=== PATIENT | male | born 1950 | race Caucasian/White ===

== ENCOUNTER 2020-10-01 11:00 | Emergency (ER) | payer MEDICARE, SELFPAY ==
[2020-10-01] VITALS (25 sets, daily range): BP systolic 123–159; BP diastolic 64–113; PULSE 44–64; RESP 12–24; TEMP 36.8; O2SAT 97–100
--- NOTE | 2020-10-01 11:08 | DI.RAD.S_ITS ---
PROCEDURE: XR CHEST 1V INDICATIONS: chest pain TECHNIQUE: One view of the chest was acquired. COMPARISON: None. FINDINGS: Surgical changes and devices: None. Lungs and pleura: Lungs are clear. No pleural effusions or pneumothorax. Mediastinum: Mediastinal contours appear normal. Heart size is normal. Bones and chest wall: No suspicious bony lesions. Overlying soft tissues appear unremarkable. IMPRESSION: No acute cardiopulmonary pathology. Dictated by: Jose Roberto Lerner M.D. on 10/01/2020 at 11:25 Approved by: Jose Roberto Lerner M.D. on 10/01/2020 at 11:28
[2020-10-01] MEDS: ASPIRIN 81 MG CHEW TAB 324 MG PO (11:18)
[2020-10-01] MEDS: NITROGLYCERIN 0.4 MG SL TAB SL ×2 (11:25→11:26)
--- NOTE | 2020-10-01 11:31 | PC.NURSE ---
Pt refusing 2nd dose of NTG SL despite RN's urging him to do so.
[2020-10-01 11:42] LABS: Add Manual Diff / Slide Review NO; Basophils Absolute Auto 100 /uL (0-100); Basophils Percent Auto 1.6 % (0-2); Eosinophils Absolute Auto 400 /uL (0-450); Eosinophils Percent Auto 7.7 % (2-4); Hematocrit 34.5 % (41-53); Hemoglobin 11.9 g/dL (13.5-17.5); Lymphocytes Absolute Auto 1500 /uL (1100-4500); Mean Corpuscular HGB Conc 34.4 % (30-36); Mean Corpuscular Hemoglobin 33.1 PG (26-34); Mean Corpuscular Volume 96.3 fL (80-100); Monocytes Absolute Auto 600 /uL (0-900); Monocytes Percent Auto 10.5 % (3-14); Neutrophils Absolute Auto 2700 /uL (1500-7000); Neutrophils Percent Auto 52.2 % (50-75); Platelet Count 278 X10^3/uL (150-400); Red Blood Cell Count 3.59 X10^6/uL (4.5-5.9); Red Cell Distribution Width 16.8 % (11.6-14.8); White Blood Cell Count 5.2 X10^3/uL (4.5-11.0)
--- NOTE | 2020-10-01 11:42 | ED_ITS ---
HPI - Chest Pain General Chief Complaint: Chest Pain Stated Complaint: chest pain Time Seen by Provider: 10/01/20 11:13 Source: patient and family Mode of arrival: Ambulatory Limitations: no limitations History of Present Illness HPI narrative: Patient is a 70-year-old male with history of coronary artery disease and 3 stents presenting with chest pain ongoing for the last 3 days. He says this in the center of his chest non radiating but he does notice some left arm numbness and tingling. Pain in his chest is not reproducible with left arm movement. He does nothing makes it better or worse. It does not appear that he is taking aspirin or Plavix. He denies any shortness of breath but does occasionally have a cough. He moved appear 2 months ago to be with his son. He denies any headache. He denies any exertional shortness of breath or orthopnea. He has no peripheral leg swelling. They did drive appear 2 months ago. He has not established care with a PCP. He admits to smoking a pack of cigarettes daily MD complaint: chest pain Onset (ago): day(s) (3) Duration: constant Onset: during rest Pain location: substernal Severity: moderate Severity scale (1-10): 4 Quality: aching Relieving factors: nothing Exacerbating factors: nothing Related Data Allergies Allergy/AdvReac Type Severity Reaction Status Date / Time amitriptyline [From Elavil] Allergy Unknown Verified 10/01/20 11:13 Review of Systems Review of Systems ROS Unobtainable: All systems reviewed & are unremarkable except as noted in HPI and below Constitutional Constitutional: Denies chills, Denies fever(s), Denies lethargy and Denies weakness Eyes Eyes: Denies change in vision, Denies eye discharge, Denies irritation and Denies loss of vision Cardiovascular Cardiovascular: Reports as per HPI, Denies dyspnea and Denies dyspnea on exertion Respiratory Respiratory: Denies cough, Denies dyspnea, Denies dyspnea on exertion and Denies wheezing Gastrointestinal Gastrointestinal: Denies abdominal pain, Denies change in bowel habits, Denies diarrhea, Denies nausea and Denies vomiting Musculoskeletal Musculoskeletal: Reports numbness and Reports tingling Comments: Chronic ongoing back pain not any worse Integumentary/Breasts Skin/Breast: Denies pruritus, Denies erythema, Denies rash and Denies wounds Neurologic Neurologic: Denies loss of vision, Reports numbness, Reports tingling and Denies weakness Allergic/Immunologic Allergic/Immunologic: Denies wheezing Patient History Social History Smoking Status: Current every day smoker Smoking Status: Current every day smoker tobacco type: cigarettes Substance Use Type: does not use Exam Initial Vital Signs Initial Vital Signs: Vital Signs Temperature 98.2 F 10/01/20 11:00 Pulse Rate 59 L 10/01/20 11:00 Respiratory Rate 24 10/01/20 11:00 Blood Pressure 159/113 H 10/01/20 11:00 Pulse Oximetry 100 10/01/20 11:00 GENERAL: Well-appearing, well-nourished and in no acute distress. HEENT: Head atraumatic,EOMI, pupils reactive, face symmetric, moist mucous membranes CARDIOVASCULAR: Regular rate and rhythm without murmurs, rubs or gallops. RESPIRATORY: Breath sounds equal bilaterally, no wheezes rales or rhonchi. ABDOMEN: Soft, nontender. Normoactive bowel sounds all 4 quadrants. No guard ing or rebound. EXTREMITIES: Normal range of motion, no clubbing or edema. Neurovascularly intact NEUROLOGICAL: Alert and oriented x4.Normal gait and speech. Cranial nerves II through XII grossly intact. SKIN: Warm, dry, no laceration, no petechiae, no rashes or lesions. Course Orders Ordered: ED Orders 10/01/20 11:08 XR chest 1V Stat EKG-12 Lead Stat 10/01/20 11:11 BNP [NT-proBNP (BNP-Adult 18+)] Stat Complete Blood Count AUTO DIFF Stat Comprehensive Metabolic Panel Stat D Dimer Stat Lipase Stat Magnesium Stat Partial Thromboplastin Time Stat Prothrombin Time INR Stat Troponin & CK Cardiac Panel Stat 10/01/20 11:25 COVID19 -Nasal swab/Pre-Proc Stat 10/01/20 12:19 EKG-12 Lead Stat Discontinued Medications Aspirin (Aspirin 81 Mg Chew Tab) 324 mg PO NOW ONE Stop: 10/01/20 11:09 Last Admin: 10/01/20 11:18 Dose: 324 mg Documented by: HARMONY Nitroglycerin (Nitroglycerin 0.4 Mg Sl Tab) 0.4 mg SL [id number] PRN PRN Reason: Chest Pain Last Admin: 10/01/20 11:26 Dose: 0.4 mg Documented by: Admin: 10/01/20 11:25 Dose: 0.4 mg Documented by: HARMONY Vital Signs Vital signs: Vital Signs - 8 hr 10/01/20 11:00 10/01/20 11:19 10/01/20 11:25 Temperature 98.2 F Pulse Rate 59 L 64 55 L Respiratory Rate 24 18 16 Blood Pressure 159/113 H 141/82 H Pulse Oximetry 100 100 100 10/01/20 11:26 10/01/20 11:30 10/01/20 11:35 Temperature Pulse Rate 56 L 57 L 57 L Respiratory Rate 13 13 Blood Pressure 141/82 H 137/74 138/80 Pulse Oximetry 99 99 10/01/20 11:45 10/01/20 11:50 10/01/20 11:55 Temperature Pulse Rate 52 L 50 L 50 L Respiratory Rate 14 16 16 Blood Pressure 155/75 H 132/70 131/70 Pulse Oximetry 98 99 98 10/01/20 12:00 10/01/20 12:05 10/01/20 12:10 Temperature Pulse Rate 49 L 50 L 52 L Respiratory Rate 16 14 19 Blood Pressure 129/71 132/74 127/64 Pulse Oximetry 97 98 97 10/01/20 12:15 10/01/20 12:20 10/01/20 12:25 Temperature Pulse Rate 51 L 51 L 49 L Respiratory Rate 17 15 16 Blood Pressure 133/68 135/71 134/72 Pulse Oximetry 98 99 98 10/01/20 12:30 10/01/20 12:40 10/01/20 12:45 Temperature Pulse Rate 48 L 49 L 48 L Respiratory Rate 14 14 14 Blood Pressure 132/64 123/67 Pulse Oximetry 98 98 97 10/01/20 12:50 10/01/20 12:55 10/01/20 13:00 Temperature Pulse Rate 50 L 47 L 50 L Respiratory Rate 15 12 21 Blood Pressure 129/70 135/69 Pulse Oximetry 98 98 97 10/01/20 13:01 10/01/20 13:05 10/01/20 13:10 Temperature Pulse Rate 48 L 46 L 44 L Respiratory Rate 19 15 15 Blood Pressure 155/78 H 133/64 132/70 Pulse Oximetry 97 97 100 10/01/20 13:15 Temperature Pulse Rate 44 L Respiratory Rate 13 Blood Pressure 138/75 Pulse Oximetry 99 MDM - Chest Pain Lab Data Attestation: I reviewed the patient's lab results. Result diagrams: 10/01/20 11:11 10/01/20 11:11 Labs: Lab Results 10/01/20 10/01/20 10/01/20 Range/Units 11:11 11:11 11:11 WBC 5.2 (4.5-11.0) X10^3/uL RBC 3.59 L (4.5-5.9) X10^6/uL Hgb 11.9 L (13.5-17.5) g/dL Hct 34.5 L (41-53) % MCV 96.3 (80-100) fL MCH 33.1 (26-34) PG MCHC 34.4 (30-36) % RDW 16.8 H (11.6-14.8) % Plt Count 278 (150-400) X10^3/uL Neut % (Auto) 52.2 (50-75) % Lymph % (Auto) 28.0 (25-40) % [place] % (Auto) 10.5 (3-14) % Eos % (Auto) 7.7 H (2-4) % Baso % (Auto) 1.6 (0-2) % Neut # (Auto) 2700 (3331-6174) /uL Lymph # (Auto) 1500 (6887-0574) /uL [place] # (Auto) 600 (0-900) /uL Eos # (Auto) 400 (0-450) /uL Baso # (Auto) 100 (0-100) /uL PT 11.4 (10.1-12.7) SECONDS INR 1.0 (0.9-1.3) APTT 35 (26.4-36.2) SECONDS D-Dimer 368 H (<230) ng/mL Sodium 143 (137-145) mmol/L Potassium 4.4 (3.4-5.1) mmol/L Chloride 107 (98-107) mmol/L Carbon Dioxide 27 (22-32) mmol/L BUN 22 H (9-20) mg/dL Creatinine 1.57 H (0.66-1.25) mg/dL Estimated GFR 44.2 L (>60) mL/min BUN/Creatinine Ratio 14.0 (6-22) Glucose 105 (80-110) mg/dL Calcium 10.4 H (8.4-10.2) mg/dL Magnesium (1.6-2.3) mg/dL Total Bilirubin 0.5 (0.2-1.3) mg/dL AST 46 (17-59) IU/L ALT 33 (<50) IU/L Alkaline Phosphatase 513 H (38-126) U/L Total Creatine Kinase 93 (55-170) U/L CK-MB (CK-2) TNP CK-MB (CK-2) Rel Index TNP Troponin I < 0.012 (0.01-0.034) ng/mL NT-Pro-B Natriuret Pep (<125) pg/mL Total Protein 8.7 H (6.3-8.2) g/dL Albumin 4.7 (3.5-5.0) g/dL Globulin 4.0 (1.7-4.1) g/dL Albumin/Globulin Ratio 1.2 (1.0-2.8) Lipase 72 (23-300) U/L SARS-CoV-2 (PCR) (Negative) 10/01/20 10/01/20 Range/Units 11:11 11:25 WBC (4.5-11.0) X10^3/uL RBC (4.5-5.9) X10^6/uL Hgb (13.5-17.5) g/dL Hct (41-53) % MCV (80-100) fL MCH (26-34) PG MCHC (30-36) % RDW (11.6-14.8) % Plt Count (150-400) X10^3/uL Neut % (Auto) (50-75) % Lymph % (Auto) (25-40) % [place] % (Auto) (3-14) % Eos % (Auto) (2-4) % Baso % (Auto) (0-2) % Neut # (Auto) (1709-5498) /uL Lymph # (Auto) (0398-5165) /uL [place] # (Auto) (0-900) /uL Eos # (Auto) (0-450) /uL Baso # (Auto) (0-100) /uL PT (10.1-12.7) SECONDS INR (0.9-1.3) APTT (26.4-36.2) SECONDS D-Dimer (<230) ng/mL Sodium (137-145) mmol/L Potassium (3.4-5.1) mmol/L Chloride (98-107) mmol/L Carbon Dioxide (22-32) mmol/L BUN (9-20) mg/dL Creatinine (0.66-1.25) mg/dL Estimated GFR (>60) mL/min BUN/Creatinine Ratio (6-22) Glucose (80-110) mg/dL Calcium (8.4-10.2) mg/dL Magnesium 2.3 (1.6-2.3) mg/dL Total Bilirubin (0.2-1.3) mg/dL AST (17-59) IU/L ALT (<50) IU/L Alkaline Phosphatase (38-126) U/L Total Creatine Kinase (55-170) U/L CK-MB (CK-2) CK-MB (CK-2) Rel Index Troponin I (0.01-0.034) ng/mL NT-Pro-B Natriuret Pep 187 H (<125) pg/mL Total Protein (6.3-8.2) g/dL Albumin (3.5-5.0) g/dL Globulin (1.7-4.1) g/dL Albumin/Globulin Ratio (1.0-2.8) Lipase (23-300) U/L SARS-CoV-2 (PCR) Negative (Negative) Imaging Data Chest x-ray: Radiologist's Impression: PROCEDURE: XR CHEST 1V INDICATIONS: chest pain TECHNIQUE: One view of the chest was acquired. COMPARISON: None. FINDINGS: Surgical changes and devices: None. Lungs and pleura: Lungs are clear. No pleural effusions or pneumothorax. Mediastinum: Mediastinal contours appear normal. Heart size is normal. Bones and chest wall: No suspicious bony lesions. Overlying soft tissues dustin ear unremarkable. IMPRESSION: No acute cardiopulmonary pathology. Dictated by: Jose Roberto Lerner M.D. on 10/01/2020 at 11:25 ECG Data Attestation: I personally reviewed and interpreted this ECG as follows: Prior ECG tracings: not available for review Interpretation: EKG 1. Sinus rhythm rate 56 WV interval 150 QRS [address] changes some artifact noted EKG 2. Sinus rhythm rate [address] changes similar to prior MDM Narrative Medical decision making narrative: 3277, at this time I recommended patient be transferred to [facility] for Cardiology can see and evaluate him. Symptoms are certainly concerning although blood work and EKGs are reassuring. Patient does not want to be admitted to hospital he does not want to be transferred. He is fully aware that cardiac etiology has not been completely ruled out and that he needs stress test approximately heart catheterization. He understands consequence of if no further evaluation. Son is in the room for this conversation. At this time patient would like to leave and go home nitroglycerin has taken away his pain. I have encouraged him to get a primary care provider and follow-up with cardiology as soon as possible he is also on her discharge return to the emergency department if his symptoms should worsen. Patient will be leaving against medical advice The patient is clinically sober, free from distracting injury, appears to have intact insight, judgment and reason. Does not meet criteria for involuntary hos pitalization. Patient has the capacity to make decisions. Discharge Plan Departure Patient Disposition: Left Against Medical Advice Clinical Impression: Chest pain Instructions: DI for Chest Pain Activity Restrictions/Additional Instructions: *You have been diagnosed with chest pain *What to do: Is strongly recommended that he stay in the hospital to have further heart testing. You need an echocardiogram and a stress test. Is recommended that you be transferred to [facility] she could be evaluated by a carton packaging machine operator and have is more testing done. You are welcome to return to any emergency department any time if her chest pain should return or worsen. It is also recommended that he call 911 if you should have worsening chest pain *Continue to take medications as directed Aspirin 81 mg *Follow up with your primary care provider in 2-3 days *Return to ER if you should have increasing chest pain, shortness of breath, weakness numbness or tingling or any new, worsening or concerning symptoms Referrals: Juan Manuel Duarte MD [Non-Staff] - Pedro Akers MD [Physician] - Stand Alone Forms: Against Medical Advice
[2020-10-01 11:48] LABS: Prothrombin Time 11.4 SECONDS (10.1-12.7)
[2020-10-01 11:50] LABS: COVID19 -Nasal RAPID Negative (Negative)
[2020-10-01 11:51] LABS: D Dimer 368 ng/mL (<230); PTT Partial Thromboplastin Tim 35 SECONDS (26.4-36.2)
[2020-10-01 11:54] LABS: Alanine Aminotransferase 33 IU/L (<50); Albumin 4.7 g/dL (3.5-5.0); Albumin Globulin Ratio 1.2 (1.0-2.8); Alkaline Phosphatase 513 U/L (38-126); Aspartate Aminotransferase 46 IU/L (17-59); Bilirubin Total 0.5 mg/dL (0.2-1.3); Blood Urea Nitrogen 22 mg/dL (9-20); Calcium 10.4 mg/dL (8.4-10.2); Carbon Dioxide 27 mmol/L (22-32); Chloride 107 mmol/L (98-107); Creatine Kinase 93 U/L (55-170); Estimated Glomerular Filt Rate 44.2 mL/min (>60); Glucose 105 mg/dL (80-110); HEMOLYSIS < 15 (0-50); Lipase 72 U/L (23-300); Potassium 4.4 mmol/L (3.4-5.1); Sodium 143 mmol/L (137-145); Total Protein 8.7 g/dL (6.3-8.2)
[2020-10-01 11:55] LABS: Magnesium 2.3 mg/dL (1.6-2.3)
[2020-10-01 12:07] LABS: NT-proBNP (BNP-Adult 18+) 187 pg/mL (<125)
[2020-10-01 12:11] LABS: Troponin I < 0.012 ng/mL (0.01-0.034)
== END 2020-10-01 13:29 | disposition left against medical advice (07) ==
PROVIDERS: Emergency Provider Emergency Medicine
DX: R07.9 Chest pain, unspecified (principal); R20.0 Anesthesia of skin; Z20.822 Contact with and (suspected) exposure to COVID-19
CPT/HCPCS: 36415; 71045; 80053; 82550; 83690; 83735; 83880; 84484; 85025; 85379; 85610; 85730; 87635; 93005; 93010; 99284; C9803

== ENCOUNTER → 2021-01-21 11:11 | Outpatient (CLI) | payer OTHER, SELFPAY ==
--- NOTE | 2021-01-21 | DI.RAD.S_ITS ---
PROCEDURE: XR KNEE RT 3V INDICATIONS: Pain in right knee TECHNIQUE: 3 views of the knee were acquired. COMPARISON: None. FINDINGS: Bones: No fractures or dislocations. No suspicious bony lesions. Chondrocalcinosis. Mild degenerative change. Soft tissues: No joint effusion. No suspicious soft tissue calcifications. IMPRESSION: Chondrocalcinosis. Mild degenerative change. No evidence acute bony abnormality of the right knee. If clinical suspicion and/or symptoms persist, further assessment with repeat plain films, or advanced imaging (e.g., CT, MRI, or bone scan) may be helpful for further assessment. Dictated by: Master Carrillo M.D. on 01/21/2021 at 15:12 Approved by: Master Carrillo M.D. on 01/21/2021 at 15:13
== END ==
PROVIDERS: PCP Internal Medicine; Referring Provider Internal Medicine; Visit Provider Internal Medicine
DX: M25.561 Pain in right knee (principal); M11.261 Other chondrocalcinosis, right knee; G89.29 Other chronic pain
CPT/HCPCS: 73562

== ENCOUNTER 2021-09-02 15:33 | Inpatient (IN) | payer OTHER, SELFPAY ==
[2021-09-02] VITALS (18 sets, daily range): BP systolic 149–219; BP diastolic 73–102; PULSE 50–64; RESP 14–29; TEMP 36.5–37; O2SAT 95–100; BMI 18.4
--- NOTE | 2021-09-02 15:47 | DI.CT.S_ITS ---
PROCEDURE: CT STROKE INDICATIONS: code stroke TECHNIQUE: Noncontrast 4.5 mm thick angled axial sections acquired from the foramen magnum to the vertex, with coronal reformats. For radiation dose reduction, the following was used: automated exposure control, adjustment of mA and/or kV according to patient size. COMPARISON: None. FINDINGS: Image quality: Excellent. CSF spaces: Basal cisterns are patent. No extra-axial fluid collections. The ventricles are symmetric in size and shape. Brain: No intracranial bleeds or masses. There is moderate cerebral volume loss for age, with resultant ventricular and sulcal prominence. There are severe periventricular and deep white matter chronic small vessel ischemic changes. There is intracranial internal carotid artery atherosclerosis. Skull and face: Calvarium and visualized facial bones appear intact, without suspicious lesions. Sinuses: Mucosal thickening noted in the sphenoid sinuses bilaterally, the of the left maxillary sinus, the left ethmoid air cells in the left frontal sinus. The mastoids are clear. IMPRESSION: 1. No acute intracranial disease process. 2. No intracranial hemorrhage. 3. Findings telephoned to Dr. Conroy on September 02, 2021 at 4:01 p.m. This study fulfills neurological imaging criteria for inclusion or exclusion of acute stroke therapies based on available published neurological guidelines. Dictated by: Naida Quick MD, PhD on 09/02/2021 at 16:02 Approved by: Naida Quick MD, PhD on 09/02/2021 at 16:06
--- NOTE | 2021-09-02 15:49 | DI.CT.S_ITS ---
PROCEDURE: CT ANGIO HEAD AND NECK INDICATIONS: code stroke TECHNIQUE: After the administration of intravenous contrast, 1 mm thick sections acquired from the aortic arch through the [employer] [place]. Post-contrast 4.5 mm thick sections then re-acquired from the foramen magnum to the vertex. 3-dimensional [id number] (MIP) and/or volume rendering reformats were acquired of the central intracranial vasculature and neck separately. COMPARISON: [facility], CT, CT STROKE, 09/02/2021, 15:50. FINDINGS: Image quality: Excellent. BRAIN: CSF spaces: Ventricles are normal in size and shape. Basal cisterns are patent. No extra-axial fluid collections. Brain: No midline shift. No intracranial bleeds or masses. No area of hypodensity in a large vascular distribution to suggest acute infarction. Periventricular hypodensity consistent with chronic microvascular ischemic change. Skull and face: Calvarium and facial bones appear intact, without suspicious lesions. Orbits appear normal. Sinuses: Left frontal sinus, paranasal sinus, and and maxillary sinus opacification. Mucosal thickening in the sphenoid sinuses. Right maxillary sinus is clear. Mastoids are clear. HEAD CT ANGIOGRAPHY: Anterior circulation: Intracranial internal carotid arteries are normal in size and flow. The flow within the paired anterior cerebral arteries is normal and symmetric. The flow within the middle cerebral arteries is normal and symmetric. The anterior communicating artery is seen. No aneurysms are seen. Posterior communicating arteries are hypoplastic or absent. Posterior circulation: Visualized portions of the vertebral arteries demonstrate normal caliber, and join to form a normal appearing basilar artery. Flow within the posterior cerebral arteries is normal and symmetric. No aneurysms are seen. NECK CT ANGIOGRAPHY: Carotid system: The great vessels demonstrate a conventional anatomy as they arise from the aortic arch. The origins of the common carotid arteries appear patent. The common carotid arteries demonstrate normal caliber and courses. The bifurcation regions are both patent. There is moderate calcified plaque at the right carotid bulb. No significant calcified plaque at the left carotid bulb. The internal carotid arteries demonstrate normal calibers and courses. Posterior circulation: The origins of the vertebral arteries both appear widely patent. The more superior extracranial portions of both vertebral arteries also demonstrate normal courses and calibers. They join to form a normal appearing basilar artery. Soft tissues: Visualized neck soft tissues demonstrate no suspicious abnormalities. Emphysematous change. Bones: No suspicious bony lesions. [id number] degenerative change in the cervical spine most pronounced at C5-C6. Visualized cervical spine appears normally aligned. IMPRESSION: 1. Chronic microvascular ischemic disease. 2. No large vessel occlusion. 3. No critical stenosis. Less than 50% stenosis in the ICAs. Moderate plaque at the right carotid bulb. 4. Left sinus opacification. 5. Emphysematous change at the lung apices. Comment: Findings were discussed with Abdon Conroy at the time of dictation. Any quantitative measurements of stenosis were performed using NASCET criteria. Dictated by: Fox Mazariegos M.D. on 09/02/2021 at 16:21 Approved by: Fox Mazariegos M.D. on 09/02/2021 at 16:34
[2021-09-02 16:04] LABS: Add Manual Diff / Slide Review NO; Basophils Absolute Auto 200 /uL (0-100); Basophils Percent Auto 2.7 % (0-2); Eosinophils Absolute Auto 1000 /uL (0-450); Eosinophils Percent Auto 16.1 % (2-4); Hematocrit 37.9 % (41-53); Hemoglobin 12.7 g/dL (13.5-17.5); Lymphocytes Absolute Auto 2100 /uL (1100-4500); Lymphocytes Percent Auto 33.9 % (25-40); Mean Corpuscular HGB Conc 33.4 % (30-36); Mean Corpuscular Hemoglobin 31.2 PG (26-34); Mean Corpuscular Volume 93.3 fL (80-100); Monocytes Absolute Auto 600 /uL (0-900); Monocytes Percent Auto 9.3 % (3-14); Neutrophils Absolute Auto 2400 /uL (1500-7000); Platelet Count 302 X10^3/uL (150-400); Red Blood Cell Count 4.06 X10^6/uL (4.5-5.9); White Blood Cell Count 6.3 X10^3/uL (4.5-11.0)
--- NOTE | 2021-09-02 16:14 | ED_ITS ---
HPI - Neuro Symptoms/Deficit General Chief Complaint: Neuro Symptoms/Deficit Stated Complaint: thinks he had a stroke today and 5 days ago Time Seen by Provider: 09/02/21 15:47 Source: patient Mode of arrival: Wheelchair History of Present Illness HPI Narrative: Patient is a 71-year-old male. States that he should be on medications but does not take any medications. Is diagnosed with high blood pressure. Nose that he has had a heart attack in the past that has many years ago. Thinks that several years ago he also had a stroke but this was never a specific diagnosis. He has had some left-sided weakness since that time. He has recently moved to the local area with his son. Approximately 5 days ago the patient's son started no ticing that he seemed to be having more problems with his left side. Dragging his left leg more than what he normally does. The patient also fell yesterday hitting his left side because of this. Did not seek treatment. Today at approximately 1000 hours patient was complaining of numbness on the left side of his face and also tingling and numbness of his right hand. Because of this patient was brought to the emergency department for evaluation. On Anticoagulants: No Related Data Allergies Allergy/AdvReac Type Severity Reaction Status Date / Time amitriptyline [From Elavil] Allergy Unknown Verified 10/01/20 11:13 Review of Systems Review of Systems ROS Unobtainable: All systems reviewed & are unremarkable except as noted in HPI and below Constitutional Constitutional: Denies fatigue, Denies fever(s) and Denies headache(s) Eyes Eyes: Denies change in vision ENT Ears, Nose, Mouth, and Throat: Denies headache(s) Cardiovascular Cardiovascular: Denies chest pain and Denies dyspnea Respiratory Respiratory: Denies cough and Denies dyspnea Gastrointestinal Gastrointestinal: Denies abdominal pain, Denies change in bowel habits, Denies nausea and Denies vomiting Musculoskeletal Musculoskeletal: Reports system reviewed and no additional complaints, except as documented and Reports as per HPI Integumentary/Breasts Skin/Breast: Reports system reviewed and no additional complaints, except as documented Neurologic Neurologic: Reports as per HPI, Denies confusion and Denies headache(s) Psychiatric Psychiatric: Denies confusion and Denies depression Endocrine Endocrine: Denies fatigue Hematologic/Lymphatic On Anticoagulants: No Allergic/Immunologic Allergic/Immunologic: Reports system reviewed and no additional complaints, except as documented Patient History Medical History Hypertension Social History household members: children Smoking Status: Current every day smoker alcohol intake: never Smoking Status: Current every day smoker tobacco type: cigarettes Substance Use Type: does not use Exam Initial Vital Signs Initial Vital Signs: Vital Signs Temperature 98.6 F 09/02/21 15:43 Pulse Rate 64 09/02/21 15:43 Respiratory Rate 20 09/02/21 15:43 Blood Pressure 208/102 H 09/02/21 15:43 Pulse Oximetry 100 09/02/21 15:43 Const General: cooperative and comfortable HENMT Head: normal to inspection and normocephalic Eyes General: appearance normal, both eyes and all related structures Pupils: PERRL EOM: EOM intact bilaterally Neck Neck: normal visual inspection Chest Chest: normal inspection of the chest Resp Effort & Inspection: normal respiratory effort Auscultation: clear to auscultation bilaterally Cardio Rate: regular rate Rhythm: regular rhythm GI Inspection: normal to inspection Skin General: no rashes or lesions noted Neuro General: patient alert, patient awake, patient oriented x3 and moves all extremities Speech: speech normal Extrem General: normal to inspection, capillary refill normal and No edema Psych Appearance: grossly normal and well kempt Scores GCS Inocencio coma scale eye opening: Spontaneous Eden coma scale verbal response: Orientated Eden coma scale motor response: Obey commands Eden coma scale total score: 15 NIH Stroke Scale Level of Conciousness: Alert, keenly responsive Ask month/age: Answers both questions correctly. Open/close eyes, close hand: Performs both tasks correctly Best gaze horizontal: Normal Visual burroughs: No visual loss Facial palsy: Normal symetrical movement Left arm drift: No drift for full 10 sec Right arm drift: No drift for full 10 sec Left leg drift: Drifts down, not to bed Right leg drift: No drift for full 5 sec Limb ataxia: Present in one limb Sensory on face/arms/legs: Mild to moderate sensory loss, can tell touch Best language: No aphasia, normal Dysarthria: Normal Extinction or inattention: No abnormality Total NIH Stroke scale score: 3 Course Orders Ordered: ED Orders 09/02/21 15:47 CT Stroke Stat 02/21/22 15:49 CT angio head and neck Stat 09/02/21 15:57 Complete Blood Count AUTO DIFF Stat Comprehensive Metabolic Panel Stat Lipase Stat Magnesium Stat Partial Thromboplastin Time Stat Prothrombin Time INR Stat Troponin & CK Cardiac Panel Stat 09/02/21 16:04 EKG-12 Lead Stat 09/02/21 16:24 COVID19 -Nasal swab/Pre-Proc Stat Acetaminophen (Acetaminophen 325 Mg Tablet) 650 mg PO Q6HR PRN PRN Reason: Fever/Mild Pain (1-3) Aspirin (Aspirin Ec 81 Mg Tablet) 81 mg PO DAILY [facility] Atorvastatin Calcium (Atorvastatin 20 Mg Tablet) 80 mg PO BEDTIME [facility] Clopidogrel Bisulfate (Clopidogrel 75 Mg Tablet) 75 mg PO DAILY [facility] Enoxaparin Sodium (Enoxaparin 40 Mg/0.4 Ml Syringe) 40 mg SUBCUT DAILY [facility] Labetalol HCl (Labetalol 20 Mg/4 Ml Syringe) 10 mg IV Q4HR PRN PRN Reason: Hypertension > 220 systolic Sodium Chloride (Sodium Chloride 0.9% Flush) 10 ml IV PRN PRN PRN Reason: Flush Sodium Chloride (Sodium Chloride 0.9% Flush) 10 ml IV BID NAYELY Discontinued Medications Labetalol HCl (Labetalol 20 Mg/4 Ml Syringe) 10 mg IV NOW ONE Stop: 09/02/21 16:16 Last Admin: 09/02/21 16:51 Dose: Not Given Documented by: BERNADETTE Labetalol HCl (Labetalol 20 Mg/4 Ml Syringe) 10 mg IV NOW ONE Stop: 09/02/21 17:14 Last Admin: 09/02/21 17:18 Dose: 10 mg Documented by: BERNADETTE Vital Signs Vital signs: Vital Signs - 8 hr 09/02/21 15:43 09/02/21 16:04 09/02/21 16:06 Temperature 98.6 F Pulse Rate 64 61 63 Respiratory Rate 20 23 Blood Pressure 208/102 H 211/97 H Pulse Oximetry 100 100 99 09/02/21 16:18 09/02/21 16:30 09/02/21 17:00 Temperature Pulse Rate 56 L 51 L 52 L Respiratory Rate 23 25 H 29 H Blood Pressure 165/98 H 186/86 H Pulse Oximetry 100 100 98 09/02/21 17:02 09/02/21 17:03 09/02/21 17:16 Temperature Pulse Rate 50 L 52 L 53 L Respiratory Rate 21 25 H 14 Blood Pressure 219/93 H 217/102 H 204/85 H Pulse Oximetry 98 99 98 09/02/21 17:18 Temperature Pulse Rate 50 L Respiratory Rate Blood Pressure 204/88 H Pulse Oximetry MDM - Neuro Symptoms/Deficit Lab Data Attestation: I reviewed the patient's lab results. Result diagrams: 09/02/21 15:57 09/02/21 15:57 Labs: Lab Results 09/02/21 09/02/21 09/02/21 Range/Units 15:57 15:57 15:57 WBC 6.3 (4.5-11.0) X10^3/uL RBC 4.06 L (4.5-5.9) X10^6/uL Hgb 12.7 L (13.5-17.5) g/dL Hct 37.9 L (41-53) % MCV 93.3 (80-100) fL MCH 31.2 (26-34) PG MCHC 33.4 (30-36) % RDW 16.0 H (11.6-14.8) % Plt Count 302 (150-400) X10^3/uL Neut % (Auto) 38.0 L (50-75) % Lymph % (Auto) 33.9 (25-40) % Dodge % (Auto) 9.3 (3-14) % Eos % (Auto) 16.1 H (2-4) % Baso % (Auto) 2.7 H (0-2) % Neut # (Auto) 2400 (0604-9599) /uL Lymph # (Auto) 2100 (5566-4957) /uL Dodge # (Auto) 600 (0-900) /uL Eos # (Auto) 1000 H (0-450) /uL Baso # (Auto) 200 H (0-100) /uL PT 11.0 (10.1-12.7) SECONDS INR 1.0 (0.9-1.3) APTT 34 (26.4-36.2) SECONDS Sodium 136 L (137-145) mmol/L Potassium 4.2 (3.4-5.1) mmol/L Chloride 102 (98-107) mmol/L Carbon Dioxide 29 (22-32) mmol/L BUN 31 H (9-20) mg/dL Creatinine 1.27 H (0.66-1.25) mg/dL Estimated GFR 56.2 L (>60) mL/min BUN/Creatinine Ratio 24.4 H (6-22) Glucose 103 (80-110) mg/dL Calcium 10.1 (8.4-10.2) mg/dL Magnesium 2.3 (1.6-2.3) mg/dL Total Bilirubin 0.7 (0.2-1.3) mg/dL AST 61 H (17-59) IU/L ALT 41 (<50) IU/L Alkaline Phosphatase 440 H (38-126) U/L Total Creatine Kinase 128 (55-170) U/L CK-MB (CK-2) 2.28 (<2.37) ng/mL CK-MB (CK-2) Rel Index 1.8 (1.5-5.0) % Troponin I < 0.012 (0.01-0.034) ng/mL Total Protein 8.6 H (6.3-8.2) g/dL Albumin 4.4 (3.5-5.0) g/dL Globulin 4.2 H (1.7-4.1) g/dL Albumin/Globulin Ratio 1.0 (1.0-2.8) Lipase 104 (23-300) U/L SARS-CoV-2 (PCR) (Negative) 09/02/21 Range/Units 16:24 WBC (4.5-11.0) X10^3/uL RBC (4.5-5.9) X10^6/uL Hgb (13.5-17.5) g/dL Hct (41-53) % MCV (80-100) fL MCH (26-34) PG MCHC (30-36) % RDW (11.6-14.8) % Plt Count (150-400) X10^3/uL Neut % (Auto) (50-75) % Lymph % (Auto) (25-40) % Dodge % (Auto) (3-14) % Eos % (Auto) (2-4) % Baso % (Auto) (0-2) % Neut # (Auto) (7687-2033) /uL Lymph # (Auto) (6509-9607) /uL Dodge # (Auto) (0-900) /uL Eos # (Auto) (0-450) /uL Baso # (Auto) (0-100) /uL PT (10.1-12.7) SECONDS INR (0.9-1.3) APTT (26.4-36.2) SECONDS Sodium (137-145) mmol/L Potassium (3.4-5.1) mmol/L Chloride (98-107) mmol/L Carbon Dioxide (22-32) mmol/L BUN (9-20) mg/dL Creatinine (0.66-1.25) mg/dL Estimated GFR (>60) mL/min BUN/Creatinine Ratio (6-22) Glucose (80-110) mg/dL Calcium (8.4-10.2) mg/dL Magnesium (1.6-2.3) mg/dL Total Bilirubin (0.2-1.3) mg/dL AST (17-59) IU/L ALT (<50) IU/L Alkaline Phosphatase (38-126) U/L Total Creatine Kinase (55-170) U/L CK-MB (CK-2) (<2.37) ng/mL CK-MB (CK-2) Rel Index (1.5-5.0) % Troponin I (0.01-0.034) ng/mL Total Protein (6.3-8.2) g/dL Albumin (3.5-5.0) g/dL Globulin (1.7-4.1) g/dL Albumin/Globulin Ratio (1.0-2.8) Lipase (23-300) U/L SARS-CoV-2 (PCR) Negative (Negative) Point of Care Testing Glucose POC [address] scan - head: Radiologist's Impression: [place] [address] CT Scan Report Signed Patient: Gareth Cotter MR#: [id number] : 1950 Acct:[id number] Age/Sex: 71 / M Date of Service: 09/02/21 Loc: ED Accession Number: [id number] ?? Procedure: CT Stroke Ordering Provider: Abdon Conroy D.O. PROCEDURE:? CT STROKE ? INDICATIONS:? code stroke ? TECHNIQUE:? Noncontrast 4.5 mm thick angled axial sections acquired from the foramen magnum to the vertex, with coronal reformats.? For radiation dose reduction, the following was used:? automated exposure control, adjustment of mA and/or kV according to patient size.? ? COMPARISON:? None. ? FINDINGS:? Image quality:? Excellent.? ? CSF spaces:? Basal cisterns are patent.? No extra-axial fluid collections.? The ventricles are symmetric in size and shape.? ? Brain:? No intracranial bleeds or masses.? There is moderate cerebral volume loss for age, with resultant ventricular and sulcal prominence.? There are severe periventricular and deep white matter chronic small vessel ischemic changes.? There is intracranial internal carotid artery atherosclerosis.? ? Skull and face:? Calvarium and visualized facial bones appear intact, without suspicious lesions.? ? Sinuses:? Mucosal thickening noted in the sphenoid sinuses bilaterally, the of the left maxillary sinus, the left ethmoid air cells in the left frontal sinus.? The mastoids are clear. ? IMPRESSION:? ? 1. No acute intracranial disease process.? ? 2. No intracranial hemorrhage. ? 3.? Findings telephoned to Dr. Conroy on September 02, 2021 at 4:01 p.m.? ? This study fulfills neurological imaging criteria for inclusion or exclusion of acute stroke therapies based on available published neurological guidelines.? ? ? Dictated by: Naida Quick MD, PhD on 09/02/2021 at 16:02 ? ? Approved by: Naida Quick MD, PhD on 09/02/2021 at 16:06? CTA - brain/neck: Radiologist's Impression: [place] [address] CT Scan Report Signed Patient: Gareth Cotter MR#: [id number] : 1950 Acct:[id number] Age/Sex: 71 / M Date of Service: 09/02/21 Loc: ED Accession Number: [id number] ?? Procedure: CT angio head and neck Ordering Provider: Abdon Conroy D.O. PROCEDURE:? CT ANGIO HEAD AND NECK ? INDICATIONS:? code stroke ? TECHNIQUE:? After the administration of intravenous contrast, 1 mm thick sections acquired from the aortic arch through the [place] of [place].? Post-contrast 4.5 mm thick sections then re-acquired from the foramen magnum to the vertex.? 3-dimensional lbvgsyk-ofcvfeagq-ghxuyqpsme (MIP) and/or volume rendering reformats were acquir ed of the central intracranial vasculature and neck separately. ? COMPARISON:? [facility], CT, CT STROKE, 09/02/2021, 15:50. ? FINDINGS:? Image quality:? Excellent.? ? BRAIN:? CSF spaces:? Ventricles are normal in size and shape.? Basal cisterns are patent.? No extra-axial fluid collections.? ? Brain:? No midline shift.? No intracranial bleeds or masses.? No area of hypodensity in a large vascular distribution to suggest acute infarction. Periventricular hypodensity consistent with chronic microvascular ischemic change. ? Skull and face:? Calvarium and facial bones appear intact, without suspicious lesions.? Orbits appear normal.? ? Sinuses:? Left frontal sinus, paranasal sinus, and and maxillary sinus opacification.? Mucosal thickening in the sphenoid sinuses.? Right maxillary sinus is clear.? Mastoids are clear. ? HEAD CT ANGIOGRAPHY:? Anterior circulation:? Intracranial internal carotid arteries are normal in size and flow.? The flow within the paired anterior cerebral arteries is normal and symmetric.? The flow within the middle cerebral arteries is normal and symmetric.? The anterior communicating artery is seen.? No aneurysms are seen.? Posterior communicating arteries are hypoplastic or absent. ? Posterior circulation:? Visualized portions of the vertebral arteries dem onstrate normal caliber, and join to form a normal appearing basilar artery.? Flow within the posterior cerebral arteries is normal and symmetric.? No aneurysms are seen.? ? NECK CT ANGIOGRAPHY:? Carotid system:? The great vessels demonstrate a conventional anatomy as they arise from the aortic arch.? The origins of the common carotid arteries appear patent.? The common carotid arteries demonstrate normal caliber and courses.? The bifurcation regions are both patent.? There is moderate calcified plaque at the right carotid bulb.? No significant calcified plaque at the left carotid bulb. The internal carotid arteries demonstrate normal calibers and courses.? ? Posterior circulation:? The origins of the vertebral arteries both appear widely patent.? The more superior extracranial portions of both vertebral arteries also demonstrate normal courses and calibers.? They join to form a normal appearing basilar artery.? ? Soft tissues:? Visualized neck soft tissues demonstrate no suspicious ab normalities.? Emphysematous change.? ? Bones:? No suspicious bony lesions.? Swlf-ou-zlyfgqga degenerative change in the cervical spine most pronounced at C5-C6.? Visualized cervical spine appears normally aligned.? ? ? IMPRESSION:? 1. Chronic microvascular ischemic disease. ? 2. No large vessel occlusion.? ? 3. No critical stenosis.? Less than 50% stenosis in the ICAs.? Moderate plaque at the right carotid bulb. ? 4. Left sinus opacification. ? 5. Emphysematous change at the lung apices.? ? Comment: Findings were discussed with Abdon Conroy at the time of dictation. ? Any quantitative measurements of stenosis were performed using NASCET criteria.? ? ? Dictated by: Fox Mazariegos M.D. on 09/02/2021 at 16:21 ? ? Approved by: Fox Mazariegos M.D. on 09/02/2021 at 16:34? ECG Data Attestation: I personally reviewed and interpreted this ECG as follows: Interpretation: Sinus rhythm Ventricular rate is 60 Normal axis Normal QRS Normal QTC Nonspecific ST T wave changes MDM Narrative Medical decision making narrative: Patient outside the window for tPA. Apparently his symptoms started worsening 5 days ago and he is greater than 4-1/2 hours after the onset of his symptoms today. Has an NIH score of 3. His head CT and CTA are unremarkable. Labs unremarkable. Patient is hypertensive. He knows he has a history of coronary artery disease and high blood pressure but does not take any medication. Given his presentation today do have concern about acute neurologic changes so will admit the patient for further evaluation and treatment. Discussed the case with Dr. Burch who will admit for further evaluation and treatment. Critical Care Time Critical Care Time Critical Care Time: Yes Total Critical Care Time: 35 Attestation: The high probability of a clinically significant, sudden or life threatening deterioration of the neurologic system(s) required my full and direct attention, intervention and personal management. The aggregate critical care time was [35] minutes. This time is in addition to time spent performing reported procedures but includes the following: [x] Data Review and interpretation [x] Patient assessment and monitoring of vital signs [x] Documentation [x] Medication orders and management Discharge Plan Departure Patient Disposition: Admitted As Inpatient Clinical Impression: Cerebrovascular accident, Hypertension Admit Date/Time: 09/02/21 17:20 Admit Provider: Noah Burch
[2021-09-02 16:18] LABS: PTT Partial Thromboplastin Tim 34 SECONDS (26.4-36.2)
[2021-09-02 16:22] LABS: Alanine Aminotransferase 41 IU/L (<50); Albumin 4.4 g/dL (3.5-5.0); Alkaline Phosphatase 440 U/L (38-126); Aspartate Aminotransferase 61 IU/L (17-59); BUN Creatinine Ratio 24.4 (6-22); Bilirubin Total 0.7 mg/dL (0.2-1.3); Blood Urea Nitrogen 31 mg/dL (9-20); Calcium 10.1 mg/dL (8.4-10.2); Carbon Dioxide 29 mmol/L (22-32); Chloride 102 mmol/L (98-107); Creatine Kinase 128 U/L (55-170); Estimated Glomerular Filt Rate 56.2 mL/min (>60); Globulin 4.2 g/dL (1.7-4.1); Glucose 103 mg/dL (80-110); HEMOLYSIS < 15 (0-50); Lipase 104 U/L (23-300); Magnesium 2.3 mg/dL (1.6-2.3); Potassium 4.2 mmol/L (3.4-5.1); Sodium 136 mmol/L (137-145); Total Protein 8.6 g/dL (6.3-8.2)
[2021-09-02 16:33] LABS: Troponin I < 0.012 ng/mL (0.01-0.034)
[2021-09-02 16:37] LABS: CKMB % Relative Index 1.8 % (1.5-5.0); Creatine Kinase MB 2.28 ng/mL (<2.37)
[2021-09-02 16:57] LABS: COVID19 -Nasal RAPID Negative (Negative)
[2021-09-02] MEDS: LABETALOL 20 MG/4 ML SYRINGE 10 MG IV (17:18)
--- NOTE | 2021-09-02 18:02 | DI.ECHO.S_ITS ---
[facility] +---------+ : : [address] : : : : [id number] : : : : Phone: [phone] Echocardiogram Report + + :Name: LINDA ROBERTSON Study Date: 09/03/2021 Height: 68 in : [facility] ReadingLocation: Weight: 140 lb : : Gender: Male BSA: 1.8 m2 : :: 1950 Age: 71 yrs BP: 149/85 mmHg: :Reason For Study: CVA : :Ordering Physician: TANVI, : :ZIA Performed By: Ute Ramirez : :Referring: ZIA TINAJERO : + + Interpretation Summary The left ventricle is normal in size and wall thickness. The ejection fraction is estimated to be 55-60%. The right ventricle is normal in size and function. The aortic valvue is likely bicuspid, uncertain due to suboptimal image quality. No significant valvular disease. Injection of contrast documented no interatrial shunt. No prior studies available for comparison. Procedure: A two-dimensional transthoracic echocardiogram with color flow and Doppler was performed. The study quality was technically adequate. There is no prior echocardiogram noted for this patient. A saline contrast injection was performed to assess for cardiac shunting. The injection was performed through an intravenous line in the right arm. The patient was in sinus bradycardia with heart rates between 46-54 bpm during the exam. Left Ventricle: The left ventricle is normal in size and wall thickness. RWT 0.38. The ejection fraction is estimated to be 55-60%. There are no focal wall motion abnormalities. Right Ventricle: The right ventricle is normal in size and function. Atria: The left atrial size is normal. Right atrial size is normal. There is no Doppler evidence for an interatrial shunt. Injection of contrast documented no interatrial shunt. Mitral Valve: The mitral valve is normal in structure and function. There is trace mitral regurgitation. Aortic Valve: The aortic valve is mildly calcified. The aortic valvue appears bicuspid. suboptial crossectional image aquality. There is no aortic valve stenosis. No aortic regurgitation is present. Tricuspid Valve: The tricuspid valve is normal in structure and function. There is mild tricuspid regurgitation. Pulmonic Valve: The pulmonic valve leaflets are thin and pliable; valve motion is normal. There is no pulmonic valvular regurgitation. Great Vessels: The aortic root is normal size. The ascending aorta could not be visualized. The IVC is of normal diameter and collapses greater than 50% with a sniff. This suggests a low right atrial pressure of 3 mm Hg. Pericardium/ Pleura There is no pericardial effusion. There is no pleural effusion. MMode/2D Measurements & Calculations LVIDd: 3.8 cm LVOT diam: 2.2 cm LVIDs: 2.6 cm Ao root diam: 3.7 cm FS: 31.8 % IVSd: 1.1 cm LVPWd: 0.73 cm LV longoria. diameter/BSA (cm/m^2): 2.2 LV sys. diameter/BSA (cm/m^2): 1.5 LA A2 area: 11.9 cm2 RA long axis: 4.1 cm LA A4 area: 13.4 cm2 RA area: 15.3 cm2 LA length (vol): 4.2 cm RA vol: 48.9 ml LA vol: 31.8 ml RA : 27.9 ml/m2 LA vol index: 18.1 ml/m2 IVC diam: 0.69 cm RVD1 (basal): 3.4 cm TAPSE: 1.7 cm Doppler Measurements & Calculations Ao V2 max: 87.6 cm/sec LVOT Max Vin: 77.0 cm/sec Ao V2 mean: 60.2 cm/sec LV V1 max P.4 mmHg Ao max P.1 mmHg LV V1 VTI: 17.9 cm Ao mean P.7 mmHg CHRISTINE(I,D): 3.6 cm2 Ao V2 VTI: 18.8 cm CHRISTINE(V,D): 3.3 cm2 sev ratio: 0.95 CHRISTINE indexed to BSA (cm^2/m^2): 2.0 MV E max vin: 48.1 cm/sec PA V2 max: 78.5 cm/sec MV A max vin: 37.1 cm/sec PA V2 mean: 55.0 cm/sec MV E/A: 1.3 PA mean P.4 mmHg Med Peak E' Vin: 5.9 cm/sec PA pr(Accel): 25.9 mmHg E/E' med: 8.2 Lat Peak E' Vin: 6.3 cm/sec E/E' lat: 7.6 E/e' average: 7.9 MV dec time: 0.21 sec SV(LVOT): 66.7 ml Reading Physician:DIANA
--- NOTE | 2021-09-02 18:06 | PM.HP.1 ---
History of Present Illness History of Present Illness Chief complaint: thinks he had a stroke today and 5 days ago Narrative: Mr. Cotter is a 71M with PMH CAD s/p stents, CVA, HTN, HL, GERD, depression who presents with left sided numbness and weakness. Patient states he has had a stroke in the past, it occurred while asleep over a year ago, at the time he was living in a different state. He has had residual left sided weakness since then. He also has CAD s/p stents. He is intermittently compliant with all his medications. He notes that he started having left sided numbness and weakness that started perhaps five days ago. He notes that it began worsening especially in the last two days. He was unsteady and fell yesterday and bruised his torso. Today he noted worsening numbness in his left hand that then included numbness in his leg and slight numbness in his right hand. He felt his left leg and hand were weaker than his baseline. His son notes some chronic decline and that he has had incontinent episodes overnight. He denies any saddle anesthesia. In the ED workup was done, vitals notable for blood pressure 208/102. Labs notable for WBC 6.3, hgb 12.7, plts 302. Na 136, BUN 31, creatinine 1.27. CT head and CT head/neck showed no acute process. He was admitted for further treatment. PMH: CAD s/p stents, CVA, HTN, HL, GERD, Depression Social history: smokes cigarettes occasionally, marijuana smoker, rare alcohol use Family history: denies stroke or CVA in parents Patient History Family & Social History Tobacco & Substance use: Smoking Status Current every day smoker Substance Use Type does not use Meds Home Medications and Allergies Allergies Allergy/AdvReac Type Severity Reaction Status Date / Time amitriptyline [From Elavil] Allergy Unknown Verified 10/01/20 11:13 Review of Systems Review of Systems Narrative: 14 systems reviewed and negative aside from what is noted in HPI Exam Vital Signs (past 8 hours): - 09/02/21 15:43 09/02/21 16:04 09/02/21 16:06 Temperature 98.6 F Pulse Rate 64 61 63 Respiratory Rate 20 23 Blood Pressure 208/102 H 211/97 H Pulse Oximetry 100 100 99 09/02/21 16:18 09/02/21 16:30 09/02/21 17:00 Temperature Pulse Rate 56 L 51 L 52 L Respiratory Rate 23 25 H 29 H Blood Pressure 165/98 H 186/86 H Pulse Oximetry 100 100 98 09/02/21 17:02 09/02/21 17:03 09/02/21 17:16 Temperature Pulse Rate 50 L 52 L 53 L Respiratory Rate 21 25 H 14 Blood Pressure 219/93 H 217/102 H 204/85 H Pulse Oximetry 98 99 98 09/02/21 17:18 09/02/21 17:30 09/02/21 17:31 Temperature Pulse Rate 50 L 52 L 51 L Respiratory Rate 18 19 Blood Pressure 204/88 H 180/81 H Pulse Oximetry 99 99 Oxygen Delivery Method Room Air Narrative Exam Narrative: GEN: no acute distress HEENT: moist mucous membranes NECK: trachea midline, no JVD PULM: clear bilaterally, no wheezes, rhonchi, rales ABD: soft, nontender, nondistended, no organomeagly, normal bowel sounds EXT: warm and well perfused with no edema SKIN: bruises on trunk NEURO: awake alert, speech clear, no facial droop, ataxic with heel to diaz and finger to nose, subjective numbness in left palm, 4/5 strength hand drip and left ankle, right side with normal strength PSYCH: pleasant, appropriate affect Objective Labs Result Diagrams: 09/02/21 15:57 09/02/21 15:57 Labs: Laboratory Results - last 24 hr 09/02/21 09/02/21 09/02/21 15:57 15:57 15:57 WBC 6.3 RBC 4.06 L Hgb 12.7 L Hct 37.9 L MCV 93.3 MCH 31.2 MCHC 33.4 RDW 16.0 H Plt Count 302 Neut % (Auto) 38.0 L Lymph % (Auto) 33.9 [place] % (Auto) 9.3 Eos % (Auto) 16.1 H Baso % (Auto) 2.7 H Neut # (Auto) 2400 Lymph # (Auto) 2100 [place] # (Auto) 600 Eos # (Auto) 1000 H Baso # (Auto) 200 H PT 11.0 INR 1.0 APTT 34 Sodium 136 L Potassium 4.2 Chloride 102 Carbon Dioxide 29 BUN 31 H Creatinine 1.27 H Estimated GFR 56.2 L BUN/Creatinine Ratio 24.4 H Glucose 103 Calcium 10.1 Magnesium 2.3 Total Bilirubin 0.7 AST 61 H ALT 41 Alkaline Phosphatase 440 H Total Creatine Kinase 128 CK-MB (CK-2) 2.28 CK-MB (CK-2) Rel Index 1.8 Troponin I < 0.012 Total Protein 8.6 H Albumin 4.4 Globulin 4.2 H Albumin/Globulin Ratio 1.0 Lipase 104 SARS-CoV-2 (PCR) 09/02/21 16:24 WBC RBC Hgb Hct MCV MCH MCHC RDW Plt Count Neut % (Auto) Lymph % (Auto) [place] % (Auto) Eos % (Auto) Baso % (Auto) Neut # (Auto) Lymph # (Auto) [place] # (Auto) Eos # (Auto) Baso # (Auto) PT INR APTT Sodium Potassium Chloride Carbon Dioxide BUN Creatinine Estimated GFR BUN/Creatinine Ratio Glucose Calcium Magnesium Total Bilirubin AST ALT Alkaline Phosphatase Total Creatine Kinase CK-MB (CK-2) CK-MB (CK-2) Rel Index Troponin I Total Protein Albumin Globulin Albumin/Globulin Ratio Lipase SARS-CoV-2 (PCR) Negative Assessment & Plan Assessment & Plan narrative: Mr. Cotter is a 71M with PMH CVA, CAD s/p stents, HTN, HL who presents with worsening left sided weakness and numbness concering for possible CVA 1. Subacute left sided numbness/weakness -concern for possible etiology of cva -CT head and CT angio head/neck show no acute process -symptoms have been occurring for days, patient is well outside window for TPA -patient takes aspirin at home, will continue -add plavix and high dose statin -[facility] q4 -check lipids and a1c -ordered PT/OT and speech therapy -swallow screen ordered -he does note bilateral symptoms, though left > right, also some possible incontinence, no neck pain, but will rule out cervical disease with c-spine CT 2. History of CVA -continue aspirin, statin 3. History of CAD s/p stents -continue aspirin, statin 4. Hypertensive urgency -for now as patient has likely had acute cva allow for permissive hypertension -goal is for sbp <220, bring down BP slowly -ordered for PRN labetalol 5. Elevated creatinine -on admit creatinine of 1.27 -last checked in September 2020 was 1.57 -probable CKD stage 2 -monitor creatinine closely 5. Hyperlipidemia -continue statin 6. GERD -continue ppi 7. Depression -continue sertraline CODE: DNR Proxy: Wander Cotter, son I have utilized all available resources to reconcile patient's home medications Time Spent With Patient Critical Care time: I spent a total of [] minutes of critical care time on this patient's care today; this time is exclusive of procedural time. Quality MIPS - Admit I confirm the patient?s Advance Care Plan is present, Code status is documented, Surrogate decision maker is in patient?s record [If Yes, STOP here]: Yes
[2021-09-02] MEDS: ATORVASTATIN 20 MG TABLET 80 MG PO (20:28)
[2021-09-02] MEDS: SODIUM CHLORIDE 0.9% FLUSH 10 ML IV (20:29)
[2021-09-02] MEDS: ZOLPIDEM 5 MG TABLET PO (20:54)
[2021-09-03] VITALS (13 sets, daily range): BP systolic 140–171; BP diastolic 78–86; PULSE 49–55; RESP 16–18; TEMP 36.4–37.2; O2SAT 95–100
[2021-09-03 05:56] LABS: Add Manual Diff / Slide Review NO; Basophils Absolute Auto 100 /uL (0-100); Basophils Percent Auto 2.1 % (0-2); Eosinophils Absolute Auto 1100 /uL (0-450); Eosinophils Percent Auto 16.6 % (2-4); Hematocrit 35.8 % (41-53); Hemoglobin 11.8 g/dL (13.5-17.5); Lymphocytes Absolute Auto 1700 /uL (1100-4500); Lymphocytes Percent Auto 26.6 % (25-40); Mean Corpuscular Hemoglobin 30.9 PG (26-34); Mean Corpuscular Volume 93.6 fL (80-100); Monocytes Absolute Auto 600 /uL (0-900); Monocytes Percent Auto 8.9 % (3-14); Neutrophils Absolute Auto 3000 /uL (1500-7000); Neutrophils Percent Auto 45.8 % (50-75); Platelet Count 257 X10^3/uL (150-400); Red Blood Cell Count 3.83 X10^6/uL (4.5-5.9); Red Cell Distribution Width 16.5 % (11.6-14.8); White Blood Cell Count 6.5 X10^3/uL (4.5-11.0)
[2021-09-03 06:02] LABS: BUN Creatinine Ratio 25.4 (6-22); Blood Urea Nitrogen 30 mg/dL (9-20); Calcium 9.6 mg/dL (8.4-10.2); Carbon Dioxide 25 mmol/L (22-32); Chloride 105 mmol/L (98-107); Cholesterol 224 mg/dL (140-199); Estimated Glomerular Filt Rate > 60.0 mL/min (>60); Glucose 87 mg/dL (80-110); HDL Cholesterol 55 mg/dL (40-60); HEMOLYSIS < 15 (0-50); LDL Cholesterol Calculated 142 mg/dL (<100); Sodium 135 mmol/L (137-145); Triglycerides 134 mg/dL (35-150)
[2021-09-03 06:12] LABS: Hemoglobin A1C% w Est Avg Glu 5.4 % (4.0-6.0)
[2021-09-03] MEDS: ENOXAPARIN 40 MG/0.4 ML SYRINGE SUBCUT (10:11)
[2021-09-03] MEDS: CLOPIDOGREL 75 MG TABLET PO (10:11)
[2021-09-03] MEDS: ASPIRIN EC 81 MG TABLET PO (10:11)
[2021-09-03] MEDS: SODIUM CHLORIDE 0.9% FLUSH 10 ML IV ×2 (10:11→20:48)
--- NOTE | 2021-09-03 11:03 | OT.IP.EVAL ---
Past Medical History (Last Reviewed 09/02/21 @ 18:49 by Abdon Conroy DO) Hypertension Occupational Therapy Inpatient Evaluation/Re-Eval M1 PT/OT-IP Prior Functional Status Start: 09/03/21 09:37 Freq: NEEDED Status: Active Protocol: Document 09/03/21 10:35 [facility] (Rec: 09/03/21 11:47 [facility] [id number]) Medical Review Prior Functional Status Medical History Reviewed Yes Mobility and Gait Gareth was living in his son's basement. He reports he was mostly just lying in bed. He does have a 4WW. He reports he needed the assistance of his son for all ADLs. No stairs to enter. His son does work, but pt reports DIL would be available If I yelled Activities of Daily Living and IADL's Pt states prior to two weeks ago able to do all his ADL need and able to walk with his 4ww on his own. Social History Household Members children Living Arrangements House Number of Floors (Floors) Two Floors Number of Stairs To Enter/Railing? 0 Home Environment Standard Height Toilet,Tub/ Shower Home Equipment Four Wheel Walker,Shower Seat with Backrest,Hand Held Shower Employment Status Retired M2 OT-IP Current Condition Start: 09/03/21 11:31 Freq: Status: Active Protocol: Document 09/03/21 10:35 [facility] (Rec: 09/03/21 11:47 [facility] [id number]) Occupational Therapy Current Condition Current Condition Evaluation Date 09/03/21 Treatment Diagnosis CVA, decreased mobility Diagnosis Onset Date 09/02/21 M3 OT- IP Subjective and Pain Start: 09/03/21 11:31 Freq: Status: Active Protocol: Document 09/03/21 10:35 [facility] (Rec: 09/03/21 11:47 [facility] [id number]) OT- Subjective Occupational Therapy Visit Type Type Initial Evaluation Visit Start Time 10:35 Visit Stop Time 11:03 Total Visit Minutes 28 Occupational Therapy Visit Comments Patient Comments Pt agreed to get up for OT eval. Patient/Caregiver Goals TO get better. OT Pain Assessment Pain When Pain Assessed At Rest Pain Present Pain Present Denied Pain M4 OT- IP ADL's Start: 09/03/21 11:31 Freq: Status: Active Protocol: Document 09/03/21 10:35 [facility] (Rec: 09/03/21 11:47 [facility] [id number]) OT LCL-Jvlj-Ysuaved Comments OT Self-Feeding Comments NOt at meal time. OT ADL-Grooming Comments OT Grooming Comments Not performed. OT ADL-Dressing General Eval Lower Body Dressing Ability Maximum Assistance Comments OT Dressing Comments Pt needing MAX A for LB dressing due to decreased sitting balance. OT ADL-Toileting Comments OT Toileting Comments Pt not having to go. OT ADL-Bathing Comments OT Bathing Comments NOt performed. M5 OT- IP IADL's Start: 09/03/21 11:31 Freq: Status: Active Protocol: Document 09/03/21 10:35 [facility] (Rec: 09/03/21 11:47 [facility] [id number]) OT-Instrumental Activities of Daily Living Medication Management Medication Management Caregiver Administers Money Management Money Management Caregiver Provides Assistance Meal Preparation Meal Preparation Caregiver Provides Assist Poly Area Supervisor Poly Area Supervisor Caregiver Provides Assist M6 OT- IP Functional Cognition Start: 09/03/21 11:31 Freq: Status: Active Protocol: Document 09/03/21 10:35 [facility] (Rec: 09/03/21 11:47 [facility] [id number]) Cognitive Factors Limiting Selfcare Function Cognitive Ability Level of Alertness Alert Patient Orientation Name,Place Attention Span Ability Capable of Focused Attention, Capable of Sustained Attention Ability to Follow Commands Able to Follow One Step Commands Cognitive Comments Cognitive Assessment Comments Pt able to follow commands for bed mobility and needing assistance for for reassurance and safety. Pt is very fearful of falling. OT- Vision and Hearing OT- Vision Assessment Visual Acuity Glasses For Reading Vision Assessment Comments Pt having trouble to read the clock accurately. M7 OT- IP Mobility and Balance Start: 09/03/21 11:31 Freq: Status: Active Protocol: Document 09/03/21 10:35 [facility] (Rec: 09/03/21 11:47 [facility] [id number]) OT- Bed Mobility Assessment Rolling Type of Rolling Roll to Right Level of Assistance Minimal Assistance Supine to Sit Supine to Sit Assist Moderate Assistance,1 Person Assistance Scooting Scooting to Edge of Bed Contact Guard Assistance OT-Transfer Assessment Sit to and From Stand Sit to and from Stand Minimal Assistance,Moderate Assistance Technique Transfer Destination Bed Transfer Technique Stand Step Pivot Devices Transfer Assistive Devices Gait Belt,Front Wheeled Walker Comments Mobility Comments Pt needing MODA from sidelying to sitting at the edge of the bed. MIN/MODA to stand to FWW . OT- Balance Assessment Sitting Balance and Reactions Static Sitting Balance Ability Poor Dynamic Sitting Balance Ability Poor Standing Balance and Reactions Static Standing Balance Ability Poor Comments Other Balance Tests/Deviations/Treatment Pt tends to lean backwards : while sitting upright. M8 OT- IP Objective Assessments Start: 09/03/21 11:31 Freq: Status: Active Protocol: Document 09/03/21 10:35 [facility] (Rec: 09/03/21 11:47 [facility] [id number]) OT Gross Range of Motion Upper Extremity Range of Motion Assessment Within Functional Limits OT Strength Comments Strength Comments RUE 5/5, LUE 4-/5 to 4/5 OT- Coordination Assessment Upper Extremity Finger to Nose Test Left UE Impaired OT Sensation Assessment Comments Summary Comments Numbness of rright hand and throughout left arm M9 OT- IP Assessment and Plan Start: 09/03/21 11:31 Freq: Status: Active Protocol: Document 09/03/21 10:35 [facility] (Rec: 09/03/21 11:47 [facility] [id number]) OT Summary Assessment and Plan Potential Rehabilitation Potential Good Analytic Complexity at Evaluation Moderate Summary OT Impairments Strength,Balance,Coordination, Sensation,Functional Cognition ,Functional Mobility,Self- Feeding,Grooming,Dressing, Toileting,Bathing,Toilet Transfers,Shower Transfers, Activity Tolerance Progress Towards Goals Slow Progress due to Medical Issues,Slow Progress due to Activity Tolerance Assessment Summary Pt MOD complexity and main barriers are decreased dynamic sitting balance, unsteady on his feet, decreased activity tolerance, and now needing assist for all Adl and mobility needs and far for his baseline of 2 weeks ago of [place] with all needs except for SBA to get into and out of the shower. Pt would benefit from skilled rehab at this time. Goals Self-Feeding Goal Independent Grooming Goal Independent Dressing Goal Independent Toileting Goal Independent Bathing Goal Standby Assistance Toilet Transfer Goal Independent Shower Transfer Goal Independent Patient/Caregiver Education Goal Caregiver Independent Assisting Patient Days to Meet Goals 15 Frequency of Treatment Frequency Of Treatment Once a Day Treatment Plan OT Treatment Plan ADL Training,Functional Cognition Training,Functional Mobility,Patient/Family Education,Discharge Planning Discharge Recommendations OT Discharge Recommendations SNF Rehab Transportation Needs at Discharge Wheelchair/Cabulance
--- NOTE | 2021-09-03 11:12 | P.PN_ITS ---
Subjective Subjective Date Patient Seen: 09/03/21 Time Patient Seen: 11:12 Interval history: 71 year old male admitted with probable stroke. MRI confirmed today. Complains of left sided weakness and numbness, does not feel like he is steady on his feet. Complains that his left side constantly is feeling liike it's going to sleep. Exam Vital Signs (past 8 hours): - 09/03/21 04:00 09/03/21 06:00 09/03/21 08:00 Temperature 98.4 F 99 F Pulse Rate 52 L 51 L Respiratory Rate 16 16 Blood Pressure 140/78 158/80 H Pulse Oximetry 97 96 100 09/03/21 10:00 Temperature Pulse Rate Respiratory Rate Blood Pressure Pulse Oximetry 96 Oxygen Delivery Method Room Air Oxygen Flow Rate 0 Narrative Exam Narrative: GEN: no acute distress, thin and chronically ill appearing. HEENT: moist mucous membranes, PERRL. NECK: trachea midline, no JVD PULM: clear bilaterally, no wheezes, rhonchi, rales ABD: soft, nontender, nondistended, no organomeagly, normal bowel sounds EXT: warm and well perfused with no edema SKIN: bruises on trunk NEURO: awake alert, speech clear, no facial droop, ataxic with heel to diaz and finger to nose, subjective numbness in left palm, 4/5 strength hand manager digital ad operations and left ankle, right side with normal strength. Reports subjective numbness on left upper and lower extremities. PSYCH: pleasant, appropriate affect Objective Labs Result Diagrams: 09/03/21 05:30 09/03/21 05:30 Labs: Laboratory Results - last 24 hr 09/02/21 09/02/21 09/02/21 15:57 15:57 15:57 WBC 6.3 RBC 4.06 L Hgb 12.7 L Hct 37.9 L MCV 93.3 MCH 31.2 MCHC 33.4 RDW 16.0 H Plt Count 302 Neut % (Auto) 38.0 L Lymph % (Auto) 33.9 [place] % (Auto) 9.3 Eos % (Auto) 16.1 H Baso % (Auto) 2.7 H Neut # (Auto) 2400 Lymph # (Auto) 2100 [place] # (Auto) 600 Eos # (Auto) 1000 H Baso # (Auto) 200 H PT 11.0 INR 1.0 APTT 34 Sodium 136 L Potassium 4.2 Chloride 102 Carbon Dioxide 29 BUN 31 H Creatinine 1.27 H Estimated GFR 56.2 L BUN/Creatinine Ratio 24.4 H Glucose 103 Hemoglobin A1c Calcium 10.1 Magnesium 2.3 Total Bilirubin 0.7 AST 61 H ALT 41 Alkaline Phosphatase 440 H Total Creatine Kinase 128 CK-MB (CK-2) 2.28 CK-MB (CK-2) Rel Index 1.8 Troponin I < 0.012 Total Protein 8.6 H Albumin 4.4 Globulin 4.2 H Albumin/Globulin Ratio 1.0 Triglycerides Cholesterol LDL Cholesterol, Calc HDL Cholesterol Lipase 104 SARS-CoV-2 (PCR) 09/02/21 09/03/21 09/03/21 16:24 05:30 05:30 WBC 6.5 RBC 3.83 L Hgb 11.8 L Hct 35.8 L MCV 93.6 MCH 30.9 MCHC 33.0 RDW 16.5 H Plt Count 257 Neut % (Auto) 45.8 L Lymph % (Auto) 26.6 [place] % (Auto) 8.9 Eos % (Auto) 16.6 H Baso % (Auto) 2.1 H Neut # (Auto) 3000 Lymph # (Auto) 1700 [place] # (Auto) 600 Eos # (Auto) 1100 H Baso # (Auto) 100 PT INR APTT Sodium 135 L Potassium 4.0 Chloride 105 Carbon Dioxide 25 BUN 30 H Creatinine 1.18 Estimated GFR > 60.0 BUN/Creatinine Ratio 25.4 H Glucose 87 Hemoglobin A1c Calcium 9.6 Magnesium Total Bilirubin AST ALT Alkaline Phosphatase Total Creatine Kinase CK-MB (CK-2) CK-MB (CK-2) Rel Index Troponin I Total Protein Albumin Globulin Albumin/Globulin Ratio Triglycerides 134 Cholesterol 224 H LDL Cholesterol, Calc 142 H HDL Cholesterol 55 Lipase SARS-CoV-2 (PCR) Negative 09/03/21 05:30 WBC RBC Hgb Hct MCV MCH MCHC RDW Plt Count Neut % (Auto) Lymph % (Auto) [place] % (Auto) Eos % (Auto) Baso % (Auto) Neut # (Auto) Lymph # (Auto) [place] # (Auto) Eos # (Auto) Baso # (Auto) PT INR APTT Sodium Potassium Chloride Carbon Dioxide BUN Creatinine Estimated GFR BUN/Creatinine Ratio Glucose Hemoglobin A1c 5.4 Calcium Magnesium Total Bilirubin AST ALT Alkaline Phosphatase Total Creatine Kinase CK-MB (CK-2) CK-MB (CK-2) Rel Index Troponin I Total Protein Albumin Globulin Albumin/Globulin Ratio Triglycerides Cholesterol LDL Cholesterol, Calc HDL Cholesterol Lipase SARS-CoV-2 (PCR) PFSH Medical History Hypertension Social History household members: children Smoking Status: Current every day smoker alcohol intake: never Assessment & Plan Assessment & Plan narrative: Mr. Cotter is a 71M with PMH CVA, CAD s/p stents, HTN, HL admitted with CVA. 1. CVA, present on admission -CT head and CT angio head/neck show no acute process, MRI showed subacute infarct on the R corresponding with his L sided symptoms. -symptoms had been occurring for days, patient is well outside window for TPA -patient takes aspirin at home, will continue -add plavix and high dose statin -NIH qshift. -lipid control suboptimal with LDL 142, A1c unremarkable. -ordered PT/OT and speech therapy -TTE unremarkable, no shunting. Continue telemetery for possibility of afib. Can likely discontinue telemetery tomorrow. 2. History of CVA -continue aspirin, statin 3. History of CAD s/p stents -continue aspirin, statin 4. Hypertensive urgency -resume home antihypertensives today. 5. Elevated creatinine -on admit creatinine of 1.27 -last checked in September 2020 was 1.57 -probable CKD stage 2 -monitor creatinine closely 5. Hyperlipidemia -continue statin 6. GERD -continue ppi 7. Depression -continue sertraline CODE: DNR Proxy: Wander Cotter mike Dispo: pending PT/OT evaluations, possible acute rehab, SNF, or home with home health. Time Spent With Patient Critical Care time: I spent a total of [] minutes of critical care time on this patient's care today; this time is exclusive of procedural time.
--- NOTE | 2021-09-03 11:13 | ST.IPIE ---
Visit Care Team Role Provider Type Charity Georges MD Primary Care Provider Physician Specialty: Internal Medicine Address: [address] [place] [address], [address] Email: [email or web address] Abdon Conroy DO Emergency Provider Physician Referring Provider Specialty: Emergency Medicine Address: [address] [place] [address], [address] Email: [email or web address] Noah Burch MD Admit Provider Physician Attending Provider Specialty: Hospitalist Address: [address] [place] [address], [id number] Fax: Email: [email or web address] Past Medical History (Last Reviewed 09/02/21 @ 18:49 by Abdon Conroy DO) Hypertension (Medical) ST IP Initial Evaluation Report [employer] Clinical Swallow Evaluation Start: 09/03/21 10:37 Freq: Status: Active Protocol: Document 09/03/21 10:37 [facility] (Rec: 09/03/21 11:13 [id number]) Clinical Swallow Evaluation Session Time Visit Start Time 09:10 Visit Stop Time 09:35 Total Visit Minutes 25 Setting Assessment Location Acute Care Visit Type Note Type Initial evaluation Patient Information Identification Type Name,Wristband History Mr. Cotter is a 71 year old male with PMH CVA, CAD s/p stents, HTN, HL who presents with worsening left sided weakness and numbness concering for possible CVA. CT results noted no acute intracranial disease process. MRI indicated a subacute infarction seen involving the deep white matter of the right frontal lobe. Subjective Observations Pt was in bed with PT. Pt appeared to be emotionally labile. Reported by Patient Current Diet Regular,Thin liquids Objective Assessment Mental Status Responsive,Cooperative Oral Integrity WFL Lip Function Within normal limits Pucker Within normal limits Lip Retraction Within normal limits Tongue Function Within normal limits Observations of Tongue at Rest Within normal limits Tongue Protrusion Within normal limits Tongue Retraction Within normal limits Tongue Lateralization Within normal limits Jaw Function Within normal limits Observations of Hard/Soft Palate Within normal limits Comment Pt is edentulous. he said his dentures were at home; however he usually doesn't wear the. He stated that he squishes foods against the roof of his mouth or gums the food until he can swallow it. Food and Liquid Trials Position During Assessment Slightly reclined Liquids Trialed Thin Solids Trialed Puree,Dysphagia Mechanical, Mechanical Soft Administration Type Cup single sip,Cup consecutive sips,Self-feeding Oral Phase Comments The primary area concern for the oral phase was mastication without teeth. Pt states he can eat just fine without his teeth. All structures and function were WFL for strength and ROM Pharyngeal Impairment Within functional limits Pharyngeal Phase Comments Good hyolaryngeal elevation with prompt swallow. Pt did not demonstrate wet voicing or cough/choke when eating drinking during assessment. Regular texture foods were not trialed secondary to lack of teeth/dentures. A soft diet is recommended as safest texture . Fatigue/Endurance Mild fatigue [place] Swallow Protocol No Results Pt presented with swallowing WFL. Pt is edentulous and a soft diet is recommended for ease of chewing. If pt's dentures are brought in by family, reassessment of mastication and swallowing is recommended. Thin liquids and diced pears were tolerated without s/sx aspiration. Silent aspiration cannot be ruled out. Instrumental assessment would be necessary to observe pharyngeal swallow. Clinical assessment does not indicate a need for further evaluation at this time. Screening observation of language and speech indicated no overt s/sx of dysarthria or aphasia, Cognition appears to be intact per conversation with the pt, observation of pt with PT activity and nursing report. Findings Swallowing Function Within functional limits Swallowing Function Comments Recommend soft diet for ease of mastication without teeth or dentures. Severity of Swallow Impairment Within functional limits Contributing Factors to Swallow Mastication inefficiency Impairment Comment Nursing reported that pt is eating small amounts of food during meals. Impact on Safety and Functioning Risk for aspiration Recommendations Instrumental Assessment No Swallowing Treatment Yes Frequency F/U x1-2 for monitoring safety with current diet. Recommended Solids Dysphagia Mechanical Recommended Liquids Thin Other Recommendations Meds as tolerated Safety Precautions/Swallowing 1 to 1 distant supervision, Recommendations Upright position at least 30 minutes after meals,Set-up assistance,Family assistance/ supervision,Check for pocketing Medication Recommendations As Tolerated Discharge Recommendations senior care facility,Home with Home Health Education Patient/Caregiver Education Described results of evaluation,Patient expressed understanding of evaluation, Patient expressed agreement with goals & treatment plans Goals Short-term Goals Pt will safely tolerate the least restrictive diet to meet hydration and nutritional needs without s/sx aspiration.
[2021-09-03] MEDS: SERTRALINE 50 MG TABLET PO (12:14)
[2021-09-03] MEDS: METOPROLOL ER 50 MG TABLET PO (12:14)
--- NOTE | 2021-09-03 12:42 | PT.IIE ---
Medical History (Last Reviewed 09/02/21 @ 18:49 by Abdon Conroy DO) Hypertension Physical Therapy Inpatient Evaluation/Re-Eval M1 PT/OT-IP Prior Functional Status Start: 09/03/21 09:37 Freq: NEEDED Status: Active Protocol: Document 09/03/21 10:35 [facility] (Rec: 09/03/21 11:47 [facility] [id number]) Medical Review Prior Functional Status Medical History Reviewed Yes Mobility and Gait Gareth was living in his son's basement. He reports he was mostly just lying in bed. He does have a 4WW. He reports he needed the assistance of his son for all ADLs. No stairs to enter. His son does work, but pt reports DIL would be available If I yelled Activities of Daily Living and IADL's Pt states prior to two weeks ago able to do all his ADL need and able to walk with his 4ww on his own. Social History Household Members children Living Arrangements House Number of Floors (Floors) Two Floors Number of Stairs To Enter/Railing? 0 Home Environment Standard Height Toilet,Tub/ Shower Home Equipment Four Wheel Walker,Shower Seat with Backrest,Hand Held Shower Employment Status Retired M2 PT-IP Current Condition Start: 09/03/21 09:37 Freq: NEEDED Status: Active Protocol: Document 09/03/21 09:38 AMB (Rec: 09/03/21 09:45 AMB [id number]) Physical Therapy Current Condition Current Condition Evaluation Date 09/03/21 Treatment Diagnosis CVA Onset Date 09/02/21 M3 PT-IP Subjective Start: 09/03/21 09:37 Freq: NEEDED Status: Active Protocol: Document 09/03/21 09:38 AMB (Rec: 09/03/21 09:45 AMB [id number]) Subjective Physical Therapy Visit Type Type Initial Evaluation Visit Start Time 09:00 Visit Stop Time 09:35 Total Visit Minutes 35 Physical Therapy Visit Comments Patient Comments Pt states he is cold. He is willing to try to get up. Don't let me fall Therapy Pain Assessment Pain When Pain Assessed During Mobility Pain Present Pain Present Denied Pain M4 PT-IP Mobility and Gait Start: 09/03/21 09:37 Freq: NEEDED Status: Active Protocol: Document 09/03/21 09:38 AMB (Rec: 09/03/21 09:45 AMB [id number]) PT-Bed Mobility Assessment Rolling Type of Rolling Roll to Left Level of Assist Minimal Assistance Supine to Sit Supine to Sit Minimal Assistance Scooting Scooting to Edge of Bed Standby Assistance PT-Transfer Assessment Sit to and From Stand Sit to and from Stand Minimal Assistance,1 Person Assistance Equipment Transfer Assistive Device Front Wheeled Walker Transfers Transfer Destination Chair Transfer Technique Stand Step Pivot Transfer Ability Level of Assist Minimal Assistance Comments Mobility Comments Gareth became tearful stating that the leg doesn't move but was able to move LLE with heavy cues. Needed Carlin for mobility as above, did require R UE against bed for seated balance. Pt quite nervous with moving from sit to stand, felt dizzy upon standing. Blood pressure was high throughout treatment: 175/77 in supine before movement, 172 /100 upon standing, 181/60 when seated in chair after gait. Gait Assessment Gait Gait Assistance Required: Moderate Assistance,1 Person Assist Distance (Feet) 5 Assistive Devices Assistive Device Front Wheeled Walker Gait Deviations General Gait Pattern Decreased Stride Length,Step- to Gait Factors Limiting Gait Function Factors Limiting Gait Function Decreased Activity Tolerance, Decreased Sensation,Decreased Strength,Poor Balance,Poor Safety Awareness Comments Gait Comments Pt with difficulty weightbearing through the L LE , but was able to weightbear through the R LE on the FWW. Needed assist with walker to turn and to walk backwards, was able to walk forward and move the walker with more Carlin , turning walking backwards ModA. Pt left in recliner with Speech therapist, discussed BP and pt case with RN and DYE HOUSE HELPER. PT-Balance Assessment Sitting Balance and Reactions Static Sitting Balance Ability Fair Dynamic Sitting Balance Ability Poor Standing Balance and Reactions Static Standing Balance Ability Poor Dynamic Standing Balance Ability Poor Device Used FWW M5 PT-IP Objective Assessments Start: 09/03/21 09:37 Freq: NEEDED Status: Active Protocol: Document 09/03/21 09:38 AMB (Rec: 09/03/21 12:42 AMB [id number]) Gross Range of Motion Upper Extremity ROM Assessment Within Functional Limits Lower Extremity ROM Assessment Within Functional Limits Strength Upper Extremity Strength Assessment Within Functional Limits Lower Extremity Strength Assessment Left Impaired Hip 3- Knee 3- Ankle 2 Coordination Assessment Gross Coordination Gross Coordination Impaired Assessment Heel on Lovett Test Moderate Impairment Sensation Assessment Sensation Gross Sensation Left LE Impaired Light Touch Impaired Sensation Description Numbness M6 PT-IP Treatment Start: 09/03/21 09:37 Freq: NEEDED Status: Active Protocol: Document 09/03/21 09:38 AMB (Rec: 09/03/21 12:42 AMB [id number]) Physical Therapy Treatment Education Education Provided Safety M7 PT-IP Assessment and Plan Start: 09/03/21 09:37 Freq: NEEDED Status: Active Protocol: Document 09/03/21 09:38 AMB (Rec: 09/03/21 12:42 AMB [id number]) PT Summary Assessment and Plan Potential Rehabilitation Potential Fair Status of Condition at Evaluation Evolving Summary Impairments Strength,Balance,Coordination, Sensation,Bed Mobility, Transfers,Gait,Activity Tolerance Assessment Summary Gareth was brought to the ER by his son for L sided weakness. Per admitting nurse, Gareth had stopped taking his medication about a month ago and had an appointment with hospice that was scheduled for today. He was quite emotionally labile during PT. He has had one recent fall at home due to the left sided weakness, although it does not sound like he was getting up much at his baseline. He required Min/ModA for all mobility gait/ only tolerating ambulating 5 feet at eval. He is fearful of falling due to his left leg weakness. Given his weakness and gait impairments, normally SNF placement would be recommended . However if pt was planning to go to hospice, could consider speaking with family and deciding if home with family and hospice could meet his needs. He would need [address] Goals Bed Mobility Goal Standby Assistance Transfer Goal Contact Guard Assistance Gait Goal Minimal Assistance,Front Wheel Walker Gait Distance 40' Days to Meet Goals 5 Frequency of Treatment Frequency Of Treatment Once a Day Treatment Plan Physical Therapy Treatment Plan Bed Mobility Training,Transfer Training,Gait Training, Therapeutic Exercise,Balance Retraining,Discharge Planning, Neuromuscular Re-ed Recommendations To Nursing Amount of Assist Needed 2 Person Assist Discharge Recommendations PT Discharge Recommendations Home vs SNF Other Discharge Recommendations Home with hospice care? vs SNF rehab Equipment Needed for Home Before FWW (pt has 4WW) Discharge Transportation Needs at Discharge Wheelchair/Cabulance
--- NOTE | 2021-09-03 14:25 | CM.DANOTE ---
Discharge Assessment Note: Patient is 71yo Male admitted for CVA, left sided weakness with elevated creatinine, hyperlipidemia. History of CVA, CAD, Hypertensive urgency, GERD, and depression. Patient assigned to hospitalist team. PT/OT/ST evaluations completed recommending SNF 02/02 caregiver available. Patient had a hospice intake appointment set for 09/03 that did not occur due to admission; patient and patient's son opting for patient to have rehab in order to regain mobility and independence with ADLs that patient reports he had only two weeks prior to admission. Patient resides with son and [id number] in the basement of son's home; he recently moved in. Patient has 4WW available for personal use as needed. Patient is currently total assist for ADLs. INS: [employer] PCP:Charity Georges Plan: Patient prefers discharge to SNF for rehab and cancel hospice plans. Care management will continue to follow throughout clinical course of admission for discharge planning needs. [facility]. Vaccine record needed. Dez COOPER Discharge Planning/Care Management CM Discharge Assessment Start: 09/03/21 14:00 Freq: Status: Active Protocol: Document 09/03/21 14:00 AIDE (Rec: 09/03/21 14:12 AIDE [id number]) Discharge Planning Assessment Assigned Bicycle Rental Clerk Dez COOPER DPOA/Assigned Designee Name Ryne Viramontes Contact Information [phone] Advance Directives? Yes: DNR History Provided By Patient,Family Member,Medical Record Has Patient been admitted in last 30 No days? Prior Living Arrangements House Comment in son's basement Household Members children Comment son and DIL Type of transporation used prior to Relies on Others admit Independent with ADL's No Is patient alert and oriented? Yes Needs Assistance With Bathing,Grooming,Meal Prep, Toileting,Managing Medications ,Home Chores / Shopping Caregiver for Another No DME Already Rented / Owned FWW / Walker Patient/Family Preference Halfway Facility Barriers to Discharge No Discharge Plan Halfway Facility Transportation Arrangement TBD Referrals Initiated Halfway If patient plan is home with home health No : Has signed face to face form been completed? If patient plan is SNF: Has PASSR been No completed? Medicare Choice List Provided Yes SNF/HH Preference TBD Has Agency SNF been contacted Yes Whiteboard Updated in Patient Room with Yes name and ext. # of Bicycle Rental Clerk Review Status In Process Next Review Type Continued Stay Review
--- NOTE | 2021-09-03 14:39 | CM.DPNOTE ---
Addendum entered by Gabriela Lee 09/03/21 15:09: Also emailed [facility] at [place] to Lucía (per [place]). Received confirm. Gabriela Lee CM Assist. Original Note: Emailed snf referral packet (per [place]) to [facility] and received confirm. Gabriela Lee CM Assist.
--- NOTE | 2021-09-03 18:02 | DI.MRI.S_ITS ---
PROCEDURE: MR HEAD/BRAIN WO CON INDICATIONS: cva? TECHNIQUE: Non-contrast axial T1 spin echo, axial T2 fast spin echo, sagittal and axial FLAIR, coronal T2 fast spin echo, axial gradient echo, axial diffusion and ADC through the brain. COMPARISON: [facility], CT, CT ANGIO HEAD AND NECK, 09/02/2021, 15:50. [facility], CT, CT STROKE, 09/02/2021, 15:50. FINDINGS: Image quality: Excellent. CSF spaces: Ventricles appear symmetric in size and shape. Basal cisterns are patent. No extra-axial fluid collections. Brain: Within the deep white matter of the right frontal lobe, there are areas of abnormal diffusion-weighted signal, with associated dark signal on the ADC map. Developing T2 weighted signal can be seen at these sites. No findings of hemorrhage can be seen at this site. No intracranial bleeds or mass effects. There is cerebral volume loss for age. There are periventricular and deep white matter chronic small vessel ischemic changes. Brainstem appears normal. No chronic ischemic insults. Normal intravascular flow voids are present. Skull and face: Calvarial bone marrow is normal in signal. Orbits are normal. Sinuses: The left maxillary sinus is completely opacified as well as the left frontal sinus. There is opacification seen of the anterior left ethmoid air cells. Moderate mucosal thickening is seen within the sphenoid sinuses. Mild mucosal thickening is seen elsewhere. There is a mild amount of fluid is seen within the mastoid air cells. IMPRESSION: Foci of subacute infarction seen involving the deep white matter of the right frontal lobe. Paranasal sinus disease, worse on the left. Note is made of age-appropriate brain parenchymal volume loss and chronic small vessel ischemic changes. Dictated by: Josemanuel Savage M.D. on 09/03/2021 at 7:50 Approved by: Josemanuel Savage M.D. on 09/03/2021 at 7:55
[2021-09-03] MEDS: PANTOPRAZOLE DR 40 MG TABLET PO (18:17)
[2021-09-03] MEDS: CALCIUM CARBONATE 500 MG TAB 1000 MG PO (18:17)
[2021-09-03] MEDS: ATORVASTATIN 20 MG TABLET 80 MG PO (20:39)
[2021-09-03] MEDS: ZOLPIDEM 5 MG TABLET PO (20:39)
[2021-09-03] MEDS: MAG HYDROX/ALUMINUM/SIMETH SUS 20 ML, LIDOCAINE VISCOUS 2% 15 ML PO (20:39)
[2021-09-04] VITALS (16 sets, daily range): BP systolic 138–177; BP diastolic 78–89; PULSE 54–59; RESP 16–18; TEMP 36.1–37.2; O2SAT 94–99
[2021-09-04] MEDS: KETOROLAC 10 MG TABLET PO (00:42)
[2021-09-04] MEDS: BISACODYL 10 MG SUPP PR (02:26)
[2021-09-04] MEDS: LEVOTHYROXINE 125 MCG TABLET PO (06:42)
[2021-09-04] MEDS: CLOPIDOGREL 75 MG TABLET PO (09:31)
[2021-09-04] MEDS: SENNOSIDES 8.6 MG TABLET 17.2 MG PO ×2 (09:32→20:14)
[2021-09-04] MEDS: ASPIRIN EC 81 MG TABLET PO (09:32)
[2021-09-04] MEDS: SERTRALINE 50 MG TABLET PO (09:32)
[2021-09-04] MEDS: METOPROLOL ER 50 MG TABLET PO (09:32)
[2021-09-04] MEDS: PANTOPRAZOLE DR 40 MG TABLET PO (09:33)
[2021-09-04] MEDS: ENOXAPARIN 40 MG/0.4 ML SYRINGE SUBCUT (09:33)
[2021-09-04] MEDS: SODIUM CHLORIDE 0.9% FLUSH 10 ML IV ×2 (09:33→20:15)
--- NOTE | 2021-09-04 09:35 | DIET.CONS ---
Dietary Consultation Note Admission Date: 09/02/2021 17:20 Assessment: 71y M admitted for subacute infarct referred to nutrition for malnutrition screening and reported severe weight loss. Pt MNA 5 indicating malnutrition with 16% weight loss in 2mo (severe), BMI 18.4 (severe for age). Pts average body weight 150#. Pt moved in with sons (back and forth between homes) 1.5y ago. Most recently pt living in trailer smoking 2ppd cigarettes. Rd spoke with pts son who reports pt moved in with him 2w ago but was mostly refusing to eat (failure to thrive). Pt receives three healthy meals per day from son B: eggs, toast, banana L: sandwich, yogurt, juice D: family pasta meal. Per pts son, pt eats a bite or two and stops, reduced desire to eat. During this hospitalization pt eating well, 50-100%. Ht: 172.72 cm Wt: 55 kg BMI: 18.4 (severe for age) UBW: 68kg (-16% in 2mo, severe) Last BM: 09/04/21 (09/04/21 02:46) MNA: 5 Mariano Score: 18 Diet: 09/03/21 Breakfast Heart Healthy Diet Diet Modifications: 09/03/21 Lunch Easy to Chew/IDDSI7 Diet Diet Modifications: Nutrition Percent Meal Consumed 85 09/04/21 09:33 Percent Meal Consumed 100% 09/03/21 17:43 Percent Meal Consumed 50% 09/03/21 13:00 Percent Meal Consumed 90 09/03/21 09:00 Labs: RBC 3.83 X10^6/uL (4.5-5.9) L 09/03/21 05:30 Hgb 11.8 g/dL (13.5-17.5) L 09/03/21 05:30 Hct 35.8 % (41-53) L 09/03/21 05:30 Creatinine 1.18 mg/dL (0.66-1.25) 09/03/21 05:30 Hemoglobin A1c 5.4 % (4.0-6.0) 09/03/21 05:30 Nutrition Diagnosis: Severe Acute PCM related to adult failure to thrive, low desire to eat aeb 16% weight loss in 2mo (severe), BMI 18.4 (severe for age), pt taking one or two bites of meals despite healthy options. Interventions: 1. Recc increasing family social eating to spur appetite. 2. Recc ONS Ensure for any meal where POs <50% EER: 1900kcals (35kcal/kg), 75g PRO (1.3g/kg) Monitoring/Evaluations: POs Electronically Signed by: Judy Mukherjee 09/04/21 09:35 Clinical Dietitian [address] [address]
--- NOTE | 2021-09-04 10:17 | OT.IP.TRT ---
Current Diagnoses Cerebral infarction, unspecified (09/02/21) Occupational Therapy Treatment Note M2 OT-IP Current Condition Start: 09/03/21 11:31 Freq: Status: Active Protocol: Document 09/03/21 10:35 [facility] (Rec: 09/03/21 11:47 [facility] [id number]) Occupational Therapy Current Condition Current Condition Evaluation Date 09/03/21 Treatment Diagnosis CVA, decreased mobility Diagnosis Onset Date 09/02/21 M3 OT- IP Subjective and Pain Start: 09/03/21 11:31 Freq: Status: Active Protocol: Document 09/04/21 09:44 [facility] (Rec: 09/04/21 11:55 [facility] [id number]) OT- Subjective Occupational Therapy Visit Type Type Treatment Note Visit Start Time 09:44 Visit Stop Time 10:17 Total Visit Minutes 33 Occupational Therapy Visit Comments Patient Comments Pt agreed to get up for OT and do grooming at the sink. Patient/Caregiver Goals Pt open and motivated to go to acute rehab. OT Pain Assessment Pain When Pain Assessed At Rest Pain Present Pain Present Denied Pain M4 OT- IP ADL's Start: 09/03/21 11:31 Freq: Status: Active Protocol: Document 09/04/21 09:44 [facility] (Rec: 09/04/21 11:55 [facility] [id number]) OT [id number] Comments OT Self-Feeding Comments Not at meal time. OT ADL-Grooming Comments OT Grooming Comments Pt able to use left UE better today to assist with set-up for grooming needs today while seated in the recliner in front of the sink. OT ADL-Oral Care General Eval Oral Care Ability Independent OT ADL-Dressing General Eval Lower Body Dressing Ability Maximum Assistance Comments OT Dressing Comments Due to poor sitting balance unable to do LB dressing needs and max for socks and brief management needs. OT ADL-Toileting General Evaluation Toileting Ability Maximum Assistance Areas Needing Assistance Manage Clothing Comments OT Toileting Comments OT having to assist pt with brief change . OT ADL-Bathing Comments OT Bathing Comments Sponge bath more appropriate due to decreased dynamic siting balance needs. M5 OT- IP IADL's Start: 09/03/21 11:31 Freq: Status: Active Protocol: Document 09/03/21 10:35 [facility] (Rec: 09/03/21 11:47 [facility] [id number]) OT-Instrumental Activities of Daily Living Medication Management Medication Management Caregiver Administers Money Management Money Management Caregiver Provides Assistance Meal Preparation Meal Preparation Caregiver Provides Assist Group Sales Representative Group Sales Representative Caregiver Provides Assist M6 OT- IP Functional Cognition Start: 09/03/21 11:31 Freq: Status: Active Protocol: Document 09/04/21 09:44 [facility] (Rec: 09/04/21 11:55 [facility] [id number]) Cognitive Factors Limiting Selfcare Function Cognitive Comments Cognitive Assessment Comments Pt is cooperative, motivated ,able to follow commands for ADl and mobility needs today. OT- Vision and Hearing OT- Vision Assessment Vision Assessment Comments Pt able to read the clock accurately today. M7 OT- IP Mobility and Balance Start: 09/03/21 11:31 Freq: Status: Active Protocol: Document 09/04/21 09:44 [facility] (Rec: 09/04/21 11:55 [facility] [id number]) OT- Bed Mobility Assessment Rolling Type of Rolling Roll to Right Level of Assistance Minimal Assistance Supine to Sit Supine to Sit Assist Moderate Assistance,1 Person Assistance Scooting Scooting to Edge of Bed Contact Guard Assistance OT-Transfer Assessment Sit to and From Stand Sit to and from Stand Moderate Assistance,Maximum Assistance Transfers Transfer Ability Maximum Assistance Technique Transfer Destination Bed,Chair Transfer Technique Stand Step Pivot Devices Transfer Assistive Devices Gait Belt,Front Wheeled Walker Comments Mobility Comments Pt still needing MODA to assist to get his trunk upright from sidelying. MODA/MAX A to stand to FWW and MAX A with FWW to transfer to the recliner. Pt's LLE tends to buckle and needing to be blocked, in addition assist to guide the FWW and for his balance. OT- Gait Assessment Comments Gait Ability Comments Transfer only at this time. OT- Balance Assessment Sitting Balance and Reactions Static Sitting Balance Ability Poor Dynamic Sitting Balance Ability Poor Standing Balance and Reactions Static Standing Balance Ability Poor Dynamic Standing Balance Ability Poor Comments Other Balance Tests/Deviations/Treatment Pt needing from CGA to MODA x1 : for sitting balance at the edge of the bed. Pt has decreased trunk control at this time. M8 OT- IP Objective Assessments Start: 09/03/21 11:31 Freq: Status: Active Protocol: Document 09/03/21 10:35 [facility] (Rec: 09/03/21 11:47 [facility] [id number]) OT Gross Range of Motion Upper Extremity Range of Motion Assessment Within Functional Limits OT Strength Comments Strength Comments RUE 5/5, LUE 4-/5 to 45 OT- Coordination Assessment Upper Extremity Finger to Nose Test Left UE Impaired OT Sensation Assessment Comments Summary Comments Pt states on 09/04 that numbness in left hand has improved M9 OT- IP Assessment and Plan Start: 09/03/21 11:31 Freq: Status: Active Protocol: Document 09/04/21 09:44 [facility] (Rec: 09/04/21 11:55 [facility] [id number]) OT Summary Assessment and Plan Potential Rehabilitation Potential Good Analytic Complexity at Evaluation Moderate Summary OT Impairments Strength,Balance,Coordination, Sensation,Functional Cognition ,Functional Mobility,Self- Feeding,Grooming,Dressing, Toileting,Bathing,Toilet Transfers,Shower Transfers, Activity Tolerance Progress Towards Goals Progressing Toward Goals Assessment Summary Pt is very motivated to get better and willing to do acute rehab. Noted better control of his LUE today to be able to assist with grooming needs. Pt main barriers is decreased trunk control and balance and therefore needing extensive assist for all ADl and mobility needs at this time. Pending continued progress and activity tolerance, pt would be a good candidate for acute rehab. Goals Self-Feeding Goal Independent Grooming Goal Independent Dressing Goal Independent Toileting Goal Independent Bathing Goal Standby Assistance Toilet Transfer Goal Independent Shower Transfer Goal Independent Patient/Caregiver Education Goal Caregiver Independent Assisting Patient Days to Meet Goals 25 Frequency of Treatment Frequency Of Treatment Once a Day Treatment Plan OT Treatment Plan ADL Training,Functional Cognition Training,Functional Mobility,Patient/Family Education,Discharge Planning Other Treatment Recommendations and Next Sit at edge of the bed with Treatment Focus SBA for grooming and oral care needs to help improve trunk control Discharge Recommendations OT Discharge Recommendations SNF Rehab,Acute Rehab,SNF vs Acute Rehab Transportation Needs at Discharge Wheelchair/Cabulance
--- NOTE | 2021-09-04 10:18 | SLP.IPNOTE ---
Attempted to see pt at 9:45 to follow up with new diet order. Pt was with OT. Per NSG, pt has dentures but no denture paste. She reported he ate a good amount of breakfast with no difficulty despite having no dentures in.
--- NOTE | 2021-09-04 11:11 | CM.DPC ---
Addendum entered by CHARITY Bradshaw 09/04/21 16:12: ADD: Sil called at 1600 and initiated [employer] auth just now and will meet bedside with pt in the AM to make final confirmation that pt on board with d/c plan. BF Addendum entered by CHARITY Bradshaw 09/04/21 14:31: ADD: Per Sil at [facility], pt has been reviewed by the whole team except their Physician who is aware that reviewing is a priority but so far they feel pt is a good candidate and Sil already working on [employer] auth request to submit as soon as Physician reviews. Sil also called pt's son and confirmed good d/c plan and that son is agreeable and Sil plans to meet bedside with pt either this afternoon or tomorrow morning but they are moving forward with the plan of accepting pt once they get insurance auth. SW also received call back from Lucía at [facility] stating they could accept pt as well and would be happy to start auth but SW updated her that pt may be accepted at Acute Rehab and to hold off on submitting auth but to keep referral in case Acute Rehab falls through. SW also left msg for [facility] stating possible plan of Acute Rehab rather than SNF and requested they keep referral for now. Plan: SW to follow closely this afternoon for confirmation from [facility] Re[facility] that they can accept and have started auth. If Acute Rehab, need to coordinate transport with son's schedule. CHARITY Bradshaw Original Note: DCP SNF vs Acute Rehab planning Per MD, pt seems improved today but likely has vascular dementia with some mild cognitive impairment and reason for family looking into Hospice Info Visit is mostly pt's failure to thrive the last couple months with significant weight loss and remaining in bed mostly and could be contributed to beginning stages of dementia vs depression or both but no other significant medical dx for Hospice criteria at this time. SW called [facility] to inquire about their review and they could likely accept if pt is agreeable with not smoking and having nicotine patch and if pt and family understand that there could be a daily copay of around $180 starting on day 21 of SNF rehab and that they understand that if pt is not fully back to independent baseline by day 20 or when [employer] stops paying for SNF then family would have to pay for SNF or take pt home. SW also left ms for [facility] admissions inquiring about their review. JEOVANY spoke to pt bedside regarding above and pt still in agreement and wants rehab to strengthen before home and in agreement to not smoking. Pt agreeable with SW calling son Wander as well and SW called and updated him on above and he confirms that he is aware pt's cognition will likely continue to decline and he is aware and willing to hire in-home caregivers when needed and if needed would pay the SNF copay if pt not yet safe to d/c home. Son would like to proceed with rehab. Due to pt's subacute CVA dx for this admission, OT worked with pt again this morning and he improved in his ability to participate and feels pt could benefit from Acute Inpt Rehab and PT will also work with pt today with this understanding. JEOVANY called [facility] admissions Sil and confirmed they have openings and contracted with [employer] and willing to review and aware if they feel they could accept pt to start on auth right away otherwise SNF would need to start auth process today. RAMIN Ochoa kindly faxed new referral to [facility] to review. Plan: JEOVANY awaiting to hear back from [facility] to determine if pt meets criteria before calling [facility] to discuss if they should start [employer] auth process. Holley Roberts MSW
--- NOTE | 2021-09-04 11:13 | P.PN_ITS ---
Subjective Subjective Date Patient Seen: 09/04/21 Time Patient Seen: 11:14 Interval history: 71 year old male admitted with a stroke. MRI confirmed yesterday. Left sided weakness is improved today, overnight had some confusion and delirium, much improved today. Son states has had some progressive memory issues. Reports improved numbness today as well. Exam Vital Signs (past 8 hours): - 09/04/21 06:00 09/04/21 07:21 09/04/21 07:25 Temperature 98.8 F Pulse Rate 59 L Respiratory Rate 16 Blood Pressure 166/84 H Pulse Oximetry 95 97 97 09/04/21 09:32 09/04/21 10:00 Temperature Pulse Rate Respiratory Rate Blood Pressure 166/84 H Pulse Oximetry 97 Oxygen Delivery Method Room Air Oxygen Flow Rate 0 Narrative Exam Narrative: Exam Narrative: GEN: no acute distress, thin and chronically ill appearing. HEENT: moist mucous membranes, PERRL. NECK: trachea midline, no JVD PULM: clear bilaterally, no wheezes, rhonchi, rales ABD: soft, nontender, nondistended, no organomeagly, normal bowel sounds EXT: warm and well perfused with no edema SKIN: bruises on trunk, no rashes. NEURO: awake alert, speech clear, no facial droop, 5/5 strength hand skills trainer and left ankle today much improved, right side with normal strength. Reports subjective numbness on left upper and lower extremities. PSYCH: pleasant, appropriate affect Objective Labs Result Diagrams: 09/03/21 05:30 09/03/21 05:30 [facility] Medical History Hypertension Social History household members: children Smoking Status: Current every day smoker alcohol intake: never Assessment & Plan Assessment & Plan narrative: Mr. Cotter is a 71M with PMH CVA, CAD s/p stents, HTN, HL admitted with CVA. 1. CVA, present on admission -CT head and CT angio head/neck show no acute process, MRI showed subacute infarct on the R corresponding with his L sided symptoms. -symptoms had been occurring for days, patient is well outside window for TPA -patient takes aspirin at home, will continue -add plavix and high dose statin -NIH qshift. -lipid control suboptimal with LDL 142, A1c unremarkable. -ordered PT/OT and speech therapy -TTE unremarkable, no shunting. Can discontinue telemetry to reduce wires and hopefully improve hospital delirium, no events noted. 2. History of CVA -continue aspirin, statin 3. History of CAD s/p stents -continue aspirin, statin 4. Hypertensive urgency -resumed home antihypertensives today, probably will need to increase. 5. Elevated creatinine -on admit creatinine of 1.27 -last checked in September 2020 was 1.57 -probable CKD stage 2 -monitor creatinine closely 5. Hyperlipidemia -continue statin 6. GERD -continue ppi 7. Depression -continue sertraline 8. Severe acute protein calorie malnutrition - appreciate dietary recommendations and evaluation - continue supplements. - he appears more motivated here to eat than at home. - likely related to probable cognitive impairment and exacerbated by CVA 9. Likely cognitive impairment - continue OT - recommend neurology as an outpatient though likely vascular in nature given multiple CVAs. 10. Acute encephalopathy resolved - likely hosptial delirium, pulled at lines and wires overnight. - keep awake during the day, encourage sleep at night. Limit night interruptions. - no need for medications at this time but will continue to monitor CODE: DNR Proxy: mike Stuart Dispo: probable SNF. Time Spent With Patient Critical Care time: I spent a total of [] minutes of critical care time on this patient's care today; this time is exclusive of procedural time.
--- NOTE | 2021-09-04 11:33 | CM.DPNOTE ---
Faxed clinicals per Holley to [facility], and received fax conf. Gabriela Lee CM Assist.
--- NOTE | 2021-09-04 11:57 | PT-IP ANOTE ---
Pt eating breakfast initially when arrived 900am, COSTUME DIRECTOR discussed will come back late am, pt agreeable. Pt declined working with COSTUME DIRECTOR late am when arrived, stated just got back in bed and wanting a rest. Agreeable to return in early afternoon for PT tx. COSTUME DIRECTOR will continue to assess progress.
--- NOTE | 2021-09-04 13:56 | SLP.IPNOTE ---
Attempted to see pt at 13:40 for follow-up with new diet order. Pt was asleep and NSG reported he wanted to be left alone to sleep. NSG added pt was up all night last night and confusion this morning is likely due to fatigue. Per NSG, pt has dentures, though appears to be inconsistent about using them.
--- NOTE | 2021-09-04 15:30 | PT.IPTN ---
Current Diagnoses Cerebral infarction, unspecified (09/02/21) Physical Therapy Treatment Note M2 PT-IP Current Condition Start: 09/03/21 09:37 Freq: NEEDED Status: Active Protocol: Document 09/04/21 15:07 SP (Rec: 09/04/21 16:57 SP [id number]) Physical Therapy Current Condition Current Condition Evaluation Date 09/03/21 Treatment Diagnosis CVA Onset Date 09/02/21 M3 PT-IP Subjective Start: 09/03/21 09:37 Freq: NEEDED Status: Active Protocol: Document 09/04/21 15:07 SP (Rec: 09/04/21 16:57 SP [id number]) Subjective Physical Therapy Visit Type Type Treatment Note Visit Start Time 15:07 Visit Stop Time 15:30 Total Visit Minutes 23 Number of TRASH TRUCK DRIVER Visits 1 Physical Therapy Visit Comments Patient Comments Pt agreeable to working with therapy with encouragement. Therapy Pain Assessment Pain When Pain Assessed During Mobility Pain Present Pain Present Denied Pain M4 PT-IP Mobility and Gait Start: 09/03/21 09:37 Freq: NEEDED Status: Active Protocol: Document 09/04/21 15:07 SP (Rec: 09/04/21 16:57 SP [id number]) PT-Bed Mobility Assessment Supine to Sit Supine to Sit Contact Guard Assistance, Minimal Assistance,1 Person Assistance,Head of Bed Elevated,Bedrails Scooting Scooting to Edge of Bed Contact Guard Assistance PT-Transfer Assessment Sit to and From Stand Sit to and from Stand Moderate Assistance,1 Person Assistance,Use of Upper Extremities Equipment Transfer Assistive Device Gait Belt,Front Wheeled Walker Transfers Transfer Destination Chair,Bedside Commode Transfer Technique Stand Step Pivot Transfer Ability Level of Assist Moderate Assistance,Maximum Assistance,1 Person Assistance ,Use of Upper Extremities Comments Mobility Comments Pt inclined in bed when arrived, eating lunch. Pt able to perform LE exercises with cuing but initially stated unable to use LLE, pt perseverating on TV remote on/ off vs volume. Completed elevated supine>sit with cues for use of L bed rail and LE repositioning to EOB, CGA due to decreased trunk control side and retro LOB with BUE support recover. Pt is impulsive during Sit>stand and SPT using FWW Mod- Max A x1 support at trunk due to decrease LLE WB stability, required cued for quad facilitation and wt shift assist over R stance LE to allow LLE side and retro stepping bed>chair, Min cues for sequencing body & FWW repositioning and safety hand placement throughout tx. Mod- Max A for slow descent sit in chair, not consistant reaching back. Pt attempt to scoot back in chair using RLE and RUE but tends to push back throwing self back into chair. TRASH TRUCK DRIVER discussed noticed odor of BM and suggested use of BSC, pt agreeable to SPT chair> BSC Mod-Max A x1 w/ FWW improved slower pace stepping continued trunk wt shift to R for LLE foot clearance. TRASH TRUCK DRIVER able assist stationary stance via gait belt and assist brief mgt then Mod A slow descent BSC. Pt impulsive sitting on BSC confused stated trying to stand up from BSC but demonstrates difficulty scoot back on BSC making sure positioned over hole completely, TRASH TRUCK DRIVER reassured in positioned well. Sit> stand Mod A x1 w/ FWW support, TRASH TRUCK DRIVER assisted brief mgt on L while pt completed R with LUE on FWW . SPT R back to chair Mod-Max A x1. Pt reclined in chair with chair alarm donned, call light and all needs in reach before left. Gait Assessment Gait Gait Assistance Required: Moderate Assistance,Maximum Assistance,1 Person Assist Distance (Feet) 5 Assistive Devices Assistive Device Gait Belt,Front Wheeled Walker Orthotic/Prosthetic Devices or Brace: No Gait Deviations General Gait Pattern Antalgic,Decreased Stride Length,Decreased Feet Clearance,Lateral Trunk Lean, Step-to Gait Factors Limiting Gait Function Factors Limiting Gait Function Decreased Activity Tolerance, Decreased Sensation,Decreased Strength,Difficulty Following Directions,Poor Balance,Poor Safety Awareness Comments Gait Comments See mobility comments. PT-Balance Assessment Sitting Balance and Reactions Static Sitting Balance Ability Fair Dynamic Sitting Balance Ability Poor Standing Balance and Reactions Static Standing Balance Ability Poor Dynamic Standing Balance Ability Poor Device Used FWW M5 PT-IP Objective Assessments Start: 09/03/21 09:37 Freq: NEEDED Status: Active Protocol: Document 09/03/21 09:38 AMB (Rec: 09/03/21 12:42 AMB [id number]) Gross Range of Motion Upper Extremity ROM Assessment Within Functional Limits Lower Extremity ROM Assessment Within Functional Limits Strength Upper Extremity Strength Assessment Within Functional Limits Lower Extremity Strength Assessment Left Impaired Hip 3- Knee 3- Ankle 2 Coordination Assessment Gross Coordination Gross Coordination Impaired Assessment Heel on Lovett Test Moderate Impairment Sensation Assessment Sensation Gross Sensation Left LE Impaired Light Touch Impaired Sensation Description Numbness M6 PT-IP Treatment Start: 09/03/21 09:37 Freq: NEEDED Status: Active Protocol: Document 09/04/21 15:07 SP (Rec: 09/04/21 16:57 SP [id number]) Physical Therapy Treatment Exercises Exercises Heel Slides Education Education Provided Safety M7 PT-IP Assessment and Plan Start: 09/03/21 09:37 Freq: NEEDED Status: Active Protocol: Document 09/04/21 15:07 SP (Rec: 09/04/21 16:57 SP [id number]) PT Summary Assessment and Plan Potential Rehabilitation Potential Fair Status of Condition at Evaluation Evolving Summary Impairments Strength,Balance,Coordination, Sensation,Bed Mobility, Transfers,Gait,Activity Tolerance Progress Towards Goals Progressing Toward Goals,Slow Progress due to Activity Tolerance,Slow Progress - Other Assessment Summary Pt impulsive at times during standing and transfer mobility with FWW Max A x1 with support for wt shifting to R allow LLE foot clearance, tends to throw self scooting back in chair/ BSC. CG- Min A for bed mob. TRASH TRUCK DRIVER recommending 2 person for transfers with nursing for safety. Pt will require skilled services to improve strength and functional progress in mobility. Goals Bed Mobility Goal Standby Assistance Transfer Goal Contact Guard Assistance Gait Goal Minimal Assistance,Front Wheel Walker Gait Distance 40' Days to Meet Goals 5 Treatment Plan Physical Therapy Treatment Plan Bed Mobility Training,Transfer Training,Gait Training, Therapeutic Exercise,Balance Retraining,Discharge Planning, Neuromuscular Re-ed Other Recommendations and Next Treatment bed mob, transfers, gait if Focus able tolerate using FWW, Continue safety education. Recommendations To Nursing Amount of Assist Needed 2 Person Assist Discharge Recommendations PT Discharge Recommendations SNF Rehab,Acute Rehab,SNF vs Acute Rehab Equipment Needed for Home Before FWW due to pt unsafe to use Discharge 4WW. Transportation Needs at Discharge Wheelchair/Cabulance
--- NOTE | 2021-09-04 16:09 | ST.IPDYTX ---
Visit Care Team Role Provider Type Charity Georges MD Primary Care Provider Physician Specialty: Internal Medicine Address: [address] [place] [address], [id number] Email: [email or web address] Abdon Conroy DO Emergency Provider Physician Referring Provider Specialty: Emergency Medicine Address: [address] [place] [address], [address] Email: [email or web address] Admit Provider Physician Attending Provider Specialty: Hospitalist Address: [address] [place] [address], [phone] Fax: Email: [email or web address] LOOM STARTER Dysphagia Treatment LOOM STARTER Dysphagia Treatment Start: 09/03/21 10:37 Freq: Status: Active Protocol: Document 09/04/21 16:02 GREGORY (Rec: 09/04/21 16:09 ZS [id number]) Dysphagia Treatment Session Time Visit Start Time 15:45 Visit Stop Time 16:00 Total Visit Minutes 15 Setting Assessment Location Acute Care Visit Type Note Type Treatment Note Patient Information Identification Type Name,ID Wristband Subjective Observations Pt was seated upright in chair with dentures in and empty cup of pudding in front of him watching TV when LOOM STARTER arrived. He agreed to participate in PO trials to evaluate swallow with his dentures in. Treatment Solids Trialed Dysphagia Mechanical,Regular Administration Type Tea Spoon,Self-Feeding Oral Strategies Upright at 90 degrees, Controlled Bite/Sip Size Pharyngeal Strategies Sitting Upright (90 deg),Small Bites and Sips Treatment Activities PO trials of pudding with inessa crackers x1 and inessa cracker x1 with dentures in. Provided education regarding role of LOOM STARTER and evaluation process. Assessment Patient Response to Treatment Excellent Rehab Potential Excellent Assessment of Improvement Gareth chewed and swallowed both PO trials with no reported difficulty and no observed difficulty. Rotary chew WNL and no oral residue following PO trials. No overt signs or symptoms of aspiration observed. Discharging from speech therapy as Gareth is tolerating a regular diet and thin liquids with no overt signs or symptoms of aspiration. Diet Recommendations Recommendations Upgrade Diet Order Liquids Order Thin Diet Order Regular Medication Recommendations As Tolerated Aspiration Precautions Recommended Precautions Upright at 90 Degrees,Small Bites/Sips Treatment Plan Appropriate for Continued Therapy No Therapy Recommendations Discharging from speech therapy as Gareth is tolerating a regular diet and thin liquids with no overt signs or symptoms of aspiration. Dysphagia Goals 1. pt will safely tolerate least restrictive diet to meet nutrition and hydration needs .
[2021-09-04] MEDS: ATORVASTATIN 20 MG TABLET 80 MG PO (20:15)
[2021-09-04] MEDS: MELATONIN 3 MG TABLET 6 MG PO (20:15)
[2021-09-05] MEDS: LEVOTHYROXINE 125 MCG TABLET PO (05:50)
[2021-09-05 07:00] VITALS: BP 147/74; PULSE 49; RESP 16; TEMP 36.4; O2SAT 97
[2021-09-05 07:45] VITALS: O2SAT 97
[2021-09-05 09:05] VITALS: O2SAT 98
--- NOTE | 2021-09-05 09:34 | CM.DPC ---
Addendum entered by Emily Whitten R.N. 09/05/21 11:09: Mireya from [facility] called back and stated, she did get the [employer] authorization. She can accept patient today. Updated hospitalist, Dr. Fox, he will complete orders, and patient will get updated COVID test. Was able to get in contact with patient's son, Wander, who confirmed that he can poultry picker patient, but not until 1700. Confirmed with Mireya that she can accept patient later, but hopefully he can be there by 5:30. Updated son, he will try to get off work a little earlier. Updated nurse, Jaja, about poultry picker and COVID test. Mireya at [facility] indicated, she has already reviewed medication, and communicated with their pharmacy. Will still fax over medications to them as well. PASSR not needed. Original Note: DCP Cont: Mireya from [facility] came by the hospital and did bed assessment on patient. She indicated, she should be able to accept patient, just need to get [employer] auth. She indicated that she could possibly get today, but will update this business planner if she does, and can accept today. Confirmed, family now can transport there, the issue had been patient's not going there directly, going home first, and being around more people, which was a concern due to the COVID situation. P: DCP to continue to follow. Plan is for patient to go to [facility], as soon as [employer] auth is completed. Emily Whitten RN/Superintendent [employer]
[2021-09-05 09:56] VITALS: BP 147/74
[2021-09-05] MEDS: METOPROLOL ER 50 MG TABLET PO (09:56)
[2021-09-05] MEDS: SERTRALINE 50 MG TABLET PO (09:56)
[2021-09-05] MEDS: PANTOPRAZOLE DR 40 MG TABLET PO (09:56)
[2021-09-05] MEDS: ASPIRIN EC 81 MG TABLET PO (09:56)
[2021-09-05] MEDS: ENOXAPARIN 40 MG/0.4 ML SYRINGE SUBCUT (09:56)
[2021-09-05] MEDS: SENNOSIDES 8.6 MG TABLET 17.2 MG PO (09:56)
[2021-09-05] MEDS: SODIUM CHLORIDE 0.9% FLUSH 10 ML IV (09:57)
[2021-09-05] MEDS: CLOPIDOGREL 75 MG TABLET PO (09:57)
--- NOTE | 2021-09-05 10:01 | PT.IPTN ---
Current Diagnoses Cerebral infarction, unspecified (09/02/21) Physical Therapy Treatment Note M2 PT-IP Current Condition Start: 09/03/21 09:37 Freq: NEEDED Status: Active Protocol: Document 09/05/21 09:43 SP (Rec: 09/05/21 10:45 SP [id number]) Physical Therapy Current Condition Current Condition Evaluation Date 09/03/21 Treatment Diagnosis CVA Onset Date 09/02/21 M3 PT-IP Subjective Start: 09/03/21 09:37 Freq: NEEDED Status: Active Protocol: Document 09/05/21 09:43 SP (Rec: 09/05/21 10:45 SP [id number]) Subjective Physical Therapy Visit Type Type Treatment Note Visit Start Time 09:43 Visit Stop Time 10:01 Total Visit Minutes 18 Number of RADIATION THERAPY TECHNICIAN Visits 2 Physical Therapy Visit Comments Patient Comments Pt agreeable to working with therapy with less encouragement required. Therapy Pain Assessment Pain Present Pain Present Denied Pain M4 PT-IP Mobility and Gait Start: 09/03/21 09:37 Freq: NEEDED Status: Active Protocol: Document 09/05/21 09:43 SP (Rec: 09/05/21 10:45 SP [id number]) PT-Bed Mobility Assessment Supine to Sit Supine to Sit Moderate Assistance,1 Person Assistance,Head of Bed Elevated,Bedrails Sit to Supine Sit to Supine Minimal Assistance,1 Person Assistance,Bedrails Scooting Scooting to Edge of Bed Minimal Assistance PT-Transfer Assessment Sit to and From Stand Sit to and from Stand Moderate Assistance,1 Person Assistance,Use of Upper Extremities Equipment Transfer Assistive Device Gait Belt,Front Wheeled Walker Transfers Transfer Destination Chair Transfer Technique stand step pivot w/ FWW Transfer Ability Level of Assist Moderate Assistance,Maximum Assistance,1 Person Assistance ,Use of Upper Extremities Comments Mobility Comments Supine>sit from elevated bed 25 deg, contact cues for use of bed rail Mod A for trunk righting, min A for trunk support while scooting EOB. SIt>stand Mod A trunk stability, cued proper hand placement through out tx. SPT, wt shift support over RLE and cues LLE abd transfer to chair on L, mod A for FWW repositioning with therapist thighs, cued step back completely and reach back, Max A for descent to chair, pt forgets to use BUEs and flops into chair. Brief rest then requested to return to bed. STS, SPT bed Mod A throughout w/ FWW, stand> sit Mod A with reaching back w/ cues. Sit> supine with cues for use bed rail and body positioning Min A for LLE support into bed. Self centering with cues and bed rail assist. PRovided pt warm blanket, elevated HOB. Pt had call light and all needs in reach, bed alarmed. Nurse in room providing meds when left. Gait Assessment Gait Gait Assistance Required: Moderate Assistance,Maximum Assistance,1 Person Assist Distance (Feet) 5 Assistive Devices Assistive Device Gait Belt,Front Wheeled Walker Orthotic/Prosthetic Devices or Brace: No Gait Deviations General Gait Pattern Antalgic,Decreased Stride Length,Decreased Feet Clearance,Lateral Trunk Lean, Step-to Gait Factors Limiting Gait Function Factors Limiting Gait Function Decreased Activity Tolerance, Decreased Sensation,Decreased Strength,Difficulty Following Directions,Poor Balance,Poor Safety Awareness Comments Gait Comments See mobility comments. PT-Balance Assessment Sitting Balance and Reactions Static Sitting Balance Ability Fair Dynamic Sitting Balance Ability Poor Standing Balance and Reactions Static Standing Balance Ability Poor Dynamic Standing Balance Ability Poor Device Used FWW M5 PT-IP Objective Assessments Start: 09/03/21 09:37 Freq: NEEDED Status: Active Protocol: Document 09/03/21 09:38 AMB (Rec: 09/03/21 12:42 AMB [id number]) Gross Range of Motion Upper Extremity ROM Assessment Within Functional Limits Lower Extremity ROM Assessment Within Functional Limits Strength Upper Extremity Strength Assessment Within Functional Limits Lower Extremity Strength Assessment Left Impaired Hip 3- Knee 3- Ankle 2 Coordination Assessment Gross Coordination Gross Coordination Impaired Assessment Heel on Lovett Test Moderate Impairment Sensation Assessment Sensation Gross Sensation Left LE Impaired Light Touch Impaired Sensation Description Numbness M6 PT-IP Treatment Start: 09/03/21 09:37 Freq: NEEDED Status: Active Protocol: Document 09/05/21 09:43 SP (Rec: 09/05/21 10:45 SP [id number]) Physical Therapy Treatment Education Education Provided Safety M7 PT-IP Assessment and Plan Start: 09/03/21 09:37 Freq: NEEDED Status: Active Protocol: Document 09/05/21 09:43 SP (Rec: 09/05/21 10:45 SP [id number]) PT Summary Assessment and Plan Potential Rehabilitation Potential Fair Status of Condition at Evaluation Evolving Summary Impairments Strength,Balance,Coordination, Sensation,Bed Mobility, Transfers,Gait,Activity Tolerance Progress Towards Goals Progressing Toward Goals,Slow Progress due to Activity Tolerance,Slow Progress - Other Assessment Summary Pt improved slower pacing mobility, mostly carryover with cues for body positioning . Continues decreased safety with proper hand placement when sitting. Mod- Max A throughout all activity w/FWW, requries trunk wt shift to RLE to allow LLE repositioning . Pt would benefit from skilled services to progress strength, activity tolerance for functional independence in mobility. Goals Bed Mobility Goal Standby Assistance Transfer Goal Contact Guard Assistance Gait Goal Minimal Assistance,Front Wheel Walker Gait Distance 40' Days to Meet Goals 5 Frequency of Treatment Frequency Of Treatment Once a Day Treatment Plan Physical Therapy Treatment Plan Bed Mobility Training,Transfer Training,Gait Training, Therapeutic Exercise,Balance Retraining,Discharge Planning, Neuromuscular Re-ed Other Recommendations and Next Treatment bed mob, transfers, gait if Focus able tolerate using FWW, Continue safety education. Recommendations To Nursing Amount of Assist Needed 2 Person Assist Discharge Recommendations PT Discharge Recommendations SNF Rehab,Acute Rehab,SNF vs Acute Rehab Equipment Needed for Home Before FWW due to pt unsafe to use Discharge 4WW.
--- NOTE | 2021-09-05 11:19 | OT.IP.TRT ---
Current Diagnoses Cerebral infarction, unspecified (09/02/21) Occupational Therapy Treatment Note M2 OT-IP Current Condition Start: 09/03/21 11:31 Freq: Status: Active Protocol: Document 09/03/21 10:35 [facility] (Rec: 09/03/21 11:47 [facility] [id number]) Occupational Therapy Current Condition Current Condition Evaluation Date 09/03/21 Treatment Diagnosis CVA, decreased mobility Diagnosis Onset Date 09/02/21 M3 OT- IP Subjective and Pain Start: 09/03/21 11:31 Freq: Status: Active Protocol: Document 09/05/21 11:04 [facility] (Rec: 09/05/21 11:43 [facility] [id number]) OT- Subjective Occupational Therapy Visit Type Type Treatment Note Visit Start Time 11:04 Visit Stop Time 11:19 Total Visit Minutes 15 Occupational Therapy Visit Comments Patient Comments Went to see pt for OT and pt in the shower with nursing aid assisting. Patient/Caregiver Goals To get better. OT Pain Assessment Pain When Pain Assessed At Rest Pain Present Pain Present Denied Pain M4 OT- IP ADL's Start: 09/03/21 11:31 Freq: Status: Active Protocol: Document 09/05/21 11:04 [facility] (Rec: 09/05/21 11:43 [facility] [id number]) OT [id number] Comments OT Self-Feeding Comments Not at meal time. OT ADL-Grooming Comments OT Grooming Comments Not performed. OT ADL-Dressing General Eval Lower Body Dressing Ability Maximum Assistance Comments OT Dressing Comments Assist for socks and after threading brief over his feet able to bridge while in bed and pull up his brief over his hips. Pt needing cues to use his left hand as pt tends to neglect use of left hand at times and has decreased control of LUE as well. OT ADL-Bathing Bathing Type Bathing Type Shower General Evaluation Bathing Ability Moderate Assistance,Maximal Assistance Areas Needing Assistance Wash/Dry Back,Wash/Dry Perineal Area,Wash/Dry Lower Extremities Comments OT Bathing Comments Due to decreased sitting balance, pt heavily relying on grab bar for his balance. Pt needing extensive assist for showering needs. M5 OT- IP IADL's Start: 09/03/21 11:31 Freq: Status: Active Protocol: Document 09/03/21 10:35 [facility] (Rec: 09/03/21 11:47 [facility] [id number]) OT-Instrumental Activities of Daily Living Medication Management Medication Management Caregiver Administers Money Management Money Management Caregiver Provides Assistance Meal Preparation Meal Preparation Caregiver Provides Assist Sales Account Associate Sales Account Associate Caregiver Provides Assist M6 OT- IP Functional Cognition Start: 09/03/21 11:31 Freq: Status: Active Protocol: Document 09/05/21 11:04 [facility] (Rec: 09/05/21 11:43 [facility] [id number]) Cognitive Factors Limiting Selfcare Function Cognitive Comments Cognitive Assessment Comments Pt is cooperative, motivated and able to follow commands for ADl and mobility needs today. Pt needing encouragement at time and reminders to use his LUE. M7 OT- IP Mobility and Balance Start: 09/03/21 11:31 Freq: Status: Active Protocol: Document 09/05/21 11:04 [facility] (Rec: 09/05/21 11:43 [facility] [id number]) OT- Bed Mobility Assessment Supine to Sit Supine to Sit Assist Maximum Assistance,1 Person Assistance OT-Transfer Assessment Sit to and From Stand Sit to and from Stand Moderate Assistance,Maximum Assistance,1 Person Assistance Transfers Transfer Ability Moderate Assistance,2 Person Assistance Technique Transfer Destination Bed,Chair Transfer Technique Stand Step Pivot Devices Transfer Assistive Devices Gait Belt,Front Wheeled Walker Comments Mobility Comments MODA X 2 with fww , assist for balance, vc for weight shifting and to keep his LLE tightened when standing on it. Pt also needing assist to guide the FWW. OT- Balance Assessment Sitting Balance and Reactions Static Sitting Balance Ability Poor Dynamic Sitting Balance Ability Poor Standing Balance and Reactions Static Standing Balance Ability Poor Dynamic Standing Balance Ability Poor Comments Other Balance Tests/Deviations/Treatment Pt still having poor trunk : control and needing cues to use his trunk to sit upright. Pt tends to sit into posterior tilt. M9 OT- IP Assessment and Plan Start: 09/03/21 11:31 Freq: Status: Active Protocol: Document 09/05/21 11:04 [facility] (Rec: 09/05/21 11:43 [facility] [id number]) OT Summary Assessment and Plan Potential Rehabilitation Potential Good Analytic Complexity at Evaluation Moderate Summary OT Impairments Strength,Balance,Coordination, Sensation,Functional Cognition ,Functional Mobility,Self- Feeding,Grooming,Dressing, Toileting,Bathing,Toilet Transfers,Shower Transfers, Activity Tolerance Progress Towards Goals Progressing Toward Goals Assessment Summary Pt looking to go to acute rehab today. Goals Self-Feeding Goal Independent Grooming Goal Independent Dressing Goal Independent Toileting Goal Independent Bathing Goal Standby Assistance Toilet Transfer Goal Independent Shower Transfer Goal Independent Patient/Caregiver Education Goal Caregiver Independent Assisting Patient Days to Meet Goals 24 Frequency of Treatment Frequency Of Treatment Once a Day Treatment Plan OT Treatment Plan ADL Training,Functional Cognition Training,Functional Mobility,Patient/Family Education,Discharge Planning Discharge Recommendations OT Discharge Recommendations Acute Rehab Transportation Needs at Discharge Private Vehicle,Wheelchair/ Cabulance
--- NOTE | 2021-09-05 11:44 | PM.DS.1 ---
History of Present Illness History of Present Illness Date Patient Seen: 09/05/21 Time Patient Seen: 08:45 Chief complaint: thinks he had a stroke today and 5 days ago Narrative: Per Dr. Burch, Mr. Cotter is a 71M with PMH CAD s/p stents, CVA, HTN, HL, GERD, depression who presents with left sided numbness and weakness. Patient states he has had a stroke in the past, it occurred while asleep over a year ago, at the time he was living in a different state. He has had residual left sided weakness since then. He also has CAD s/p stents. He is intermittently compliant with all his medications. He notes that he started having left sided numbness and weakness that started perhaps five days ago. He notes that it began worsening especially in the last two days. He was unsteady and fell yesterday and bruised his torso. Today he noted worsening numbness in his left hand that then included numbness in his leg and slight numbness in his right hand. He felt his left leg and hand were weaker than his baseline. His son notes some chronic decline and that he has had incontinent episodes overnight. He denies any saddle anesthesia. In the ED workup was done, vitals notable for blood pressure 208/102.? Labs notable for WBC 6.3, hgb 12.7, plts 302. Na 136, BUN 31, creatinine 1.27. CT head and CT head/neck showed no acute process. He was admitted for further treatment. PMH: CAD s/p stents, CVA, HTN, HL, GERD, Depression Social history: smokes cigarettes occasionally, marijuana smoker, rare alcohol use Family history: denies stroke or CVA in parents Discharge Providers Provider Date of admission: 09/02/21 17:20 Discharge Date: 09/05/21 Primary care physician: Charity Georges MD Consults: 09/02/21 18:01 Consult to Discharge Planning Routine Comment: Consult to Occupational Therapy Evaluate & Treat Comment: Physician Instructions: Evaluate and treat Consult to Physical Therapy Evaluate & Treat Comment: Physician Instructions: Evaluate and Treat Consult to Speech Therapy Evaluate & Treat Comment: Physician Instructions: Evaluate and treat 09/02/21 18:28 Consult to Dietitian, Adult Routine Comment: Reason For Exam: loss of 25 lbs in last 3 months Discharge provider: Mark Fox DO Summary Hospital Course Discharge Diagnosis: 1. CVA, present on admission 2. History of CVA 3. History of CAD s/p stents 4. Hypertensive urgency, improved 5. Elevated creatinine 5. Hyperlipidemia 6. GERD 7. Depression 8. Severe acute protein calorie malnutrition 9. Likely cognitive impairment 10. Acute encephalopathy resolved Hospital Course: Mr. Cotter is a 71M with PMH CVA, CAD s/p stents, HTN, HL who presented with left-sided numbness and weakness which slowly improved over the course of his stay. MRI confirmed that he had a subacute infarct on the right correlating with his symptoms. Patient was continued on his home aspirin and Plavix and high-dose statin were added. He resumed his home blood pressure medications with improvement in his hypertension at the time of discharge. Home lovastatin was changed to high-dose atorvastatin at the time of discharge. Echocardiogram was performed which showed no significant abnormalities. He Was seen by Physical and Occupational therapy who recommended acute rehab to which he was transferred at the time of discharge. He had also been having some recent weight loss and was seen by the pageant director who provided additional recommendations for his severe acute protein calorie mild nutrition which may help him recover from his acute CVA more quickly. Overnight on hospital day 1, the patient began pulling at wires and became very confused. This is likely due to a dose of Ambien that he received the night before for insomnia, possibly in combination with a hospital delirium. He had no further issues the following night however I do recommend cognitive evaluation as an outpatient for probable cognitive impairment. I would also recommend that he not continue Ambien. Time Spent with Patient Time spent: Greater than 30 minutes Exam Vital Signs (past 8 hours): - 09/05/21 07:00 09/05/21 07:45 09/05/21 09:05 Temperature 97.6 F Pulse Rate 49 L Respiratory Rate 16 Blood Pressure 147/74 H Pulse Oximetry 97 97 98 09/05/21 09:56 Temperature Pulse Rate Respiratory Rate Blood Pressure 147/74 H Pulse Oximetry Oxygen Delivery Method Room Air Oxygen Flow Rate 0 Narrative Exam Narrative: GEN: no acute distress, thin and chronically ill appearing. HEENT: moist mucous membranes, PERRL. NECK: trachea midline, no JVD PULM: clear bilaterally, no wheezes, rhonchi, rales ABD: soft, nontender, nondistended, no organomeagly, normal bowel sounds EXT: warm and well perfused with no edema SKIN: bruises on trunk, no rashes. 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 Reports subjective numbness on left upper and lower extremities. PSYCH: pleasant, appropriate affect Objective Labs Result Diagrams: 09/03/21 05:30 09/03/21 05:30 [facility] Medical History Hypertension Social History household members: children Smoking Status: Current every day smoker alcohol intake: never Discharge Plan Discharge Plan Patient Disposition: er Inpatient Rehab Other facility: [facility] Acute Rehab Provider Discharge Comment: Patient was admitted following a new stroke. Started on appropriate medical therapy. Developed confusion after ambien given for sleep, would avoid in the future if possible. Transfer to acute rehab. Discharge orders & Medications Discharge Orders: Discharge (Order); Ordered 09/05/21 Ordered By: Mark Fox Prescriptions: New atorvastatin [Lipitor] 20 mg Tablet 80 mg PO BEDTIME 30 Days Qty: 30 0RF acetaminophen 325 mg Tablet 650 mg PO Q6HR PRN (Reason: Fever/Mild Pain (1-3)) 30 Days Qty: 30 0RF aspirin 81 mg Tablet,Delayed Release (Dr/Ec) 81 mg PO DAILY 30 Days Qty: 30 0RF clopidogrel 75 mg Tablet 75 mg PO DAILY 19 Days Qty: 19 0RF Continued sertraline 50 mg tablet 50 mg PO DAILY 0RF levothyroxine 125 mcg tablet 125 mcg PO DAILY 0RF metoprolol succinate 50 mg tablet extended release 24 hr 50 mg PO DAILY 0RF pantoprazole 40 mg tablet,delayed release (DR/EC) 40 mg PO DAILY 0RF Discontinued lovastatin 40 mg tablet 40 mg PO QPM 0RF Follow up/Referrals: Charity Georges MD [Primary Care Provider] - Diet/Activity/Treatments Diet: Diet as Tolerated and Low-sodium Liquid consistency: Normal/Thin Food texture: Regular Activity: As tolerated Special Rehabilitation Services Reason for rehabilitation: Therapy following stroke Rehab type: Physical therapy and Occupational therapy Discharge Data Primary Care Provider: Charity Georges Quality Stroke Contraindication Not Initiating IV-Tpa: Not indicated Rehab Services Assessed: Stroke rehabilitation
[2021-09-05 12:52] LABS: COVID19 -Nasal RAPID Negative (Negative)
--- NOTE | 2021-09-05 16:32 | PC.NURSE ---
Pt is ready for discharge with Son [facility]ak[facility]. Spoke to Receiving RN and gave full report. No further questions. Packet given to Pt's son and Pt out via w/c to POV with Son and all belongings.
== END 2021-09-05 16:47 | DRG 64 ==
LOC: ED 16:48 → AC 17:22
PROVIDERS: Internal Medicine; Admitting Provider Internal Medicine; Emergency Provider Emergency Medicine; PCP Internal Medicine; Referring Provider Emergency Medicine; Visit Provider Internal Medicine
DX: I63.9 Cerebral infarction, unspecified (principal); E43 Unspecified severe protein-calorie malnutrition; Z68.1 Body mass index [BMI] 19.9 or less, adult; G93.49 Other encephalopathy; G81.94 Hemiplegia, unspecified affecting left nondominant side; I16.0 Hypertensive urgency; R20.0 Anesthesia of skin; I25.10 Atherosclerotic heart disease of native coronary artery without angina pectoris; E78.5 Hyperlipidemia, unspecified; K21.9 Gastro-esophageal reflux disease without esophagitis; F32.A Depression, unspecified; I10 Essential (primary) hypertension; F17.200 Nicotine dependence, unspecified, uncomplicated; R29.703 NIHSS score 3; R29.704 NIHSS score 4; Z20.822 Contact with and (suspected) exposure to COVID-19; Z66 Do not resuscitate; Z95.5 Presence of coronary angioplasty implant and graft
CPT/HCPCS: 36415; 70450; 70496; 70498; 70551; 80048; 80053; 80061; 82550; 82553; 82962; 83036; 83690; 83735; 84484; 85025; 85610; 85730; 87635; 92526; 92610; 93005; 93306; 94760; 96374; 97162; 97166; 97530; 97535; 99285; 99291; C9803; J1650

== ENCOUNTER 2021-09-19 22:18 | Observation (INO) | payer OTHER, SELFPAY ==
[2021-09-02 18:14] VITALS: BMI 18.4
[2021-09-19] VITALS (9 sets, daily range): BP systolic 161–179; BP diastolic 75–89; PULSE 48–71; RESP 16–20; TEMP 36.6; O2SAT 97–98; BMI 22.8
--- NOTE | 2021-09-19 22:22 | DI.CT.S_ITS ---
PROCEDURE: CT STROKE INDICATIONS: new stroke symptoms, facial weakness and speech trouble TECHNIQUE: Noncontrast 4.5 mm thick angled axial sections acquired from the foramen magnum to the vertex, with coronal reformats. For radiation dose reduction, the following was used: automated exposure control, adjustment of mA and/or kV according to patient size. COMPARISON: [facility], MR, MR HEAD/BRAIN WO CON, 09/03/2021, 8:24. [facility], CT, CT STROKE, 09/02/2021, 15:50. FINDINGS: Image quality: Excellent. CSF spaces: Basal cisterns are patent. No extra-axial fluid collections. The ventricles are symmetric in size and shape. Brain: No acute intracranial hemorrhage or mass effect. There are moderate to severe periventricular and deep white matter chronic small vessel ischemic changes. Previously seen small areas of subacute infarct are confluent with areas of chronic white matter disease. No new loss of page-white matter differentiation is seen. There is cerebral volume loss for age, with resultant ventricular and sulcal prominence. There is intracranial internal carotid artery atherosclerosis. Skull and face: Calvarium and visualized facial bones appear intact, without suspicious lesions. Sinuses: There is opacification of the left maxillary sinus, left frontal sinus, and left anterior ethmoid air cells. Near complete opacification of the left sphenoid sinus is also seen. IMPRESSION: 1. No acute intracranial abnormality. 2. Moderate to severe chronic microvascular ischemic changes, which obscure the previously seen small right-sided infarcts on the MRI from 09/03/2021. 3. Paranasal sinus disease. Findings were discussed with the referring physician, Dr. Whyte, by telephone on 09/19/2021 at 10:58 PM. This study fulfills neurological imaging criteria for inclusion or exclusion of acute stroke therapies based on available published neurological guidelines. Dictated by: Pedro Tong M.D. on 09/19/2021 at 22:56 Approved by: Pedro Tong M.D. on 09/19/2021 at 23:02
--- NOTE | 2021-09-19 22:23 | DI.CT.S_ITS ---
PROCEDURE: CT ANGIO HEAD AND NECK INDICATIONS: new stroke symptoms, facial weakness and speech trouble TECHNIQUE: After the administration of intravenous contrast, 1 mm thick sections acquired from the aortic arch through the [place] of [place]. Post-contrast 4.5 mm thick sections then re-acquired from the foramen magnum to the vertex. 3-dimensional pebzwig-bdmaaenek-ihwijldcun (MIP) and/or volume rendering reformats were acquired of the central intracranial vasculature and neck separately. COMPARISON: Located Within [facility], CT, CT ANGIO HEAD AND NECK, 09/02/2021, 15:50. FINDINGS: Image quality: Excellent. BRAIN: CSF spaces: Ventricles are symmetric in size and shape. Basal cisterns are patent. No extra-axial fluid collections. Brain: No midline shift. No acute intracranial hemorrhage or mass effect. Moderate to severe chronic microvascular ischemic changes. Skull and face: Calvarium and facial bones appear intact, without suspicious lesions. Orbits appear normal. Sinuses: Left-sided paranasal sinus disease is noted. HEAD CT ANGIOGRAPHY: Anterior circulation: Intracranial internal carotid arteries demonstrate atherosclerotic calcifications without hemodynamically significant stenosis. The flow within the paired anterior cerebral arteries is normal and symmetric. The flow within the middle cerebral arteries is normal and symmetric. The anterior communicating artery is seen. No aneurysms are seen. Posterior circulation: Visualized portions of the vertebral arteries demonstrate normal caliber, and join to form a normal appearing basilar artery. Flow within the posterior cerebral arteries is normal and symmetric. No aneurysms are seen. NECK CT ANGIOGRAPHY: Carotid system: The great vessels demonstrate a conventional anatomy as they arise from the aortic arch. The origins of the common carotid arteries appear patent. The common carotid arteries demonstrate normal caliber and courses. Calcified atherosclerotic plaque is seen at the right carotid bifurcation without significant stenosis of the right proximal internal carotid artery. No significant calcified plaque at the left carotid bifurcation. The internal carotid arteries demonstrate normal calibers and courses. Posterior circulation: Mild calcified atherosclerotic disease at the origin of the right vertebral artery without significant stenosis. The left vertebral artery origin is patent. The more superior extracranial portions of both vertebral arteries also demonstrate normal courses and calibers. They join to form a normal appearing basilar artery. Soft tissues: Visualized neck soft tissues demonstrate no suspicious abnormalities. Mild centrilobular emphysema. Bones: No suspicious bony lesions. Degenerative changes are seen in the included spine. IMPRESSION: 1. No acute large vessel occlusion or high-grade stenosis. No significant change when compared to the CTA from 09/02/2021. 2. Moderate to severe chronic microvascular ischemic changes. Any quantitative measurements of stenosis were performed using NASCET criteria. Dictated by: Pedro Tong M.D. on 09/19/2021 at 23:02 Approved by: Pedro Tong M.D. on 09/19/2021 at 23:12
[2021-09-19 22:46] LABS: Add Manual Diff / Slide Review NO; Basophils Absolute Auto 300 /uL (0-100); Basophils Percent Auto 3.8 % (0-2); Eosinophils Absolute Auto 1200 /uL (0-450); Eosinophils Percent Auto 17.7 % (2-4); Hematocrit 32.5 % (41-53); Hemoglobin 10.9 g/dL (13.5-17.5); Lymphocytes Absolute Auto 1500 /uL (1100-4500); Lymphocytes Percent Auto 22.8 % (25-40); Mean Corpuscular HGB Conc 33.7 % (30-36); Mean Corpuscular Hemoglobin 31.6 PG (26-34); Mean Corpuscular Volume 93.9 fL (80-100); Monocytes Absolute Auto 500 /uL (0-900); Monocytes Percent Auto 7.6 % (3-14); Neutrophils Absolute Auto 3200 /uL (1500-7000); Neutrophils Percent Auto 48.1 % (50-75); Platelet Count 304 X10^3/uL (150-400); Prothrombin Time 11.3 SECONDS (10.1-12.7); Red Blood Cell Count 3.46 X10^6/uL (4.5-5.9); Red Cell Distribution Width 16.6 % (11.6-14.8); White Blood Cell Count 6.6 X10^3/uL (4.5-11.0)
[2021-09-19 22:50] LABS: Alanine Aminotransferase 136 IU/L (<50); Albumin 3.8 g/dL (3.5-5.0); Albumin Globulin Ratio 0.9 (1.0-2.8); Alkaline Phosphatase 1169 U/L (38-126); Aspartate Aminotransferase 147 IU/L (17-59); BUN Creatinine Ratio 22.9 (6-22); Bilirubin Total 0.5 mg/dL (0.2-1.3); Blood Urea Nitrogen 22 mg/dL (9-20); Calcium 9.5 mg/dL (8.4-10.2); Carbon Dioxide 32 mmol/L (22-32); Chloride 105 mmol/L (98-107); Creatine Kinase 38 U/L (55-170); Estimated Glomerular Filt Rate > 60.0 mL/min (>60); Globulin 4.1 g/dL (1.7-4.1); Glucose 93 mg/dL (80-110); HEMOLYSIS < 15 (0-50); Potassium 4.2 mmol/L (3.4-5.1); Sodium 139 mmol/L (137-145); Total Protein 7.9 g/dL (6.3-8.2)
[2021-09-19] MEDS: SODIUM CHLORIDE 0.9% 1,000 ML 150 ML IV (22:52)
--- NOTE | 2021-09-19 22:55 | ED.NEUROSD ---
HPI - Neuro Symptoms/Deficit General Chief Complaint: Neuro Symptoms/Deficit Stated Complaint: possible tia Time Seen by Provider: 09/19/21 22:21 History of Present Illness HPI Narrative: 71-year-old male smoker with history of hypertension, hyperlipidemia stroke with left-sided deficits presents by EMS as a code stroke. He had been in his normal state of health when his son noticed significant right-sided facial weakness, slurring of speech and confusion that lasted about 20 minutes before activating EMS. By the time he arrived here his facial symptoms had improved but he was still slightly confused. He has persistent left upper and lower extremity weakness and is unable to ambulate at baseline. Directed and denies any changes in his medications. He has had no recent falls or trauma denies any fever or chills. He was admitted in August for stroke and hypertension and was discharged to [facility] rehab. Patient is taken directly to CT but not activated as a code stroke as he is not currently having symptoms On Anticoagulants: Yes Related Data Home Medications Medication Instructions Recorded Confirmed levothyroxine 125 mcg tablet 125 mcg PO DAILY 09/03/21 09/03/21 lovastatin 40 mg tablet 40 mg PO QPM 09/03/21 09/03/21 metoprolol succinate 50 mg 50 mg PO DAILY 09/03/21 09/03/21 tablet,extended release 24 hr pantoprazole 40 mg tablet,delayed 40 mg PO DAILY 09/03/21 09/03/21 release sertraline 50 mg tablet 50 mg PO DAILY 09/03/21 09/03/21 Allergies Allergy/AdvReac Type Severity Reaction Status Date / Time amitriptyline [From Elavil] Allergy Unknown Verified 10/01/20 11:13 Review of Systems Review of Systems Narrative: GENERAL: Denies chills, fatigue, malaise, fever, sweats. HEENT: Denies sinus pain, ear pain, sore throat, difficulty swallowing, dizziness. RESPIRATORY: Denies dyspnea, cough, wheezing, hemoptysis, sputum. CARDIOVASCULAR: Denies chest pain, palpitations, orthopnea, edema, GASTROINTESTINAL: Denies nausea, vomiting, abdominal pain, diarrhea, constipation, melena. : Denies dysuria, frequency, incontinence, hematuria, urinary retention. MUSCULOSKELETAL: denies weakness, joint pain, or bony pain SKIN: Denies rash, skin lesions, or other NEUROLOGIC: See HPI PSYCHIATRIC: No concerning psychosocial issues. 12 point review of systems is negative except for those stated above Hematologic/Lymphatic On Anticoagulants: Yes Patient History Medical History Hypertension Social History household members: children Smoking Status: Current every day smoker alcohol intake: never Smoking Status: Current every day smoker tobacco type: cigarettes Substance Use Type: marijuana Exam Narrative Exam Narrative: GENERAL: [71 year old patient appears stated age. Well-developed patient, in mild distress. HEAD: Atraumatic. Normocephalic. EYES: Pupils equal round and reactive. Extraocular motions intact. No scleral icterus. No injection or drainage. ENT: Nose without bleeding, purulent drainage. Throat without erythema, tonsillar hypertrophy or exudate. Airway patent. NECK: Trachea midline. Non tender CARDIOVASCULAR: Regular rate and rhythm without murmurs, gallops, or rubs. RESPIRATORY: Clear to auscultation. Breath sounds equal bilaterally. No wheezes, rales, or rhonchi. GASTROINTESTINAL: Abdomen soft, non-tender, nondistended. EXTREMITIES: No edema or joint tenderness. BACK: Nontender without deformity or crepitance. No flank tenderness. NEURO: AOx3. Cranial nerves 2-12 grossly intact, left side upper lower extremity weakness is chronic per patient and son SKIN: No rash or erythema of visible areas Initial Vital Signs Initial Vital Signs: Vital Signs Temperature 97.9 F 09/19/21 22:24 Pulse Rate 71 09/19/21 22:24 Respiratory Rate 16 09/19/21 22:24 Blood Pressure 164/81 H 09/19/21 22:24 Pulse Oximetry 97 09/19/21 22:24 Scores NIH Stroke Scale Level of Conciousness: Alert, keenly responsive Ask month/age: Answers both questions correctly. Open/close eyes, close hand: Performs both tasks correctly Best gaze horizontal: Normal Visual burroughs: No visual loss Facial palsy: Normal symetrical movement Left arm drift: Drifts down, not to bed Right arm drift: No drift for full 10 sec Left leg drift: Drifts down, not to bed Right leg drift: No drift for full 5 sec Limb ataxia: Absent Sensory on face/arms/legs: Normal, no sensory loss Best language: No aphasia, normal Dysarthria: Normal Extinction or inattention: No abnormality Total NIH Stroke scale score: 2 Course Orders Ordered: ED Orders 09/19/21 22:20 Complete Blood Count AUTO DIFF Stat Comprehensive Metabolic Panel Stat Prothrombin Time INR Stat Troponin & CK Cardiac Panel Stat 09/19/21 22:22 CT Stroke Stat Urine Drug Screen, Rapid Stat EKG-12 Lead Stat 09/19/21 22:23 CT angio head and neck Stat 09/19/21 22:57 COVID19 -Nasal swab/Pre-Proc Stat Sodium Chloride (Normal Saline 0.9%) 1,000 mls @ 150 mls/hr IV CONT NAYELY Last Admin: 09/19/21 22:52 Dose: 150 mls/hr Documented by: ATAYLOR Vital Signs Vital signs: Vital Signs - 8 hr 09/19/21 22:24 09/19/21 22:26 09/19/21 22:40 Temperature 97.9 F Pulse Rate 71 53 L 61 Respiratory Rate 16 17 18 Blood Pressure 164/81 H Pulse Oximetry 97 98 09/19/21 22:41 09/19/21 22:45 09/19/21 23:00 Temperature Pulse Rate 59 L 55 L 56 L Respiratory Rate 18 19 17 Blood Pressure 179/89 H 167/82 H 173/87 H Pulse Oximetry 97 97 97 09/19/21 23:15 09/19/21 23:30 09/19/21 23:45 Temperature Pulse Rate 49 L 50 L 48 L Respiratory Rate 17 20 18 Blood Pressure 177/82 H 169/82 H 161/75 H Pulse Oximetry 97 97 97 09/20/21 00:00 09/20/21 00:15 09/20/21 00:30 Temperature Pulse Rate 47 L 49 L 50 L Respiratory Rate 16 17 17 Blood Pressure 157/77 H 151/72 H 149/77 H Pulse Oximetry 97 97 96 09/20/21 00:45 09/20/21 01:00 09/20/21 01:15 Temperature Pulse Rate 49 L 47 L 50 L Respiratory Rate 17 16 16 Blood Pressure 149/76 H 140/68 133/64 Pulse Oximetry 97 97 97 09/20/21 01:30 Temperature Pulse Rate 48 L Respiratory Rate 17 Blood Pressure 147/73 H Pulse Oximetry 97 MDM - Neuro Symptoms/Deficit Lab Data Result diagrams: 09/19/21 22:20 09/19/21 22:20 Labs: Lab Results 09/19/21 09/19/21 09/19/21 Range/Units 22:20 22:20 22:20 WBC 6.6 (4.5-11.0) X10^3/uL RBC 3.46 L (4.5-5.9) X10^6/uL Hgb 10.9 L (13.5-17.5) g/dL Hct 32.5 L (41-53) % MCV 93.9 (80-100) fL MCH 31.6 (26-34) PG MCHC 33.7 (30-36) % RDW 16.6 H (11.6-14.8) % Plt Count 304 (150-400) X10^3/uL Neut % (Auto) 48.1 L (50-75) % Lymph % (Auto) 22.8 L (25-40) % [place] % (Auto) 7.6 (3-14) % Eos % (Auto) 17.7 H (2-4) % Baso % (Auto) 3.8 H (0-2) % Neut # (Auto) 3200 (2549-9394) /uL Lymph # (Auto) 1500 (3254-4525) /uL [place] # (Auto) 500 (0-900) /uL Eos # (Auto) 1200 H (0-450) /uL Baso # (Auto) 300 H (0-100) /uL PT 11.3 (10.1-12.7) SECONDS INR 1.0 (0.9-1.3) Sodium 139 (137-145) mmol/L Potassium 4.2 (3.4-5.1) mmol/L Chloride 105 (98-107) mmol/L Carbon Dioxide 32 (22-32) mmol/L BUN 22 H (9-20) mg/dL Creatinine 0.96 (0.66-1.25) mg/dL Estimated GFR > 60.0 (>60) mL/min BUN/Creatinine Ratio 22.9 H (6-22) Glucose 93 (80-110) mg/dL Calcium 9.5 (8.4-10.2) mg/dL Total Bilirubin 0.5 (0.2-1.3) mg/dL AST 147 H (17-59) IU/L ALT 136 H (<50) IU/L Alkaline Phosphatase 1169 H (38-126) U/L Total Creatine Kinase 38 L (55-170) U/L CK-MB (CK-2) TNP CK-MB (CK-2) Rel Index TNP Troponin I < 0.012 (0.01-0.034) ng/mL Total Protein 7.9 (6.3-8.2) g/dL Albumin 3.8 (3.5-5.0) g/dL Globulin 4.1 (1.7-4.1) g/dL Albumin/Globulin Ratio 0.9 L (1.0-2.8) SARS-CoV-2 (PCR) (Negative) 09/19/21 Range/Units 22:57 WBC (4.5-11.0) X10^3/uL RBC (4.5-5.9) X10^6/uL Hgb (13.5-17.5) g/dL Hct (41-53) % MCV (80-100) fL MCH (26-34) PG MCHC (30-36) % RDW (11.6-14.8) % Plt Count (150-400) X10^3/uL Neut % (Auto) (50-75) % Lymph % (Auto) (25-40) % [place] % (Auto) (3-14) % Eos % (Auto) (2-4) % Baso % (Auto) (0-2) % Neut # (Auto) (5445-8729) /uL Lymph # (Auto) (3040-8558) /uL [place] # (Auto) (0-900) /uL Eos # (Auto) (0-450) /uL Baso # (Auto) (0-100) /uL PT (10.1-12.7) SECONDS INR (0.9-1.3) Sodium (137-145) mmol/L Potassium (3.4-5.1) mmol/L Chloride (98-107) mmol/L Carbon Dioxide (22-32) mmol/L BUN (9-20) mg/dL Creatinine (0.66-1.25) mg/dL Estimated GFR (>60) mL/min BUN/Creatinine Ratio (6-22) Glucose (80-110) mg/dL Calcium (8.4-10.2) mg/dL Total Bilirubin (0.2-1.3) mg/dL AST (17-59) IU/L ALT (<50) IU/L Alkaline Phosphatase (38-126) U/L Total Creatine Kinase (55-170) U/L CK-MB (CK-2) CK-MB (CK-2) Rel Index Troponin I (0.01-0.034) ng/mL Total Protein (6.3-8.2) g/dL Albumin (3.5-5.0) g/dL Globulin (1.7-4.1) g/dL Albumin/Globulin Ratio (1.0-2.8) SARS-CoV-2 (PCR) Negative (Negative) Point of Care Testing Glucose POC [address] scan - head: Radiologist's Impression: [address] [address] [address] Scan Report Signed Patient: Abe Coronado MR#: [id number] : 06/30/1933 Acct:[id number] Age/Sex: 88 / M Date of Service: 09/20/21 Loc: ED Accession Number: [id number] ?? Procedure: CT angio chest PE protocol Ordering Provider: Lanre Whyte D.O. PROCEDURE:? CT ANGIO CHEST PE PROTOCOL ? INDICATIONS:? Shortness of breath, hypoxemia, critical Dimer ? TECHNIQUE:? After the administration of intravenous contrast, 2 mm thick sections acquired from the pulmonary apices to the posterior costophrenic angles.? 3-dimensional maximum intensity projection (MIP) coronal and sagittal reformats were then acquired through the thorax.? For radiation dose reduction, the following was used:? automated exposure control, adjustment of mA and/or kV according to patient size.? ? COMPARISON:? [facility], CT, CT ANGIO CHEST PE PROTOCOL, 12/15/2020, 15:25. ? FINDINGS:? Image quality:? Excellent.? ? Pulmonary arteries:? Pulmonary arteries are normal in size, and demonstrate no intraluminal filling defects to suggest central pulmonary embolism.? ? Lungs and pleura:? There is atelectasis in the lung bases bilaterally.? No acute consolidation is seen.? No pleural effusions or pneumothorax.? Central and peripheral airways are patent.? ? Mediastinum:? Heart size is borderline, without pericardial effusion.? No mediastinal or hilar adenopathy.? Thoracic aorta is normal in caliber and enhancement.? Moderate aortic atherosclerotic calcifications.? Esophagus is normal in caliber, without hiatal hernia.? ? Bones and chest wall:? No suspicious bony lesions.? Degenerative changes are seen in the spine.? Thyroid is unremarkable.? No axillary or supraclavicular adenopathy.? ? Abdomen:? Visualized upper abdominal solid organs appear normal in the early arterial phase of enhancement.? ? IMPRESSION:? No acute pulmonary embolism.? No acute abnormality is seen in the chest. ? ? Dictated by: Pedro Tnog M.D. on 09/20/2021 at 0:41 ? ? Approved by: Pedro Tong M.D. on 09/20/2021 at 0:47 ? CTA Head/Neck: Radiologist's Impression: Gareth Cotter??71??M??1950 ? Allergy/Adv: amitriptyline Close Head/Neck CTA (Signed) Pedro Tong - 09/19/[address] (Signed) Pedro Tong - 09/19/21 Brain MRI (Signed) Josemanuel Savage - 09/03/21 Echocardiogram Ultrasound (Signed) Abdon Truong - 09/02/21 Telemetry Strips 09/02/21 Head/Neck CTA (Signed) Fox Mazariegos - 09/02/[address] (Signed) Naida Quick - 09/02/21 Knee X-Ray (Signed) Master Carrillo - 01/21/21 Chest X-Ray (Signed) Jose Roberto Lerner - 10/01/20 [place] [address] CT Scan Report Signed Patient: Gareth Cotter MR#: [id number] : 1950 Acct:[id number] Age/Sex: 71 / M Date of Service: 09/19/21 Loc: ED Accession Number: [id number] ?? Procedure: CT angio head and neck Ordering Provider: Lanre Whyte D.O. PROCEDURE:? CT ANGIO HEAD AND NECK ? INDICATIONS:? new stroke symptoms, facial weakness and speech trouble ? TECHNIQUE:? After the administration of intravenous contrast, 1 mm thick sections acquired from the aortic arch through the [place] of [place].? Post-contrast 4.5 mm thick sections then re-acquired from the foramen magnum to the vertex.? 3-dimensional ahrdxjw-pxqnqzthv-odonezwetr (MIP) and/or volume rendering reformats were acquired of the central intracranial vasculature and neck separately. ? COMPARISON:? [facility], CT, CT ANGIO HEAD AND NECK, 09/02/2021, 15:50. ? FINDINGS:? Image quality:? Excellent.? ? BRAIN:? CSF spaces:? Ventricles are symmetric in size and shape.? Basal cisterns are patent.? No extra-axial fluid collections.? ? Brain:? No midline shift.? No acute intracranial hemorrhage or mass effect.? Moderate to severe chronic microvascular ischemic changes. ? Skull and face:? Calvarium and facial bones appear intact, without suspicious lesions.? Orbits appear normal.? ? Sinuses:? Left-sided paranasal sinus disease is noted. ? HEAD CT ANGIOGRAPHY:? Anterior circulation:? Intracranial internal carotid arteries demonstrate atherosclerotic calcifications without hemodynamically significant stenosis.? The flow within the paired anterior cerebral arteries is normal and symmetric.? The flow within the middle cerebral arteries is normal and symmetric.? The anterior communicating artery is seen.? No aneurysms are seen.? ? Posterior circulation:? Visualized portions of the vertebral arteries demonstrate normal caliber, and join to form a normal appearing basilar artery.? Flow within the posterior cerebral arteries is normal and symmetric.? No aneurysms are seen.? ? NECK CT ANGIOGRAPHY:? Carotid system:? The great vessels demonstrate a conventional anatomy as they arise from the aortic arch.? The origins of the common carotid arteries appear patent.? The common carotid arteries demonstrate normal caliber and courses.? Calcified atherosclerotic plaque is seen at the right carotid bifurcation without significant stenosis of the right proximal internal carotid artery.? No significant calcified plaque at the left carotid bifurcation.? The internal carotid arteries demonstrate normal calibers and courses.? ? Posterior circulation:? Mild calcified atherosclerotic disease at the origin of the right vertebral artery without significant stenosis.? The left vertebral artery origin is patent.? The more superior extracranial portions of both vertebral arteries also demonstrate normal courses and calibers.? They join to form a normal appearing basilar artery.? ? Soft tissues:? Visualized neck soft tissues demonstrate no suspicious abnormalities.? Mild centrilobular emphysema. ? Bones:? No suspicious bony lesions.? Degenerative changes are seen in the included spine. ? ? IMPRESSION:? 1. No acute large vessel occlusion or high-grade stenosis.? No significant change when compared to the CTA from 09/02/2021. 2. Moderate to severe chronic microvascular ischemic changes. ? Any quantitative measurements of stenosis were performed using NASCET criteria.? ? ? Dictated by: Pedro Tong M.D. on 09/19/2021 at 23:02 ? ? Approved by: Pedro Tong M.D. on 09/19/2021 at 23:12 ? ECG Data Interpretation: EKG nose sinus rhythm with bradycardia. Rate 47. P are 154. QRS 86. QTC 434. No signs of ischemia or ectopy MDM Narrative Medical decision making narrative: Patient with right-sided facial weakness, speech difficulties and confusion lasting approximately 1 hour with complete resolution soon after arrival. Patient does have persisting left upper and lower extremity weakness that is consistent with his baseline and prior stroke. CT and CTA of the head neck are unremarkable. Patient requires hospitalization for further evaluation stabilization of his condition Discharge Plan Departure Patient Disposition: Admitted as Observation Clinical Impression: Transient cerebral ischemia Admit Date/Time: 09/20/21 01:46
[2021-09-19 23:02] LABS: Troponin I < 0.012 ng/mL (0.01-0.034)
[2021-09-19 23:22] LABS: COVID19 -Nasal RAPID Negative (Negative)
[2021-09-20] VITALS (40 sets, daily range): BP systolic 126–203; BP diastolic 64–95; PULSE 45–55; RESP 12–24; TEMP 36.5–37.3; O2SAT 96–98; BMI 19.8
--- NOTE | 2021-09-20 02:09 | DI.CT.S_ITS ---
PROCEDURE: CT ABDOMEN PELVIS W CON INDICATIONS: elevated LFTs TECHNIQUE: After the administration of oral and IV contrast, axial sections were acquired from the lung bases to the pubic symphysis. Coronal and sagittal reformats were performed. For radiation dose reduction, the following was used: automated exposure control, adjustment of mA and/or kV according to patient size. COMPARISON: None. FINDINGS: Image quality: Excellent. Lung bases: There is mild dependent atelectasis. Heart: Heart is normal in size. ABDOMEN: Liver: The liver demonstrates heterogeneous enhancement without a discrete mass identified. Gallbladder: Within normal limits without calcified gallstones. Biliary ducts: No biliary ductal dilatation. Pancreas: Unremarkable. Spleen: Normal in size. Adrenal Glands: No adrenal nodules. Kidneys and Ureters: No hydronephrosis. There is nonspecific perinephric stranding bilaterally. Bilateral nonobstructing renal stones are demonstrated, with evaluation limited by the presence of contrast in the renal collecting systems. There are a few small cysts bilaterally. Stomach and Bowel: Stomach, small bowel loops, and colon are normal in caliber and wall thickness. There is colonic diverticulosis without acute diverticulitis. A moderate amount of stool is present within the colon distally suggestive of constipation. Peritoneum: No abnormal intraperitoneal fluid. No free air. Ventral Wall: No hernia. Abdominal Nodes: No retroperitoneal or mesenteric adenopathy by size criteria. Vessels: Aorta and inferior vena cava are normal in size. PELVIS: Pelvic Organs: There is mild enlargement of the prostate. Bladder: Unremarkable. Pelvic Nodes: No enlarged lymph nodes. Miscellaneous: No inguinal hernias are seen. Bones: Visualized osseous structures demonstrate no suspicious focal lesions. IMPRESSION: 1. No biliary ductal dilatation. 2. Heterogeneous enhancement the liver without a discrete mass identified. The findings are nonspecific and may reflect a possible hepatitis. Correlation is recommended clinically. 3. Bilateral nephrolithiasis without hydronephrosis. 4. Colonic diverticulosis without acute diverticulitis. 5. Moderate amount of colonic stool suggestive of constipation. Dictated by: Nathaniel Barney M.D. on 09/20/2021 at 7:49 Approved by: Nathaniel Barney M.D. on 09/20/2021 at 7:54
--- NOTE | 2021-09-20 02:11 | DI.MRI.S_ITS ---
PROCEDURE: MR HEAD/BRAIN WO CON INDICATIONS: cva TECHNIQUE: Noncontrast axial T1 spin echo, axial T2 fast spin echo, sagittal and axial FLAIR, coronal T2 fast spin echo, axial gradient echo, axial diffusion and ADC through the brain. COMPARISON: [facility], , MR HEAD/BRAIN WO CON, 09/03/2021, 8:24. FINDINGS: Areas of restricted diffusion in the right frontal lobar deep white matter are redemonstrated, with less pronounced signal increase on diffusion-weighted image and signal decrease on the ADC map when compared with the prior study, reflecting the subacute nature of these infarcts. There is associated increased FLAIR signal abnormality. Severe chronic microvascular ischemic changes and mild global cerebral volume loss redemonstrated. No findings of mass effect or midline shift. The major intracranial vascular flow-related signal voids are maintained. IMPRESSION: Expected evolution of small infarcts in the right frontal lobe deep white matter. Dictated by: Terrence Lay M.D. on 09/20/2021 at 11:02 Approved by: Terrence Lay M.D. on 09/20/2021 at 11:05
--- NOTE | 2021-09-20 05:22 | PC.NURSE ---
Pt with previous stroke with residual left sided weakness.
--- NOTE | 2021-09-20 07:29 | PM.HP.1 ---
History of Present Illness History of Present Illness Chief complaint: possible tia Narrative: 71m with PMH smoker, HTN, HL, and recent CVA with left sided weakness who noted he was having facial numbness, and possible right facial weakness, slurred speech, confusion that occurred prior to coming in to the [facility]. He is not particularly detailed about his symptoms, he mostly notes himself that he felt his face was numb and weak. He was improving by the time he arrived to the ED. He has persistent left sided weakness and can not ambulate at baseline. He has not missed any medications. Because he was markedly improving he was not activated for a code stroke. In the ED workup was done, he was noted to be hypertensive. Labs notable for Hgb 10.9, wbc 6.6, creatinine 0.96. INR 1.0. LFTs abnormal with AST 147, ALT 136, alk hpos 1169. trop negative. COVID negative. Of note he did have an eosinophilia of 1200. CT head showed no acute process. CT angio head/neck showed no acute process. He was ordered for aspirin and admitted for further treatment. PMH: CAD s/p stents, CVA, HTN, HL, GERD, Depression Social history: smokes cigarettes occasionally, marijuana smoker, rare alcohol use Family history: denies stroke or CVA in parents, does not recall any other medical conditions in family Patient History Medical History Hypertension Family & Social History Social History: household members children Safety & Behavioral: Feels Safe in Current Yes Environment Been Physically Hurt or No Threatened By a Person Tobacco & Substance use: Tobacco type cigarettes,cannabis/marijuana Smoking Status Current every day smoker alcohol intake never Substance Use Type marijuana Meds Home Medications and Allergies Home Medications Medication Instructions Recorded Confirmed Type levothyroxine 125 mcg tablet 125 mcg PO DAILY 09/03/21 09/03/21 History lovastatin 40 mg tablet 40 mg PO QPM 09/03/21 09/03/21 History metoprolol succinate 50 mg 50 mg PO DAILY 09/03/21 09/03/21 History tablet,extended release 24 hr pantoprazole 40 mg tablet,delayed 40 mg PO DAILY 09/03/21 09/03/21 History release sertraline 50 mg tablet 50 mg PO DAILY 09/03/21 09/03/21 History Allergies Allergy/AdvReac Type Severity Reaction Status Date / Time amitriptyline [From Elavil] Allergy Unknown Verified 10/01/20 11:13 Review of Systems Review of Systems Narrative: 14 systems reviewed and negative aside from what is noted in HPI Exam Vital Signs (past 8 hours): - 09/19/21 23:30 09/19/21 23:45 09/20/21 00:00 Pulse Rate 50 L 48 L 47 L Respiratory Rate 20 18 16 Blood Pressure 169/82 H 161/75 H 157/77 H Pulse Oximetry 97 97 97 09/20/21 00:15 09/20/21 00:30 09/20/21 00:45 Pulse Rate 49 L 50 L 49 L Respiratory Rate 17 17 17 Blood Pressure 151/72 H 149/77 H 149/76 H Pulse Oximetry 97 96 97 09/20/21 01:00 09/20/21 01:15 09/20/21 01:30 Pulse Rate 47 L 50 L 48 L Respiratory Rate 16 16 17 Blood Pressure 140/68 133/64 147/73 H Pulse Oximetry 97 97 97 09/20/21 01:45 09/20/21 02:00 09/20/21 02:15 Pulse Rate 49 L 49 L 51 L Respiratory Rate 17 17 15 Blood Pressure 142/71 H 141/71 H 146/72 H Pulse Oximetry 97 09/20/21 02:30 09/20/21 02:45 09/20/21 03:02 Pulse Rate 47 L 47 L 48 L Respiratory Rate 18 17 18 Blood Pressure 132/66 150/75 H Pulse Oximetry 98 09/20/21 03:03 09/20/21 03:15 09/20/21 03:30 Pulse Rate 48 L 49 L 50 L Respiratory Rate 16 18 13 Blood Pressure 152/72 H 143/65 H 126/65 Pulse Oximetry 96 98 98 09/20/21 03:45 09/20/21 04:00 09/20/21 04:30 Pulse Rate 48 L 54 L 47 L Respiratory Rate 17 18 17 Blood Pressure 142/67 H Pulse Oximetry 96 97 09/20/21 05:00 09/20/21 05:30 09/20/21 06:00 Pulse Rate 47 L 49 L 49 L Respiratory Rate 17 16 13 Blood Pressure Pulse Oximetry 09/20/21 06:30 09/20/21 07:00 Pulse Rate 50 L 47 L Respiratory Rate 19 17 Blood Pressure 139/71 Pulse Oximetry Oxygen Delivery Method Room Air Objective Labs Result Diagrams: 09/19/21 22:20 09/19/21 22:20 Labs: Laboratory Results - last 24 hr 09/19/21 09/19/21 09/19/21 22:20 22:20 22:20 WBC 6.6 RBC 3.46 L Hgb 10.9 L Hct 32.5 L MCV 93.9 MCH 31.6 MCHC 33.7 RDW 16.6 H Plt Count 304 Neut % (Auto) 48.1 L Lymph % (Auto) 22.8 L [place] % (Auto) 7.6 Eos % (Auto) 17.7 H Baso % (Auto) 3.8 H Neut # (Auto) 3200 Lymph # (Auto) 1500 [place] # (Auto) 500 Eos # (Auto) 1200 H Baso # (Auto) 300 H PT 11.3 INR 1.0 Sodium 139 Potassium 4.2 Chloride 105 Carbon Dioxide 32 BUN 22 H Creatinine 0.96 Estimated GFR > 60.0 BUN/Creatinine Ratio 22.9 H Glucose 93 Calcium 9.5 Total Bilirubin 0.5 AST 147 H ALT 136 H Alkaline Phosphatase 1169 H Total Creatine Kinase 38 L CK-MB (CK-2) TNP CK-MB (CK-2) Rel Index TNP Troponin I < 0.012 Total Protein 7.9 Albumin 3.8 Globulin 4.1 Albumin/Globulin Ratio 0.9 L SARS-CoV-2 (PCR) 09/19/21 22:57 WBC RBC Hgb Hct MCV MCH MCHC RDW Plt Count Neut % (Auto) Lymph % (Auto) [place] % (Auto) Eos % (Auto) Baso % (Auto) Neut # (Auto) Lymph # (Auto) [place] # (Auto) Eos # (Auto) Baso # (Auto) PT INR Sodium Potassium Chloride Carbon Dioxide BUN Creatinine Estimated GFR BUN/Creatinine Ratio Glucose Calcium Total Bilirubin AST ALT Alkaline Phosphatase Total Creatine Kinase CK-MB (CK-2) CK-MB (CK-2) Rel Index Troponin I Total Protein Albumin Globulin Albumin/Globulin Ratio SARS-CoV-2 (PCR) Negative Assessment & Plan Assessment & Plan narrative: Mr. Cotter is a 71M with PMH CVA, CAD s/p stents, HTN, HL who presents with resolving facial numbness and confusion. 1. Possible TIA vs CVA -concern for possible TIA vs CVA -CT head and CT angio head/neck show no acute process -symptoms have improved significantly and is not indicated for TPA -patient takes aspirin/plavix and will continue both, along with continue statin -NIH q4 -ordered PT/OT and speech therapy -swallow screen ordered 2. 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 Transaminitis, acute -patient denies abdominal symptoms -ordered for hepatitis serologies -ordered CT abdomen/pelvis 3. History of CAD s/p stents -continue aspirin, statin 4. Hypertension -for now as patient has likely had acute cva allow for permissive hypertension 5. Hyperlipidemia -continue statin 6.. Depression -continue sertraline CODE: DNR Proxy: Wander Cotter, son I have utilized all available resources to reconcile patient's home medications Time Spent With Patient Critical Care time: I spent a total of [] minutes of critical care time on this patient's care today; this time is exclusive of procedural time.
[2021-09-20 07:38] LABS: C-Reactive Protein Quant 3.2 mg/dL (<1.0)
[2021-09-20 07:39] LABS: Erythrocyte Sedimentation Rate 68 MM/HR (0-15)
[2021-09-20 08:24] LABS: Vitamin B12 535 pg/mL (239-931)
[2021-09-20 08:28] LABS: Hepatitis B Surface Antigen NEGATIVE s/c (NEGATIVE)
[2021-09-20 08:31] LABS: Add Manual Diff / Slide Review NO; Basophils Absolute Auto 300 /uL (0-100); Basophils Percent Auto 4.1 % (0-2); Eosinophils Absolute Auto 1200 /uL (0-450); Eosinophils Percent Auto 18.8 % (2-4); Hematocrit 30.6 % (41-53); Lymphocytes Absolute Auto 1100 /uL (1100-4500); Lymphocytes Percent Auto 18.2 % (25-40); Mean Corpuscular HGB Conc 32.9 % (30-36); Mean Corpuscular Hemoglobin 30.8 PG (26-34); Mean Corpuscular Volume 93.8 fL (80-100); Monocytes Absolute Auto 300 /uL (0-900); Monocytes Percent Auto 5.1 % (3-14); Neutrophils Absolute Auto 3400 /uL (1500-7000); Neutrophils Percent Auto 53.8 % (50-75); Platelet Count 266 X10^3/uL (150-400); Red Blood Cell Count 3.26 X10^6/uL (4.5-5.9); White Blood Cell Count 6.3 X10^3/uL (4.5-11.0)
[2021-09-20 09:03] LABS: HIV 1 & 2 Ab/Ag 4th Gen Combo NEGATIVE (NEGATIVE)
[2021-09-20] MEDS: ASPIRIN EC 81 MG TABLET PO (09:08)
[2021-09-20] MEDS: ENOXAPARIN 40 MG/0.4 ML SYRINGE SUBCUT (09:09)
[2021-09-20] MEDS: CLOPIDOGREL 75 MG TABLET PO (09:09)
--- NOTE | 2021-09-20 09:14 | ST.IPSCREEN ---
Pt seen for sp/swallow screen. Nursing reports pt is back to baseline. Pt's son confirmed that pt is at baseline and back to himself. No ST indicated at this time.
--- NOTE | 2021-09-20 10:26 | DI.RAD.S_ITS ---
PROCEDURE: XR CHEST 1V INDICATIONS: +eosinophilia, evidence to suggest churg dorita? TECHNIQUE: One view of the chest was acquired. COMPARISON: , CR, XR CHEST 1V, 10/01/2020, 11:16. FINDINGS: Surgical changes and devices: None. Lungs and pleura: Lungs are clear. No pleural effusions or pneumothorax. Mediastinum: Mediastinal contours appear normal. Heart size is normal. Bones and chest wall: Chronic left 9th rib fracture. No suspicious bony lesions. Overlying soft tissues appear unremarkable. IMPRESSION: No acute cardiopulmonary disease process. Dictated by: Naida Quick MD, PhD on 09/20/2021 at 11:06 Approved by: Naida Quick MD, PhD on 09/20/2021 at 11:07
[2021-09-20] MEDS: LEVOTHYROXINE 125 MCG TABLET PO (10:35)
[2021-09-20] MEDS: SERTRALINE 50 MG TABLET PO (10:35)
[2021-09-20] MEDS: METOPROLOL ER 50 MG TABLET PO (10:35)
--- NOTE | 2021-09-20 10:58 | PC.NURSE ---
Pt to MRI at 1040. Pt is A&Ox4 and continues to be absent of a facial droop.
[2021-09-20 11:01] LABS: UR Morphine/Opiate cutoff 300 Negative (Negative); Ur Creatinine Normal (Normal); Ur Specific Gravity Normal (Normal); Urine Amphetamines Negative (Negative); Urine Barbiturates Negative (Negative); Urine Benzodiazepines Negative (Negative); Urine Cocaine Negative (Negative); Urine MDMA Negative (Negative); Urine Methadone Negative (Negative); Urine Methamphetamines Negative (Negative); Urine Oxycodone Negative (Negative); Urine Phencyclidine Negative (Negative); Urine Tetrahydrocannabinol Positive (Negative); Urine Tricyclic Antidepressant Negative (Negative); Urine pH Normal (Normal)
[2021-09-20 12:56] LABS: BUN Creatinine Ratio 21.7 (6-22); Blood Urea Nitrogen 20 mg/dL (9-20); Calcium 9.1 mg/dL (8.4-10.2); Carbon Dioxide 25 mmol/L (22-32); Chloride 108 mmol/L (98-107); Estimated Glomerular Filt Rate > 60.0 mL/min (>60); Glucose 78 mg/dL (80-110); HEMOLYSIS < 15 (0-50); Magnesium 2.3 mg/dL (1.6-2.3); Sodium 137 mmol/L (137-145)
--- NOTE | 2021-09-20 13:00 | PT-IP ANOTE ---
checked in the ER and pt still in the ER and in the midst of transferring the acute floor. nurse informed informed PT. will check on pt in the pm once pt is up on the acute floor.
[2021-09-20 13:17] LABS: Hematocrit 32.5 % (41-53); Hemoglobin 10.8 g/dL (13.5-17.5); Mean Corpuscular HGB Conc 33.4 % (30-36); Mean Corpuscular Hemoglobin 31.3 PG (26-34); Mean Corpuscular Volume 93.7 fL (80-100); Platelet Count 259 X10^3/uL (150-400); Red Blood Cell Count 3.47 X10^6/uL (4.5-5.9); Red Cell Distribution Width 17.3 % (11.6-14.8)
[2021-09-20 14:53] LABS: COVID19 -Nasal RAPID Negative (Negative)
--- NOTE | 2021-09-20 15:25 | OT.IP.EVAL ---
Past Medical History (Last Reviewed 09/20/21 @ 07:44 by Noah Burch MD) Hypertension Occupational Therapy Inpatient Evaluation/Re-Eval M1 PT/OT-IP Prior Functional Status Start: 09/20/21 18:12 Freq: NEEDED Status: Active Protocol: Document 09/20/21 14:57 [facility] (Rec: 09/20/21 18:30 [facility] [id number]) Medical Review Prior Functional Status Medical History Reviewed Yes Communication able to make needs known Mobility and Gait pt admitted for CVA last Aug 2021 and pt stated that he went to acute rehab and went home afterwards. stated that he has just been home for ~ 1- 2 weeks. Pt states at rehab was able to walk 100ft with someone assisting to gold onto the gait belt . But as he got home was not moving as much and now his sons just mainly transfer him to the 4ww roll to the toilet and transfer there and back to the hospital Activities of Daily Living and IADL's Pt states mainly just able to eat and do grooming needs after set-up. Pt states needs assist for all dressing, toileting, and bathing needs. Prior Functional Level (Other details) Pt states that he is mainly just in the hospital bed at home and that his sons alternate to help transfer him and change him if he is soiled while in bed. Social History Household Members children Number of Floors (Floors) Two Floors Number of Stairs To Enter/Railing? pt stays on first level of the house and no steps to enter Home Environment Standard Height Toilet,Tub/ Shower Home Equipment Front Wheel Walker,Bedside Commode,Shower Seat with Backrest,Hand Held Shower Additional Social History Comment pt stated that he has an adjustable bed M2 OT-IP Current Condition Start: 09/20/21 18:12 Freq: Status: Active Protocol: Document 09/20/21 14:57 [facility] (Rec: 09/20/21 18:30 [facility] [id number]) Occupational Therapy Current Condition Current Condition Evaluation Date 09/20/21 Treatment Diagnosis TIA, late effect CVA, decreased mobility Diagnosis Onset Date 09/20/21 M3 OT- IP Subjective and Pain Start: 09/20/21 18:12 Freq: Status: Active Protocol: Document 09/20/21 14:57 [facility] (Rec: 09/20/21 18:30 [facility] [id number]) OT- Subjective Occupational Therapy Visit Type Type Initial Evaluation Visit Start Time 14:57 Visit Stop Time 15:25 Total Visit Minutes 28 Occupational Therapy Visit Comments Patient Comments Pt agreed to work with OT and very tearful. Patient/Caregiver Goals TO get better. OT Pain Assessment Pain When Pain Assessed At Rest Pain Present Pain Present Denied Pain M4 OT- IP ADL's Start: 09/20/21 18:12 Freq: Status: Active Protocol: Document 09/20/21 14:57 [facility] (Rec: 09/20/21 18:30 [facility] [id number]) OT [id number] Comments OT Self-Feeding Comments NOt at meal time. OT ADL-Grooming Comments OT Grooming Comments Pt able to wash his face after set-up. OT ADL-Oral Care Comments Oral Care Comments Pt not wanting to perform at this time. OT ADL-Dressing General Eval Lower Body Dressing Ability Maximum Assistance OT ADL-Toileting Comments OT Toileting Comments Pt not having to go. OT ADL-Bathing Comments OT Bathing Comments NOt performed. M5 OT- IP IADL's Start: 09/20/21 18:12 Freq: Status: Active Protocol: Document 09/20/21 14:57 [facility] (Rec: 09/20/21 18:30 [facility] [id number]) OT-Instrumental Activities of Daily Living Home Safety Awareness Awareness of Need for Assistance at Home Good Awareness Medication Management Medication Management Caregiver Administers Meal Preparation Meal Preparation Caregiver Provides Assist Obstetrics Gyn Obstetrics Gyn Caregiver Provides Assist M6 OT- IP Functional Cognition Start: 09/20/21 18:12 Freq: Status: Active Protocol: Document 09/20/21 14:57 [facility] (Rec: 09/20/21 18:30 [facility] [id number]) Cognitive Factors Limiting Selfcare Function Cognitive Ability Level of Alertness Alert,Confusional State Patient Orientation Name,Situation Attention Span Ability Capable of Focused Attention, Capable of Sustained Attention Ability to Follow Commands Able to Follow One Step Commands with Increased Time, Able to Follow One Step Commands with Repetition Cognitive Comments Cognitive Assessment Comments Pt thinking he was in the hospital at [place]. Pt very tearful at this time as upset on how is doing. OT- Vision and Hearing OT- Hearing Assessment OT- Hearing Assessment WFL OT- Vision Assessment Visual Acuity Glasses For Reading M7 OT- IP Mobility and Balance Start: 09/20/21 18:12 Freq: Status: Active Protocol: Document 09/20/21 14:57 [facility] (Rec: 09/20/21 18:30 [facility] [id number]) OT- Bed Mobility Assessment Rolling Type of Rolling Roll to Right Level of Assistance Maximum Assistance,Head of Bed Elevated Supine to Sit Supine to Sit Assist Maximum Assistance,1 Person Assistance Sit to Supine Sit to Supine Assist Maximum Assistance Scooting Scooting to Edge of Bed Moderate Assistance OT-Transfer Assessment Sit to and From Stand Sit to and from Stand Maximum Assistance Comments Mobility Comments Pt MAXA to help get upright to edge of the bed with HOB up. Pt needing MAX AX 1 to stand and able to take a few side steps to the head of the bed and assist back to supine. OT- Balance Assessment Sitting Balance and Reactions Static Sitting Balance Ability Poor Dynamic Sitting Balance Ability Poor Standing Balance and Reactions Static Standing Balance Ability Poor Dynamic Standing Balance Ability Poor Comments Other Balance Tests/Deviations/Treatment Pt needing MODA to sit upright : as he tends to lean posteriorly. M8 OT- IP Objective Assessments Start: 09/20/21 18:12 Freq: Status: Active Protocol: Document 09/20/21 14:57 [facility] (Rec: 09/20/21 18:30 [facility] [id number]) OT Gross Range of Motion Upper Extremity Range of Motion Assessment Within Functional Limits OT Strength Comments Strength Comments BUE RUE 5/5, LUE 4-/5 to 4/5 from proximal to distal. OT- Coordination Assessment Upper Extremity Finger to Nose Test Left UE Impaired OT Sensation Assessment Comments Summary Comments To further assess sensation needs tomorrow. Pt has decreased awarness of LUE for position in space. M9 OT- IP Assessment and Plan Start: 09/20/21 18:12 Freq: Status: Active Protocol: Document 09/20/21 14:57 [facility] (Rec: 09/20/21 18:30 [facility] [id number]) OT Summary Assessment and Plan Potential Rehabilitation Potential Fair/good Analytic Complexity at Evaluation Moderate Summary OT Impairments Strength,Balance,Coordination, Functional Cognition, Functional Mobility,Self- Feeding,Grooming,Dressing, Toileting,Bathing,Toilet Transfers,Shower Transfers, Activity Tolerance Progress Towards Goals Slow Progress due to Medical Issues,Slow Progress due to Activity Tolerance,Slow Progress due to Cognition Assessment Summary Pt MOD complexity and here due to TIA and latent effect of recent CVA. Pt main barriers are decreased balance, position in space, and now needing extensive assist for all needs. Pt is motivated to get better and would benefit from skilled rehab. Goals Self-Feeding Goal Independent Grooming Goal Independent Dressing Goal Minimal Assistance Toileting Goal Minimal Assistance Bathing Goal Moderate Assistance Toilet Transfer Goal Contact Guard Assistance Shower Transfer Goal Contact Guard Assistance Days to Meet Goals 30 Frequency of Treatment Frequency Of Treatment Once a Day Treatment Plan OT Treatment Plan ADL Training,Functional Cognition Training,Functional Mobility,Patient/Family Education,Discharge Planning Other Treatment Recommendations and Next Transfer to [facility] [place] with MODA X 2 Treatment Focus Discharge Recommendations OT Discharge Recommendations SNF Rehab
--- NOTE | 2021-09-20 15:41 | PT.IIE ---
Medical History (Last Reviewed 09/20/21 @ 07:44 by Noah Burch MD) Hypertension Physical Therapy Inpatient Evaluation/Re-Eval M1 PT/OT-IP Prior Functional Status Start: 09/20/21 17:34 Freq: NEEDED Status: Active Protocol: Document 09/20/21 15:41 [facility] (Rec: 09/20/21 17:46 [facility] [id number]) Medical Review Prior Functional Status Medical History Reviewed Yes Communication able to make needs known Mobility and Gait pt admitted for CVA last Aug 2021 and pt stated that he went to SNF and went home afterwards. stated that he has just been home for ~ 1-2 weeks. pt stated that his son assists him with transfers using a FWW and able to ambulate to the toilet with son assisting but stated that he shuffles. stated that he mostly use the urinal. Social History Household Members children Number of Floors (Floors) Two Floors Number of Stairs To Enter/Railing? pt stays on first level of the house and no steps to enter Home Environment Standard Height Toilet,Tub/ Shower Home Equipment Front Wheel Walker,Bedside Commode,Shower Seat with Backrest,Hand Held Shower Additional Social History Comment pt stated that he has an adjustable bed M2 PT-IP Current Condition Start: 09/20/21 17:34 Freq: NEEDED Status: Active Protocol: Document 09/20/21 15:41 [facility] (Rec: 09/20/21 17:46 [facility] [id number]) Physical Therapy Current Condition Current Condition Evaluation Date 09/20/21 Treatment Diagnosis TIA; late effects of CVA; difficulty in walking Onset Date 09/20/21 M3 PT-IP Subjective Start: 09/20/21 17:34 Freq: NEEDED Status: Active Protocol: Document 09/20/21 15:41 [facility] (Rec: 09/20/21 17:46 AB [email or web address]) Subjective Physical Therapy Visit Type Type Initial Evaluation Visit Start Time 15:41 Visit Stop Time 16:15 Total Visit Minutes 34 Number of [employer] Visits 0 Physical Therapy Visit Comments Patient Comments agreeable to do PT M4 PT-IP Mobility and Gait Start: 09/20/21 17:34 Freq: NEEDED Status: Active Protocol: Document 09/20/21 15:41 [facility] (Rec: 09/20/21 17:46 AB [id number]) PT-Bed Mobility Assessment Supine to Sit Supine to Sit Maximum Assistance,1 Person Assistance Sit to Supine Sit to Supine Maximum Assistance,1 Person Assistance PT-Transfer Assessment Sit to and From Stand Sit to and from Stand Maximum Assistance,1 Person Assistance,2 Person Assistance ,Use of Upper Extremities Equipment Transfer Assistive Device Gait Belt,Front Wheeled Walker Orthotic/Prosthetic Devices or Brace: No Comments Mobility Comments BP: 177/86. pt completed supine to sit max A and cues using bed rail and HOB elevated. pt sat on EOB min A. c/o dizziness. BP: 166/77. completed sit to stand max A x 1-2 and max cues and pt was able to take steps sideways towards HOB max A x 1-2. attempted to ambulate more and pt took 1 step forward using FWW max A x 1-2 but pt requested to go back to bed. completed sit to supine max A and max cues. positioned pt in bed. call light and table placed within reach. Gait Assessment Gait Gait Assistance Required: Maximum Assistance,1 Person Assist,2 Person Assist Distance (Feet) 3 Comments Gait Comments side stepping towards HOB PT-Balance Assessment Sitting Balance and Reactions Static Sitting Balance Ability Fair Dynamic Sitting Balance Ability Fair Standing Balance and Reactions Static Standing Balance Ability Poor Dynamic Standing Balance Ability Poor Device Used FWW M5 PT-IP Objective Assessments Start: 09/20/21 17:34 Freq: NEEDED Status: Active Protocol: Document 09/20/21 15:41 [facility] (Rec: 09/20/21 17:46 AB [id number]) Orientation Orientation/Cognition Level of Alertness Confusional State Orientation Name Language Function Ability No Deficits Noted Safety Awareness Decreased Safety Awareness Memory Description Short Term Impaired Gross Range of Motion Lower Extremity ROM Assessment Within Functional Limits Strength Lower Extremity Strength Assessment Left Impaired Hip 3/5 Knee 3+/5 Sensation Assessment Sensation Gross Sensation Left LE Impaired Sensation Description Numbness Comments Sensation Comments c/o L LE numbness Muscle Tone Muscle Tone WNL Yes M6 PT-IP Treatment Start: 09/20/21 17:34 Freq: NEEDED Status: Active Protocol: Document 09/20/21 15:41 [facility] (Rec: 09/20/21 17:46 [facility] [id number]) Physical Therapy Treatment Education Education Provided Safety M7 PT-IP Assessment and Plan Start: 09/20/21 17:34 Freq: NEEDED Status: Active Protocol: Document 03/11/22 15:41 [facility] (Rec: 09/20/21 17:46 [facility] [id number]) PT Summary Assessment and Plan Potential Rehabilitation Potential Fair Status of Condition at Evaluation Evolving Summary Impairments Pain,ROM,Strength,Balance, Coordination,Sensation,Tone, Cognition,Bed Mobility, Transfers,Gait,Activity Tolerance Assessment Summary pt requiring max A x 1-2 with mobility using FWW. pt will require SNF rehab to improve strength and mobility. will continue to assess progress. Goals Bed Mobility Goal Standby Assistance Transfer Goal Standby Assistance,Front Wheeled Walker Gait Goal Standby Assistance,Front Wheel Walker Gait Distance 100 Days to Meet Goals 10 Frequency of Treatment Frequency Of Treatment Once a Day Treatment Plan Physical Therapy Treatment Plan Bed Mobility Training,Transfer Training,Gait Training, Therapeutic Exercise,Balance Retraining,Discharge Planning, Hot or Cold Pack,Neuromuscular Re-ed,Coordination Retraining ,Manual Therapy Precautions Other Precautions falls Recommendations To Nursing Amount of Assist Needed 2 Person Assist Discharge Recommendations PT Discharge Recommendations SNF Rehab Transportation Needs at Discharge Wheelchair/Cabulance
--- NOTE | 2021-09-20 16:41 | PC.NURSE ---
Pt arrived from ED to Room 220 this afternoon. He is A&Ox3, and agreeable to completing Admission assessment, however becomes agitated with lab arriving to draw his blood during his meal. He is convinced to allow them to draw his blood, but when his PIV site is found to be compromised. He has a very slight L sided facial droop, speach is clear, and tongue is mid line. He does state that he has baseline weakness in his L arm as well as numbness and numbness and weakness to Left lower leg. He refuses RN to replace his PIV. He remains NSB on telemetry and slightly hypertensive with SBP in 150's. He is angry with staff and asks Is this a training facility? I'm so sick of this place. Later he becomes tearful and states I'm useless. He is assisted to clean incontinent urine. PT at bedside this afternoon and patient is agreeable to participate. Call light within reach, bed alarm in place. Continuous monitoring. notified of his refusal to allow for IV placement.
[2021-09-20] MEDS: ATORVASTATIN 20 MG TABLET 80 MG PO (21:21)
[2021-09-20] MEDS: HYDROCODONE/ACET 10/325 TABLET 1 TAB PO (21:21)
[2021-09-20] MEDS: ZOLPIDEM 5 MG TABLET PO (22:01)
[2021-09-21] VITALS (8 sets, daily range): BP systolic 113–146; BP diastolic 64–70; PULSE 41–51; RESP 17–20; TEMP 36.6–37; O2SAT 95–100
[2021-09-21 02:22] LABS: Hepatitis B Core Antibody Negative (Negative)
[2021-09-21] MEDS: HYDROCODONE/ACET 10/325 TABLET 1 TAB PO ×4 (06:17→19:02)
[2021-09-21] MEDS: LEVOTHYROXINE 125 MCG TABLET PO (06:17)
[2021-09-21 07:12] LABS: Alanine Aminotransferase 110 IU/L (<50); Albumin 3.3 g/dL (3.5-5.0); Albumin Globulin Ratio 0.9 (1.0-2.8); Alkaline Phosphatase 925 U/L (38-126); Aspartate Aminotransferase 119 IU/L (17-59); BUN Creatinine Ratio 27.1 (6-22); Bilirubin Total 0.4 mg/dL (0.2-1.3); Bilirubin Unconjugated 0.2 mg/dL (0.0-1.1); Blood Urea Nitrogen 23 mg/dL (9-20); Calcium 9.1 mg/dL (8.4-10.2); Carbon Dioxide 27 mmol/L (22-32); Chloride 109 mmol/L (98-107); Estimated Glomerular Filt Rate > 60.0 mL/min (>60); Globulin 3.6 g/dL (1.7-4.1); Glucose 90 mg/dL (80-110); HEMOLYSIS < 15 (0-50); Potassium 3.9 mmol/L (3.4-5.1); Sodium 137 mmol/L (137-145); Total Protein 6.9 g/dL (6.3-8.2)
--- NOTE | 2021-09-21 08:15 | P.PN_ITS ---
Subjective Subjective Date Patient Seen: 09/21/21 Interval history: He is seen in his room today to follow-up his elevated liver enzymes and varying neurological symptoms. The hepatitis C test is pending. The hepatitis-B testing is negative. His heart rate is 69. His vitals are otherwise stable. The AST has dropped from 147 down to 119. The ALT has dropped from 08/11 6 down to 110. Alkaline phosphatase has dropped from 1160 down to 925. His liver CT is largely negative but is suggestive of possible hepatitis changes. He is quite disgruntled with his hospital stay so far and has many somewhat vague complaints. Initially he tells me that he feels ?1010.? His affect is quite flat and he is sure that he is getting ?bad service. ? Exam Vital Signs (past 8 hours): - 09/21/21 06:29 Temperature 97.8 F Pulse Rate 49 L Respiratory Rate 17 Blood Pressure 120/65 Pulse Oximetry 98 Oxygen Delivery Method Room Air Oxygen Flow Rate 0 Narrative Exam Narrative: He is alert and oriented x3. He is quite disgruntled with his hospital stay so far and has many somewhat vague complaints. Initially tells me that he feels ?1010.? His affect is quite flat and he is sure that he is getting ?bad service. ? Heart is bradycardic with regular rhythm and no murmur Lungs are clear to auscultation bilaterally Abdomen is soft, bowel sounds positive, nontender, no organomegaly Extremities have no ankle edema Neurologic exam: Right foot strength is 1/5. Right hand strength is 4/5. Objective Labs Result Diagrams: 09/20/21 13:00 09/21/21 05:28 Labs: Laboratory Results - last 24 hr 09/20/21 09/20/21 09/20/21 06:44 06:44 06:44 WBC RBC Hgb Hct MCV MCH MCHC RDW Plt Count Neut % (Auto) Lymph % (Auto) Lipscomb % (Auto) Eos % (Auto) Baso % (Auto) Neut # (Auto) Lymph # (Auto) Lipscomb # (Auto) Eos # (Auto) Baso # (Auto) Sodium Potassium Chloride Carbon Dioxide BUN Creatinine Estimated GFR BUN/Creatinine Ratio Glucose Calcium Magnesium Total Bilirubin Conjugated Bilirubin Unconjugated Bilirubin AST ALT Alkaline Phosphatase Total Protein Albumin Globulin Albumin/Globulin Ratio Vitamin B12 535 U Opiates 300ng/mL cut Ur Oxycodone Screen Urine Methadone Screen Ur Barbiturates Screen U Tricyclic Antidepress Ur Phencyclidine Scrn Ur Amphetamines Screen U Methamphetamines Scrn Ur MDMA Scrn (Ecstasy) U Benzodiazepines Scrn Urine Cocaine Screen U Marijuana (THC) Screen SARS-CoV-2 (PCR) Hep Bs Antigen Negative Hep B Core Total Ab Negative HIV 1&2 Ab/P24 Ag 4thGn 09/20/21 09/20/21 09/20/21 06:44 06:44 06:44 WBC 6.3 RBC 3.26 L Hgb 10.0 L Hct 30.6 L MCV 93.8 MCH 30.8 MCHC 32.9 RDW 17.0 H Plt Count 266 Neut % (Auto) 53.8 Lymph % (Auto) 18.2 L Lipscomb % (Auto) 5.1 Eos % (Auto) 18.8 H Baso % (Auto) 4.1 H Neut # (Auto) 3400 Lymph # (Auto) 1100 Lipscomb # (Auto) 300 Eos # (Auto) 1200 H Baso # (Auto) 300 H Sodium 137 Potassium 4.0 Chloride 108 H Carbon Dioxide 25 BUN 20 Creatinine 0.92 Estimated GFR > 60.0 BUN/Creatinine Ratio 21.7 Glucose 78 L Calcium 9.1 Magnesium 2.3 Total Bilirubin Conjugated Bilirubin Unconjugated Bilirubin AST ALT Alkaline Phosphatase Total Protein Albumin Globulin Albumin/Globulin Ratio Vitamin B12 U Opiates 300ng/mL cut Ur Oxycodone Screen Urine Methadone Screen Ur Barbiturates Screen U Tricyclic Antidepress Ur Phencyclidine Scrn Ur Amphetamines Screen U Methamphetamines Scrn Ur MDMA Scrn (Ecstasy) U Benzodiazepines Scrn Urine Cocaine Screen U Marijuana (THC) Screen SARS-CoV-2 (PCR) Hep Bs Antigen Hep B Core Total Ab HIV 1&2 Ab/P24 Ag 4thGn Negative 09/20/21 09/20/21 09/20/21 10:30 13:00 14:20 WBC 6.0 RBC 3.47 L Hgb 10.8 L Hct 32.5 L MCV 93.7 MCH 31.3 MCHC 33.4 RDW 17.3 H Plt Count 259 Neut % (Auto) Lymph % (Auto) Lipscomb % (Auto) Eos % (Auto) Baso % (Auto) Neut # (Auto) Lymph # (Auto) Lipscomb # (Auto) Eos # (Auto) Baso # (Auto) Sodium Potassium Chloride Carbon Dioxide BUN Creatinine Estimated GFR BUN/Creatinine Ratio Glucose Calcium Magnesium Total Bilirubin Conjugated Bilirubin Unconjugated Bilirubin AST ALT Alkaline Phosphatase Total Protein Albumin Globulin Albumin/Globulin Ratio Vitamin B12 U Opiates 300ng/mL cut Negative Ur Oxycodone Screen Negative Urine Methadone Screen Negative Ur Barbiturates Screen Negative U Tricyclic Antidepress Negative Ur Phencyclidine Scrn Negative Ur Amphetamines Screen Negative U Methamphetamines Scrn Negative Ur MDMA Scrn (Ecstasy) Negative U Benzodiazepines Scrn Negative Urine Cocaine Screen Negative U Marijuana (THC) Screen Positive H SARS-CoV-2 (PCR) Negative Hep Bs Antigen Hep B Core Total Ab HIV 1&2 Ab/P24 Ag 4thGn 09/21/21 05:28 WBC RBC Hgb Hct MCV MCH MCHC RDW Plt Count Neut % (Auto) Lymph % (Auto) Lipscomb % (Auto) Eos % (Auto) Baso % (Auto) Neut # (Auto) Lymph # (Auto) Lipscomb # (Auto) Eos # (Auto) Baso # (Auto) Sodium 137 Potassium 3.9 Chloride 109 H Carbon Dioxide 27 BUN 23 H Creatinine 0.85 Estimated GFR > 60.0 BUN/Creatinine Ratio 27.1 H Glucose 90 Calcium 9.1 Magnesium Total Bilirubin 0.4 Conjugated Bilirubin 0.0 Unconjugated Bilirubin 0.2 AST 119 H ALT 110 H Alkaline Phosphatase 925 H Total Protein 6.9 Albumin 3.3 L Globulin 3.6 Albumin/Globulin Ratio 0.9 L Vitamin B12 U Opiates 300ng/mL cut Ur Oxycodone Screen Urine Methadone Screen Ur Barbiturates Screen U Tricyclic Antidepress Ur Phencyclidine Scrn Ur Amphetamines Screen U Methamphetamines Scrn Ur MDMA Scrn (Ecstasy) U Benzodiazepines Scrn Urine Cocaine Screen U Marijuana (THC) Screen SARS-CoV-2 (PCR) Hep Bs Antigen Hep B Core Total Ab HIV 1&2 Ab/P24 Ag 4thGn [facility] Medical History Hypertension Social History household members: children Smoking Status: Current every day smoker alcohol intake: current Assessment & Plan Assessment & Plan narrative: Mr. Cotter is a 71M with PMH CVA, CAD s/p stents, HTN, HL who presents with resolving facial numbness and confusion. 1. Possible TIA vs CVA -concern for possible TIA vs CVA -CT head and CT angio head/neck show no acute process -symptoms have improved significantly and is not indicated for TPA -patient takes aspirin/plavix and will continue both -Stopped Atorvastatin due to elevated LFT -NIH q4 -ordered PT/OT and speech therapy -swallow screen ordered 2. 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 Transaminitis, acute -patient denies abdominal symptoms -Hepatitis A antibody positive. Unclear if Immunization related, prior infection, current infection? -Hep B ab and surface Antigen negative. Hepatitis C studies pending -CT abdomen/pelvis suggests hepatitis 3. History of CAD s/p stents -continue aspirin, stopped Atorvastatin due to elevated LFT 4. Hypertension -for now as patient has likely had acute cva allow for permissive hypertension 5. Hyperlipidemia -Holding statin 6.. Depression -continue sertraline CODE: DNR Proxy: Wander Cotter, son Time Spent With Patient Critical Care time: I spent a total of [] minutes of critical care time on this patient's care today; this time is exclusive of procedural time. Quality VTE Deep Vein Thrombosis/Pulmonary Embolism Present on Admission: No
[2021-09-21 08:59] LABS: Hepatitis A Ab IgM Negative (Negative); Hepatitis A Ab Total Positive (Negative); Hepatitis B Surf Ab Qualitativ Non Reactive (.)
--- NOTE | 2021-09-21 09:45 | PT.IPTN ---
Physical Therapy Treatment Note M2 PT-IP Current Condition Start: 09/20/21 17:34 Freq: NEEDED Status: Active Protocol: Document 09/20/21 15:41 AB (Rec: 09/20/21 17:46 AB [email or web address]) Physical Therapy Current Condition Current Condition Evaluation Date 09/20/21 Treatment Diagnosis TIA; late effects of CVA; difficulty in walking Onset Date 09/20/21 M3 PT-IP Subjective Start: 09/20/21 17:34 Freq: NEEDED Status: Active Protocol: Document 09/21/21 09:45 AB (Rec: 09/21/21 12:36 AB [email or web address]) Subjective Physical Therapy Visit Type Type Treatment Note Visit Start Time 09:45 Visit Stop Time 10:17 Total Visit Minutes 32 Number of COMMUNITY ORGANIZATION AIDE Visits 0 Physical Therapy Visit Comments Patient Comments agreed to do PT M4 PT-IP Mobility and Gait Start: 09/20/21 17:34 Freq: NEEDED Status: Active Protocol: Document 09/21/21 09:45 AB (Rec: 09/21/21 12:36 AB [email or web address]) PT-Bed Mobility Assessment Supine to Sit Supine to Sit Minimal Assistance Sit to Supine Sit to Supine Standby Assistance PT-Transfer Assessment Sit to and From Stand Sit to and from Stand Moderate Assistance,Maximum Assistance,Use of Upper Extremities Equipment Transfer Assistive Device Gait Belt,Front Wheeled Walker Orthotic/Prosthetic Devices or Brace: No Transfers Transfer Destination Bedside Commode Transfer Technique Stand Step Pivot Transfer Ability Level of Assist Moderate Assistance,Maximum Assistance,1 Person Assistance ,Use of Upper Extremities Comments Mobility Comments pt agreed to do PT and stated that he needs to use the bed dunaway. encouarged pt to use the toilet or at least the bedside commode. pt initially refused and wants the bed dunaway but eventually agreed to use the bedside commode. completed supine to sit min A and cues. completed sit to stand mod to max A and cues. able to take steps ~ 2 ft to transfer to bedside commode using FWW mod to max A and max cues. completed sit to stand from bedside commode mod to max A and cues and ambulated towards HOB ~ 3 ft mod to max A and max cues. pt refused further ambulation. completed sit to supine min A and cues. positioned in bed. pt refused to sit on the chair and stated that the chair is not comfortable. pt agreed to do LE exercises in bed. completed heels slides with manual resistance, SLR with 5 sec hold, ankle PF/DF ( LLE PROM/AAROM), abduction/ addution isometrics with manual resistance 5-10 sec hold. positioned pt in bed. call light and table placed within reach. Gait Assessment Gait Gait Assistance Required: Moderate Assistance,Maximum Assistance Distance (Feet) 3 Able to Maintain Weight Bearing Status No During Gait Assistive Devices Assistive Device Gait Belt,Front Wheeled Walker Orthotic/Prosthetic Devices or Brace: No Gait Deviations General Gait Pattern Decreased Stride Length, Decreased Feet Clearance,Step- to Gait Factors Limiting Gait Function Factors Limiting Gait Function Decreased Activity Tolerance, Decreased Strength,Difficulty Following Directions,Poor Balance,Poor Safety Awareness Comments Gait Comments steps during transfers using FWW M5 PT-IP Objective Assessments Start: 09/20/21 17:34 Freq: NEEDED Status: Active Protocol: Document 09/20/21 15:41 AB (Rec: 09/20/21 17:46 AB [email or web address]) Orientation Orientation/Cognition Level of Alertness Confusional State Orientation Name Language Function Ability No Deficits Noted Safety Awareness Decreased Safety Awareness Memory Description Short Term Impaired Gross Range of Motion Lower Extremity ROM Assessment Within Functional Limits Strength Lower Extremity Strength Assessment Left Impaired Hip 3/5 Knee 3+/5 Sensation Assessment Sensation Gross Sensation Left LE Impaired Sensation Description Numbness Comments Sensation Comments c/o L LE numbness Muscle Tone Muscle Tone WNL Yes M6 PT-IP Treatment Start: 09/20/21 17:34 Freq: NEEDED Status: Active Protocol: Document 09/21/21 09:45 AB (Rec: 09/21/21 12:36 AB [email or web address]) Physical Therapy Treatment Exercises Exercises Heel Slides Education Education Provided Safety Other Treatments Other Treatment Performed pls refer to mobiltiy section for exercise details M7 PT-IP Assessment and Plan Start: 09/20/21 17:34 Freq: NEEDED Status: Active Protocol: Document 09/21/21 09:45 AB (Rec: 09/21/21 12:36 AB [email or web address]) PT Summary Assessment and Plan Potential Rehabilitation Potential Fair Summary Impairments Pain,ROM,Strength,Balance, Coordination,Sensation,Tone, Cognition,Bed Mobility, Transfers,Gait,Activity Tolerance Progress Towards Goals Slow Progress due to Activity Tolerance Assessment Summary pt requiring mod to max A with mobility using FWW and unable to tolerate much activity. pt will require SNF rehab to improve strength and mobiltiy independence. Goals Bed Mobility Goal Standby Assistance Transfer Goal Standby Assistance,Front Wheeled Walker Gait Goal Standby Assistance,Front Wheel Walker Gait Distance 100 Days to Meet Goals 10 Frequency of Treatment Frequency Of Treatment Once a Day Treatment Plan Physical Therapy Treatment Plan Bed Mobility Training,Transfer Training,Gait Training, Therapeutic Exercise,Balance Retraining,Discharge Planning, Hot or Cold Pack,Neuromuscular Re-ed,Coordination Retraining ,Manual Therapy Precautions Other Precautions falls Recommendations To Nursing Amount of Assist Needed 2 Person Assist Discharge Recommendations PT Discharge Recommendations SNF Rehab Transportation Needs at Discharge Wheelchair/Cabulance
[2021-09-21] MEDS: ENOXAPARIN 40 MG/0.4 ML SYRINGE SUBCUT (10:24)
[2021-09-21] MEDS: METOPROLOL ER 50 MG TABLET PO (10:24)
[2021-09-21] MEDS: CLOPIDOGREL 75 MG TABLET PO (10:26)
[2021-09-21] MEDS: SERTRALINE 50 MG TABLET PO (10:26)
[2021-09-21] MEDS: ASPIRIN EC 81 MG TABLET PO (10:26)
--- NOTE | 2021-09-21 13:43 | OT.IPNOTE ---
Pt states did not sleep well and just wanting to use the urinal in bed. Pt states has 8/10 back pain and requesting pain medications, nursing notified.
--- NOTE | 2021-09-21 16:53 | CM.DANOTE ---
Addendum entered by Jalyn Keen 09/21/21 17:05: PT/OT evaluations currently pending. Original Note: DCP/Assessment: Reviewed chart. Patient is a 71yr old male admitted to [facility] with TIA like symptoms. PCP is Dr. Georges. Primary payor is 1)[employer] ADV. Met with patient explained role. Patient sleepy at time of visit. Patient reports that he resides with his son in [place]. Patient drives at baseline. Patient unclear at this time if he will have needs. Patient most likely would benefit from PT evaluation. CM team follow closely. [facility] Discharge Planning/Care Management CM Discharge Assessment Start: 09/21/21 16:50 Freq: Status: Active Protocol: Document 09/21/21 16:51 LORETO (Rec: 09/21/21 16:53 LORETO [email or web address]) Discharge Planning Assessment Assigned Armature Balancer CHARITY Duque Contact Information Wander Cotter (son) # [phone] Advance Directives? Yes: DNR Advance Directives on File No History Provided By Patient,Family Member,Medical Record Prior Living Arrangements House Household Members children Type of transporation used prior to Drives own vehicle admit Independent with ADL's Yes: Uses walker at baseline Is patient alert and oriented? Yes Caregiver for Another No DME Already Rented / Owned FWW / Walker Comment Pending If patient plan is home with home health No : Has signed face to face form been completed? If patient plan is SNF: Has PASSR been No completed? Review Status In Process Next Review Type Continued Stay Review
--- NOTE | 2021-09-21 18:13 | DI.CT.S_ITS ---
PROCEDURE: CT HEAD/BRAIN WO CON INDICATIONS: Hemorrhagic infarct TECHNIQUE: Noncontrast 4.5 mm thick angled axial sections acquired from the foramen magnum to the vertex, with coronal and sagittal reformats. For radiation dose reduction, the following was used: automated exposure control, adjustment of mA and/or kV according to patient size. COMPARISON: [facility], MR, MR HEAD/BRAIN WO CON, 09/20/2021, 10:40. [facility], CT, CT STROKE, 09/19/2021, 22:27. FINDINGS: Image quality: Excellent. CSF spaces: Basal cisterns are patent. No extra-axial fluid collections. The ventricles are symmetric in size and shape. Brain: No intracranial bleeds or masses. Subtle hypodensities in right frontal lobe deep white matter are seen likely represent patient's known small acute infarcts in these areas. There is cerebral volume loss for age, with resultant ventricular and sulcal prominence. There are extensive periventricular and deep white matter chronic small vessel ischemic changes. There is intracranial internal carotid artery atherosclerosis. Skull and face: Calvarium and visualized facial bones appear intact, without suspicious lesions. Sinuses: Extensive opacification of left paranasal sinuses is again seen and unchanged. IMPRESSION: 1. Involving small infarcts in right frontal lobe. No evidence of intracranial bleed, midline shift or significant mass effect. 2. Diffuse atrophy and moderate to severe chronic small vessel ischemic changes. 3. Chronic appearing paranasal sinusitis. Dictated by: Jose Roberto Lerner M.D. on 09/21/2021 at 19:10 Approved by: Jose Roberto Lerner M.D. on 09/21/2021 at 19:14
[2021-09-21] MEDS: ZOLPIDEM 5 MG TABLET PO (20:36)
[2021-09-22] MEDS: LEVOTHYROXINE 125 MCG TABLET PO (05:37)
[2021-09-22] MEDS: HYDROCODONE/ACET 10/325 TABLET 1 TAB PO ×5 (05:37→21:30)
[2021-09-22 05:40] VITALS: BP 139/57; PULSE 49; RESP 17; TEMP 36.3; O2SAT 98
[2021-09-22 07:30] VITALS: BP 119/65; PULSE 47; RESP 17; TEMP 36.3; O2SAT 99
[2021-09-22] MEDS: ENOXAPARIN 40 MG/0.4 ML SYRINGE SUBCUT (09:02)
[2021-09-22] MEDS: SERTRALINE 50 MG TABLET PO (09:02)
[2021-09-22] MEDS: ASPIRIN EC 81 MG TABLET PO (09:02)
[2021-09-22 09:04] VITALS: BP 119/65; PULSE 48
[2021-09-22] MEDS: CLOPIDOGREL 75 MG TABLET PO (09:04)
[2021-09-22] MEDS: polyethylene glycoL 3350 17 GM POWD.PACK PO (10:50)
[2021-09-22 11:00] VITALS: BP 145/68; PULSE 46; RESP 17; TEMP 36.4; O2SAT 99
--- NOTE | 2021-09-22 14:46 | PM.PN.1 ---
Subjective Subjective Date Patient Seen: 09/22/21 Time Patient Seen: 08:00 Interval history: Today he has no new complaints. The numbness in his hand is stable and at baseline. Exam Vital Signs (past 8 hours): - 09/22/21 07:30 09/22/21 09:04 09/22/21 11:00 Temperature 97.4 F L 97.6 F Pulse Rate 47 L 48 L 46 L Respiratory Rate 17 17 Blood Pressure 119/65 119/65 145/68 H Pulse Oximetry 99 99 Fraction of Inspired Oxygen 0 Oxygen Delivery Method Room Air Oxygen Flow Rate 0 Narrative Exam Narrative: GEN: He is alert and oriented x3.? CV: bradycardic with regular rhythm and no murmur PULM: clear to auscultation bilaterally ABD: soft, bowel sounds positive, nontender, no organomegaly EXT: have no ankle edema Neurologic exam:? Left foot strength is 2/5.?Left hand strength is 4/5. Objective Labs Result Diagrams: 09/20/21 13:00 09/21/21 05:28 Labs: Laboratory Results - last 24 hr 09/20/21 06:44 HCV Quantitation Hcv not detected HCV RNA (PCR) IU log10 TNP Hepatitis C Genotype TNP Ref Test Comments Comment PFSH Medical History Hypertension Social History household members: children Smoking Status: Current every day smoker alcohol intake: current Assessment & Plan Assessment & Plan narrative: Mr. Cotter is a 71M with PMH CVA, CAD s/p stents, HTN, HL who presents with resolving facial numbness and confusion. 1. Possible TIA vs CVA -concern for possible TIA vs CVA -CT head and CT angio head/neck show no acute process -symptoms have improved significantly and is not indicated for TPA -patient takes aspirin/plavix and will continue both -Stopped Atorvastatin due to elevated LFT -NIH q4 -ordered PT/OT and speech therapy -swallow screen ordered 2. 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 Transaminitis, acute, improving -patient denies abdominal symptoms -Hepatitis A antibody positive.? Unclear if Immunization related, prior infection, current infection? -Hep B ab and surface Antigen negative.? Hepatitis C studies pending -CT abdomen/pelvis suggests hepatitis 3. History of CAD s/p stents -continue aspirin, stopped Atorvastatin due to elevated LFT 4. Hypertension -for now as patient has likely had acute cva allow for permissive hypertension 5. Hyperlipidemia -Holding statin 6.. Depression -continue sertraline CODE: DNR Proxy: Wander Cotter, son Time Spent With Patient Critical Care time: I spent a total of [] minutes of critical care time on this patient's care today; this time is exclusive of procedural time. Quality VTE Deep Vein Thrombosis/Pulmonary Embolism Present on Admission: No
--- NOTE | 2021-09-22 15:12 | CM.DPC ---
DCP/continued: Reviewed chart. Patient seen by therapy and SNF currently recommended. Met with patient this AM to discuss plan. Initially, patient thought he would be able to return home with his son. However, patient feels like he is to weak to d/c home. Patient agreeable to short SNF stay if insurance will cover it. Patient has no preference in SNF facilities. Patient also reports that he is not COVID vaccinated. Patient made aware that facility choices limited due to insurance and vaccine status. Placed call to Neema at [facility]. She reports that they might be able to accept tomorrow 09-23-21. Neema requesting clinic be faxed for review. Faxed all requested clinical. PASRR completed. P: CHARITY hopeful that patient will be accepted at [facility] tomorrow if accepted and authorization received. LORETO
--- NOTE | 2021-09-22 15:30 | PT.IPTN ---
Physical Therapy Treatment Note M2 PT-IP Current Condition Start: 09/20/21 17:34 Freq: NEEDED Status: Active Protocol: Document 09/20/21 15:41 AB (Rec: 09/20/21 17:46 AB [id number]) Physical Therapy Current Condition Current Condition Evaluation Date 09/20/21 Treatment Diagnosis TIA; late effects of CVA; difficulty in walking Onset Date 09/20/21 M3 PT-IP Subjective Start: 09/20/21 17:34 Freq: NEEDED Status: Active Protocol: Document 09/22/21 15:30 AW (Rec: 09/22/21 15:45 AW [id number]) Subjective Physical Therapy Visit Type Type Treatment Note Visit Start Time 15:15 Visit Stop Time 15:30 Total Visit Minutes 15 Number of ARCHITECTURE CONSULTANT Visits 0 Physical Therapy Visit Comments Patient Comments I don't want to get up today. M4 PT-IP Mobility and Gait Start: 09/20/21 17:34 Freq: NEEDED Status: Active Protocol: Document 09/22/21 15:30 AW (Rec: 09/22/21 15:45 AW [id number]) PT-Transfer Assessment Comments Mobility Comments Encouraged pt to mobilize but he refused. Agreeable to supine exercise only. See tx comments below. M5 PT-IP Objective Assessments Start: 09/20/21 17:34 Freq: NEEDED Status: Active Protocol: Document 09/20/21 15:41 AB (Rec: 09/20/21 17:46 AB [id number]) Orientation Orientation/Cognition Level of Alertness Confusional State Orientation Name Language Function Ability No Deficits Noted Safety Awareness Decreased Safety Awareness Memory Description Short Term Impaired Gross Range of Motion Lower Extremity ROM Assessment Within Functional Limits Strength Lower Extremity Strength Assessment Left Impaired Hip 3/5 Knee 3+/5 Sensation Assessment Sensation Gross Sensation Left LE Impaired Sensation Description Numbness Comments Sensation Comments c/o L LE numbness Muscle Tone Muscle Tone WNL Yes M6 PT-IP Treatment Start: 09/20/21 17:34 Freq: NEEDED Status: Active Protocol: Document 09/22/21 15:30 AW (Rec: 09/22/21 15:45 AW [id number]) Physical Therapy Treatment Education Education Provided Safety Other Treatments Other Treatment Performed - Heel slides vs manual resistance - SLR with 5 sec hold - ankle PF/DF and PNF D2 (LLE PROM/AAROM) - hip abduction/ adduction isometrics vs manual resistance 5-10 sec hold. M7 PT-IP Assessment and Plan Start: 09/20/21 17:34 Freq: NEEDED Status: Active Protocol: Document 09/22/21 15:30 AW (Rec: 09/22/21 15:45 AW [id number]) PT Summary Assessment and Plan Potential Rehabilitation Potential Fair Summary Impairments Pain,ROM,Strength,Balance, Coordination,Sensation,Tone, Cognition,Bed Mobility, Transfers,Gait,Activity Tolerance Progress Towards Goals Slow Progress due to Activity Tolerance Assessment Summary Pt has depressed affect today and requires encouragement to participate with PT. He refused out of bed activity. Extensor tone LLE somewhat improved after patterning exercises for left ankle/foot. Pt will require SNF rehab to improve strength and mobility independence. Goals Bed Mobility Goal Standby Assistance Transfer Goal Standby Assistance,Front Wheeled Walker Gait Goal Standby Assistance,Front Wheel Walker Gait Distance 100 Days to Meet Goals 10 Frequency of Treatment Frequency Of Treatment Once a Day Treatment Plan Physical Therapy Treatment Plan Bed Mobility Training,Transfer Training,Gait Training, Therapeutic Exercise,Balance Retraining,Discharge Planning, Hot or Cold Pack,Neuromuscular Re-ed,Coordination Retraining ,Manual Therapy Precautions Other Precautions falls Recommendations To Nursing Amount of Assist Needed 2 Person Assist Discharge Recommendations PT Discharge Recommendations SNF Rehab Transportation Needs at Discharge Wheelchair/Cabulance
[2021-09-22 16:48] LABS: Alanine Aminotransferase 107 IU/L (<50); Albumin 3.8 g/dL (3.5-5.0); Albumin Globulin Ratio 0.9 (1.0-2.8); Alkaline Phosphatase 1063 U/L (38-126); Aspartate Aminotransferase 105 IU/L (17-59); BUN Creatinine Ratio 19.6 (6-22); Bilirubin Total 0.4 mg/dL (0.2-1.3); Blood Urea Nitrogen 18 mg/dL (9-20); Calcium 9.3 mg/dL (8.4-10.2); Carbon Dioxide 28 mmol/L (22-32); Chloride 106 mmol/L (98-107); Estimated Glomerular Filt Rate > 60.0 mL/min (>60); Globulin 4.2 g/dL (1.7-4.1); Glucose 94 mg/dL (80-110); HEMOLYSIS < 15 (0-50); Potassium 4.7 mmol/L (3.4-5.1); Sodium 141 mmol/L (137-145)
[2021-09-22 18:19] LABS: COVID19 -Nasal RAPID Negative (Negative)
[2021-09-22] MEDS: ZOLPIDEM 5 MG TABLET PO (19:49)
[2021-09-22 21:27] VITALS: BP 154/71; PULSE 50; RESP 18; TEMP 35.9; O2SAT 98
--- NOTE | 2021-09-22 21:43 | PC.NURSE ---
Patient oriented to self, birthdate, month, place and situation but off on age by 10 years. NIH was 4 due to weakness/loss of sensation in left extremities. Breath sounds CTA with RA sat of 98%. HRR but bradycardic at 50 bpm and BP elevated at 154/71. Denied nausea. BT present and is passing flatus. Voiding per urinal; denies dysuria, frequency or urgency. Is able to move self in bed. Gait not assessed at this time. Refuses SCD's so reminded to ankle wave. Fall risk score is high and bed alarm is activated. At shift change denied pain but recently was complaining of 6/10 back pain so medicated with Vicodin.
[2021-09-23] MEDS: LEVOTHYROXINE 125 MCG TABLET PO (05:52)
[2021-09-23 07:00] VITALS: BP 153/63; PULSE 52; RESP 20; TEMP 37; O2SAT 100
[2021-09-23 08:30] VITALS: O2SAT 98
[2021-09-23] MEDS: ENOXAPARIN 40 MG/0.4 ML SYRINGE SUBCUT (08:56)
[2021-09-23] MEDS: METOPROLOL ER 50 MG TABLET PO (08:56)
[2021-09-23] MEDS: polyethylene glycoL 3350 17 GM POWD.PACK PO (08:56)
[2021-09-23] MEDS: SERTRALINE 50 MG TABLET PO (08:57)
[2021-09-23] MEDS: ASPIRIN EC 81 MG TABLET PO (08:57)
[2021-09-23] MEDS: CLOPIDOGREL 75 MG TABLET PO (08:57)
[2021-09-23] MEDS: HYDROCODONE/ACET 10/325 TABLET 1 TAB PO ×4 (09:17→21:02)
--- NOTE | 2021-09-23 09:58 | OT.IP.TRT ---
Occupational Therapy Treatment Note M2 OT-IP Current Condition Start: 09/20/21 18:12 Freq: Status: Active Protocol: Document 09/20/21 14:57 [facility] (Rec: 09/20/21 18:30 [facility] [id number]) Occupational Therapy Current Condition Current Condition Evaluation Date 09/20/21 Treatment Diagnosis TIA, late effect CVA, decreased mobilty Diagnosis Onset Date 09/20/21 M3 OT- IP Subjective and Pain Start: 09/20/21 18:12 Freq: Status: Active Protocol: Document 09/23/21 10:42 [facility] (Rec: 09/23/21 10:51 [facility] [id number]) OT- Subjective Occupational Therapy Visit Type Type Progress Note Visit Start Time 09:35 Visit Stop Time 09:58 Total Visit Minutes 23 Occupational Therapy Visit Comments Patient Comments I will get dizzy if I have to sit up OT Pain Assessment Pain When Pain Assessed At Rest Pain Present Pain Present Pain Reported Location back Scale Used did not rate Management Techniques Distraction,Modification of Treatment,Re-positioning, Timing of Activity with Medications M4 OT- IP ADL's Start: 09/20/21 18:12 Freq: Status: Active Protocol: Document 09/23/21 10:42 [facility] (Rec: 09/23/21 10:51 [facility] [id number]) OT [id number] General Evaluation Self-Feeding Ability Independent Areas Needing Assistance Drinking From Cup/Glass OT ADL-Grooming General Evaluation Grooming Ability Independent Areas Needing Assistance Retrieving/Set-up of Grooming Items,Face Washing Comments OT Grooming Comments Ind with set up seated EOB OT ADL-Oral Care General Eval Oral Care Ability Independent Comments Oral Care Comments Use of mouth wash supine in bed. OT ADL-Dressing General Eval Upper Body Dressing Ability Standby Assistance Comments OT Dressing Comments Pt donned hospital gown and doffed at end of session without assist. OT ADL-Toileting General Evaluation Toileting Ability Independent Devices Toileting Assistive Devices Urinal Comments OT Toileting Comments Pt urinated supine in bed using urinal OT ADL-Bathing Comments OT Bathing Comments Not performed M5 OT- IP IADL's Start: 09/20/21 18:12 Freq: Status: Active Protocol: Document 09/20/21 14:57 [facility] (Rec: 09/20/21 18:30 [facility] [id number]) OT-Instrumental Activities of Daily Living Home Safety Awareness Awareness of Need for Assistance at Home Good Awareness Medication Management Medication Management Caregiver Administers Meal Preparation Meal Preparation Caregiver Provides Assist Cinder Crane Operator Cinder Crane Operator Caregiver Provides Assist M6 OT- IP Functional Cognition Start: 09/20/21 18:12 Freq: Status: Active Protocol: Document 09/20/21 14:57 [facility] (Rec: 09/20/21 18:30 [facility] [id number]) Cognitive Factors Limiting Selfcare Function Cognitive Ability Level of Alertness Alert,Confusional State Patient Orientation Name,Situation Attention Span Ability Capable of Focused Attention, Capable of Sustained Attention Ability to Follow Commands Able to Follow One Step Commands with Increased Time, Able to Follow One Step Commands with Repetition Cognitive Comments Cognitive Assessment Comments Pt thinking he was in the hospital at [place]. Pt very tearful at this time as upset on how is is doing. OT- Vision and Hearing OT- Hearing Assessment OT- Hearing Assessment WFL OT- Vision Assessment Visual Acuity Glasses For Reading M7 OT- IP Mobility and Balance Start: 09/20/21 18:12 Freq: Status: Active Protocol: Document 09/23/21 10:42 [facility] (Rec: 09/23/21 10:51 [facility] [id number]) OT- Bed Mobility Assessment Rolling Type of Rolling Roll to Right Level of Assistance Minimal Assistance,Head of Bed Elevated,Bedrails Supine to Sit Supine to Sit Assist Minimal Assistance,Moderate Assistance,Head of Bed Elevated,Bedrails Sit to Supine Sit to Supine Assist Standby Assistance Scooting Scooting to Edge of Bed Minimal Assistance Scooting Up and Down in Bed Minimal Assistance OT-Transfer Assessment Comments Mobility Comments Pt states dizziness with all upright activity. Attempted sitting EOB with feet on floor to help with dizziness but pt is unable to consistently keep his feet planted. Pt states dizziness does not change once he is sitting upright. Pt needed CGA to mod a for sitting balance with the use of BUE for sitting balance. OT- Balance Assessment Sitting Balance and Reactions Static Sitting Balance Ability Poor Dynamic Sitting Balance Ability Poor M8 OT- IP Objective Assessments Start: 09/20/21 18:12 Freq: Status: Active Protocol: Document 09/20/21 14:57 [facility] (Rec: 09/20/21 18:30 [facility] [id number]) OT Gross Range of Motion Upper Extremity Range of Motion Assessment Within Functional Limits OT Strength Comments Strength Comments BUE RUE 5/5, LUE 4-/5 to 4/5 from proximal to distal. OT- Coordination Assessment Upper Extremity Finger to Nose Test Left UE Impaired OT Sensation Assessment Comments Summary Comments To further assess sensation needs tomorrow. Pt has decreased awareness of LUE for position in space. M9 OT- IP Assessment and Plan Start: 09/20/21 18:12 Freq: Status: Active Protocol: Document 09/23/21 10:42 [facility] (Rec: 09/23/21 10:51 [facility] [id number]) OT Summary Assessment and Plan Potential Rehabilitation Potential Good Analytic Complexity at Evaluation Moderate Summary OT Impairments Strength,Balance,Coordination, Functional Cognition, Functional Mobility,Self- Feeding,Grooming,Dressing, Toileting,Bathing,Toilet Transfers,Shower Transfers, Activity Tolerance Progress Towards Goals Slow Progress due to Medical Issues,Slow Progress due to Activity Tolerance,Slow Progress due to Cognition Assessment Summary Pt presents with dizziness on this date that appears to be impacting his ability to participate in upright activity. Recommend P.T. to assess for vertigo. Pt was able to perform limited activity seated EOB and will continue to benefit from therapy services. Recommend d/ c to SNF. Goals Self-Feeding Goal Independent Grooming Goal Independent Dressing Goal Minimal Assistance Toileting Goal Minimal Assistance Bathing Goal Moderate Assistance Toilet Transfer Goal Contact Guard Assistance Shower Transfer Goal Contact Guard Assistance Days to Meet Goals 30 Frequency of Treatment Frequency Of Treatment Once a Day Treatment Plan OT Treatment Plan ADL Training,Functional Cognition Training,Functional Mobility,Patient/Family Education,Discharge Planning Other Treatment Recommendations and Next Transfer to [facility] with MODA X 2 Treatment Focus Discharge Recommendations OT Discharge Recommendations SNF Rehab Transportation Needs at Discharge Private Vehicle,Wheelchair/ Cabulance
[2021-09-23 10:16] LABS: Hematocrit 33.8 % (41-53); Hemoglobin 11.4 g/dL (13.5-17.5); Mean Corpuscular HGB Conc 33.8 % (30-36); Mean Corpuscular Hemoglobin 31.6 PG (26-34); Mean Corpuscular Volume 93.6 fL (80-100); Platelet Count 294 X10^3/uL (150-400); Red Blood Cell Count 3.62 X10^6/uL (4.5-5.9); Red Cell Distribution Width 17.4 % (11.6-14.8); White Blood Cell Count 5.5 X10^3/uL (4.5-11.0)
[2021-09-23 10:28] LABS: Alanine Aminotransferase 118 IU/L (<50); Albumin 3.9 g/dL (3.5-5.0); Alkaline Phosphatase 1127 U/L (38-126); Aspartate Aminotransferase 107 IU/L (17-59); BUN Creatinine Ratio 17.6 (6-22); Bilirubin Total 0.4 mg/dL (0.2-1.3); Blood Urea Nitrogen 18 mg/dL (9-20); Calcium 9.8 mg/dL (8.4-10.2); Carbon Dioxide 29 mmol/L (22-32); Chloride 105 mmol/L (98-107); Estimated Glomerular Filt Rate > 60.0 mL/min (>60); Globulin 4.1 g/dL (1.7-4.1); Glucose 106 mg/dL (80-110); HEMOLYSIS < 15 (0-50); Sodium 138 mmol/L (137-145)
--- NOTE | 2021-09-23 10:52 | PT.IPTN ---
Physical Therapy Treatment Note M2 PT-IP Current Condition Start: 09/20/21 17:34 Freq: NEEDED Status: Active Protocol: Document 09/20/21 15:41 AB (Rec: 09/20/21 17:46 AB [id number]) Physical Therapy Current Condition Current Condition Evaluation Date 09/20/21 Treatment Diagnosis TIA; late effects of CVA; difficulty in walking Onset Date 09/20/21 M3 PT-IP Subjective Start: 09/20/21 17:34 Freq: NEEDED Status: Active Protocol: Document 09/23/21 10:26 [facility] (Rec: 09/23/21 11:05 [facility] [id number]) Subjective Physical Therapy Visit Type Type Treatment Note Visit Start Time 10:26 Visit Stop Time 10:52 Total Visit Minutes 26 Number of ENGINE ROOM HELPER Visits 1 Physical Therapy Visit Comments Patient Comments Pt agreebable to working w/ therapy. M4 PT-IP Mobility and Gait Start: 09/20/21 17:34 Freq: NEEDED Status: Active Protocol: Document 09/23/21 10:26 [facility] (Rec: 09/23/21 11:05 [facility] [id number]) PT-Bed Mobility Assessment Supine to Sit Supine to Sit Minimal Assistance,Moderate Assistance,1 Person Assistance ,Head of Bed Elevated,Bedrails Scooting Scooting to Edge of Bed Minimal Assistance PT-Transfer Assessment Sit to and From Stand Sit to and from Stand Minimal Assistance,Moderate Assistance,1 Person Assistance ,Use of Upper Extremities Equipment Transfer Assistive Device Gait Belt,Front Wheeled Walker Orthotic/Prosthetic Devices or Brace: No Transfers Transfer Destination Bed Transfer Technique Lateral steps Transfer Ability Level of Assist Minimal Assistance,Moderate Assistance,1 Person Assistance ,Use of Upper Extremities Comments Mobility Comments Pt in bed upon arrival and reporting dizziness w/ mobility, needing encouragement to participate. Pts BP supine: 177/72. Min/Mod A for sup<>sit and Min A w/ bed rails for scooting to EOB, BP: 183/71 sitting EOB. Min/ Mod A for sit<>stand w/ FWW and able to take 3 teps laterally towards HOB Min A w/ cues for FWW management. Pt reported increased dizziness and requested to go back to bed. Gait Assessment Gait Gait Assistance Required: Minimum Assistance,1 Person Assist Distance (Feet) 3 Assistive Devices Assistive Device Gait Belt,Front Wheeled Walker Orthotic/Prosthetic Devices or Brace: No Comments Gait Comments Lateral steps towards HOB only . PT-Balance Assessment Sitting Balance and Reactions Static Sitting Balance Ability Fair Dynamic Sitting Balance Ability Fair Standing Balance and Reactions Static Standing Balance Ability Fair Dynamic Standing Balance Ability Poor Device Used FWW M5 PT-IP Objective Assessments Start: 09/20/21 17:34 Freq: NEEDED Status: Active Protocol: Document 09/20/21 15:41 AB (Rec: 09/20/21 17:46 AB [id number]) Orientation Orientation/Cognition Level of Alertness Confusional State Orientation Name Language Function Ability No Deficits Noted Safety Awareness Decreased Safety Awareness Memory Description Short Term Impaired Gross Range of Motion Lower Extremity ROM Assessment Within Functional Limits Strength Lower Extremity Strength Assessment Left Impaired Hip 3/5 Knee 3+/5 Sensation Assessment Sensation Gross Sensation Left LE Impaired Sensation Description Numbness Comments Sensation Comments c/o L LE numbness Muscle Tone Muscle Tone WNL Yes M6 PT-IP Treatment Start: 09/20/21 17:34 Freq: NEEDED Status: Active Protocol: Document 09/23/21 10:26 [facility] (Rec: 09/23/21 11:05 [facility] [id number]) Physical Therapy Treatment Education Education Provided Safety M7 PT-IP Assessment and Plan Start: 09/20/21 17:34 Freq: NEEDED Status: Active Protocol: Document 09/23/21 10:26 [facility] (Rec: 09/23/21 11:05 KS [id number]) PT Summary Assessment and Plan Potential Rehabilitation Potential Fair Summary Impairments Pain,ROM,Strength,Balance, Coordination,Sensation,Tone, Cognition,Bed Mobility, Transfers,Gait,Activity Tolerance Progress Towards Goals Slow Progress due to Activity Tolerance Assessment Summary Pt continues to require encouragement to participate due to frustration of deficits from stroke, however only needing Min to Mod A for bed mobility and sit<>stand w/ FWW . Limited by increased dizziness with mobility and unwilling to ambulate due to dizziness, but did take lateral steps towards HOB w/ Min A. Pt will require SNF rehab to improve strength and mobility independence. Goals Bed Mobility Goal Standby Assistance Transfer Goal Standby Assistance,Front Wheeled Walker Gait Goal Standby Assistance,Front Wheel Walker Gait Distance 100 Days to Meet Goals 10 Frequency of Treatment Frequency Of Treatment Once a Day Treatment Plan Physical Therapy Treatment Plan Bed Mobility Training,Transfer Training,Gait Training, Therapeutic Exercise,Balance Retraining,Discharge Planning, Hot or Cold Pack,Neuromuscular Re-ed,Coordination Retraining ,Manual Therapy Precautions Other Precautions falls Recommendations To Nursing Amount of Assist Needed 2 Person Assist Discharge Recommendations PT Discharge Recommendations SNF Rehab Transportation Needs at Discharge Wheelchair/Cabulance
[2021-09-23 11:21] VITALS: BP 157/67; PULSE 47
--- NOTE | 2021-09-23 16:37 | P.PN_ITS ---
Subjective Subjective Date Patient Seen: 09/23/21 Time Patient Seen: 08:00 Interval history: Today he notes he has some spasticity in his left great toe. Per staff he noted dizziness with movement, which he never stated to me. He is very guarded in terms of his symptoms. Exam Vital Signs (past 8 hours): - 09/23/21 11:21 Pulse Rate 47 L Blood Pressure 157/67 H Fraction of Inspired Oxygen 0 Oxygen Delivery Method Room Air Oxygen Flow Rate 0 Narrative Exam Narrative: GEN: He is alert and oriented x3.? CV: bradycardic with regular rhythm and no murmur PULM: clear to auscultation bilaterally ABD: soft, bowel sounds positive, nontender, no organomegaly EXT: have no ankle edema Neurologic exam:? Left foot strength is 2/5.?Left hand strength is 4/5. Objective Labs Result Diagrams: 09/23/21 09:10 09/23/21 09:10 Labs: Laboratory Results - last 24 hr 09/22/21 09/22/21 09/23/21 16:30 16:44 09:10 WBC 5.5 RBC 3.62 L Hgb 11.4 L Hct 33.8 L MCV 93.6 MCH 31.6 MCHC 33.8 RDW 17.4 H Plt Count 294 Sodium 141 Potassium 4.7 Chloride 106 Carbon Dioxide 28 BUN 18 Creatinine 0.92 Estimated GFR > 60.0 BUN/Creatinine Ratio 19.6 Glucose 94 Calcium 9.3 Total Bilirubin 0.4 AST 105 H ALT 107 H Alkaline Phosphatase 1063 H Total Protein 8.0 Albumin 3.8 Globulin 4.2 H Albumin/Globulin Ratio 0.9 L SARS-CoV-2 (PCR) Negative 09/23/21 09:10 WBC RBC Hgb Hct MCV MCH MCHC RDW Plt Count Sodium 138 Potassium 4.0 Chloride 105 Carbon Dioxide 29 BUN 18 Creatinine 1.02 Estimated GFR > 60.0 BUN/Creatinine Ratio 17.6 Glucose 106 Calcium 9.8 Total Bilirubin 0.4 AST 107 H ALT 118 H Alkaline Phosphatase 1127 H Total Protein 8.0 Albumin 3.9 Globulin 4.1 Albumin/Globulin Ratio 1.0 SARS-CoV-2 (PCR) [facility] Medical History Hypertension Social History household members: children Smoking Status: Current every day smoker alcohol intake: current Assessment & Plan Assessment & Plan narrative: Mr. Cotter is a 71M with PMH CVA, CAD s/p stents, HTN, HL who presents with resolving facial numbness and confusion. 1. Possible TIA vs CVA -concern for possible TIA vs CVA -CT head and CT angio head/neck show no acute process -symptoms have improved significantly and is not indicated for TPA -patient takes aspirin/plavix and will continue both -Stopped Atorvastatin due to elevated LFT -NIH q4 -ordered PT/OT and speech therapy -swallow screen ordered 2. 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 Transaminitis, acute, improving -patient denies abdominal symptoms -Hepatitis A antibody positive.? Unclear if Immunization related, prior infection, current infection? -Hep B ab and surface Antigen negative.? Hepatitis C studies pending -CT abdomen/pelvis suggests hepatitis 3. History of CAD s/p stents -continue aspirin, stopped Atorvastatin due to elevated LFT 4. Hypertension -for now as patient has likely had acute cva allow for permissive hypertension 5. Hyperlipidemia -Holding statin 6.. Depression -continue sertraline CODE: DNR Proxy: Wander Cotter, son Dispo: patient is medically stable for discharge pending snf placement Time Spent With Patient Critical Care time: I spent a total of [] minutes of critical care time on this patient's care today; this time is exclusive of procedural time. Quality VTE Deep Vein Thrombosis/Pulmonary Embolism Present on Admission: No
--- NOTE | 2021-09-23 16:38 | CM.DPC ---
DCP/continued: Patient has been accepted at [facility]. Neema reports that authorization has been received. Neema would like to pick patient up in AM if possible. P: [facility] on 09-24-21. PASSR done. LORETO
[2021-09-23 19:10] VITALS: BP 168/83; PULSE 52; RESP 18; TEMP 37.1; O2SAT 98
[2021-09-23] MEDS: ZOLPIDEM 5 MG TABLET PO (21:02)
--- NOTE | 2021-09-23 21:28 | PC.NURSE ---
Patient is oriented to self, birthdate, month, place and situation. Incorrect on age by 1 year. NIH = 3 for continued weakness/decreased sensation in left UE and LE. Breath sounds CTA with RA sat of 98%. HRR but bradycardic with rate in upper 40's to low 50's. BP elevated at 168/83. Denies nausea. BT present and is passing flatus; last BM was 09/20 and Miralax was started earlier this morning. Voiding per urinal; denies dysuria. Is able to move himself in bed. Gait not assessed at this time. Refusing SCD's so reminded to ankle wave. Received Vicodin at 2102 for complaint of 6/10 low back pain. Fall risk score is high and bed alarm is activated.
[2021-09-24] MEDS: LEVOTHYROXINE 125 MCG TABLET PO (06:15)
[2021-09-24 08:03] VITALS: O2SAT 96
[2021-09-24] MEDS: HYDROCODONE/ACET 10/325 TABLET 1 TAB PO ×2 (08:08→12:30)
[2021-09-24] MEDS: ENOXAPARIN 40 MG/0.4 ML SYRINGE SUBCUT (08:08)
[2021-09-24 08:09] VITALS: BP 143/69; PULSE 49
[2021-09-24] MEDS: METOPROLOL ER 50 MG TABLET PO (08:09)
[2021-09-24] MEDS: CLOPIDOGREL 75 MG TABLET PO (08:09)
[2021-09-24] MEDS: ASPIRIN EC 81 MG TABLET PO (08:09)
[2021-09-24] MEDS: SERTRALINE 50 MG TABLET PO (08:09)
--- NOTE | 2021-09-24 08:39 | CM.DPC ---
DCP/continued: Patient accepted at [facility]. 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 COViD test pending. Dr. Wang aware that new orders will need to be obtained. RN and patient updated. PHILL/Gabriela reis for updated orders. P: [facility] today. LORETO
[2021-09-24 09:19] LABS: COVID19 -Nasal RAPID Negative (Negative)
--- NOTE | 2021-09-24 10:37 | P.DS_ITS ---
History of Present Illness History of Present Illness Date Patient Seen: 09/24/21 Time Patient Seen: 10:37 Chief complaint: possible tia Narrative: 71m with PMH smoker, HTN, HL, and recent CVA with left sided weakness who noted he was having facial numbness, and possible right facial weakness, slurred speech, confusion that occurred prior to [facility]. He is not particularly detailed about his symptoms, he mostly notes himself that he felt his face was numb and weak. He was improving by the time he arrived to the ED. He has persistent left sided weakness and can not ambulate at baseline. He has not missed any medications. Because he was markedly improving he was not activated for a code stroke. In the ED workup was done, he was noted to be hypertensive. Labs notable for Hgb 10.9, wbc 6.6, creatinine 0.96. INR 1.0. LFTs abnormal with AST 147, ALT 136, alk hpos 1169. trop negative. COVID negative. Of note he did have an eosinophilia of 1200. CT head showed no acute process. CT angio head/neck showed no acute process. He was ordered for aspirin and admitted for further treatment. PMH: CAD s/p stents, CVA, HTN, HL, GERD, Depression Social history: smokes cigarettes occasionally, marijuana smoker, rare alcohol use Family history: denies stroke or CVA in parents, does not recall any other medical conditions in family Discharge Providers Provider Date of admission: 09/20/21 01:46 Discharge Date: 09/24/21 Primary care physician: Charity Georges MD Consults: 09/20/21 02:11 Consult to Discharge Planning Routine Comment: Consult to Occupational Therapy Evaluate & Treat Comment: Physician Instructions: Evaluate and treat Consult to Physical Therapy Evaluate & Treat Comment: Physician Instructions: Evaluate and Treat Consult to Speech Therapy Evaluate & Treat Comment: Physician Instructions: Evaluate and treat Discharge provider: Alysha Wang MD Summary Hospital Course Discharge Diagnosis: 1. Acute Frontal Lobe Stroke 2. Hypertension 3. Vertigo 4. Hypothyroidism 5. Hyperlipidiemia 6. GERD 7. Depression 8. CAD s/p stents Hospital Course: Patient was admitted to the hospital for weakness, right facial numbness, slurred speech, and confusion. HEad CT /CT Angio unremarkable/ Patient underwent Brain MRI which confirmed the following: Areas of restricted diffusion in the right frontal lobar deep white matter are redemonstrated, with less pronounced signal increase on diffusion-weighted image and signal decrease on the ADC map when compared with the prior study, reflecting the subacute nature of these infarcts.? There is associated increased FLAIR signal abnormality.? Severe chronic microvascular ischemic changes and mild global cerebral volume loss redemonstrated.? No findings of mass effect or midline shift.? The major intracranial vascular flow-related signal voids are maintained. He underwent CT of the ABd/ Pelvis which revealed heterogenious enhancement of the liver without a discrete mass. ? possible hepatitis. Bilateral nephrolithiasis without hydronephrosis, colonic diverticulosis, moderater amount of stool noted.Patient had elevated liver function tests with eosinophila, His hepatitis B was negative . His LFT's improved. His hepatitis C antibody is negative. His Hepatitis A IGM was positive. His AST is 107, ALT 118, Alk Phos is 1127. Patient should be vaccinated against Hepatits B as an outpatient. He complains of dizziness, he was started on meclizine to help. He was seen by PT/OT who recommended SNF for ongoing rehabilitation. Patient was deemed appropriate for discharge to SNF today. Status at Discharge Cognitive/behavioral status at discharge: oriented Functional status at discharge: uses cane/walker Overall status at discharge: patient is progressing back to baseline Exam Vital Signs (past 8 hours): - 09/24/21 08:03 09/24/21 08:09 Pulse Rate 49 L Blood Pressure 143/69 H Pulse Oximetry 96 Fraction of Inspired Oxygen 0 Oxygen Delivery Method Room Air Oxygen Flow Rate 0 Narrative Exam Narrative: pleasant male lying in bed Resp Other: Lungs: Clear to auscultation Cardio Other: CV: RRR nl Sl S2 GI Other: Abd: soft/ non tender/ nondistended Extrem Other: No Edema Objective Labs Result Diagrams: 09/23/21 09:10 09/23/21 09:10 Labs: Laboratory Results - last 24 hr 09/24/21 07:45 SARS-CoV-2 (PCR) Negative [facility] Medical History Hypertension Social History household members: children Smoking Status: Current every day smoker alcohol intake: current Discharge Assessment & Plan Assessment and Plan Assessment: 1. Acute Frontal Lobe Stroke 2. Hypertension 3. Vertigo 4. Hypothyroidism 5. Hyperlipidiemia 6. GERD 7. Depression 8. CAD s/p stents Plan of Treatment: discharge to SNF Discharge Plan Discharge Plan Patient Disposition: SNF Transportation: Cabulance Consult as needed: Dental, Hearing, Mental health, Podiatry and Vision I certify the postop hospital prison care is medically necessary on a continuing basis for any conditions for which he/ she received care during this hospitalization.: Yes The receiving facility has agreed to accept transfer and provide medical treatment.: Yes Discharge orders & Medications Prescriptions: New meclizine 12.5 mg Tablet 25 mg PO Q6HR PRN (Reason: Vertigo) Qty: 15 0RF clopidogrel 75 mg Tablet 75 mg PO DAILY Qty: 30 0RF hydrocodone-acetaminophen 10-325 mg Tablet 1 tab PO Q4HR PRN (Reason: Pain, Moderate (4-6)) Qty: 20 0RF aspirin 81 mg Tablet,Delayed Release (Dr/Ec) 81 mg PO DAILY Qty: 30 0RF Continued sertraline 50 mg tablet 50 mg PO DAILY 0RF levothyroxine 125 mcg tablet 125 mcg PO DAILY 0RF lovastatin 40 mg tablet 40 mg PO QPM 0RF metoprolol succinate 50 mg tablet extended release 24 hr 50 mg PO DAILY 0RF pantoprazole 40 mg tablet,delayed release (DR/EC) 40 mg PO DAILY 0RF zolpidem 5 mg tablet 10 mg PO BEDTIME PRN (Reason: Insomnia) 0RF Follow up/Referrals: Charity Georges MD [Primary Care Provider] - Discharge Health Status Multidrug resistant organism: No MDRO Diet/Activity/Treatments Diet: Low-sodium and Low-cholesterol Liquid consistency: Normal/Thin Food texture: Regular Special Rehabilitation Services Reason for rehabilitation: Therapy following stroke Rehab type: Physical therapy, Occupational therapy and Speech therapy Discharge Data Primary Care Provider: Charity Georges Attending Provider: Noah Burch VTE Deep Vein Thrombosis/Pulmonary Embolism Present on Admission: No
--- NOTE | 2021-09-24 10:39 | OT.IP.TRT ---
Occupational Therapy Treatment Note M2 OT-IP Current Condition Start: 09/20/21 18:12 Freq: Status: Active Protocol: Document 09/20/21 14:57 [facility] (Rec: 09/20/21 18:30 [facility] [id number]) Occupational Therapy Current Condition Current Condition Evaluation Date 09/20/21 Treatment Diagnosis TIA, late effect CVA, decreased mobilty Diagnosis Onset Date 09/20/21 M3 OT- IP Subjective and Pain Start: 09/20/21 18:12 Freq: Status: Active Protocol: Document 09/24/21 10:36 [facility] (Rec: 09/24/21 10:43 [facility] [id number]) OT- Subjective Occupational Therapy Visit Type Type Treatment Note Visit Start Time 10:00 Visit Stop Time 10:39 Total Visit Minutes 39 Occupational Therapy Visit Comments Patient Comments Pt wanting to shower. Patient/Caregiver Goals TO get better. OT Pain Assessment Pain When Pain Assessed At Rest Pain Present Pain Present Pain Reported M4 OT- IP ADL's Start: 09/20/21 18:12 Freq: Status: Active Protocol: Document 09/24/21 10:36 [facility] (Rec: 09/24/21 10:43 [facility] [id number]) OT ADL-Dressing General Eval Lower Body Dressing Ability Maximum Assistance Comments OT Dressing Comments Assist for socks. OT ADL-Toileting General Evaluation Toileting Ability Independent Devices Toileting Assistive Devices Urinal Comments OT Toileting Comments Pt urinated supine in bed using urinal OT ADL-Bathing Bathing Type Bathing Type Sponge Bath General Evaluation Bathing Ability Moderate Assistance,Maximal Assistance Areas Needing Assistance Wash/Dry Back,Wash/Dry Perineal Area,Wash/Dry Lower Extremities Comments OT Bathing Comments Pt too unsteady while seated to shower and therefore decided on sponge bath. Pt able to assist for his chest,arms, face and top on his legs. Nursing aid also came to assist. M5 OT- IP IADL's Start: 09/20/21 18:12 Freq: Status: Active Protocol: Document 09/20/21 14:57 [facility] (Rec: 09/20/21 18:30 [facility] [id number]) OT-Instrumental Activities of Daily Living Home Safety Awareness Awareness of Need for Assistance at Home Good Awareness Medication Management Medication Management Caregiver Administers Meal Preparation Meal Preparation Caregiver Provides Assist Punch Press Feeder Punch Press Feeder Caregiver Provides Assist M6 OT- IP Functional Cognition Start: 09/20/21 18:12 Freq: Status: Active Protocol: Document 09/20/21 14:57 [facility] (Rec: 09/20/21 18:30 [facility] [id number]) Cognitive Factors Limiting Selfcare Function Cognitive Ability Level of Alertness Alert,Confusional State Patient Orientation Name,Situation Attention Span Ability Capable of Focused Attention, Capable of Sustained Attention Ability to Follow Commands Able to Follow One Step Commands with Increased Time, Able to Follow One Step Commands with Repetition Cognitive Comments Cognitive Assessment Comments Pt thinking he was in the hospital at [place]. Pt very tearful at this time as upset on how is is doing. OT- Vision and Hearing OT- Hearing Assessment OT- Hearing Assessment WFL OT- Vision Assessment Visual Acuity Glasses For Reading M7 OT- IP Mobility and Balance Start: 09/20/21 18:12 Freq: Status: Active Protocol: Document 09/24/21 10:36 [facility] (Rec: 09/24/21 10:43 [facility] [id number]) OT- Bed Mobility Assessment Supine to Sit Supine to Sit Assist Minimal Assistance,Moderate Assistance,Head of Bed Elevated,Bedrails Sit to Supine Sit to Supine Assist Moderate Assistance Scooting Scooting to Edge of Bed Minimal Assistance Scooting Up and Down in Bed Minimal Assistance OT-Transfer Assessment Sit to and From Stand Sit to and from Stand Moderate Assistance Comments Mobility Comments MODA to stand and MAXA to take a few side steps to the head of the bed. Pt RLE tends to buckle. OT- Balance Assessment Sitting Balance and Reactions Static Sitting Balance Ability Poor Dynamic Sitting Balance Ability Poor Comments Other Balance Tests/Deviations/Treatment BP supine 143/65, sitting 164/ : 86 M9 OT- IP Assessment and Plan Start: 09/20/21 18:12 Freq: Status: Active Protocol: Document 09/24/21 10:36 [facility] (Rec: 09/24/21 10:43 [facility] [id number]) OT Summary Assessment and Plan Potential Rehabilitation Potential Fair Analytic Complexity at Evaluation Moderate Summary OT Impairments Strength,Balance,Coordination, Functional Cognition, Functional Mobility,Self- Feeding,Grooming,Dressing, Toileting,Bathing,Toilet Transfers,Shower Transfers, Activity Tolerance Progress Towards Goals Slow Progress due to Medical Issues,Slow Progress due to Activity Tolerance Assessment Summary Pt able to tolerate sponge bath while seated and pt would benefit form vestibular assessment for his dizziness especially during transition and when looking up. Pt to go to skilled rehab when medically stable. Goals Self-Feeding Goal Independent Grooming Goal Independent Dressing Goal Minimal Assistance Toileting Goal Minimal Assistance Bathing Goal Moderate Assistance Toilet Transfer Goal Contact Guard Assistance Shower Transfer Goal Contact Guard Assistance Days to Meet Goals 30 Frequency of Treatment Frequency Of Treatment Once a Day Treatment Plan OT Treatment Plan ADL Training,Functional Cognition Training,Functional Mobility,Patient/Family Education,Discharge Planning Discharge Recommendations OT Discharge Recommendations SNF Rehab Transportation Needs at Discharge Wheelchair/Cabulance
[2021-09-24 10:50] VITALS: BP 162/76; PULSE 51; RESP 18; TEMP 37.2; O2SAT 99
[2021-09-24 10:51] VITALS: BP 162/76; PULSE 51
--- NOTE | 2021-09-24 12:12 | PC.NURSE ---
Addendum entered by Sobia Brock R.N. 09/24/21 14:09: Transport from [facility] took pt in wheel chair from room, pt dressed in his own clothes and has belongings. Addendum entered by Sobia Brock R.N. 09/24/21 12:26: RN called in report to Celi jiang RN at [facility] and was told they would be picking up the pt around 1300 today. Original Note: RN spoke with pt and son in room, discharge instructions given and both agreeable, son signed for pt. waiting for picker to go to [facility] facility today.
--- NOTE | 2021-09-24 14:03 | PT-IP ANOTE ---
Attempted to see pt at 14:03 but pt had already d/c to SNF.
== END 2021-09-24 13:40 ==
LOC: ED 09-20 01:45 → AC 09-20 02:08
PROVIDERS: Family Medicine; Admitting Provider Internal Medicine; Emergency Provider Emergency Medicine; PCP Internal Medicine; Referring Provider Emergency Medicine; Visit Provider Internal Medicine
DX: I63.9 Cerebral infarction, unspecified (principal); R41.0 Disorientation, unspecified; R29.810 Facial weakness; R29.702 NIHSS score 2; I69.354 Hemiplegia and hemiparesis following cerebral infarction affecting left non-dominant side; I10 Essential (primary) hypertension; R42 Dizziness and giddiness; E78.5 Hyperlipidemia, unspecified; D72.10 Eosinophilia, unspecified; R74.01 Elevation of levels of liver transaminase levels; I25.10 Atherosclerotic heart disease of native coronary artery without angina pectoris; E03.9 Hypothyroidism, unspecified; K21.9 Gastro-esophageal reflux disease without esophagitis; Z95.818 Presence of other cardiac implants and grafts; F32.9 Major depressive disorder, single episode, unspecified; F17.210 Nicotine dependence, cigarettes, uncomplicated; Z79.01 Long term (current) use of anticoagulants; Z20.822 Contact with and (suspected) exposure to COVID-19
CPT/HCPCS: 36415; 70450; 70496; 70498; 70551; 71045; 74177; 80048; 80053; 80076; 80305; 81003; 82550; 82607; 82962; 83735; 84484; 85025; 85027; 85610; 85651; 86140; 86704; 86706; 86708; 87340; 87389; 87522; 87635; 93005; 93010; 96372; 97110; 97162; 97166; 97530; 97535; 99285; C9803; G0378; J1650; Q9967

== ENCOUNTER 2022-02-25 14:21 | Emergency (ER) | payer OTHER, SELFPAY ==
[2021-09-20 11:21] VITALS: BMI 19.8
[2022-02-25] VITALS (13 sets, daily range): BP systolic 148–209; BP diastolic 65–95; PULSE 60–86; RESP 17–41; TEMP 36.6; O2SAT 99–100
--- NOTE | 2022-02-25 14:33 | DI.RAD.S_ITS ---
PROCEDURE: XR CHEST 1V INDICATIONS: altered mental status TECHNIQUE: One view of the chest was acquired. COMPARISON: [facility], CR, XR CHEST 1V, 09/20/2021, 10:29. FINDINGS: Surgical changes and devices: None. Lungs and pleura: Lungs are clear. No pleural effusions or pneumothorax. Mediastinum: Mediastinal contours appear normal. Heart size is normal. Bones and chest wall: No suspicious bony lesions. Overlying soft tissues appear unremarkable. IMPRESSION: No acute cardiopulmonary pathology. Dictated by: Jose Roberto Lerner M.D. on 02/25/2022 at 15:21 Approved by: Jose Roberto Lerner M.D. on 02/25/2022 at 15:21
--- NOTE | 2022-02-25 14:34 | DI.CT.S_ITS ---
PROCEDURE: CT HEAD/BRAIN WO CON INDICATIONS: altered TECHNIQUE: Noncontrast 4.5 mm thick angled axial sections acquired from the foramen magnum to the vertex, with coronal and sagittal reformats. For radiation dose reduction, the following was used: automated exposure control, adjustment of mA and/or kV according to patient size. COMPARISON: [facility], CT, CT HEAD/BRAIN WO CON, 09/21/2021, 18:43. FINDINGS: Image quality: Excellent. CSF spaces: Basal cisterns are patent. No extra-axial fluid collections. Ventricles are normal in size and shape. Brain: Global cerebral volume loss and advanced chronic microvascular ischemic changes similar to the previous exam. Remote lacunar left centrum semiovale and cerda radiata infarct changes. Skull and face: Calvarium and visualized facial bones are intact, without suspicious lesions. Sinuses: Similar chronic opacification of the left frontal sinus, left anterior ethmoid air cells, left maxillary sinus. IMPRESSION: No acute intracranial finding. Chronic findings similar to prior study. Dictated by: Terrence Lay M.D. on 02/25/2022 at 15:16 Approved by: Terrence Lay M.D. on 02/25/2022 at 15:18
[2022-02-25] MEDS: SODIUM CHLORIDE 0.9% 1,000 ML 1000 ML IV (14:58)
[2022-02-25 15:03] LABS: Add Manual Diff / Slide Review NO; Basophils Absolute Auto 100 /uL (0-100); Basophils Percent Auto 0.8 % (0-2); Eosinophils Absolute Auto 200 /uL (0-450); Eosinophils Percent Auto 2.7 % (2-4); Hematocrit 36.7 % (41-53); Hemoglobin 12.4 g/dL (13.5-17.5); Lymphocytes Absolute Auto 900 /uL (1100-4500); Lymphocytes Percent Auto 11.3 % (25-40); Mean Corpuscular HGB Conc 33.9 % (30-36); Mean Corpuscular Hemoglobin 30.9 PG (26-34); Mean Corpuscular Volume 91.2 fL (80-100); Monocytes Absolute Auto 700 /uL (0-900); Monocytes Percent Auto 8.6 % (3-14); Neutrophils Absolute Auto 6400 /uL (1500-7000); Neutrophils Percent Auto 76.6 % (50-75); Platelet Count 322 X10^3/uL (150-400); Red Blood Cell Count 4.03 X10^6/uL (4.5-5.9); Red Cell Distribution Width 13.7 % (11.6-14.8); White Blood Cell Count 8.3 X10^3/uL (4.5-11.0)
[2022-02-25 15:21] LABS: COVID19 -Nasal RAPID Negative (Negative)
--- NOTE | 2022-02-25 15:24 | PC.NURSE ---
pt reports today he had a heart attack . states that it is his grandson's 11th birthday today.
[2022-02-25 15:26] LABS: Creatine Kinase 38 U/L (55-170)
[2022-02-25 15:38] LABS: Troponin I < 0.012 ng/mL (0.01-0.034)
--- NOTE | 2022-02-25 16:17 | ED.GENADULT ---
HPI - General Adult General Chief complaint: Altered Mental Status Stated complaint: fEELS LIKE HE HAD A STROKE, CONFUSION Time Seen by Provider: 02/25/22 15:01 Source: family Mode of arrival: Wheelchair History of Present Illness HPI narrative: 71-year-old gentleman with dementia cared for by his son, history of hypothyroidism, hyperlipidemia, hypertension, reflux, prior TIA and CVA brought to the emergency room by his son with concerns that there is increased confusion and he is concerned that he has had another stroke. Patient has little to offer to overall history but states that he currently is feeling fine with the exception of chronic back pain. Related Data Home Medications Medication Instructions Recorded Confirmed levothyroxine 125 mcg tablet 125 mcg PO DAILY thyroid 09/03/21 09/20/21 lovastatin 40 mg tablet 40 mg PO QPM 09/03/21 09/20/21 metoprolol succinate 50 mg 50 mg PO DAILY hypertension 09/03/21 09/20/21 tablet,extended release 24 hr pantoprazole 40 mg tablet,delayed 40 mg PO DAILY 09/03/21 09/20/21 release sertraline 50 mg tablet 50 mg PO DAILY depression 09/03/21 09/20/21 zolpidem 5 mg tablet 10 mg PO BEDTIME PRN Insomnia 09/20/21 09/20/21 Previous Rx's Medication Instructions Recorded aspirin 81 mg tablet,delayed 81 mg PO DAILY #30 tabs 09/24/21 release clopidogrel 75 mg tablet 75 mg PO DAILY #30 tabs 09/24/21 hydrocodone 10 mg-acetaminophen 1 tab PO Q4HR PRN Pain, Moderate 09/24/21 325 mg tablet (4-6) #20 tabs meclizine 12.5 mg tablet 25 mg PO Q6HR PRN Vertigo #15 tabs 09/24/21 Allergies Allergy/AdvReac Type Severity Reaction Status Date / Time amitriptyline [From Elavil] Allergy Unknown Verified 02/25/22 14:38 Review of Systems Review of Systems ROS Unobtainable: Unobtainable due to mental condition Patient History Medical History Cerebrovascular accident Chronic GERD Dementia Hyperlipidemia Hypertension Social History household members: children Smoking Status: Current every day smoker alcohol intake: current Smoking Status: Current every day smoker tobacco type: cigarettes alcohol intake frequency: holidays/special occasions only Substance Use Type: marijuana Exam Initial Vital Signs Initial Vital Signs: Vital Signs Temperature 97.8 F 02/25/22 14:35 Pulse Rate 65 02/25/22 14:35 Respiratory Rate 18 02/25/22 14:35 Blood Pressure 209/95 H 02/25/22 14:35 Pulse Oximetry 100 02/25/22 14:35 Oxygen Delivery Method 02/25/22 14:35 General: Frail, chronically ill-appearing but no acute distress. HEENT: Moist mucous membranes, normal sclera with reactive pupils, Neck: No JVD, supple Respiratory: Lungs are clear to auscultation, no wheezing no rales no rhonchi. Full and symmetrical air movement Cardiac: Regular rate and rhythm no murmurs no bruits Abdomen: Soft, complains of tenderness with deep palpation without rebound or guarding,, good bowel tones, no flank pain Skin: Warm and dry, no rashes Neurologic: Globally weak but Grossly neurologically intact with no obvious asymmetries or abnormalities Extremities: No trauma, well perfused Psych: Cooperative, cognitive deficits appreciated Course Orders Ordered: ED Orders 02/25/22 14:30 COVID19 -Nasal RAPID/Pre-Proc Stat Complete Blood Count AUTO DIFF Stat Comprehensive Metabolic Panel Stat Troponin & CK Cardiac Panel Stat 02/25/22 14:33 XR chest 1V Stat Urine Drug Screen, Rapid Stat 02/25/22 14:34 CT head/brain wo con Stat 02/25/22 14:38 EKG-12 Lead Stat 02/25/22 16:30 Ictotest Urine Stat Urinalysis and Microscopic Stat Urine Culture Stat Discontinued Medications Sodium Chloride (Normal Saline 0.9%) 1,000 mls @ 1,000 mls/hr IV BOLUS ONE Stop: 02/25/22 15:33 Last Admin: 02/25/22 14:58 Dose: 1,000 mls/hr Documented By: NR Ceftriaxone Sodium 2,000 mg/ (Sodium Chloride) 100 mls @ 200 mls/hr IV NOW ONE Stop: 02/25/22 17:06 Last Titration: 02/25/22 18:09 Dose: Infused Vital Signs Vital signs: Vital Signs - 8 hr 02/25/22 14:35 02/25/22 14:54 02/25/22 15:00 Temperature 97.8 F Pulse Rate 65 62 60 Respiratory Rate 18 19 19 Blood Pressure 209/95 H Pulse Oximetry 100 99 99 Oxygen Delivery Method Room Air 02/25/22 15:17 02/25/22 15:17 02/25/22 15:30 Temperature Pulse Rate 62 Respiratory Rate 21 Blood Pressure 172/77 H 164/69 H Pulse Oximetry 100 Oxygen Delivery Method 02/25/22 15:30 02/25/22 16:00 02/25/22 16:00 Temperature Pulse Rate 60 63 Respiratory Rate 17 20 Blood Pressure 169/74 H Pulse Oximetry 100 100 Oxygen Delivery Method 02/25/22 16:30 Temperature Pulse Rate 84 Respiratory Rate 33 H Blood Pressure Pulse Oximetry 100 Oxygen Delivery Method Medical Decision Making Lab Data Result diagrams: 02/25/22 14:30 02/25/22 14:30 Labs: Lab Results 02/25/22 02/25/22 02/25/22 Range/Units 14:30 14:30 14:30 WBC 8.3 (4.5-11.0) X10^3/uL RBC 4.03 L (4.5-5.9) X10^6/uL Hgb 12.4 L (13.5-17.5) g/dL Hct 36.7 L (41-53) % MCV 91.2 (80-100) fL MCH 30.9 (26-34) PG MCHC 33.9 (30-36) % RDW 13.7 (11.6-14.8) % Plt Count 322 (150-400) X10^3/uL Neut % (Auto) 76.6 H (50-75) % Lymph % (Auto) 11.3 L (25-40) % [place] % (Auto) 8.6 (3-14) % Eos % (Auto) 2.7 (2-4) % Baso % (Auto) 0.8 (0-2) % Neut # (Auto) 6400 (2876-6015) /uL Lymph # (Auto) 900 L (9112-4333) /uL Webster # (Auto) 700 (0-900) /uL Eos # (Auto) 200 (0-450) /uL Baso # (Auto) 100 (0-100) /uL Sodium 143 (137-145) mmol/L Potassium 4.2 (3.4-5.1) mmol/L Chloride 108 H (98-107) mmol/L Carbon Dioxide 25 (22-32) mmol/L BUN 26 H (9-20) mg/dL Creatinine 0.94 (0.66-1.25) mg/dL Estimated GFR > 60 (>60) mL/min BUN/Creatinine Ratio 27.7 H (6-22) Glucose 142 H (80-110) mg/dL Calcium 10.7 H (8.4-10.2) mg/dL Total Bilirubin 0.7 (0.2-1.3) mg/dL AST 52 (17-59) IU/L ALT 38 (<50) IU/L Alkaline Phosphatase 318 H (38-126) U/L Total Creatine Kinase 38 L (55-170) U/L CK-MB (CK-2) TNP CK-MB (CK-2) Rel Index TNP Troponin I < 0.012 (0.01-0.034) ng/mL Total Protein 8.2 (6.3-8.2) g/dL Albumin 4.3 (3.5-5.0) g/dL Globulin 3.9 (1.7-4.1) g/dL Albumin/Globulin Ratio 1.1 (1.0-2.8) Urine Color Urine Appearance Urine pH (4.5-8.0) Ur Specific [place] (1.000-1.035) Urine Protein (Negative) Urine Glucose (UA) (Negative) g/dL Urine Ketones (NEGATIVE) Urine Occult Blood (Negative) Urine Nitrate (Negative) Urine Bilirubin (NEGATIVE) Ur Bilirubin Confirm (Negative) Urine Urobilinogen (0.2) E.U./dL Ur Leukocyte Esterase (NEGATIVE) Urine RBC (0-5/HPF) Urine WBC (0-5/HPF) Ur Squamous Epith Cells (0-5/HPF) Ur Transition Epith Cell (0-5/HPF) Ur Renal Epithelial Cell (0-1/HPF) Urine Bacteria (None) Ur Culture Indicated? U Opiates 300ng/mL cut (Negative) Ur Oxycodone Screen (Negative) Urine Methadone Screen (Negative) Ur Barbiturates Screen (Negative) U Tricyclic Antidepress (Negative) Ur Phencyclidine Scrn (Negative) Ur Amphetamines Screen (Negative) U Methamphetamines Scrn (Negative) Ur MDMA Scrn (Ecstasy) (Negative) U Benzodiazepines Scrn (Negative) Urine Cocaine Screen (Negative) U Marijuana (THC) Screen (Negative) SARS-CoV-2 (PCR) (Negative) 02/25/22 02/25/22 02/25/22 Range/Units 14:30 16:30 16:30 WBC (4.5-11.0) X10^3/uL RBC (4.5-5.9) X10^6/uL Hgb (13.5-17.5) g/dL Hct (41-53) % MCV (80-100) fL MCH (26-34) PG MCHC (30-36) % RDW (11.6-14.8) % Plt Count (150-400) X10^3/uL Neut % (Auto) (50-75) % Lymph % (Auto) (25-40) % [place] % (Auto) (3-14) % Eos % (Auto) (2-4) % Baso % (Auto) (0-2) % Neut # (Auto) (3154-8129) /uL Lymph # (Auto) (7673-7720) /uL [place] # (Auto) (0-900) /uL Eos # (Auto) (0-450) /uL Baso # (Auto) (0-100) /uL Sodium (137-145) mmol/L Potassium (3.4-5.1) mmol/L Chloride (98-107) mmol/L Carbon Dioxide (22-32) mmol/L BUN (9-20) mg/dL Creatinine (0.66-1.25) mg/dL Estimated GFR (>60) mL/min BUN/Creatinine Ratio (6-22) Glucose (80-110) mg/dL Calcium (8.4-10.2) mg/dL Total Bilirubin (0.2-1.3) mg/dL AST (17-59) IU/L ALT (<50) IU/L Alkaline Phosphatase (38-126) U/L Total Creatine Kinase (55-170) U/L CK-MB (CK-2) CK-MB (CK-2) Rel Index Troponin I (0.01-0.034) ng/mL Total Protein (6.3-8.2) g/dL Albumin (3.5-5.0) g/dL Globulin (1.7-4.1) g/dL Albumin/Globulin Ratio (1.0-2.8) Urine Color Brown Urine Appearance Cloudy Urine pH 7.0 (4.5-8.0) Ur Specific [place] 1.010 (1.000-1.035) Urine Protein 2+ H (Negative) Urine Glucose (UA) Trace H (Negative) g/dL Urine Ketones 1+ H (NEGATIVE) Urine Occult Blood 3+ H (Negative) Urine Nitrate Positive H (Negative) Urine Bilirubin Negative (NEGATIVE) Ur Bilirubin Confirm Negative (Negative) Urine Urobilinogen 0.2 (0.2) E.U./dL Ur Leukocyte Esterase 1+ H (NEGATIVE) Urine RBC >100/hpf H (0-5/HPF) Urine WBC 10-30/hpf H (0-5/HPF) Ur Squamous Epith Cells 0-1 /hpf (0-5/HPF) Ur Transition Epith Cell 0-1/hpf (0-5/HPF) Ur Renal Epithelial Cell 0-1/hpf (0-1/HPF) Urine Bacteria Many (>30) H (None) Ur Culture Indicated? Specimen cultured U Opiates 300ng/mL cut Positive H (Negative) Ur Oxycodone Screen Negative (Negative) Urine Methadone Screen Negative (Negative) Ur Barbiturates Screen Negative (Negative) U Tricyclic Antidepress Negative (Negative) Ur Phencyclidine Scrn Negative (Negative) Ur Amphetamines Screen Negative (Negative) U Methamphetamines Scrn Negative (Negative) Ur MDMA Scrn (Ecstasy) Negative (Negative) U Benzodiazepines Scrn Negative (Negative) Urine Cocaine Screen Negative (Negative) U Marijuana (THC) Screen Positive H (Negative) SARS-CoV-2 (PCR) Negative (Negative) Imaging Data CT scan - head: Radiologist's Impression: FINDINGS:? Image quality:? Excellent.? ? CSF spaces:? Basal cisterns are patent.? No extra-axial fluid collections.? Ventricles are normal in size and shape.? ? Brain:? Global cerebral volume loss and advanced chronic microvascular ischemic changes similar to the previous exam.? Remote lacunar left centrum semiovale and cerda radiata infarct changes. ? Skull and face:? Calvarium and visualized facial bones are intact, without suspicious lesions.? ? Sinuses:? Similar chronic opacification of the left frontal sinus, left anterior ethmoid air cells, left maxillary sinus. ? IMPRESSION:? No acute intracranial finding.? Chronic findings similar to prior study. ? ? Dictated by: Terrence Lay M.D. on 02/25/2022 at 15:16 ? ? Chest x-ray: Radiologist's Impression: FINDINGS:? ? Surgical changes and devices:? None.? ? Lungs and pleura:? Lungs are clear.? No pleural effusions or pneumothorax.? ? Mediastinum:? Mediastinal contours appear normal.? Heart size is normal.? ? Bones and chest wall:? No suspicious bony lesions.? Overlying soft tissues appear unremarkable.? ? IMPRESSION:? No acute cardiopulmonary pathology. ? ? Dictated by: Jose Roberto Lerner M.D. on 02/25/2022 at 15:21 ? ? ECG Data Interpretation: Sinus rhythm at a rate of 63 Normal intervals, normal axis No acute ischemic changes MDM Narrative Medical decision making narrative: 71-year-old gentleman who lives with his son who is his primary caregiver. Progressive cognitive deficits. His son is concerned about overall weakness of gradual decline concerned he may have had another stroke. On clinical exam he does not appear to have focal weakness. He is complaining of abdominal pain, back pain and his urine does look like it is infected. He is given 2 g of ceftriaxone IV in the emergency department as a single dose treatment for possible developing UTI. Labs are otherwise unremarkable with mildly elevated calcium and BUN levels likely will respond nicely to hydration. Urine does suggest urinary tract infection there is no evidence of sepsis and no significant evidence of systemic infection with a white count at 8.3 and no evidence of fever. Will review care with his son, at this point I am seeing no indication of stroke, acute coronary syndrome, sepsis or reason for additional workup for hospital admission. He has been treated for a possible developing UTI in urine has been cultured. He does not need additional antibiotics. He has been given a small bolus of fluid and at this point is safe to return to his home living situation. Discharge Plan Departure Patient Disposition: Home Clinical Impression: Dementia Urinary tract infection Qualifiers: Urinary tract infection type: acute cystitis Hematuria presence: without hematuria Qualified Code(s): N30.00 - Acute cystitis without hematuria Instructions: DI for Urinary Tract Infection (UTI) Activity Restrictions/Additional Instructions: Thank you for coming in today With your exam and evaluation I do not find any evidence for stroke, heart attack, sepsis, severe abdominal infection or need for additional imaging workup or hospitalization. It does look like you are developing a bladder infection and you have been given a large dose of IV antibiotics as a single dose treatment for that. That urine will be cultured and we will contact you if additional antibiotics are required. At this time, you do not need any oral antibiotics at home. If you find that you are getting worse or develop any new symptoms, please feel free to return to the emergency department for further evaluation. Prescriptions: No Action sertraline 50 mg tablet 50 mg PO DAILY levothyroxine 125 mcg tablet 125 mcg PO DAILY lovastatin 40 mg tablet 40 mg PO QPM metoprolol succinate 50 mg tablet extended release 24 hr 50 mg PO DAILY pantoprazole 40 mg tablet,delayed release (DR/EC) 40 mg PO DAILY zolpidem 5 mg tablet 10 mg PO BEDTIME PRN (Reason: Insomnia) meclizine 12.5 mg Tablet 25 mg PO Q6HR PRN (Reason: Vertigo) Qty: 15 0RF clopidogrel 75 mg Tablet 75 mg PO DAILY Qty: 30 0RF hydrocodone-acetaminophen 10-325 mg Tablet 1 tab PO Q4HR PRN (Reason: Pain, Moderate (4-6)) Qty: 20 0RF aspirin 81 mg Tablet,Delayed Release (Dr/Ec) 81 mg PO DAILY Qty: 30 0RF
[2022-02-25 16:20] LABS: Alanine Aminotransferase 38 IU/L (<50); Albumin 4.3 g/dL (3.5-5.0); Albumin Globulin Ratio 1.1 (1.0-2.8); Alkaline Phosphatase 318 U/L (38-126); Aspartate Aminotransferase 52 IU/L (17-59); BUN Creatinine Ratio 27.7 (6-22); Bilirubin Total 0.7 mg/dL (0.2-1.3); Blood Urea Nitrogen 26 mg/dL (9-20); Calcium 10.7 mg/dL (8.4-10.2); Carbon Dioxide 25 mmol/L (22-32); Chloride 108 mmol/L (98-107); Estimated Glomerular Filt Rate > 60 mL/min (>60); Globulin 3.9 g/dL (1.7-4.1); Glucose 142 mg/dL (80-110); HEMOLYSIS < 15 (0-50); Potassium 4.2 mmol/L (3.4-5.1); Sodium 143 mmol/L (137-145); Total Protein 8.2 g/dL (6.3-8.2)
[2022-02-25 16:53] LABS: Appearance Urine UA CLOUDY; Color Urine UA BROWN; Glucose Urine UA TRACE g/dL (Negative); Ketones Urine UA 1+ (NEGATIVE); Leukocyte Esterase Urine UA 1+ (NEGATIVE); Nitrite Urine UA POSITIVE (Negative); Occult Blood Urine UA 3+ (Negative); Protein Urine UA 2+ (Negative); Urobilinogen Urine UA 0.2 E.U./dL (0.2)
[2022-02-25 17:16] LABS: Bacteria Urine Many (>30); Culture Indicated Urine Specimen Cultured; RBC Urine >100/HPF (0-5/HPF); Renal Epithelial Cells Urine 0-1/HPF (0-1/HPF); Squamous Epithelial Cell Urine 0-1 /HPF (0-5/HPF); Transitional Epi Cells Urine 0-1/HPF (0-5/HPF); UR Morphine/Opiate cutoff 300 Positive (Negative); Ur Creatinine Normal (Normal); Ur Specific Gravity Normal (Normal); Urine Amphetamines Negative (Negative); Urine Barbiturates Negative (Negative); Urine Benzodiazepines Negative (Negative); Urine Cocaine Negative (Negative); Urine MDMA Negative (Negative); Urine Methadone Negative (Negative); Urine Methamphetamines Negative (Negative); Urine Oxycodone Negative (Negative); Urine Phencyclidine Negative (Negative); Urine Tetrahydrocannabinol Positive (Negative); Urine Tricyclic Antidepressant Negative (Negative); Urine pH Normal (Normal); WBC Urine 10-30/HPF (0-5/HPF)
[2022-02-25 17:18] LABS: Bilirubin Urine UA Negative (NEGATIVE); Ictotest Urine Negative (Negative)
[2022-02-25] MEDS: cefTRIAXone 2,000 MG in SODIUM CHLORIDE 0.9% 100 ML 200 MG IV (17:27)
--- NOTE | 2022-02-25 18:51 | CM.SWNOTE ---
DCP/TOBACCO PRIZER Note Patient is 71 y/o male who presents to ED with son due to increased confusion over the past few days. It was also reported that patient has been trying to get out of bed and has been usually bed bound. No PCP listed, per previous DCP note: patient's PCP is Dr. Georges. Payor: [employer] Medicare, and [facility] Medicare Advantage. Patient has hx of Dementia, Cerebrovascular accident, TIA and Hypertension. Patient has dx today of UTI. ED provider Dr. Whitney requests TOBACCO PRIZER consult upon patient's d/c to home when patient's son arrives to fern picker son. Patient resides with son and patient's son and daughter in law are primary caregivers. It is reported that son cares for all of patient's ADLs but recently patient has been getting up out of bed and trying to walk around and has been falling. Patient is provided antibiotics rx for new UTI dx as UTI contributes to patient's change in behavior. Son endorses that patient has hx of HH services and states he does not think that would be helpful at this time. TOBACCO PRIZER provides patient and son with Senior Resource guide and shows son information regarding SNFs for family to look into dementia unit facilities. Son denies any further patient needs at this time. Plan: patient to d/c to home with son, family to look into higher level of care for patient. ALLISON Bowles
== END 2022-02-25 18:52 | disposition home or self-care (01) ==
PROVIDERS: Emergency Provider Emergency Medicine
DX: F03.90 Unspecified dementia, unspecified severity, without behavioral disturbance, psychotic disturbance, mood disturbance, and anxiety (principal); N30.00 Acute cystitis without hematuria; Z20.822 Contact with and (suspected) exposure to COVID-19
CPT/HCPCS: 36415; 70450; 71045; 80053; 80305; 81001; 82550; 84484; 85025; 87086; 87635; 93005; 93010; 96361; 96365; 99284; C9803; J0696

== ENCOUNTER 2022-05-08 19:05 | Emergency (ER) | payer OTHER, SELFPAY ==
[2021-09-20 11:21] VITALS: BMI 19.8
[2022-05-08] VITALS (12 sets, daily range): BP systolic 130–172; BP diastolic 64–78; PULSE 49–60; RESP 16–20; TEMP 36.6; O2SAT 97–100; BMI 18.1
--- NOTE | 2022-05-08 19:29 | DI.RAD.S_ITS ---
PROCEDURE: XR CHEST 1V INDICATIONS: chest pain TECHNIQUE: One view of the chest was acquired. COMPARISON: [facility], CR, XR CHEST 1V, 02/25/2022, 14:46. FINDINGS: Surgical changes and devices: None. Lungs and pleura: Lungs are clear. No pleural effusions or pneumothorax. Mediastinum: Mediastinal contours appear normal. Heart size is normal. Bones and chest wall: No suspicious bony lesions. Overlying soft tissues appear unremarkable. IMPRESSION: 1. No acute cardiopulmonary disease. Dictated by: Nathaniel Barney M.D. on 05/08/2022 at 20:34 Approved by: Nathaniel Barney M.D. on 05/08/2022 at 20:34
[2022-05-08 19:44] LABS: Add Manual Diff / Slide Review NO; Basophils Absolute Auto 100 /uL (0-100); Basophils Percent Auto 1.1 % (0-2); Eosinophils Absolute Auto 400 /uL (0-450); Eosinophils Percent Auto 7.5 % (2-4); Hematocrit 32.1 % (41-53); Hemoglobin 10.8 g/dL (13.5-17.5); Lymphocytes Absolute Auto 1200 /uL (1100-4500); Lymphocytes Percent Auto 21.3 % (25-40); Mean Corpuscular HGB Conc 33.7 % (30-36); Mean Corpuscular Hemoglobin 30.8 PG (26-34); Mean Corpuscular Volume 91.6 fL (80-100); Monocytes Absolute Auto 600 /uL (0-900); Monocytes Percent Auto 9.8 % (3-14); Neutrophils Absolute Auto 3400 /uL (1500-7000); Neutrophils Percent Auto 60.3 % (50-75); Platelet Count 282 X10^3/uL (150-400); White Blood Cell Count 5.6 X10^3/uL (4.5-11.0)
[2022-05-08 19:48] LABS: Alanine Aminotransferase 60 IU/L (<50); Albumin Globulin Ratio 1.1 (1.0-2.8); Alkaline Phosphatase 360 U/L (38-126); Aspartate Aminotransferase 79 IU/L (17-59); BUN Creatinine Ratio 22.9 (6-22); Bilirubin Total 0.6 mg/dL (0.2-1.3); Blood Urea Nitrogen 24 mg/dL (9-20); Calcium 9.5 mg/dL (8.4-10.2); Carbon Dioxide 29 mmol/L (22-32); Chloride 103 mmol/L (98-107); Creatine Kinase 38 U/L (55-170); Estimated Glomerular Filt Rate > 60 mL/min (>60); Globulin 3.8 g/dL (1.7-4.1); Glucose 100 mg/dL (80-110); HEMOLYSIS < 15 (0-50); Lipase 66 U/L (23-300); Magnesium 2.2 mg/dL (1.6-2.3); Potassium 4.1 mmol/L (3.4-5.1); Sodium 140 mmol/L (137-145); Total Protein 7.8 g/dL (6.3-8.2)
[2022-05-08 20:00] LABS: Troponin I < 0.012 ng/mL (0.01-0.034)
[2022-05-08 20:07] LABS: COVID19 -Nasal RAPID Negative (Negative)
--- NOTE | 2022-05-08 20:20 | ED_ITS ---
HPI - Chest Pain <Mark Singleton MD - Last Filed: 05/22/22 18:09> General Chief Complaint: Chest Pain Stated Complaint: chest pain/back pain Time Seen by Provider: 05/08/22 19:34 Mode of arrival: Wheelchair History of Present Illness HPI narrative: Patient brought here by his son for complaints of substernal chest pain. Started today. Has improved now. Essentially resolved. With short of breath he states. Patient is awake alert to self and date of . Does have history of dementia. States he does have history of heart attack in the past. Has not been sick recently. No cough cold congestion fever chills. No fall or injury. In addition, son is at bedside and gives more detail. Patient has had cardiac stents in the past. Cardiology and primary care is [facility]. Son is a primary care provider for him at home however he lives with his and patient there. Unfortunately in the past couple of days his has a restraining order on the son and the son can not be at home to take care of patient. His is unable to care the patient as well. They have been reaching out to the state for help. However not able to get any help for prison placement. Patient does have [employer] insurance. Son is uncertain why they can not get help for prison. Son states he is power of real estate associate attorney. Patient is DNR with comfort measures only. They have signed forms in the past. Son states he and patient do not want stress test or echocardiogram or surgical intervention Related Data Home Medications Medication Instructions Recorded Confirmed levothyroxine 125 mcg tablet 150 mcg PO DAILY thyroid 09/03/21 05/18/22 sertraline 50 mg tablet 50 mg PO DAILY depression 09/03/21 05/18/22 hydroxyzine HCl 25 mg tablet 25 mg PO QID PRN Itching 05/10/22 05/18/22 lovastatin 40 mg tablet 40 mg PO QPM 05/18/22 05/18/22 Previous Rx's Medication Instructions Recorded clopidogrel 75 mg tablet 75 mg PO DAILY #30 tabs 09/24/21 hydrocodone 10 mg-acetaminophen 1 tab PO Q4HR PRN Pain, Moderate 09/24/21 325 mg tablet (4-6) #20 tabs meclizine 12.5 mg tablet 25 mg PO Q6HR PRN Vertigo #15 tabs 09/24/21 Allergies Allergy/AdvReac Type Severity Reaction Status Date / Time amitriptyline [From Elavil] Allergy Unknown Verified 05/19/22 11:34 Review of Systems <Mark Singleton MD - Last Filed: 05/22/22 18:09> Review of Systems Narrative: GENERAL: Denies chills, fatigue, malaise, fever, sweats. HEENT: Denies sinus pain, ear pain, sore throat RESPIRATORY: Denies dyspnea, cough CARDIOVASCULAR: Positive chest pain, negative palpitations GASTROINTESTINAL: Denies nausea, vomiting, abdominal pain : Denies dysuria, frequency, hematuria MUSCULOSKELETAL: denies muscle or bony pain SKIN: Denies rash, skin lesions NEUROLOGIC: Denies weakness, numbness ROS Unobtainable: All systems reviewed & are unremarkable except as noted in HPI and below Patient History <Mark Singleton MD - Last Filed: 05/22/22 18:09> Medical History Cerebrovascular accident Chronic GERD Dementia Hyperlipidemia Hypertension Social History household members: children Smoking Status: Former smoker alcohol intake: current Smoking Status: Former smoker tobacco type: cigarettes alcohol intake frequency: holidays/special occasions only Substance Use Type: marijuana Exam <Mark Singleton MD - Last Filed: 05/22/22 18:09> Narrative Exam Narrative: GENERAL: in no distress, not toxic not dyspneic HEAD: Normocephalic. EYES: Pupils equal round No scleral icterus. ENT: Mucous membranes moist. NECK: Trachea midline. CARDIOVASCULAR: Regular rate and rhythm without murmurs RESPIRATORY: Clear to auscultation. Breath sounds equal bilaterally. No wheezes, rales, or rhonchi. GASTROINTESTINAL: Abdomen soft, non-tender EXTREMITIES: No gross deformities. BACK: No flank tenderness. NEURO: AOx2. Clear speech no facial droop light touch intact to bilateral face and hands. 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 SKIN: Warm and dry PSYCH: Not anxious, is cooperative Initial Vital Signs Initial Vital Signs: Vital Signs Pulse Rate 57 L 05/08/22 19:10 Respiratory Rate 18 05/08/22 19:10 Blood Pressure 172/78 H 05/08/22 19:10 Pulse Oximetry 99 05/08/22 19:10 Oxygen Delivery Method 05/08/22 19:10 <Carmina Kulkarni, DO - Last Filed: 05/12/22 17:57> Initial Vital Signs Initial Vital Signs: Vital Signs Pulse Rate 57 L 05/08/22 19:10 Respiratory Rate 18 05/08/22 19:10 Blood Pressure 172/78 H 05/08/22 19:10 Pulse Oximetry 99 05/08/22 19:10 Oxygen Delivery Method 05/08/22 19:10 <Lanre Whyte, DO - Last Filed: 05/12/22 16:15> Initial Vital Signs Initial Vital Signs: Vital Signs Pulse Rate 57 L 05/08/22 19:10 Respiratory Rate 18 05/08/22 19:10 Blood Pressure 172/78 H 05/08/22 19:10 Pulse Oximetry 99 05/08/22 19:10 Oxygen Delivery Method 05/08/22 19:10 <Mayra Matta, DO - Last Filed: 05/14/22 10:01> Initial Vital Signs Initial Vital Signs: Vital Signs Pulse Rate 57 L 05/08/22 19:10 Respiratory Rate 18 05/08/22 19:10 Blood Pressure 172/78 H 05/08/22 19:10 Pulse Oximetry 99 05/08/22 19:10 Oxygen Delivery Method 05/08/22 19:10 Course <Mark Singleton MD - Last Filed: 05/22/22 18:09> Course Course Narrative: May 09, 2022 at 7:00 a.m.. Sign out to Dr Kulkarni, social work consult has been placed in. Will need help for prison placement. At this time patient is DNR DNI with comfort measures only. Patient and family do not want any cardiac workup. Reviewed with hospitalist, no indication for admission at this time. Will need social work evaluation from the emergency department May 09, 2022 at 6:00 p.m.. Sign out from Dr Kulkarni, patient has been evaluated by Physical therapy as well as social work. Patient does not qualify for sniff. Patient does not have Medicaid. Patient is not safe for discharge home. Son is working on trying to get home medications up-to-date. May 10, 2022 at 7:00 a.m. sign-out to Dr. Whyte, patient still waiting for placement. Does not qualify for sniff according to social work. He does not have Medicaid. At this time will need to try to admit to hospitalist patient is not safe and is not able to go home due to social obstacles. Decision to Admit Date: 05/08/22 Decision to Admit time: 20:26 Orders Ordered: Discontinued Medications Hydrocodone Bitart/Acetaminophen (Hydrocodone/Acet 5/325 Tablet) 1 tab PO NOW ONE Stop: 05/09/22 09:10 Last Admin: 05/09/22 09:48 Dose: 1 tab Documented By: MOISES Hydrocodone Bitart/Acetaminophen (Hydrocodone/Acet 10/325 Tablet) 1 tab PO Q8HR PRN PRN Reason: Pain, Moderate (4-6) Hydrocodone Bitart/Acetaminophen (Hydrocodone/Acet 5/325 Tablet) 2 tab PO Q8HR PRN PRN Reason: Pain, Moderate (4-6) Last Admin: 05/12/22 11:24 Dose: 2 tab Documented By: Admin: 05/11/22 09:25 Dose: 2 tab Documented By: JAD Alprazolam (Alprazolam 0.5 Mg Tablet) 0.5 mg PO NOW ONE Stop: 05/09/22 23:34 Last Admin: 05/09/22 23:35 Dose: 0.5 mg Documented By: MALCOM Alprazolam (Alprazolam 0.5 Mg Tablet) 0.5 mg PO NOW ONE Stop: 05/11/22 00:21 Last Admin: 05/11/22 00:30 Dose: 0.5 mg Documented By: GEOVANNY Alprazolam (Alprazolam 0.5 Mg Tablet) 0.5 mg PO NOW ONE Stop: 05/11/22 22:25 Last Admin: 05/11/22 22:28 Dose: 0.5 mg Documented By: GABRIELLA Alprazolam (Alprazolam 0.25 Mg Tablet) 0.25 mg PO NOW ONE Stop: 05/12/22 15:41 Last Admin: 05/12/22 15:45 Dose: 0.25 mg Documented By: GEOVANNY(2) Aspirin (Aspirin 81 Mg Chew Tab) 324 mg PO NOW ONE Stop: 05/08/22 20:20 Last Admin: 05/08/22 20:25 Dose: 324 mg Documented By: MARY Clopidogrel Bisulfate (Clopidogrel 75 Mg Tablet) 75 mg PO DAILY [facility] Last Admin: 05/12/22 08:54 Dose: 75 mg Documented By: JAD(2) Admin: 05/11/22 09:25 Dose: 75 mg Documented By: JAD Diphenhydramine HCl (Diphenhydramine 25 Mg Tablet) 25 mg PO NOW ONE Stop: 05/09/22 23:17 Last Admin: 05/09/22 23:20 Dose: 25 mg Documented By: MALCOM Enoxaparin Sodium (Enoxaparin 40 Mg/0.4 Ml Syringe) 40 mg SUBCUT DAILY [facility] Last Admin: 05/12/22 08:55 Dose: 40 mg Documented By: JAD(2) Admin: 05/11/22 09:25 Dose: 40 mg Documented By: JAD Levothyroxine Sodium (Levothyroxine 150 Mcg Tablet) 150 mcg PO DAILY@0600 [facility] Last Admin: 05/12/22 08:55 Dose: 150 mcg Documented By: JAD(2) Admin: 05/11/22 09:24 Dose: 150 mcg Documented By: JAD Melatonin (Melatonin 3 Mg Tablet) 3 mg PO BEDTIME [facility] Last Admin: 05/11/22 21:05 Dose: 3 mg Documented By: Admin: 05/10/22 20:59 Dose: 3 mg Documented By: GEOVANNY Sertraline HCl (Sertraline 50 Mg Tablet) 50 mg PO BEDTIME [facility] Last Admin: 05/11/22 21:05 Dose: 50 mg Documented By: Admin: 05/10/22 20:59 Dose: 50 mg Documented By: GEOVANNY Reevaluation(s) Reevaluation #1: Patient currently chest pain-free. Son at bedside. They do agree for admission and get social work to help for their social issues. Time: 20:53 Consultations Consultation #1: Spoke with Eun Cohen hospitalist, at this time with administrative instructions in the past if patient is just here for social or prison placement then no criteria for admission, as patient is DNR and comfort measures and do not want any stress test or workup. It would be best to keep patient in the ER and social work in the morning Time: 21:39 Vital Signs Vital signs: Vital Signs - 8 hr 05/12/22 10:19 05/12/22 10:20 05/12/22 10:20 Pulse Rate 79 80 Respiratory Rate Blood Pressure 137/77 Pulse Oximetry 95 99 05/12/22 10:30 05/12/22 11:20 05/12/22 11:41 Pulse Rate 78 78 Respiratory Rate 18 18 Blood Pressure 165/78 H Pulse Oximetry 98 98 05/12/22 11:00 05/12/22 11:30 05/12/22 11:41 Pulse Rate 79 76 Respiratory Rate Blood Pressure 165/78 H Pulse Oximetry 98 98 05/12/22 11:41 05/12/22 12:00 05/12/22 12:30 Pulse Rate 76 80 78 Respiratory Rate 18 Blood Pressure Pulse Oximetry 99 98 98 05/12/22 16:05 05/12/22 16:05 Pulse Rate 55 L Respiratory Rate Blood Pressure 150/79 H Pulse Oximetry 99 <Carmina Kulkarni, - Last Filed: 05/12/22 17:57> Orders Ordered: Discontinued Medications Hydrocodone Bitart/Acetaminophen (Hydrocodone/Acet 5/325 Tablet) 1 tab PO NOW ONE Stop: 05/09/22 09:10 Last Admin: 05/09/22 09:48 Dose: 1 tab Documented By: MOISES Hydrocodone Bitart/Acetaminophen (Hydrocodone/Acet 10/325 Tablet) 1 tab PO Q8HR PRN PRN Reason: Pain, Moderate (4-6) Hydrocodone Bitart/Acetaminophen (Hydrocodone/Acet 5/325 Tablet) 2 tab PO Q8HR PRN PRN Reason: Pain, Moderate (4-6) Last Admin: 05/12/22 11:24 Dose: 2 tab Documented By: Admin: 05/11/22 09:25 Dose: 2 tab Documented By: JAD Alprazolam (Alprazolam 0.5 Mg Tablet) 0.5 mg PO NOW ONE Stop: 05/09/22 23:34 Last Admin: 05/09/22 23:35 Dose: 0.5 mg Documented By: MALCOM Alprazolam (Alprazolam 0.5 Mg Tablet) 0.5 mg PO NOW ONE Stop: 05/11/22 00:21 Last Admin: 05/11/22 00:30 Dose: 0.5 mg Documented By: GEOVANNY Alprazolam (Alprazolam 0.5 Mg Tablet) 0.5 mg PO NOW ONE Stop: 05/11/22 22:25 Last Admin: 05/11/22 22:28 Dose: 0.5 mg Documented By: GABRIELLA Alprazolam (Alprazolam 0.25 Mg Tablet) 0.25 mg PO NOW ONE Stop: 05/12/22 15:41 Last Admin: 05/12/22 15:45 Dose: 0.25 mg Documented By: GEOVANNY(2) Aspirin (Aspirin 81 Mg Chew Tab) 324 mg PO NOW ONE Stop: 05/08/22 20:20 Last Admin: 05/08/22 20:25 Dose: 324 mg Documented By: MARY Clopidogrel Bisulfate (Clopidogrel 75 Mg Tablet) 75 mg PO DAILY [facility] Last Admin: 05/12/22 08:54 Dose: 75 mg Documented By: JAD(2) Admin: 05/11/22 09:25 Dose: 75 mg Documented By: JAD Diphenhydramine HCl (Diphenhydramine 25 Mg Tablet) 25 mg PO NOW ONE Stop: 05/09/22 23:17 Last Admin: 05/09/22 23:20 Dose: 25 mg Documented By: MALCOM Enoxaparin Sodium (Enoxaparin 40 Mg/0.4 Ml Syringe) 40 mg SUBCUT DAILY [facility] Last Admin: 05/12/22 08:55 Dose: 40 mg Documented By: JAD(2) Admin: 05/11/22 09:25 Dose: 40 mg Documented By: JAD Levothyroxine Sodium (Levothyroxine 150 Mcg Tablet) 150 mcg PO DAILY@0600 [facility] Last Admin: 05/12/22 08:55 Dose: 150 mcg Documented By: JAD(2) Admin: 05/11/22 09:24 Dose: 150 mcg Documented By: JAD Melatonin (Melatonin 3 Mg Tablet) 3 mg PO BEDTIME [facility] Last Admin: 05/11/22 21:05 Dose: 3 mg Documented By: Admin: 05/10/22 20:59 Dose: 3 mg Documented By: GEOVANNY Sertraline HCl (Sertraline 50 Mg Tablet) 50 mg PO BEDTIME [facility] Last Admin: 05/11/22 21:05 Dose: 50 mg Documented By: Admin: 05/10/22 20:59 Dose: 50 mg Documented By: GEOVANNY Vital Signs Vital signs: Vital Signs - 8 hr 05/12/22 10:19 05/12/22 10:20 05/12/22 10:20 Pulse Rate 79 80 Respiratory Rate Blood Pressure 137/77 Pulse Oximetry 95 99 05/12/22 10:30 05/12/22 11:20 05/12/22 11:41 Pulse Rate 78 78 Respiratory Rate 18 18 Blood Pressure 165/78 H Pulse Oximetry 98 98 05/12/22 11:00 05/12/22 11:30 05/12/22 11:41 Pulse Rate 79 76 Respiratory Rate Blood Pressure 165/78 H Pulse Oximetry 98 98 05/12/22 11:41 05/12/22 12:00 05/12/22 12:30 Pulse Rate 76 80 78 Respiratory Rate 18 Blood Pressure Pulse Oximetry 99 98 98 05/12/22 16:05 05/12/22 16:05 Pulse Rate 55 L Respiratory Rate Blood Pressure 150/79 H Pulse Oximetry 99 <Lanre Whyte, DO - Last Filed: 05/12/22 16:15> Orders Ordered: Discontinued Medications Hydrocodone Bitart/Acetaminophen (Hydrocodone/Acet 5/325 Tablet) 1 tab PO NOW ONE Stop: 05/09/22 09:10 Last Admin: 05/09/22 09:48 Dose: 1 tab Documented By: MOISES Hydrocodone Bitart/Acetaminophen (Hydrocodone/Acet 10/325 Tablet) 1 tab PO Q8HR PRN PRN Reason: Pain, Moderate (4-6) Hydrocodone Bitart/Acetaminophen (Hydrocodone/Acet 5/325 Tablet) 2 tab PO Q8HR PRN PRN Reason: Pain, Moderate (4-6) Last Admin: 05/12/22 11:24 Dose: 2 tab Documented By: Admin: 05/11/22 09:25 Dose: 2 tab Documented By: JAD Alprazolam (Alprazolam 0.5 Mg Tablet) 0.5 mg PO NOW ONE Stop: 05/09/22 23:34 Last Admin: 05/09/22 23:35 Dose: 0.5 mg Documented By: MALCOM Alprazolam (Alprazolam 0.5 Mg Tablet) 0.5 mg PO NOW ONE Stop: 05/11/22 00:21 Last Admin: 05/11/22 00:30 Dose: 0.5 mg Documented By: GEOVANNY Alprazolam (Alprazolam 0.5 Mg Tablet) 0.5 mg PO NOW ONE Stop: 05/11/22 22:25 Last Admin: 05/11/22 22:28 Dose: 0.5 mg Documented By: GABRIELLA Alprazolam (Alprazolam 0.25 Mg Tablet) 0.25 mg PO NOW ONE Stop: 05/12/22 15:41 Last Admin: 05/12/22 15:45 Dose: 0.25 mg Documented By: [email or web address]) Aspirin (Aspirin 81 Mg Chew Tab) 324 mg PO NOW ONE Stop: 05/08/22 20:20 Last Admin: 05/08/22 20:25 Dose: 324 mg Documented By: MARY Clopidogrel Bisulfate (Clopidogrel 75 Mg Tablet) 75 mg PO DAILY [facility] Last Admin: 05/12/22 08:54 Dose: 75 mg Documented By: JAD(2) Admin: 05/11/22 09:25 Dose: 75 mg Documented By: JAD Diphenhydramine HCl (Diphenhydramine 25 Mg Tablet) 25 mg PO NOW ONE Stop: 05/09/22 23:17 Last Admin: 05/09/22 23:20 Dose: 25 mg Documented By: MALCOM Enoxaparin Sodium (Enoxaparin 40 Mg/0.4 Ml Syringe) 40 mg SUBCUT DAILY [facility] Last Admin: 05/12/22 08:55 Dose: 40 mg Documented By: KAPIL2) Admin: 05/11/22 09:25 Dose: 40 mg Documented By: JAD Levothyroxine Sodium (Levothyroxine 150 Mcg Tablet) 150 mcg PO DAILY@0600 [facility] Last Admin: 05/12/22 08:55 Dose: 150 mcg Documented By: JAD(2) Admin: 05/11/22 09:24 Dose: 150 mcg Documented By: JAD Melatonin (Melatonin 3 Mg Tablet) 3 mg PO BEDTIME [facility] Last Admin: 05/11/22 21:05 Dose: 3 mg Documented By: Admin: 05/10/22 20:59 Dose: 3 mg Documented By: GEOVANNY Sertraline HCl (Sertraline 50 Mg Tablet) 50 mg PO BEDTIME [facility] Last Admin: 05/11/22 21:05 Dose: 50 mg Documented By: Admin: 05/10/22 20:59 Dose: 50 mg Documented By: GEOVANNY Vital Signs Vital signs: Vital Signs - 8 hr 05/12/22 10:19 05/12/22 10:20 05/12/22 10:20 Pulse Rate 79 80 Respiratory Rate Blood Pressure 137/77 Pulse Oximetry 95 99 05/12/22 10:30 05/12/22 11:20 05/12/22 11:41 Pulse Rate 78 78 Respiratory Rate 18 18 Blood Pressure 165/78 H Pulse Oximetry 98 98 05/12/22 11:00 05/12/22 11:30 05/12/22 11:41 Pulse Rate 79 76 Respiratory Rate Blood Pressure 165/78 H Pulse Oximetry 98 98 05/12/22 11:41 05/12/22 12:00 05/12/22 12:30 Pulse Rate 76 80 78 Respiratory Rate 18 Blood Pressure Pulse Oximetry 99 98 98 05/12/22 16:05 05/12/22 16:05 Pulse Rate 55 L Respiratory Rate Blood Pressure 150/79 H Pulse Oximetry 99 <Mayra Matta DO - Last Filed: 05/14/22 10:01> Orders Ordered: Discontinued Medications Hydrocodone Bitart/Acetaminophen (Hydrocodone/Acet 5/325 Tablet) 1 tab PO NOW ONE Stop: 05/09/22 09:10 Last Admin: 05/09/22 09:48 Dose: 1 tab Documented By: MOISES Hydrocodone Bitart/Acetaminophen (Hydrocodone/Acet 10/325 Tablet) 1 tab PO Q8HR PRN PRN Reason: Pain, Moderate (4-6) Hydrocodone Bitart/Acetaminophen (Hydrocodone/Acet 5/325 Tablet) 2 tab PO Q8HR PRN PRN Reason: Pain, Moderate (4-6) Last Admin: 05/12/22 11:24 Dose: 2 tab Documented By: Admin: 05/11/22 09:25 Dose: 2 tab Documented By: JAD Alprazolam (Alprazolam 0.5 Mg Tablet) 0.5 mg PO NOW ONE Stop: 05/09/22 23:34 Last Admin: 05/09/22 23:35 Dose: 0.5 mg Documented By: MALCOM Alprazolam (Alprazolam 0.5 Mg Tablet) 0.5 mg PO NOW ONE Stop: 05/11/22 00:21 Last Admin: 05/11/22 00:30 Dose: 0.5 mg Documented By: GEOVANNY Alprazolam (Alprazolam 0.5 Mg Tablet) 0.5 mg PO NOW ONE Stop: 05/11/22 22:25 Last Admin: 05/11/22 22:28 Dose: 0.5 mg Documented By: GABRIELLA Alprazolam (Alprazolam 0.25 Mg Tablet) 0.25 mg PO NOW ONE Stop: 05/12/22 15:41 Last Admin: 05/12/22 15:45 Dose: 0.25 mg Documented By: GEOVANNY(2) Aspirin (Aspirin 81 Mg Chew Tab) 324 mg PO NOW ONE Stop: 05/08/22 20:20 Last Admin: 05/08/22 20:25 Dose: 324 mg Documented By: MARY Clopidogrel Bisulfate (Clopidogrel 75 Mg Tablet) 75 mg PO DAILY [facility] Last Admin: 05/12/22 08:54 Dose: 75 mg Documented By: KAPIL2) Admin: 05/11/22 09:25 Dose: 75 mg Documented By: JAD Diphenhydramine HCl (Diphenhydramine 25 Mg Tablet) 25 mg PO NOW ONE Stop: 05/09/22 23:17 Last Admin: 05/09/22 23:20 Dose: 25 mg Documented By: MALCOM Enoxaparin Sodium (Enoxaparin 40 Mg/0.4 Ml Syringe) 40 mg SUBCUT DAILY [facility] Last Admin: 05/12/22 08:55 Dose: 40 mg Documented By: [email or web address]) Admin: 05/11/22 09:25 Dose: 40 mg Documented By: AJD Levothyroxine Sodium (Levothyroxine 150 Mcg Tablet) 150 mcg PO DAILY@0600 [facility] Last Admin: 05/12/22 08:55 Dose: 150 mcg Documented By: JAD(2) Admin: 05/11/22 09:24 Dose: 150 mcg Documented By: JAD Melatonin (Melatonin 3 Mg Tablet) 3 mg PO BEDTIME [facility] Last Admin: 05/11/22 21:05 Dose: 3 mg Documented By: Admin: 05/10/22 20:59 Dose: 3 mg Documented By: GEOVANNY Sertraline HCl (Sertraline 50 Mg Tablet) 50 mg PO BEDTIME [facility] Last Admin: 05/11/22 21:05 Dose: 50 mg Documented By: Admin: 05/10/22 20:59 Dose: 50 mg Documented By: GEOVANNY Vital Signs Vital signs: Vital Signs - 8 hr 05/12/22 10:19 05/12/22 10:20 05/12/22 10:20 Pulse Rate 79 80 Respiratory Rate Blood Pressure 137/77 Pulse Oximetry 95 99 05/12/22 10:30 05/12/22 11:20 05/12/22 11:41 Pulse Rate 78 78 Respiratory Rate 18 18 Blood Pressure 165/78 H Pulse Oximetry 98 98 05/12/22 11:00 05/12/22 11:30 05/12/22 11:41 Pulse Rate 79 76 Respiratory Rate Blood Pressure 165/78 H Pulse Oximetry 98 98 05/12/22 11:41 05/12/22 12:00 05/12/22 12:30 Pulse Rate 76 80 78 Respiratory Rate 18 Blood Pressure Pulse Oximetry 99 98 98 05/12/22 16:05 05/12/22 16:05 Pulse Rate 55 L Respiratory Rate Blood Pressure 150/79 H Pulse Oximetry 99 MDM - Chest Pain <Mark Singleton MD - Last Filed: 05/22/22 18:09> Differential Diagnosis Differential diagnosis: Likely stable angina, unstable angina pectoris, atypical chest pain and chest pain Lab Data Result diagrams: 05/11/22 06:00 05/11/22 06:00 Labs: Lab Results 05/08/22 05/08/22 05/08/22 Range/Units 19:22 19:22 19:24 WBC 5.6 (4.5-11.0) X10^3/uL RBC 3.50 L (4.5-5.9) X10^6/uL Hgb 10.8 L (13.5-17.5) g/dL Hct 32.1 L (41-53) % MCV 91.6 (80-100) fL MCH 30.8 (26-34) PG MCHC 33.7 (30-36) % RDW 15.0 H (11.6-14.8) % Plt Count 282 (150-400) X10^3/uL Neut % (Auto) 60.3 (50-75) % Lymph % (Auto) 21.3 L (25-40) % Love % (Auto) 9.8 (3-14) % Eos % (Auto) 7.5 H (2-4) % Baso % (Auto) 1.1 (0-2) % Neut # (Auto) 3400 (0140-8355) /uL Lymph # (Auto) 1200 (4604-1282) /uL Love # (Auto) 600 (0-900) /uL Eos # (Auto) 400 (0-450) /uL Baso # (Auto) 100 (0-100) /uL Sodium 140 (137-145) mmol/L Potassium 4.1 (3.4-5.1) mmol/L Chloride 103 (98-107) mmol/L Carbon Dioxide 29 (22-32) mmol/L BUN 24 H (9-20) mg/dL Creatinine 1.05 (0.66-1.25) mg/dL Estimated GFR > 60 (>60) mL/min BUN/Creatinine Ratio 22.9 H (6-22) Glucose 100 (80-110) mg/dL Calcium 9.5 (8.4-10.2) mg/dL Magnesium 2.2 (1.6-2.3) mg/dL Total Bilirubin 0.6 (0.2-1.3) mg/dL AST 79 H (17-59) IU/L ALT 60 H (<50) IU/L Alkaline Phosphatase 360 H (38-126) U/L Total Creatine Kinase 38 L (55-170) U/L CK-MB (CK-2) TNP CK-MB (CK-2) Rel Index TNP Troponin I < 0.012 (0.01-0.034) ng/mL Total Protein 7.8 (6.3-8.2) g/dL Albumin 4.0 (3.5-5.0) g/dL Globulin 3.8 (1.7-4.1) g/dL Albumin/Globulin Ratio 1.1 (1.0-2.8) Lipase 66 (23-300) U/L TSH (0.47-4.68) uIU/mL Free T4 (0.78-2.19) ng/dL Urine RBC (0-5/HPF) Urine WBC (0-5/HPF) Ur Squamous Epith Cells (0-5/HPF) Ur Transition Epith Cell (0-5/HPF) Urine Bacteria (None) Urine Mucus (Negative) SARS-CoV-2 (PCR) Negative (Negative) 05/08/22 05/11/22 05/11/22 Range/Units 22:13 06:00 06:00 WBC 5.2 (4.5-11.0) X10^3/uL RBC 3.73 L (4.5-5.9) X10^6/uL Hgb 11.4 L (13.5-17.5) g/dL Hct 33.9 L (41-53) % MCV 91.1 (80-100) fL MCH 30.6 (26-34) PG MCHC 33.6 (30-36) % RDW 14.7 (11.6-14.8) % Plt Count 294 (150-400) X10^3/uL Neut % (Auto) 49.5 L (50-75) % Lymph % (Auto) 29.7 (25-40) % Love % (Auto) 7.4 (3-14) % Eos % (Auto) 12.5 H (2-4) % Baso % (Auto) 0.9 (0-2) % Neut # (Auto) 2600 (9210-9334) /uL Lymph # (Auto) 1500 (5380-7496) /uL Love # (Auto) 400 (0-900) /uL Eos # (Auto) 700 H (0-450) /uL Baso # (Auto) 0 (0-100) /uL Sodium 139 (137-145) mmol/L Potassium 4.1 (3.4-5.1) mmol/L Chloride 106 (98-107) mmol/L Carbon Dioxide 25 (22-32) mmol/L BUN 28 H (9-20) mg/dL Creatinine 1.05 (0.66-1.25) mg/dL Estimated GFR > 60 (>60) mL/min BUN/Creatinine Ratio 26.7 H (6-22) Glucose 87 (80-110) mg/dL Calcium 9.5 (8.4-10.2) mg/dL Magnesium (1.6-2.3) mg/dL Total Bilirubin 0.3 (0.2-1.3) mg/dL AST 54 (17-59) IU/L ALT 45 (<50) IU/L Alkaline Phosphatase 392 H (38-126) U/L Total Creatine Kinase (55-170) U/L CK-MB (CK-2) CK-MB (CK-2) Rel Index Troponin I (0.01-0.034) ng/mL Total Protein 7.4 (6.3-8.2) g/dL Albumin 3.8 (3.5-5.0) g/dL Globulin 3.6 (1.7-4.1) g/dL Albumin/Globulin Ratio 1.1 (1.0-2.8) Lipase (23-300) U/L TSH (0.47-4.68) uIU/mL Free T4 (0.78-2.19) ng/dL Urine RBC 5-10/hpf H (0-5/HPF) Urine WBC 5-10/hpf H (0-5/HPF) Ur Squamous Epith Cells 1-5 /hpf (0-5/HPF) Ur Transition Epith Cell 0-1/hpf (0-5/HPF) Urine Bacteria Few (2-10) H (None) Urine Mucus 1+ H (Negative) SARS-CoV-2 (PCR) (Negative) 05/11/22 Range/Units 06:00 WBC (4.5-11.0) X10^3/uL RBC (4.5-5.9) X10^6/uL Hgb (13.5-17.5) g/dL Hct (41-53) % MCV (80-100) fL MCH (26-34) PG MCHC (30-36) % RDW (11.6-14.8) % Plt Count (150-400) X10^3/uL Neut % (Auto) (50-75) % Lymph % (Auto) (25-40) % Love % (Auto) (3-14) % Eos % (Auto) (2-4) % Baso % (Auto) (0-2) % Neut # (Auto) (7900-5233) /uL Lymph # (Auto) (6915-9403) /uL Love # (Auto) (0-900) /uL Eos # (Auto) (0-450) /uL Baso # (Auto) (0-100) /uL Sodium (137-145) mmol/L Potassium (3.4-5.1) mmol/L Chloride (98-107) mmol/L Carbon Dioxide (22-32) mmol/L BUN (9-20) mg/dL Creatinine (0.66-1.25) mg/dL Estimated GFR (>60) mL/min BUN/Creatinine Ratio (6-22) Glucose (80-110) mg/dL Calcium (8.4-10.2) mg/dL Magnesium (1.6-2.3) mg/dL Total Bilirubin (0.2-1.3) mg/dL AST (17-59) IU/L ALT (<50) IU/L Alkaline Phosphatase (38-126) U/L Total Creatine Kinase (55-170) U/L CK-MB (CK-2) CK-MB (CK-2) Rel Index Troponin I (0.01-0.034) ng/mL Total Protein (6.3-8.2) g/dL Albumin (3.5-5.0) g/dL Globulin (1.7-4.1) g/dL Albumin/Globulin Ratio (1.0-2.8) Lipase (23-300) U/L TSH 37.40 H (0.47-4.68) uIU/mL Free T4 0.34 L (0.78-2.19) ng/dL Urine RBC (0-5/HPF) Urine WBC (0-5/HPF) Ur Squamous Epith Cells (0-5/HPF) Ur Transition Epith Cell (0-5/HPF) Urine Bacteria (None) Urine Mucus (Negative) SARS-CoV-2 (PCR) (Negative) Urine Dip Bedside Urine Glucose Negative Bedside Urine Bilirubin - Negative Bedside Urine Ketone - Negative Urine Specific [place] 1.015 Bedside Urine Occult Blood +++ Bedside Urine pH 6.0 Bedside Urine Protein - Negative Bedside Urine Urobilinogen - Negative Bedside Urine Nitrite - Negative Bedside Urine Leukocytes + 70 Esterase Imaging Data Chest x-ray: Radiologist's Impression: [address] [address] XRay Report Signed Patient: Gareth Cotter MR#: [id number] : 1950 Acct:[id number] Age/Sex: 72 / M Date of Service: 05/08/22 Loc: ED Accession Number: [id number] ?? Procedure: XR chest 1V Ordering Provider: Mark Singleton MD PROCEDURE:? XR CHEST 1V ? INDICATIONS:? chest pain ? TECHNIQUE:? One view of the chest was acquired.? ? COMPARISON:? [facility], , XR CHEST 1V, 02/25/2022, 14:46. ? FINDINGS:? ? Surgical changes and devices:? None.? ? Lungs and pleura:? Lungs are clear.? No pleural effusions or pneumothorax.? ? Mediastinum:? Mediastinal contours appear normal.? Heart size is normal.? ? Bones and chest wall:? No suspicious bony lesions.? Overlying soft tissues appear unremarkable.? ? IMPRESSION:? ? 1.? No acute cardiopulmonary disease. ? ? ? Dictated by: Nathaniel Barney M.D. on 05/08/2022 at 20:34 ? ? Approved by: Nathaniel Barney M.D. on 05/08/2022 at 20:34 ? ECG Data Interpretation: Normal sinus rhythm rate [address] elevation or depression <Carmina Kulkarni, DO - Last Filed: 05/12/22 17:57> Lab Data Labs: Lab Results 05/08/22 05/08/22 05/08/22 Range/Units 19:22 19:22 19:24 WBC 5.6 (4.5-11.0) X10^3/uL RBC 3.50 L (4.5-5.9) X10^6/uL Hgb 10.8 L (13.5-17.5) g/dL Hct 32.1 L (41-53) % MCV 91.6 (80-100) fL MCH 30.8 (26-34) PG MCHC 33.7 (30-36) % RDW 15.0 H (11.6-14.8) % Plt Count 282 (150-400) X10^3/uL Neut % (Auto) 60.3 (50-75) % Lymph % (Auto) 21.3 L (25-40) % Love % (Auto) 9.8 (3-14) % Eos % (Auto) 7.5 H (2-4) % Baso % (Auto) 1.1 (0-2) % Neut # (Auto) 3400 (9556-6196) /uL Lymph # (Auto) 1200 (2653-7475) /uL Love # (Auto) 600 (0-900) /uL Eos # (Auto) 400 (0-450) /uL Baso # (Auto) 100 (0-100) /uL Sodium 140 (137-145) mmol/L Potassium 4.1 (3.4-5.1) mmol/L Chloride 103 (98-107) mmol/L Carbon Dioxide 29 (22-32) mmol/L BUN 24 H (9-20) mg/dL Creatinine 1.05 (0.66-1.25) mg/dL Estimated GFR > 60 (>60) mL/min BUN/Creatinine Ratio 22.9 H (6-22) Glucose 100 (80-110) mg/dL Calcium 9.5 (8.4-10.2) mg/dL Magnesium 2.2 (1.6-2.3) mg/dL Total Bilirubin 0.6 (0.2-1.3) mg/dL AST 79 H (17-59) IU/L ALT 60 H (<50) IU/L Alkaline Phosphatase 360 H (38-126) U/L Total Creatine Kinase 38 L (55-170) U/L CK-MB (CK-2) TNP CK-MB (CK-2) Rel Index TNP Troponin I < 0.012 (0.01-0.034) ng/mL Total Protein 7.8 (6.3-8.2) g/dL Albumin 4.0 (3.5-5.0) g/dL Globulin 3.8 (1.7-4.1) g/dL Albumin/Globulin Ratio 1.1 (1.0-2.8) Lipase 66 (23-300) U/L TSH (0.47-4.68) uIU/mL Free T4 (0.78-2.19) ng/dL Urine RBC (0-5/HPF) Urine WBC (0-5/HPF) Ur Squamous Epith Cells (0-5/HPF) Ur Transition Epith Cell (0-5/HPF) Urine Bacteria (None) Urine Mucus (Negative) SARS-CoV-2 (PCR) Negative (Negative) 05/08/22 05/11/22 05/11/22 Range/Units 22:13 06:00 06:00 WBC 5.2 (4.5-11.0) X10^3/uL RBC 3.73 L (4.5-5.9) X10^6/uL Hgb 11.4 L (13.5-17.5) g/dL Hct 33.9 L (41-53) % MCV 91.1 (80-100) fL MCH 30.6 (26-34) PG MCHC 33.6 (30-36) % RDW 14.7 (11.6-14.8) % Plt Count 294 (150-400) X10^3/uL Neut % (Auto) 49.5 L (50-75) % Lymph % (Auto) 29.7 (25-40) % Love % (Auto) 7.4 (3-14) % Eos % (Auto) 12.5 H (2-4) % Baso % (Auto) 0.9 (0-2) % Neut # (Auto) 2600 (8743-5137) /uL Lymph # (Auto) 1500 (4007-9678) /uL Love # (Auto) 400 (0-900) /uL Eos # (Auto) 700 H (0-450) /uL Baso # (Auto) 0 (0-100) /uL Sodium 139 (137-145) mmol/L Potassium 4.1 (3.4-5.1) mmol/L Chloride 106 (98-107) mmol/L Carbon Dioxide 25 (22-32) mmol/L BUN 28 H (9-20) mg/dL Creatinine 1.05 (0.66-1.25) mg/dL Estimated GFR > 60 (>60) mL/min BUN/Creatinine Ratio 26.7 H (6-22) Glucose 87 (80-110) mg/dL Calcium 9.5 (8.4-10.2) mg/dL Magnesium (1.6-2.3) mg/dL Total Bilirubin 0.3 (0.2-1.3) mg/dL AST 54 (17-59) IU/L ALT 45 (<50) IU/L Alkaline Phosphatase 392 H (38-126) U/L Total Creatine Kinase (55-170) U/L CK-MB (CK-2) CK-MB (CK-2) Rel Index Troponin I (0.01-0.034) ng/mL Total Protein 7.4 (6.3-8.2) g/dL Albumin 3.8 (3.5-5.0) g/dL Globulin 3.6 (1.7-4.1) g/dL Albumin/Globulin Ratio 1.1 (1.0-2.8) Lipase (23-300) U/L TSH (0.47-4.68) uIU/mL Free T4 (0.78-2.19) ng/dL Urine RBC 5-10/hpf H (0-5/HPF) Urine WBC 5-10/hpf H (0-5/HPF) Ur Squamous Epith Cells 1-5 /hpf (0-5/HPF) Ur Transition Epith Cell 0-1/hpf (0-5/HPF) Urine Bacteria Few (2-10) H (None) Urine Mucus 1+ H (Negative) SARS-CoV-2 (PCR) (Negative) 05/11/22 Range/Units 06:00 WBC (4.5-11.0) X10^3/uL RBC (4.5-5.9) X10^6/uL Hgb (13.5-17.5) g/dL Hct (41-53) % MCV (80-100) fL MCH (26-34) PG MCHC (30-36) % RDW (11.6-14.8) % Plt Count (150-400) X10^3/uL Neut % (Auto) (50-75) % Lymph % (Auto) (25-40) % Love % (Auto) (3-14) % Eos % (Auto) (2-4) % Baso % (Auto) (0-2) % Neut # (Auto) (2708-1713) /uL Lymph # (Auto) (7631-3623) /uL Love # (Auto) (0-900) /uL Eos # (Auto) (0-450) /uL Baso # (Auto) (0-100) /uL Sodium (137-145) mmol/L Potassium (3.4-5.1) mmol/L Chloride (98-107) mmol/L Carbon Dioxide (22-32) mmol/L BUN (9-20) mg/dL Creatinine (0.66-1.25) mg/dL Estimated GFR (>60) mL/min BUN/Creatinine Ratio (6-22) Glucose (80-110) mg/dL Calcium (8.4-10.2) mg/dL Magnesium (1.6-2.3) mg/dL Total Bilirubin (0.2-1.3) mg/dL AST (17-59) IU/L ALT (<50) IU/L Alkaline Phosphatase (38-126) U/L Total Creatine Kinase (55-170) U/L CK-MB (CK-2) CK-MB (CK-2) Rel Index Troponin I (0.01-0.034) ng/mL Total Protein (6.3-8.2) g/dL Albumin (3.5-5.0) g/dL Globulin (1.7-4.1) g/dL Albumin/Globulin Ratio (1.0-2.8) Lipase (23-300) U/L TSH 37.40 H (0.47-4.68) uIU/mL Free T4 0.34 L (0.78-2.19) ng/dL Urine RBC (0-5/HPF) Urine WBC (0-5/HPF) Ur Squamous Epith Cells (0-5/HPF) Ur Transition Epith Cell (0-5/HPF) Urine Bacteria (None) Urine Mucus (Negative) SARS-CoV-2 (PCR) (Negative) Urine Dip Bedside Urine Glucose Negative Bedside Urine Bilirubin - Negative Bedside Urine Ketone - Negative Urine Specific [place] 1.015 Bedside Urine Occult Blood +++ Bedside Urine pH 6.0 Bedside Urine Protein - Negative Bedside Urine Urobilinogen - Negative Bedside Urine Nitrite - Negative Bedside Urine Leukocytes + 70 Esterase MDM Narrative Medical decision making narrative: Patient signed out to me by Dr. Han seen and evaluated patient myself. Overall appears weak it is apparently wheelchair bound has chronic back pain. Sinus primary caregiver for patient however due to recent restraining order, he is unable to get into the house to care for his father. He has tried outpatient resources but is unable to navigate the system. His father needs care. Patient is hungry wanting Rice Krispies and asking for hydrocodone <Lanre Whyte, DO - Last Filed: 05/12/22 16:15> Lab Data Labs: Lab Results 05/08/22 05/08/22 05/08/22 Range/Units 19:22 19:22 19:24 WBC 5.6 (4.5-11.0) X10^3/uL RBC 3.50 L (4.5-5.9) X10^6/uL Hgb 10.8 L (13.5-17.5) g/dL Hct 32.1 L (41-53) % MCV 91.6 (80-100) fL MCH 30.8 (26-34) PG MCHC 33.7 (30-36) % RDW 15.0 H (11.6-14.8) % Plt Count 282 (150-400) X10^3/uL Neut % (Auto) 60.3 (50-75) % Lymph % (Auto) 21.3 L (25-40) % Love % (Auto) 9.8 (3-14) % Eos % (Auto) 7.5 H (2-4) % Baso % (Auto) 1.1 (0-2) % Neut # (Auto) 3400 (3437-5017) /uL Lymph # (Auto) 1200 (2928-1589) /uL Love # (Auto) 600 (0-900) /uL Eos # (Auto) 400 (0-450) /uL Baso # (Auto) 100 (0-100) /uL Sodium 140 (137-145) mmol/L Potassium 4.1 (3.4-5.1) mmol/L Chloride 103 (98-107) mmol/L Carbon Dioxide 29 (22-32) mmol/L BUN 24 H (9-20) mg/dL Creatinine 1.05 (0.66-1.25) mg/dL Estimated GFR > 60 (>60) mL/min BUN/Creatinine Ratio 22.9 H (6-22) Glucose 100 (80-110) mg/dL Calcium 9.5 (8.4-10.2) mg/dL Magnesium 2.2 (1.6-2.3) mg/dL Total Bilirubin 0.6 (0.2-1.3) mg/dL AST 79 H (17-59) IU/L ALT 60 H (<50) IU/L Alkaline Phosphatase 360 H (38-126) U/L Total Creatine Kinase 38 L (55-170) U/L CK-MB (CK-2) TNP CK-MB (CK-2) Rel Index TNP Troponin I < 0.012 (0.01-0.034) ng/mL Total Protein 7.8 (6.3-8.2) g/dL Albumin 4.0 (3.5-5.0) g/dL Globulin 3.8 (1.7-4.1) g/dL Albumin/Globulin Ratio 1.1 (1.0-2.8) Lipase 66 (23-300) U/L TSH (0.47-4.68) uIU/mL Free T4 (0.78-2.19) ng/dL Urine RBC (0-5/HPF) Urine WBC (0-5/HPF) Ur Squamous Epith Cells (0-5/HPF) Ur Transition Epith Cell (0-5/HPF) Urine Bacteria (None) Urine Mucus (Negative) SARS-CoV-2 (PCR) Negative (Negative) 10/27/22 10/30/22 10/30/22 Range/Units 22:13 06:00 06:00 WBC 5.2 (4.5-11.0) X10^3/uL RBC 3.73 L (4.5-5.9) X10^6/uL Hgb 11.4 L (13.5-17.5) g/dL Hct 33.9 L (41-53) % MCV 91.1 (80-100) fL MCH 30.6 (26-34) PG MCHC 33.6 (30-36) % RDW 14.7 (11.6-14.8) % Plt Count 294 (150-400) X10^3/uL Neut % (Auto) 49.5 L (50-75) % Lymph % (Auto) 29.7 (25-40) % Love % (Auto) 7.4 (3-14) % Eos % (Auto) 12.5 H (2-4) % Baso % (Auto) 0.9 (0-2) % Neut # (Auto) 2600 (0165-0150) /uL Lymph # (Auto) 1500 (4249-1855) /uL Love # (Auto) 400 (0-900) /uL Eos # (Auto) 700 H (0-450) /uL Baso # (Auto) 0 (0-100) /uL Sodium 139 (137-145) mmol/L Potassium 4.1 (3.4-5.1) mmol/L Chloride 106 (98-107) mmol/L Carbon Dioxide 25 (22-32) mmol/L BUN 28 H (9-20) mg/dL Creatinine 1.05 (0.66-1.25) mg/dL Estimated GFR > 60 (>60) mL/min BUN/Creatinine Ratio 26.7 H (6-22) Glucose 87 (80-110) mg/dL Calcium 9.5 (8.4-10.2) mg/dL Magnesium (1.6-2.3) mg/dL Total Bilirubin 0.3 (0.2-1.3) mg/dL AST 54 (17-59) IU/L ALT 45 (<50) IU/L Alkaline Phosphatase 392 H (38-126) U/L Total Creatine Kinase (55-170) U/L CK-MB (CK-2) CK-MB (CK-2) Rel Index Troponin I (0.01-0.034) ng/mL Total Protein 7.4 (6.3-8.2) g/dL Albumin 3.8 (3.5-5.0) g/dL Globulin 3.6 (1.7-4.1) g/dL Albumin/Globulin Ratio 1.1 (1.0-2.8) Lipase (23-300) U/L TSH (0.47-4.68) uIU/mL Free T4 (0.78-2.19) ng/dL Urine RBC 5-10/hpf H (0-5/HPF) Urine WBC 5-10/hpf H (0-5/HPF) Ur Squamous Epith Cells 1-5 /hpf (0-5/HPF) Ur Transition Epith Cell 0-1/hpf (0-5/HPF) Urine Bacteria Few (2-10) H (None) Urine Mucus 1+ H (Negative) SARS-CoV-2 (PCR) (Negative) 05/11/22 Range/Units 06:00 WBC (4.5-11.0) X10^3/uL RBC (4.5-5.9) X10^6/uL Hgb (13.5-17.5) g/dL Hct (41-53) % MCV (80-100) fL MCH (26-34) PG MCHC (30-36) % RDW (11.6-14.8) % Plt Count (150-400) X10^3/uL Neut % (Auto) (50-75) % Lymph % (Auto) (25-40) % Love % (Auto) (3-14) % Eos % (Auto) (2-4) % Baso % (Auto) (0-2) % Neut # (Auto) (8329-8593) /uL Lymph # (Auto) (1376-9310) /uL Love # (Auto) (0-900) /uL Eos # (Auto) (0-450) /uL Baso # (Auto) (0-100) /uL Sodium (137-145) mmol/L Potassium (3.4-5.1) mmol/L Chloride (98-107) mmol/L Carbon Dioxide (22-32) mmol/L BUN (9-20) mg/dL Creatinine (0.66-1.25) mg/dL Estimated GFR (>60) mL/min BUN/Creatinine Ratio (6-22) Glucose (80-110) mg/dL Calcium (8.4-10.2) mg/dL Magnesium (1.6-2.3) mg/dL Total Bilirubin (0.2-1.3) mg/dL AST (17-59) IU/L ALT (<50) IU/L Alkaline Phosphatase (38-126) U/L Total Creatine Kinase (55-170) U/L CK-MB (CK-2) CK-MB (CK-2) Rel Index Troponin I (0.01-0.034) ng/mL Total Protein (6.3-8.2) g/dL Albumin (3.5-5.0) g/dL Globulin (1.7-4.1) g/dL Albumin/Globulin Ratio (1.0-2.8) Lipase (23-300) U/L TSH 37.40 H (0.47-4.68) uIU/mL Free T4 0.34 L (0.78-2.19) ng/dL Urine RBC (0-5/HPF) Urine WBC (0-5/HPF) Ur Squamous Epith Cells (0-5/HPF) Ur Transition Epith Cell (0-5/HPF) Urine Bacteria (None) Urine Mucus (Negative) SARS-CoV-2 (PCR) (Negative) Urine Dip Bedside Urine Glucose Negative Bedside Urine Bilirubin - Negative Bedside Urine Ketone - Negative Urine Specific [place] 1.015 Bedside Urine Occult Blood +++ Bedside Urine pH 6.0 Bedside Urine Protein - Negative Bedside Urine Urobilinogen - Negative Bedside Urine Nitrite - Negative Bedside Urine Leukocytes + 70 Esterase MDM Narrative Medical decision making narrative: Patient signed out to me by Dr. Han seen and evaluated patient myself. Overall appears weak it is apparently wheelchair bound has chronic back pain. Sinus primary caregiver for patient however due to recent restraining order, he is unable to get into the house to care for his father. He has tried outpatient resources but is unable to navigate the system. His father needs care. Patient is hungry wanting Rice Krispies and asking for hydrocodone [0700] ([place]) Patient received in sign out from [Areli]. I have reviewed the clinical course and performed an independent history and physical exam. No significant additions at this time 1400 -able to obtain active medication list from primary care office, they have faxed it over. These medications have been ordered. Patient does have chronic back pain and is having some pain, his medications have been ordered. Labs ordered for the morning. Social work has been involved again and there is very little chance of any placement or movement on patient until offices are open on Thursday. 1900 -patient signed out to Dr. Matta for management this evening 05/10/22 [place]: Patient signed out to myself by Dr. Whyte. Patient seen independently evaluated by myself. Patient's home medications have been ordered. He is DNR/DNI social work is involved as there are significant social barriers to patient being discharged but at this time no clear medical cause for admission. 05/12/22 -patient continues to be at baseline. There has been extensive discussion between social work and family and there is a plan (please note MECHANIC CHIEF note) to transport patient home by EMS, home health has been established. Family has been involved with the plan and are in agreement <Mayra Matta, - Last Filed: 05/14/22 10:01> Lab Data Labs: Lab Results 05/08/22 05/08/22 05/08/22 Range/Units 19:22 19:22 19:24 WBC 5.6 (4.5-11.0) X10^3/uL RBC 3.50 L (4.5-5.9) X10^6/uL Hgb 10.8 L (13.5-17.5) g/dL Hct 32.1 L (41-53) % MCV 91.6 (80-100) fL MCH 30.8 (26-34) PG MCHC 33.7 (30-36) % RDW 15.0 H (11.6-14.8) % Plt Count 282 (150-400) X10^3/uL Neut % (Auto) 60.3 (50-75) % Lymph % (Auto) 21.3 L (25-40) % Love % (Auto) 9.8 (3-14) % Eos % (Auto) 7.5 H (2-4) % Baso % (Auto) 1.1 (0-2) % Neut # (Auto) 3400 (3592-1631) /uL Lymph # (Auto) 1200 (6566-9651) /uL Love # (Auto) 600 (0-900) /uL Eos # (Auto) 400 (0-450) /uL Baso # (Auto) 100 (0-100) /uL Sodium 140 (137-145) mmol/L Potassium 4.1 (3.4-5.1) mmol/L Chloride 103 (98-107) mmol/L Carbon Dioxide 29 (22-32) mmol/L BUN 24 H (9-20) mg/dL Creatinine 1.05 (0.66-1.25) mg/dL Estimated GFR > 60 (>60) mL/min BUN/Creatinine Ratio 22.9 H (6-22) Glucose 100 (80-110) mg/dL Calcium 9.5 (8.4-10.2) mg/dL Magnesium 2.2 (1.6-2.3) mg/dL Total Bilirubin 0.6 (0.2-1.3) mg/dL AST 79 H (17-59) IU/L ALT 60 H (<50) IU/L Alkaline Phosphatase 360 H (38-126) U/L Total Creatine Kinase 38 L (55-170) U/L CK-MB (CK-2) TNP CK-MB (CK-2) Rel Index TNP Troponin I < 0.012 (0.01-0.034) ng/mL Total Protein 7.8 (6.3-8.2) g/dL Albumin 4.0 (3.5-5.0) g/dL Globulin 3.8 (1.7-4.1) g/dL Albumin/Globulin Ratio 1.1 (1.0-2.8) Lipase 66 (23-300) U/L TSH (0.47-4.68) uIU/mL Free T4 (0.78-2.19) ng/dL Urine RBC (0-5/HPF) Urine WBC (0-5/HPF) Ur Squamous Epith Cells (0-5/HPF) Ur Transition Epith Cell (0-5/HPF) Urine Bacteria (None) Urine Mucus (Negative) SARS-CoV-2 (PCR) Negative (Negative) 05/08/22 05/11/22 05/11/22 Range/Units 22:13 06:00 06:00 WBC 5.2 (4.5-11.0) X10^3/uL RBC 3.73 L (4.5-5.9) X10^6/uL Hgb 11.4 L (13.5-17.5) g/dL Hct 33.9 L (41-53) % MCV 91.1 (80-100) fL MCH 30.6 (26-34) PG MCHC 33.6 (30-36) % RDW 14.7 (11.6-14.8) % Plt Count 294 (150-400) X10^3/uL Neut % (Auto) 49.5 L (50-75) % Lymph % (Auto) 29.7 (25-40) % Love % (Auto) 7.4 (3-14) % Eos % (Auto) 12.5 H (2-4) % Baso % (Auto) 0.9 (0-2) % Neut # (Auto) 2600 (3860-4693) /uL Lymph # (Auto) 1500 (0623-3134) /uL Love # (Auto) 400 (0-900) /uL Eos # (Auto) 700 H (0-450) /uL Baso # (Auto) 0 (0-100) /uL Sodium 139 (137-145) mmol/L Potassium 4.1 (3.4-5.1) mmol/L Chloride 106 (98-107) mmol/L Carbon Dioxide 25 (22-32) mmol/L BUN 28 H (9-20) mg/dL Creatinine 1.05 (0.66-1.25) mg/dL Estimated GFR > 60 (>60) mL/min BUN/Creatinine Ratio 26.7 H (6-22) Glucose 87 (80-110) mg/dL Calcium 9.5 (8.4-10.2) mg/dL Magnesium (1.6-2.3) mg/dL Total Bilirubin 0.3 (0.2-1.3) mg/dL AST 54 (17-59) IU/L ALT 45 (<50) IU/L Alkaline Phosphatase 392 H (38-126) U/L Total Creatine Kinase (55-170) U/L CK-MB (CK-2) CK-MB (CK-2) Rel Index Troponin I (0.01-0.034) ng/mL Total Protein 7.4 (6.3-8.2) g/dL Albumin 3.8 (3.5-5.0) g/dL Globulin 3.6 (1.7-4.1) g/dL Albumin/Globulin Ratio 1.1 (1.0-2.8) Lipase (23-300) U/L TSH (0.47-4.68) uIU/mL Free T4 (0.78-2.19) ng/dL Urine RBC 5-10/hpf H (0-5/HPF) Urine WBC 5-10/hpf H (0-5/HPF) Ur Squamous Epith Cells 1-5 /hpf (0-5/HPF) Ur Transition Epith Cell 0-1/hpf (0-5/HPF) Urine Bacteria Few (2-10) H (None) Urine Mucus 1+ H (Negative) SARS-CoV-2 (PCR) (Negative) 05/11/22 Range/Units 06:00 WBC (4.5-11.0) X10^3/uL RBC (4.5-5.9) X10^6/uL Hgb (13.5-17.5) g/dL Hct (41-53) % MCV (80-100) fL MCH (26-34) PG MCHC (30-36) % RDW (11.6-14.8) % Plt Count (150-400) X10^3/uL Neut % (Auto) (50-75) % Lymph % (Auto) (25-40) % Love % (Auto) (3-14) % Eos % (Auto) (2-4) % Baso % (Auto) (0-2) % Neut # (Auto) (4662-8366) /uL Lymph # (Auto) (9289-8500) /uL Love # (Auto) (0-900) /uL Eos # (Auto) (0-450) /uL Baso # (Auto) (0-100) /uL Sodium (137-145) mmol/L Potassium (3.4-5.1) mmol/L Chloride (98-107) mmol/L Carbon Dioxide (22-32) mmol/L BUN (9-20) mg/dL Creatinine (0.66-1.25) mg/dL Estimated GFR (>60) mL/min BUN/Creatinine Ratio (6-22) Glucose (80-110) mg/dL Calcium (8.4-10.2) mg/dL Magnesium (1.6-2.3) mg/dL Total Bilirubin (0.2-1.3) mg/dL AST (17-59) IU/L ALT (<50) IU/L Alkaline Phosphatase (38-126) U/L Total Creatine Kinase (55-170) U/L CK-MB (CK-2) CK-MB (CK-2) Rel Index Troponin I (0.01-0.034) ng/mL Total Protein (6.3-8.2) g/dL Albumin (3.5-5.0) g/dL Globulin (1.7-4.1) g/dL Albumin/Globulin Ratio (1.0-2.8) Lipase (23-300) U/L TSH 37.40 H (0.47-4.68) uIU/mL Free T4 0.34 L (0.78-2.19) ng/dL Urine RBC (0-5/HPF) Urine WBC (0-5/HPF) Ur Squamous Epith Cells (0-5/HPF) Ur Transition Epith Cell (0-5/HPF) Urine Bacteria (None) Urine Mucus (Negative) SARS-CoV-2 (PCR) (Negative) Urine Dip Bedside Urine Glucose Negative Bedside Urine Bilirubin - Negative Bedside Urine Ketone - Negative Urine Specific [place] 1.015 Bedside Urine Occult Blood +++ Bedside Urine pH 6.0 Bedside Urine Protein - Negative Bedside Urine Urobilinogen - Negative Bedside Urine Nitrite - Negative Bedside Urine Leukocytes + 70 Esterase MDM Narrative Medical decision making narrative: Patient signed out to me by Dr. Han seen and evaluated patient myself. Overall appears weak it is apparently wheelchair bound has chronic back pain. Sinus primary caregiver for patient however due to recent restraining order, he is unable to get into the house to care for his father. He has tried outpatient resources but is unable to navigate the system. His father needs care. Patient is hungry wanting Rice Krispies and asking for hydrocodone [0700] ([place]) Patient received in sign out from [Areli]. I have reviewed the clinical course and performed an independent history and physical exam. No significant additions at this time 1400 -able to obtain active medication list from primary care office, they have faxed it over. These medications have been ordered. Patient does have chronic back pain and is having some pain, his medications have been ordered. Labs ordered for the morning. Social work has been involved again and there is very little chance of any placement or movement on patient until offices are open on Thursday. 1900 -patient signed out to Dr. Matta for management this evening 05/10/22 [place]: Patient signed out to myself by Dr. Whyte. Patient seen independently evaluated by myself. Patient's home medications have been ordered. He is DNR/DNI social work is involved as there are significant social barriers to patient being discharged but at this time no clear medical cause for admission. 05/11/22 Mank: patient signed out to myself by Dr. Whyte from day shift. Patient requested medication for sleep. Had xanax that night before which was effective. No additional issues overnight. Patient signed back out to Dr. Whyte in am with plan for disposition today. 05/12/22 -patient continues to be at baseline. There has been extensive discussion between social work and family and there is a plan (please note MECHANIC CHIEF note) to transport patient home by EMS, home health has been established. Family has been involved with the plan and are in agreement <Lanre Whyte, DO - Last Filed: 05/12/22 16:15> Critical Care Time Total Critical Care Time: 100 Attestation: The high probability of a clinically significant, sudden or life threatening de terioration of the [CV/Neuro] system(s) required my full and direct attention, intervention and personal management. The aggregate critical care time was [100] minutes. This time is in addition to time spent performing reported procedures but includes the following: [x] Data Review and interpretation [x] Patient assessment and monitoring of vital signs [x] Documentation [x] Medication orders and management Discharge Plan Departure Patient Disposition: Home Clinical Impression: Atypical chest pain, Adult failure to thrive Activity Restrictions/Additional Instructions: *You have been diagnosed with [atypical chest pain, failure to thrive ] *What to do: *Please continue to take your regular medications as directed. *Please follow up with your primary care provider in 2-3 days, call for an appointment. Let them know you were seen in the Emergency Department and that we ask that you be seen in follow up. We will electronically transmit a record of today's note if your PCP is in our system *Return to Emergency Department if you should have any new, worsening or concerning symptoms Prescriptions: No Action sertraline 50 mg tablet 50 mg PO DAILY levothyroxine 125 mcg tablet 150 mcg PO DAILY meclizine 12.5 mg Tablet 25 mg PO Q6HR PRN (Reason: Vertigo) Qty: 15 0RF clopidogrel 75 mg Tablet 75 mg PO DAILY Qty: 30 0RF hydrocodone-acetaminophen 10-325 mg Tablet 1 tab PO Q4HR PRN (Reason: Pain, Moderate (4-6)) Qty: 20 0RF hydroxyzine HCl 25 mg Tablet 25 mg PO QID PRN (Reason: Itching) lovastatin 40 mg Tablet 40 mg PO QPM Referrals: Robles Mane MD [Primary Care Provider] - Visit Report Forms: Patient Portal/API
[2022-05-08] MEDS: ASPIRIN 81 MG CHEW TAB 324 MG PO (20:25)
--- NOTE | 2022-05-08 21:34 | PC.NURSE ---
TOPOGRAPHIC COMPUTATOR note: Son, Wander, left his phone number: [phone]. He left for the night. He says Dad has Alzheimers disease, and it's hard for him at night. Told him I would pass that on to everyone who cares for him.
[2022-05-08 22:29] LABS: RBC Urine 5-10/HPF (0-5/HPF); WBC Urine 5-10/HPF (0-5/HPF)
[2022-05-08 22:30] LABS: Bacteria Urine Few (2-10); Mucus Urine 1+ (Negative); Squamous Epithelial Cell Urine 1-5 /HPF (0-5/HPF); Transitional Epi Cells Urine 0-1/HPF (0-5/HPF)
[2022-05-09] VITALS (20 sets, daily range): BP systolic 105–150; BP diastolic 57–76; PULSE 43–63; RESP 13–27
--- NOTE | 2022-05-09 08:22 | PC.NURSE ---
responded to pt call [place], pt reports feeling wet. brief changed, urine only. pericare provided, new brief applied. multiple warm blankets provided. pt oriented to call light, denies additional needs.
--- NOTE | 2022-05-09 09:20 | PC.NURSE ---
Spoke with CHARITY Santana regarding patient.
[2022-05-09] MEDS: HYDROCODONE/ACET 5/325 TABLET 1 TAB PO (09:48)
--- NOTE | 2022-05-09 09:57 | PC.NURSE ---
Given cereal food tray upon request.
--- NOTE | 2022-05-09 12:07 | CM.DANOTE ---
Addendum entered by CAHRITY Yadav 05/09/22 12:35: ADD: Per son Shane- No disposable income available (from patient or family) to pay for in home vs facility care at this time JW Original Note: Initial DCP Assessment Note Pt is a 72 yo male, resident [facility], presents w/son for complaint of chest pain, PMH significant for Alz dementia, son/DPOA Shane states patient is DNR/comfort measures so no stress test or cardiac w/u This SORT WORKER requested for consult this morning to assess needs and assist in discharge planning for this patient, as son Shane requesting placement, tells ER staff he cannot take patient home because patient does not have a home to go to as son and his spouse are in the middle of a divorce and spouse cannot care for patient in her/their home PCP: Robles M[facility] Payer: Jian BROWN Reviewed chart, discussed w/ Dr Kulkarni and then placed call to son Shane, son tearful throughout. according to our conversation: Son and his spouse have been primary caregivers for patient, patient needs assist w/almost all ADLs according to son and has exhibited sun downing behavior. Patient ambulatory, does have bad days when patient mostly bed bound. Patient has hx w/HH, Hospice and SNF- prior stay at [facility]. Son further explains that he is in the middle of a divorce and is not currently allowed in his home, where patient, dtr in law, 8 and 14 yo grandchildren live. Son is concerned that his spouse cannot safely care for patient and neither can he, both work timekeeping supervisor, and patient's needs have recently increased. Son states he is DPOA, has access to patient's bank account, and hopeful patient can discharge to a care facility; SNF vs director long term care care Patient and family have applied for [facility]TAN/termite control technician care and son states this is pending because they have not been able to provide some of patient's asset verification Call to [facility]; patient's assigned social media strategist: Ginette Skinner P# P#[phone], she is back in the office ThursdayMay 12. Explained to son that patient has no medical reason for being in the ER or admitted to the acute care floor; dispo options will be reviewed w/son and effort will be taken to secure the safest dispo option available to patient; son may inevitably need to take patient home w/outpatient supports, son stated understanding. Son expresses concern that neither he or his can safely care for his dad at this time and hopeful facility care is an option CHARITY Mcgill Discharge Planning/Care Management CM Discharge Assessment Start: 05/09/22 11:21 Freq: Status: Active Protocol: Document 05/09/22 11:21 ERIC (Rec: 05/09/22 12:07 ERIC [id number]) Discharge Planning Assessment Assigned Lighter Captain CHARITY Ribeiro DPOA/Assigned Designee Name Wander Cotter, son/DPOA Contact Information [phone] Advance Directives? Yes: DNR Advance Directives on File No History Provided By Patient,Family Member,Medical Record Prior Living Arrangements House Household Members children Comment Had lived w/son, his and their two children 8 and 14yo Type of transporation used prior to Relies on Others admit Comment Did not go out much Independent with ADL's No Is patient alert and oriented? No Needs Assistance With Bathing,Grooming,Meal Prep, Toileting,Managing Medications ,Home Chores / Shopping Comment Son and (currently going through a divorce) have been patient's primary caregivers, both son and own/operate their own businesses Community Services used prior to Home Health Aid,Home Health admission: Nurse Comment [facility], SNF, attempt at in home care through [facility] which failed per son Comment Able to ambulate, however- poor activity tolerance Comment Here for placement, increased care required. No viable home option at this time. Needs have outweighed abilities of caregivers at home Comment Updated Dr Kulkarni Barriers to Discharge Yes Comment See narrative Discharge Plan [facility] Additional Comment See narrative If patient plan is home with home health No : Has signed face to face form been completed? If patient plan is SNF: Has PASSR been No completed?
--- NOTE | 2022-05-09 12:52 | CM.SWNOTE ---
Addendum entered by Jalyn Keen 05/11/22 14:17: ANIMAL SITTER note continued: Reviewed record with CHARITY/Monique re: planning. Placed call to patient's DIL/Michaela to get more information re: patient's inability to return home? Michaela reports that she is DIL and that patient's DPOA is son/Shane. Michaela reports that she is looking for paperwork to provide to [facility]. In the meantime, ANIMAL SITTER notified Michaela that patient is medically cleared to return home. Michaela reports that Shane is attempting long-term placement with the state. As of now no place has been found. Notified Michaela that it is in patient's best interest not to stay in [facility]'s ED. Encouraged Michaela to allow patient to return home with home health until long-term placement can be found by state. Michaela somewhat hesitant but understands patient does not meet any criteria to remain in ED or acute care. Michaela reports son Shane is currently not allowed in residence due to restraining order. Patient going to court on 05-19-22 per Michalea she is hopeful Shane will be able to return to residence. Initially, Michaela open to having patient return to residence however, after conversation Shane called ANIMAL SITTER and began getting very agitated with CM team for not placing patient in long-term placement. CM team clearly indicate to son that patient does not meet criteria to remain in ED or admitted to acute care. Son got verbally aggressive with ANIMAL SITTER and CM steam and gas turbine assembler Charity indicating that he will just come pick my dad up tomorrow. Son offered home health and declined. Son provided no clear explanation of d/c plan. However, he does indicate that this has been going on for 3 years? One minute son indicates that he does does not have access to financial statements of patient and next he reports he has all financial responsibility? Patient seen by therapy and home recommended. Patient currently at his baseline. Patient's behavior in the hospital has been appropriate. At this time patient medically cleared and going to discharge from ED with home health through [facility]. No documentation of inappropriate behavior noted. P: Home with son? with home health through [facility]. Son notified patient does not meet criteria to remain in ED and he continues to be at his baseline. A.P.S. to be notified by CM team for neglect, concern for financial exploitation and abandonment. CHARITY Duque Addendum entered by CHARITY Foster 05/09/22 18:29: JEOVANY called pt's son, Shane to provide update on PT evaluation and request DPOA documentation. SW left voicemail requesting a return call. CHARITY Foster Addendum entered by CHARITY Foster 05/09/22 16:02: Per earlier discussion, pt's son Shane reports that he is currently staying at his place of work on the couch and is not allowed back at the house. Pt's [id number] Michaela works maritime guard and cannot take care of patient at the home. Awaiting recs from PT. CHARITY Foster Original Note: ED ANIMAL SITTER note Pt is a 72 yo male, resident of [place], presents w/son for complaint of chest pain, PMH significant for Alz dementia, son/DPOA Shane states patient is DNR/comfort measures so no stress test or cardiac w/u. ANIMAL SITTER consulted to assist with placement, as pt's son is no longer able to take care of him at home. PCP: Robles M[facility]. Payer: [employer] Medicare. JEOVANY met with pt's son, Shane to discuss discharge options from the ED. Shane reports that he is DPOA but does not currently have access to paperwork, due to a restraining order between him and his estranged , Michaela. JEOVANY offered to call Michaela to request copy of paperwork and Shane was agreeable. JEOVANY called Michaela [phone] and she confirmed that she can email the documents over as soon as possible. Shane reports that he has been working with [facility] and [facility] to set pt up with senior care care. Shane reports that pt was assigned an AF daily rate of $119.17. Placement was put on hold because [facility] has been unable to verify pt's assets. Shane reports that he moved pt to [place] from [place] 3 years ago. Shane has been unable to locate bank accounts or summary of assets from pt's time in [place]. When pt moved to [place], Shane opened an account for him. Pt's [facility] worker, Ginette Skinner P#[phone] is out of the office until Saturday 05/12. JEOVANY provided psychoeducation for Shane regarding skilled vs long-term care. SW reports that we can have PT assess pt to see if he meets criteria for skilled placement. If he does meet criteria, we can attempt to place him in a SNF while Shane continues to work on getting access to pt's finances. SW consulted with ED provider, who is agreeable to plan. SW called PT, who will attempt to see pt this afternoon. Plan: Continue to follow pt in ED and make referrals based on recommendations from provider and PT. CHARITY Foster
--- NOTE | 2022-05-09 15:00 | PT.IIE ---
Medical History (Last Reviewed 05/08/22 @ 20:25 by Mark Singleton MD) Cerebrovascular accident Chronic GERD Dementia Hyperlipidemia Hypertension Physical Therapy Inpatient Evaluation/Re-Eval M1 PT/OT-IP Prior Functional Status Start: 05/09/22 16:02 Freq: Status: Active Protocol: Document 05/09/22 15:00 AB (Rec: 05/09/22 16:21 AB [id number]) Medical Review Prior Functional Status Medical History Reviewed Yes Communication able to make needs known Mobility and Gait pt stated that his son assists him with all mobility needs. stated that he usually just stays in bed, uses a urinal but ambulated to the toilet if needed using either a FWW/4WW with his son assisting. Pt stated that the most he can ambulate is 15 ft. pt stated that he uses a manual w/c for long distance mobility Social History Household Members children Living Arrangements House Number of Floors (Floors) One Floor Number of Stairs To Enter/Railing? pt has steps to etner the house but stated that his son lifts him up on his w/c to enter the house Home Environment Standard Height Toilet,Tub/ Shower Home Equipment Front Wheel Walker,Four Wheel Walker,Manual Wheelchair,Grab Bars Near Toilet,Grab Bars In Shower Additional Social History Comment pt has a hospital bed M2 PT-IP Current Condition Start: 05/09/22 16:02 Freq: Status: Active Protocol: Document 05/09/22 15:00 AB (Rec: 05/09/22 16:21 AB [id number]) Physical Therapy Current Condition Current Condition Evaluation Date 05/09/22 Treatment Diagnosis chest pain; difficulty in walking Onset Date 05/09/22 M3 PT-IP Subjective Start: 05/09/22 16:02 Freq: Status: Active Protocol: Document 05/09/22 15:00 AB (Rec: 05/09/22 16:21 AB [id number]) Subjective Physical Therapy Visit Type Type Initial Evaluation Visit Start Time 15:00 Visit Stop Time 15:37 Total Visit Minutes 37 Number of EMPLOYMENT ASSISTANT Visits 0 M4 PT-IP Mobility and Gait Start: 05/09/22 16:02 Freq: Status: Active Protocol: Document 05/09/22 15:00 AB (Rec: 05/09/22 16:21 AB [id number]) PT-Bed Mobility Assessment Supine to Sit Supine to Sit Maximum Assistance,Head of Bed Elevated Sit to Supine Sit to Supine Standby Assistance,Head of Bed Elevated PT-Transfer Assessment Sit to and From Stand Sit to and from Stand Minimal Assistance,1 Person Assistance,Use of Upper Extremities Equipment Transfer Assistive Device Front Wheeled Walker Orthotic/Prosthetic Devices or Brace: No Comments Mobility Comments pt completed supine to sit max A and cues. able to sit on EOB SBA. completed sit to stand min A and able to take steps min A using FWW ~ 5 ft. pt requested to go back to bed. completed sit to supine SBA. positioned pt in bed. call light and table placed within reach. pt can be impulsive and resistive to care but amenable after education provided. Talked with manager of case management regarding pt's mobility and informed that pt is at PLOF and no PT intervention indicated at this time. Gait Assessment Gait Gait Assistance Required: Minimum Assistance Distance (Feet) 5 Able to Maintain Weight Bearing Status Yes During Gait Assistive Devices Assistive Device Gait Belt,Front Wheeled Walker Gait Deviations General Gait Pattern Decreased Stride Length, Decreased Feet Clearance,Step- to Gait Factors Limiting Gait Function Factors Limiting Gait Function Decreased Activity Tolerance, Decreased Strength,Difficulty Following Directions,Limited Range of Motion,Poor Balance, Poor Safety Awareness PT-Balance Assessment Sitting Balance and Reactions Static Sitting Balance Ability Good Dynamic Sitting Balance Ability Good Standing Balance and Reactions Static Standing Balance Ability Fair Dynamic Standing Balance Ability Fair Device Used FWW M5 PT-IP Objective Assessments Start: 05/09/22 16:02 Freq: Status: Active Protocol: Document 05/09/22 15:00 AB (Rec: 05/09/22 16:21 AB [id number]) Orientation Orientation/Cognition Level of Alertness Alert Orientation Name Safety Awareness Decreased Safety Awareness Gross Range of Motion Lower Extremity ROM Assessment Within Functional Limits Strength Lower Extremity Strength Assessment Left Impaired Hip 3+/5 Knee 4-/5 Muscle Tone Muscle Tone WNL Yes M6 PT-IP Treatment Start: 05/09/22 16:02 Freq: Status: Active Protocol: Document 05/09/22 15:00 AB (Rec: 05/09/22 16:21 AB [id number]) Physical Therapy Treatment Education Education Provided Safety M7 PT-IP Assessment and Plan Start: 05/09/22 16:02 Freq: Status: Active Protocol: Document 05/09/22 15:00 AB (Rec: 05/09/22 16:21 AB [id number]) PT Summary Assessment and Plan Potential Rehabilitation Potential Fair Status of Condition at Evaluation Stable Summary Impairments Pain,ROM,Strength,Balance, Coordination,Sensation,Tone, Cognition,Bed Mobility, Transfers,Gait,Activity Tolerance Assessment Summary Pt admitted in the hospital last September 2021 for CVA and pt d/c to SNF. pt went home and per pt, son has been assisting pt at home. Pt has minimal activities at home and mostly stays in bed. pt stated that his son assists him with all tasks. PT eval completed and pt is at [facility] and need one person assist and no further PT interventions indicated at this time. informed manager of case management. Per EMR, pt's son will not be able to assist pt due to current situation where son will not be available at home to assist pt. pt will need 24/ assist and possibly LTC placement. Frequency of Treatment Frequency Of Treatment Discharge Recommendations To Nursing Amount of Assist Needed 1 Person Assist Discharge Recommendations Transportation Needs at Discharge Private Vehicle,Wheelchair/ Cabulance
[2022-05-09] MEDS: diphenhydrAMINE 25 MG TABLET PO (23:20)
[2022-05-09] MEDS: ALPRAZolam 0.5 MG TABLET PO (23:35)
[2022-05-10] VITALS (9 sets, daily range): BP systolic 107–181; BP diastolic 60–76; PULSE 46–62; RESP 16–18; TEMP 36.5–36.9; O2SAT 92–99
--- NOTE | 2022-05-10 00:58 | PC.NURSE ---
Patient denied chest pain. Cooperative with care.
--- NOTE | 2022-05-10 01:04 | PC.NURSE ---
Notified provider that I spoke to patient's son today about getting a medication list, son stated he would work on bringing one in tomorrow.
--- NOTE | 2022-05-10 07:35 | PC.NURSE ---
Pt resting with eyes closed, bilateral chest rise and fall, in no apparent distress.
--- NOTE | 2022-05-10 09:45 | PC.NURSE ---
Pt ate all of his breakfast, finished 8oz of water. Pt's brief and all of his bedding was changed out, given warm blankets.
--- NOTE | 2022-05-10 11:58 | PC.NURSE ---
Pt resting quietly, in no apparent distress, brief and blankets changed, barrier cream applied to sacral area.
--- NOTE | 2022-05-10 14:11 | CM.DPC ---
DCP Note Patient continues to board in ED. HOSE SPRAYER reviews EMR. HOSE SPRAYER calls PT, it is reported that patient has been evaluated and presents at baseline requiring 1 person max assist with recommendation for buttermaker helper care. It is reported that patient has been discontinued for PT services as patient presents at prior level of functioning. HOSE SPRAYER unable to seek out SNF rehab for patient due to this barrier. HOSE SPRAYER calls patient's son Shane (Ph. # [phone]). HOSE SPRAYER reviews results from PT evaluation and endorses that patient does not meet criteria for SNF rehab. Son reports that he is residing out of his car, and there is no where for patient to return to and there are no other family members that can assist in patient's care. Son reports he was caregiver for patient but due to being kicked out of home with current restraining order from home, there is no current place for patient to reside. HOSE SPRAYER asks about DPOA paperwork and identifying patient's assets to complete HCS application, patient endorses he does not have access to DPOA records at the home due to a restraining order and he has provided all information he has to the state about patient's assets. Son reports that patient spent his money on buying a trailer, car and gifted money as well. Son reports that he has no current resources to provide care for patient. HOSE SPRAYER requests son to return call if he identifies helpful information in determining POC for patient. Per EMR, clerical car checker have had similar conversations with son about accessing finances, DPOA records and continuing to seek snf care. HOSE SPRAYER calls patient's Daughter in Law Jennings (ph. # [phone]) and leaves regarding requesting DPOA documentation. HOSE SPRAYER reports to APS due to patient's need for care and no safe place to return to. APS Online Report Confirmation Number: [id number] HOSE SPRAYER calls [facility] JEOVANY Skinner (Ph. # [phone]) and leaves requesting return call for coordinating care when she returns to office on Thursday05/12/22. HOSE SPRAYER reviews this with ED provider. Plan: continue to coordinate with patient's son, [facility] worker, and f/u with APS investigation. Patient to continue to board in ED. ALLISON Bowles
--- NOTE | 2022-05-10 15:10 | PC.NURSE ---
Pt resting quietly, blankets changed and pillows added to assist with pressure areas, given 8oz of water and
--- NOTE | 2022-05-10 16:55 | PC.NURSE ---
Q-12 assessment: Pt has dementia at baseline; he is bed-bound, homeless, his caregiver (son) lives in a car, family unable/unwilling to care for patient. Pt requires assistance with activities of daily living. Pt incontinent.
--- NOTE | 2022-05-10 17:45 | PC.NURSE ---
Pt finished all of his dinner (chicken, mashed potatoes, broccoli, dessert), brief changed, new bedding and warm blankets.
--- NOTE | 2022-05-10 17:57 | PC.NURSE ---
Spoke with pt's son, Sudhakar [phone], at patient's request. Son states he is still at work but plans to come see patient later this evening. Pt advised.
--- NOTE | 2022-05-10 19:15 | PC.NURSE ---
Report received - assumed care of pt at this time - resting quietly in NAD - no needs voiced at this time - PWD with respirations equal and unlabored bilaterally
--- NOTE | 2022-05-10 19:45 | PC.NURSE ---
adult brief changed at this time - small area of sacral redness noted to the left side - pt relates that it is sore when touched - barrier cream applied to site - pt encouraged to change positions as able to relieve pressure to the site
--- NOTE | 2022-05-10 20:30 | PC.NURSE ---
ice water given at pt request
[2022-05-10] MEDS: MELATONIN 3 MG TABLET PO (20:59)
[2022-05-10] MEDS: SERTRALINE 50 MG TABLET PO (20:59)
--- NOTE | 2022-05-10 21:20 | PC.NURSE ---
Addendum entered by Rhonda Boland R.N. 05/11/22 04:36: given at 2058 Original Note: Medicated for the evening - assisted to readjust onto the right side for comfort - pillow placed under the left hip - warm blanket given for comfort - lights dimmed to allow the patient to sleep
--- NOTE | 2022-05-11 00:15 | PC.NURSE ---
RN to bedside - pt requesting medication for him to sleep - states that he wants melatonin - but reminded he was given that - states that was fucking hours ago - asked to please refrain from using profanity at the RN so he states excuse me, get me some pills - MD aware of pt's request
[2022-05-11] MEDS: ALPRAZolam 0.5 MG TABLET PO ×2 (00:30→22:28)
--- NOTE | 2022-05-11 00:30 | PC.NURSE ---
medicated with xanax at this time
--- NOTE | 2022-05-11 01:30 | PC.NURSE ---
Resting quietly in NAD - no needs voiced - PWD with respirations equal and unlabored bilaterally
--- NOTE | 2022-05-11 02:30 | PC.NURSE ---
No changes in pt status
--- NOTE | 2022-05-11 03:30 | PC.NURSE ---
No changes in pt status at this time
--- NOTE | 2022-05-11 04:30 | PC.NURSE ---
No changes in pt status
--- NOTE | 2022-05-11 05:50 | PC.NURSE ---
states that he is wet at this time - requesting brief change
--- NOTE | 2022-05-11 05:55 | PC.NURSE ---
lab at bedside for morning blood draw
--- NOTE | 2022-05-11 06:00 | PC.NURSE ---
adult brief changed at this time
[2022-05-11 06:12] LABS: Add Manual Diff / Slide Review NO; Basophils Absolute Auto 0 /uL (0-100); Basophils Percent Auto 0.9 % (0-2); Eosinophils Absolute Auto 700 /uL (0-450); Eosinophils Percent Auto 12.5 % (2-4); Hematocrit 33.9 % (41-53); Hemoglobin 11.4 g/dL (13.5-17.5); Lymphocytes Absolute Auto 1500 /uL (1100-4500); Lymphocytes Percent Auto 29.7 % (25-40); Mean Corpuscular HGB Conc 33.6 % (30-36); Mean Corpuscular Hemoglobin 30.6 PG (26-34); Mean Corpuscular Volume 91.1 fL (80-100); Monocytes Absolute Auto 400 /uL (0-900); Monocytes Percent Auto 7.4 % (3-14); Neutrophils Absolute Auto 2600 /uL (1500-7000); Neutrophils Percent Auto 49.5 % (50-75); Platelet Count 294 X10^3/uL (150-400); Red Blood Cell Count 3.73 X10^6/uL (4.5-5.9); Red Cell Distribution Width 14.7 % (11.6-14.8); White Blood Cell Count 5.2 X10^3/uL (4.5-11.0)
[2022-05-11 06:18] LABS: Alanine Aminotransferase 45 IU/L (<50); Albumin 3.8 g/dL (3.5-5.0); Albumin Globulin Ratio 1.1 (1.0-2.8); Alkaline Phosphatase 392 U/L (38-126); Aspartate Aminotransferase 54 IU/L (17-59); BUN Creatinine Ratio 26.7 (6-22); Bilirubin Total 0.3 mg/dL (0.2-1.3); Blood Urea Nitrogen 28 mg/dL (9-20); Calcium 9.5 mg/dL (8.4-10.2); Carbon Dioxide 25 mmol/L (22-32); Chloride 106 mmol/L (98-107); Estimated Glomerular Filt Rate > 60 mL/min (>60); Globulin 3.6 g/dL (1.7-4.1); Glucose 87 mg/dL (80-110); HEMOLYSIS < 15 (0-50); Potassium 4.1 mmol/L (3.4-5.1); Sodium 139 mmol/L (137-145); Total Protein 7.4 g/dL (6.3-8.2)
--- NOTE | 2022-05-11 07:16 | PC.NURSE ---
Report to dayshift RN team - care relinquished at this time
[2022-05-11 07:19] LABS: Free T4, Direct Thyroxine 0.34 ng/dL (0.78-2.19)
[2022-05-11] MEDS: LEVOTHYROXINE 150 MCG TABLET PO (09:24)
[2022-05-11] MEDS: HYDROCODONE/ACET 5/325 TABLET 2 TAB PO (09:25)
[2022-05-11] MEDS: CLOPIDOGREL 75 MG TABLET PO (09:25)
[2022-05-11] MEDS: ENOXAPARIN 40 MG/0.4 ML SYRINGE SUBCUT (09:25)
[2022-05-11 09:35] VITALS: PULSE 54; O2SAT 99
[2022-05-11 09:36] VITALS: BP 135/76; PULSE 53; O2SAT 98
--- NOTE | 2022-05-11 13:00 | PC.NURSE ---
Elsa care, new brief, bed bath, bedding changed and warm blankets applied at 1200. Pt is resting quietly with eyes closed, lights dimmed in the room. Skin p/w/d and in no apparent distress.
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
--- NOTE | 2022-05-11 15:55 | CM.SWNOTE ---
Addendum entered by Monique Jaffe 05/11/22 16:08: TRANSPORTATION ECONOMICS TEACHER submits APS referral regarding new concerns from conversations with patient son. See case note from Jalyn NASH and Charity RN. APS Online Report Confirmation Number: [id number] ALLISON Bowles Original Note: TRANSPORTATION ECONOMICS TEACHER Note TRANSPORTATION ECONOMICS TEACHER reviews patient with Jalyn NASH and Charity and commissions manager. TRANSPORTATION ECONOMICS TEACHER is present while Jalyn TRANSPORTATION ECONOMICS TEACHER calls patient's daughter in law Michaela(Ph. # [phone]) to coordinate d/c plan to home with HH. Michaela states that patient's son Frank and daughter in law Marisol (Ph. # [phone]) may be able to assist in care of patient or patient may be able to d/c to their home. It is reported to this TRANSPORTATION ECONOMICS TEACHER that patient's son Shane calls Jalyn NASH and presents with aggression (see note from Jalyn NASH and Chariyt RN). Shane eventually reports that he will milk pickup truck driver his father tomorrow, but cannot provide address that patient will be staying. This TRANSPORTATION ECONOMICS TEACHER calls Michaela and leaves requesting return call to set up location for HH. This TRANSPORTATION ECONOMICS TEACHER calls Marisol patient's other daughter in law to coordinate d/c plan, TRANSPORTATION ECONOMICS TEACHER leaves requesting return call. ED provider signs F2F for HH referral for patient. Family does not report preference for HH, TRANSPORTATION ECONOMICS TEACHER calls Jadiel at [facility] due to HH agency rotation. TRANSPORTATION ECONOMICS TEACHER leaves for Jadiel regarding patient referral. F2F is scanned into patient file as Jadiel has access to [facility]. HH referral submitted for svetlana, RN, OT, PT and TRANSPORTATION ECONOMICS TEACHER. TRANSPORTATION ECONOMICS TEACHER reviews this with ED team and reports concern for the potential aggressive behavior from patient's son upon d/c, ED team indicates understanding and agreement. TRANSPORTATION ECONOMICS TEACHER calls [facility] JEOVANY Summersn Brody (Ph. # [phone]) and leaves requesting return call once more to provide update and to provide contact information for TRANSPORTATION ECONOMICS TEACHER on shift tomorrow. TRANSPORTATION ECONOMICS TEACHER requests that [facility] coordinate with family for patient to access long-term care. Plan: Patient to d/c to home with son with referral for HH with [facility] Family to coordinate further with [facility] case finisher for tank terminal gauger care planning and APS to f/u with patient. ALLISON Bowles
--- NOTE | 2022-05-11 16:20 | PC.NURSE ---
Pt resting with eyes closed. Skin p/w/d. In no apparent distress.
--- NOTE | 2022-05-11 16:45 | PC.NURSE ---
Changed pt's brief, applied barrier cream and fresh warm blankets.
--- NOTE | 2022-05-11 17:06 | PC.NURSE ---
Dinner delivered at 1700, pt declined his dietary dinner meal and requested Rice Crispies w/ whole milk. Pt ate two boxes of Rice Crispies.
[2022-05-11 17:14] VITALS: PULSE 53; O2SAT 99
[2022-05-11 17:15] VITALS: BP 153/73; PULSE 48; O2SAT 99
[2022-05-11 17:23] VITALS: BP 153/78; PULSE 51; RESP 17; O2SAT 100
[2022-05-11] MEDS: MELATONIN 3 MG TABLET PO (21:05)
[2022-05-11] MEDS: SERTRALINE 50 MG TABLET PO (21:05)
[2022-05-12] VITALS (12 sets, daily range): BP systolic 137–165; BP diastolic 75–79; PULSE 55–80; RESP 14–18; O2SAT 95–99
--- NOTE | 2022-05-12 00:24 | PC.NURSE ---
Addendum entered by Sherri Lopez R.N. 05/12/22 01:12: meant to write don't look at me like your stupid Original Note: entered room to change pt, when placing diaper on pt stated he wanted the grease on, when asked what grease and he stated that fucking grease attempted to tell pt that he did not have to yell pt stated well don't look at me like I'm stupid she is trying to hand you the grease attempted to hand pt a washcloth and the grease so he could apply it to his groin area and pt stated you can keep the fucking grease I'll report you in the morning
--- NOTE | 2022-05-12 04:56 | PC.NURSE ---
pt awake wanting to get up and get dressed and have breakfast, reoriented pt that it 0400 and not time to get up
--- NOTE | 2022-05-12 05:00 | PC.NURSE ---
pt awake asking when he can get dressed and go home, explained to pt when his son got here, pt stated I think my parents are aleady her informed pt his son would be coming later today
--- NOTE | 2022-05-12 05:58 | PC.NURSE ---
entered room to take vs, pt stated so I'm just going to sit here until my parents come? explained to pt his son was coming pt stated whoever when are they coming informed pt it was not clear when his son would be coming but it would be later today
--- NOTE | 2022-05-12 06:21 | PC.NURSE ---
STOREPERSON note: Patient called. I went in and asked what I could do to help him. He needed a brief changed. He also had taken out his IV. I asked why he did that. Because you just put it on me. Cleaned up room. He asked when his parents were coming. I asked what year do you think it is? 2001. Told him it was 2021. Damn. When are my parents coming? Told him that his son was coming in the morning. I changed his brief and got him blankets. As I was putting them on he said you could put more than one on. I said I have a stack of four for you. Patient rolled his eyes. Made sure patient was safe, call light within reach, oriented to room.
[2022-05-12] MEDS: CLOPIDOGREL 75 MG TABLET PO (08:54)
[2022-05-12] MEDS: LEVOTHYROXINE 150 MCG TABLET PO (08:55)
[2022-05-12] MEDS: ENOXAPARIN 40 MG/0.4 ML SYRINGE SUBCUT (08:55)
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
--- NOTE | 2022-05-12 10:34 | PC.NURSE ---
pt requesting phone again. portable phone provided.
[2022-05-12] MEDS: HYDROCODONE/ACET 5/325 TABLET 2 TAB PO (11:24)
--- NOTE | 2022-05-12 11:57 | CM.DPC ---
DCP Continued: BRYSON was asked by CHARITY Babb to call patients daughter in law Marisol [phone] and daughter duyen Jennings [phone] to discuss discharge planning. Patients son is working with CHARITY Babb on safe DC plan to hotel or respite stay at an assisted living facility however need to speak with family to see if there is any help with financing a respite stay. CM called daughter-in laws and left them both a message asking them to call us back, explaining it was important. BRYSON will follow up with CHARITY Babb. CHARITY Babb is working with [facility] to see if we can obtain a hotel voucher for the patient for a few nights to help out with placement CHARITY will continue to work and follow up with this patient to secure a safe DC plan from the ED. Charity Keen technical customer support specialist
--- NOTE | 2022-05-12 13:01 | PC.NURSE ---
patient picking at skin on arms, bleeding. Cleaned area and placed bandaid on arm. Patient asking for his xanax I will be up all night Reoriented to time of day.
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
[2022-05-12] MEDS: ALPRAZolam 0.25 MG TABLET PO (15:45)
== END 2022-05-12 17:00 | disposition home or self-care (01) ==
PROVIDERS: Emergency Medicine; Emergency Provider Emergency Medicine; PCP Internal Medicine
DX: R07.89 Other chest pain (principal); R62.7 Adult failure to thrive; M54.9 Dorsalgia, unspecified; R06.02 Shortness of breath; I25.2 Old myocardial infarction; Z95.5 Presence of coronary angioplasty implant and graft; Z20.822 Contact with and (suspected) exposure to COVID-19; Z79.899 Other long term (current) drug therapy
CPT/HCPCS: 36415; 71045; 80053; 81003; 81015; 82550; 83690; 83735; 84439; 84443; 84484; 85025; 87086; 87635; 93005; 96372; 97161; 99284; 99285; C9803; J1650

== ENCOUNTER 2022-05-18 19:55 | Emergency (ER) | payer OTHER, SELFPAY ==
[2021-09-20 11:21] VITALS: BMI 19.8
--- NOTE | 2022-05-18 20:01 | ED.PSYCH ---
HPI - Psych <Lanre Whyte, DO - Last Filed: 05/28/22 07:35> General Chief Complaint: Psychiatric Symptoms Stated Complaint: SI Time Seen by Provider: 05/18/22 19:58 History of Present Illness HPI Narrative: 72-year-old male former smoker with history of dementia, failure to thrive, prior stroke,lives at home, essentially unable to ambulate and requires significant assistance presents with reported suicidal ideation and homicidal ideation. He had recently had a prolonged visit to our emergency department after extensive and complex social issues resulted in his being removed from home. Please see prior notes for extensive details, however in some the patient requires significant care at home and his power of track dresser is his son and reports a falling out with his which resulted in a restraining order which required both the power of track dresser and this patient to leave the home. Cdupr-oi-chtmupis (son) was unable to care for the patient and he ended up here in the emergency department for help with placement. There is extensive evaluation in the emergency department with significant work by social work but for various reasons there was an inability to place the patient and he was eventually discharged from the emergency department to the family home. Today he was brought by his [id number] Michaela who states to registration and nursing (see and there no) that she has been doing her best to care for the patient but she is unable, furthermore she feels unsafe having him at home and states ?he masturbates in front of her 14-year-old child and threatened to kill the child as well as himself). On arrival patient denies active suicidal or homicidal ideation but is tearful. He states that he is unable to walk and unable to care for himself and does not know what to do. He denies headache or blurred vision. He has no chest pain or shortness of breath. He denies nausea, vomiting or diarrhea. He thinks he has been taking his medications. Related Data Home Medications Medication Instructions Recorded Confirmed levothyroxine 125 mcg tablet 150 mcg PO DAILY thyroid 09/03/21 05/18/22 sertraline 50 mg tablet 50 mg PO DAILY depression 09/03/21 05/18/22 hydroxyzine HCl 25 mg tablet 25 mg PO QID PRN Itching 05/10/22 05/18/22 lovastatin 40 mg tablet 40 mg PO QPM 05/18/22 05/18/22 Previous Rx's Medication Instructions Recorded clopidogrel 75 mg tablet 75 mg PO DAILY #30 tabs 09/24/21 hydrocodone 10 mg-acetaminophen 1 tab PO Q4HR PRN Pain, Moderate 09/24/21 325 mg tablet (4-6) #20 tabs meclizine 12.5 mg tablet 25 mg PO Q6HR PRN Vertigo #15 tabs 09/24/21 Allergies Allergy/AdvReac Type Severity Reaction Status Date / Time amitriptyline [From Elavil] Allergy Unknown Verified 05/19/22 11:34 Review of Systems <Lanre Whyte DO - Last Filed: 05/28/22 07:35> Review of Systems Narrative: GENERAL: Denies chills, fatigue, malaise, fever, sweats. HEENT: Denies sinus pain, ear pain, sore throat, difficulty swallowing, dizziness. RESPIRATORY: Denies dyspnea, cough, wheezing, hemoptysis, sputum. CARDIOVASCULAR: Denies chest pain, palpitations, orthopnea, edema, GASTROINTESTINAL: Denies nausea, vomiting, abdominal pain, diarrhea, constipation, melena. : Denies dysuria, frequency, incontinence, hematuria, urinary retention. MUSCULOSKELETAL: denies weakness, joint pain, or bony pain SKIN: Denies rash, skin lesions, or other NEUROLOGIC: Denies weakness, headache, numbness, change in speech, confusion, seizures, incoordination. PSYCHIATRIC: See HPI 12 point review of systems is negative except for those stated above Patient History <DO Tejinder Thomas Last Filed: 05/28/22 07:35> Medical History Cerebrovascular accident Chronic GERD Dementia Hyperlipidemia Hypertension Social History household members: children Smoking Status: Former smoker alcohol intake: current Smoking Status: Former smoker tobacco type: cigarettes alcohol intake frequency: holidays/special occasions only Substance Use Type: marijuana Exam <Lanre Whyte DO - Last Filed: 05/28/22 07:35> Narrative Exam Narrative: GENERAL: [72] year old patient appears stated age. Frail and elderly. Thin. Tearful. GCS 15. HEAD: Atraumatic. Normocephalic. EYES: Pupils equal round and reactive. Extraocular motions intact. No scleral icterus. No injection or drainage. ENT: Nose without bleeding, purulent drainage. Throat without erythema, tonsillar hypertrophy or exudate. Airway patent. NECK: Trachea midline. Non tender CARDIOVASCULAR: Regular rate and rhythm without murmurs, gallops, or rubs. RESPIRATORY: Clear to auscultation. Breath sounds equal bilaterally. No wheezes, rales, or rhonchi. GASTROINTESTINAL: Abdomen soft, non-tender, nondistended. EXTREMITIES: No edema or joint tenderness. BACK: Nontender without deformity or crepitance. No flank tenderness. NEURO: CN II-XII grossly in tact SKIN: No rash or erythema of visible areas Initial Vital Signs Initial Vital Signs: Vital Signs Temperature 97.8 F 05/18/22 20:25 Pulse Rate 45 L 05/18/22 20:25 Respiratory Rate 12 05/18/22 20:25 Blood Pressure 206/95 H 05/18/22 20:25 Pulse Oximetry 99 05/18/22 20:25 <Abdon Conroy, DO - Last Filed: 05/21/22 19:17> Initial Vital Signs Initial Vital Signs: Vital Signs Temperature 97.8 F 05/18/22 20:25 Pulse Rate 45 L 05/18/22 20:25 Respiratory Rate 12 05/18/22 20:25 Blood Pressure 206/95 H 05/18/22 20:25 Pulse Oximetry 99 05/18/22 20:25 <Carmina Kulkarni, DO - Last Filed: 06/01/22 02:46> Initial Vital Signs Initial Vital Signs: Vital Signs Temperature 97.8 F 05/18/22 20:25 Pulse Rate 45 L 05/18/22 20:25 Respiratory Rate 12 05/18/22 20:25 Blood Pressure 206/95 H 05/18/22 20:25 Pulse Oximetry 99 05/18/22 20:25 <Mayra Sequeira, DO - Last Filed: 05/26/22 07:10> Initial Vital Signs Initial Vital Signs: Vital Signs Temperature 97.8 F 05/18/22 20:25 Pulse Rate 45 L 05/18/22 20:25 Respiratory Rate 12 05/18/22 20:25 Blood Pressure 206/95 H 05/18/22 20:25 Pulse Oximetry 99 05/18/22 20:25 <Mark Singleton MD - Last Filed: 05/23/22 22:47> Initial Vital Signs Initial Vital Signs: Vital Signs Temperature 97.8 F 05/18/22 20:25 Pulse Rate 45 L 05/18/22 20:25 Respiratory Rate 12 05/18/22 20:25 Blood Pressure 206/95 H 05/18/22 20:25 Pulse Oximetry 99 05/18/22 20:25 <Wendy Whitney MD - Last Filed: 05/23/22 13:02> Initial Vital Signs Initial Vital Signs: Vital Signs Temperature 97.8 F 05/18/22 20:25 Pulse Rate 45 L 05/18/22 20:25 Respiratory Rate 12 05/18/22 20:25 Blood Pressure 206/95 H 05/18/22 20:25 Pulse Oximetry 99 05/18/22 20:25 Course <Lanre Whyte DO - Last Filed: 05/28/22 07:35> Orders Ordered: Discontinued Medications Hydrocodone Bitart/Acetaminophen (Hydrocodone/Acet 10/325 Tablet) 1 tab PO Q4HR PRN PRN Reason: Pain, Moderate (4-6) Stop: 05/21/22 16:22 Last Admin: 05/22/22 11:56 Dose: 1 tab Documented By: Admin: 05/21/22 11:06 Dose: 1 tab Documented By: Admin: 05/20/22 18:18 Dose: 1 tab Documented By: Admin: 05/20/22 13:39 Dose: 1 tab Documented By: Admin: 05/19/22 18:39 Dose: 1 tab Documented By: AT Hydrocodone Bitart/Acetaminophen (Hydrocodone/Acet 10/325 Tablet) 1 tab PO Q4HR PRN PRN Reason: Pain, Moderate (4-6) Stop: 05/25/22 11:52 Alprazolam (Alprazolam 0.5 Mg Tablet) 0.5 mg PO NOW ONE Stop: 05/20/22 22:30 Last Admin: 05/20/22 23:02 Dose: 0.5 mg Documented By: GABRIELLA Alprazolam (Alprazolam 0.5 Mg Tablet) 0.5 mg PO NOW ONE Stop: 05/22/22 00:10 Last Admin: 05/22/22 00:16 Dose: 0.5 mg Documented By: ADK Atorvastatin Calcium (Atorvastatin 20 Mg Tablet) 10 mg PO BEDTIME [facility] Last Admin: 05/22/22 20:31 Dose: 10 mg Documented By: Admin: 05/22/22 11:57 Dose: Not Given Documented By: Admin: 05/20/22 21:44 Dose: 10 mg Documented By: Admin: 05/19/22 21:28 Dose: 10 mg Documented By: GEOVANNY Clopidogrel Bisulfate (Clopidogrel 75 Mg Tablet) 75 mg PO NOW ONE Stop: 05/19/22 08:28 Last Admin: 05/19/22 10:16 Dose: 75 mg Documented By: KALINA Clopidogrel Bisulfate (Clopidogrel 75 Mg Tablet) 75 mg PO DAILY [facility] Last Admin: 05/23/22 09:53 Dose: 75 mg Documented By: Admin: 05/22/22 11:51 Dose: 75 mg Documented By: Admin: 05/21/22 11:07 Dose: 75 mg Documented By: Admin: 05/20/22 09:03 Dose: 75 mg Documented By: TATYANA Hydroxyzine Pamoate (Hydroxyzine Pamoate 25 Mg Capsule) 25 mg PO QID PRN PRN Reason: Itching Last Admin: 05/22/22 11:57 Dose: 25 mg Documented By: Admin: 05/22/22 00:15 Dose: 25 mg Documented By: Admin: 05/21/22 11:07 Dose: 25 mg Documented By: Admin: 05/20/22 18:18 Dose: 25 mg Documented By: Admin: 05/19/22 18:39 Dose: 25 mg Documented By: SEGUNDO Levothyroxine Sodium (Levothyroxine 125 Mcg Tablet) 125 mcg PO DAILY@0600 [facility] Levothyroxine Sodium (Levothyroxine 150 Mcg Tablet) 150 mcg PO DAILY@0600 [facility] Last Admin: 05/23/22 08:18 Dose: 150 mcg Documented By: Admin: 05/22/22 11:51 Dose: 150 mcg Documented By: Admin: 05/21/22 11:07 Dose: 150 mcg Documented By: Admin: 05/20/22 09:03 Dose: 150 mcg Documented By: Admin: 05/19/22 09:42 Dose: 150 mcg Documented By: KALINA Non-Formulary Medication (Lovastatin) 40 mg PO [facility]INNER [facility] Home Medication (Storage) 0 each PO PRN PRN PRN Reason: HOME MEDICATION STORAGE Sertraline HCl (Sertraline 50 Mg Tablet) 50 mg PO BEDTIME [facility] Last Admin: 05/22/22 20:32 Dose: 50 mg Documented By: Admin: 05/22/22 00:15 Dose: 50 mg Documented By: Admin: 05/20/22 21:44 Dose: 50 mg Documented By: Admin: 05/19/22 21:27 Dose: 50 mg Documented By: GEOVANNY Vital Signs Vital signs: Vital Signs - 8 hr 05/23/22 09:27 Pulse Rate 61 Respiratory Rate 14 Blood Pressure 138/70 Pulse Oximetry 97 Oxygen Delivery Method Room Air <Abdon Conroy DO - Last Filed: 05/21/22 19:17> Orders Ordered: Discontinued Medications Hydrocodone Bitart/Acetaminophen (Hydrocodone/Acet 10/325 Tablet) 1 tab PO Q4HR PRN PRN Reason: Pain, Moderate (4-6) Stop: 05/21/22 16:22 Last Admin: 05/22/22 11:56 Dose: 1 tab Documented By: Admin: 05/21/22 11:06 Dose: 1 tab Documented By: Admin: 05/20/22 18:18 Dose: 1 tab Documented By: Admin: 05/20/22 13:39 Dose: 1 tab Documented By: Admin: 05/19/22 18:39 Dose: 1 tab Documented By: AT Hydrocodone Bitart/Acetaminophen (Hydrocodone/Acet 10/325 Tablet) 1 tab PO Q4HR PRN PRN Reason: Pain, Moderate (4-6) Stop: 05/25/22 11:52 Alprazolam (Alprazolam 0.5 Mg Tablet) 0.5 mg PO NOW ONE Stop: 05/20/22 22:30 Last Admin: 05/20/22 23:02 Dose: 0.5 mg Documented By: GABRIELLA Alprazolam (Alprazolam 0.5 Mg Tablet) 0.5 mg PO NOW ONE Stop: 05/22/22 00:10 Last Admin: 05/22/22 00:16 Dose: 0.5 mg Documented By: GABRIELLA Atorvastatin Calcium (Atorvastatin 20 Mg Tablet) 10 mg PO BEDTIME [facility] Last Admin: 05/22/22 20:31 Dose: 10 mg Documented By: Admin: 05/22/22 11:57 Dose: Not Given Documented By: Admin: 05/20/22 21:44 Dose: 10 mg Documented By: Admin: 05/19/22 21:28 Dose: 10 mg Documented By: GEOVANNY Clopidogrel Bisulfate (Clopidogrel 75 Mg Tablet) 75 mg PO NOW ONE Stop: 05/19/22 08:28 Last Admin: 05/19/22 10:16 Dose: 75 mg Documented By: KALINA Clopidogrel Bisulfate (Clopidogrel 75 Mg Tablet) 75 mg PO DAILY [facility] Last Admin: 05/23/22 09:53 Dose: 75 mg Documented By: Admin: 05/22/22 11:51 Dose: 75 mg Documented By: Admin: 05/21/22 11:07 Dose: 75 mg Documented By: Admin: 05/20/22 09:03 Dose: 75 mg Documented By: TATYANA Hydroxyzine Pamoate (Hydroxyzine Pamoate 25 Mg Capsule) 25 mg PO QID PRN PRN Reason: Itching Last Admin: 05/22/22 11:57 Dose: 25 mg Documented By: Admin: 05/22/22 00:15 Dose: 25 mg Documented By: Admin: 05/21/22 11:07 Dose: 25 mg Documented By: Admin: 05/20/22 18:18 Dose: 25 mg Documented By: Admin: 05/19/22 18:39 Dose: 25 mg Documented By: AT Levothyroxine Sodium (Levothyroxine 125 Mcg Tablet) 125 mcg PO DAILY@0600 [facility] Levothyroxine Sodium (Levothyroxine 150 Mcg Tablet) 150 mcg PO DAILY@0600 [facility] Last Admin: 05/23/22 08:18 Dose: 150 mcg Documented By: Admin: 05/22/22 11:51 Dose: 150 mcg Documented By: Admin: 05/21/22 11:07 Dose: 150 mcg Documented By: Admin: 05/20/22 09:03 Dose: 150 mcg Documented By: Admin: 05/19/22 09:42 Dose: 150 mcg Documented By: KALINA Non-Formulary Medication (Lovastatin) 40 mg PO [facility] Home Medication (Storage) 0 each PO PRN PRN PRN Reason: HOME MEDICATION STORAGE Sertraline HCl (Sertraline 50 Mg Tablet) 50 mg PO BEDTIME [facility] Last Admin: 05/22/22 20:32 Dose: 50 mg Documented By: Admin: 05/22/22 00:15 Dose: 50 mg Documented By: Admin: 05/20/22 21:44 Dose: 50 mg Documented By: Admin: 05/19/22 21:27 Dose: 50 mg Documented By: GEOVANNY Vital Signs Vital signs: Vital Signs - 8 hr 05/23/22 09:27 Pulse Rate 61 Respiratory Rate 14 Blood Pressure 138/70 Pulse Oximetry 97 Oxygen Delivery Method Room Air <Carmina Kulkarni DO - Last Filed: 06/01/22 02:46> Orders Ordered: Discontinued Medications Hydrocodone Bitart/Acetaminophen (Hydrocodone/Acet 10/325 Tablet) 1 tab PO Q4HR PRN PRN Reason: Pain, Moderate (4-6) Stop: 05/21/22 16:22 Last Admin: 05/22/22 11:56 Dose: 1 tab Documented By: Admin: 05/21/22 11:06 Dose: 1 tab Documented By: Admin: 05/20/22 18:18 Dose: 1 tab Documented By: Admin: 05/20/22 13:39 Dose: 1 tab Documented By: Admin: 05/19/22 18:39 Dose: 1 tab Documented By: AT Hydrocodone Bitart/Acetaminophen (Hydrocodone/Acet 10/325 Tablet) 1 tab PO Q4HR PRN PRN Reason: Pain, Moderate (4-6) Stop: 05/25/22 11:52 Alprazolam (Alprazolam 0.5 Mg Tablet) 0.5 mg PO NOW ONE Stop: 05/20/22 22:30 Last Admin: 05/20/22 23:02 Dose: 0.5 mg Documented By: GABRIELLA Alprazolam (Alprazolam 0.5 Mg Tablet) 0.5 mg PO NOW ONE Stop: 05/22/22 00:10 Last Admin: 05/22/22 00:16 Dose: 0.5 mg Documented By: GABRIELLA Atorvastatin Calcium (Atorvastatin 20 Mg Tablet) 10 mg PO BEDTIME [facility] Last Admin: 05/22/22 20:31 Dose: 10 mg Documented By: Admin: 05/22/22 11:57 Dose: Not Given Documented By: Admin: 05/20/22 21:44 Dose: 10 mg Documented By: Admin: 05/19/22 21:28 Dose: 10 mg Documented By: GEOVANNY Clopidogrel Bisulfate (Clopidogrel 75 Mg Tablet) 75 mg PO NOW ONE Stop: 05/19/22 08:28 Last Admin: 05/19/22 10:16 Dose: 75 mg Documented By: KALINA Clopidogrel Bisulfate (Clopidogrel 75 Mg Tablet) 75 mg PO DAILY [facility] Last Admin: 05/23/22 09:53 Dose: 75 mg Documented By: Admin: 05/22/22 11:51 Dose: 75 mg Documented By: Admin: 05/21/22 11:07 Dose: 75 mg Documented By: Admin: 05/20/22 09:03 Dose: 75 mg Documented By: TATYANA Hydroxyzine Pamoate (Hydroxyzine Pamoate 25 Mg Capsule) 25 mg PO QID PRN PRN Reason: Itching Last Admin: 05/22/22 11:57 Dose: 25 mg Documented By: Admin: 05/22/22 00:15 Dose: 25 mg Documented By: Admin: 05/21/22 11:07 Dose: 25 mg Documented By: Admin: 05/20/22 18:18 Dose: 25 mg Documented By: Admin: 05/19/22 18:39 Dose: 25 mg Documented By: SEGUNDO Levothyroxine Sodium (Levothyroxine 125 Mcg Tablet) 125 mcg PO DAILY@0600 [facility] Levothyroxine Sodium (Levothyroxine 150 Mcg Tablet) 150 mcg PO DAILY@0600 [facility] Last Admin: 05/23/22 08:18 Dose: 150 mcg Documented By: Admin: 05/22/22 11:51 Dose: 150 mcg Documented By: Admin: 05/21/22 11:07 Dose: 150 mcg Documented By: Admin: 05/20/22 09:03 Dose: 150 mcg Documented By: Admin: 05/19/22 09:42 Dose: 150 mcg Documented By: KALINA Non-Formulary Medication (Lovastatin) 40 mg [facility] Home Medication (Storage) 0 each PO PRN PRN PRN Reason: HOME MEDICATION STORAGE Sertraline HCl (Sertraline 50 Mg Tablet) 50 mg PO BEDTIME [facility] Last Admin: 05/22/22 20:32 Dose: 50 mg Documented By: Admin: 05/22/22 00:15 Dose: 50 mg Documented By: Admin: 05/20/22 21:44 Dose: 50 mg Documented By: Admin: 05/19/22 21:27 Dose: 50 mg Documented By: GEOVANNY Vital Signs Vital signs: Vital Signs - 8 hr 05/23/22 09:27 Pulse Rate 61 Respiratory Rate 14 Blood Pressure 138/70 Pulse Oximetry 97 Oxygen Delivery Method Room Air <Mayra Sequeira, - Last Filed: 05/26/22 07:10> Orders Ordered: Discontinued Medications Hydrocodone Bitart/Acetaminophen (Hydrocodone/Acet 10/325 Tablet) 1 tab PO Q4HR PRN PRN Reason: Pain, Moderate (4-6) Stop: 05/21/22 16:22 Last Admin: 05/22/22 11:56 Dose: 1 tab Documented By: Admin: 05/21/22 11:06 Dose: 1 tab Documented By: Admin: 05/20/22 18:18 Dose: 1 tab Documented By: Admin: 05/20/22 13:39 Dose: 1 tab Documented By: Admin: 05/19/22 18:39 Dose: 1 tab Documented By: AT Hydrocodone Bitart/Acetaminophen (Hydrocodone/Acet 10/325 Tablet) 1 tab PO Q4HR PRN PRN Reason: Pain, Moderate (4-6) Stop: 05/25/22 11:52 Alprazolam (Alprazolam 0.5 Mg Tablet) 0.5 mg PO NOW ONE Stop: 05/20/22 22:30 Last Admin: 05/20/22 23:02 Dose: 0.5 mg Documented By: GABRIELLA Alprazolam (Alprazolam 0.5 Mg Tablet) 0.5 mg PO NOW ONE Stop: 05/22/22 00:10 Last Admin: 05/22/22 00:16 Dose: 0.5 mg Documented By: GABRIELLA Atorvastatin Calcium (Atorvastatin 20 Mg Tablet) 10 mg PO BEDTIME [facility] Last Admin: 05/22/22 20:31 Dose: 10 mg Documented By: Admin: 05/22/22 11:57 Dose: Not Given Documented By: Admin: 05/20/22 21:44 Dose: 10 mg Documented By: Admin: 05/19/22 21:28 Dose: 10 mg Documented By: GEOVANNY Clopidogrel Bisulfate (Clopidogrel 75 Mg Tablet) 75 mg PO NOW ONE Stop: 05/19/22 08:28 Last Admin: 05/19/22 10:16 Dose: 75 mg Documented By: KALINA Clopidogrel Bisulfate (Clopidogrel 75 Mg Tablet) 75 mg PO DAILY [facility] Admin: 05/23/22 09:53 Dose: 75 mg Documented By: Admin: 05/22/22 11:51 Dose: 75 mg Documented By: Admin: 05/21/22 11:07 Dose: 75 mg Documented By: Admin: 05/20/22 09:03 Dose: 75 mg Documented By: TATYANA Hydroxyzine Pamoate (Hydroxyzine Pamoate 25 Mg Capsule) 25 mg PO QID PRN PRN Reason: Itching Last Admin: 05/22/22 11:57 Dose: 25 mg Documented By: Admin: 05/22/22 00:15 Dose: 25 mg Documented By: Admin: 05/21/22 11:07 Dose: 25 mg Documented By: Admin: 05/20/22 18:18 Dose: 25 mg Documented By: Admin: 05/19/22 18:39 Dose: 25 mg Documented By: SEGUNDO Levothyroxine Sodium (Levothyroxine 125 Mcg Tablet) 125 mcg PO DAILY@0600 [facility] Levothyroxine Sodium (Levothyroxine 150 Mcg Tablet) 150 mcg PO DAILY@0600 [facility] Last Admin: 05/23/22 08:18 Dose: 150 mcg Documented By: Admin: 05/22/22 11:51 Dose: 150 mcg Documented By: Admin: 05/21/22 11:07 Dose: 150 mcg Documented By: Admin: 05/20/22 09:03 Dose: 150 mcg Documented By: Admin: 05/19/22 09:42 Dose: 150 mcg Documented By: KALINA Non-Formulary Medication (Lovastatin) 40 mg [facility] Home Medication (Storage) 0 each PO PRN PRN PRN Reason: HOME MEDICATION STORAGE Sertraline HCl (Sertraline 50 Mg Tablet) 50 mg PO BEDTIME [facility] Last Admin: 05/22/22 20:32 Dose: 50 mg Documented By: Admin: 05/22/22 00:15 Dose: 50 mg Documented By: Admin: 05/20/22 21:44 Dose: 50 mg Documented By: Admin: 05/19/22 21:27 Dose: 50 mg Documented By: GEOVANNY Vital Signs Vital signs: Vital Signs - 8 hr 05/23/22 09:27 Pulse Rate 61 Respiratory Rate 14 Blood Pressure 138/70 Pulse Oximetry 97 Oxygen Delivery Method Room Air <Mark Singleton MD - Last Filed: 05/23/22 22:47> Course Course Narrative: May 22, 2022 at 7:00 p.m.. Sign out from dr sequeira, patient has been evaluated by social work. Plan is for patient to be discharged home with son. Either tonight or tomorrow morning. May 23, 2022 at 7:[address] Palencia, at this time patient has already been evaluated social work. Patient is to be taken home by family today. Otherwise medications and laboratories have been automated Orders Ordered: Discontinued Medications Hydrocodone Bitart/Acetaminophen (Hydrocodone/Acet 10/325 Tablet) 1 tab PO Q4HR PRN PRN Reason: Pain, Moderate (4-6) Stop: 05/21/22 16:22 Last Admin: 05/22/22 11:56 Dose: 1 tab Documented By: Admin: 05/21/22 11:06 Dose: 1 tab Documented By: Admin: 05/20/22 18:18 Dose: 1 tab Documented By: Admin: 05/20/22 13:39 Dose: 1 tab Documented By: Admin: 05/19/22 18:39 Dose: 1 tab Documented By: AT Hydrocodone Bitart/Acetaminophen (Hydrocodone/Acet 10/325 Tablet) 1 tab PO Q4HR PRN PRN Reason: Pain, Moderate (4-6) Stop: 05/25/22 11:52 Alprazolam (Alprazolam 0.5 Mg Tablet) 0.5 mg PO NOW ONE Stop: 05/20/22 22:30 Last Admin: 05/20/22 23:02 Dose: 0.5 mg Documented By: GABRIELLA Alprazolam (Alprazolam 0.5 Mg Tablet) 0.5 mg PO NOW ONE Stop: 05/22/22 00:10 Last Admin: 05/22/22 00:16 Dose: 0.5 mg Documented By: GABRIELLA Atorvastatin Calcium (Atorvastatin 20 Mg Tablet) 10 mg PO BEDTIME [facility] Last Admin: 05/22/22 20:31 Dose: 10 mg Documented By: Admin: 05/22/22 11:57 Dose: Not Given Documented By: Admin: 05/20/22 21:44 Dose: 10 mg Documented By: Admin: 05/19/22 21:28 Dose: 10 mg Documented By: GEOVANNY Clopidogrel Bisulfate (Clopidogrel 75 Mg Tablet) 75 mg PO NOW ONE Stop: 05/19/22 08:28 Last Admin: 05/19/22 10:16 Dose: 75 mg Documented By: KALINA Clopidogrel Bisulfate (Clopidogrel 75 Mg Tablet) 75 mg PO DAILY [facility] Last Admin: 05/23/22 09:53 Dose: 75 mg Documented By: Admin: 05/22/22 11:51 Dose: 75 mg Documented By: Admin: 05/21/22 11:07 Dose: 75 mg Documented By: Admin: 05/20/22 09:03 Dose: 75 mg Documented By: TATYANA Hydroxyzine Pamoate (Hydroxyzine Pamoate 25 Mg Capsule) 25 mg PO QID PRN PRN Reason: Itching Last Admin: 05/22/22 11:57 Dose: 25 mg Documented By: Admin: 05/22/22 00:15 Dose: 25 mg Documented By: Admin: 05/21/22 11:07 Dose: 25 mg Documented By: Admin: 05/20/22 18:18 Dose: 25 mg Documented By: Admin: 05/19/22 18:39 Dose: 25 mg Documented By: SEGUNDO Levothyroxine Sodium (Levothyroxine 125 Mcg Tablet) 125 mcg PO DAILY@0600 [facility] Levothyroxine Sodium (Levothyroxine 150 Mcg Tablet) 150 mcg PO DAILY@0600 [facility] Last Admin: 05/23/22 08:18 Dose: 150 mcg Documented By: Admin: 05/22/22 11:51 Dose: 150 mcg Documented By: Admin: 05/21/22 11:07 Dose: 150 mcg Documented By: Admin: 05/20/22 09:03 Dose: 150 mcg Documented By: Admin: 05/19/22 09:42 Dose: 150 mcg Documented By: KALINA Non-Formulary Medication (Lovastatin) 40 mg [facility] Home Medication (Storage) 0 each PO PRN PRN PRN Reason: HOME MEDICATION STORAGE Sertraline HCl (Sertraline 50 Mg Tablet) 50 mg PO BEDTIME [facility] Last Admin: 05/22/22 20:32 Dose: 50 mg Documented By: Admin: 05/22/22 00:15 Dose: 50 mg Documented By: Admin: 05/20/22 21:44 Dose: 50 mg Documented By: Admin: 05/19/22 21:27 Dose: 50 mg Documented By: GEOVANNY Vital Signs Vital signs: Vital Signs - 8 hr 05/23/22 09:27 Pulse Rate 61 Respiratory Rate 14 Blood Pressure 138/70 Pulse Oximetry 97 Oxygen Delivery Method Room Air <Wendy Whitney MD - Last Filed: 05/23/22 13:02> Orders Ordered: Discontinued Medications Hydrocodone Bitart/Acetaminophen (Hydrocodone/Acet 10/325 Tablet) 1 tab PO Q4HR PRN PRN Reason: Pain, Moderate (4-6) Stop: 05/21/22 16:22 Last Admin: 05/22/22 11:56 Dose: 1 tab Documented By: Admin: 05/21/22 11:06 Dose: 1 tab Documented By: Admin: 05/20/22 18:18 Dose: 1 tab Documented By: Admin: 05/20/22 13:39 Dose: 1 tab Documented By: Admin: 05/19/22 18:39 Dose: 1 tab Documented By: AT Hydrocodone Bitart/Acetaminophen (Hydrocodone/Acet 10/325 Tablet) 1 tab PO Q4HR PRN PRN Reason: Pain, Moderate (4-6) Stop: 05/25/22 11:52 Alprazolam (Alprazolam 0.5 Mg Tablet) 0.5 mg PO NOW ONE Stop: 05/20/22 22:30 Last Admin: 05/20/22 23:02 Dose: 0.5 mg Documented By: GABRIELLA Alprazolam (Alprazolam 0.5 Mg Tablet) 0.5 mg PO NOW ONE Stop: 05/22/22 00:10 Last Admin: 05/22/22 00:16 Dose: 0.5 mg Documented By: GABRIELLA Atorvastatin Calcium (Atorvastatin 20 Mg Tablet) 10 mg PO BEDTIME [facility] Last Admin: 05/22/22 20:31 Dose: 10 mg Documented By: Admin: 05/22/22 11:57 Dose: Not Given Documented By: Admin: 05/20/22 21:44 Dose: 10 mg Documented By: Admin: 05/19/22 21:28 Dose: 10 mg Documented By: GEOVANNY Clopidogrel Bisulfate (Clopidogrel 75 Mg Tablet) 75 mg PO NOW ONE Stop: 05/19/22 08:28 Last Admin: 05/19/22 10:16 Dose: 75 mg Documented By: KALINA Clopidogrel Bisulfate (Clopidogrel 75 Mg Tablet) 75 mg PO DAILY [facility] Last Admin: 05/23/22 09:53 Dose: 75 mg Documented By: Admin: 05/22/22 11:51 Dose: 75 mg Documented By: Admin: 05/21/22 11:07 Dose: 75 mg Documented By: Admin: 05/20/22 09:03 Dose: 75 mg Documented By: TATYANA Hydroxyzine Pamoate (Hydroxyzine Pamoate 25 Mg Capsule) 25 mg PO QID PRN PRN Reason: Itching Last Admin: 05/22/22 11:57 Dose: 25 mg Documented By: Admin: 05/22/22 00:15 Dose: 25 mg Documented By: Admin: 05/21/22 11:07 Dose: 25 mg Documented By: Admin: 05/20/22 18:18 Dose: 25 mg Documented By: Admin: 05/19/22 18:39 Dose: 25 mg Documented By: SEGUNDO Levothyroxine Sodium (Levothyroxine 125 Mcg Tablet) 125 mcg PO DAILY@[facility]00 [facility] Levothyroxine Sodium (Levothyroxine 150 Mcg Tablet) 150 mcg PO DAILY@06[facility] Last Admin: 05/23/22 08:18 Dose: 150 mcg Documented By: Admin: 05/22/22 11:51 Dose: 150 mcg Documented By: Admin: 05/21/22 11:07 Dose: 150 mcg Documented By: Admin: 05/20/22 09:03 Dose: 150 mcg Documented By: Admin: 05/19/22 09:42 Dose: 150 mcg Documented By: KALINA Non-Formulary Medication (Lovastatin) 40 mg [facility] Home Medication (Storage) 0 each PO PRN PRN PRN Reason: HOME MEDICATION STORAGE Sertraline HCl (Sertraline 50 Mg Tablet) 50 mg PO BEDTIME [facility] Last Admin: 05/22/22 20:32 Dose: 50 mg Documented By: Admin: 05/22/22 00:15 Dose: 50 mg Documented By: Admin: 05/20/22 21:44 Dose: 50 mg Documented By: Admin: 05/19/22 21:27 Dose: 50 mg Documented By: GEOVANNY Reevaluation(s) Reevaluation #1: 05/23/22 840am patient is excepted at change of shift 72-year-old gentlemant with significant psychosocial issues inability to care for self, progressive dementia, global weakness, social issues with son and daughter with whom he lives. Has been to the emergency department a couple of times and is not meeting acute criteria for inpatient. Unfortunately 1 not able to help with immediate transition to any type of dementia facility. Please see social Work notes. There have been reports to APS. According to social work notes as of yesterday evening, patient's son is supposed to come to the emergency room to chart picker his father. It is not clear that the protection order that the daughter has placed against the son patient has been rescinded for the son and the patient to safely return home. Patient is medically stable in the emergency department, routine orders are initiated routine meds are given. PE: 175/70 HR 58 99%RA Patient slept for the majority of the evening Currently still sleeping and looking comfortable Chest is clear Cardiac exam reveals regular rate and rhythm No new acute issues identified today Plan: Social work involvement, hopefully discharge home with the son sometime today. Will continue with e.d. boarding, medications etc.. Vital Signs Vital signs: Vital Signs - 8 hr 05/23/22 09:27 Pulse Rate 61 Respiratory Rate 14 Blood Pressure 138/70 Pulse Oximetry 97 Oxygen Delivery Method Room Air MDM - Psych <Lanre Whyte, - Last Filed: 05/28/22 07:35> Lab Data Result diagrams: 05/21/22 10:10 05/21/22 10:10 Labs: Lab Results 05/18/22 05/18/22 05/18/22 Range/Units 20:30 20:30 20:30 WBC 5.5 (4.5-11.0) X10^3/uL RBC 3.63 L (4.5-5.9) X10^6/uL Hgb 11.2 L (13.5-17.5) g/dL Hct 34.1 L (41-53) % MCV 93.7 (80-100) fL MCH 30.7 (26-34) PG MCHC 32.8 (30-36) % RDW 14.7 (11.6-14.8) % Plt Count 230 (150-400) X10^3/uL Neut % (Auto) 44.9 L (50-75) % Lymph % (Auto) 34.9 (25-40) % [place] % (Auto) 10.1 (3-14) % Eos % (Auto) 8.9 H (2-4) % Baso % (Auto) 1.2 (0-2) % Neut # (Auto) 2500 (4641-6876) /uL Lymph # (Auto) 1900 (1564-4003) /uL [place] # (Auto) 600 (0-900) /uL Eos # (Auto) 500 H (0-450) /uL Baso # (Auto) 100 (0-100) /uL Sodium 139 (137-145) mmol/L Potassium 4.3 (3.4-5.1) mmol/L Chloride 107 (98-107) mmol/L Carbon Dioxide 24 (22-32) mmol/L BUN 25 H (9-20) mg/dL Creatinine 1.11 (0.66-1.25) mg/dL Estimated GFR > 60 (>60) mL/min BUN/Creatinine Ratio 22.5 H (6-22) Glucose 79 L (80-110) mg/dL Calcium 9.5 (8.4-10.2) mg/dL Total Bilirubin 0.7 (0.2-1.3) mg/dL AST 45 (17-59) IU/L ALT 28 (<50) IU/L Alkaline Phosphatase 357 H (38-126) U/L Total Protein 7.8 (6.3-8.2) g/dL Albumin 3.8 (3.5-5.0) g/dL Globulin 4.0 (1.7-4.1) g/dL Albumin/Globulin Ratio 1.0 (1.0-2.8) TSH 4.78 H D (0.47-4.68) uIU/mL Free T4 0.78 (0.78-2.19) ng/dL Urine Color Urine Appearance Urine pH (4.5-8.0) Ur Specific [place] (1.000-1.035) Urine Protein (Negative) Urine Glucose (UA) (Negative) g/dL Urine Ketones (NEGATIVE) Urine Occult Blood (Negative) Urine Nitrate (Negative) Urine Bilirubin (NEGATIVE) Urine Urobilinogen (0.2) E.U./dL Ur Leukocyte Esterase (NEGATIVE) Urine RBC (0-5/HPF) Urine WBC (0-5/HPF) Ur Squamous Epith Cells (0-5/HPF) Urine Bacteria (None) Ur Culture Indicated? U Opiates 300ng/mL cut (Negative) Ur Oxycodone Screen (Negative) Urine Methadone Screen (Negative) Ur Barbiturates Screen (Negative) U Tricyclic Antidepress (Negative) Ur Phencyclidine Scrn (Negative) Ur Amphetamines Screen (Negative) U Methamphetamines Scrn (Negative) Ur MDMA Scrn (Ecstasy) (Negative) U Benzodiazepines Scrn (Negative) Urine Cocaine Screen (Negative) U Marijuana (THC) Screen (Negative) Ethyl Alcohol < 10 ( - 10) mg/dL SARS-CoV-2 (PCR) (Negative) 05/19/22 05/19/22 05/19/22 Range/Units 10:16 13:09 13:09 WBC (4.5-11.0) X10^3/uL RBC (4.5-5.9) X10^6/uL Hgb (13.5-17.5) g/dL Hct (41-53) % MCV (80-100) fL MCH (26-34) PG MCHC (30-36) % RDW (11.6-14.8) % Plt Count (150-400) X10^3/uL Neut % (Auto) (50-75) % Lymph % (Auto) (25-40) % [place] % (Auto) (3-14) % Eos % (Auto) (2-4) % Baso % (Auto) (0-2) % Neut # (Auto) (8582-8467) /uL Lymph # (Auto) (0508-5077) /uL [place] # (Auto) (0-900) /uL Eos # (Auto) (0-450) /uL Baso # (Auto) (0-100) /uL Sodium (137-145) mmol/L Potassium (3.4-5.1) mmol/L Chloride (98-107) mmol/L Carbon Dioxide (22-32) mmol/L BUN (9-20) mg/dL Creatinine (0.66-1.25) mg/dL Estimated GFR (>60) mL/min BUN/Creatinine Ratio (6-22) Glucose (80-110) mg/dL Calcium (8.4-10.2) mg/dL Total Bilirubin (0.2-1.3) mg/dL AST (17-59) IU/L ALT (<50) IU/L Alkaline Phosphatase (38-126) U/L Total Protein (6.3-8.2) g/dL Albumin (3.5-5.0) g/dL Globulin (1.7-4.1) g/dL Albumin/Globulin Ratio (1.0-2.8) TSH (0.47-4.68) uIU/mL Free T4 (0.78-2.19) ng/dL Urine Color Yellow Urine Appearance Clear Urine pH 5.0 (4.5-8.0) Ur Specific [place] 1.025 (1.000-1.035) Urine Protein Trace H (Negative) Urine Glucose (UA) Trace H (Negative) g/dL Urine Ketones Negative (NEGATIVE) Urine Occult Blood Trace-lysed (Negative) Urine Nitrate Negative (Negative) Urine Bilirubin Negative (NEGATIVE) Urine Urobilinogen 0.2 (0.2) E.U./dL Ur Leukocyte Esterase Trace H (NEGATIVE) Urine RBC 5-10/hpf H (0-5/HPF) Urine WBC 5-10/hpf H (0-5/HPF) Ur Squamous Epith Cells 1-5 /hpf (0-5/HPF) Urine Bacteria None seen (None) Ur Culture Indicated? Specimen cultured U Opiates 300ng/mL cut Positive H (Negative) Ur Oxycodone Screen Negative (Negative) Urine Methadone Screen Negative (Negative) Ur Barbiturates Screen Negative (Negative) U Tricyclic Antidepress Negative (Negative) Ur Phencyclidine Scrn Negative (Negative) Ur Amphetamines Screen Negative (Negative) U Methamphetamines Scrn Negative (Negative) Ur MDMA Scrn (Ecstasy) Negative (Negative) U Benzodiazepines Scrn Positive H (Negative) Urine Cocaine Screen Negative (Negative) U Marijuana (THC) Screen Positive H (Negative) Ethyl Alcohol ( - 10) mg/dL SARS-CoV-2 (PCR) Positive H (Negative) 05/21/22 05/21/22 05/21/22 Range/Units 09:45 10:10 10:10 WBC 4.4 L (4.5-11.0) X10^3/uL RBC 3.89 L (4.5-5.9) X10^6/uL Hgb 11.9 L (13.5-17.5) g/dL Hct 35.1 L (41-53) % MCV 90.3 D (80-100) fL MCH 30.7 (26-34) PG MCHC 34.0 (30-36) % RDW 14.4 (11.6-14.8) % Plt Count 288 (150-400) X10^3/uL Neut % (Auto) 51.6 (50-75) % Lymph % (Auto) 29.1 (25-40) % [place] % (Auto) 8.1 (3-14) % Eos % (Auto) 9.3 H (2-4) % Baso % (Auto) 1.9 (0-2) % Neut # (Auto) 2300 (9464-4062) /uL Lymph # (Auto) 1300 (3143-0219) /uL [place] # (Auto) 400 (0-900) /uL Eos # (Auto) 400 (0-450) /uL Baso # (Auto) 100 (0-100) /uL Sodium 140 (137-145) mmol/L Potassium 3.8 (3.4-5.1) mmol/L Chloride 103 (98-107) mmol/L Carbon Dioxide 29 (22-32) mmol/L BUN 18 (9-20) mg/dL Creatinine 1.00 (0.66-1.25) mg/dL Estimated GFR > 60 (>60) mL/min BUN/Creatinine Ratio 18.0 (6-22) Glucose 94 (80-110) mg/dL Calcium 9.6 (8.4-10.2) mg/dL Total Bilirubin (0.2-1.3) mg/dL AST (17-59) IU/L ALT (<50) IU/L Alkaline Phosphatase (38-126) U/L Total Protein (6.3-8.2) g/dL Albumin (3.5-5.0) g/dL Globulin (1.7-4.1) g/dL Albumin/Globulin Ratio (1.0-2.8) TSH (0.47-4.68) uIU/mL Free T4 (0.78-2.19) ng/dL Urine Color Urine Appearance Urine pH (4.5-8.0) Ur Specific [place] (1.000-1.035) Urine Protein (Negative) Urine Glucose (UA) (Negative) g/dL Urine Ketones (NEGATIVE) Urine Occult Blood (Negative) Urine Nitrate (Negative) Urine Bilirubin (NEGATIVE) Urine Urobilinogen (0.2) E.U./dL Ur Leukocyte Esterase (NEGATIVE) Urine RBC (0-5/HPF) Urine WBC (0-5/HPF) Ur Squamous Epith Cells (0-5/HPF) Urine Bacteria (None) Ur Culture Indicated? U Opiates 300ng/mL cut (Negative) Ur Oxycodone Screen (Negative) Urine Methadone Screen (Negative) Ur Barbiturates Screen (Negative) U Tricyclic Antidepress (Negative) Ur Phencyclidine Scrn (Negative) Ur Amphetamines Screen (Negative) U Methamphetamines Scrn (Negative) Ur MDMA Scrn (Ecstasy) (Negative) U Benzodiazepines Scrn (Negative) Urine Cocaine Screen (Negative) U Marijuana (THC) Screen (Negative) Ethyl Alcohol ( - 10) mg/dL SARS-CoV-2 (PCR) Positive H (Negative) <Abdon Conroy, DO - Last Filed: 05/21/22 19:17> Lab Data Labs: Lab Results 05/18/22 05/18/22 05/18/22 Range/Units 20:30 20:30 20:30 WBC 5.5 (4.5-11.0) X10^3/uL RBC 3.63 L (4.5-5.9) X10^6/uL Hgb 11.2 L (13.5-17.5) g/dL Hct 34.1 L (41-53) % MCV 93.7 (80-100) fL MCH 30.7 (26-34) PG MCHC 32.8 (30-36) % RDW 14.7 (11.6-14.8) % Plt Count 230 (150-400) X10^3/uL Neut % (Auto) 44.9 L (50-75) % Lymph % (Auto) 34.9 (25-40) % [place] % (Auto) 10.1 (3-14) % Eos % (Auto) 8.9 H (2-4) % Baso % (Auto) 1.2 (0-2) % Neut # (Auto) 2500 (9329-6544) /uL Lymph # (Auto) 1900 (6886-3592) /uL [place] # (Auto) 600 (0-900) /uL Eos # (Auto) 500 H (0-450) /uL Baso # (Auto) 100 (0-100) /uL Sodium 139 (137-145) mmol/L Potassium 4.3 (3.4-5.1) mmol/L Chloride 107 (98-107) mmol/L Carbon Dioxide 24 (22-32) mmol/L BUN 25 H (9-20) mg/dL Creatinine 1.11 (0.66-1.25) mg/dL Estimated GFR > 60 (>60) mL/min BUN/Creatinine Ratio 22.5 H (6-22) Glucose 79 L (80-110) mg/dL Calcium 9.5 (8.4-10.2) mg/dL Total Bilirubin 0.7 (0.2-1.3) mg/dL AST 45 (17-59) IU/L ALT 28 (<50) IU/L Alkaline Phosphatase 357 H (38-126) U/L Total Protein 7.8 (6.3-8.2) g/dL Albumin 3.8 (3.5-5.0) g/dL Globulin 4.0 (1.7-4.1) g/dL Albumin/Globulin Ratio 1.0 (1.0-2.8) TSH 4.78 H D (0.47-4.68) uIU/mL Free T4 0.78 (0.78-2.19) ng/dL Urine Color Urine Appearance Urine pH (4.5-8.0) Ur Specific [place] (1.000-1.035) Urine Protein (Negative) Urine Glucose (UA) (Negative) g/dL Urine Ketones (NEGATIVE) Urine Occult Blood (Negative) Urine Nitrate (Negative) Urine Bilirubin (NEGATIVE) Urine Urobilinogen (0.2) E.U./dL Ur Leukocyte Esterase (NEGATIVE) Urine RBC (0-5/HPF) Urine WBC (0-5/HPF) Ur Squamous Epith Cells (0-5/HPF) Urine Bacteria (None) Ur Culture Indicated? U Opiates 300ng/mL cut (Negative) Ur Oxycodone Screen (Negative) Urine Methadone Screen (Negative) Ur Barbiturates Screen (Negative) U Tricyclic Antidepress (Negative) Ur Phencyclidine Scrn (Negative) Ur Amphetamines Screen (Negative) U Methamphetamines Scrn (Negative) Ur MDMA Scrn (Ecstasy) (Negative) U Benzodiazepines Scrn (Negative) Urine Cocaine Screen (Negative) U Marijuana (THC) Screen (Negative) Ethyl Alcohol < 10 ( - 10) mg/dL SARS-CoV-2 (PCR) (Negative) 05/19/22 05/19/22 05/19/22 Range/Units 10:16 13:09 13:09 WBC (4.5-11.0) X10^3/uL RBC (4.5-5.9) X10^6/uL Hgb (13.5-17.5) g/dL Hct (41-53) % MCV (80-100) fL MCH (26-34) PG MCHC (30-36) % RDW (11.6-14.8) % Plt Count (150-400) X10^3/uL Neut % (Auto) (50-75) % Lymph % (Auto) (25-40) % [place] % (Auto) (3-14) % Eos % (Auto) (2-4) % Baso % (Auto) (0-2) % Neut # (Auto) (2355-3511) /uL Lymph # (Auto) (0830-1193) /uL [place] # (Auto) (0-900) /uL Eos # (Auto) (0-450) /uL Baso # (Auto) (0-100) /uL Sodium (137-145) mmol/L Potassium (3.4-5.1) mmol/L Chloride (98-107) mmol/L Carbon Dioxide (22-32) mmol/L BUN (9-20) mg/dL Creatinine (0.66-1.25) mg/dL Estimated GFR (>60) mL/min BUN/Creatinine Ratio (6-22) Glucose (80-110) mg/dL Calcium (8.4-10.2) mg/dL Total Bilirubin (0.2-1.3) mg/dL AST (17-59) IU/L ALT (<50) IU/L Alkaline Phosphatase (38-126) U/L Total Protein (6.3-8.2) g/dL Albumin (3.5-5.0) g/dL Globulin (1.7-4.1) g/dL Albumin/Globulin Ratio (1.0-2.8) TSH (0.47-4.68) uIU/mL Free T4 (0.78-2.19) ng/dL Urine Color Yellow Urine Appearance Clear Urine pH 5.0 (4.5-8.0) Ur Specific [place] 1.025 (1.000-1.035) Urine Protein Trace H (Negative) Urine Glucose (UA) Trace H (Negative) g/dL Urine Ketones Negative (NEGATIVE) Urine Occult Blood Trace-lysed (Negative) Urine Nitrate Negative (Negative) Urine Bilirubin Negative (NEGATIVE) Urine Urobilinogen 0.2 (0.2) E.U./dL Ur Leukocyte Esterase Trace H (NEGATIVE) Urine RBC 5-10/hpf H (0-5/HPF) Urine WBC 5-10/hpf H (0-5/HPF) Ur Squamous Epith Cells 1-5 /hpf (0-5/HPF) Urine Bacteria None seen (None) Ur Culture Indicated? Specimen cultured U Opiates 300ng/mL cut Positive H (Negative) Ur Oxycodone Screen Negative (Negative) Urine Methadone Screen Negative (Negative) Ur Barbiturates Screen Negative (Negative) U Tricyclic Antidepress Negative (Negative) Ur Phencyclidine Scrn Negative (Negative) Ur Amphetamines Screen Negative (Negative) U Methamphetamines Scrn Negative (Negative) Ur MDMA Scrn (Ecstasy) Negative (Negative) U Benzodiazepines Scrn Positive H (Negative) Urine Cocaine Screen Negative (Negative) U Marijuana (THC) Screen Positive H (Negative) Ethyl Alcohol ( - 10) mg/dL SARS-CoV-2 (PCR) Positive H (Negative) 05/21/22 05/21/22 05/21/22 Range/Units 09:45 10:10 10:10 WBC 4.4 L (4.5-11.0) X10^3/uL RBC 3.89 L (4.5-5.9) X10^6/uL Hgb 11.9 L (13.5-17.5) g/dL Hct 35.1 L (41-53) % MCV 90.3 D (80-100) fL MCH 30.7 (26-34) PG MCHC 34.0 (30-36) % RDW 14.4 (11.6-14.8) % Plt Count 288 (150-400) X10^3/uL Neut % (Auto) 51.6 (50-75) % Lymph % (Auto) 29.1 (25-40) % [place] % (Auto) 8.1 (3-14) % Eos % (Auto) 9.3 H (2-4) % Baso % (Auto) 1.9 (0-2) % Neut # (Auto) 2300 (4035-6608) /uL Lymph # (Auto) 1300 (5395-4551) /uL [place] # (Auto) 400 (0-900) /uL Eos # (Auto) 400 (0-450) /uL Baso # (Auto) 100 (0-100) /uL Sodium 140 (137-145) mmol/L Potassium 3.8 (3.4-5.1) mmol/L Chloride 103 (98-107) mmol/L Carbon Dioxide 29 (22-32) mmol/L BUN 18 (9-20) mg/dL Creatinine 1.00 (0.66-1.25) mg/dL Estimated GFR > 60 (>60) mL/min BUN/Creatinine Ratio 18.0 (6-22) Glucose 94 (80-110) mg/dL Calcium 9.6 (8.4-10.2) mg/dL Total Bilirubin (0.2-1.3) mg/dL AST (17-59) IU/L ALT (<50) IU/L Alkaline Phosphatase (38-126) U/L Total Protein (6.3-8.2) g/dL Albumin (3.5-5.0) g/dL Globulin (1.7-4.1) g/dL Albumin/Globulin Ratio (1.0-2.8) TSH (0.47-4.68) uIU/mL Free T4 (0.78-2.19) ng/dL Urine Color Urine Appearance Urine pH (4.5-8.0) Ur Specific [place] (1.000-1.035) Urine Protein (Negative) Urine Glucose (UA) (Negative) g/dL Urine Ketones (NEGATIVE) Urine Occult Blood (Negative) Urine Nitrate (Negative) Urine Bilirubin (NEGATIVE) Urine Urobilinogen (0.2) E.U./dL Ur Leukocyte Esterase (NEGATIVE) Urine RBC (0-5/HPF) Urine WBC (0-5/HPF) Ur Squamous Epith Cells (0-5/HPF) Urine Bacteria (None) Ur Culture Indicated? U Opiates 300ng/mL cut (Negative) Ur Oxycodone Screen (Negative) Urine Methadone Screen (Negative) Ur Barbiturates Screen (Negative) U Tricyclic Antidepress (Negative) Ur Phencyclidine Scrn (Negative) Ur Amphetamines Screen (Negative) U Methamphetamines Scrn (Negative) Ur MDMA Scrn (Ecstasy) (Negative) U Benzodiazepines Scrn (Negative) Urine Cocaine Screen (Negative) U Marijuana (THC) Screen (Negative) Ethyl Alcohol ( - 10) mg/dL SARS-CoV-2 (PCR) Positive H (Negative) MDM Narrative Medical decision making narrative: Dr conroy 05/19/22: Received turned over. Patient is medically cleared. I did talk with the patient and tell him that we are waiting for social work to evaluate him. Patient has been evaluated by social work. Home medications ordered. SCDs ordered. Diet ordered. Care turned over to Dr. Kulkarni to continue to follow until disposition. Cayla 05/19/22-patient signed out to me by Dr. Conroy. No issue with patient overnight awaiting placement. Social work involved. May be a difficult placement consider his admission. Dr conroy: 05/20/22 1536: Re assumed care this morning of patient. He is at baseline with my evaluation yesterday. He has been receiving his home medications. Has been tolerating oral intake. Patient again has been seen by social work. It is my opinion that the patient is unsafe to be discharged home unless his family is willing to take care of him. He can get out of bed and use a walker however he does need assistance. I feel that he does need 24/7 assistance with his activities of daily living. I think that this can be provided by his family if they are willing to do so otherwise patient is unsafe to be discharged home. Care turned over to Dr. Kulkarni to continue to observe until disposition. Dr Conroy: 05/21/22 resume care of the patient this morning. Continues to be stable. Repeat labs ordered this morning and are unremarkable. Patient is tolerating oral intake. Care turned over to Dr. Kulkarni to continue to observe until disposition. <Carmina Kulkarni, - Last Filed: 06/01/22 02:46> Lab Data Labs: Lab Results 05/18/22 05/18/22 05/18/22 Range/Units 20:30 20:30 20:30 WBC 5.5 (4.5-11.0) X10^3/uL RBC 3.63 L (4.5-5.9) X10^6/uL Hgb 11.2 L (13.5-17.5) g/dL Hct 34.1 L (41-53) % MCV 93.7 (80-100) fL MCH 30.7 (26-34) PG MCHC 32.8 (30-36) % RDW 14.7 (11.6-14.8) % Plt Count 230 (150-400) X10^3/uL Neut % (Auto) 44.9 L (50-75) % Lymph % (Auto) 34.9 (25-40) % [place] % (Auto) 10.1 (3-14) % Eos % (Auto) 8.9 H (2-4) % Baso % (Auto) 1.2 (0-2) % Neut # (Auto) 2500 (3368-0168) /uL Lymph # (Auto) 1900 (3140-4275) /uL [place] # (Auto) 600 (0-900) /uL Eos # (Auto) 500 H (0-450) /uL Baso # (Auto) 100 (0-100) /uL Sodium 139 (137-145) mmol/L Potassium 4.3 (3.4-5.1) mmol/L Chloride 107 (98-107) mmol/L Carbon Dioxide 24 (22-32) mmol/L BUN 25 H (9-20) mg/dL Creatinine 1.11 (0.66-1.25) mg/dL Estimated GFR > 60 (>60) mL/min BUN/Creatinine Ratio 22.5 H (6-22) Glucose 79 L (80-110) mg/dL Calcium 9.5 (8.4-10.2) mg/dL Total Bilirubin 0.7 (0.2-1.3) mg/dL AST 45 (17-59) IU/L ALT 28 (<50) IU/L Alkaline Phosphatase 357 H (38-126) U/L Total Protein 7.8 (6.3-8.2) g/dL Albumin 3.8 (3.5-5.0) g/dL Globulin 4.0 (1.7-4.1) g/dL Albumin/Globulin Ratio 1.0 (1.0-2.8) TSH 4.78 H D (0.47-4.68) uIU/mL Free T4 0.78 (0.78-2.19) ng/dL Urine Color Urine Appearance Urine pH (4.5-8.0) Ur Specific [place] (1.000-1.035) Urine Protein (Negative) Urine Glucose (UA) (Negative) g/dL Urine Ketones (NEGATIVE) Urine Occult Blood (Negative) Urine Nitrate (Negative) Urine Bilirubin (NEGATIVE) Urine Urobilinogen (0.2) E.U./dL Ur Leukocyte Esterase (NEGATIVE) Urine RBC (0-5/HPF) Urine WBC (0-5/HPF) Ur Squamous Epith Cells (0-5/HPF) Urine Bacteria (None) Ur Culture Indicated? U Opiates 300ng/mL cut (Negative) Ur Oxycodone Screen (Negative) Urine Methadone Screen (Negative) Ur Barbiturates Screen (Negative) U Tricyclic Antidepress (Negative) Ur Phencyclidine Scrn (Negative) Ur Amphetamines Screen (Negative) U Methamphetamines Scrn (Negative) Ur MDMA Scrn (Ecstasy) (Negative) U Benzodiazepines Scrn (Negative) Urine Cocaine Screen (Negative) U Marijuana (THC) Screen (Negative) Ethyl Alcohol < 10 ( - 10) mg/dL SARS-CoV-2 (PCR) (Negative) 05/19/22 05/19/22 05/19/22 Range/Units 10:16 13:09 13:09 WBC (4.5-11.0) X10^3/uL RBC (4.5-5.9) X10^6/uL Hgb (13.5-17.5) g/dL Hct (41-53) % MCV (80-100) fL MCH (26-34) PG MCHC (30-36) % RDW (11.6-14.8) % Plt Count (150-400) X10^3/uL Neut % (Auto) (50-75) % Lymph % (Auto) (25-40) % [place] % (Auto) (3-14) % Eos % (Auto) (2-4) % Baso % (Auto) (0-2) % Neut # (Auto) (5503-9899) /uL Lymph # (Auto) (2734-0007) /uL [place] # (Auto) (0-900) /uL Eos # (Auto) (0-450) /uL Baso # (Auto) (0-100) /uL Sodium (137-145) mmol/L Potassium (3.4-5.1) mmol/L Chloride (98-107) mmol/L Carbon Dioxide (22-32) mmol/L BUN (9-20) mg/dL Creatinine (0.66-1.25) mg/dL Estimated GFR (>60) mL/min BUN/Creatinine Ratio (6-22) Glucose (80-110) mg/dL Calcium (8.4-10.2) mg/dL Total Bilirubin (0.2-1.3) mg/dL AST (17-59) IU/L ALT (<50) IU/L Alkaline Phosphatase (38-126) U/L Total Protein (6.3-8.2) g/dL Albumin (3.5-5.0) g/dL Globulin (1.7-4.1) g/dL Albumin/Globulin Ratio (1.0-2.8) TSH (0.47-4.68) uIU/mL Free T4 (0.78-2.19) ng/dL Urine Color Yellow Urine Appearance Clear Urine pH 5.0 (4.5-8.0) Ur Specific [place] 1.025 (1.000-1.035) Urine Protein Trace H (Negative) Urine Glucose (UA) Trace H (Negative) g/dL Urine Ketones Negative (NEGATIVE) Urine Occult Blood Trace-lysed (Negative) Urine Nitrate Negative (Negative) Urine Bilirubin Negative (NEGATIVE) Urine Urobilinogen 0.2 (0.2) E.U./dL Ur Leukocyte Esterase Trace H (NEGATIVE) Urine RBC 5-10/hpf H (0-5/HPF) Urine WBC 5-10/hpf H (0-5/HPF) Ur Squamous Epith Cells 1-5 /hpf (0-5/HPF) Urine Bacteria None seen (None) Ur Culture Indicated? Specimen cultured U Opiates 300ng/mL cut Positive H (Negative) Ur Oxycodone Screen Negative (Negative) Urine Methadone Screen Negative (Negative) Ur Barbiturates Screen Negative (Negative) U Tricyclic Antidepress Negative (Negative) Ur Phencyclidine Scrn Negative (Negative) Ur Amphetamines Screen Negative (Negative) U Methamphetamines Scrn Negative (Negative) Ur MDMA Scrn (Ecstasy) Negative (Negative) U Benzodiazepines Scrn Positive H (Negative) Urine Cocaine Screen Negative (Negative) U Marijuana (THC) Screen Positive H (Negative) Ethyl Alcohol ( - 10) mg/dL SARS-CoV-2 (PCR) Positive H (Negative) 05/21/22 05/21/22 05/21/22 Range/Units 09:45 10:10 10:10 WBC 4.4 L (4.5-11.0) X10^3/uL RBC 3.89 L (4.5-5.9) X10^6/uL Hgb 11.9 L (13.5-17.5) g/dL Hct 35.1 L (41-53) % MCV 90.3 D (80-100) fL MCH 30.7 (26-34) PG MCHC 34.0 (30-36) % RDW 14.4 (11.6-14.8) % Plt Count 288 (150-400) X10^3/uL Neut % (Auto) 51.6 (50-75) % Lymph % (Auto) 29.1 (25-40) % [place] % (Auto) 8.1 (3-14) % Eos % (Auto) 9.3 H (2-4) % Baso % (Auto) 1.9 (0-2) % Neut # (Auto) 2300 (2316-2618) /uL Lymph # (Auto) 1300 (8808-3796) /uL [place] # (Auto) 400 (0-900) /uL Eos # (Auto) 400 (0-450) /uL Baso # (Auto) 100 (0-100) /uL Sodium 140 (137-145) mmol/L Potassium 3.8 (3.4-5.1) mmol/L Chloride 103 (98-107) mmol/L Carbon Dioxide 29 (22-32) mmol/L BUN 18 (9-20) mg/dL Creatinine 1.00 (0.66-1.25) mg/dL Estimated GFR > 60 (>60) mL/min BUN/Creatinine Ratio 18.0 (6-22) Glucose 94 (80-110) mg/dL Calcium 9.6 (8.4-10.2) mg/dL Total Bilirubin (0.2-1.3) mg/dL AST (17-59) IU/L ALT (<50) IU/L Alkaline Phosphatase (38-126) U/L Total Protein (6.3-8.2) g/dL Albumin (3.5-5.0) g/dL Globulin (1.7-4.1) g/dL Albumin/Globulin Ratio (1.0-2.8) TSH (0.47-4.68) uIU/mL Free T4 (0.78-2.19) ng/dL Urine Color Urine Appearance Urine pH (4.5-8.0) Ur Specific [place] (1.000-1.035) Urine Protein (Negative) Urine Glucose (UA) (Negative) g/dL Urine Ketones (NEGATIVE) Urine Occult Blood (Negative) Urine Nitrate (Negative) Urine Bilirubin (NEGATIVE) Urine Urobilinogen (0.2) E.U./dL Ur Leukocyte Esterase (NEGATIVE) Urine RBC (0-5/HPF) Urine WBC (0-5/HPF) Ur Squamous Epith Cells (0-5/HPF) Urine Bacteria (None) Ur Culture Indicated? U Opiates 300ng/mL cut (Negative) Ur Oxycodone Screen (Negative) Urine Methadone Screen (Negative) Ur Barbiturates Screen (Negative) U Tricyclic Antidepress (Negative) Ur Phencyclidine Scrn (Negative) Ur Amphetamines Screen (Negative) U Methamphetamines Scrn (Negative) Ur MDMA Scrn (Ecstasy) (Negative) U Benzodiazepines Scrn (Negative) Urine Cocaine Screen (Negative) U Marijuana (THC) Screen (Negative) Ethyl Alcohol ( - 10) mg/dL SARS-CoV-2 (PCR) Positive H (Negative) MDM Narrative Medical decision making narrative: Dr conroy 05/19/22: Received turned over. Patient is medically cleared. I did talk with the patient and tell him that we are waiting for social work to evaluate him. Patient has been evaluated by social work. Home medications ordered. SCDs ordered. Diet ordered. Care turned over to Dr. Kulkarni to continue to follow until disposition. Cayla 05/19/22-patient signed out to me by Dr. Conroy. No issue with patient overnight awaiting placement. Social work involved. May be a difficult placement consider his admission. <Mayra Sequeira, DO - Last Filed: 05/26/22 07:10> Lab Data Labs: Lab Results 05/18/22 05/18/22 05/18/22 Range/Units 20:30 20:30 20:30 WBC 5.5 (4.5-11.0) X10^3/uL RBC 3.63 L (4.5-5.9) X10^6/uL Hgb 11.2 L (13.5-17.5) g/dL Hct 34.1 L (41-53) % MCV 93.7 (80-100) fL MCH 30.7 (26-34) PG MCHC 32.8 (30-36) % RDW 14.7 (11.6-14.8) % Plt Count 230 (150-400) X10^3/uL Neut % (Auto) 44.9 L (50-75) % Lymph % (Auto) 34.9 (25-40) % [place] % (Auto) 10.1 (3-14) % Eos % (Auto) 8.9 H (2-4) % Baso % (Auto) 1.2 (0-2) % Neut # (Auto) 2500 (5646-5896) /uL Lymph # (Auto) 1900 (9631-4725) /uL [place] # (Auto) 600 (0-900) /uL Eos # (Auto) 500 H (0-450) /uL Baso # (Auto) 100 (0-100) /uL Sodium 139 (137-145) mmol/L Potassium 4.3 (3.4-5.1) mmol/L Chloride 107 (98-107) mmol/L Carbon Dioxide 24 (22-32) mmol/L BUN 25 H (9-20) mg/dL Creatinine 1.11 (0.66-1.25) mg/dL Estimated GFR > 60 (>60) mL/min BUN/Creatinine Ratio 22.5 H (6-22) Glucose 79 L (80-110) mg/dL Calcium 9.5 (8.4-10.2) mg/dL Total Bilirubin 0.7 (0.2-1.3) mg/dL AST 45 (17-59) IU/L ALT 28 (<50) IU/L Alkaline Phosphatase 357 H (38-126) U/L Total Protein 7.8 (6.3-8.2) g/dL Albumin 3.8 (3.5-5.0) g/dL Globulin 4.0 (1.7-4.1) g/dL Albumin/Globulin Ratio 1.0 (1.0-2.8) TSH 4.78 H D (0.47-4.68) uIU/mL Free T4 0.78 (0.78-2.19) ng/dL Urine Color Urine Appearance Urine pH (4.5-8.0) Ur Specific [place] (1.000-1.035) Urine Protein (Negative) Urine Glucose (UA) (Negative) g/dL Urine Ketones (NEGATIVE) Urine Occult Blood (Negative) Urine Nitrate (Negative) Urine Bilirubin (NEGATIVE) Urine Urobilinogen (0.2) E.U./dL Ur Leukocyte Esterase (NEGATIVE) Urine RBC (0-5/HPF) Urine WBC (0-5/HPF) Ur Squamous Epith Cells (0-5/HPF) Urine Bacteria (None) Ur Culture Indicated? U Opiates 300ng/mL cut (Negative) Ur Oxycodone Screen (Negative) Urine Methadone Screen (Negative) Ur Barbiturates Screen (Negative) U Tricyclic Antidepress (Negative) Ur Phencyclidine Scrn (Negative) Ur Amphetamines Screen (Negative) U Methamphetamines Scrn (Negative) Ur MDMA Scrn (Ecstasy) (Negative) U Benzodiazepines Scrn (Negative) Urine Cocaine Screen (Negative) U Marijuana (THC) Screen (Negative) Ethyl Alcohol < 10 ( - 10) mg/dL SARS-CoV-2 (PCR) (Negative) 05/19/22 05/19/22 05/19/22 Range/Units 10:16 13:09 13:09 WBC (4.5-11.0) X10^3/uL RBC (4.5-5.9) X10^6/uL Hgb (13.5-17.5) g/dL Hct (41-53) % MCV (80-100) fL MCH (26-34) PG MCHC (30-36) % RDW (11.6-14.8) % Plt Count (150-400) X10^3/uL Neut % (Auto) (50-75) % Lymph % (Auto) (25-40) % [place] % (Auto) (3-14) % Eos % (Auto) (2-4) % Baso % (Auto) (0-2) % Neut # (Auto) (6080-9938) /uL Lymph # (Auto) (5100-4896) /uL [place] # (Auto) (0-900) /uL Eos # (Auto) (0-450) /uL Baso # (Auto) (0-100) /uL Sodium (137-145) mmol/L Potassium (3.4-5.1) mmol/L Chloride (98-107) mmol/L Carbon Dioxide (22-32) mmol/L BUN (9-20) mg/dL Creatinine (0.66-1.25) mg/dL Estimated GFR (>60) mL/min BUN/Creatinine Ratio (6-22) Glucose (80-110) mg/dL Calcium (8.4-10.2) mg/dL Total Bilirubin (0.2-1.3) mg/dL AST (17-59) IU/L ALT (<50) IU/L Alkaline Phosphatase (38-126) U/L Total Protein (6.3-8.2) g/dL Albumin (3.5-5.0) g/dL Globulin (1.7-4.1) g/dL Albumin/Globulin Ratio (1.0-2.8) TSH (0.47-4.68) uIU/mL Free T4 (0.78-2.19) ng/dL Urine Color Yellow Urine Appearance Clear Urine pH 5.0 (4.5-8.0) Ur Specific [place] 1.025 (1.000-1.035) Urine Protein Trace H (Negative) Urine Glucose (UA) Trace H (Negative) g/dL Urine Ketones Negative (NEGATIVE) Urine Occult Blood Trace-lysed (Negative) Urine Nitrate Negative (Negative) Urine Bilirubin Negative (NEGATIVE) Urine Urobilinogen 0.2 (0.2) E.U./dL Ur Leukocyte Esterase Trace H (NEGATIVE) Urine RBC 5-10/hpf H (0-5/HPF) Urine WBC 5-10/hpf H (0-5/HPF) Ur Squamous Epith Cells 1-5 /hpf (0-5/HPF) Urine Bacteria None seen (None) Ur Culture Indicated? Specimen cultured U Opiates 300ng/mL cut Positive H (Negative) Ur Oxycodone Screen Negative (Negative) Urine Methadone Screen Negative (Negative) Ur Barbiturates Screen Negative (Negative) U Tricyclic Antidepress Negative (Negative) Ur Phencyclidine Scrn Negative (Negative) Ur Amphetamines Screen Negative (Negative) U Methamphetamines Scrn Negative (Negative) Ur MDMA Scrn (Ecstasy) Negative (Negative) U Benzodiazepines Scrn Positive H (Negative) Urine Cocaine Screen Negative (Negative) U Marijuana (THC) Screen Positive H (Negative) Ethyl Alcohol ( - 10) mg/dL SARS-CoV-2 (PCR) Positive H (Negative) 05/21/22 05/21/22 05/21/22 Range/Units 09:45 10:10 10:10 WBC 4.4 L (4.5-11.0) X10^3/uL RBC 3.89 L (4.5-5.9) X10^6/uL Hgb 11.9 L (13.5-17.5) g/dL Hct 35.1 L (41-53) % MCV 90.3 D (80-100) fL MCH 30.7 (26-34) PG MCHC 34.0 (30-36) % RDW 14.4 (11.6-14.8) % Plt Count 288 (150-400) X10^3/uL Neut % (Auto) 51.6 (50-75) % Lymph % (Auto) 29.1 (25-40) % [place] % (Auto) 8.1 (3-14) % Eos % (Auto) 9.3 H (2-4) % Baso % (Auto) 1.9 (0-2) % Neut # (Auto) 2300 (4936-2833) /uL Lymph # (Auto) 1300 (8914-5185) /uL [place] # (Auto) 400 (0-900) /uL Eos # (Auto) 400 (0-450) /uL Baso # (Auto) 100 (0-100) /uL Sodium 140 (137-145) mmol/L Potassium 3.8 (3.4-5.1) mmol/L Chloride 103 (98-107) mmol/L Carbon Dioxide 29 (22-32) mmol/L BUN 18 (9-20) mg/dL Creatinine 1.00 (0.66-1.25) mg/dL Estimated GFR > 60 (>60) mL/min BUN/Creatinine Ratio 18.0 (6-22) Glucose 94 (80-110) mg/dL Calcium 9.6 (8.4-10.2) mg/dL Total Bilirubin (0.2-1.3) mg/dL AST (17-59) IU/L ALT (<50) IU/L Alkaline Phosphatase (38-126) U/L Total Protein (6.3-8.2) g/dL Albumin (3.5-5.0) g/dL Globulin (1.7-4.1) g/dL Albumin/Globulin Ratio (1.0-2.8) TSH (0.47-4.68) uIU/mL Free T4 (0.78-2.19) ng/dL Urine Color Urine Appearance Urine pH (4.5-8.0) Ur Specific [place] (1.000-1.035) Urine Protein (Negative) Urine Glucose (UA) (Negative) g/dL Urine Ketones (NEGATIVE) Urine Occult Blood (Negative) Urine Nitrate (Negative) Urine Bilirubin (NEGATIVE) Urine Urobilinogen (0.2) E.U./dL Ur Leukocyte Esterase (NEGATIVE) Urine RBC (0-5/HPF) Urine WBC (0-5/HPF) Ur Squamous Epith Cells (0-5/HPF) Urine Bacteria (None) Ur Culture Indicated? U Opiates 300ng/mL cut (Negative) Ur Oxycodone Screen (Negative) Urine Methadone Screen (Negative) Ur Barbiturates Screen (Negative) U Tricyclic Antidepress (Negative) Ur Phencyclidine Scrn (Negative) Ur Amphetamines Screen (Negative) U Methamphetamines Scrn (Negative) Ur MDMA Scrn (Ecstasy) (Negative) U Benzodiazepines Scrn (Negative) Urine Cocaine Screen (Negative) U Marijuana (THC) Screen (Negative) Ethyl Alcohol ( - 10) mg/dL SARS-CoV-2 (PCR) Positive H (Negative) MDM Narrative Medical decision making narrative: Dr conroy 05/19/22: Received turned over. Patient is medically cleared. I did talk with the patient and tell him that we are waiting for social work to evaluate him. Patient has been evaluated by social work. Home medications ordered. SCDs ordered. Diet ordered. Care turned over to Dr. Kulkarni to continue to follow until disposition. Cayla 05/19/22-patient signed out to me by Dr. Conroy. No issue with patient overnight awaiting placement. Social work involved. May be a difficult placement consider his admission. Dr conroy: 05/20/22 1536: Re assumed care this morning of patient. He is at baseline with my evaluation yesterday. He has been receiving his home medications. Has been tolerating oral intake. Patient again has been seen by social work. It is my opinion that the patient is unsafe to be discharged home unless his family is willing to take care of him. He can get out of bed and use a walker however he does need assistance. I feel that he does need 24/7 assistance with his activities of daily living. I think that this can be provided by his family if they are willing to do so otherwise patient is unsafe to be discharged home. Care turned over to Dr. Kulkarni to continue to observe until disposition. Dr Conroy: 05/21/22 resume care of the patient this morning. Continues to be stable. Repeat labs ordered this morning and are unremarkable. Patient is tolerating oral intake. Care turned over to Dr. Kulkarni to continue to observe until disposition. Dr. Sequeira 05/22/22. Patient signed out to myself by Dr. Kulkarni. Patient has been stable overnight am labs were ordered and reviewed from yesterday. Patient receiving home medications. Placement has been quite difficult for the patient. No additional issues during the day. [employer] has spoke with son he may be coming to chart picker patient today or early tomorrow am. She has not spoken with [id number] yet. Patient signed out to Dr. Singleton while awaiting possible disposition home with son. Patient may still be here in the am after his shift is over. <Mark Singleton MD - Last Filed: 05/23/22 22:47> Lab Data Labs: Lab Results 05/18/22 05/18/22 05/18/22 Range/Units 20:30 20:30 20:30 WBC 5.5 (4.5-11.0) X10^3/uL RBC 3.63 L (4.5-5.9) X10^6/uL Hgb 11.2 L (13.5-17.5) g/dL Hct 34.1 L (41-53) % MCV 93.7 (80-100) fL MCH 30.7 (26-34) PG MCHC 32.8 (30-36) % RDW 14.7 (11.6-14.8) % Plt Count 230 (150-400) X10^3/uL Neut % (Auto) 44.9 L (50-75) % Lymph % (Auto) 34.9 (25-40) % [place] % (Auto) 10.1 (3-14) % Eos % (Auto) 8.9 H (2-4) % Baso % (Auto) 1.2 (0-2) % Neut # (Auto) 2500 (3621-6429) /uL Lymph # (Auto) 1900 (4622-8008) /uL [place] # (Auto) 600 (0-900) /uL Eos # (Auto) 500 H (0-450) /uL Baso # (Auto) 100 (0-100) /uL Sodium 139 (137-145) mmol/L Potassium 4.3 (3.4-5.1) mmol/L Chloride 107 (98-107) mmol/L Carbon Dioxide 24 (22-32) mmol/L BUN 25 H (9-20) mg/dL Creatinine 1.11 (0.66-1.25) mg/dL Estimated GFR > 60 (>60) mL/min BUN/Creatinine Ratio 22.5 H (6-22) Glucose 79 L (80-110) mg/dL Calcium 9.5 (8.4-10.2) mg/dL Total Bilirubin 0.7 (0.2-1.3) mg/dL AST 45 (17-59) IU/L ALT 28 (<50) IU/L Alkaline Phosphatase 357 H (38-126) U/L Total Protein 7.8 (6.3-8.2) g/dL Albumin 3.8 (3.5-5.0) g/dL Globulin 4.0 (1.7-4.1) g/dL Albumin/Globulin Ratio 1.0 (1.0-2.8) TSH 4.78 H D (0.47-4.68) uIU/mL Free T4 0.78 (0.78-2.19) ng/dL Urine Color Urine Appearance Urine pH (4.5-8.0) Ur Specific [place] (1.000-1.035) Urine Protein (Negative) Urine Glucose (UA) (Negative) g/dL Urine Ketones (NEGATIVE) Urine Occult Blood (Negative) Urine Nitrate (Negative) Urine Bilirubin (NEGATIVE) Urine Urobilinogen (0.2) E.U./dL Ur Leukocyte Esterase (NEGATIVE) Urine RBC (0-5/HPF) Urine WBC (0-5/HPF) Ur Squamous Epith Cells (0-5/HPF) Urine Bacteria (None) Ur Culture Indicated? U Opiates 300ng/mL cut (Negative) Ur Oxycodone Screen (Negative) Urine Methadone Screen (Negative) Ur Barbiturates Screen (Negative) U Tricyclic Antidepress (Negative) Ur Phencyclidine Scrn (Negative) Ur Amphetamines Screen (Negative) U Methamphetamines Scrn (Negative) Ur MDMA Scrn (Ecstasy) (Negative) U Benzodiazepines Scrn (Negative) Urine Cocaine Screen (Negative) U Marijuana (THC) Screen (Negative) Ethyl Alcohol < 10 ( - 10) mg/dL SARS-CoV-2 (PCR) (Negative) 05/19/22 05/19/22 05/19/22 Range/Units 10:16 13:09 13:09 WBC (4.5-11.0) X10^3/uL RBC (4.5-5.9) X10^6/uL Hgb (13.5-17.5) g/dL Hct (41-53) % MCV (80-100) fL MCH (26-34) PG MCHC (30-36) % RDW (11.6-14.8) % Plt Count (150-400) X10^3/uL Neut % (Auto) (50-75) % Lymph % (Auto) (25-40) % [place] % (Auto) (3-14) % Eos % (Auto) (2-4) % Baso % (Auto) (0-2) % Neut # (Auto) (6944-0326) /uL Lymph # (Auto) (8296-7306) /uL [place] # (Auto) (0-900) /uL Eos # (Auto) (0-450) /uL Baso # (Auto) (0-100) /uL Sodium (137-145) mmol/L Potassium (3.4-5.1) mmol/L Chloride (98-107) mmol/L Carbon Dioxide (22-32) mmol/L BUN (9-20) mg/dL Creatinine (0.66-1.25) mg/dL Estimated GFR (>60) mL/min BUN/Creatinine Ratio (6-22) Glucose (80-110) mg/dL Calcium (8.4-10.2) mg/dL Total Bilirubin (0.2-1.3) mg/dL AST (17-59) IU/L ALT (<50) IU/L Alkaline Phosphatase (38-126) U/L Total Protein (6.3-8.2) g/dL Albumin (3.5-5.0) g/dL Globulin (1.7-4.1) g/dL Albumin/Globulin Ratio (1.0-2.8) TSH (0.47-4.68) uIU/mL Free T4 (0.78-2.19) ng/dL Urine Color Yellow Urine Appearance Clear Urine pH 5.0 (4.5-8.0) Ur Specific [place] 1.025 (1.000-1.035) Urine Protein Trace H (Negative) Urine Glucose (UA) Trace H (Negative) g/dL Urine Ketones Negative (NEGATIVE) Urine Occult Blood Trace-lysed (Negative) Urine Nitrate Negative (Negative) Urine Bilirubin Negative (NEGATIVE) Urine Urobilinogen 0.2 (0.2) E.U./dL Ur Leukocyte Esterase Trace H (NEGATIVE) Urine RBC 5-10/hpf H (0-5/HPF) Urine WBC 5-10/hpf H (0-5/HPF) Ur Squamous Epith Cells 1-5 /hpf (0-5/HPF) Urine Bacteria None seen (None) Ur Culture Indicated? Specimen cultured U Opiates 300ng/mL cut Positive H (Negative) Ur Oxycodone Screen Negative (Negative) Urine Methadone Screen Negative (Negative) Ur Barbiturates Screen Negative (Negative) U Tricyclic Antidepress Negative (Negative) Ur Phencyclidine Scrn Negative (Negative) Ur Amphetamines Screen Negative (Negative) U Methamphetamines Scrn Negative (Negative) Ur MDMA Scrn (Ecstasy) Negative (Negative) U Benzodiazepines Scrn Positive H (Negative) Urine Cocaine Screen Negative (Negative) U Marijuana (THC) Screen Positive H (Negative) Ethyl Alcohol ( - 10) mg/dL SARS-CoV-2 (PCR) Positive H (Negative) 05/21/22 05/21/22 05/21/22 Range/Units 09:45 10:10 10:10 WBC 4.4 L (4.5-11.0) X10^3/uL RBC 3.89 L (4.5-5.9) X10^6/uL Hgb 11.9 L (13.5-17.5) g/dL Hct 35.1 L (41-53) % MCV 90.3 D (80-100) fL MCH 30.7 (26-34) PG MCHC 34.0 (30-36) % RDW 14.4 (11.6-14.8) % Plt Count 288 (150-400) X10^3/uL Neut % (Auto) 51.6 (50-75) % Lymph % (Auto) 29.1 (25-40) % [place] % (Auto) 8.1 (3-14) % Eos % (Auto) 9.3 H (2-4) % Baso % (Auto) 1.9 (0-2) % Neut # (Auto) 2300 (9820-8820) /uL Lymph # (Auto) 1300 (8000-2955) /uL [place] # (Auto) 400 (0-900) /uL Eos # (Auto) 400 (0-450) /uL Baso # (Auto) 100 (0-100) /uL Sodium 140 (137-145) mmol/L Potassium 3.8 (3.4-5.1) mmol/L Chloride 103 (98-107) mmol/L Carbon Dioxide 29 (22-32) mmol/L BUN 18 (9-20) mg/dL Creatinine 1.00 (0.66-1.25) mg/dL Estimated GFR > 60 (>60) mL/min BUN/Creatinine Ratio 18.0 (6-22) Glucose 94 (80-110) mg/dL Calcium 9.6 (8.4-10.2) mg/dL Total Bilirubin (0.2-1.3) mg/dL AST (17-59) IU/L ALT (<50) IU/L Alkaline Phosphatase (38-126) U/L Total Protein (6.3-8.2) g/dL Albumin (3.5-5.0) g/dL Globulin (1.7-4.1) g/dL Albumin/Globulin Ratio (1.0-2.8) TSH (0.47-4.68) uIU/mL Free T4 (0.78-2.19) ng/dL Urine Color Urine Appearance Urine pH (4.5-8.0) Ur Specific [place] (1.000-1.035) Urine Protein (Negative) Urine Glucose (UA) (Negative) g/dL Urine Ketones (NEGATIVE) Urine Occult Blood (Negative) Urine Nitrate (Negative) Urine Bilirubin (NEGATIVE) Urine Urobilinogen (0.2) E.U./dL Ur Leukocyte Esterase (NEGATIVE) Urine RBC (0-5/HPF) Urine WBC (0-5/HPF) Ur Squamous Epith Cells (0-5/HPF) Urine Bacteria (None) Ur Culture Indicated? U Opiates 300ng/mL cut (Negative) Ur Oxycodone Screen (Negative) Urine Methadone Screen (Negative) Ur Barbiturates Screen (Negative) U Tricyclic Antidepress (Negative) Ur Phencyclidine Scrn (Negative) Ur Amphetamines Screen (Negative) U Methamphetamines Scrn (Negative) Ur MDMA Scrn (Ecstasy) (Negative) U Benzodiazepines Scrn (Negative) Urine Cocaine Screen (Negative) U Marijuana (THC) Screen (Negative) Ethyl Alcohol ( - 10) mg/dL SARS-CoV-2 (PCR) Positive H (Negative) <Wendy Whitney MD - Last Filed: 05/23/22 13:02> Lab Data Labs: Lab Results 05/18/22 05/18/22 05/18/22 Range/Units 20:30 20:30 20:30 WBC 5.5 (4.5-11.0) X10^3/uL RBC 3.63 L (4.5-5.9) X10^6/uL Hgb 11.2 L (13.5-17.5) g/dL Hct 34.1 L (41-53) % MCV 93.7 (80-100) fL MCH 30.7 (26-34) PG MCHC 32.8 (30-36) % RDW 14.7 (11.6-14.8) % Plt Count 230 (150-400) X10^3/uL Neut % (Auto) 44.9 L (50-75) % Lymph % (Auto) 34.9 (25-40) % [place] % (Auto) 10.1 (3-14) % Eos % (Auto) 8.9 H (2-4) % Baso % (Auto) 1.2 (0-2) % Neut # (Auto) 2500 (2249-4211) /uL Lymph # (Auto) 1900 (0086-6595) /uL [place] # (Auto) 600 (0-900) /uL Eos # (Auto) 500 H (0-450) /uL Baso # (Auto) 100 (0-100) /uL Sodium 139 (137-145) mmol/L Potassium 4.3 (3.4-5.1) mmol/L Chloride 107 (98-107) mmol/L Carbon Dioxide 24 (22-32) mmol/L BUN 25 H (9-20) mg/dL Creatinine 1.11 (0.66-1.25) mg/dL Estimated GFR > 60 (>60) mL/min BUN/Creatinine Ratio 22.5 H (6-22) Glucose 79 L (80-110) mg/dL Calcium 9.5 (8.4-10.2) mg/dL Total Bilirubin 0.7 (0.2-1.3) mg/dL AST 45 (17-59) IU/L ALT 28 (<50) IU/L Alkaline Phosphatase 357 H (38-126) U/L Total Protein 7.8 (6.3-8.2) g/dL Albumin 3.8 (3.5-5.0) g/dL Globulin 4.0 (1.7-4.1) g/dL Albumin/Globulin Ratio 1.0 (1.0-2.8) TSH 4.78 H D (0.47-4.68) uIU/mL Free T4 0.78 (0.78-2.19) ng/dL Urine Color Urine Appearance Urine pH (4.5-8.0) Ur Specific [place] (1.000-1.035) Urine Protein (Negative) Urine Glucose (UA) (Negative) g/dL Urine Ketones (NEGATIVE) Urine Occult Blood (Negative) Urine Nitrate (Negative) Urine Bilirubin (NEGATIVE) Urine Urobilinogen (0.2) E.U./dL Ur Leukocyte Esterase (NEGATIVE) Urine RBC (0-5/HPF) Urine WBC (0-5/HPF) Ur Squamous Epith Cells (0-5/HPF) Urine Bacteria (None) Ur Culture Indicated? U Opiates 300ng/mL cut (Negative) Ur Oxycodone Screen (Negative) Urine Methadone Screen (Negative) Ur Barbiturates Screen (Negative) U Tricyclic Antidepress (Negative) Ur Phencyclidine Scrn (Negative) Ur Amphetamines Screen (Negative) U Methamphetamines Scrn (Negative) Ur MDMA Scrn (Ecstasy) (Negative) U Benzodiazepines Scrn (Negative) Urine Cocaine Screen (Negative) U Marijuana (THC) Screen (Negative) Ethyl Alcohol < 10 ( - 10) mg/dL SARS-CoV-2 (PCR) (Negative) 05/19/22 05/19/22 05/19/22 Range/Units 10:16 13:09 13:09 WBC (4.5-11.0) X10^3/uL RBC (4.5-5.9) X10^6/uL Hgb (13.5-17.5) g/dL Hct (41-53) % MCV (80-100) fL MCH (26-34) PG MCHC (30-36) % RDW (11.6-14.8) % Plt Count (150-400) X10^3/uL Neut % (Auto) (50-75) % Lymph % (Auto) (25-40) % [place] % (Auto) (3-14) % Eos % (Auto) (2-4) % Baso % (Auto) (0-2) % Neut # (Auto) (1215-7282) /uL Lymph # (Auto) (7142-7864) /uL [place] # (Auto) (0-900) /uL Eos # (Auto) (0-450) /uL Baso # (Auto) (0-100) /uL Sodium (137-145) mmol/L Potassium (3.4-5.1) mmol/L Chloride (98-107) mmol/L Carbon Dioxide (22-32) mmol/L BUN (9-20) mg/dL Creatinine (0.66-1.25) mg/dL Estimated GFR (>60) mL/min BUN/Creatinine Ratio (6-22) Glucose (80-110) mg/dL Calcium (8.4-10.2) mg/dL Total Bilirubin (0.2-1.3) mg/dL AST (17-59) IU/L ALT (<50) IU/L Alkaline Phosphatase (38-126) U/L Total Protein (6.3-8.2) g/dL Albumin (3.5-5.0) g/dL Globulin (1.7-4.1) g/dL Albumin/Globulin Ratio (1.0-2.8) TSH (0.47-4.68) uIU/mL Free T4 (0.78-2.19) ng/dL Urine Color Yellow Urine Appearance Clear Urine pH 5.0 (4.5-8.0) Ur Specific [place] 1.025 (1.000-1.035) Urine Protein Trace H (Negative) Urine Glucose (UA) Trace H (Negative) g/dL Urine Ketones Negative (NEGATIVE) Urine Occult Blood Trace-lysed (Negative) Urine Nitrate Negative (Negative) Urine Bilirubin Negative (NEGATIVE) Urine Urobilinogen 0.2 (0.2) E.U./dL Ur Leukocyte Esterase Trace H (NEGATIVE) Urine RBC 5-10/hpf H (0-5/HPF) Urine WBC 5-10/hpf H (0-5/HPF) Ur Squamous Epith Cells 1-5 /hpf (0-5/HPF) Urine Bacteria None seen (None) Ur Culture Indicated? Specimen cultured U Opiates 300ng/mL cut Positive H (Negative) Ur Oxycodone Screen Negative (Negative) Urine Methadone Screen Negative (Negative) Ur Barbiturates Screen Negative (Negative) U Tricyclic Antidepress Negative (Negative) Ur Phencyclidine Scrn Negative (Negative) Ur Amphetamines Screen Negative (Negative) U Methamphetamines Scrn Negative (Negative) Ur MDMA Scrn (Ecstasy) Negative (Negative) U Benzodiazepines Scrn Positive H (Negative) Urine Cocaine Screen Negative (Negative) U Marijuana (THC) Screen Positive H (Negative) Ethyl Alcohol ( - 10) mg/dL SARS-CoV-2 (PCR) Positive H (Negative) 05/21/22 05/21/22 05/21/22 Range/Units 09:45 10:10 10:10 WBC 4.4 L (4.5-11.0) X10^3/uL RBC 3.89 L (4.5-5.9) X10^6/uL Hgb 11.9 L (13.5-17.5) g/dL Hct 35.1 L (41-53) % MCV 90.3 D (80-100) fL MCH 30.7 (26-34) PG MCHC 34.0 (30-36) % RDW 14.4 (11.6-14.8) % Plt Count 288 (150-400) X10^3/uL Neut % (Auto) 51.6 (50-75) % Lymph % (Auto) 29.1 (25-40) % [place] % (Auto) 8.1 (3-14) % Eos % (Auto) 9.3 H (2-4) % Baso % (Auto) 1.9 (0-2) % Neut # (Auto) 2300 (8028-8620) /uL Lymph # (Auto) 1300 (7972-9892) /uL [place] # (Auto) 400 (0-900) /uL Eos # (Auto) 400 (0-450) /uL Baso # (Auto) 100 (0-100) /uL Sodium 140 (137-145) mmol/L Potassium 3.8 (3.4-5.1) mmol/L Chloride 103 (98-107) mmol/L Carbon Dioxide 29 (22-32) mmol/L BUN 18 (9-20) mg/dL Creatinine 1.00 (0.66-1.25) mg/dL Estimated GFR > 60 (>60) mL/min BUN/Creatinine Ratio 18.0 (6-22) Glucose 94 (80-110) mg/dL Calcium 9.6 (8.4-10.2) mg/dL Total Bilirubin (0.2-1.3) mg/dL AST (17-59) IU/L ALT (<50) IU/L Alkaline Phosphatase (38-126) U/L Total Protein (6.3-8.2) g/dL Albumin (3.5-5.0) g/dL Globulin (1.7-4.1) g/dL Albumin/Globulin Ratio (1.0-2.8) TSH (0.47-4.68) uIU/mL Free T4 (0.78-2.19) ng/dL Urine Color Urine Appearance Urine pH (4.5-8.0) Ur Specific Linwood (1.000-1.035) Urine Protein (Negative) Urine Glucose (UA) (Negative) g/dL Urine Ketones (NEGATIVE) Urine Occult Blood (Negative) Urine Nitrate (Negative) Urine Bilirubin (NEGATIVE) Urine Urobilinogen (0.2) E.U./dL Ur Leukocyte Esterase (NEGATIVE) Urine RBC (0-5/HPF) Urine WBC (0-5/HPF) Ur Squamous Epith Cells (0-5/HPF) Urine Bacteria (None) Ur Culture Indicated? U Opiates 300ng/mL cut (Negative) Ur Oxycodone Screen (Negative) Urine Methadone Screen (Negative) Ur Barbiturates Screen (Negative) U Tricyclic Antidepress (Negative) Ur Phencyclidine Scrn (Negative) Ur Amphetamines Screen (Negative) U Methamphetamines Scrn (Negative) Ur MDMA Scrn (Ecstasy) (Negative) U Benzodiazepines Scrn (Negative) Urine Cocaine Screen (Negative) U Marijuana (THC) Screen (Negative) Ethyl Alcohol ( - 10) mg/dL SARS-CoV-2 (PCR) Positive H (Negative) MDM Narrative Medical decision making narrative: Dr conroy 05/19/22: Received turned over. Patient is medically cleared. I did talk with the patient and tell him that we are waiting for social work to evaluate him. Patient has been evaluated by social work. Home medications ordered. SCDs ordered. Diet ordered. Care turned over to Dr. Kulkarni to continue to follow until disposition. Cayla 05/19/22-patient signed out to me by Dr. Conroy. No issue with patient overnight awaiting placement. Social work involved. May be a difficult placement consider his admission. Dr conroy: 05/20/22 1536: Re assumed care this morning of patient. He is at baseline with my evaluation yesterday. He has been receiving his home medications. Has been tolerating oral intake. Patient again has been seen by social work. It is my opinion that the patient is unsafe to be discharged home unless his family is willing to take care of him. He can get out of bed and use a walker however he does need assistance. I feel that he does need 24/7 assistance with his activities of daily living. I think that this can be provided by his family if they are willing to do so otherwise patient is unsafe to be discharged home. Care turned over to Dr. Kulkarni to continue to observe until disposition. Dr Conroy: 05/21/22 resume care of the patient this morning. Continues to be stable. Repeat labs ordered this morning and are unremarkable. Patient is tolerating oral intake. Care turned over to Dr. Kulkarni to continue to observe until disposition. Dr. Sequeira 05/22/22. Patient signed out to myself by Dr. Kulkarni. Patient has been stable overnight am labs were ordered and reviewed from yesterday. Patient receiving home medications. Placement has been quite difficult for the patient. No additional issues during the day. [employer] has spoke with son he may be coming to chart picker patient today or early tomorrow am. She has not spoken with [id number] yet. Patient signed out to Dr. Singleton while awaiting possible disposition home with son. Patient may still be here in the am after his shift is over. 05/23/[address] Whitney. Son is availalbel to pick his father up Discharge Plan Departure Patient Disposition: Home Clinical Impression: Adult failure to thrive, Dementia, Weakness Activity Restrictions/Additional Instructions: Sorry that there have been so many difficulties with helping you find the best living situation and best care. Unfortunately, we are not able to do anything else in the hospital or the emergency department. Social workers have given you additional resources to look at dementia care facilities and additional living situation options. At this time, there is no acute medical need for hospitalization. Gareth would clearly benefit from more structured living situation Prescriptions: No Action sertraline 50 mg tablet 50 mg PO DAILY levothyroxine 125 mcg tablet 150 mcg PO DAILY meclizine 12.5 mg Tablet 25 mg PO Q6HR PRN (Reason: Vertigo) Qty: 15 0RF clopidogrel 75 mg Tablet 75 mg PO DAILY Qty: 30 0RF hydrocodone-acetaminophen 10-325 mg Tablet 1 tab PO Q4HR PRN (Reason: Pain, Moderate (4-6)) Qty: 20 0RF hydroxyzine HCl 25 mg Tablet 25 mg PO QID PRN (Reason: Itching) lovastatin 40 mg Tablet 40 mg PO QPM Referrals: Robles Mane MD [Primary Care Provider] - Visit Report Forms: Patient Portal/API
--- NOTE | 2022-05-18 20:08 | PC.NURSE ---
pt's [id number] presented to registration asking for help, Michaela ([id number]) stated the pt was brought to her home after dc from the hospital. She has been attempting to care for him but his has been masturbating in front of her 14 y/o child and threatening to kill the child and himself. Michaela is very tear ful stating she does not know what to do she states there is a restraining order against the pt's son (her ) she has offered to move out of the house to allow the son to move in and take care of his dad but the early intervention school psychologist will not allow it Michaela states they have another court date tomorrow and she is going to ask again if she can move out to allow this. Michaela states the pt has 4 sons that all live locally that could take care of the pt but none of them are willing to help. Michaela is very apologetic and tearful stating she doesn't know what else to do. She also states no one from [facility] has been out to assist with the care. explained to Michaela that the pt could not be dropped off with the plan to just leave him here but we would be happy to evaluate and treat the pt to address the SI/HI issues. Michaela said she can be reached @ [phone]. The son is Sudhakar's is [phone]
[2022-05-18 20:25] VITALS: BP 206/95; PULSE 45; RESP 12; TEMP 36.6; O2SAT 99
[2022-05-18 20:51] LABS: Add Manual Diff / Slide Review NO; Basophils Absolute Auto 100 /uL (0-100); Basophils Percent Auto 1.2 % (0-2); Eosinophils Absolute Auto 500 /uL (0-450); Eosinophils Percent Auto 8.9 % (2-4); Hematocrit 34.1 % (41-53); Hemoglobin 11.2 g/dL (13.5-17.5); Lymphocytes Absolute Auto 1900 /uL (1100-4500); Lymphocytes Percent Auto 34.9 % (25-40); Mean Corpuscular HGB Conc 32.8 % (30-36); Mean Corpuscular Hemoglobin 30.7 PG (26-34); Mean Corpuscular Volume 93.7 fL (80-100); Monocytes Absolute Auto 600 /uL (0-900); Monocytes Percent Auto 10.1 % (3-14); Neutrophils Absolute Auto 2500 /uL (1500-7000); Neutrophils Percent Auto 44.9 % (50-75); Platelet Count 230 X10^3/uL (150-400); Red Blood Cell Count 3.63 X10^6/uL (4.5-5.9); Red Cell Distribution Width 14.7 % (11.6-14.8); White Blood Cell Count 5.5 X10^3/uL (4.5-11.0)
[2022-05-18 21:11] LABS: Alanine Aminotransferase 28 IU/L (<50); Albumin 3.8 g/dL (3.5-5.0); Alkaline Phosphatase 357 U/L (38-126); Aspartate Aminotransferase 45 IU/L (17-59); BUN Creatinine Ratio 22.5 (6-22); Bilirubin Total 0.7 mg/dL (0.2-1.3); Blood Urea Nitrogen 25 mg/dL (9-20); Calcium 9.5 mg/dL (8.4-10.2); Carbon Dioxide 24 mmol/L (22-32); Chloride 107 mmol/L (98-107); Estimated Glomerular Filt Rate > 60 mL/min (>60); Ethanol (ETOH) < 10 mg/dL; Glucose 79 mg/dL (80-110); Potassium 4.3 mmol/L (3.4-5.1); Sodium 139 mmol/L (137-145); Total Protein 7.8 g/dL (6.3-8.2)
[2022-05-18 21:17] LABS: HEMOLYSIS 56 (0-50)
[2022-05-18 21:43] LABS: TSH w/ Reflex to FT4 4.78 uIU/mL (0.47-4.68)
--- NOTE | 2022-05-18 21:52 | PC.NURSE ---
Patient tried to urinate but couldn't
[2022-05-18 22:04] VITALS: BP 148/111; PULSE 41; RESP 12; O2SAT 98
[2022-05-18 22:10] LABS: Free T4, Direct Thyroxine 0.78 ng/dL (0.78-2.19)
[2022-05-19] VITALS (13 sets, daily range): BP systolic 160–177; BP diastolic 74–81; PULSE 40–68; RESP 12–18; O2SAT 94–100
--- NOTE | 2022-05-19 05:30 | PC.NURSE ---
Patient appears to be resting comfortably, has not requested to use bathroom or urinal but during assessment check patient does have a strong odor of urine. Pericare to be performed.
--- NOTE | 2022-05-19 07:02 | PC.NURSE ---
pt skin was in tact and showed no breakdown upon changing him and giving rosita care
--- NOTE | 2022-05-19 09:40 | PC.NURSE ---
Addendum entered by Steven Sanchez CNA 05/19/22 09:44: Patient eating 2x bowls of rice crispies with added sugar and milk. Sitting in chair, call light in reach. Pillow placed under patients bottom and another behind his back. Original Note: Patient was informed that he needed to get out of bed multiple times a day to help prevent bed sores and maintain the ability to move around independently. Patient used curse words and then stated I needed to get him out of bed. I told patient I would help him up to the chair, but he needs to help with his own efforts. Patient was able to stand with assistance, once standing with the walker he was able to rotate to sit in the chair with me standing by. He tolerated the repositioning well but takes lots of encouragement to get him to put effort into repositioning.
[2022-05-19] MEDS: LEVOTHYROXINE 150 MCG TABLET PO (09:42)
[2022-05-19] MEDS: CLOPIDOGREL 75 MG TABLET PO (10:16)
--- NOTE | 2022-05-19 10:36 | PC.NURSE ---
Patient wanted to go back to bed after sitting in chair for approximately 30 minutes. Patient got upset when i tried to recline the chair and raised his voice stating to put him in bed now. I assisted patient back into bed stand by with front wheeled walker. Put 2x pillows under his bottom and ankles. Patient then states he wants to talk to the doctor because he is not receiving the care he wants. States I am not providing him with the care he needs.
[2022-05-19 10:53] LABS: COVID19 -Nasal RAPID POSITIVE (Negative)
--- NOTE | 2022-05-19 11:30 | PT.IIE ---
Medical History (Last Reviewed 05/18/22 @ 22:34 by Lanre Whyte DO) Cerebrovascular accident Chronic GERD Dementia Hyperlipidemia Hypertension Physical Therapy Inpatient Evaluation/Re-Eval M1 PT/OT-IP Prior Functional Status Start: 05/19/22 09:36 Freq: Status: Active Protocol: Document 05/19/22 11:30 AW (Rec: 05/19/22 12:55 AW [id number]) Medical Review Prior Functional Status Medical History Reviewed Yes Communication Pt is able to make his needs known Mobility and Gait Pt reports limited mobility at baseline. He typically stays in the bed and needs assist to tansfer. He will often just use a urinal but can sometimes ambulate to the bathroom (~15 feet) using FWW with assist from his son. Needs a wheelchair for longer distances. 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 He has resultant left-sided weakness. PMH includes dementia and failure to thrive. Social History Household Members children Living Arrangements House Number of Floors (Floors) One Floor Number of Stairs To Enter/Railing? There are apparently steps to enter the home but pt states his son lifts him up the stairs in his wheelchair. Home Environment Standard Height Toilet,Tub/ Shower Home Equipment Front Wheel Walker,Four Wheel Walker,Manual Wheelchair, Hospital Bed,Grab Bars Near Toilet,Grab Bars In Shower Additional Social History Comment Pt lives in [place] with his son Wander and other family members. M2 PT-IP Current Condition Start: 05/19/22 09:36 Freq: Status: Active Protocol: Document 05/19/22 11:30 AW (Rec: 05/19/22 12:55 AW [id number]) Physical Therapy Current Condition Current Condition Evaluation Date 05/19/22 Treatment Diagnosis failure to thrive; impaired mobility and gait Onset Date ongoing M3 PT-IP Subjective Start: 05/19/22 09:36 Freq: Status: Active Protocol: Document 05/19/22 11:30 AW (Rec: 05/19/22 12:55 AW [id number]) Subjective Physical Therapy Visit Type Type Initial Evaluation Visit Start Time 11:05 Visit Stop Time 11:30 Total Visit Minutes 25 Notes Pt seen in ED. Physical Therapy Visit Comments Patient Comments Can you believe they put me in this room with no windows? Patient Goals Pt is unable to state any PT goals. Therapy Pain Assessment Pain When Pain Assessed During Mobility Pain Present Pain Present Denied Pain M4 PT-IP Mobility and Gait Start: 05/19/22 09:36 Freq: Status: Active Protocol: Document 05/19/22 11:30 AW (Rec: 05/19/22 12:55 AW [id number]) PT-Bed Mobility Assessment Supine to Sit Supine to Sit Moderate Assistance,1 Person Assistance,Head of Bed Elevated Sit to Supine Sit to Supine Moderate Assistance,1 Person Assistance PT-Transfer Assessment Sit to and From Stand Sit to and from Stand Minimal Assistance,Moderate Assistance,1 Person Assistance ,Use of Upper Extremities Equipment Transfer Assistive Device Gait Belt,Front Wheeled Walker Orthotic/Prosthetic Devices or Brace: No Transfers Transfer Destination Bed,Chair Transfer Technique Stand Pivot Transfer Ability Level of Assist Minimal Assistance,Moderate Assistance,1 Person Assistance ,Use of Upper Extremities Comments Mobility Comments Pt was lying in the bed as PT arrived. He completed supine to sit mod A and was able to sit upright with UE support on the mattress. He stood min A using FWW to transfer mod A to the chair set up 3 feet away. Pt requested return to bed but stated he was too weak to return the same distance. Chair was moved next to the bed and PT provide mod A for stand pivot transfer back to bed. Pt was left with call light in reach. Gait Assessment Gait Gait Assistance Required: Minimum Assistance,Moderate Assistance Distance (Feet) 3 Assistive Devices Assistive Device Gait Belt,Front Wheeled Walker Orthotic/Prosthetic Devices or Brace: No Gait Deviations General Gait Pattern Ataxic,Decreased Stride Length ,Decreased Feet Clearance,Step -to Gait Factors Limiting Gait Function Factors Limiting Gait Function Decreased Activity Tolerance, Decreased Strength,Difficulty Following Directions,Poor Balance,Poor Safety Awareness PT-Balance Assessment Sitting Balance and Reactions Static Sitting Balance Ability Good Dynamic Sitting Balance Ability Good Standing Balance and Reactions Static Standing Balance Ability Fair Dynamic Standing Balance Ability Poor Device Used FWW M5 PT-IP Objective Assessments Start: 05/19/22 09:36 Freq: Status: Active Protocol: Document 05/19/22 11:30 AW (Rec: 05/19/22 12:55 AW [id number]) Orientation Orientation/Cognition Level of Alertness Alert Orientation Name Safety Awareness Decreased Safety Awareness Memory Description Short Term Impaired Comments Pt asked repeatedly why he was in a room without windows. Frequent reorientation had no effect. Strength Lower Extremity Strength Assessment Left Impaired Hip 3+/5 Knee 4-/5 Ankle 4-/5 Muscle Tone Muscle Tone WNL Yes M6 PT-IP Treatment Start: 05/19/22 09:36 Freq: Status: Active Protocol: Document 05/19/22 11:30 AW (Rec: 05/19/22 12:55 AW [id number]) Physical Therapy Treatment Education Education Provided Safety M7 PT-IP Assessment and Plan Start: 05/19/22 09:36 Freq: Status: Active Protocol: Document 05/19/22 11:30 AW (Rec: 05/19/22 12:55 AW [id number]) PT Summary Assessment and Plan Potential Rehabilitation Potential Fair Status of Condition at Evaluation Stable Summary Impairments ROM,Strength,Balance, Coordination,Sensation,Tone, Cognition,Bed Mobility, Transfers,Gait,Activity Tolerance Assessment Summary Gareth is a 72 yo man who had a right frontal lobe CVA earlier this year. Per chart notes, he went to inpatient rehab and then had another SNF stay a month later. At baseline, he lives with his son who provide assist with all mobility and ADL's. Pt is fairly sedentary at home, stating he mostly stays in the bed but is able to stand and transfer using FWW/4WW with his son assisting. On assessment today, pt was able to get up from the bed, walk 3 feet with FWW, and transfer with min/mod assist. He appears to be at his functional baseline and no further PT intervention is indicated at htis time. Pt will need 24/7 assist and likely needs LTC placement as his needs may well exceed what his family is able to provide at home. Frequency of Treatment Frequency Of Treatment Discharge Recommendations To Nursing Amount of Assist Needed 1 Person Assist Discharge Recommendations Transportation Needs at Discharge Private Vehicle,Wheelchair/ Cabulance
--- NOTE | 2022-05-19 11:38 | PC.NURSE ---
Pt has urinal at bedside, assistance to urinate offered, pt declines and states he spit in the bottle. Pt requesting room with a window, educated pt that no rooms in the ER have window, updated on current plan of care.
--- NOTE | 2022-05-19 11:44 | DIET.CONS ---
Dietary Consultation Note Assessment: 72y M admitted for family reported SI referred to nutrition for malnutrition screening. RD met with pt at bedside, while pt not overly conversant, pt able to answer all RD questions appropriately with adequate detail. Pt reports his usual body weight is 150#, when asked if he thinks he is below that weight, pt reports F yeah and attributes it to level of care in home environment. Nutrition Focused Physical Exam exhibits moderate loss of both muscle and fat system wide with hollowing of orbitals and temples, scooping of clavicles, obvious indentations between ribs. Pt edentulous. Per PT notes, pt able to ambulate at most 15ft with 4WW and assistance but spends majority of his time in bed. For extended mobility pt uses electric WC. Pt states he needs foods cut up or a soft diet because he does not have teeth nor dentures. Pt states he enjoys ONS such as vanilla Ensure but is not currently drinking them at home. Per nursing pt orders same breakfast daily in hospital: 2 boxes rice crispies with milk and 3 packets sugar with plain black tea. Ht: 172.7cm Wt: 51.6kg (25% below UBW) BMI: 17.3 (severe for age) UBW: 68kg Diet: 05/19/22 Breakfast General (Regular) Diet Diet Modifications: Safety Tray needed?: No Labs: RBC 3.63 X10^6/uL (4.5-5.9) L 05/18/22 20:30 Hgb 11.2 g/dL (13.5-17.5) L 05/18/22 20:30 Hct 34.1 % (41-53) L 05/18/22 20:30 Creatinine 1.11 mg/dL (0.66-1.25) 05/18/22 20:30 Nutrition Diagnosis: Severe Chronic Malnutrition r/t difficulty managing self care and complicated social history aeb BMI 17.3 (severe for age), pt is 25% below his UBW, pt c hx dementia and failure to thrive, pt requiring 24/7 care complicated by suboptimal living situation and family restraining orders. Interventions: 1. To encourage better PO intake while hospitalized, giving pt Easy Chew diet because edentulous. 2. To support malnourished state, providing ONS Ensure Enlive tid per pt request while hospitalized. 3. To support malnourished state after d/c, recc Meals on Wheels, recc pt continue ONS bid indefinitely. PCP can write Rx for ONS so can be delivered monthly with MOW foods. 4. Recc long-term care placement for medication and meal reliability. EER: 1750kcals (35kcal/kg per PCM), 65-70g PRO (1.3-1.4g/kg per PCM elder) Monitoring/Evaluations: POs, ONS tolerance Electronically Signed by: Judy Mukherjee 05/19/22 11:44 Clinical Dietitian [address] [id number]
--- NOTE | 2022-05-19 11:58 | PC.NURSE ---
Pt requesting a room with a window, re-educated. Discussed sitting up in a recliner and pt states absolutely not, educated pt on wound prevention and mobility, pt verbalizes understanding, declines sitting up in recliner. Encouraged pt to drink water at bedside r/t hydration needs, pt assisted self to drink water. Updated on plan of care.
--- NOTE | 2022-05-19 12:45 | PC.NURSE ---
Pt provided meal tray, declines sitting up in recliner. Repositioned to right side with Steven PHOTOGRAPHIC SPOTTER, heels offloaded from bed, HOB elevated. Pt educated on Q2 hourly repositioning, verbalizes understanding.
--- NOTE | 2022-05-19 13:03 | CM.SWNOTE ---
Addendum entered by CHARITY Foster 05/19/22 18:30: SW UPDATE SW attempted to call pt's son and got voicemail. SW left voicemail requesting call back as soon as possible. SW called pt's GLORIA Jennings [phone] and she stated, I have good news but I am at [employer] getting my phone fixed. Can you call back in ten minutes. JEOVANY ended call and attempted to call Michaela back 3x with no answer. JEOVANY left voicemail requesting a call back as soon as possible. CHARITY Foster Original Note: ED SW Note Pt is a 72-year-old male former smoker with history of dementia, failure to thrive, prior stroke, lives at home, essentially unable to ambulate and requires significant assistance presents with reported suicidal ideation and homicidal ideation. Pt has [employer] Medicare Advantage. Pt's son Shane previously reported that he is the POA for patient but has not yet provided documentation. SW met with pt to provide mental health evaluation. Pt is oriented to person and place but not month or year. Pt denies SI, HI, auditory hallucinations, or visual hallucinations. When asked why pt presented to the ED he stated, Because I don't get no service where I'm at. When SW asked pt to elaborate he stated, No water or dinner. Pt reports that he has been staying with his DIL Michaela and that his son Shane cannot visit him there because the health care manager said he couldn't come. SW clarified that pt is referring to a reported restraining order that Michaela has against Shane. Pt's affect congruent with mood. Pt's memory is impaired. Pt cannot recall when he sold his home in [place], reports that it was a year ago where his son Shane has previously reported it was 3 years ago. Pt's speech is normal. Pt denies history of psychiatric hospitalizations or current treatment including psychiatric medications. Pt reports that he is a and served in the [place] war. Pt reports some past PTSD related to service but did not provide specific symptoms. SW asked patient where he would like to discharge to and he reports that he sold his house last year to come up here and he doesn't have any money to pay for a place to stay. SW inquired where the money from the sale of the house went and pt stated, I spent it. I had a good time with it. 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 Pt reports he gets around $900/month through SSI. Pt reports that he gets a check every month and that his son Shane has his debit card. Pt reports that he has three other living adult sons: Gareth Briceno, Juan Manuel, and Jadiel. Pt reports that Gareth Morin and Juan Manuel live in the [facility]. SW will attempt to get their contact information from Shane. SW called pt's son Shane [phone] and left a voicemail requesting a call back to discuss current situation. SW called pt's DIL Michaela [phone] who reported that she was on the way to court and that she would be available at 3pm. Michaela indicated that Shane was also due at this court hearing. SW called pt's HCS Worker, Ginette Skinner [phone] for update on pt's medicaid application. Ginette reported that pt's medicaid application was denied as the pt's family has failed to provide necessary financial documentation regarding the sale of pt's two homes in [place]. Acute care SW reports that pt's family can call the [place] pt's homes were sold and request records of sale. Ginette also reports that Shane indicated that the pt gave him money to start his business but has not provided documentation regarding gift. Ginette reports that pt may incur a penalty period if he gifted his family or friends with money in the last 5 years. JEOVANY called pt's [facility] Financial Worker Radha Schneider [phone] and left a voicemail requesting a call back to discuss pt's application and missing items. JEOVANY called [facility] and was informed that there is an loss prevention investigator assigned to pt: Jamaal Bruner . SW called Jamaal and left a voicemail requesting a call back to discuss case. Plan: SW will await a return call from pt's son, HCS Financial Worker, and APS worker. CHARITY Foster
[2022-05-19 13:21] LABS: Appearance Urine UA CLEAR; Bilirubin Urine UA NEGATIVE (NEGATIVE); Color Urine UA YELLOW; Glucose Urine UA TRACE g/dL (Negative); Ketones Urine UA NEGATIVE (NEGATIVE); Leukocyte Esterase Urine UA TRACE (NEGATIVE); Nitrite Urine UA NEGATIVE (Negative); Occult Blood Urine UA TRACE-LYSED (Negative); Protein Urine UA TRACE (Negative); Specific Gravity Urine UA 1.025 (1.000-1.035); Urobilinogen Urine UA 0.2 E.U./dL (0.2)
[2022-05-19 13:24] LABS: Bacteria Urine None Seen; Culture Indicated Urine Specimen Cultured; RBC Urine 5-10/HPF (0-5/HPF); Squamous Epithelial Cell Urine 1-5 /HPF (0-5/HPF); WBC Urine 5-10/HPF (0-5/HPF)
[2022-05-19 14:04] LABS: Ur Creatinine Normal (Normal); Ur Specific Gravity Normal (Normal); Urine pH Normal (Normal)
[2022-05-19 14:05] LABS: UR Morphine/Opiate cutoff 300 Positive (Negative); Urine Amphetamines Negative (Negative); Urine Barbiturates Negative (Negative); Urine Benzodiazepines Positive (Negative); Urine Cocaine Negative (Negative); Urine MDMA Negative (Negative); Urine Methadone Negative (Negative); Urine Methamphetamines Negative (Negative); Urine Oxycodone Negative (Negative); Urine Phencyclidine Negative (Negative); Urine Tetrahydrocannabinol Positive (Negative); Urine Tricyclic Antidepressant Negative (Negative)
--- NOTE | 2022-05-19 14:26 | PC.NURSE ---
Dr. Conroy was at bedside updating pt on plan of care. Pt tearful, states he wish he wasn't brought back here. Pt requesting to talk to son today, attempts to reach son Sudhakar unsuccessful, pt aware. Pt provided ice water upon request.
--- NOTE | 2022-05-19 14:56 | PC.NURSE ---
Pt alert and oriented. Speech is clear and coherent. Breathing even and unlabored. Moving all extremities freely without difficulty. This nurse did full skin check with Anjali RN present. Skin on upper and lower extremities is pink, warm, dry and blanching. No visible injuries. Redness and slow to judah noticed on pt's sacrum. Skin is warm and dry.Turning pt [id number]
[2022-05-19] MEDS: hydrOXYzine pamoate 25 MG CAPSULE PO (18:39)
[2022-05-19] MEDS: HYDROCODONE/ACET 10/325 TABLET 1 TAB PO (18:39)
[2022-05-19] MEDS: SERTRALINE 50 MG TABLET PO (21:27)
[2022-05-19] MEDS: ATORVASTATIN 20 MG TABLET 10 MG PO (21:28)
--- NOTE | 2022-05-20 01:02 | PC.NURSE ---
Pt declined SCDs. Education given about SCDs. Pt still declines.
--- NOTE | 2022-05-20 01:24 | PC.NURSE ---
Pt now requests for SCDs to be put on. Put on by this RN. While at bedside, this RN noticed floor was wet. Pt reports my jug fell over.
[2022-05-20 06:55] VITALS: O2SAT 98
[2022-05-20 06:56] VITALS: BP 155/73; PULSE 56; RESP 16; O2SAT 99
--- NOTE | 2022-05-20 07:51 | PC.NURSE ---
Pt resting in bed eyes closed. awakens when RN in room. breakfast tray given. pt states he isnt hungry. asking what time it is. states its early im going back to sleep. VS recently done. Will allow pt to sleep at this time.
[2022-05-20] MEDS: LEVOTHYROXINE 150 MCG TABLET PO (09:03)
[2022-05-20] MEDS: CLOPIDOGREL 75 MG TABLET PO (09:03)
[2022-05-20 10:16] VITALS: BP 184/87; PULSE 55; RESP 17; O2SAT 99
[2022-05-20 10:17] VITALS: BP 184/87; PULSE 55; RESP 18; O2SAT 97
[2022-05-20] MEDS: HYDROCODONE/ACET 10/325 TABLET 1 TAB PO ×2 (13:39→18:18)
--- NOTE | 2022-05-20 13:42 | PC.NURSE ---
Patient has used his call lights 3x in the past 15minutes. Patient asks when the social psychologist is going to come see him. I have informed him the social psychologist will be in as soon as she can, and patient sighs but states understanding. Patient just called again and asks Is that a police lieutenant precinct? pointing towards the door. I asked for him to clarify, patient continues to state he thinks he sees a police lieutenant precinct standing outside his door. I assured him there was not a police lieutenant precinct. Patient looked confused but rolled his eyes and said OK.
--- NOTE | 2022-05-20 13:49 | PC.NURSE ---
Pt readjusted in bed. Sitting up and eating cereal. awake alert and oriented x 3 and at time appears to have episodes of hallucinations. States Is that a bug on the chair or is that a police district switchboard operator in here when there was no one else in the room, otherwise mentating appropriately and able to answer simple questions. Pt tearful with this RN in the room--states thank you for being so nice to me and reached out to hold RN's hand.
--- NOTE | 2022-05-20 14:57 | PC.NURSE ---
Pt is alert, talkative to staff, able to verbalize needs. Pt taking po well with rice crispy cereal and milk. Pleasant. No inappropriate/sexual behavior.
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
--- NOTE | 2022-05-20 17:10 | PC.NURSE ---
We tried to have the patient sit up onto their bed for a meal but they refused when we asked three times. We offered them their meal tray for dinner, but they also refused three times. Then, we tried sitting him up for a nutrition shake, but he also refused three times. He insisted that he wasn't hungry and will eat when he has an appetite.
--- NOTE | 2022-05-20 18:03 | PC.NURSE ---
patient alisa even though call light is within reach. Patient wants to speak to son. We called son and put him on the phone with patient.
--- NOTE | 2022-05-20 18:08 | PC.NURSE ---
Noted increased confusion and agitation as evening progressed. Difficult to verbally reassure and reorient.
--- NOTE | 2022-05-20 18:12 | PC.NURSE ---
Patient yelling for help right after I left his room. I helped him call his son Wander on our hospital cell phone and they talked. Initially Patient stated that his son said he wanted nothing to do with him. I leave patient with his call light and within a minute he yells again for help. I return to see what he needs and he is yelling for the blonde haired girl that was just with you in the room. I tell patient I am not sure who he is referring to. Patient then states his son is on his way RIGHT NOW to visit him. I tried to confirm with the patient and he started to yell at me insisting that his son IS COMING now. call light within reach, patient continues to yell hello and help
[2022-05-20] MEDS: hydrOXYzine pamoate 25 MG CAPSULE PO (18:18)
--- NOTE | 2022-05-20 18:45 | PC.NURSE ---
Pt asking for his son Sudhakar. Sudhakar came to visit and allowed in with curtain open. I overheard son calling pt an asshole and raised his voice at him for causing all this trouble. Sudhakar's body language was leaning forward and pointing aggressively at his father. I opened the sliding door and further heard Sudhakar's loud and aggressive tone toward his father. I told Sudhakar to leave; that he could not be verbally aggressive / abusive with his father in this place. He looked at his father and yelled See??? See??? and left the department. CHARITY, Dr. Kulkarni and Primary RN made aware.
--- NOTE | 2022-05-20 19:10 | PC.NURSE ---
Pt is tearful. Pt states I want a home. Tissues provided. Verbal reassurance by this RN provided. Curtain is open. Frequent checks by this RN.
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
[2022-05-20] MEDS: SERTRALINE 50 MG TABLET PO (21:44)
[2022-05-20] MEDS: ATORVASTATIN 20 MG TABLET 10 MG PO (21:44)
[2022-05-20] MEDS: ALPRAZolam 0.5 MG TABLET PO (23:02)
[2022-05-21 00:17] VITALS: O2SAT 95
[2022-05-21 00:18] VITALS: BP 165/82; PULSE 51; O2SAT 98
[2022-05-21 00:19] VITALS: BP 165/82; PULSE 58; RESP 18; TEMP 36.7; O2SAT 98
--- NOTE | 2022-05-21 06:38 | PC.NURSE ---
Pt has slept most of the night, using call light and making needs known while awake. Pt using the urinal to void.
--- NOTE | 2022-05-21 08:14 | CM.SWNOTE ---
Addendum entered by CHARITY Yadav 05/21/22 09:00: ADD: Placed following calls based on the recommendation from Alice Givens, Quality and Risk: Placed call to mike Cotter P# [phone], this was an automated VM and there was no way to leave a message. Attempted call to Justino Lombardi P#[phone], this is a contact listed as residing at [address] [place] [address], [place]. This number has been disconnected. JW Addendum entered by CHARITY Yadav 05/21/22 08:24: ADD: TIANNA w/Jamaal, APS at 0815 (Ph. # [phone]) to discuss case and ask that he be in close contact w/ [facility] financial worker to determine next steps in process to secure CHETAN. JW Original Note: INSTRUCTIONAL TECHNOLOGY COORDINATOR Note-Placement Efforts Reviewed notes. Placed call to mike Duvall to inquire about getting all 4 sons on the phone/in person for a family conferences to discuss their father Jadiel very agitated, belligerent, cussing. Refuses to participate and states none of his brothers will either JW
--- NOTE | 2022-05-21 09:59 | PC.NURSE ---
shampoo to hair . comb. pt is sitting in chair.
--- NOTE | 2022-05-21 10:02 | PC.NURSE ---
pt used call light for change of brief. patient got up to chair, incontinent care provider and new brief placed on patient. bed bath provided, teeth brushed, hair washed and brushed. clean gown placed on patient. new linens placed on bed. patient educated on being up in chair for 1 hour then he may go back to bed. pt given breakfast and morning medications.
[2022-05-21 10:17] LABS: COVID19 -Nasal RAPID POSITIVE (Negative)
[2022-05-21 10:29] LABS: Add Manual Diff / Slide Review NO; Basophils Absolute Auto 100 /uL (0-100); Basophils Percent Auto 1.9 % (0-2); Eosinophils Absolute Auto 400 /uL (0-450); Eosinophils Percent Auto 9.3 % (2-4); Hematocrit 35.1 % (41-53); Hemoglobin 11.9 g/dL (13.5-17.5); Lymphocytes Absolute Auto 1300 /uL (1100-4500); Lymphocytes Percent Auto 29.1 % (25-40); Mean Corpuscular Hemoglobin 30.7 PG (26-34); Mean Corpuscular Volume 90.3 fL (80-100); Monocytes Absolute Auto 400 /uL (0-900); Monocytes Percent Auto 8.1 % (3-14); Neutrophils Absolute Auto 2300 /uL (1500-7000); Neutrophils Percent Auto 51.6 % (50-75); Platelet Count 288 X10^3/uL (150-400); Red Blood Cell Count 3.89 X10^6/uL (4.5-5.9); Red Cell Distribution Width 14.4 % (11.6-14.8); White Blood Cell Count 4.4 X10^3/uL (4.5-11.0)
[2022-05-21 10:44] LABS: Blood Urea Nitrogen 18 mg/dL (9-20); Calcium 9.6 mg/dL (8.4-10.2); Carbon Dioxide 29 mmol/L (22-32); Chloride 103 mmol/L (98-107); Estimated Glomerular Filt Rate > 60 mL/min (>60); Glucose 94 mg/dL (80-110); HEMOLYSIS < 15 (0-50); Potassium 3.8 mmol/L (3.4-5.1); Sodium 140 mmol/L (137-145)
--- NOTE | 2022-05-21 10:50 | DIET.CONS2 ---
Dietary Inpatient Consultation Note Admission Date: RD f/u for malnourished male boarding in ED. Per nursing, pt not eating meal trays, only consuming rice crispie cereal with milk and sugar. Kitchen sending ONS tid, if pt does not consume, will attempt protein milkshake as pt enjoys milk in cereal. Diet: 05/19/22 Breakfast General (Regular) Diet Diet Modifications: easy chew, van enlive tid, no fish or egg salad Safety Tray needed?: No Nutrition Percent Meal Consumed 1 box of rice crispies 05/20/22 15:23 Percent Meal Consumed 25% 05/19/22 13:06 Electronically Signed by: Judy Mukherjee 05/21/22 10:50 Clinical Diet[address] [address]
[2022-05-21] MEDS: HYDROCODONE/ACET 10/325 TABLET 1 TAB PO (11:06)
[2022-05-21] MEDS: CLOPIDOGREL 75 MG TABLET PO (11:07)
[2022-05-21] MEDS: hydrOXYzine pamoate 25 MG CAPSULE PO (11:07)
[2022-05-21] MEDS: LEVOTHYROXINE 150 MCG TABLET PO (11:07)
[2022-05-21 12:10] VITALS: BP 147/72; PULSE 54; O2SAT 99
[2022-05-21 12:11] VITALS: BP 147/72; PULSE 55; RESP 16; TEMP 36.9; O2SAT 100
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
--- NOTE | 2022-05-21 16:55 | PC.NURSE ---
late entry 1100 pt moved back into bed from chair after finishing breakfast. 1200, vs taken. pt states he does not need anything. 1400 pt is sleeping in bed.
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
--- NOTE | 2022-05-21 18:05 | PC.NURSE ---
pt used call light and asked for food. states he has not eaten all day. reminded pt that he did have breakfast while sitting up in the chair this morning. pt states he does not remember eating this morning. pt states he only eats rice krispies cereal with sugar. pt is visibly upset, crying states his son just told him they are investigating him for stealing money. 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 reassured that the investigation is just apart of his stay and we are working on finding him a home since he got kicked out of his son's place after from his . patient refused food tray and ate two bowls of rice krispies for dinner. pt asked about balanced diet and states he only wants rice krispies.
--- NOTE | 2022-05-21 19:16 | PC.NURSE ---
Report received - assumed care of pt at this time - resting quietly in NAD - no needs voiced - PWD - respirations equal and unlabored bilaterally
--- NOTE | 2022-05-21 20:15 | PC.NURSE ---
Resting quietly in darkened room with eyes closed - NAD - no needs voiced - PWD with respirations equal and unlabored bilaterally
--- NOTE | 2022-05-21 21:15 | PC.NURSE ---
No changes in pt status at this time
--- NOTE | 2022-05-21 22:15 | PC.NURSE ---
Continues to rest quietly in bed with eyes closed - no needs voiced
--- NOTE | 2022-05-21 23:15 | PC.NURSE ---
Urinal given at this time by EDUCATIONAL TECHNOLOGY COORDINATOR
--- NOTE | 2022-05-22 | PC.NURSE ---
on call pharmacy technician darion asking for medication for the evening - would like yenifer Marr MD notified
[2022-05-22] MEDS: hydrOXYzine pamoate 25 MG CAPSULE PO ×2 (00:15→11:57)
[2022-05-22] MEDS: SERTRALINE 50 MG TABLET PO ×2 (00:15→20:32)
--- NOTE | 2022-05-22 00:15 | PC.NURSE ---
medicated at this time by DONN Guthrie
[2022-05-22] MEDS: ALPRAZolam 0.5 MG TABLET PO (00:16)
--- NOTE | 2022-05-22 01:15 | PC.NURSE ---
Resting quietly in NAD - no needs voiced - PWD with respirations equal and unlabored bilaterally
--- NOTE | 2022-05-22 02:15 | PC.NURSE ---
No changes in pt status
--- NOTE | 2022-05-22 03:15 | PC.NURSE ---
No changes in pt status
--- NOTE | 2022-05-22 04:15 | PC.NURSE ---
No changes in pt status or assessment
--- NOTE | 2022-05-22 05:15 | PC.NURSE ---
No changes in pt status at this time
--- NOTE | 2022-05-22 06:15 | PC.NURSE ---
Continues to rest easily without concern - No needs voiced - PWD - respirations equal and unlabored bilaterally
--- NOTE | 2022-05-22 07:26 | PC.NURSE ---
Report to dayshift RN team - care relinquished at this time
[2022-05-22] MEDS: LEVOTHYROXINE 150 MCG TABLET PO (11:51)
[2022-05-22] MEDS: CLOPIDOGREL 75 MG TABLET PO (11:51)
[2022-05-22] MEDS: HYDROCODONE/ACET 10/325 TABLET 1 TAB PO (11:56)
[2022-05-22 12:02] VITALS: PULSE 52; O2SAT 99
[2022-05-22 12:06] VITALS: BP 159/75; PULSE 52; RESP 18; TEMP 37.2; O2SAT 99
--- NOTE | 2022-05-22 12:16 | PC.NURSE ---
Pt alert and oriented to self, place, and situation. Breathing even and unlabored. Skin pink, warm, and dry with no edema noted on extremeties. Bilateral radial pulses and dorsalis pedis pulses palpable and normal. Strength normal for patient, +5 ROM, equal bilaterally. Pt educated on plan of care including turning Q2 hours, pt states I'll turn after breakfast. Pt sitting up in bed eating cereal independently, provided water.
--- NOTE | 2022-05-22 13:12 | PC.NURSE ---
Pt provided 2 more boxes of rice krispies cereal upon request, declined prepared lunch meal, pt consumed both boxes. Finished tray removed from room.
--- NOTE | 2022-05-22 14:20 | CM.SWNOTE ---
Addendum entered by CHARITY Foster 05/22/22 18:59: JEOVANY called pt's son Sudhakar again and informed him that he can come to the ED to pick pt up any time this evening, as we are open 24 hours. JEOVANY again emphasized importance of patient's release from ED. CHARITY Foster Addendum entered by CHARITY Foster 05/22/22 18:47: SW also attempted to reach [facility] x3. JEOVANY left two voicemails requesting a call back to discuss current situation. CHARITY Foster Addendum entered by CHARITY Foster 05/22/22 18:45: JEOVANY talked to Sudhakar and he reports that he still hasn't been able to reach [facility]. Sudhakar reports that he needs to talk to [facility] before picking pt up because he needs to get permission to return home. JEOVANY explained that we can schedule an ambulance to pick pt up and bring him directly home. Sudhakar said that transportation was not the issue but that he needs to get back into the house and make sure it is suitable to pt to return. Sudhakar reports that he needs to make sure the house is not in disarray and that pt has clean bedding. JEOVANY emphasized that pt is ready for discharge and Sudhakar reports that he is still trying to get ahold of [facility]. Sudhakar reports that he will pick patient up by tomorrow morning at the latest. CHARITY Foster Original Note: ED SW Note Pt is a 72-year-old male former smoker with history of dementia, failure to thrive, prior stroke, lives at home, essentially unable to ambulate and requires significant assistance presents with reported suicidal ideation and homicidal ideation. Pt has [employer]vantage. Pt's son Sudhakar is the reported DPOA. JEOVANY received call from APS traffic sign erection supervisor, Blaine . Blaine is the traffic sign erection supervisor for pt's APS rent and housing investigator, Demond. Blaine reports that he believes that the protection order preventing pt's son Sudhakar from returning home is still in place. Blaine reports that Sudhakar is working on getting financial documentation to [facility] so that Demond can in turn send it to [facility] to expedite the process of pt being approved for [employer] Medicaid. JEOVANY called pt's son Sudhakar and received update that he plans to pick his father up this evening after work. Sudhakar reports that there was a resolution in court and he is discussing with Michaela if he can return home with the pt. Sudhakar reports that he will attempt to go to the bank before it closes to get copies of bank statements that are needed for the Medicaid application. JEOVANY informed Sudhakar that sw can fax documents directly to [facility] and [facility] if pt would like to drop them off at the hospital. Plan: Pt's son Sudhakar reports that he plans to pick his father up from the hospital today. JEOVANY will follow up with Sudhakar at 1700 if he has not already come to pickle maker patient. CHARITY Foster
--- NOTE | 2022-05-22 14:44 | PC.NURSE ---
This nurse and Anjali RN performed a full head to toe assessment. Skin is slow to judah on sacrum, skin is intact, [id number] Allevyn dressing applied as a preventative measure. No other skin issues noted anywhere else. Pt turned to the left side, pillows offloading heels and a pillow placed between the knees. Pt states he is comfortable, warm blankets applied per pt request.
[2022-05-22] MEDS: ATORVASTATIN 20 MG TABLET 10 MG PO (20:31)
--- NOTE | 2022-05-22 20:43 | PC.NURSE ---
Pt refused to turn to left side, pt repositioned to supine position. Heels offloaded with a pillow. Offered pt his dinner tray and pt declined stating I am on a hunger strike. Offered pt snacks, pt declined. Placed fresh water and meal tray on bedside table in patients reach.
--- NOTE | 2022-05-22 22:36 | PC.NURSE ---
This nurse entered pt's room and informed pt that I am there to reposition him. Pt refused and any repositioning. This nurse educated on the importance of repositioning to prevent skin breakdown, pt still refused.
[2022-05-23 01:51] VITALS: BP 175/70; PULSE 58; RESP 14; O2SAT 99
[2022-05-23] MEDS: LEVOTHYROXINE 150 MCG TABLET PO (08:18)
[2022-05-23 09:27] VITALS: BP 138/70; PULSE 61; RESP 14; O2SAT 97
[2022-05-23] MEDS: CLOPIDOGREL 75 MG TABLET PO (09:53)
--- NOTE | 2022-05-23 12:43 | PC.NURSE ---
Pt with eyes closed, breathing even and unlabored.
--- NOTE | 2022-05-23 13:27 | CM.SWNOTE ---
ED SW Note JEOVANY called pt's son Sudhakar, who reported that he was on his way to the hospital to pecan picker his father. When Sudhakar arrived, he provided this SW with financial statements that have been requested by 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 JEOVANY made a copy of those documents and gave Sudhakar the original. SW called pt's APS worker Demond, as well as his supervisor phosphorus processing Blaine and left voicemails providing an update on situation. JEOVANY called pt's [employer] financial worker Radha and left a voicemail informing her that sw has financial documents and can fax or scan them to her yosvany. Plan: Pt will discharge home with his father. SW will send financial documents to [facility] and APS when she receives contact information. CHARITY Foster
== END 2022-05-23 13:19 | disposition home or self-care (01) ==
PROVIDERS: Emergency Medicine; Emergency Provider Emergency Medicine; PCP Internal Medicine
DX: R62.7 Adult failure to thrive (principal); Z68.1 Body mass index [BMI] 19.9 or less, adult; F03.90 Unspecified dementia, unspecified severity, without behavioral disturbance, psychotic disturbance, mood disturbance, and anxiety; R53.1 Weakness; R45.851 Suicidal ideations; U07.1 COVID-19
CPT/HCPCS: 80048; 80053; 80305; 80320; 81001; 84439; 84443; 85025; 87086; 87635; 93005; 93010; 97162; 99284; C9803

== ENCOUNTER 2022-10-21 20:12 | Emergency (ER) | payer OTHER, SELFPAY ==
[2021-09-20 11:21] VITALS: BMI 19.8
[2022-10-21] VITALS (8 sets, daily range): BP systolic 159–194; BP diastolic 75–89; PULSE 53–72; RESP 14–25; TEMP 36.8; O2SAT 99–100; BMI 18.7
--- NOTE | 2022-10-21 20:39 | DI.RAD.S_ITS ---
PROCEDURE: XR CHEST 1V INDICATIONS: chest pain TECHNIQUE: One view of the chest was acquired. COMPARISON: [facility], CR, XR CHEST 1V, 05/08/2022, 19:44. [facility], CR, XR CHEST 1V, 02/25/2022, 14:46. FINDINGS: Surgical changes and devices: None. Lungs and pleura: Lungs are clear. No pleural effusions or pneumothorax. Mediastinum: Mediastinal contours appear unchanged. Heart size is within normal limits. Bones and chest wall: No suspicious bony lesions. Overlying soft tissues appear unremarkable. IMPRESSION: No acute cardiopulmonary abnormality. Dictated by: Fox Mazariegos M.D. on 10/21/2022 at 21:50 Approved by: Fox Mazariegos M.D. on 10/21/2022 at 21:51
--- NOTE | 2022-10-21 20:48 | DI.CT.S_ITS ---
PROCEDURE: CT HEAD/BRAIN WO CON INDICATIONS: fall with confusion TECHNIQUE: Noncontrast 4.5 mm thick angled axial sections acquired from the foramen magnum to the vertex, with coronal and sagittal reformats. For radiation dose reduction, the following was used: automated exposure control, adjustment of mA and/or kV according to patient size. COMPARISON: [facility], CT, CT HEAD/BRAIN WO CON, 09/21/2021, 18:43. [facility], CT, CT HEAD/BRAIN WO CON, 02/25/2022, 14:47. FINDINGS: Image quality: Excellent. CSF spaces: Basal cisterns are patent. No extra-axial fluid collections. Ventricles are normal in size and shape. Brain: No midline shift. No intracranial masses or hemorrhage. Hylton-white matter interface is normal. Skull and face: Calvarium and visualized facial bones are intact, without suspicious lesions. Sinuses: Opacification of the left maxillary sinus. Mucosal thickening in the sphenoid sinuses and left frontal sinus. Mastoids are clear. IMPRESSION: No acute intracranial abnormality. Chronic sinusitis. Dictated by: Fox Mazariegos M.D. on 10/21/2022 at 21:22 Approved by: Fox Mazariegos M.D. on 10/21/2022 at 21:25
--- NOTE | 2022-10-21 20:48 | DI.CT.S_ITS ---
PROCEDURE: CT CERVICAL SPINE WO CON INDICATIONS: fall with confusion TECHNIQUE: Noncontrast 3 mm thick sections acquired from the skull base to the T4 level. Sagittal and coronal reformats were then constructed. For radiation dose reduction, the following was used: automated exposure control, adjustment of mA and/or kV according to patient size. COMPARISON: None. FINDINGS: Image quality: Excellent. Bones: No fractures or dislocations. Moderate degenerative change in the cervical spine. Visualized superior ribs are intact. Soft tissues: Prevertebral soft tissues are normal in thickness. No paravertebral hematomas. No apical pneumothoraces. Mucosal thickening at the sphenoid sinus. IMPRESSION: No acute osseous abnormality. Dictated by: Fox Mazariegos M.D. on 10/21/2022 at 21:51 Approved by: Fox Mazariegos M.D. on 10/21/2022 at 21:56
[2022-10-21 21:09] LABS: Add Manual Diff / Slide Review NO; Basophils Absolute Auto 100 /uL (0-100); Basophils Percent Auto 1.4 % (0-2); Eosinophils Absolute Auto 800 /uL (0-450); Eosinophils Percent Auto 10.7 % (2-4); Hematocrit 32.4 % (41-53); Hemoglobin 10.8 g/dL (13.5-17.5); Lymphocytes Absolute Auto 1700 /uL (1100-4500); Lymphocytes Percent Auto 23.2 % (25-40); Mean Corpuscular HGB Conc 33.3 % (30-36); Mean Corpuscular Hemoglobin 29.7 PG (26-34); Monocytes Absolute Auto 800 /uL (0-900); Monocytes Percent Auto 11.3 % (3-14); Neutrophils Absolute Auto 3900 /uL (1500-7000); Neutrophils Percent Auto 53.4 % (50-75); Platelet Count 337 X10^3/uL (150-400); Red Blood Cell Count 3.64 X10^6/uL (4.5-5.9); Red Cell Distribution Width 15.1 % (11.6-14.8); White Blood Cell Count 7.2 X10^3/uL (4.5-11.0)
[2022-10-21 21:15] LABS: INR 0.9 (0.9-1.3); Prothrombin Time 10.7 SECONDS (10.1-12.7)
[2022-10-21 21:17] LABS: PTT Partial Thromboplastin Tim 30 SECONDS (26-36)
[2022-10-21 21:20] LABS: Ictotest Urine Negative (Negative)
[2022-10-21 21:31] LABS: Amorphous Sediment Urine 1+; Bacteria Urine Occasional (0-1); RBC Urine 10-30/HPF (0-5/HPF); Squamous Epithelial Cell Urine 0-1 /HPF (0-5/HPF); WBC Urine 1-5/HPF (0-5/HPF)
[2022-10-21 21:43] LABS: Albumin 3.9 g/dL (3.5-5.0); Albumin Globulin Ratio 1.1 (1.0-2.8); BUN Creatinine Ratio 26.4 (6-22); Blood Urea Nitrogen 24 mg/dL (9-20); Carbon Dioxide 31 mmol/L (22-32); Estimated Glomerular Filt Rate > 60 mL/min (>60); Globulin 3.7 g/dL (1.7-4.1); Total Protein 7.6 g/dL (6.3-8.2)
[2022-10-21 21:47] LABS: Alanine Aminotransferase 29 IU/L (<50); Alkaline Phosphatase 265 U/L (38-126); Aspartate Aminotransferase 38 IU/L (17-59); Bilirubin Total 0.4 mg/dL (0.2-1.3); Calcium 9.7 mg/dL (8.4-10.2); Chloride 105 mmol/L (98-107); Creatine Kinase 44 U/L (55-170); Glucose 129 mg/dL (80-110); HEMOLYSIS < 15 (0-50); Lipase 65 U/L (23-300); Magnesium 2.3 mg/dL (1.6-2.3); Potassium 3.9 mmol/L (3.4-5.1); Sodium 142 mmol/L (137-145)
[2022-10-21 21:59] LABS: Troponin I < 0.012 ng/mL (0.01-0.034)
[2022-10-21 22:04] LABS: COVID19 -Nasal RAPID Negative (Negative)
--- NOTE | 2022-10-21 22:06 | ED.FALL ---
HPI - Fall <Abdon Conroy DO - Last Filed: 10/24/22 07:19> General Chief Complaint: Fall Stated Complaint: disoriented, fall with injuries Time Seen by Provider: 10/21/22 20:17 Source: patient and family Mode of arrival: Wheelchair History of Present Illness HPI Narrative: Patient is a 72-year-old male. Reported history of dementia/Alzheimer's disease. Is also reported to be bed-bound most of the time. Has not on anticoagulation. Was brought in for evaluation of increased confusion and potential fall. Patient states when I evaluated him that he has no symptoms. There was no family at the bedside when I evaluated him. He was brought to the emergency department by family. He states that he does remember falling this morning. He denies any specific injury. He has no specific symptoms. There was some concern from the family about a urinary tract infection. Patient denies any urinary symptoms. Related Data Home Medications Medication Instructions Recorded Confirmed levothyroxine 125 mcg tablet 150 mcg PO DAILY thyroid 09/03/21 10/22/22 sertraline 50 mg tablet 50 mg PO DAILY depression 09/03/21 10/22/22 hydroxyzine HCl 25 mg tablet 25 mg PO QID PRN Itching 05/10/22 05/18/22 lovastatin 40 mg tablet 40 mg PO QPM 05/18/22 05/18/22 metoprolol succinate 25 mg 12.5 mg PO DAILY 10/22/22 10/22/22 tablet,extended release 24 hr Previous Rx's Medication Instructions Recorded clopidogrel 75 mg tablet 75 mg PO DAILY #30 tabs 09/24/21 hydrocodone 10 mg-acetaminophen 1 tab PO Q4HR PRN Pain, Moderate 09/24/21 325 mg tablet (4-6) #20 tabs meclizine 12.5 mg tablet 25 mg PO Q6HR PRN Vertigo #15 tabs 09/24/21 sulfamethoxazole 800 1 tab PO BID 7 days #14 tabs 10/23/22 mg-trimethoprim 160 mg tablet (Bactrim DS) Allergies Allergy/AdvReac Type Severity Reaction Status Date / Time amitriptyline [From Elavil] Allergy Unknown Verified 05/19/22 11:34 Review of Systems <DO Tejinder Hansen Last Filed: 10/24/22 07:19> Constitutional Comments: Denies headache Cardiovascular Comments: Patient denies chest pain Respiratory Comments: Denies shortness of breath Gastrointestinal Comments: Denies abdominal pain Musculoskeletal Comments: Denies any joint pain Hematologic/Lymphatic On Anticoagulants: No Patient History <Abdon Conroy DO - Last Filed: 10/24/22 07:19> Medical History Cerebrovascular accident Chronic GERD Dementia Hyperlipidemia Hypertension Social History household members: children Smoking Status: Former smoker alcohol intake: current Smoking Status: Former smoker tobacco type: cigarettes alcohol intake frequency: holidays/special occasions only Substance Use Type: marijuana Exam <DO Tejinder Hansen Last Filed: 10/24/22 07:19> Initial Vital Signs Initial Vital Signs: Vital Signs Temperature 98.3 F 10/21/22 20:26 Pulse Rate 60 10/21/22 20:26 Respiratory Rate 14 10/21/22 20:26 Blood Pressure 159/77 H 10/21/22 20:26 Pulse Oximetry 99 10/21/22 20:26 Oxygen Delivery Method Room Air 10/21/22 20:26 Const General: cooperative, comfortable and No ill appearing HENMT Head: normal to inspection and normocephalic Resp Effort & Inspection: normal respiratory effort Auscultation: clear to auscultation bilaterally Cardio Rate: regular rate Rhythm: regular rhythm GI Inspection: normal to inspection Neuro General: patient alert, patient awake and moves all extremities Other: Oriented to person and place and does seem to understand why he is here. He does not know what year it is. Extrem Other: No gross deformities. <Lanre Whyte, DO - Last Filed: 10/23/22 18:50> Initial Vital Signs Initial Vital Signs: Vital Signs Temperature 98.3 F 10/21/22 20:26 Pulse Rate 60 10/21/22 20:26 Respiratory Rate 14 10/21/22 20:26 Blood Pressure 159/77 H 10/21/22 20:26 Pulse Oximetry 99 10/21/22 20:26 Oxygen Delivery Method Room Air 10/21/22 20:26 <Mayra Matta, DO - Last Filed: 10/24/22 02:27> Initial Vital Signs Initial Vital Signs: Vital Signs Temperature 98.3 F 10/21/22 20:26 Pulse Rate 60 10/21/22 20:26 Respiratory Rate 14 10/21/22 20:26 Blood Pressure 159/77 H 10/21/22 20:26 Pulse Oximetry 99 10/21/22 20:26 Oxygen Delivery Method Room Air 10/21/22 20:26 Course <Abdon Conroy, DO - Last Filed: 10/24/22 07:19> Orders Ordered: Discontinued Medications Hydrocodone Bitart/Acetaminophen (Hydrocodone/Acet 5/325 Tablet) 2 tab PO NOW ONE Stop: 10/22/22 14:57 Last Admin: 10/22/22 15:02 Dose: 2 tab Documented By: PRINCESS Hydrocodone Bitart/Acetaminophen (Hydrocodone/Acet 5/325 Tablet) 2 tab PO NOW ONE Stop: 10/22/22 21:56 Last Admin: 10/23/22 07:30 Dose: Not Given Documented By: JAD Clopidogrel Bisulfate (Clopidogrel 75 Mg Tablet) 75 mg PO NOW ONE Stop: 10/22/22 07:20 Last Admin: 10/22/22 07:59 Dose: 75 mg Documented By: HERMES Diphenhydramine HCl (Diphenhydramine 25 Mg Tablet) 25 mg PO NOW ONE Stop: 10/22/22 01:48 Last Admin: 10/22/22 01:57 Dose: 25 mg Documented By: MARLYN Haloperidol (Haloperidol 5 Mg Tablet) 2 mg PO NOW ONE Stop: 10/23/22 12:45 Last Admin: 10/23/22 13:00 Dose: 2 mg Documented By: JAD Levothyroxine Sodium (Levothyroxine 75 Mcg Tablet) 150 mcg PO DAILY@0600 NAYELY Last Admin: 10/23/22 09:00 Dose: 150 mcg Documented By: Admin: 10/22/22 07:59 Dose: 150 mcg Documented By: HERMES Metoprolol Succinate (Metoprolol Er 25 Mg Tablet) 25 mg PO NOW ONE Stop: 10/22/22 00:09 Last Admin: 10/22/22 00:18 Dose: 25 mg Documented By: MARLYN Metoprolol Succinate (Metoprolol Er 25 Mg Tablet) 25 mg PO NOW ONE Stop: 10/22/22 17:24 Last Admin: 10/22/22 17:33 Dose: 25 mg Documented By: YEN Metoprolol Succinate (Metoprolol Er 25 Mg Tablet) 25 mg PO NOW ONE Stop: 10/23/22 12:45 Last Admin: 10/23/22 12:57 Dose: 25 mg Documented By: JAD Quetiapine Fumarate (Quetiapine 25 Mg Tablet) 50 mg PO NOW ONE Stop: 10/23/22 09:30 Last Admin: 10/23/22 09:43 Dose: 50 mg Documented By: JAD Sertraline HCl (Sertraline 50 Mg Tablet) 50 mg PO BEDTIME ONE Stop: 10/22/22 17:25 Last Admin: 10/22/22 17:33 Dose: 50 mg Documented By: YEN Trimethoprim/Sulfamethoxazole (Trimeth/Sulfa 160/800 (Ds) Tablet) 1 tab PO NOW ONE Stop: 10/23/22 15:24 Last Admin: 10/23/22 16:22 Dose: 1 tab Documented By: KIRSTIN Vital Signs Vital signs: Vital Signs - 8 hr 10/23/22 19:26 10/23/22 19:26 10/23/22 20:08 Pulse Rate 75 77 Blood Pressure 177/84 H Pulse Oximetry 97 98 10/23/22 20:09 10/23/22 20:09 Pulse Rate 70 Blood Pressure 167/81 H Pulse Oximetry 99 <Lanre Whyte, DO - Last Filed: 10/23/22 18:50> Orders Ordered: Discontinued Medications Hydrocodone Bitart/Acetaminophen (Hydrocodone/Acet 5/325 Tablet) 2 tab PO NOW ONE Stop: 10/22/22 14:57 Last Admin: 10/22/22 15:02 Dose: 2 tab Documented By: PRINCESS Hydrocodone Bitart/Acetaminophen (Hydrocodone/Acet 5/325 Tablet) 2 tab PO NOW ONE Stop: 10/22/22 21:56 Last Admin: 10/23/22 07:30 Dose: Not Given Documented By: JAD Clopidogrel Bisulfate (Clopidogrel 75 Mg Tablet) 75 mg PO NOW ONE Stop: 10/22/22 07:20 Last Admin: 10/22/22 07:59 Dose: 75 mg Documented By: HERMES Diphenhydramine HCl (Diphenhydramine 25 Mg Tablet) 25 mg PO NOW ONE Stop: 10/22/22 01:48 Last Admin: 10/22/22 01:57 Dose: 25 mg Documented By: MARLYN Haloperidol (Haloperidol 5 Mg Tablet) 2 mg PO NOW ONE Stop: 10/23/22 12:45 Last Admin: 10/23/22 13:00 Dose: 2 mg Documented By: JAD Levothyroxine Sodium (Levothyroxine 75 Mcg Tablet) 150 mcg PO DAILY@0600 NAYELY Last Admin: 10/23/22 09:00 Dose: 150 mcg Documented By: Admin: 10/22/22 07:59 Dose: 150 mcg Documented By: HERMES Metoprolol Succinate (Metoprolol Er 25 Mg Tablet) 25 mg PO NOW ONE Stop: 10/22/22 00:09 Last Admin: 10/22/22 00:18 Dose: 25 mg Documented By: MARLYN Metoprolol Succinate (Metoprolol Er 25 Mg Tablet) 25 mg PO NOW ONE Stop: 10/22/22 17:24 Last Admin: 10/22/22 17:33 Dose: 25 mg Documented By: YEN Metoprolol Succinate (Metoprolol Er 25 Mg Tablet) 25 mg PO NOW ONE Stop: 10/23/22 12:45 Last Admin: 10/23/22 12:57 Dose: 25 mg Documented By: JAD Quetiapine Fumarate (Quetiapine 25 Mg Tablet) 50 mg PO NOW ONE Stop: 10/23/22 09:30 Last Admin: 10/23/22 09:43 Dose: 50 mg Documented By: JAD Sertraline HCl (Sertraline 50 Mg Tablet) 50 mg PO BEDTIME ONE Stop: 10/22/22 17:25 Last Admin: 10/22/22 17:33 Dose: 50 mg Documented By: YEN Trimethoprim/Sulfamethoxazole (Trimeth/Sulfa 160/800 (Ds) Tablet) 1 tab PO NOW ONE Stop: 10/23/22 15:24 Last Admin: 10/23/22 16:22 Dose: 1 tab Documented By: KIRSTIN Vital Signs Vital signs: Vital Signs - 8 hr 10/23/22 19:26 10/23/22 19:26 10/23/22 20:08 Pulse Rate 75 77 Blood Pressure 177/84 H Pulse Oximetry 97 98 10/23/22 20:09 10/23/22 20:09 Pulse Rate 70 Blood Pressure 167/81 H Pulse Oximetry 99 <Mayra Matta DO - Last Filed: 10/24/22 02:27> Orders Ordered: Discontinued Medications Hydrocodone Bitart/Acetaminophen (Hydrocodone/Acet 5/325 Tablet) 2 tab PO NOW ONE Stop: 10/22/22 14:57 Last Admin: 10/22/22 15:02 Dose: 2 tab Documented By: PRINCESS Hydrocodone Bitart/Acetaminophen (Hydrocodone/Acet 5/325 Tablet) 2 tab PO NOW ONE Stop: 10/22/22 21:56 Last Admin: 10/23/22 07:30 Dose: Not Given Documented By: JAD Clopidogrel Bisulfate (Clopidogrel 75 Mg Tablet) 75 mg PO NOW ONE Stop: 10/22/22 07:20 Last Admin: 10/22/22 07:59 Dose: 75 mg Documented By: HERMES Diphenhydramine HCl (Diphenhydramine 25 Mg Tablet) 25 mg PO NOW ONE Stop: 10/22/22 01:48 Last Admin: 10/22/22 01:57 Dose: 25 mg Documented By: MARLYN Haloperidol (Haloperidol 5 Mg Tablet) 2 mg PO NOW ONE Stop: 10/23/22 12:45 Last Admin: 10/23/22 13:00 Dose: 2 mg Documented By: JAD Levothyroxine Sodium (Levothyroxine 75 Mcg Tablet) 150 mcg PO DAILY@0600 NAYELY Last Admin: 10/23/22 09:00 Dose: 150 mcg Documented By: Admin: 10/22/22 07:59 Dose: 150 mcg Documented By: HERMES Metoprolol Succinate (Metoprolol Er 25 Mg Tablet) 25 mg PO NOW ONE Stop: 10/22/22 00:09 Last Admin: 10/22/22 00:18 Dose: 25 mg Documented By: MARLYN Metoprolol Succinate (Metoprolol Er 25 Mg Tablet) 25 mg PO NOW ONE Stop: 10/22/22 17:24 Last Admin: 10/22/22 17:33 Dose: 25 mg Documented By: YEN Metoprolol Succinate (Metoprolol Er 25 Mg Tablet) 25 mg PO NOW ONE Stop: 10/23/22 12:45 Last Admin: 10/23/22 12:57 Dose: 25 mg Documented By: JAD Quetiapine Fumarate (Quetiapine 25 Mg Tablet) 50 mg PO NOW ONE Stop: 10/23/22 09:30 Last Admin: 10/23/22 09:43 Dose: 50 mg Documented By: JAD Sertraline HCl (Sertraline 50 Mg Tablet) 50 mg PO BEDTIME ONE Stop: 10/22/22 17:25 Last Admin: 10/22/22 17:33 Dose: 50 mg Documented By: YEN Trimethoprim/Sulfamethoxazole (Trimeth/Sulfa 160/800 (Ds) Tablet) 1 tab PO NOW ONE Stop: 10/23/22 15:24 Last Admin: 10/23/22 16:22 Dose: 1 tab Documented By: RB Vital Signs Vital signs: Vital Signs - 8 hr 10/23/22 19:26 10/23/22 19:26 10/23/22 20:08 Pulse Rate 75 77 Blood Pressure 177/84 H Pulse Oximetry 97 98 10/23/22 20:09 10/23/22 20:09 Pulse Rate 70 Blood Pressure 167/81 H Pulse Oximetry 99 MDM - Fall <Abdon Conroy DO - Last Filed: 10/24/22 07:19> Lab Data 10/21/22 20:50 10/22/22 07:37 Labs: Lab Results 10/21/22 10/21/22 10/21/22 Range/Units 20:30 20:30 20:50 WBC 7.2 (4.5-11.0) X10^3/uL RBC 3.64 L (4.5-5.9) X10^6/uL Hgb 10.8 L (13.5-17.5) g/dL Hct 32.4 L (41-53) % MCV 89.0 (80-100) fL MCH 29.7 (26-34) PG MCHC 33.3 (30-36) % RDW 15.1 H (11.6-14.8) % Plt Count 337 (150-400) X10^3/uL Neut % (Auto) 53.4 (50-75) % Lymph % (Auto) 23.2 L (25-40) % [place] % (Auto) 11.3 (3-14) % Eos % (Auto) 10.7 H (2-4) % Baso % (Auto) 1.4 (0-2) % Neut # (Auto) 3900 (5635-3775) /uL Lymph # (Auto) 1700 (9215-5274) /uL [place] # (Auto) 800 (0-900) /uL Eos # (Auto) 800 H (0-450) /uL Baso # (Auto) 100 (0-100) /uL PT (10.1-12.7) SECONDS INR (0.9-1.3) APTT (26-36) SECONDS Sodium (137-145) mmol/L Potassium (3.4-5.1) mmol/L Chloride (98-107) mmol/L Carbon Dioxide (22-32) mmol/L BUN (9-20) mg/dL Creatinine (0.66-1.25) mg/dL Estimated GFR (>60) mL/min BUN/Creatinine Ratio (6-22) Glucose (80-110) mg/dL Calcium (8.4-10.2) mg/dL Magnesium (1.6-2.3) mg/dL Total Bilirubin (0.2-1.3) mg/dL AST (17-59) IU/L ALT (<50) IU/L Alkaline Phosphatase (38-126) U/L Total Creatine Kinase (55-170) U/L CK-MB (CK-2) CK-MB (CK-2) Rel Index Troponin I (0.01-0.034) ng/mL Total Protein (6.3-8.2) g/dL Albumin (3.5-5.0) g/dL Globulin (1.7-4.1) g/dL Albumin/Globulin Ratio (1.0-2.8) Lipase (23-300) U/L Urine Color Urine Appearance Urine pH (4.5-8.0) Ur Specific [place] (1.000-1.035) Urine Protein (Negative) Urine Glucose (UA) (Negative) g/dL Urine Ketones (NEGATIVE) Urine Occult Blood (Negative) Urine Nitrate (Negative) Urine Bilirubin (NEGATIVE) Ur Bilirubin Confirm Negative (Negative) Urine Urobilinogen (0.2) E.U./dL Ur Leukocyte Esterase (NEGATIVE) Urine RBC 10-30/hpf H (0-5/HPF) Urine WBC 1-5/hpf (0-5/HPF) Ur Squamous Epith Cells 0-1 /hpf (0-5/HPF) Amorphous Sediment 1+ Urine Bacteria Occasional (0-1) (None) Ur Culture Indicated? SARS-CoV-2 (PCR) (Negative) 10/21/22 10/21/22 10/21/22 Range/Units 20:50 20:50 21:17 WBC (4.5-11.0) X10^3/uL RBC (4.5-5.9) X10^6/uL Hgb (13.5-17.5) g/dL Hct (41-53) % MCV (80-100) fL MCH (26-34) PG MCHC (30-36) % RDW (11.6-14.8) % Plt Count (150-400) X10^3/uL Neut % (Auto) (50-75) % Lymph % (Auto) (25-40) % [place] % (Auto) (3-14) % Eos % (Auto) (2-4) % Baso % (Auto) (0-2) % Neut # (Auto) (8044-8819) /uL Lymph # (Auto) (2706-2767) /uL [place] # (Auto) (0-900) /uL Eos # (Auto) (0-450) /uL Baso # (Auto) (0-100) /uL PT 10.7 (10.1-12.7) SECONDS INR 0.9 (0.9-1.3) APTT 30 (26-36) SECONDS Sodium 142 (137-145) mmol/L Potassium 3.9 (3.4-5.1) mmol/L Chloride 105 (98-107) mmol/L Carbon Dioxide 31 (22-32) mmol/L BUN 24 H (9-20) mg/dL Creatinine 0.91 (0.66-1.25) mg/dL Estimated GFR > 60 (>60) mL/min BUN/Creatinine Ratio 26.4 H (6-22) Glucose 129 H (80-110) mg/dL Calcium 9.7 (8.4-10.2) mg/dL Magnesium 2.3 (1.6-2.3) mg/dL Total Bilirubin 0.4 (0.2-1.3) mg/dL AST 38 (17-59) IU/L ALT 29 (<50) IU/L Alkaline Phosphatase 265 H (38-126) U/L Total Creatine Kinase 44 L (55-170) U/L CK-MB (CK-2) TNP CK-MB (CK-2) Rel Index TNP Troponin I < 0.012 (0.01-0.034) ng/mL Total Protein 7.6 (6.3-8.2) g/dL Albumin 3.9 (3.5-5.0) g/dL Globulin 3.7 (1.7-4.1) g/dL Albumin/Globulin Ratio 1.1 (1.0-2.8) Lipase 65 (23-300) U/L Urine Color Urine Appearance Urine pH (4.5-8.0) Ur Specific [place] (1.000-1.035) Urine Protein (Negative) Urine Glucose (UA) (Negative) g/dL Urine Ketones (NEGATIVE) Urine Occult Blood (Negative) Urine Nitrate (Negative) Urine Bilirubin (NEGATIVE) Ur Bilirubin Confirm (Negative) Urine Urobilinogen (0.2) E.U./dL Ur Leukocyte Esterase (NEGATIVE) Urine RBC (0-5/HPF) Urine WBC (0-5/HPF) Ur Squamous Epith Cells (0-5/HPF) Amorphous Sediment Urine Bacteria (None) Ur Culture Indicated? SARS-CoV-2 (PCR) Negative (Negative) 10/22/22 10/22/22 Range/Units 07:37 12:18 WBC (4.5-11.0) X10^3/uL RBC (4.5-5.9) X10^6/uL Hgb (13.5-17.5) g/dL Hct (41-53) % MCV (80-100) fL MCH (26-34) PG MCHC (30-36) % RDW (11.6-14.8) % Plt Count (150-400) X10^3/uL Neut % (Auto) (50-75) % Lymph % (Auto) (25-40) % [place] % (Auto) (3-14) % Eos % (Auto) (2-4) % Baso % (Auto) (0-2) % Neut # (Auto) (4655-7869) /uL Lymph # (Auto) (2608-6296) /uL [place] # (Auto) (0-900) /uL Eos # (Auto) (0-450) /uL Baso # (Auto) (0-100) /uL PT (10.1-12.7) SECONDS INR (0.9-1.3) APTT (26-36) SECONDS Sodium 140 (137-145) mmol/L Potassium 3.4 (3.4-5.1) mmol/L Chloride 109 H (98-107) mmol/L Carbon Dioxide 27 (22-32) mmol/L BUN 20 (9-20) mg/dL Creatinine 0.75 (0.66-1.25) mg/dL Estimated GFR > 60 (>60) mL/min BUN/Creatinine Ratio 26.7 H (6-22) Glucose 96 (80-110) mg/dL Calcium 9.4 (8.4-10.2) mg/dL Magnesium (1.6-2.3) mg/dL Total Bilirubin 0.2 (0.2-1.3) mg/dL AST 35 (17-59) IU/L ALT 26 (<50) IU/L Alkaline Phosphatase 263 H (38-126) U/L Total Creatine Kinase 78 (55-170) U/L CK-MB (CK-2) TNP CK-MB (CK-2) Rel Index TNP Troponin I < 0.012 (0.01-0.034) ng/mL Total Protein 7.0 (6.3-8.2) g/dL Albumin 3.5 (3.5-5.0) g/dL Globulin 3.5 (1.7-4.1) g/dL Albumin/Globulin Ratio 1.0 (1.0-2.8) Lipase (23-300) U/L Urine Color Red Urine Appearance Cloudy Urine pH 7.0 (4.5-8.0) Ur Specific [place] 1.020 (1.000-1.035) Urine Protein 2+ H (Negative) Urine Glucose (UA) Negative (Negative) g/dL Urine Ketones Negative (NEGATIVE) Urine Occult Blood 3+ H (Negative) Urine Nitrate Negative (Negative) Urine Bilirubin 1+ H (NEGATIVE) Ur Bilirubin Confirm Negative (Negative) Urine Urobilinogen 1.0 (0.2) E.U./dL Ur Leukocyte Esterase Trace H (NEGATIVE) Urine RBC >100/hpf H (0-5/HPF) Urine WBC 1-5/hpf (0-5/HPF) Ur Squamous Epith Cells 0-1 /hpf (0-5/HPF) Amorphous Sediment Urine Bacteria Occasional (0-1) (None) Ur Culture Indicated? Specimen cultured SARS-CoV-2 (PCR) (Negative) Urine Dip Bedside Urine Glucose Negative Bedside Urine Bilirubin + 1 Bedside Urine Ketone - Negative Urine Specific [place] 1.030 Bedside Urine Occult Blood +++ Bedside Urine pH 5.5 Bedside Urine Protein + 30 Bedside Urine Urobilinogen - Negative Bedside Urine Nitrite - Negative Bedside Urine Leukocytes +/- 15 Esterase Imaging Data Chest x-ray: Radiologist's Impression: PROCEDURE:? XR CHEST 1V ? INDICATIONS:? chest pain ? TECHNIQUE:? One view of the chest was acquired.? ? COMPARISON:? [facility], CR, XR CHEST 1V, 05/08/2022, 19:44.? [facility], CR, XR CHEST 1V, 02/25/2022, 14:46. ? FINDINGS:? ? Surgical changes and devices:? None.? ? Lungs and pleura:? Lungs are clear.? No pleural effusions or pneumothorax.? ? Mediastinum:? Mediastinal contours appear unchanged.? Heart size is within normal limits. ? ? Bones and chest wall:? No suspicious bony lesions.? Overlying soft tissues appear unremarkable.? ? IMPRESSION:? No acute cardiopulmonary abnormality. CT - cervical spine: Radiologist's Impression: PROCEDURE:? CT CERVICAL SPINE WO CON ? INDICATIONS:? fall with confusion ? TECHNIQUE:? Noncontrast 3 mm thick sections acquired from the skull base to the T4 level.? Sagittal and coronal reformats were then constructed.? For radiation dose reduction, the following was used:? automated exposure control, adjustment of mA and/or kV according to patient size.? ? COMPARISON:? None. ? FINDINGS:? Image quality:? Excellent.? ? Bones:? No fractures or dislocations.? Moderate degenerative change in the cervical spine.? Visualized superior ribs are intact.? ? Soft tissues:? Prevertebral soft tissues are normal in thickness.? No paravertebral hematomas.? No apical pneumothoraces.? Mucosal thickening at the sphenoid sinus.? ? ? IMPRESSION:? No acute osseous abnormality. CT scan - head: Radiologist's Impression: PROCEDURE:? CT HEAD/BRAIN WO CON ? INDICATIONS:? fall with confusion ? TECHNIQUE:? Noncontrast 4.5 mm thick angled axial sections acquired from the foramen magnum to the vertex, with coronal and sagittal reformats.? For radiation dose reduction, the following was used:? automated exposure control, adjustment of mA and/or kV according to patient size.? ? COMPARISON:? [facility], CT, CT HEAD/BRAIN WO CON, 09/21/2021, 18:43.? [facility], CT, CT HEAD/BRAIN WO CON, 02/25/2022, 14:47. ? FINDINGS:? Image quality:? Excellent.? ? CSF spaces:? Basal cisterns are patent.? No extra-axial fluid collections.? Ventricles are normal in size and shape.? ? Brain:? No midline shift.? No intracranial masses or hemorrhage.? [place]-white matter interface is normal.? ? Skull and face:? Calvarium and visualized facial bones are intact, without suspicious lesions.? ? Sinuses:? Opacification of the left maxillary sinus.? Mucosal thickening in the sphenoid sinuses and left frontal sinus.? Mastoids are clear. ? IMPRESSION:? No acute intracranial abnormality. Chronic sinusitis. ? MDM Narrative Medical decision making narrative: Family was not at bedside for my initial evaluation. Attempted to contact his son at the number provided in the EMR however no one answered. A message was left. Nursing staff attempted multiple times to contact the patient's son to have him come back to the emergency department. Multiple messages were left however no one answered these messages. His workup here in the emergency department has been relatively unremarkable. He was given Benadryl as he was asking for something to help him sleep. He was given his metoprolol which according to his medical record he takes for his blood pressure. Indication for admission to the hospital. Patient stayed multiple hours here in the emergency department due to the lack of the ability to contact family. Care turned over to Dr. Whyte to continue to observe until family can be found and disposition. <Lanre Whyte, DO - Last Filed: 10/23/22 18:50> Lab Data Labs: Lab Results 10/21/22 10/21/22 10/21/22 Range/Units 20:30 20:30 20:50 WBC 7.2 (4.5-11.0) X10^3/uL RBC 3.64 L (4.5-5.9) X10^6/uL Hgb 10.8 L (13.5-17.5) g/dL Hct 32.4 L (41-53) % MCV 89.0 (80-100) fL MCH 29.7 (26-34) PG MCHC 33.3 (30-36) % RDW 15.1 H (11.6-14.8) % Plt Count 337 (150-400) X10^3/uL Neut % (Auto) 53.4 (50-75) % Lymph % (Auto) 23.2 L (25-40) % [place] % (Auto) 11.3 (3-14) % Eos % (Auto) 10.7 H (2-4) % Baso % (Auto) 1.4 (0-2) % Neut # (Auto) 3900 (1577-1858) /uL Lymph # (Auto) 1700 (6819-7679) /uL [place] # (Auto) 800 (0-900) /uL Eos # (Auto) 800 H (0-450) /uL Baso # (Auto) 100 (0-100) /uL PT (10.1-12.7) SECONDS INR (0.9-1.3) APTT (26-36) SECONDS Sodium (137-145) mmol/L Potassium (3.4-5.1) mmol/L Chloride (98-107) mmol/L Carbon Dioxide (22-32) mmol/L BUN (9-20) mg/dL Creatinine (0.66-1.25) mg/dL Estimated GFR (>60) mL/min BUN/Creatinine Ratio (6-22) Glucose (80-110) mg/dL Calcium (8.4-10.2) mg/dL Magnesium (1.6-2.3) mg/dL Total Bilirubin (0.2-1.3) mg/dL AST (17-59) IU/L ALT (<50) IU/L Alkaline Phosphatase (38-126) U/L Total Creatine Kinase (55-170) U/L CK-MB (CK-2) CK-MB (CK-2) Rel Index Troponin I (0.01-0.034) ng/mL Total Protein (6.3-8.2) g/dL Albumin (3.5-5.0) g/dL Globulin (1.7-4.1) g/dL Albumin/Globulin Ratio (1.0-2.8) Lipase (23-300) U/L Urine Color Urine Appearance Urine pH (4.5-8.0) Ur Specific [place] (1.000-1.035) Urine Protein (Negative) Urine Glucose (UA) (Negative) g/dL Urine Ketones (NEGATIVE) Urine Occult Blood (Negative) Urine Nitrate (Negative) Urine Bilirubin (NEGATIVE) Ur Bilirubin Confirm Negative (Negative) Urine Urobilinogen (0.2) E.U./dL Ur Leukocyte Esterase (NEGATIVE) Urine RBC 10-30/hpf H (0-5/HPF) Urine WBC 1-5/hpf (0-5/HPF) Ur Squamous Epith Cells 0-1 /hpf (0-5/HPF) Amorphous Sediment 1+ Urine Bacteria Occasional (0-1) (None) Ur Culture Indicated? SARS-CoV-2 (PCR) (Negative) 10/21/22 10/21/22 10/21/22 Range/Units 20:50 20:50 21:17 WBC (4.5-11.0) X10^3/uL RBC (4.5-5.9) X10^6/uL Hgb (13.5-17.5) g/dL Hct (41-53) % MCV (80-100) fL MCH (26-34) PG MCHC (30-36) % RDW (11.6-14.8) % Plt Count (150-400) X10^3/uL Neut % (Auto) (50-75) % Lymph % (Auto) (25-40) % [place] % (Auto) (3-14) % Eos % (Auto) (2-4) % Baso % (Auto) (0-2) % Neut # (Auto) (1887-0394) /uL Lymph # (Auto) (6614-5455) /uL [place] # (Auto) (0-900) /uL Eos # (Auto) (0-450) /uL Baso # (Auto) (0-100) /uL PT 10.7 (10.1-12.7) SECONDS INR 0.9 (0.9-1.3) APTT 30 (26-36) SECONDS Sodium 142 (137-145) mmol/L Potassium 3.9 (3.4-5.1) mmol/L Chloride 105 (98-107) mmol/L Carbon Dioxide 31 (22-32) mmol/L BUN 24 H (9-20) mg/dL Creatinine 0.91 (0.66-1.25) mg/dL Estimated GFR > 60 (>60) mL/min BUN/Creatinine Ratio 26.4 H (6-22) Glucose 129 H (80-110) mg/dL Calcium 9.7 (8.4-10.2) mg/dL Magnesium 2.3 (1.6-2.3) mg/dL Total Bilirubin 0.4 (0.2-1.3) mg/dL AST 38 (17-59) IU/L ALT 29 (<50) IU/L Alkaline Phosphatase 265 H (38-126) U/L Total Creatine Kinase 44 L (55-170) U/L CK-MB (CK-2) TNP CK-MB (CK-2) Rel Index TNP Troponin I < 0.012 (0.01-0.034) ng/mL Total Protein 7.6 (6.3-8.2) g/dL Albumin 3.9 (3.5-5.0) g/dL Globulin 3.7 (1.7-4.1) g/dL Albumin/Globulin Ratio 1.1 (1.0-2.8) Lipase 65 (23-300) U/L Urine Color Urine Appearance Urine pH (4.5-8.0) Ur Specific [place] (1.000-1.035) Urine Protein (Negative) Urine Glucose (UA) (Negative) g/dL Urine Ketones (NEGATIVE) Urine Occult Blood (Negative) Urine Nitrate (Negative) Urine Bilirubin (NEGATIVE) Ur Bilirubin Confirm (Negative) Urine Urobilinogen (0.2) E.U./dL Ur Leukocyte Esterase (NEGATIVE) Urine RBC (0-5/HPF) Urine WBC (0-5/HPF) Ur Squamous Epith Cells (0-5/HPF) Amorphous Sediment Urine Bacteria (None) Ur Culture Indicated? SARS-CoV-2 (PCR) Negative (Negative) 10/22/22 10/22/22 Range/Units 07:37 12:18 WBC (4.5-11.0) X10^3/uL RBC (4.5-5.9) X10^6/uL Hgb (13.5-17.5) g/dL Hct (41-53) % MCV (80-100) fL MCH (26-34) PG MCHC (30-36) % RDW (11.6-14.8) % Plt Count (150-400) X10^3/uL Neut % (Auto) (50-75) % Lymph % (Auto) (25-40) % [place] % (Auto) (3-14) % Eos % (Auto) (2-4) % Baso % (Auto) (0-2) % Neut # (Auto) (1441-7706) /uL Lymph # (Auto) (6413-3760) /uL [place] # (Auto) (0-900) /uL Eos # (Auto) (0-450) /uL Baso # (Auto) (0-100) /uL PT (10.1-12.7) SECONDS INR (0.9-1.3) APTT (26-36) SECONDS Sodium 140 (137-145) mmol/L Potassium 3.4 (3.4-5.1) mmol/L Chloride 109 H (98-107) mmol/L Carbon Dioxide 27 (22-32) mmol/L BUN 20 (9-20) mg/dL Creatinine 0.75 (0.66-1.25) mg/dL Estimated GFR > 60 (>60) mL/min BUN/Creatinine Ratio 26.7 H (6-22) Glucose 96 (80-110) mg/dL Calcium 9.4 (8.4-10.2) mg/dL Magnesium (1.6-2.3) mg/dL Total Bilirubin 0.2 (0.2-1.3) mg/dL AST 35 (17-59) IU/L ALT 26 (<50) IU/L Alkaline Phosphatase 263 H (38-126) U/L Total Creatine Kinase 78 (55-170) U/L CK-MB (CK-2) TNP CK-MB (CK-2) Rel Index TNP Troponin I < 0.012 (0.01-0.034) ng/mL Total Protein 7.0 (6.3-8.2) g/dL Albumin 3.5 (3.5-5.0) g/dL Globulin 3.5 (1.7-4.1) g/dL Albumin/Globulin Ratio 1.0 (1.0-2.8) Lipase (23-300) U/L Urine Color Red Urine Appearance Cloudy Urine pH 7.0 (4.5-8.0) Ur Specific [place] 1.020 (1.000-1.035) Urine Protein 2+ H (Negative) Urine Glucose (UA) Negative (Negative) g/dL Urine Ketones Negative (NEGATIVE) Urine Occult Blood 3+ H (Negative) Urine Nitrate Negative (Negative) Urine Bilirubin 1+ H (NEGATIVE) Ur Bilirubin Confirm Negative (Negative) Urine Urobilinogen 1.0 (0.2) E.U./dL Ur Leukocyte Esterase Trace H (NEGATIVE) Urine RBC >100/hpf H (0-5/HPF) Urine WBC 1-5/hpf (0-5/HPF) Ur Squamous Epith Cells 0-1 /hpf (0-5/HPF) Amorphous Sediment Urine Bacteria Occasional (0-1) (None) Ur Culture Indicated? Specimen cultured SARS-CoV-2 (PCR) (Negative) Urine Dip Bedside Urine Glucose Negative Bedside Urine Bilirubin + 1 Bedside Urine Ketone - Negative Urine Specific [place] 1.030 Bedside Urine Occult Blood +++ Bedside Urine pH 5.5 Bedside Urine Protein + 30 Bedside Urine Urobilinogen - Negative Bedside Urine Nitrite - Negative Bedside Urine Leukocytes +/- 15 Esterase MDM Narrative Medical decision making narrative: Family was not at bedside for my initial evaluation. Attempted to contact his son at the number provided in the EMR however no one answered. A message was left. Nursing staff attempted multiple times to contact the patient's son to have him come back to the emergency department. Multiple messages were left however no one answered these messages. His workup here in the emergency department has been relatively unremarkable. He was given Benadryl as he was asking for something to help him sleep. He was given his metoprolol which according to his medical record he takes for his blood pressure. Indication for admission to the hospital. Patient stayed multiple hours here in the emergency department due to the lack of the ability to contact family. Care turned over to Dr. Whyte to continue to observe until family can be found and disposition. [0700] (Pato) Patient received in sign out from [Paxton]. I have reviewed the clinical course and performed an independent history and physical exam. Patient is had multiple interactions with myself, nursing staff, physical therapy social work. There is no admittable diagnosis. Patient expected to be discharged this afternoon when his son gets off of work. He does have a subtle urinary tract infection which has been addressed here. Prescription sent to his pharmacy of choice. <Mayra Matta, DO - Last Filed: 10/24/22 02:27> Lab Data Labs: Lab Results 10/21/22 10/21/22 10/21/22 Range/Units 20:30 20:30 20:50 WBC 7.2 (4.5-11.0) X10^3/uL RBC 3.64 L (4.5-5.9) X10^6/uL Hgb 10.8 L (13.5-17.5) g/dL Hct 32.4 L (41-53) % MCV 89.0 (80-100) fL MCH 29.7 (26-34) PG MCHC 33.3 (30-36) % RDW 15.1 H (11.6-14.8) % Plt Count 337 (150-400) X10^3/uL Neut % (Auto) 53.4 (50-75) % Lymph % (Auto) 23.2 L (25-40) % [place] % (Auto) 11.3 (3-14) % Eos % (Auto) 10.7 H (2-4) % Baso % (Auto) 1.4 (0-2) % Neut # (Auto) 3900 (5649-4863) /uL Lymph # (Auto) 1700 (5746-5951) /uL [place] # (Auto) 800 (0-900) /uL Eos # (Auto) 800 H (0-450) /uL Baso # (Auto) 100 (0-100) /uL PT (10.1-12.7) SECONDS INR (0.9-1.3) APTT (26-36) SECONDS Sodium (137-145) mmol/L Potassium (3.4-5.1) mmol/L Chloride (98-107) mmol/L Carbon Dioxide (22-32) mmol/L BUN (9-20) mg/dL Creatinine (0.66-1.25) mg/dL Estimated GFR (>60) mL/min BUN/Creatinine Ratio (6-22) Glucose (80-110) mg/dL Calcium (8.4-10.2) mg/dL Magnesium (1.6-2.3) mg/dL Total Bilirubin (0.2-1.3) mg/dL AST (17-59) IU/L ALT (<50) IU/L Alkaline Phosphatase (38-126) U/L Total Creatine Kinase (55-170) U/L CK-MB (CK-2) CK-MB (CK-2) Rel Index Troponin I (0.01-0.034) ng/mL Total Protein (6.3-8.2) g/dL Albumin (3.5-5.0) g/dL Globulin (1.7-4.1) g/dL Albumin/Globulin Ratio (1.0-2.8) Lipase (23-300) U/L Urine Color Urine Appearance Urine pH (4.5-8.0) Ur Specific [place] (1.000-1.035) Urine Protein (Negative) Urine Glucose (UA) (Negative) g/dL Urine Ketones (NEGATIVE) Urine Occult Blood (Negative) Urine Nitrate (Negative) Urine Bilirubin (NEGATIVE) Ur Bilirubin Confirm Negative (Negative) Urine Urobilinogen (0.2) E.U./dL Ur Leukocyte Esterase (NEGATIVE) Urine RBC 10-30/hpf H (0-5/HPF) Urine WBC 1-5/hpf (0-5/HPF) Ur Squamous Epith Cells 0-1 /hpf (0-5/HPF) Amorphous Sediment 1+ Urine Bacteria Occasional (0-1) (None) Ur Culture Indicated? SARS-CoV-2 (PCR) (Negative) 10/21/22 10/21/22 10/21/22 Range/Units 20:50 20:50 21:17 WBC (4.5-11.0) X10^3/uL RBC (4.5-5.9) X10^6/uL Hgb (13.5-17.5) g/dL Hct (41-53) % MCV (80-100) fL MCH (26-34) PG MCHC (30-36) % RDW (11.6-14.8) % Plt Count (150-400) X10^3/uL Neut % (Auto) (50-75) % Lymph % (Auto) (25-40) % [place] % (Auto) (3-14) % Eos % (Auto) (2-4) % Baso % (Auto) (0-2) % Neut # (Auto) (9577-6279) /uL Lymph # (Auto) (4050-2796) /uL [place] # (Auto) (0-900) /uL Eos # (Auto) (0-450) /uL Baso # (Auto) (0-100) /uL PT 10.7 (10.1-12.7) SECONDS INR 0.9 (0.9-1.3) APTT 30 (26-36) SECONDS Sodium 142 (137-145) mmol/L Potassium 3.9 (3.4-5.1) mmol/L Chloride 105 (98-107) mmol/L Carbon Dioxide 31 (22-32) mmol/L BUN 24 H (9-20) mg/dL Creatinine 0.91 (0.66-1.25) mg/dL Estimated GFR > 60 (>60) mL/min BUN/Creatinine Ratio 26.4 H (6-22) Glucose 129 H (80-110) mg/dL Calcium 9.7 (8.4-10.2) mg/dL Magnesium 2.3 (1.6-2.3) mg/dL Total Bilirubin 0.4 (0.2-1.3) mg/dL AST 38 (17-59) IU/L ALT 29 (<50) IU/L Alkaline Phosphatase 265 H (38-126) U/L Total Creatine Kinase 44 L (55-170) U/L CK-MB (CK-2) TNP CK-MB (CK-2) Rel Index TNP Troponin I < 0.012 (0.01-0.034) ng/mL Total Protein 7.6 (6.3-8.2) g/dL Albumin 3.9 (3.5-5.0) g/dL Globulin 3.7 (1.7-4.1) g/dL Albumin/Globulin Ratio 1.1 (1.0-2.8) Lipase 65 (23-300) U/L Urine Color Urine Appearance Urine pH (4.5-8.0) Ur Specific [place] (1.000-1.035) Urine Protein (Negative) Urine Glucose (UA) (Negative) g/dL Urine Ketones (NEGATIVE) Urine Occult Blood (Negative) Urine Nitrate (Negative) Urine Bilirubin (NEGATIVE) Ur Bilirubin Confirm (Negative) Urine Urobilinogen (0.2) E.U./dL Ur Leukocyte Esterase (NEGATIVE) Urine RBC (0-5/HPF) Urine WBC (0-5/HPF) Ur Squamous Epith Cells (0-5/HPF) Amorphous Sediment Urine Bacteria (None) Ur Culture Indicated? SARS-CoV-2 (PCR) Negative (Negative) 10/22/22 10/22/22 Range/Units 07:37 12:18 WBC (4.5-11.0) X10^3/uL RBC (4.5-5.9) X10^6/uL Hgb (13.5-17.5) g/dL Hct (41-53) % MCV (80-100) fL MCH (26-34) PG MCHC (30-36) % RDW (11.6-14.8) % Plt Count (150-400) X10^3/uL Neut % (Auto) (50-75) % Lymph % (Auto) (25-40) % [place] % (Auto) (3-14) % Eos % (Auto) (2-4) % Baso % (Auto) (0-2) % Neut # (Auto) (5074-7005) /uL Lymph # (Auto) (6954-4992) /uL [place] # (Auto) (0-900) /uL Eos # (Auto) (0-450) /uL Baso # (Auto) (0-100) /uL PT (10.1-12.7) SECONDS INR (0.9-1.3) APTT (26-36) SECONDS Sodium 140 (137-145) mmol/L Potassium 3.4 (3.4-5.1) mmol/L Chloride 109 H (98-107) mmol/L Carbon Dioxide 27 (22-32) mmol/L BUN 20 (9-20) mg/dL Creatinine 0.75 (0.66-1.25) mg/dL Estimated GFR > 60 (>60) mL/min BUN/Creatinine Ratio 26.7 H (6-22) Glucose 96 (80-110) mg/dL Calcium 9.4 (8.4-10.2) mg/dL Magnesium (1.6-2.3) mg/dL Total Bilirubin 0.2 (0.2-1.3) mg/dL AST 35 (17-59) IU/L ALT 26 (<50) IU/L Alkaline Phosphatase 263 H (38-126) U/L Total Creatine Kinase 78 (55-170) U/L CK-MB (CK-2) TNP CK-MB (CK-2) Rel Index TNP Troponin I < 0.012 (0.01-0.034) ng/mL Total Protein 7.0 (6.3-8.2) g/dL Albumin 3.5 (3.5-5.0) g/dL Globulin 3.5 (1.7-4.1) g/dL Albumin/Globulin Ratio 1.0 (1.0-2.8) Lipase (23-300) U/L Urine Color Red Urine Appearance Cloudy Urine pH 7.0 (4.5-8.0) Ur Specific [place] 1.020 (1.000-1.035) Urine Protein 2+ H (Negative) Urine Glucose (UA) Negative (Negative) g/dL Urine Ketones Negative (NEGATIVE) Urine Occult Blood 3+ H (Negative) Urine Nitrate Negative (Negative) Urine Bilirubin 1+ H (NEGATIVE) Ur Bilirubin Confirm Negative (Negative) Urine Urobilinogen 1.0 (0.2) E.U./dL Ur Leukocyte Esterase Trace H (NEGATIVE) Urine RBC >100/hpf H (0-5/HPF) Urine WBC 1-5/hpf (0-5/HPF) Ur Squamous Epith Cells 0-1 /hpf (0-5/HPF) Amorphous Sediment Urine Bacteria Occasional (0-1) (None) Ur Culture Indicated? Specimen cultured SARS-CoV-2 (PCR) (Negative) Urine Dip Bedside Urine Glucose Negative Bedside Urine Bilirubin + 1 Bedside Urine Ketone - Negative Urine Specific [place] 1.030 Bedside Urine Occult Blood +++ Bedside Urine pH 5.5 Bedside Urine Protein + 30 Bedside Urine Urobilinogen - Negative Bedside Urine Nitrite - Negative Bedside Urine Leukocytes +/- 15 Esterase MDM Narrative Medical decision making narrative: Family was not at bedside for my initial evaluation. Attempted to contact his son at the number provided in the EMR however no one answered. A message was left. Nursing staff attempted multiple times to contact the patient's son to have him come back to the emergency department. Multiple messages were left however no one answered these messages. His workup here in the emergency department has been relatively unremarkable. He was given Benadryl as he was asking for something to help him sleep. He was given his metoprolol which according to his medical record he takes for his blood pressure. Indication for admission to the hospital. Patient stayed multiple hours here in the emergency department due to the lack of the ability to contact family. Care turned over to Dr. Whyte to continue to observe until family can be found and disposition. [0700] (Pato) Patient received in sign out from [Paxton]. I have reviewed the clinical course and performed an independent history and physical exam. Patient is had multiple interactions with myself, nursing staff, physical therapy social work. There is no admittable diagnosis. Patient expected to be discharged this afternoon when his son gets off of work. He does have a subtle urinary tract infection which has been addressed here. Prescription sent to his pharmacy of choice. Discharge Plan Departure Patient Disposition: Home Clinical Impression: Acute UTI Instructions: DI for Urinary Tract Infection (UTI) Activity Restrictions/Additional Instructions: *You have been diagnosed with [urinary tract infection, generalized failure to thrive, dementia] *What to do: *Please continue to take your regular medications as directed. [ ] New medication prescriptions sent to your pharmacy: [ ] [ ] New medication written as a paper prescription [ ] No new medications given *Please follow up with your primary care provider in 2-3 days, call for an appointment. Let them know you were seen in the Emergency Department and that we ask that you be seen in follow up. We will electronically transmit a record of today's note if your PCP is in our system *If you do not have a primary care provider please contact the [facility] Resource line at [phone]. They will ask some questions about your medical history and help get you set up with a doctor in the community. *Return to Emergency Department if you should have any new, worsening or concerning symptoms, such as [fever greater than 101 F, shaking chills, worsening pain, persistent vomiting or other bothersome symptoms] Prescriptions: New sulfamethoxazole-trimethoprim [Bactrim DS] 800-160 mg tablet 1 tab PO BID 7 Days Qty: 14 0RF No Action sertraline 50 mg tablet 50 mg PO DAILY levothyroxine 125 mcg tablet 150 mcg PO DAILY meclizine 12.5 mg Tablet 25 mg PO Q6HR PRN (Reason: Vertigo) Qty: 15 0RF clopidogrel 75 mg Tablet 75 mg PO DAILY Qty: 30 0RF hydrocodone-acetaminophen 10-325 mg Tablet 1 tab PO Q4HR PRN (Reason: Pain, Moderate (4-6)) Qty: 20 0RF hydroxyzine HCl 25 mg Tablet 25 mg PO QID PRN (Reason: Itching) lovastatin 40 mg Tablet 40 mg PO QPM metoprolol succinate 25 mg tablet extended release 24 hr 12.5 mg PO DAILY Patient Comments: take 1/2 tablet by mouth once daily Referrals: Robles Mane MD [Primary Care Provider] - Stand Alone Forms: Patient Portal/API
[2022-10-22] VITALS (103 sets, daily range): BP systolic 168–230; BP diastolic 70–139; PULSE 48–98; RESP 14–32; O2SAT 91–99
[2022-10-22] MEDS: METOPROLOL ER 25 MG TABLET PO ×2 (00:18→17:33)
[2022-10-22] MEDS: diphenhydrAMINE 25 MG TABLET PO (01:57)
--- NOTE | 2022-10-22 02:04 | PC.NURSE ---
Addendum entered by Alysha Watkins CNA 10/22/22 07:08: GERMÁN note: Patient is continuing to excessively call. Patient wants us to call his son. Patient believes it is dinner time. Explained the time and it was still early in the morning. Addendum entered by Alysha Watkins CNA 10/22/22 04:59: GERMÁN note: Patient continues to call in a high frequency. He calls and wants us to call his son. He asks where his son is, why his son isn't here. Patient has no concept of what time it is. When I told him it is 4am he said no it isn't. Explained how to use to call light, patient expressed understanding. When light isn't answered within 10 seconds patient yells out Hello? Hello? Original Note: GERMÁN note: Patient is pressing call light every 2-5 minutes. Patient calling about finding his son, about a woman was just in here..., wanting medications. Staff explained to patient when to use the call light. Patient expressed understanding of expectations for call light usage. Patient then called 2 minutes later. RN and doctor aware.
[2022-10-22] MEDS: CLOPIDOGREL 75 MG TABLET PO (07:59)
[2022-10-22] MEDS: LEVOTHYROXINE 75 MCG TABLET 150 MCG PO (07:59)
[2022-10-22 08:05] LABS: Alanine Aminotransferase 26 IU/L (<50); Albumin 3.5 g/dL (3.5-5.0); Alkaline Phosphatase 263 U/L (38-126); Aspartate Aminotransferase 35 IU/L (17-59); BUN Creatinine Ratio 26.7 (6-22); Bilirubin Total 0.2 mg/dL (0.2-1.3); Blood Urea Nitrogen 20 mg/dL (9-20); Calcium 9.4 mg/dL (8.4-10.2); Carbon Dioxide 27 mmol/L (22-32); Chloride 109 mmol/L (98-107); Creatine Kinase 78 U/L (55-170); Estimated Glomerular Filt Rate > 60 mL/min (>60); Globulin 3.5 g/dL (1.7-4.1); Glucose 96 mg/dL (80-110); HEMOLYSIS < 15 (0-50); Potassium 3.4 mmol/L (3.4-5.1); Sodium 140 mmol/L (137-145)
[2022-10-22 08:16] LABS: Troponin I < 0.012 ng/mL (0.01-0.034)
--- NOTE | 2022-10-22 08:57 | PC.NURSE ---
Called pt's son. No answer. Left a message
--- NOTE | 2022-10-22 09:00 | PC.NURSE ---
Addendum entered by Addis Jose R.N. 10/22/22 09:01: Time was 0717 Original Note: Pt had a 7 beat run of what appears to be V-tach. Dr. Whyte notified. Labs and repeat EKG ordered. Pt is doing well. Pt had/has no symptoms
--- NOTE | 2022-10-22 11:30 | PC.NURSE ---
WIRELINE FIELD OPERATOR Note - Attempted to help patient walk due to history of becoming delirious in extended hospital stays. Patient sat up and immediately complained of lightheadedness. Took a moment to stand with assistance of a walker, and the patient complained of similar levels of lightheadedness as well as the fact that I had to hold down the walker so the patient would not pull it back from falling, and being extremely unsteady on his feet.
--- NOTE | 2022-10-22 12:08 | PC.NURSE ---
I responded to patient using call light, patient states Are they here yet? the doctor is coming to do a tit job on her. I attempted to reorient patient and informed him that we are waiting here for now.
--- NOTE | 2022-10-22 12:09 | PC.NURSE ---
Pt's son answered the phone and spoke with Dr. Whyte. Dr. Whyte spoke with CHARITY Amaya
--- NOTE | 2022-10-22 12:10 | PC.NURSE ---
Pt constantly uses call button and this TOOL DESIGN DRAFTSPERSON went in to deliver their lunch tray. Pt expressed his want to leave and that he just wants to get out of here. This TOOL DESIGN DRAFTSPERSON reassured him that we're working on a plan for him, but pt continued to express his anger about his current position.
--- NOTE | 2022-10-22 12:16 | PC.NURSE ---
Around 1115 Patient used call light and I answered. Patient was asking what the next steps are for him to get home since his son is not picking up the calls. Patient expressed his wants of going home, patient was reassured that we are working on a plan for him to get home.
--- NOTE | 2022-10-22 13:12 | PC.NURSE ---
TAX ADVISOR Note: Pt was screaming for someone to come into his room instead of using their call button. This TAX ADVISOR answered and helped him find the nurse who he wanted to talk to.
[2022-10-22 13:13] LABS: Appearance Urine UA CLOUDY; Bilirubin Urine UA 1+ (NEGATIVE); Color Urine UA RED; Glucose Urine UA NEGATIVE (Negative); Ketones Urine UA NEGATIVE (NEGATIVE); Leukocyte Esterase Urine UA TRACE (NEGATIVE); Nitrite Urine UA NEGATIVE (Negative); Occult Blood Urine UA 3+ (Negative); Protein Urine UA 2+ (Negative)
--- NOTE | 2022-10-22 13:25 | PC.NURSE ---
INSURANCE SALES PRODUCER Note: Patient yelled for help. Stated that he wanted to use the bathroom and have a BM. Also that he wanted Sherri and his manager social responsibility because he has been waiting. When another INSURANCE SALES PRODUCER and I came back to help him use the commode, patient refused and become agitated stating he could hold my shit until I have Sherri.
[2022-10-22 13:31] LABS: Bacteria Urine Occasional (0-1); Culture Indicated Urine Specimen Cultured; RBC Urine >100/HPF (0-5/HPF); Squamous Epithelial Cell Urine 0-1 /HPF (0-5/HPF); WBC Urine 1-5/HPF (0-5/HPF)
--- NOTE | 2022-10-22 13:32 | PC.NURSE ---
BUILDINGS AND GROUNDS SUPERVISOR Note: Patient cried out for help and another BUILDINGS AND GROUNDS SUPERVISOR and I answered the call for this pt's need to have a BM. When we came into the room to help, he stated that he wanted Sherri and he stated that he could hold my shit in my ass until you get Sherri. These two CNAs complied and walked out of the room to find the nurse and report on what he said.
[2022-10-22 13:40] LABS: Ictotest Urine Negative (Negative)
[2022-10-22] MEDS: HYDROCODONE/ACET 5/325 TABLET 2 TAB PO (15:02)
--- NOTE | 2022-10-22 17:27 | PT.IIE ---
Medical History (Last Reviewed 10/21/22 @ 22:23 by Abdon Conroy DO) Cerebrovascular accident Chronic GERD Dementia Hyperlipidemia Hypertension Physical Therapy Inpatient Evaluation/Re-Eval M1 PT/OT-IP Prior Functional Status Start: 10/22/22 17:27 Freq: Status: Active Protocol: Document 10/22/22 16:55 DCW (Rec: 10/22/22 17:46 DCW [id number]) Medical Review Prior Functional Status Medical History Reviewed Yes Communication Confused Mobility and Gait Difficult to determine, pt is a very poor historian. From prior notes, pt appears to rely on son for transfers as primary caregiver for transfers, potentially will occasionally use FWW for ambulation Prior Functional Level (Other details) Demential, failure to thrive Social History Household Members children M2 PT-IP Current Condition Start: 10/22/22 17:27 Freq: Status: Active Protocol: Document 10/22/22 16:55 DCW (Rec: 10/22/22 17:46 DCW [id number]) Physical Therapy Current Condition Current Condition Evaluation Date 10/22/22 Treatment Diagnosis Disoriented, falls, confusion Onset Date 10/21/22 M3 PT-IP Subjective Start: 10/22/22 17:27 Freq: Status: Active Protocol: Document 10/22/22 16:55 DCW (Rec: 10/22/22 17:46 DCW [id number]) Subjective Physical Therapy Visit Type Type Initial Evaluation Visit Start Time 16:55 Visit Stop Time 17:27 Total Visit Minutes 32 Notes Pt supine in bed removing pulse ox, BP cuff, and unhooking Tele upon therapist entering room. States he is getting ready for when his son picks him up. Able to briefly redirect. Pt notes some vague head pain, but wants to show to PT that he can get up just fine on his own. Number of ISOBUTYLENE OPERATOR CHIEF Visits 0 Physical Therapy Visit Comments Patient Comments I'm out of here as soon as my son gets here. Therapy Pain Assessment Pain Present Pain Present Pain Reported Location Generalized Intensity 1 Scale Used Aleman-Ramos (Faces) M4 PT-IP Mobility and Gait Start: 10/22/22 17:27 Freq: Status: Active Protocol: Document 10/22/22 16:55 DCW (Rec: 10/22/22 17:46 DCW [id number]) PT-Bed Mobility Assessment Rolling Type of Rolling Roll to Right Level of Assist Independent Supine to Sit Supine to Sit Independent Sit to Supine Sit to Supine Independent Scooting Scooting to Edge of Bed Independent Scooting Up and Down in Bed Independent PT-Transfer Assessment Sit to and From Stand Sit to and from Stand Minimal Assistance,1 Person Assistance Equipment Transfer Assistive Device Front Wheeled Walker Comments Mobility Comments Pt largely able to perform all bed mobility and transfers SBA, however upon standing, even with use of FWW, pt immediately falls backward and requires Min-Mod Ax1 to remain upright. Attempting to take a step sends him back even farther. Pt very impulsive with everything, difficult to keep focused on any activity, very poor safety awareness. M5 PT-IP Objective Assessments Start: 10/22/22 17:27 Freq: Status: Active Protocol: Document 10/22/22 16:55 DCW (Rec: 10/22/22 17:46 DCW [id number]) Orientation Orientation/Cognition Level of Alertness Confusional State Orientation Name,Birthday,Place,Situation Language Function Ability No Deficits Noted Safety Awareness Decreased Safety Awareness Memory Description Short Term Impaired Comments Pt able to relay name and date of , aware he is in the hospital in [place], however confidently guesses July 04, 2000 for today's date. Gross Range of Motion Lower Extremity ROM Assessment Within Functional Limits Strength Lower Extremity Strength Assessment Within Functional Limits M7 PT-IP Assessment and Plan Start: 10/22/22 17:27 Freq: Status: Active Protocol: Document 10/22/22 16:55 DCW (Rec: 10/22/22 17:46 DCW [id number]) PT Summary Assessment and Plan Potential Rehabilitation Potential Poor Status of Condition at Evaluation Unstable Summary Impairments Cognition,Gait,Activity Tolerance Assessment Summary Pt able to perform bed mobility independently, gets himself to EOB with no difficulty. Upon attempting to stand, pt almost immediately falls backward, requires Min- Mod Ax1. Stability even worse attempting to take a step. Pt very impulsive, poor awareness of safety issues. Attempting to go home, mikeeives his son is on his way to pick him up. Very difficult to determine PLOF due to poor historian due to cognition, however between inability to stand without retro falling and impulsive behavior, difficult to believe pt would be safe to return home, would likely benefit from LTC facility. After re- directing pt and getting him to lie back in bed, BP was measured at 230/103. RN informed immediately, pt left in bed with call button within reach. Goals Gait Goal Minimal Assistance,Front Wheel Walker Gait Distance 25 Days to Meet Goals 2 Frequency of Treatment Frequency Of Treatment Once a Day Treatment Plan Physical Therapy Treatment Plan Gait Training,Balance Retraining,Neuromuscular Re-ed Recommendations To Nursing Amount of Assist Needed 1 Person Assist,2 Person Assist Discharge Recommendations PT Discharge Recommendations LTAC
[2022-10-22] MEDS: SERTRALINE 50 MG TABLET PO (17:33)
--- NOTE | 2022-10-22 18:50 | PC.NURSE ---
Pt has removed his own IV
--- NOTE | 2022-10-22 18:57 | CM.SWNOTE ---
ED TIP BANDER/DCP Note Patient is 72 y/o male who presents to last night via POV with son due to concern for patient's GLF and disorientation. Patient has Dementia at baseline. It is reported that RNs called patient's several son without response and ED provider spoke with son Shane today and informed son that patient does not have medical need for admission at this hospital. Patient's PCP is Dr. Mane, [facility]. Patient has [employer] medicare insurance. Per Registration, patient does not have Medicaid insurance. This is patient's third presentation to the ED since April 2022 regarding similar situations where patient's son shows difficulty engaging with ED team and DCP team in regards to setting up plan of care and discharge for patient. Patient's son Shane is patient's primary care provider and DPOA for patient. TIP BANDER calls [facility] patient case coordinator Radha Schneider (Ph. # [phone]) who was last assigned to patient in May 2022 regarding Medicaid application, TIP BANDER leaves requesting return call. The difficulty upon last presentation was that patient's son did not provide all of financial documentation required for Medicaid application, per EMR, patient's son provided such documentation upon d/c and CHARITY [place] faxed documents to this [facility] financial patient case coordinator. TIP BANDER calls Shane and leaves VM requesting return call (Ph. # [phone]) TIP BANDER reviews EMR and TIP BANDER to f/u with other family members to determine plan of care. PT is consulted and patient is recommended for [facility], 1-2 person assist. Patient uses FWW for ambulation. TIP BANDER contacts APS due to concerns for abandonment at ED. APS Online Report Confirmation Number: [id number]. Plan: TIP BANDER to f/u with [facility] trimming caser, APS, patient's son Shane and other family members regarding plan of care. TIP BANDER to encourage ED staff to reach out to patient's son. ALLISON Bowles
--- NOTE | 2022-10-22 19:05 | PC.NURSE ---
Dr. Whyte okayed for pt to be off the monitor and to do occasional VS
--- NOTE | 2022-10-22 19:30 | PC.NURSE ---
Addendum entered by Alysha Watkins CNA 10/23/22 06:30: GERMÁN note: @0530 I heard a noise. Walked into patient's room. Patient was standing very unsteady at the bottom of his bed with a smile holding onto his walker. Ack! What are you doing? I asked. [facility]. I'm getting up to take out the trash, he whispered. Patient was very unsteady. Got him back into bed. Told him he needed to stay in bed. He wanted me to add another log onto the fire and call his son. I brought him a warm blankets. I told him I would call his son. Took patient's vital signs. Addendum entered by Alysha Watkins CNA 10/23/22 01:10: GERMÁN note: Patient whispered for me to come in. He said that blue bag scares me. It has automotive collision repair instructor and cookies in it. Addendum entered by Alysha Watkins CNA 10/22/22 23:00: Patient called multiple times, in the last twenty minutes. Told patient yamily, I'm gonna' need you to slow your roll and stop pressing the call light for a bit. We have something happening here and the staff is gonna' be tied up. Patient said oh okay. And expressed understanding. He called 5 minutes later. He asked me to sit with him. I said Blaine, I am calling in a helicopter. Right now I can't talk to you. But we can chat later, but right now... just hang out. Patient said okay. Then as I was leaving asked Can you get me a warm blanket? Hold my hand? And change my diaper. Rhonda GERMÁN had emptied his urinal less than 5 minutes before. Zakia POP aware Addendum entered by Alysha Watkins CNA 10/22/22 21:30: Answered call light twice more in last 10 minutes. Patient stated he'd like some tylenol. Patient wants someone to sit with him. Spoke to Zakia POP, who said he's answered call light 7 times since he's gotten here. Addendum entered by Alysha Watkins CNA 04/12/23 21:06: Patient called. He would like some 7-up. Addendum entered by Alysha Watkins CNA 10/22/22 20:48: Patient called. Asked how could I help. Patient asked me to sit down and if I could be his friend. Patient seems lonely. Patient wants companionship. Addendum entered by Alysha Watkins CNA 10/22/22 20:06: FUR POINTER note: Patient called again. Asked what I could do for him. You can't do anything for me. I asked Why did you call then? Patient shrugged. Explained to patient the need to use the call light appropriately. Patient expressed understanding. Patient yelled out again at [place] POP walking by that's my doc! Asked if I could help. Said that he just saw his doctor, and pointed to [place]. Said no you're doctor for nights is Dr. Matta. Patient rolled his eyes and dismissed me with a wave of his hand. Addendum entered by Alysha Watkins CNA 10/22/22 19:44: Patient called twice more, asking well when am I gonna' get out of here? and I'm stuck here. I acknowledged how frustrating it must be and offered a warm blanket. Refused. Original Note: GERMÁN note: at 1920 patient was hollering out. Hey hey hey waving hands. Asked what I could I do for him. Patient said I'm not calling. That lady is calling me. Told patient that we are here all night to help him.
--- NOTE | 2022-10-22 19:42 | PC.NURSE ---
pt was at the edge of bed, assisted pt back into bed. pt asked about leaving, stated he wanted to leave. Told pt. there was shift change was currently happening an RN will be in to check on him shortly. Encouraged pt. to use call light.
--- NOTE | 2022-10-22 20:07 | PC.NURSE ---
I called his son Wander and there was no answer.A message was left regarding Gareth discharge.
--- NOTE | 2022-10-22 22:10 | PC.NURSE ---
answered call light. pt stated he would like his meds now if he could have them. Told pt i would notify the nurse.
[2022-10-23] VITALS (18 sets, daily range): BP systolic 167–208; BP diastolic 81–108; PULSE 56–105; RESP 18; O2SAT 93–99
--- NOTE | 2022-10-23 06:28 | PC.NURSE ---
PRODUCTION LINE SOLDERER note [id number] called Wander Cotter's cell phone. It immediately went to voice mail. Said that his dad would like him to pick him up. So please call us back. Gave unit's phone number. Charge nurse aware.
[2022-10-23] MEDS: LEVOTHYROXINE 75 MCG TABLET 150 MCG PO (09:00)
--- NOTE | 2022-10-23 09:03 | PC.NURSE ---
Pt got out of bed, removed his brief, removed his IV and stated he was leaving. He arm was bleeding so he wiped blood on the wall and curtain of his tx room. Pt is hallucinating, thinks a friend of his is laying on the floor. Pt is becoming less directable and more agitated.
--- NOTE | 2022-10-23 09:22 | PC.NURSE ---
Esther NASH called to say community data warehouse developer is attempting to find pt's adult son. Its our understanding that pt lives with adult son, locally. Son is not returning phone calls and messages left by clinical ED staff.
--- NOTE | 2022-10-23 09:38 | PC.NURSE ---
flower buncher or picker RN did not give pt [facility] as scheduled. Stated pt was sleeping.
[2022-10-23] MEDS: QUETIAPINE 25 MG TABLET 50 MG PO (09:43)
--- NOTE | 2022-10-23 12:48 | CM.SWNOTE ---
DOLL WIGS HACKLER Note Reviewed chart. LM with HCS worker Radha Schneider (Ph. 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 Left message explaining that patient is eager to return home and is looking for a way to get home now- ER staff could set up a taxi to son's house vs shop if someone would be there to greet him, no call back Emailed customer sales specialist Davy Moreira at [facility] [email or web address] asking for an update on this patient re [facility] - patient still does not have a [facility] provider one number assigned Davy merritt- Ginette Skinner was the assigned social media intern until this case became inactive 10.20.22 (?) Newly assigned social media intern is JEOVANY Stuart Email: [email or web address] Updated ED DOLL WIGS HACKLER,ALLISON Jaffe upon her arrival to her shift at 1200 Plan: Discharge home w/family is expected today, minimal communication w/family since patient dropped off with family complaint of fall and altered mental status . New [facility] social media intern assigned CHARITY Mcgill
[2022-10-23] MEDS: METOPROLOL ER 25 MG TABLET PO (12:57)
[2022-10-23] MEDS: haloperidoL 5 MG TABLET 2 MG PO (13:00)
--- NOTE | 2022-10-23 13:44 | PC.NURSE ---
Upon entering this patient room for the first time this RN noted that the patient was bleeding from his right elbow. This RN irrigated the area with normal saline and their is 1cm scratch. Dr. Whyte notified and wound dressed with 4x4 gauze and lightly wrapped with coban.
--- NOTE | 2022-10-23 14:23 | PT-IP ANOTE ---
Per RN, pt d/c home today, no need for PT treatment today just needed IE yesterday to assist w/ d/c plan.
[2022-10-23] MEDS: TRIMETH/SULFA 160/800 (DS) TABLET 1 TAB PO (16:22)
--- NOTE | 2022-10-23 17:59 | CM.SWNOTE ---
Addendum entered by Monique Jaffe 10/23/22 19:33: PHP CONSULTANT calls patient's son again at 1930 and leaves requesting son to come to ED and return call to ED regarding picking up patient upon d/c. PHP CONSULTANT informs cardiac technologist and ED provider. ALLISON Bowles Addendum entered by Monique Jaffe 10/23/22 18:13: cardiac technologist calls patient's son Shane 1 hour after PHP CONSULTANT does, Shane reports I just spoke with someone 20 minutes ago cardiac technologist corrects Shane regarding when the last call was. Shane reports that he is cleaning patient's room and preparing for patient's return home and will be at ED by 1915ish. cardiac technologist kindly requests this ETA and requests son to come pick and shovel man patient at this time. ALLISON Bowles Original Note: PHP CONSULTANT/ ED DCP Note PHP CONSULTANT reviews patient with CHARITY Santana regarding contact with [facility], APS and Community Exploration Manager. Per Esther's conversation with son, he will pick patient up after work at the latest after 1700. PHP CONSULTANT calls [facility] Exploration Manager and leaves requesting formal referral to f/u with patient and family regarding family f/u with outpatient needs for patient. PHP CONSULTANT receives calls from [place] with APS (Ph. # [phone]) It is reported that APS referral screened in and he reports he will meet with patient and family tomorrow. It is reported that patient was assessed by [facility] in August 2022 and there is a pending application for patient with Financial SW assigned. PHP CONSULTANT receives call from [facility] Financial group worker assigned Atzaira Stuart (Ph. # [phone]) It is reported that she is newly assigned and will reach out to family and patient regarding current pending [facility] application. PHP CONSULTANT calls Shane at 1715, Shane answers the phone and reports that he is on my way, CPS was just at my house. PHP CONSULTANT reviews this with rim fire charger operator, RN, and ED provider. Patient is medically clear for d/c and discharging with antibiotics for UTI. cardiac technologist and PHP CONSULTANT to call patient's son again to ensure discharge. Plan: Patient to d/c to home with son. APS & [facility] HCS case workers to f/u with patient and family. ALLISON Bowles
== END 2022-10-23 20:39 | disposition home or self-care (01) ==
PROVIDERS: Emergency Medicine; Emergency Provider Emergency Medicine; PCP Internal Medicine
DX: N39.0 Urinary tract infection, site not specified (principal); R07.9 Chest pain, unspecified; F03.90 Unspecified dementia, unspecified severity, without behavioral disturbance, psychotic disturbance, mood disturbance, and anxiety; S09.90XA Unspecified injury of head, initial encounter; W19.XXXA Unspecified fall, initial encounter; Z20.822 Contact with and (suspected) exposure to COVID-19
CPT/HCPCS: 36415; 70450; 71045; 72125; 80053; 81001; 81003; 81015; 82550; 83690; 83735; 84484; 85025; 85610; 85730; 87086; 87635; 93005; 97163; 99284; C9803

== ENCOUNTER 2022-11-14 10:02 | Emergency (ER) | payer OTHER, SELFPAY ==
[2021-09-20 11:21] VITALS: BMI 19.8
[2022-11-14] VITALS (17 sets, daily range): BP systolic 165–216; BP diastolic 72–124; PULSE 41–77; RESP 16–20; TEMP 37.1; O2SAT 85–100; BMI 21.6
[2022-11-14 10:21] LABS: Appearance Urine UA CLOUDY; Bilirubin Urine UA 1+ (NEGATIVE); Color Urine UA RED; Glucose Urine UA NEGATIVE (Negative); Ketones Urine UA NEGATIVE (NEGATIVE); Leukocyte Esterase Urine UA TRACE (NEGATIVE); Nitrite Urine UA NEGATIVE (Negative); Occult Blood Urine UA 3+ (Negative); Protein Urine UA 2+ (Negative); Specific Gravity Urine UA 1.025 (1.000-1.035); pH Urine UA 5.5 (4.5-8.0)
[2022-11-14 10:24] LABS: Ictotest Urine Negative (Negative)
[2022-11-14 10:27] LABS: Bacteria Urine None Seen; Culture Indicated Urine Specimen Cultured; RBC Urine >100/HPF (0-5/HPF); Squamous Epithelial Cell Urine 1-5 /HPF (0-5/HPF); WBC Urine 5-10/HPF (0-5/HPF)
--- NOTE | 2022-11-14 10:38 | DI.CT.S_ITS ---
PROCEDURE: CT KIDNEY URETER BLADDER (KUB) INDICATIONS: R sided flank pain eval for appy or stone TECHNIQUE: Axial sections were acquired from the lung bases to the pubic symphysis. Coronal and sagittal reformats were performed. For radiation dose reduction, the following was used: automated exposure control, adjustment of mA and/or kV according to patient size. COMPARISON: None. FINDINGS: Lower thorax: The lung bases are clear. Heart size normal. No hiatal hernia. Liver: Normal in size and attenuation. No contour deformity present. Biliary system: No calcified cholelithiasis or pericholecystic inflammation. No intra or extrahepatic bile duct dilatation. Pancreas: Unremarkable without mass or inflammation evident. Spleen: Normal in size and density. Adrenals: Normal morphology and density. Reproductive system: Unremarkable as visualized. Urinary system: Moderate right hydronephrosis and hydroureter without obstructing calculus. There are several nonobstructing calculi in the right kidney measuring up to 6 mm, and right perinephric stranding. Nonobstructing left renal calculi are also present measuring up to 2 mm. No left-sided hydronephrosis or hydroureter. Several calculi present within the lumen of the bladder as well measuring up to 9 mm. Prostate unremarkable. Gastrointestinal system: The bowel is unremarkable without evidence of bowel obstruction or inflammation. The stomach appears unremarkable. Multiple diverticula arise from the sigmoid colon without evidence of diverticulitis. Moderate fecal debris in the colon. Appendix: Normal appendix identified. No evidence of appendicitis. Peritoneal spaces: No mesenteric or retroperitoneal adenopathy. No free air. No free fluid. Vasculature: Aortic atherosclerotic vascular calcification noted without evidence of aneurysm. Abdominal wall: Abdominal wall intact without evidence of ventral or inguinal hernias. Musculoskeletal: Normal bone mineralization. Degenerative disc disease and arthropathy noted in lower lumbar spine. No acute fractures. IMPRESSION: 1. Moderate right hydronephrosis and hydroureter without obstructing calculus present. Differential includes recently passed stone and non radiopaque stone. There are several calculi in the bladder as well as a bilateral nonobstructing renal calculi greater on the right. 2. Normal appearing appendix identified. 3. Sigmoid diverticulosis without evidence of diverticulitis. Moderate fecal debris in the rectum and right colon Approved by: Lito Matos M.D. on 11/14/2022 at 10:18
--- NOTE | 2022-11-14 10:39 | ED_ITS ---
HPI - General Adult General Chief complaint: Urogenital-Male Stated complaint: pain back on fire' peeing blood Time Seen by Provider: 11/14/22 10:33 Source: patient Mode of arrival: Wheelchair Limitations: no limitations History of Present Illness HPI narrative: Patient is a 72-year-old male who stated that he woke up this morning and urinated and had a very intense pain in his right side in his right lower quad rant. He states he is having blood in his urine. He did vomit prior to coming in. No change in bowel habits. He states the pain is on his right side of his and is worse with touching. No fevers. He is never had a kidney stone in the past. Still has his appendix. No intervention prior to arrival. Related Data Home Medications Medication Instructions Recorded Confirmed levothyroxine 125 mcg tablet 150 mcg PO DAILY thyroid 09/03/21 10/22/22 sertraline 50 mg tablet 50 mg PO DAILY depression 09/03/21 10/22/22 hydroxyzine HCl 25 mg tablet 25 mg PO QID PRN Itching 05/10/22 05/18/22 lovastatin 40 mg tablet 40 mg PO QPM 05/18/22 05/18/22 metoprolol succinate 25 mg 12.5 mg PO DAILY 10/22/22 10/22/22 tablet,extended release 24 hr Previous Rx's Medication Instructions Recorded clopidogrel 75 mg tablet 75 mg PO DAILY #30 tabs 09/24/21 hydrocodone 10 mg-acetaminophen 1 tab PO Q4HR PRN Pain, Moderate 09/24/21 325 mg tablet (4-6) #20 tabs meclizine 12.5 mg tablet 25 mg PO Q6HR PRN Vertigo #15 tabs 09/24/21 Allergies Allergy/AdvReac Type Severity Reaction Status Date / Time amitriptyline [From Elavil] Allergy Unknown Verified 11/14/22 10:15 Review of Systems Constitutional Constitutional: Reports system reviewed and no additional complaints, except as documented Gastrointestinal Gastrointestinal: Reports system reviewed and no additional complaints, except as documented Genitourinary Genitourinary: Reports system reviewed and no additional complaints, except as documented Integumentary/Breasts Skin/Breast: Reports system reviewed and no additional complaints, except as documented Neurologic Neurologic: Reports system reviewed and no additional complaints, except as documented Hematologic/Lymphatic On Anticoagulants: No Patient History Medical History Cerebrovascular accident Chronic GERD Dementia Hyperlipidemia Hypertension Social History household members: children Smoking Status: Former smoker alcohol intake: current Smoking Status: Former smoker tobacco type: cigarettes alcohol intake frequency: holidays/special occasions only Substance Use Type: marijuana Exam Initial Vital Signs Initial Vital Signs: Vital Signs Temperature 98.8 F 11/14/22 10:12 Pulse Rate 64 11/14/22 10:12 Respiratory Rate 20 11/14/22 10:12 Blood Pressure 189/84 H 11/14/22 10:12 Pulse Oximetry 100 11/14/22 10:12 Oxygen Delivery Method Room Air 11/14/22 10:12 Const General: cooperative, comfortable and No ill appearing HENMT Head: normal to inspection and normocephalic Resp Effort & Inspection: normal respiratory effort Cardio Rate: regular rate GI Inspection: normal to inspection Palpation: soft and tender (Right-sided abdomen) Back/Spine/Pelvis Back: CVA tenderness right Skin General: no rashes or lesions noted Extrem General: normal to inspection and capillary refill normal Course Orders Ordered: ED Orders 11/14/22 10:14 Consult to MAGNETIC TESTING TECHNICIAN - Airport Ramp Supervisor Stat Ictotest Urine Stat Urinalysis and Microscopic Stat Urine Culture Stat 11/14/22 10:38 CT kidney ureter bladder (KUB) Stat 11/14/22 11:48 Complete Blood Count AUTO DIFF Stat Comprehensive Metabolic Panel Stat Lipase Stat Ondansetron HCl (Ondansetron 4 Mg Odt) 4 mg PO NOW PRN PRN Reason: Nausea And Vomiting Ondansetron HCl (Ondansetron 4 Mg/2 Ml Inj) 4 mg IV NOW PRN PRN Reason: Nausea And Vomiting Vital Signs Vital signs: Vital Signs - 8 hr 11/14/22 10:12 Temperature 98.8 F Pulse Rate 64 Respiratory Rate 20 Blood Pressure 189/84 H Pulse Oximetry 100 Oxygen Delivery Method Room Air Medical Decision Making Lab Data Lab results reviewed: Yes I reviewed the patient's lab results. 11/14/22 11:48 11/14/22 11:48 Labs: Lab Results 11/14/22 11/14/22 11/14/22 Range/Units 10:14 11:48 11:48 WBC 6.5 (4.5-11.0) X10^3/uL RBC 3.11 L (4.5-5.9) X10^6/uL Hgb 9.0 L (13.5-17.5) g/dL Hct 27.2 L (41-53) % MCV 87.6 (80-100) fL MCH 28.8 (26-34) PG MCHC 32.9 (30-36) % RDW 14.7 (11.6-14.8) % Plt Count 282 (150-400) X10^3/uL Neut % (Auto) 63.9 (50-75) % Lymph % (Auto) 16.2 L (25-40) % [place] % (Auto) 10.1 (3-14) % Eos % (Auto) 8.3 H (2-4) % Baso % (Auto) 1.5 (0-2) % Neut # (Auto) 4100 (7750-5672) /uL Lymph # (Auto) 1100 (2913-6800) /uL [place] # (Auto) 700 (0-900) /uL Eos # (Auto) 500 H (0-450) /uL Baso # (Auto) 100 (0-100) /uL Sodium 140 (137-145) mmol/L Potassium 4.0 (3.4-5.1) mmol/L Chloride 110 H (98-107) mmol/L Carbon Dioxide 26 (22-32) mmol/L BUN 23 H (9-20) mg/dL Creatinine 0.83 (0.66-1.25) mg/dL Estimated GFR > 60 (>60) mL/min BUN/Creatinine Ratio 27.7 H (6-22) Glucose 100 (80-110) mg/dL Calcium 9.3 (8.4-10.2) mg/dL Total Bilirubin 0.2 (0.2-1.3) mg/dL AST 31 (17-59) IU/L ALT 29 (<50) IU/L Alkaline Phosphatase 233 H (38-126) U/L Total Protein 6.8 (6.3-8.2) g/dL Albumin 3.6 (3.5-5.0) g/dL Globulin 3.2 (1.7-4.1) g/dL Albumin/Globulin Ratio 1.1 (1.0-2.8) Lipase 102 (23-300) U/L Urine Color Red Urine Appearance Cloudy Urine pH 5.5 (4.5-8.0) Ur Specific [place] 1.025 (1.000-1.035) Urine Protein 2+ H (Negative) Urine Glucose (UA) Negative (Negative) g/dL Urine Ketones Negative (NEGATIVE) Urine Occult Blood 3+ H (Negative) Urine Nitrate Negative (Negative) Urine Bilirubin 1+ H (NEGATIVE) Ur Bilirubin Confirm Negative (Negative) Urine Urobilinogen 1.0 (0.2) E.U./dL Ur Leukocyte Esterase Trace H (NEGATIVE) Urine RBC >100/hpf H (0-5/HPF) Urine WBC 5-10/hpf H (0-5/HPF) Ur Squamous Epith Cells 1-5 /hpf (0-5/HPF) Urine Bacteria None seen (None) Ur Culture Indicated? Specimen cultured Imaging Data CT scan - abdomen/pelvis: Radiologist's Impression: PROCEDURE:? CT KIDNEY URETER BLADDER (KUB) ? INDICATIONS:? R sided flank pain eval for appy or stone ? TECHNIQUE:? Axial sections were acquired from the lung bases to the pubic symphysis.? Coronal and sagittal reformats were performed.? For radiation dose reduction, the following was used: ?automated exposure control, adjustment of mA and/or kV according to patient size.? ? COMPARISON:? None. ? FINDINGS: ? Lower thorax: The lung bases are clear.? Heart size normal.? No hiatal hernia. ? Liver:? Normal in size and attenuation. No contour deformity present. ? Biliary system:? No calcified cholelithiasis or pericholecystic inflammation.? No intra or extrahepatic bile duct dilatation. ? Pancreas:? Unremarkable without mass or inflammation evident. ? Spleen:? Normal in size and density. ? Adrenals:? Normal morphology and density. ? Reproductive system:? Unremarkable as visualized. ? Urinary system:? Moderate right hydronephrosis and hydroureter without obstructing calculus.? There are several nonobstructing calculi in the right kidney measuring up to 6 mm, and right perinephric stranding.? Nonobstructing left renal calculi are also present measuring up to 2 mm.? No left-sided hydronephrosis or hydroureter.? Several calculi present within the lumen of the bladder as well measuring up to 9 mm.? Prostate unremarkable. ? Gastrointestinal system:? The bowel is unremarkable without evidence of bowel obstruction or inflammation. The stomach appears unremarkable.? Multiple diverticula arise from the sigmoid colon without evidence of diverticulitis. ? Moderate fecal debris in the colon. ? Appendix:? Normal appendix identified.? No evidence of appendicitis. ? Peritoneal spaces:? No mesenteric or retroperitoneal adenopathy.? No free air.? No free fluid.? ? Vasculature:? Aortic atherosclerotic vascular calcification noted without evidence of aneurysm. ? Abdominal wall:? Abdominal wall intact without evidence of ventral or inguinal hernias. ? Musculoskeletal:? Normal bone mineralization.? Degenerative disc disease and arthropathy noted in lower lumbar spine.? No acute fractures.? ? IMPRESSION: ? 1. Moderate right hydronephrosis and hydroureter without obstructing calculus present.? Differential includes recently passed stone and non radiopaque stone.? There are several calculi in the bladder as well as a bilateral nonobstructing renal calculi greater on the right. ? 2. Normal appearing appendix identified. ? 3. Sigmoid diverticulosis without evidence of diverticulitis.? Moderate fecal debris in the rectum and right colon MDM Narrative Medical decision making narrative: Urinalysis does have some white cells however suspicion is low for urinary tract infection. He does have stones in his bladder noted on the CT scan which is consistent with a most recent passed stone. The rest of his CT scan is unremarkable. I do have low suspicion for ascending infection. We will hold on antibiotics from now. Patient states he does feel somewhat better. Will discharge patient home. He was given return precautions. He expressed understanding and agreement. Discharge Plan Departure Patient Disposition: Home Clinical Impression: Kidney stones Instructions: DI for Kidney Stones Activity Restrictions/Additional Instructions: Your CT scan today looks like you have just recently passed a kidney stone. This is consistent with your presentation today. The stones are in your bladder and you will most likely urinate them out within the next day or so. You do need to stay hydrated. Return to the emergency department for worsening symptoms. Prescriptions: No Action sertraline 50 mg tablet 50 mg PO DAILY levothyroxine 125 mcg tablet 150 mcg PO DAILY meclizine 12.5 mg Tablet 25 mg PO Q6HR PRN (Reason: Vertigo) Qty: 15 0RF clopidogrel 75 mg Tablet 75 mg PO DAILY Qty: 30 0RF hydrocodone-acetaminophen 10-325 mg Tablet 1 tab PO Q4HR PRN (Reason: Pain, Moderate (4-6)) Qty: 20 0RF hydroxyzine HCl 25 mg Tablet 25 mg PO QID PRN (Reason: Itching) lovastatin 40 mg Tablet 40 mg PO QPM metoprolol succinate 25 mg tablet extended release 24 hr 12.5 mg PO DAILY Patient Comments: take 1/2 tablet by mouth once daily Referrals: Charity Georges MD [Primary Care Provider] - Stand Alone Forms: Patient Portal/API
[2022-11-14 11:55] LABS: Add Manual Diff / Slide Review NO; Basophils Absolute Auto 100 /uL (0-100); Basophils Percent Auto 1.5 % (0-2); Eosinophils Absolute Auto 500 /uL (0-450); Eosinophils Percent Auto 8.3 % (2-4); Hematocrit 27.2 % (41-53); Lymphocytes Absolute Auto 1100 /uL (1100-4500); Lymphocytes Percent Auto 16.2 % (25-40); Mean Corpuscular HGB Conc 32.9 % (30-36); Mean Corpuscular Hemoglobin 28.8 PG (26-34); Mean Corpuscular Volume 87.6 fL (80-100); Monocytes Absolute Auto 700 /uL (0-900); Monocytes Percent Auto 10.1 % (3-14); Neutrophils Absolute Auto 4100 /uL (1500-7000); Neutrophils Percent Auto 63.9 % (50-75); Platelet Count 282 X10^3/uL (150-400); Red Blood Cell Count 3.11 X10^6/uL (4.5-5.9); Red Cell Distribution Width 14.7 % (11.6-14.8); White Blood Cell Count 6.5 X10^3/uL (4.5-11.0)
[2022-11-14 12:09] LABS: Alanine Aminotransferase 29 IU/L (<50); Albumin 3.6 g/dL (3.5-5.0); Albumin Globulin Ratio 1.1 (1.0-2.8); Alkaline Phosphatase 233 U/L (38-126); Aspartate Aminotransferase 31 IU/L (17-59); BUN Creatinine Ratio 27.7 (6-22); Bilirubin Total 0.2 mg/dL (0.2-1.3); Blood Urea Nitrogen 23 mg/dL (9-20); Calcium 9.3 mg/dL (8.4-10.2); Carbon Dioxide 26 mmol/L (22-32); Chloride 110 mmol/L (98-107); Estimated Glomerular Filt Rate > 60 mL/min (>60); Globulin 3.2 g/dL (1.7-4.1); Glucose 100 mg/dL (80-110); HEMOLYSIS < 15 (0-50); Lipase 102 U/L (23-300); Sodium 140 mmol/L (137-145); Total Protein 6.8 g/dL (6.3-8.2)
--- NOTE | 2022-11-14 13:31 | PC.NURSE ---
called son, reports that he will be here at 5pm. pt does not have a perez for the house to get in.
--- NOTE | 2022-11-14 17:16 | PC.NURSE ---
Called patient's son to get an updated eta. Earlier when I called Sudhakar, he said it would be around 5pm. Pt's son updated and said that i will get there as soon as I can. I don't have a timeline. 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 States he is so close to the hospital that he could spit at his father. Pt was requesting that his son would be able to pick him up soon. Pt reports he does not have a house perez to enter the house if he went home on an ambulance.
--- NOTE | 2022-11-14 17:45 | PC.NURSE ---
COSMETIC COUNSELOR Note - Patient was getting frustrated staying in his room. I took the patient around the department in a wheelchair a couple of times, and the patient's mood drastically improved once he got some time outside of his room.
--- NOTE | 2022-11-14 19:28 | PC.NURSE ---
Addendum entered by Alysha Watkins CNA 11/14/22 19:50: GERMÁN note: Called sonSudhakar, at 1950 per patient's request. Sudhakar picked up on 3rd ring. He said he is on his way. 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 I said okay we will see you in 15 minutes. Patient sighed when I said this. Was informed that Dr. Conroy had called the son at 1830. Original Note: GERMÁN note: Attempted to call Sudhakar mckeon, at 1925. Mailbox full. Left a SMS message.
== END 2022-11-14 20:28 | disposition home or self-care (01) ==
PROVIDERS: Emergency Provider Emergency Medicine; PCP Internal Medicine
DX: N20.0 Calculus of kidney (principal); R31.9 Hematuria, unspecified
CPT/HCPCS: 36415; 74176; 80053; 81001; 83690; 85025; 87086; 99283; 99284

== ENCOUNTER 2022-12-08 22:07 | Emergency (ER) | payer OTHER, SELFPAY ==
[2021-09-20 11:21] VITALS: BMI 19.8
[2022-12-08 22:13] VITALS: PULSE 64; O2SAT 99
--- NOTE | 2022-12-08 22:19 | DI.RAD.S_ITS ---
PROCEDURE: XR CHEST 1V INDICATIONS: chest pain TECHNIQUE: One view of the chest was acquired. COMPARISON: [facility], CR, XR CHEST 1V, 10/21/2022, 20:48. FINDINGS: Surgical changes and devices: None. Lungs and pleura: Lungs are hyperexpanded and clear. No pleural effusions or pneumothorax. Mediastinum: Mediastinal contours appear normal. Heart size is normal. Bones and chest wall: No suspicious bony lesions. Overlying soft tissues appear unremarkable. IMPRESSION: No acute cardiopulmonary abnormality. Approved by: Pedro Tong M.D. on 12/08/2022 at 23:34
[2022-12-08 22:24] VITALS: BP 192/91; PULSE 68; RESP 18; TEMP 36.9; O2SAT 100; BMI 17.4
[2022-12-08 22:30] VITALS: PULSE 60; O2SAT 100
[2022-12-08 22:31] VITALS: BP 192/81; PULSE 65; O2SAT 100
[2022-12-08 23:00] VITALS: BP 186/82; PULSE 57; RESP 23; O2SAT 100
[2022-12-08 23:30] VITALS: BP 152/70; PULSE 57; RESP 23; O2SAT 99
[2022-12-08] MEDS: SODIUM CHLORIDE 0.9% 1,000 ML 150 ML IV (23:45)
[2022-12-09] VITALS (35 sets, daily range): BP systolic 123–200; BP diastolic 58–121; PULSE 45–88; RESP 15–34; TEMP 36.6; O2SAT 84–100
[2022-12-09 00:02] LABS: Add Manual Diff / Slide Review NO; Basophils Absolute Auto 100 /uL (0-100); Basophils Percent Auto 1.5 % (0-2); Eosinophils Absolute Auto 500 /uL (0-450); Eosinophils Percent Auto 6.4 % (2-4); Hematocrit 30.1 % (41-53); Hemoglobin 9.9 g/dL (13.5-17.5); Lymphocytes Absolute Auto 1400 /uL (1100-4500); Lymphocytes Percent Auto 18.6 % (25-40); Mean Corpuscular HGB Conc 32.9 % (30-36); Mean Corpuscular Hemoglobin 27.8 PG (26-34); Mean Corpuscular Volume 84.7 fL (80-100); Monocytes Absolute Auto 700 /uL (0-900); Monocytes Percent Auto 8.9 % (3-14); Neutrophils Absolute Auto 5000 /uL (1500-7000); Neutrophils Percent Auto 64.6 % (50-75); Platelet Count 396 X10^3/uL (150-400); Red Blood Cell Count 3.56 X10^6/uL (4.5-5.9); White Blood Cell Count 7.7 X10^3/uL (4.5-11.0)
--- NOTE | 2022-12-09 00:07 | DI.RAD.S_ITS ---
PROCEDURE: XR KNEE RT 3V INDICATIONS: swelling TECHNIQUE: 3 views of the knee were acquired. COMPARISON: None. FINDINGS: Bones: No acute fractures or dislocations. No suspicious bony lesions. Soft tissues: No joint effusion. No suspicious soft tissue calcifications. IMPRESSION: No acute osseous abnormality. If clinical suspicion and/or symptoms persist, additional imaging with repeat plain films, or advanced imaging (e.g. CT, MRI) may be helpful for further assessment. Approved by: Pedro Tong M.D. on 12/09/2022 at 1:27
--- NOTE | 2022-12-09 00:16 | PC.NURSE ---
Addendum entered by Tasia Butler R.N. 12/09/22 00:49: This RN spoke with son on phone who said he is out of town, but will be back by 7am. Son states father is a threat to my and they are working with someone (social media director?) who said to call 911 if they felt threatened. Son expressed that in 2 weeks the father will be going/moving somewhere else. Provider made aware. Original Note: Attempted to reach son regarding father. Left voicemail. No answer.
[2022-12-09 00:27] LABS: Alanine Aminotransferase 27 IU/L (<50); Albumin 4.1 g/dL (3.5-5.0); Albumin Globulin Ratio 1.1 (1.0-2.8); Alkaline Phosphatase 224 U/L (38-126); Aspartate Aminotransferase 27 IU/L (17-59); BUN Creatinine Ratio 23.6 (6-22); Bilirubin Total 0.3 mg/dL (0.2-1.3); Blood Urea Nitrogen 25 mg/dL (9-20); Calcium 9.9 mg/dL (8.4-10.2); Carbon Dioxide 26 mmol/L (22-32); Chloride 108 mmol/L (98-107); Creatine Kinase 58 U/L (55-170); Estimated Glomerular Filt Rate > 60 mL/min (>60); Globulin 3.6 g/dL (1.7-4.1); Glucose 106 mg/dL (80-110); HEMOLYSIS < 15 (0-50); Lipase 130 U/L (23-300); Potassium 3.4 mmol/L (3.4-5.1); Sodium 140 mmol/L (137-145); Total Protein 7.7 g/dL (6.3-8.2); Troponin I < 0.012 ng/mL (0.01-0.034)
[2022-12-09 00:31] LABS: Procalcitonin 0.08 ng/mL (<0.5)
[2022-12-09 00:40] LABS: Lactate (Lactic Acid) 1.3 mmol/L (0.7-2.1)
--- NOTE | 2022-12-09 00:54 | ED.SKABFB ---
HPI - Skin/Abscess/Foreign Bdy General Chief complaint: Skin/Abscess/Foreign Body Stated complaint: dementia- agitation. Time Seen by Provider: 12/08/22 22:18 Source: patient and EMS Mode of arrival: EMS Limitations: altered mental status History of Present Illness HPI narrative: Patient is a 72-year-old male smoker history of hypertension hyperlipidemia, TIA, coronary artery disease, dementia presents today with rash and aggitation. He lives with his son does not get along with [id number] and fell out of bed tonight. Not able to give a full story, possibly increased confusion and agitation. He is noted to have a rash all over his back he denies any pruritus. He reports that it has been there since [place]. Mostly on the back. He denies hitting his head or losing consciousness. He has some right knee pain with bony deformity. Social situation is complicated there previously been restraining orders against the patient by daughter in-law they do not have other help home. Sinus currently away unable to pick him up he was the 1 that did call 911. He will be her in the morning to help get home Related Data Home Medications Medication Instructions Recorded Confirmed levothyroxine 125 mcg tablet 150 mcg PO DAILY thyroid 09/03/21 10/22/22 sertraline 50 mg tablet 50 mg PO DAILY depression 09/03/21 10/22/22 hydroxyzine HCl 25 mg tablet 25 mg PO QID PRN Itching 05/10/22 05/18/22 lovastatin 40 mg tablet 40 mg PO QPM 05/18/22 05/18/22 metoprolol succinate 25 mg 12.5 mg PO DAILY 10/22/22 10/22/22 tablet,extended release 24 hr Previous Rx's Medication Instructions Recorded clopidogrel 75 mg tablet 75 mg PO DAILY #30 tabs 09/24/21 hydrocodone 10 mg-acetaminophen 1 tab PO Q4HR PRN Pain, Moderate 09/24/21 325 mg tablet (4-6) #20 tabs meclizine 12.5 mg tablet 25 mg PO Q6HR PRN Vertigo #15 tabs 09/24/21 cephalexin 500 mg capsule 500 mg PO BID 5 days #10 caps 12/09/22 Allergies Allergy/AdvReac Type Severity Reaction Status Date / Time amitriptyline [From Elavil] Allergy Unknown Verified 12/12/22 21:21 Review of Systems Review of Systems ROS Unobtainable: All systems reviewed & are unremarkable except as noted in HPI and below Patient History Medical History Cerebrovascular accident Chronic GERD Dementia Hyperlipidemia Hypertension Social History household members: children Smoking Status: Former smoker alcohol intake: current Smoking Status: Former smoker tobacco type: cigarettes alcohol intake frequency: holidays/special occasions only Substance Use Type: marijuana Exam Initial Vital Signs Initial Vital Signs: Vital Signs Pulse Rate 64 12/08/22 22:13 Pulse Oximetry 99 12/08/22 22:13 GENERAL: Thin cachectic 72-year-old male HEENT: Head atraumatic,EOMI, pupils reactive, face symmetric, [moist] mucous membranes CARDIOVASCULAR: Regular rate and rhythm without murmurs, rubs or gallops. RESPIRATORY: Breath sounds equal bilaterally, no wheezes rales or rhonchi. ABDOMEN: Soft, nontender. Normoactive bowel sounds all 4 quadrants. No guarding or rebound. EXTREMITIES: Normal range of motion, no clubbing or edema. Neurovascularly intact NEUROLOGICAL: Alert and oriented x2. Moving all extremities no facial droop SKIN: Erythematous hive-like lesions on the back only no fluctuation no induration Course Orders Ordered: Discontinued Medications Hydroxyzine Pamoate (Hydroxyzine Pamoate 25 Mg Capsule) 25 mg PO NOW ONE Stop: 12/09/22 01:58 Last Admin: 12/09/22 02:15 Dose: 25 mg Documented By: MARLYN Sodium Chloride (Normal Saline 0.9%) 1,000 mls @ 150 mls/hr IV CONT NAYELY Last Infusion: 12/09/22 12:00 Dose: 0 mls/hr Documented By: Admin: 12/09/22 07:30 Dose: 150 mls/hr Documented By: Infusion: 12/09/22 06:26 Dose: 150 mls/hr Documented By: Admin: 12/08/22 23:45 Dose: 150 mls/hr Documented By: SB Ceftriaxone Sodium 1,000 mg/ (Sodium Chloride) 100 mls @ 200 mls/hr IV NOW ONE Stop: 12/09/22 04:20 Last Infusion: 12/09/22 05:11 Dose: 0 mls/hr Documented By: Admin: 12/09/22 04:41 Dose: 200 mls/hr Documented By: MARLYN Methylprednisolone (Methylprednisolone 125 Mg/2 Ml Vial) 125 mg IV NOW ONE Stop: 12/09/22 01:58 Last Admin: 12/09/22 02:15 Dose: 125 mg Documented By: MARLYN Metoprolol Tartrate (Metoprolol Ir 25 Mg Tablet) 25 mg PO NOW ONE Stop: 12/09/22 01:58 Last Admin: 12/09/22 02:15 Dose: 25 mg Documented By: MARLYN Vital Signs Vital signs: Vital Signs - 8 hr 12/08/22 23:00 12/08/22 23:00 12/08/22 23:30 Pulse Rate 57 L Respiratory Rate 23 Blood Pressure 186/82 H 152/70 H Pulse Oximetry 100 Oxygen Delivery Method 12/08/22 23:30 12/09/22 00:00 12/09/22 00:00 Pulse Rate 57 L 55 L Respiratory Rate 23 21 Blood Pressure 144/85 H Pulse Oximetry 99 99 Oxygen Delivery Method 12/09/22 00:30 12/09/22 00:30 12/09/22 01:00 Pulse Rate 50 L 62 Respiratory Rate 22 25 H Blood Pressure 154/74 H Pulse Oximetry 99 99 Oxygen Delivery Method 12/09/22 01:01 12/09/22 01:01 12/09/22 01:13 Pulse Rate 59 L Respiratory Rate 26 H Blood Pressure 200/88 H 191/88 H Pulse Oximetry 100 Oxygen Delivery Method 12/09/22 01:13 12/09/22 01:30 12/09/22 01:31 Pulse Rate 71 88 Respiratory Rate 34 H Blood Pressure 187/121 H Pulse Oximetry 99 98 Oxygen Delivery Method Room Air 12/09/22 01:31 12/09/22 02:00 12/09/22 02:01 Pulse Rate 87 52 L Respiratory Rate 31 H Blood Pressure 157/74 H Pulse Oximetry 99 Oxygen Delivery Method Room Air 12/09/22 02:01 12/09/22 02:30 12/09/22 02:31 Pulse Rate 55 L 53 L 51 L Respiratory Rate 24 20 Blood Pressure Pulse Oximetry 84 L 98 98 Oxygen Delivery Method 12/09/22 02:31 12/09/22 03:00 12/09/22 03:01 Pulse Rate 52 L Respiratory Rate 18 Blood Pressure 169/75 H 137/63 Pulse Oximetry 98 Oxygen Delivery Method 12/09/22 03:01 12/09/22 03:30 12/09/22 03:31 Pulse Rate 54 L 48 L Respiratory Rate 25 H 30 H Blood Pressure 156/66 H Pulse Oximetry 98 97 Oxygen Delivery Method 12/09/22 03:31 12/09/22 04:00 12/09/22 04:01 Pulse Rate 49 L 62 Respiratory Rate 20 30 H Blood Pressure 138/73 Pulse Oximetry 98 98 Oxygen Delivery Method 12/09/22 04:30 12/09/22 04:30 12/09/22 05:00 Pulse Rate 50 L Respiratory Rate 31 H Blood Pressure 160/70 H 144/67 H Pulse Oximetry 98 Oxygen Delivery Method 12/09/22 05:00 12/09/22 05:30 12/09/22 05:31 Pulse Rate 53 L 52 L Respiratory Rate 26 H 32 H Blood Pressure 167/72 H Pulse Oximetry 98 99 Oxygen Delivery Method 12/09/22 05:31 Pulse Rate 52 L Respiratory Rate 29 H Blood Pressure Pulse Oximetry 99 Oxygen Delivery Method MDM - Skin/Abscess/Foreign Bdy Lab Data 12/08/22 23:48 12/08/22 23:48 Labs: Lab Results 12/08/22 12/08/22 12/08/22 Range/Units 23:48 23:48 23:48 WBC 7.7 (4.5-11.0) X10^3/uL RBC 3.56 L (4.5-5.9) X10^6/uL Hgb 9.9 L (13.5-17.5) g/dL Hct 30.1 L (41-53) % MCV 84.7 (80-100) fL MCH 27.8 (26-34) PG MCHC 32.9 (30-36) % RDW 15.0 H (11.6-14.8) % Plt Count 396 (150-400) X10^3/uL Neut % (Auto) 64.6 (50-75) % Lymph % (Auto) 18.6 L (25-40) % [place] % (Auto) 8.9 (3-14) % Eos % (Auto) 6.4 H (2-4) % Baso % (Auto) 1.5 (0-2) % Neut # (Auto) 5000 (5095-6471) /uL Lymph # (Auto) 1400 (8497-1908) /uL [place] # (Auto) 700 (0-900) /uL Eos # (Auto) 500 H (0-450) /uL Baso # (Auto) 100 (0-100) /uL Sodium 140 (137-145) mmol/L Potassium 3.4 (3.4-5.1) mmol/L Chloride 108 H (98-107) mmol/L Carbon Dioxide 26 (22-32) mmol/L BUN 25 H (9-20) mg/dL Creatinine 1.06 (0.66-1.25) mg/dL Estimated GFR > 60 (>60) mL/min BUN/Creatinine Ratio 23.6 H (6-22) Glucose 106 (80-110) mg/dL Lactate 1.3 (0.7-2.1) mmol/L Calcium 9.9 (8.4-10.2) mg/dL Total Bilirubin 0.3 (0.2-1.3) mg/dL AST 27 (17-59) IU/L ALT 27 (<50) IU/L Alkaline Phosphatase 224 H (38-126) U/L Total Creatine Kinase 58 (55-170) U/L CK-MB (CK-2) TNP CK-MB (CK-2) Rel Index TNP Troponin I < 0.012 (0.01-0.034) ng/mL Total Protein 7.7 (6.3-8.2) g/dL Albumin 4.1 (3.5-5.0) g/dL Globulin 3.6 (1.7-4.1) g/dL Albumin/Globulin Ratio 1.1 (1.0-2.8) Lipase 130 (23-300) U/L Procalcitonin (<0.5) ng/mL Ur Bilirubin Confirm (Negative) Urine RBC (0-5/HPF) Urine WBC (0-5/HPF) Ur Squamous Epith Cells (0-5/HPF) Urine Bacteria (None) Urine Mucus (Negative) 12/08/22 12/09/22 12/09/22 Range/Units 23:48 01:09 01:09 WBC (4.5-11.0) X10^3/uL RBC (4.5-5.9) X10^6/uL Hgb (13.5-17.5) g/dL Hct (41-53) % MCV (80-100) fL MCH (26-34) PG MCHC (30-36) % RDW (11.6-14.8) % Plt Count (150-400) X10^3/uL Neut % (Auto) (50-75) % Lymph % (Auto) (25-40) % [place] % (Auto) (3-14) % Eos % (Auto) (2-4) % Baso % (Auto) (0-2) % Neut # (Auto) (7930-1577) /uL Lymph # (Auto) (8677-2232) /uL [place] # (Auto) (0-900) /uL Eos # (Auto) (0-450) /uL Baso # (Auto) (0-100) /uL Sodium (137-145) mmol/L Potassium (3.4-5.1) mmol/L Chloride (98-107) mmol/L Carbon Dioxide (22-32) mmol/L BUN (9-20) mg/dL Creatinine (0.66-1.25) mg/dL Estimated GFR (>60) mL/min BUN/Creatinine Ratio (6-22) Glucose (80-110) mg/dL Lactate (0.7-2.1) mmol/L Calcium (8.4-10.2) mg/dL Total Bilirubin (0.2-1.3) mg/dL AST (17-59) IU/L ALT (<50) IU/L Alkaline Phosphatase (38-126) U/L Total Creatine Kinase (55-170) U/L CK-MB (CK-2) CK-MB (CK-2) Rel Index Troponin I (0.01-0.034) ng/mL Total Protein (6.3-8.2) g/dL Albumin (3.5-5.0) g/dL Globulin (1.7-4.1) g/dL Albumin/Globulin Ratio (1.0-2.8) Lipase (23-300) U/L Procalcitonin 0.08 (<0.5) ng/mL Ur Bilirubin Confirm Negative (Negative) Urine RBC None seen (0-5/HPF) Urine WBC 5-10/hpf H (0-5/HPF) Ur Squamous Epith Cells 1-5 /hpf (0-5/HPF) Urine Bacteria Moderate (10-30) H (None) Urine Mucus 1+ H (Negative) Urine Dip Bedside Urine Glucose Negative Bedside Urine Bilirubin + 1 Bedside Urine Ketone - Negative Urine Specific [place] 1.025 Bedside Urine Occult Blood - Negative Bedside Urine pH 6.0 Bedside Urine Protein - Negative Bedside Urine Urobilinogen - Negative Bedside Urine Nitrite - Negative Bedside Urine Leukocytes +/- 15 Esterase Imaging Data Chest x-ray: Radiologist's Impression: PROCEDURE:? XR CHEST 1V ? INDICATIONS:? chest pain ? TECHNIQUE:? One view of the chest was acquired.? ? COMPARISON:? [facility], , XR CHEST 1V, 10/21/2022, 20:48. ? FINDINGS:? ? Surgical changes and devices:? None.? ? Lungs and pleura:? Lungs are hyperexpanded and clear.? No pleural effusions or pneumothorax.? ? Mediastinum:? Mediastinal contours appear normal.? Heart size is normal.? ? Bones and chest wall:? No suspicious bony lesions.? Overlying soft tissues appear unremarkable.? ? IMPRESSION:? No acute cardiopulmonary abnormality. ? ? ? Approved by: Pedro Tong M.D. on 12/08/2022 at 23:34? Extremity x-ray #1: Radiologist's Impression: PROCEDURE:? XR KNEE RT 3V ? INDICATIONS:? swelling ? TECHNIQUE:? 3 views of the knee were acquired.? ? COMPARISON:? None. ? FINDINGS:? ? Bones:? No acute fractures or dislocations.? No suspicious bony lesions.? ? Soft tissues:? No joint effusion.? No suspicious soft tissue calcifications.? ? IMPRESSION:? No acute osseous abnormality.? If clinical suspicion and/or symptoms persist, additional imaging with repeat plain films, or advanced imaging (e.g. CT, MRI) may be helpful for further assessment. ? ? ? Approved by: Pedro Tong M.D. on 12/09/2022 at 1:27? ECG Data Interpretation: Sinus rhythm rate 51 CT interval 140 QRS [address] changes no T-wave inversions EKG 2. Sinus rhythm rate [address] changes similar to prior MDM Narrative Medical decision making narrative: Patient is 72-year-old male presenting today with dementia agitation and rash. It sounds as though the rashes been there for a while. He has hydroxyzine denies medication he is given Solu-Medrol and hydroxyzine to help. This does not appear infectious or cellulitic in nature. He is no leukocytosis or fever. Blood cultures are pending but I suspect they will be negative. Unclear if this rash is acute or chronic. No significant electrolyte abnormality or MARTELL, troponin is also negative. Urinalysis positive for bacteria and leukocytes he is given a dose of Rocephin here in the ED. No sinus appear sepsis. His mildly confused but not combative overall cooperative. He is sleeping. The son has been contacted he is currently out of town he will be in town in the morning. At this time patient does not meet any kind of admission criteria we have explained to the son that he needs to be picking up his father. Apparently in 2 weeks patient is going be placed in a home some sort. He was complaining of some right knee pain there was a bony abnormality not mentioned on the x-ray report x-rays negative. Patient signed out to Dr. Singleton, awaiting tack picker from son and further disposition Discharge Plan Departure Patient Disposition: Home Clinical Impression: Dementia, Urticaria, Acute UTI Instructions: DI for Urinary Tract Infection (UTI), DI for Hives Activity Restrictions/Additional Instructions: *You have been diagnosed with UTI *What to do: At this time you have a very mild bladder infection may or may not be causing some of your symptoms. *Continue to take medications as directed Keflex 500 mg twice a day for 5 days--> [facility] *Follow up with your primary care provider in 2-3 days or call [phone] *Return to ER if you should have increased confusion combativeness [or] any new, worsening or concerning symptoms Prescriptions: New cephalexin 500 mg capsule 500 mg PO BID 5 Days Qty: 10 0RF No Action sertraline 50 mg tablet 50 mg PO DAILY levothyroxine 125 mcg tablet 150 mcg PO DAILY meclizine 12.5 mg Tablet 25 mg PO Q6HR PRN (Reason: Vertigo) Qty: 15 0RF clopidogrel 75 mg Tablet 75 mg PO DAILY Qty: 30 0RF hydrocodone-acetaminophen 10-325 mg Tablet 1 tab PO Q4HR PRN (Reason: Pain, Moderate (4-6)) Qty: 20 0RF hydroxyzine HCl 25 mg Tablet 25 mg PO QID PRN (Reason: Itching) lovastatin 40 mg Tablet 40 mg PO QPM metoprolol succinate 25 mg tablet extended release 24 hr 12.5 mg PO DAILY Patient Comments: take 1/2 tablet by mouth once daily Referrals: Charity Georges MD [Primary Care Provider] - Stand Alone Forms: Patient Portal/API
[2022-12-09 01:18] LABS: Ictotest Urine Negative (Negative)
[2022-12-09 01:22] LABS: Bacteria Urine Moderate (10-30); Mucus Urine 1+ (Negative); RBC Urine None Seen (0-5/HPF); Squamous Epithelial Cell Urine 1-5 /HPF (0-5/HPF); WBC Urine 5-10/HPF (0-5/HPF)
[2022-12-09] MEDS: METOPROLOL IR 25 MG TABLET PO (02:15)
[2022-12-09] MEDS: hydrOXYzine pamoate 25 MG CAPSULE PO (02:15)
[2022-12-09] MEDS: methylPREDNISolone 125 MG/2 ML VIAL IV (02:15)
[2022-12-09] MEDS: cefTRIAXone 1,000 MG in SODIUM CHLORIDE 0.9% 100 ML 200 MG IV (04:41)
--- NOTE | 2022-12-09 05:19 | PC.NURSE ---
TRACK MAN note: Asked patient how he ambulated, if he wanted to get up on the side of the bed and walk a bit. Patient said he didn't walk. When I asked how he got around the house, he said his son lifts him up and puts him in a wheelchair. I asked if he had a walker and did that. He said he did but he didn't use it and didn't do good with it. Told Dr. Kulkarni this.
--- NOTE | 2022-12-09 06:29 | PC.NURSE ---
COMMERCIAL MANAGER note: Called patient's son, Sudhakar, left a message. Said patient is ready to be discharged and to please call us back so we can start working that out. Left our phone number.
--- NOTE | 2022-12-09 07:19 | PC.NURSE ---
traffic or system dispatcher called son at [phone] and left a message about needing someone to pick patient up
[2022-12-09] MEDS: SODIUM CHLORIDE 0.9% 1,000 ML 150 ML IV (07:30)
--- NOTE | 2022-12-09 08:46 | PC.NURSE ---
This RN called son Gareth Cotter at phone number of file to come and pickup his father. Per nurse report son was expected to be here at 7am this morning.
--- NOTE | 2022-12-09 09:50 | PC.NURSE ---
This RN called [facility] department non immanent dispatch line to perform a welfare check on patient son and daughter in law at listed address in chart. Per previous chart note son was expected to arrive here at 7am to pickup his father.
--- NOTE | 2022-12-09 10:01 | PC.NURSE ---
[place] police department called back this RN and said that they were able to get the son to answer the phone. Officer stated that son was having trouble coming to get him but working on doing so without definitive time but stated son said he hopes in the next couple of hours.
== END 2022-12-09 12:08 | disposition home or self-care (01) ==
PROVIDERS: Emergency Provider Emergency Medicine; PCP Internal Medicine
DX: N39.0 Urinary tract infection, site not specified (principal); R07.9 Chest pain, unspecified; L50.9 Urticaria, unspecified; F03.90 Unspecified dementia, unspecified severity, without behavioral disturbance, psychotic disturbance, mood disturbance, and anxiety
CPT/HCPCS: 36415; 71045; 73562; 80053; 81003; 81015; 82550; 82553; 83605; 83690; 84145; 84484; 85025; 87040; 87086; 93005; 93010; 96365; 96375; 99284; J0696; J2930

== ENCOUNTER 2022-12-12 21:12 | Observation (INO) | payer OTHER, MEDICAID, SELFPAY ==
[2021-09-20 11:21] VITALS: BMI 19.8
[2022-12-12] VITALS (8 sets, daily range): BP systolic 164–178; BP diastolic 80–84; PULSE 59–68; RESP 18–23; TEMP 36.7; O2SAT 95–99
--- NOTE | 2022-12-12 21:16 | DI.CT.S_ITS ---
PROCEDURE: CT HEAD/BRAIN WO CON INDICATIONS: Reported slurred speech TECHNIQUE: Noncontrast 4.5 mm thick angled axial sections acquired from the foramen magnum to the vertex, with coronal and sagittal reformats. For radiation dose reduction, the following was used: automated exposure control, adjustment of mA and/or kV according to patient size. COMPARISON: [facility], CT, CT HEAD/BRAIN WO CON, 10/21/2022, 20:51. [facility], CT, CT HEAD/BRAIN WO CON, 02/25/2022, 14:47. FINDINGS: Image quality: Excellent. CSF spaces: Basal cisterns are patent. No extra-axial fluid collections. The ventricles are symmetric in size and shape. Brain: No acute intracranial hemorrhage or mass effect. There is cerebral volume loss for age, with resultant ventricular and sulcal prominence. There are marked periventricular and deep white matter chronic small vessel ischemic changes. Small chronic lacunar infarcts in the left centrum semiovale and right genu of the corpus callosum. There is intracranial internal carotid artery atherosclerosis. Skull and face: Calvarium and visualized facial bones appear intact, without suspicious lesions. Sinuses: Opacification of the left maxillary and frontal sinuses is again seen with sinus wall thickening. IMPRESSION: 1. No acute intracranial abnormality. If there is clinical concern for stroke, consider MRI of the brain for further evaluation. 2. Stable advanced chronic microvascular ischemic changes and generalized parenchymal volume loss. 3. Chronic paranasal sinus disease. Approved by: Pedro Tong M.D. on 12/12/2022 at 22:27
[2022-12-12 21:23] LABS: Add Manual Diff / Slide Review NO; Basophils Absolute Auto 100 /uL (0-100); Basophils Percent Auto 1.2 % (0-2); Eosinophils Absolute Auto 1000 /uL (0-450); Eosinophils Percent Auto 15.5 % (2-4); Hematocrit 29.9 % (41-53); Hemoglobin 9.8 g/dL (13.5-17.5); Lymphocytes Absolute Auto 1600 /uL (1100-4500); Lymphocytes Percent Auto 23.2 % (25-40); Mean Corpuscular HGB Conc 32.9 % (30-36); Mean Corpuscular Hemoglobin 27.9 PG (26-34); Mean Corpuscular Volume 84.7 fL (80-100); Monocytes Absolute Auto 600 /uL (0-900); Monocytes Percent Auto 9.4 % (3-14); Neutrophils Absolute Auto 3400 /uL (1500-7000); Neutrophils Percent Auto 50.7 % (50-75); Platelet Count 342 X10^3/uL (150-400); Red Blood Cell Count 3.53 X10^6/uL (4.5-5.9); Red Cell Distribution Width 14.7 % (11.6-14.8); White Blood Cell Count 6.7 X10^3/uL (4.5-11.0)
[2022-12-12 21:37] LABS: Alanine Aminotransferase 54 IU/L (<50); Albumin Globulin Ratio 1.1 (1.0-2.8); Alkaline Phosphatase 293 U/L (38-126); Aspartate Aminotransferase 61 IU/L (17-59); BUN Creatinine Ratio 29.1 (6-22); Bilirubin Total 0.4 mg/dL (0.2-1.3); Blood Urea Nitrogen 23 mg/dL (9-20); Calcium 9.7 mg/dL (8.4-10.2); Carbon Dioxide 26 mmol/L (22-32); Chloride 108 mmol/L (98-107); Estimated Glomerular Filt Rate > 60 mL/min (>60); Ethanol (ETOH) < 10 mg/dL; Globulin 3.5 g/dL (1.7-4.1); Glucose 98 mg/dL (80-110); HEMOLYSIS < 15 (0-50); Lipase 126 U/L (23-300); Potassium 3.1 mmol/L (3.4-5.1); Sodium 141 mmol/L (137-145); Total Protein 7.5 g/dL (6.3-8.2)
--- NOTE | 2022-12-12 21:37 | PC.NURSE ---
Addendum entered by Moriah Gerard R.N. 12/13/22 00:12: Patient able to make needs known. Gave patient cup of water, stated that's not enough. Educated patient that is the size of the cup we have, patient stated then I'll need 3 of these because I'll be done with this quickly. Original Note: Performed full skin check with student nurse Camilla. Checked sacrum and heels for skin breakdown, no areas of pressure noted. Patient had full brief with dried stool but no skin breakdown from this. Did have an area of potential pressure on right outer knee and other various small skin wounds on upper extremities. During rosita care and turning patient, patient became combative and attempted to pinch this RN. Set boundaries with patient that he will not be aggressive or pinch staff.
--- NOTE | 2022-12-12 22:40 | ED_ITS ---
HPI - General Adult General Chief complaint: Weakness Stated complaint: weakness slurred speech Time Seen by Provider: 12/12/22 21:15 Source: patient and EMS Mode of arrival: EMS History of Present Illness HPI narrative: Patient is a 72-year-old male. Well to myself in this emergency department. He was brought in by EMS for what was initially described as weakness and slurred speech. Apparently was the patient's son who contacted EMS. Patient states that he also had some chest discomfort and back discomfort. He denies any headaches. No problems breathing. No abdominal pain. No falls. Related Data Home Medications Medication Instructions Recorded Confirmed levothyroxine 125 mcg tablet 150 mcg PO DAILY thyroid 09/03/21 10/22/22 sertraline 50 mg tablet 50 mg PO DAILY depression 09/03/21 10/22/22 hydroxyzine HCl 25 mg tablet 25 mg PO QID PRN Itching 05/10/22 05/18/22 lovastatin 40 mg tablet 40 mg PO QPM 05/18/22 05/18/22 metoprolol succinate 25 mg 12.5 mg PO DAILY 10/22/22 10/22/22 tablet,extended release 24 hr Previous Rx's Medication Instructions Recorded clopidogrel 75 mg tablet 75 mg PO DAILY #30 tabs 09/24/21 hydrocodone 10 mg-acetaminophen 1 tab PO Q4HR PRN Pain, Moderate 09/24/21 325 mg tablet (4-6) #20 tabs meclizine 12.5 mg tablet 25 mg PO Q6HR PRN Vertigo #15 tabs 09/24/21 cephalexin 500 mg capsule 500 mg PO BID 5 days #10 caps 12/09/22 Allergies Allergy/AdvReac Type Severity Reaction Status Date / Time amitriptyline [From Elavil] Allergy Unknown Verified 12/12/22 21:21 Review of Systems Constitutional Constitutional: Reports system reviewed and no additional complaints, except as documented Cardiovascular Cardiovascular: Reports system reviewed and no additional complaints, except as documented Respiratory Respiratory: Reports system reviewed and no additional complaints, except as documented Gastrointestinal Gastrointestinal: Reports system reviewed and no additional complaints, except as documented Musculoskeletal Musculoskeletal: Reports system reviewed and no additional complaints, except as documented Neurologic Neurologic: Reports system reviewed and no additional complaints, except as documented Patient History Medical History Cerebrovascular accident Chronic GERD Dementia Hyperlipidemia Hypertension Social History household members: children Smoking Status: Former smoker alcohol intake: current Smoking Status: Former smoker tobacco type: cigarettes alcohol intake frequency: holidays/special occasions only Substance Use Type: marijuana Exam Initial Vital Signs Initial Vital Signs: Vital Signs Pulse Rate 62 12/12/22 21:19 Pulse Oximetry 98 12/12/22 21:19 Const General: cooperative HENMT Head: normal to inspection and normocephalic Chest Chest: No crepitus and No tenderness Resp Effort & Inspection: normal respiratory effort Auscultation: clear to auscultation bilaterally Cardio Rate: regular rate GI Inspection: normal to inspection and non-distended Skin General: no rashes or lesions noted Neuro General: patient alert, patient awake and moves all extremities Speech: speech normal Extrem General: No edema Course Orders Ordered: Sodium Chloride (Normal Saline 0.9%) 1,000 mls @ 125 mls/hr IV CONT NAYELY Last Admin: 12/12/22 22:28 Dose: Not Given Documented By: MALCOM Vital Signs Vital signs: Vital Signs - 8 hr 12/13/22 00:00 12/13/22 00:30 12/13/22 01:00 Pulse Rate 66 70 71 Respiratory Rate 21 19 24 Pulse Oximetry 99 99 100 Medical Decision Making Medical Records Medical records reviewed: Yes I reviewed the patient's medical records. Lab Data Lab results reviewed: Yes I reviewed the patient's lab results. 12/12/22 21:15 12/12/22 21:15 Labs: Lab Results 12/12/22 12/12/22 12/12/22 Range/Units 21:15 21:15 21:15 WBC 6.7 (4.5-11.0) X10^3/uL RBC 3.53 L (4.5-5.9) X10^6/uL Hgb 9.8 L (13.5-17.5) g/dL Hct 29.9 L (41-53) % MCV 84.7 (80-100) fL MCH 27.9 (26-34) PG MCHC 32.9 (30-36) % RDW 14.7 (11.6-14.8) % Plt Count 342 (150-400) X10^3/uL Neut % (Auto) 50.7 (50-75) % Lymph % (Auto) 23.2 L (25-40) % Tyrrell % (Auto) 9.4 (3-14) % Eos % (Auto) 15.5 H (2-4) % Baso % (Auto) 1.2 (0-2) % Neut # (Auto) 3400 (9075-3686) /uL Lymph # (Auto) 1600 (3538-6337) /uL Tyrrell # (Auto) 600 (0-900) /uL Eos # (Auto) 1000 H (0-450) /uL Baso # (Auto) 100 (0-100) /uL Sodium 141 (137-145) mmol/L Potassium 3.1 L (3.4-5.1) mmol/L Chloride 108 H (98-107) mmol/L Carbon Dioxide 26 (22-32) mmol/L BUN 23 H (9-20) mg/dL Creatinine 0.79 (0.66-1.25) mg/dL Estimated GFR > 60 (>60) mL/min BUN/Creatinine Ratio 29.1 H (6-22) Glucose 98 (80-110) mg/dL Calcium 9.7 (8.4-10.2) mg/dL Total Bilirubin 0.4 (0.2-1.3) mg/dL AST 61 H (17-59) IU/L ALT 54 H (<50) IU/L Alkaline Phosphatase 293 H (38-126) U/L Total Creatine Kinase 139 (55-170) U/L CK-MB (CK-2) TNP CK-MB (CK-2) Rel Index TNP Troponin I < 0.012 (0.01-0.034) ng/mL Total Protein 7.5 (6.3-8.2) g/dL Albumin 4.0 (3.5-5.0) g/dL Globulin 3.5 (1.7-4.1) g/dL Albumin/Globulin Ratio 1.1 (1.0-2.8) Lipase 126 (23-300) U/L Ethyl Alcohol < 10 ( - 10) mg/dL Imaging Data CT scan - head: Radiologist's Impression: PROCEDURE:? CT HEAD/BRAIN WO CON ? INDICATIONS:? Reported slurred speech ? TECHNIQUE:? Noncontrast 4.5 mm thick angled axial sections acquired from the foramen magnum to the vertex, with coronal and sagittal reformats.? For radiation dose reduction, the following was used:? automated exposure control, adjustment of mA and/or kV according to patient size.? ? COMPARISON:? [facility], CT, CT HEAD/BRAIN WO CON, 10/21/2022, 20:51.? [facility], CT, CT HEAD/BRAIN WO CON, 02/25/2022, 14:47. ? FINDINGS:? Image quality:? Excellent.? ? CSF spaces:? Basal cisterns are patent.? No extra-axial fluid collections.? The ventricles are symmetric in size and shape.? ? Brain:? No acute intracranial hemorrhage or mass effect.? There is cerebral volume loss for age, with resultant ventricular and sulcal prominence.? There are marked periventricular and deep white matter chronic small vessel ischemic changes.? Small chronic lacunar infarcts in the left centrum semiovale and right genu of the corpus callosum.? There is intracranial internal carotid artery atherosclerosis.? ? Skull and face:? Calvarium and visualized facial bones appear intact, without suspicious lesions.? ? Sinuses:? Opacification of the left maxillary and frontal sinuses is again seen with sinus wall thickening. ? IMPRESSION:? 1. No acute intracranial abnormality.? If there is clinical concern for stroke, consider MRI of the brain for further evaluation. 2. Stable advanced chronic microvascular ischemic changes and generalized parenchymal volume loss. 3. Chronic paranasal sinus disease.? ECG Data Attestation: I personally reviewed and interpreted this ECG as follows: Prior ECG tracings: available for review Interpretation: Sinus rhythm Ventricular rate is 65 Normal axis Normal QRS Normal QTC Nonspecific ST T wave changes Unchanged from prior EKGs MDM Narrative Medical decision making narrative: I do not appreciate any slurring of his words. He would is at his baseline mental status per my prior interactions with him. Since CT is unremarkable. His EKG lab work unremarkable as well. Low suspicion for ACS. Will discharge patient. A continue to take all of his medications as directed. He was given return precautions Discharge Plan Departure Patient Disposition: Home Clinical Impression: Weakness Instructions: DI for Muscle Weakness Activity Restrictions/Additional Instructions: You can continue to take all of your medications as directed. Contact your primary doctor for follow-up. Return in the emergency department for new or worsening symptoms. Prescriptions: No Action sertraline 50 mg tablet 50 mg PO DAILY levothyroxine 125 mcg tablet 150 mcg PO DAILY meclizine 12.5 mg Tablet 25 mg PO Q6HR PRN (Reason: Vertigo) Qty: 15 0RF clopidogrel 75 mg Tablet 75 mg PO DAILY Qty: 30 0RF hydrocodone-acetaminophen 10-325 mg Tablet 1 tab PO Q4HR PRN (Reason: Pain, Moderate (4-6)) Qty: 20 0RF hydroxyzine HCl 25 mg Tablet 25 mg PO QID PRN (Reason: Itching) lovastatin 40 mg Tablet 40 mg PO QPM metoprolol succinate 25 mg tablet extended release 24 hr 12.5 mg PO DAILY Patient Comments: take 1/2 tablet by mouth once daily cephalexin 500 mg capsule 500 mg PO BID 5 Days Qty: 10 0RF Referrals: Charity Georges MD [Primary Care Provider] - Stand Alone Forms: Patient Portal/API
[2022-12-12 22:51] LABS: Creatine Kinase 139 U/L (55-170)
[2022-12-12 23:04] LABS: Troponin I < 0.012 ng/mL (0.01-0.034)
[2022-12-13] VITALS (18 sets, daily range): BP systolic 144–165; BP diastolic 69–85; PULSE 55–78; RESP 19–24; O2SAT 95–100
--- NOTE | 2022-12-13 00:58 | PC.NURSE ---
Addendum entered by Alysha Watkins CNA 12/13/22 06:33: 0610 Spoke to [place] dispatch non-emergent number, to do a welfare check on the son. Have been calling since 59 and no response from [facility]. Was told this worked earlier in this week this was used to try to get a hold of son since he doesn't cherry picker operator phone. About 10 minutes later a naval police coxswain called from the [facility] and asked why we needed to do a welfare check. Explained that we had been trying to get a hold of Mr. Cotter's son since 59 and calling every 30ish minutes. Family has a history of not picking him up. Officer said that Gareth is going to a [facility] of 12/25, that the address I had given to do the welfare check Sudhakar cannot be at. Was told to call [phone] or [phone], it's a family friend named Artem (Stefania) and the old man yelled to call him earlier in the week. I asked Mr. Cotter if I could call Stefania to get him home. He said yes. When I attempted both numbers, they were disconnected. Alerted lock setter Gary. Addendum entered by Alysha Watkins CNA 12/13/22 06:10: Called son. Left message. 0610 Addendum entered by Alysha Watkins CNA 12/13/22 05:34: Left message for son. 0532 Addendum entered by Alysha Watkins CNA 12/13/22 05:02: 0502 left message for son Sudhakar. Addendum entered by Alysha Watkins CNA 12/13/22 03:52: 0352 left a message for son Sudhakar. Suggested an ambulance getting him home. Addendum entered by Alysha Watkins CNA 12/13/22 03:22: Called son, Sudhakar, left a message. 0322 Addendum entered by Alysha Watkins CNA 12/13/22 02:22: 0222 Called patient's son, Wander. Stated he would like to go home, and we need him to be picked up and to please call the emergency room. Addendum entered by Alysha Watkins CNA 12/13/22 02:00: Called mike Viramontes, as patient is ready for discharge. Addendum entered by Alysha Watkins CNA 12/13/22 01:41: called [facility] m[facility]on, at 0140 to get patient home. Left message. Patient has been hollering out for staff not using the call light. When we tell him that he needs to use the call light, he responds with you need to be here for me when I need it. Original Note: AUTOMAT CAR ATTENDANT note: Called [facility], to get patient home. Left a message.
--- NOTE | 2022-12-13 13:11 | PC.NURSE ---
son jesús stopped by ER this morning to see his father, he was present for 5min stating he had to leave and get to work. he refused to give his phone number stating he did not want the guideman to get it. said he would stop back by later or call to check in on his dad. was unwilling to stay and speak with the doctor this morning
--- NOTE | 2022-12-13 14:13 | PC.NURSE ---
Attempted to perform swallow screen with pt, pt declines water at this time or other liquids offered. Pt states he just wants ice, provided ice chips to pt and he swallowed / tolerated them well. Pt aware meal tray is available but needs to pass swallow screen prior, pt continues to decline.
--- NOTE | 2022-12-13 15:11 | PC.NURSE ---
pt yelling out please help me god please help someone, anyone doctor. went into room to ask patient what is going on and pt could no longer use his voice to tell me what is wrong. pt whispered he wanted ice chips, pointed to cup at bedside, said ice chips are right here, you can help yourself, pt states he can't do it by himself. informed patient we are busy and it might take a while for someone to come in and be able to feed him. pt given a few ice chips to have. as soon as this nurse left room, pt started yelling again for help.
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
--- NOTE | 2022-12-13 17:30 | CM.MNRNOTE ---
Patient sitting up in bed assisting self to eat requested cereal. Pt is tolerating.
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
--- NOTE | 2022-12-13 21:05 | PC.NURSE ---
Addendum entered by Alysha Watkins CNA 12/14/22 06:22: MULCHER OPERATOR note: 0622 turned patient to his right side per request. Asked for his pillows to be fluffed did so. Addendum entered by Alysha Watkins CNA 12/14/22 05:09: 0500 turned patient to left with pillow between knees. Changed patient's brief which was soiled with urine and a medium sized bowel movement. Put patient's bed alarm on for safety. Addendum entered by Alysha Watkins CNA 12/13/22 22:09: turned patient to left side as he asked. Said his back hurt. Original Note: MULCHER OPERATOR note: Patient gestured for me to come into room. I came in, patient whisper asked for a warm blanket. I checked his brief. Patient was dry. Adjusted patient's bed for comfort. Gave him warm blankets.
[2022-12-13] MEDS: METOPROLOL ER 25 MG TABLET 12.5 MG PO (21:27)
[2022-12-13] MEDS: SERTRALINE 50 MG TABLET PO (21:28)
[2022-12-13] MEDS: ACETAMINOPHEN 325 MG TABLET 650 MG PO (21:28)
[2022-12-13] MEDS: CLOPIDOGREL 75 MG TABLET PO (21:28)
[2022-12-14] VITALS (7 sets, daily range): BP systolic 139–150; BP diastolic 70–92; PULSE 58–77; RESP 16–18; TEMP 36.6–36.8; O2SAT 97–99; BMI 18.0
[2022-12-14] MEDS: LEVOTHYROXINE 75 MCG TABLET 150 MCG PO (06:45)
[2022-12-14 08:27] LABS: Add Manual Diff / Slide Review NO; Basophils Absolute Auto 100 /uL (0-100); Basophils Percent Auto 1.5 % (0-2); Eosinophils Absolute Auto 800 /uL (0-450); Eosinophils Percent Auto 12.9 % (2-4); Hematocrit 27.6 % (41-53); Hemoglobin 9.1 g/dL (13.5-17.5); Lymphocytes Absolute Auto 1400 /uL (1100-4500); Lymphocytes Percent Auto 22.5 % (25-40); Mean Corpuscular HGB Conc 32.8 % (30-36); Mean Corpuscular Hemoglobin 27.7 PG (26-34); Mean Corpuscular Volume 84.2 fL (80-100); Monocytes Absolute Auto 500 /uL (0-900); Neutrophils Absolute Auto 3400 /uL (1500-7000); Neutrophils Percent Auto 55.1 % (50-75); Platelet Count 299 X10^3/uL (150-400); Red Blood Cell Count 3.28 X10^6/uL (4.5-5.9); White Blood Cell Count 6.2 X10^3/uL (4.5-11.0)
[2022-12-14 08:39] LABS: BUN Creatinine Ratio 29.3 (6-22); Blood Urea Nitrogen 24 mg/dL (9-20); Calcium 9.1 mg/dL (8.4-10.2); Carbon Dioxide 25 mmol/L (22-32); Chloride 109 mmol/L (98-107); Estimated Glomerular Filt Rate > 60 mL/min (>60); Glucose 97 mg/dL (80-110); HEMOLYSIS < 15 (0-50); Potassium 3.5 mmol/L (3.4-5.1); Sodium 139 mmol/L (137-145)
--- NOTE | 2022-12-14 08:59 | PC.NURSE ---
CELLAR HAND NOTE:pt declined breakfast tray; changed pt brief and provided rosita care w/ GERMÁN mccracken
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
--- NOTE | 2022-12-14 11:56 | PC.NURSE ---
This EARLY CHILDHOOD EDUCATION COORDINATOR delivered Rice Krispies cereal to pt as requested. Elevated the HOB and placed towel across pts chest to catch spillage. pt declined assistance in eating but instructed to use call light for assistance. pt thanked this EARLY CHILDHOOD EDUCATION COORDINATOR.
--- NOTE | 2022-12-14 16:06 | PC.NURSE ---
Assess- Patient is alert and oriented x2, he does have some confusion. Admitted from ER as patient was originally going to go home but does not have family to currently help him. He states that he does not ambulate and when he is at home his son will pick him up to go to the bathroom or he will urinate in a jug. He states to this RN that he use to weigh 155 pounds and now he is down to around 126. His skin has some fungal toe nails, scratches and abrasions to his shins, and bruising to arms. His bottom is red but blanchable. Condom cath placed on patient and he tolerated this well. He understands what this is for. He is incontinent otherwise of stool and urine. Resting comfortably.
--- NOTE | 2022-12-14 16:15 | P.HP_ITS ---
History of Present Illness History of Present Illness Chief complaint: weakness slurred speech Narrative: 72-year-old gentleman with hypertension, hyperlipidemia, dementia, previous stroke with left-sided weakness, coronary artery disease status post stents, depression who was brought into the emergency department on the evening of December 12 with chief complaint of weakness and slurred speech. His son, roxann De La Fuente ontacted EMS and patient was transported into the emergency department. Patient had also been complaining of chest discomfort and back discomfort. He underwent workup inclusive of head CT, EKG, and lab work. All of these were negative. The emergency room doctor plan to discharge the patient. Unfortunately, they were unable to get in contact with the patient's son and he remained in the emergency department. On the morning of December 13, apparently the patient's son presented to the emergency department, stayed for 5 minutes, refused to wait for the physician as he stated he had to go to work, and refused to leave his phone number due to concerns that the police would get his number. I was asked to admit the patient, but he is at baseline and does not appear to meet even observation criteria. I spoke w/Charity, inpatient care mgmt, and was advised that previous efforts at placement were unsuccessful as pt's son would not provide patient's financial information to determine if he can qualify for Medicaid. Per ED ESCALATOR INSTALLER's note, patient's son has brought him to the emergency department 6 times in the last 8 months and has delayed discharge and refused to pick patient up once he has been medically cleared. The emergency department staff attempted to contact the son, Sudhakar on 12 occasions yesterday and could not get in contact. Markos MARADIAGA was also contacted notified the ER staff that the patient's son, Sudhakar is not allowed near his due to a restraining order she has against him. Therefore, he can not return home. He is reportedly presently ?couch surfing?. Ultimately, the ED staff were able to get in touch with the patient's son, Sudhakar at his place of business. He reported that his dad can not stay at friend's houses with him as he would not be welcome. The patient can not return to [facility] home where his is as the is afraid of the patient. Sudhakar reported that the patient gets out of bed, walks around, defecate on himself and bangs on the rosales. It was recommended that the patient's son, Sudhakar, comes and picks up his dad and they stay in a hotel. However, Sudhakar reports he can not afford it. He is estranged from his siblings and reportedly did not have other phone numbers for the social sciences chair to contact. Continued efforts were made to discharge the patient out of the emergency department, but unfortunately they were not successful. I was contacted by the emergency department physician again today regarding admission as she feels the emergency department is not a safe place for him to be given his history of dementia. The hospital network engineer administrator on-call was contacted and apparently approved his admission to the acute care floor as a boarder without medical need. Currently, patient complains only of being thirsty. Reports he feels poorly but has no focal complaints. He is asking for water. He also tells me he would like to be placed in a alf facility. [facility] Medical History Cerebrovascular accident Chronic GERD Dementia Hyperlipidemia Hypertension Social History household members: children Smoking Status: Former smoker alcohol intake: current Meds Home Medications and Allergies Home Medications Medication Instructions Recorded Confirmed Type sertraline 50 mg tablet 50 mg PO DAILY depression 09/03/21 12/13/22 History clopidogrel 75 mg tablet 75 mg PO DAILY #30 tabs 09/24/21 12/13/22 Rx cephalexin 500 mg capsule 500 mg PO BID 5 days #10 caps 12/09/22 12/13/22 Rx levothyroxine 150 mcg tablet 150 mcg PO DAILY 12/13/22 12/13/22 History metoprolol succinate 25 mg 12.5 mg PO DAILY 12/13/22 12/13/22 History tablet,extended release 24 hr Allergies Allergy/AdvReac Type Severity Reaction Status Date / Time amitriptyline [From Elavil] Allergy Unknown Verified 12/12/22 21:21 Review of Systems Review of Systems Narrative: Difficult to obtain review of systems as patient speaks in a very quiet voice and is difficult to understand Exam Vital Signs (past 8 hours): - 12/14/22 10:29 12/14/22 15:52 Temperature 98.2 F Pulse Rate 68 66 Respiratory Rate 16 16 Blood Pressure 150/92 H 140/70 Pulse Oximetry 98 99 Oxygen Delivery Method Room Air Oxygen Flow Rate 0 Oxygen Delivery Method Room Air Oxygen Flow Rate 0 Narrative Exam Narrative: GEN: Elderly male, Alert and oriented x2, no acute distress HEENT: Normocephalic, face symmetric, pupils equal round reactive to light, extraocular movements intact, sclerae anicteric, conjunctiva clear, nares patent, oropharynx reveals an intact soft and hard palate with moist mucous membranes, edentulous NECK: Supple, no lymphadenopathy, thyroid without enlargement or nodularity, carotids no bruits CHEST: Respiratory excursions symmetric, clear to auscultation bilaterally CV: Regular rate and rhythm, no murmurs, rubs, gallops, PMI nondisplaced ABD: Soft, nontender, nondistended, bowel sounds present in all 4 quadrants, no organomegaly or masses appreciated EXTR: Warm, well perfused, no clubbing/cyanosis/edema SKIN: Warm and dry, without rash NEURO: Alert and oriented x2, speaks in a very soft voice, difficult to un derstand PSYCH: Mood and affect are flat, judgment and insight are appropriate based on our conversation, but difficult to fully assess Objective Labs 12/14/22 08:15 12/14/22 08:15 Labs: Laboratory Results - last 24 hr 12/14/22 12/14/22 08:15 08:15 WBC 6.2 RBC 3.28 L Hgb 9.1 L Hct 27.6 L MCV 84.2 MCH 27.7 MCHC 32.8 RDW 15.0 H Plt Count 299 Neut % (Auto) 55.1 Lymph % (Auto) 22.5 L [place] % (Auto) 8.0 Eos % (Auto) 12.9 H Baso % (Auto) 1.5 Neut # (Auto) 3400 Lymph # (Auto) 1400 [place] # (Auto) 500 Eos # (Auto) 800 H Baso # (Auto) 100 Sodium 139 Potassium 3.5 Chloride 109 H Carbon Dioxide 25 BUN 24 H Creatinine 0.82 Estimated GFR > 60 BUN/Creatinine Ratio 29.3 H Glucose 97 Calcium 9.1 Assessment & Plan Assessment & Plan narrative: 1. Unstable discharge for a debilitated elderly male with multiple medical comorbidities Patient is being admitted under observation status while inappropriate disposition is identified. He has no acute, decompensated medical issue, but is chronically weak, debilitated, and quite malnourished. 2. History of stroke with left-sided weakness There is mixed information in the chart about his mobility. One part of the note, his son reported that the patient gets up and moves about the house freely. In another, it stated that the son's is unable to lift him out of bed. Last PT to do an assessment. 3. Coronary artery disease Previous stenting. No acute symptoms. Continue home meds 4. Hypertension He is presently normotensive. Continue usual home meds. 5. Dementia Reported per son. There is no documentation of dementia and prior records. He does appear to have capacity at this time. 6. Depression Continue Zoloft Code status Previously documented DNR DNI Prophylaxis Low Marisa score. This will be reassessed as their reports that he has both ambulatory and requiring lift out of bed. Disposition Unknown Surrogate decision maker: Sudhakar Michele Lb VTE Deep Vein Thrombosis/Pulmonary Embolism Present on Admission: No
[2022-12-14] MEDS: ACETAMINOPHEN 325 MG TABLET 650 MG PO ×2 (16:48→20:32)
[2022-12-14] MEDS: METOPROLOL ER 25 MG TABLET 12.5 MG PO (20:31)
[2022-12-14] MEDS: CLOPIDOGREL 75 MG TABLET PO (20:31)
[2022-12-14] MEDS: QUETIAPINE 25 MG TABLET 12.5 MG PO (20:42)
[2022-12-15] MEDS: LEVOTHYROXINE 75 MCG TABLET 150 MCG PO (06:02)
[2022-12-15 06:41] LABS: Add Manual Diff / Slide Review NO; Basophils Absolute Auto 100 /uL (0-100); Basophils Percent Auto 1.8 % (0-2); Eosinophils Absolute Auto 600 /uL (0-450); Eosinophils Percent Auto 12.3 % (2-4); Hematocrit 25.8 % (41-53); Hemoglobin 8.5 g/dL (13.5-17.5); Lymphocytes Absolute Auto 1100 /uL (1100-4500); Lymphocytes Percent Auto 21.9 % (25-40); Mean Corpuscular HGB Conc 33.2 % (30-36); Mean Corpuscular Hemoglobin 27.7 PG (26-34); Mean Corpuscular Volume 83.6 fL (80-100); Monocytes Absolute Auto 600 /uL (0-900); Monocytes Percent Auto 11.8 % (3-14); Neutrophils Absolute Auto 2600 /uL (1500-7000); Neutrophils Percent Auto 52.2 % (50-75); Platelet Count 259 X10^3/uL (150-400); Red Blood Cell Count 3.08 X10^6/uL (4.5-5.9); Red Cell Distribution Width 15.1 % (11.6-14.8); White Blood Cell Count 5.1 X10^3/uL (4.5-11.0)
[2022-12-15 06:50] LABS: Alanine Aminotransferase 82 IU/L (<50); Albumin 3.2 g/dL (3.5-5.0); Alkaline Phosphatase 271 U/L (38-126); Aspartate Aminotransferase 88 IU/L (17-59); BUN Creatinine Ratio 28.1 (6-22); Bilirubin Total 0.2 mg/dL (0.2-1.3); Blood Urea Nitrogen 25 mg/dL (9-20); Calcium 9.2 mg/dL (8.4-10.2); Carbon Dioxide 25 mmol/L (22-32); Chloride 108 mmol/L (98-107); Estimated Glomerular Filt Rate > 60 mL/min (>60); Globulin 3.1 g/dL (1.7-4.1); Glucose 97 mg/dL (80-110); HEMOLYSIS < 15 (0-50); Potassium 3.7 mmol/L (3.4-5.1); Sodium 138 mmol/L (137-145); Total Protein 6.3 g/dL (6.3-8.2)
[2022-12-15 07:00] VITALS: O2SAT 94
[2022-12-15 08:00] VITALS: BP 148/73; PULSE 64; RESP 17; TEMP 37.1; O2SAT 98
[2022-12-15] MEDS: ACETAMINOPHEN 325 MG TABLET 650 MG PO ×2 (09:22→21:44)
--- NOTE | 2022-12-15 11:52 | PC.NURSE ---
Patient is having a good day today. He has been incontinent of stool x2, he is unable to use the bed dunaway as he states that it hurts his back and he had back surgery. Patient states at home that his son picks him up and takes him to the bathroom. He does not walk. Will ask Dr for a physical therapy order to see how patient moves. He may be able to pivot and use a walker to set on the the bed side commode. Patient is eating better since being here. He ate well at dinner last night and at breakfast. He has no complaints at this time. He did get agitated after getting his rice crispies and stated Where is my fking bowel. This is not appropriate behavior towards the patient tech, if this happens again. Staff will gently remind patient to please treat staff in a respectful manner. Patient has been receptive to all care this morning.
--- NOTE | 2022-12-15 12:49 | PC.NURSE ---
[facility] called to get update on pt- only wanted to know if pt was admitted. Confirmed social admission. They state they have multiple reports and will assign chief investigator and call again. Gave them Acute Care phone number and updated Coordinator.
--- NOTE | 2022-12-15 12:50 | PT-IP ANOTE ---
Received PT orders and completed chart review. Pt is familiar to this press writer from prior admissions. Met with pt briefly to assess his PLOF which pt states is non ambulatory. His son picks him up and carries him to the toilet at baseline. Pt states he is otherwise limited to bed or wheelchair. Pt refused mobility assessment this date. Asked RN to update PT if pt is willing to attempt a transfer. Will hold PT evaluation today and will consider discharging the order if pt continues to refuse.
--- NOTE | 2022-12-15 14:23 | CM.DPC ---
Addendum entered by CHARITY Bradshaw 12/15/22 15:36: ADD: SW attempted to call son at his place of work [phone] and he answered and SW pressed upon him the importance of following through with the financial interview and he states he has spoken with Radha before and he has completed most of the pwk they need but the final information needed is a letter from the [employer] in [place] regarding pt's sale of his home in [place] and son states he has reached out to family friend there and states he will follow up with another call today once he gets off the phone with SW. Son Sudhakar states he also spoke to [facility] worker Juliana today and was updated on the facilities reviewing pt and agreeable to call or tour to confirm he is agreeable with placement for pt there. SW discussed the perez factor being finalizing financials with medicaid or placement will not happen as Medicaid is currently inactive. Son acknowledges understanding. Ryne De La Fuente confirms he has no safe place to discharge pt to at this time due to the restraining order and no finances to pay for motel and one brother is in long term, one does not have a home, and one brother is estranged and refuses to have any contact with the pt. Ryne De La Fuente is in agreement with continuing to maintain contact with SW tomorrow Tues for ongoing coordination and follow through with financial information. BF Original Note: DCP LTC planning Per MD, pt remains medically stable but somnolent and awaiting safe discharge plan. Per PT, pt in October was a max assist with transfers and not ambulatory at baseline and today seems depressed since his prior CVA over a year ago and now limited independence with ADLs. Pt declined working with PT today. JEOVANY spoke to pt's assigned [facility] worker Juliana Spicer ([phone] and email [email or web address]) and she confirms that she completed [facility] LTC assessment and pt currently qualifies for [facility] daily rate $120.87 and she provided a list to pt's son Sudhakar on multiple [facility] that she knew had openings and requested son begin to call facilities as well. Pt also inactive in Medicaid ([id number]) as son needs to complete the financial interview with [facility] to finalize pt qualifying for Medicaid and LTC. [facility] Juliana provided assigned financial worker contact info Radha Schneider [phone] email: [email or web address] but contact number does not work and SW emailed Radha to confirm she is the assigned financial worker or to confirm who is assigned and a good contact number to be able to provide to son to call and complete the finanical interview towards getting pt approved for Medicaid and LTC. [facility] also provided the following AFH list that is considered [facility] rate. [facility] cell- only a female opening. [facility] [phone] [address] [facility]- openings, willing to review. Secure emailed [email or web address] the hospital clinicals and [facility] contact info to request the [facility] assessment. [facility] [address] KAYLYN Parikh- has an opening and willing to review. Secure emailed [email or web address] and provided HCS contact to request [facility] assessment. Savanna linton [facility] Phone: [phone] [facility]: Have a shared room but admissions person in a meeting, left a msg. Viridiana [phone] Cell [phone] [facility]- has an opening and willing to review. Secure emailed clinicals to [email or web address] and provided HCS contact to request [facility]CS assessment. JEOVANY called pt's son at his place of business [employer] [phone] and no answer and mailbox is full and pt's personal cell not working and he has stated it is broken. Plan: JEOVANY to follow closely for confirmation of [facility] financial worker and contact info as well as contacting son/DPSAMUEL Sudhakar at his place of business for discharge planning and above reviews of AFHs that are interested. CHARITY Bradshaw
--- NOTE | 2022-12-15 15:21 | P.PN_ITS ---
Subjective Subjective Interval history: 72-year-old gentleman with hypertension, hyperlipidemia, dementia, previous stroke with left-sided weakness, coronary artery disease status post stents, depression who was brought into the emergency department on the evening of December 12 with chief complaint of weakness and slurred speech.? He was cleared of any acute medical issues, but on due to family psychosocial issues, he is unable to return home. He has no family willing to care for him. Therefore, he was admit sarah for placement. He did express the desire yesterday to go to fci facility. Today, he tells me he was supposed to go to a fci facility in 2 weeks. He reports he has been getting enough to eat at home. He tells me he ate 5 boxes of cereal as well as eggs for breakfast today. He complains that he did not like the emergency room physician he met the 1st evening he came in. He denies any other complaints. Exam Vital Signs (past 8 hours): - 12/14/22 15:52 Temperature 98.2 F Pulse Rate 66 Respiratory Rate 16 Blood Pressure 140/70 Pulse Oximetry 99 Oxygen Flow Rate 0 Oxygen Delivery Method Room Air Oxygen Flow Rate 0 Narrative Exam Narrative: GEN: Alert and oriented x 3, NAD HEENT:NC, Face symmetric, thin with generalized sarcopenia CHEST: Respiratory excursions symmetric, CTAB CV: RRR, no M/R/G ABD: Soft, NT/ND, BT present in all 4 quadrants, no organomegaly or masses EXTR: warm, well perfused, no C/C/E, generalized sarcopenia SKIN: warm and dry, no rash NEURO: Alert and oriented x 3, nonfocal Objective Labs 12/15/22 05:56 12/15/22 05:56 Labs: Laboratory Results - last 24 hr 12/14/22 12/14/22 08:15 08:15 WBC 6.2 RBC 3.28 L Hgb 9.1 L Hct 27.6 L MCV 84.2 MCH 27.7 MCHC 32.8 RDW 15.0 H Plt Count 299 Neut % (Auto) 55.1 Lymph % (Auto) 22.5 L [place] % (Auto) 8.0 Eos % (Auto) 12.9 H Baso % (Auto) 1.5 Neut # (Auto) 3400 Lymph # (Auto) 1400 [place] # (Auto) 500 Eos # (Auto) 800 H Baso # (Auto) 100 Sodium 139 Potassium 3.5 Chloride 109 H Carbon Dioxide 25 BUN 24 H Creatinine 0.82 Estimated GFR > 60 BUN/Creatinine Ratio 29.3 H Glucose 97 Calcium 9.1 PFSH Medical History Cerebrovascular accident Chronic GERD Dementia Hyperlipidemia Hypertension Social History household members: children Smoking Status: Former smoker alcohol intake: current Assessment & Plan Assessment & Plan narrative: 1. Unstable discharge for a debilitated elderly male with multiple medical comorbidities Patient remains here under observation status while an appropriate disposition is identified.? He has no acute, decompensated medical issue, but is chronically weak, debilitated, and quite malnourished. 2. History of stroke with left-sided weakness There is mixed information in the chart about his mobility.? One part of the note, his son reported that the patient gets up and moves about the house freely.? In another, it stated that the son's is unable to lift him out of bed.? He refused to work with PT today. 3. Coronary artery disease Previous stenting.? No acute symptoms.? Continue home meds 4. Hypertension He is presently normotensive.? Continue usual home meds. 5. Dementia Reported per son.? There is no documentation of dementia and prior records.? He does appear to have capacity at this time. 6. Depression Continue Zoloft Code status Previously documented DNR DNI Prophylaxis Marisa Score is 4.? Will add Lovenox Disposition Unknown Surrogate decision maker: Son, Sudhakar Asher VTE Deep Vein Thrombosis/Pulmonary Embolism Present on Admission: No
[2022-12-15] MEDS: SERTRALINE 50 MG TABLET PO (21:44)
[2022-12-15] MEDS: METOPROLOL ER 25 MG TABLET 12.5 MG PO (21:44)
[2022-12-15] MEDS: CLOPIDOGREL 75 MG TABLET PO (21:44)
[2022-12-15] MEDS: QUETIAPINE 25 MG TABLET 12.5 MG PO (21:47)
[2022-12-16 02:01] VITALS: BP 154/76; PULSE 73; RESP 17; TEMP 36.8; O2SAT 99
[2022-12-16] MEDS: LEVOTHYROXINE 75 MCG TABLET 150 MCG PO (05:27)
[2022-12-16 08:00] VITALS: BP 162/81; PULSE 68; RESP 16; TEMP 36.8; O2SAT 97
--- NOTE | 2022-12-16 08:18 | CM.DPNOTE ---
Addendum entered by CHARITY Yadav 12/16/22 11:20: ADD: Received call from Mr Arie Babb, owner consulting engineer of [facility] [employer] cell P [phone], he received referral and would like to arrange a bedside visit with patient. Mr Sargent is willing to consider [facility] right away once patient has in place Encouraged Mr Sargent to come in to see patient when available and he suggested he would be in touch to schedule JW Original Note: DCP Note Received voice message from financial worker Radha Schneider stating the financial interview w/son Shane had been completed November 25. financial worker Radha P [phone] (attempted call back and says phone no longer in use?) The financial portion of patient's Medicaid application is now pending as financial worker Radha waits on family to provide documentation, which is: 1. Proof of a known sale of patient's home in [place] and 2. Proof of a known stinson gift given from patient to mike Garcia anticipates this Medicaid application will get denied if family cannot produce this documentation, as has happened in the past Recommend CM team call [facility] Back End Architect Blaine Krishna P [phone] to glean information re this scenario, which cannot be unique to this patient. CHARITY Mcgill
[2022-12-16] MEDS: ACETAMINOPHEN 325 MG TABLET 650 MG PO ×3 (08:59→21:14)
[2022-12-16 09:00] VITALS: O2SAT 97
--- NOTE | 2022-12-16 12:25 | CM.DPC ---
Addendum entered by Charity Keen R.N. 12/16/22 15:50: CM met with Arie from [facility] and met with patient at the bedside - patient was very happy to talk about potentially going to [facility]. CM talked with Arie after and he was agreeable to accepting the patient to his AFH.... Arie called Juliana franklin case checker with [facility] to let her know he is very interested in this patient.... CM team will email clincal information to Arie today for his review...... CM director Jalyn called Yahir with quality to discuss next steps if son doesn't produce paperwork for state potential gardianship issues.. CM called patients son again and was not able to LVM at this time. Charity Keen RNotolaryngology rep Addendum entered by Charity Keen R.N. 12/16/22 13:44: CM called Wander Cotter again [phone] and this time when I called it said his voice mail was not set up. CM called again and someone answered and stated that Wander was unavailable CM LVM with his coworker to please call CM back that it is in reference to his father. CM will attempt again to call and talk with patients son. CHARITY Gunderson called and LVM with [facility] case checker Juliana [phone] requesting update on financial paperwork and overall update on process. Charity Keen RNfresh food manager Original Note: DCP continued: Mr Muniz from [facility] came by and did bedside assessment yesterday evening. CM called him today and he was not able to see the patient yesterday evening but would like to see him today. Mr. muniz will be here between 3-4 to do assessment with patient. .... CM called Wander Vahe at place of work [phone] - LVM for him... to call CM back to see if he was able to get finacial paperwork from [employer] in [place]... CM team will continue to follow Charity Keen RNotolaryngology rep
--- NOTE | 2022-12-16 13:59 | PT-IP ANOTE ---
PT eval received. EMR reviewed. pt has refused PT eval yesterday. pt at baseline is w/c bound and pt's son assists pt at home. Checked on pt today and pt refused PT. pt is not verbal but signaling PT to go and and was shaking his head. educated pt on PT benefit/risks and pt continues to refuse. asked pt if he wants PT to check this afternoon or tomorrow. Pt refused both. informed social professionals regarding pt's refusals.
--- NOTE | 2022-12-16 15:16 | PM.PN.1 ---
Subjective Subjective Date Patient Seen: 12/16/22 Time Patient Seen: 08:00 Interval history: He states he feels weak but otherwise no complaints. His voice is very soft and hard to understand. When I told him, his family has been unwilling to come get him and what his plan is going forward, he flips me his middle finger. Exam Vital Signs (past 8 hours): - 12/16/22 08:00 12/16/22 09:00 Temperature 98.2 F Pulse Rate 68 Respiratory Rate 16 Blood Pressure 162/81 H Pulse Oximetry 97 97 Oxygen Delivery Method Room Air Oxygen Flow Rate 0 Oxygen Delivery Method Room Air Oxygen Flow Rate 0 Narrative Exam Narrative: GEN: chronically ill appearing, soft voice CV: regular rate and rhythm PULM: clear bilaterally NEURO: awake, alert, oriented Objective Labs 12/15/22 05:56 12/15/22 05:56 PFSH Medical History Cerebrovascular accident Chronic GERD Dementia Hyperlipidemia Hypertension Social History household members: children Smoking Status: Former smoker alcohol intake: current Assessment & Plan Assessment & Plan narrative: 1. Weakness -appears to be at baseline -having difficulty caring for self -family currently unresponsive and refusing to take care of him 2. History of stroke -will try to get patient to participate with PT and evaluate mobility 3. Anemia -recheck in am, unclear etiology CODE: DNR Disposition: pending [facility] VTE Deep Vein Thrombosis/Pulmonary Embolism Present on Admission: No
--- NOTE | 2022-12-16 15:49 | CM.SWNOTE ---
DCP Note continued COLLET MAKING MACHINE OPERATOR receives VM from APS JEOVANY Alfred (Ph. # [phone]) regarding [facility]PS report made by this COLLET MAKING MACHINE OPERATOR. COLLET MAKING MACHINE OPERATOR calls Aubrie back and leaves VM and also provides DCP phone number for return call. Monique Jaffe, REINSTATEMENT CLERK
--- NOTE | 2022-12-16 16:02 | PT-IP ANOTE ---
checked back on pt and pt continues to refuse PT. pt stated that he is going to and his sons abandoned him in the hospital. will f/u.
[2022-12-16] MEDS: METOPROLOL ER 25 MG TABLET 12.5 MG PO (21:14)
[2022-12-16] MEDS: CLOPIDOGREL 75 MG TABLET PO (21:15)
[2022-12-16] MEDS: SERTRALINE 50 MG TABLET PO (21:15)
[2022-12-16 22:15] VITALS: BP 142/76; PULSE 72
[2022-12-16 23:00] VITALS: BP 145/71; PULSE 60; RESP 20; TEMP 37.2; O2SAT 98
[2022-12-17] MEDS: ACETAMINOPHEN 325 MG TABLET 650 MG PO ×3 (04:10→20:47)
[2022-12-17] MEDS: LEVOTHYROXINE 75 MCG TABLET 150 MCG PO (05:49)
[2022-12-17 06:21] LABS: Hematocrit 24.2 % (41-53); Mean Corpuscular HGB Conc 33.1 % (30-36); Mean Corpuscular Volume 84.4 fL (80-100); Platelet Count 242 X10^3/uL (150-400); Red Blood Cell Count 2.87 X10^6/uL (4.5-5.9); Red Cell Distribution Width 15.2 % (11.6-14.8); White Blood Cell Count 5.4 X10^3/uL (4.5-11.0)
[2022-12-17 07:00] VITALS: BP 178/73; PULSE 54; RESP 17; TEMP 36.8; O2SAT 98
[2022-12-17 07:39] VITALS: O2SAT 97
[2022-12-17] MEDS: ENOXAPARIN 40 MG/0.4 ML SYRINGE SUBCUT (08:59)
--- NOTE | 2022-12-17 10:13 | DI.MRI.S_ITS ---
PROCEDURE: MR HEAD/BRAIN WO CON INDICATIONS: left side numbness TECHNIQUE: Non-contrast axial T1 spin echo, axial T2 fast spin echo, sagittal and axial FLAIR, coronal T2 fast spin echo, axial gradient echo, axial diffusion and ADC through the brain. COMPARISON: [facility], CT, CT HEAD/BRAIN WO CON, 12/12/2022, 21:46. [facility], MR, MR HEAD/BRAIN WO CON, 09/20/2021, 10:40. FINDINGS: Image quality: Excellent. CSF spaces: Ventricles appear symmetric in size and shape. Basal cisterns are patent. No extra-axial fluid collections. Brain: No intracranial bleeds or mass effects. There is cerebral volume loss for age. There are periventricular and deep white matter chronic small vessel ischemic changes. Brainstem appears normal. Diffusion-weighted images show no acute ischemic insults. Scattered areas of mild chronic infarction are again seen. Normal intravascular flow voids are present. Skull and face: Calvarial bone marrow is normal in signal. Orbits are normal. Sinuses: There is complete opacification of the left frontal sinus and the left maxillary sinus. Moderate mucosal thickening is seen within the left anterior ethmoid air cells. Milder mucosal thickening is seen elsewhere within the paranasal sinuses. No abnormal fluid is seen within the mastoid air cells. IMPRESSION: No findings of acute or subacute infarction can be seen. Scattered areas of mild chronic infarction can be seen. Note is made of age-appropriate brain parenchymal volume loss and chronic small vessel ischemic changes. Additional findings: Significant left-sided paranasal sinus disease. Dictated by: Josemanuel Savage M.D. on 12/17/2022 at 9:57 Approved by: Josemanuel Savage M.D. on 12/17/2022 at 10:01
[2022-12-17 11:35] LABS: Reticulocyte Count, Percent 1.3 % (0.9-2.6)
[2022-12-17 11:38] LABS: Prothrombin Time 11.3 SECONDS (10.1-12.7)
[2022-12-17 11:41] LABS: PTT Partial Thromboplastin Tim 33 SECONDS (26-36)
[2022-12-17 11:49] LABS: Alanine Aminotransferase 126 IU/L (<50); Albumin Globulin Ratio 1.1 (1.0-2.8); Alkaline Phosphatase 442 U/L (38-126); Aspartate Aminotransferase 110 IU/L (17-59); BUN Creatinine Ratio 32.9 (6-22); Bilirubin Total 0.4 mg/dL (0.2-1.3); Bilirubin Unconjugated 0.1 mg/dL (0.0-1.1); Blood Urea Nitrogen 26 mg/dL (9-20); Calcium 9.8 mg/dL (8.4-10.2); Carbon Dioxide 30 mmol/L (22-32); Chloride 103 mmol/L (98-107); Estimated Glomerular Filt Rate > 60 mL/min (>60); Globulin 3.6 g/dL (1.7-4.1); Glucose 120 mg/dL (80-110); Lactate Dehydrogenase 237 U/L (120-246); Potassium 4.4 mmol/L (3.4-5.1); Sodium 139 mmol/L (137-145); Total Protein 7.6 g/dL (6.3-8.2)
[2022-12-17 12:54] LABS: Folate 17.4 ng/mL (2.76-20.0)
[2022-12-17 13:07] LABS: Transferrin 255 mg/dL (206-381)
[2022-12-17 13:10] LABS: Percent Iron Saturation 5 % (20-50); Total Iron Binding Capacity 347 ug/dL (261-462)
[2022-12-17 13:11] LABS: HEMOLYSIS < 15 (0-50)
[2022-12-17 13:13] LABS: Iron 16 ug/dL (49-181)
--- NOTE | 2022-12-17 14:39 | PM.PN.1 ---
Subjective Subjective Date Patient Seen: 12/17/22 Time Patient Seen: 10:00 Interval history: This morning after his lovenox injection into area over his triceps he noted his whole lower arm feels cold, and numb. I evaluated patient and pulses were normal radially and bracially. I noted no abnormality over lovenox injection site. I noted normal strength of the left extremity. He had subjective reducted sensation distal to the elbow and to the entire hand. MRI ordered which showed no stroke. Exam Vital Signs (past 8 hours): - 12/17/22 07:39 12/17/22 07:00 Temperature 98.2 F Pulse Rate 54 L Respiratory Rate 17 Blood Pressure 178/73 H Pulse Oximetry 97 98 Oxygen Delivery Method Room Air Oxygen Flow Rate 0 Oxygen Delivery Method Room Air Oxygen Flow Rate 0 Narrative Exam Narrative: GEN: chronically ill appearing, soft voice CV: regular rate and rhythm PULM: clear bilaterally NEURO: awake, alert, oriented, normal upper and lower extremity strength, subjective reduced sensation of arm distal to elbow Objective Labs 12/17/22 05:33 12/17/22 11:10 Labs: Laboratory Results - last 24 hr 12/17/22 12/17/22 12/17/22 05:33 11:10 11:10 WBC 5.4 RBC 2.87 L Hgb 8.0 L Hct 24.2 L MCV 84.4 MCH 28.0 MCHC 33.1 RDW 15.2 H Plt Count 242 Percent Retic PT 11.3 INR 1.0 APTT 33 Sodium Potassium Chloride Carbon Dioxide BUN Creatinine Estimated GFR BUN/Creatinine Ratio Glucose Calcium Iron TIBC % Saturation Transferrin Total Bilirubin Conjugated Bilirubin Unconjugated Bilirubin AST ALT Alkaline Phosphatase Lactate Dehydrogenase Total Protein Albumin Globulin Albumin/Globulin Ratio Folate 12/17/22 12/17/22 12/17/22 11:10 11:10 11:10 WBC RBC Hgb Hct MCV MCH MCHC RDW Plt Count Percent Retic 1.3 PT INR APTT Sodium 139 Potassium 4.4 Chloride 103 Carbon Dioxide 30 BUN 26 H Creatinine 0.79 Estimated GFR > 60 BUN/Creatinine Ratio 32.9 H Glucose 120 H Calcium 9.8 Iron 16 L TIBC 347 % Saturation 5 L Transferrin 255 Total Bilirubin 0.4 Conjugated Bilirubin 0.0 Unconjugated Bilirubin 0.1 AST 110 H ALT 126 H Alkaline Phosphatase 442 H D Lactate Dehydrogenase 237 Total Protein 7.6 Albumin 4.0 Globulin 3.6 Albumin/Globulin Ratio 1.1 Folate 17.4 PFSH Medical History Cerebrovascular accident Chronic GERD Dementia Hyperlipidemia Hypertension Social History household members: children Smoking Status: Former smoker alcohol intake: current Assessment & Plan Assessment & Plan narrative: 1. Weakness -appears to be at baseline -having difficulty caring for self -family currently unresponsive and refusing to take care of him 2. History of stroke -will try to get patient to participate with PT and evaluate mobility 3. Anemia -recheck of hemoglobin shows drop to 8.0 -no evidence of blood loss per nursing -ordered for stool guaiac prn -labs ordered which showed a low iron, will start PO iron 4. Left arm numbness -MRI negative for stroke -patient claims started when triceps region injected with lovenox -unclear to me if those are related such as a nerve irritation but will continue to monitor CODE: DNR Disposition: pending Quality VTE Deep Vein Thrombosis/Pulmonary Embolism Present on Admission: No
--- NOTE | 2022-12-17 15:05 | PC.NURSE ---
Pt today has improved emotionally and expresses gratitude for care. Pt is A&O X3. Pt refused PT however he is cooperative w/nursing staff. He takes meds when asked and is not impulsive. Pt is eating 100% of his meals. Pt has reduced pain today, and was only given PO Tylenol 650 mg one time. Pt states overall I feel better today. Pt did report numbness and tingling in right arm today but Brain MRI was negative and symptoms have since resolved.
--- NOTE | 2022-12-17 15:23 | PT-IP ANOTE ---
Attempted to see patient this afternoon after MRI results showed no acute findings. Patient was educated on benefits of working with PT in acute setting to reduce risk of decline and to assist with d/c planning, but patient pleasantly refused, stating not today. Offered to assist patient to EOB or up to chair and patient again declined. Informed patient that I would d/c therapy orders but that PT would be able to be consulted again if he decides he is ready to work with us. Nurse was also informed.
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
[2022-12-17] MEDS: FERROUS SULFATE 325 MG TABLET PO (16:25)
--- NOTE | 2022-12-17 17:56 | DI.US.S_ITS ---
PROCEDURE: US ABDOMEN COMPLETE INDICATIONS: TRANSAMINITIS TECHNIQUE: Real-time scanning was performed of the abdominal and retroperitoneal organs, with image documentation. COMPARISON: [facility], CT, CT KIDNEY URETER BLADDER (KUB), 11/14/2022, 10:43. FINDINGS: Liver: Liver is normal in size and homogeneous in echotexture. Gallbladder: No gallstones. No gallbladder wall thickening, pericholecystic fluid or sonographic Calvert's sign. Biliary ducts: Intrahepatic bile ducts are non-dilated. Extrahepatic bile duct caliber measures 3.4 mm. Normal is 6-7 mm or less in diameter, or 10 mm or less post-cholecystectomy. Pancreas: Visualized portions of the pancreas are sonographically normal. Spleen: Spleen is not visualized. Kidneys: Right kidney is normal in size and echotexture measuring 8.8 cm long. Left kidney is not visualized. No hydronephrosis or nephrolithiasis. No solid masses. Aorta: Visualized aorta is normal in caliber at less than 3 cm. Iliacs: Proximal common iliac arteries are normal in caliber at less than 2.5 cm. IVC: Intrahepatic inferior vena cava is patent. Miscellaneous: No free abdominal fluid. IMPRESSION: 1. Limited examination. No abnormalities are identified. 2. Spleen and left kidney are not visualized (exam refused by patient). Dictated by: Chinyere Prince M.D. on 12/18/2022 at 8:18 Approved by: Chinyere Prince M.D. on 12/18/2022 at 8:22
[2022-12-17 19:00] VITALS: O2SAT 98
[2022-12-17 20:00] VITALS: BP 140/76; PULSE 65; RESP 17; TEMP 36.9; O2SAT 98
[2022-12-17 20:47] VITALS: BP 178/73; PULSE 54
[2022-12-17] MEDS: SERTRALINE 50 MG TABLET PO (20:47)
[2022-12-17] MEDS: CLOPIDOGREL 75 MG TABLET PO (20:47)
[2022-12-17] MEDS: METOPROLOL ER 25 MG TABLET 12.5 MG PO (20:47)
[2022-12-17] MEDS: QUETIAPINE 25 MG TABLET 12.5 MG PO (20:56)
--- NOTE | 2022-12-17 21:46 | PC.NURSE ---
12/17 @ 2046 Patient was calling. This QA AUTOMATION ARCHITECT went to go and see what patient needed. Patient stated he needed tp be cleaned up. This QA AUTOMATION ARCHITECT went to go and get some briefs and proceeded to clean the patient up. Patient had a small BM. New Brief applied. Call light within reach and bed alarm on. I asked patient if he needed anything else and he replied no. Patient stated that next time to warm up the wipes and that he wanted his night time meds when they were due. Reported to Nano Reeves RN
--- NOTE | 2022-12-18 03:28 | PC.NURSE ---
This MORTICIAN SUPPLIES SALES REPRESENTATIVE went into the pt room at 2300 on 12/17/22 to answer the call light. Pt asked me to look at his penis and tell me what is wrong. His condom cath had came off, so I started to put it back on, pt asked if he needed to be erect: are you going to put this on soft? I had said no, and finished my work, he said be careful of my jewels in reference to his testicles. I left room.
[2022-12-18] MEDS: ACETAMINOPHEN 325 MG TABLET 650 MG PO ×3 (05:53→21:29)
[2022-12-18] MEDS: LEVOTHYROXINE 75 MCG TABLET 150 MCG PO (05:54)
[2022-12-18 05:55] LABS: Alanine Aminotransferase 131 IU/L (<50); Albumin 3.4 g/dL (3.5-5.0); Albumin Globulin Ratio 1.1 (1.0-2.8); Alkaline Phosphatase 423 U/L (38-126); Aspartate Aminotransferase 119 IU/L (17-59); BUN Creatinine Ratio 28.1 (6-22); Bilirubin Total 0.2 mg/dL (0.2-1.3); Blood Urea Nitrogen 27 mg/dL (9-20); Calcium 9.1 mg/dL (8.4-10.2); Carbon Dioxide 26 mmol/L (22-32); Chloride 106 mmol/L (98-107); Estimated Glomerular Filt Rate > 60 mL/min (>60); Globulin 3.2 g/dL (1.7-4.1); Glucose 97 mg/dL (80-110); HEMOLYSIS < 15 (0-50); Potassium 4.4 mmol/L (3.4-5.1); Sodium 138 mmol/L (137-145); Total Protein 6.6 g/dL (6.3-8.2)
[2022-12-18 05:58] LABS: Hematocrit 25.1 % (41-53); Hemoglobin 8.4 g/dL (13.5-17.5); Mean Corpuscular HGB Conc 33.4 % (30-36); Mean Corpuscular Hemoglobin 27.8 PG (26-34); Mean Corpuscular Volume 83.2 fL (80-100); Platelet Count 254 X10^3/uL (150-400); Red Blood Cell Count 3.01 X10^6/uL (4.5-5.9); White Blood Cell Count 5.3 X10^3/uL (4.5-11.0)
[2022-12-18 09:02] VITALS: BP 165/81; PULSE 60; RESP 17; TEMP 36.7; O2SAT 97
[2022-12-18] MEDS: lisinopriL 10 MG TABLET PO (09:09)
[2022-12-18] MEDS: FERROUS SULFATE 325 MG TABLET PO ×2 (09:09→17:17)
--- NOTE | 2022-12-18 09:45 | PC.NURSE ---
Assess- Patient is alert and oriented x2. He is agitated about his left testicle, asking the RNs and freelance graphic designer to make an incision to area. Explained to patient that we do not do that, told what he was saying to staff as well. He is not making sense. Incontinent of urine and stool. Patient changed and new brief put on him. He refused his Lovenox injection but took all his medication with some tylenol. He is resting now.
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
--- NOTE | 2022-12-18 15:50 | CM.DANOTE ---
Placement Efforts Lengthy conversation with Lucía, assigned APS womens volleyball coach today re this case Lucía has been in close contact w/ Tia, [facility] Engine Dynamometer Tester. Put simply- our best hope at this time for getting CHETAN secured for patient is getting a ?hardship waiver? approved on his behalf (at the state level) Consideration for this waiver has now been requested by APS and HCS This CORE STRIPPER Emailed supportive documentation to NAYANA Castrejon to aid in this process, see next CM note for contacts of this email Timeline for the determination of approval/denial of hardship waiver unknown JW
--- NOTE | 2022-12-18 15:54 | CM.DPNOTE ---
DCP Note The following information, gleaned from patient's chart, was sent to APS 6.8.23 to assist in a case being built on patient?s behalf that would qualify him for a ?hardship waiver?. If approved by administrators on the state level, the ?hardship waiver? would allow patient?s Medicaid to be approved without the submission of the requested financial paperwork (of which has been requested from son for a year). Gareth moved to [place] from [place] in approx. Jul 2020, we met him here at in September of 2020, he was documented as A+Ox4 and was living w/his son Shane. Gareth was seen an additional few times for stroke r/o until we saw him in Feb 2022 for increasing confusion and falls, Gareth was dx w/Dementia and son Shane was provided with snf care resources and was encouraged to research dementia care units on Gareth? behalf. Gareth was discharged home w/son. Gareth returned in Apr 2022, dropped off by son who stated patient ?doesn?t have a home to discharge to, we (son and DIL) are getting a divorce?. It was at that visit, Apr 2022 that this CM team learned a Medicaid application had been submitted already but that the financial eligibility could not be approved until son submitted: 1. proof of a sale of patient?s home in [place] and 2. A letter indicating the purpose and date of the stinson gift given from Gareth to mike Lynn. It is now December 2022, Gareth is boarding on our acute care floor awaiting parts counterman care placement, and as of yesterday?s conversation with mike Lynn ?I am working on getting those documents, I am getting closer now?. Since April 2022, we?ve seen Gareth 6 times, all of which he has had no medical need for admission. On multiple occasions, mike Lynn eludes staff by saying he is working on placement for his father and then does not answer his phone for hours-days. According to my chart review, Shane has made the following remarks to staff to explain his inability to care for his Dad ?getting a divorce? ? living in a car? ?restraining order against me from my ex? ?I?m out of town? ?I?m at work? ?he (Gareth) is a threat to my and he will be going to a place soon?. APS has been called multiple times by staff. The suspicion is that the dysfunction within this family unit is so high, the necessary financial paperwork has not and will not be submitted. Son Shane has eluded numerous professionals by saying ?I am getting close to getting this paperwork? however has never submitted them within the 70 day timeline set forth by [facility], resulting in a ?hard close?. In addition, there is currently no substantiated APS findings. I hope this information is helpful as Gareth is being considered for a ?hardship waiver?. Please let us know if we can provide additional information that would aid in making your determination CHARITY Mcgill
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
[2022-12-18] MEDS: CLOPIDOGREL 75 MG TABLET PO (21:29)
[2022-12-18] MEDS: SERTRALINE 50 MG TABLET PO (21:29)
[2022-12-18 21:30] VITALS: BP 165/81; PULSE 60
[2022-12-18] MEDS: METOPROLOL ER 25 MG TABLET 12.5 MG PO (21:30)
[2022-12-18] MEDS: QUETIAPINE 25 MG TABLET 12.5 MG PO (21:31)
[2022-12-18 21:59] VITALS: BP 160/75; PULSE 62
[2022-12-18 22:50] VITALS: BP 170/63; PULSE 95; RESP 15; TEMP 36.8; O2SAT 99
[2022-12-19 05:11] LABS: Alanine Aminotransferase 143 IU/L (<50); Albumin 3.4 g/dL (3.5-5.0); Albumin Globulin Ratio 1.1 (1.0-2.8); Alkaline Phosphatase 471 U/L (38-126); Aspartate Aminotransferase 126 IU/L (17-59); BUN Creatinine Ratio 29.2 (6-22); Blood Urea Nitrogen 26 mg/dL (9-20); Calcium 9.1 mg/dL (8.4-10.2); Carbon Dioxide 25 mmol/L (22-32); Chloride 108 mmol/L (98-107); Estimated Glomerular Filt Rate > 60 mL/min (>60); Globulin 3.2 g/dL (1.7-4.1); Glucose 99 mg/dL (80-110); HEMOLYSIS < 15 (0-50); Potassium 4.3 mmol/L (3.4-5.1); Sodium 138 mmol/L (137-145); Total Protein 6.6 g/dL (6.3-8.2)
[2022-12-19] MEDS: LEVOTHYROXINE 75 MCG TABLET 150 MCG PO (05:12)
[2022-12-19 05:14] LABS: Bilirubin Total < 0.1 mg/dL (0.2-1.3)
--- NOTE | 2022-12-19 08:16 | PC.NURSE ---
Addendum entered by Jannette Soto R.N. 12/19/22 15:36: Patient up around 1130, medications given after waking up. He has refused his lovenox injection again today. Napping now. Patient has been incontinent of urine x2, and he has been changed. Cream applied to coccyx x2. Original Note: Patient is sleeping soundly now. He denies pain. Patient is incontinent of bowel and bladder. He will be checked and changed when he wakes up. He has a small red area to his coccyx. Will apply cream to this and check to see if area is open.
[2022-12-19 08:44] LABS: HBsAg Screen Negative (Negative); Hepatitis A Antibody IgM Negative (Negative); Hepatitis B Core Antibody IgM Negative (Negative); Hepatitis C Antibody Non Reactive (Non Reactive)
[2022-12-19] MEDS: lisinopriL 10 MG TABLET PO (12:10)
[2022-12-19] MEDS: ACETAMINOPHEN 325 MG TABLET 650 MG PO ×2 (12:10→20:50)
[2022-12-19] MEDS: FERROUS SULFATE 325 MG TABLET PO (12:10)
--- NOTE | 2022-12-19 14:37 | P.PN_ITS ---
Subjective Subjective Date Patient Seen: 12/19/22 Interval history: 72-year-old gentleman with hypertension, hyperlipidemia, dementia, previous stroke with left-sided weakness, coronary artery disease status post stents, depression who was brought into the emergency department on the evening of December 12 with chief complaint of weakness and slurred speech.? He was cleared of any acute medical issues, but on due to family psychosocial issues, he is unable to return home.? He has no family willing to care for him.? Therefore, he was admitted for placement. Pt is less agitated today. Has been getting 12.5 mg seroquel at night and slept til 11:30 this morning. We can stop Seroquel and monitor. Exam Vital Signs (past 8 hours): - 12/19/22 08:10 Oxygen Delivery Method Room Air Oxygen Delivery Method Room Air Oxygen Flow Rate 0 Narrative Exam Narrative: Gen: resting comfortably Objective Labs 12/18/22 05:35 12/19/22 04:40 Labs: Laboratory Results - last 24 hr 12/18/22 12/19/22 05:18 04:40 Sodium 138 Potassium 4.3 Chloride 108 H Carbon Dioxide 25 BUN 26 H Creatinine 0.89 Estimated GFR > 60 BUN/Creatinine Ratio 29.2 H Glucose 99 Calcium 9.1 Total Bilirubin < 0.1 L AST 126 H ALT 143 H Alkaline Phosphatase 471 H Total Protein 6.6 Albumin 3.4 L Globulin 3.2 Albumin/Globulin Ratio 1.1 Hepatitis A IgM Ab Negative Hep Bs Antigen Negative Hep B Core IgM Ab Negative Hepatitis C Antibody Non reactive Hep C Ab Signal/Cutoff Comment PFSH Medical History Cerebrovascular accident Chronic GERD Dementia Hyperlipidemia Hypertension Social History household members: children Smoking Status: Former smoker alcohol intake: current Assessment & Plan Assessment & Plan narrative: 1. Unstable discharge for a debilitated elderly male with multiple medical comorbidities Patient remains here under observation status while an appropriate disposition is identified.? He has no acute, decompensated medical issue, but is chronically weak, debilitated, and quite malnourished. 2. History of stroke with left-sided weakness There is mixed information in the chart about his mobility.? In One part of the note, his son reported that the patient gets up and moves about the house freely.? In another, it stated that the son's is unable to lift him out of bed.? He has declined to work with physical therapy throughout his hospitalization.? Therefore, physical therapy orders were discontinued. 3. Progressive transaminitis, undetermined etiology -On December 08, his LFTs were within normal limits.? On December 12 his AST was up to 61, it has progressively risen and is up to 126 today.? His ALT has progressively increased from normal at 27 on December 08-143 today.? -His alkaline phosphatase was 224 on admission and appears to have been chronically elevated, it is up to 471 today.? It has been as high as 1169 in September of 2021.? -Abdominal ultrasound on December 17 revealed no evidence of gallstones, normal- appearing liver, nondilated intrahepatic bile ducts.? Visualized portions of the pancreas appeared normal.? Patient stopped the procedure prior to spleen and le ft kidney being visualized. -pt denies abd pain, N/V -check labs periodically 4. Chronic iron deficiency anemia -pt started on oral PPI since he is on clopidogrel -pt started on oral iron -etiology unclear, currently not good candidate for endoscopy 5. Coronary artery disease Previous stenting.? No acute symptoms.? Continue home meds 6. Hypertension He is presently normotensive.? Continue usual home meds. 7. Dementia Reported per son.? There is no documentation of dementia and prior records.? Patient is alert and oriented, He does appear to have capacity at this time. -stopped Seroquel 8. Depression Continue Zoloft 9. Left arm numbness [place] to be secondary to Lovenox injection.? Brain MRI revealed no acute changes.? He reports it has resolved Code status Previously documented DNR DNI Prophylaxis Continue Lovenox Disposition Unknown Surrogate decision maker: SonSudhakar VTE Deep Vein Thrombosis/Pulmonary Embolism Present on Admission: No
[2022-12-19 14:40] VITALS: BP 126/58; PULSE 60; RESP 18; TEMP 36.2; O2SAT 98
[2022-12-19 20:45] VITALS: BP 138/66; PULSE 60; RESP 18; TEMP 36.7; O2SAT 100
[2022-12-19 20:51] VITALS: BP 138/66; PULSE 60
[2022-12-19] MEDS: METOPROLOL ER 25 MG TABLET 12.5 MG PO (20:51)
[2022-12-19] MEDS: SERTRALINE 50 MG TABLET PO (20:51)
[2022-12-19] MEDS: CLOPIDOGREL 75 MG TABLET PO (20:51)
[2022-12-20] VITALS (9 sets, daily range): BP systolic 133–149; BP diastolic 65–73; PULSE 58–69; RESP 18–19; TEMP 36.6–36.8; O2SAT 95–99
[2022-12-20] MEDS: diphenhydrAMINE 25 MG TABLET PO ×3 (06:06→21:28)
[2022-12-20] MEDS: LEVOTHYROXINE 75 MCG TABLET 150 MCG PO (06:07)
[2022-12-20] MEDS: FERROUS SULFATE 325 MG TABLET PO ×2 (07:56→16:29)
[2022-12-20] MEDS: PANTOPRAZOLE DR 40 MG TABLET PO (07:56)
--- NOTE | 2022-12-20 08:18 | P.PN_ITS ---
Subjective Subjective Interval history: Patient not oriented and only points and nods. No verbal interaction. Exam Vital Signs (past 8 hours): - 12/20/22 00:22 12/20/22 04:48 12/20/22 08:00 Pulse Rate 60 Blood Pressure 138/66 Pulse Oximetry 95 95 Oxygen Delivery Method Room Air Room Air Oxygen Flow Rate 0 Oxygen Delivery Method Room Air Oxygen Flow Rate 0 Narrative Exam Narrative: GEN: Alert but not oriented, no verbal interaction HEENT:NC, Face symmetric, thin with generalized sarcopenia CHEST: Respiratory excursions symmetric, CTAB CV: RRR, no M/R/G ABD: Soft, NT/ND, BT present in all 4 quadrants, no organomegaly or masses EXTR: warm, well perfused, no C/C/E, generalized sarcopenia SKIN: warm and dry, no rash NEURO: No focal deficits. Objective Labs 12/18/22 05:35 12/19/22 04:40 Labs: Laboratory Results - last 24 hr 12/18/22 05:18 Hepatitis A IgM Ab Negative Hep Bs Antigen Negative Hep B Core IgM Ab Negative Hepatitis C Antibody Non reactive Hep C Ab Signal/Cutoff Comment [facility] Medical History Cerebrovascular accident Chronic GERD Dementia Hyperlipidemia Hypertension Social History household members: children Smoking Status: Former smoker alcohol intake: current Assessment & Plan Assessment & Plan narrative: 1. Unstable discharge for a debilitated elderly male with multiple medical comorbidities Patient remains here under observation status while an appropriate disposition is identified.? He has no acute, decompensated medical issue, but is chronically weak, debilitated, and quite malnourished. 2. History of stroke with left-sided weakness There is mixed information in the chart about his mobility.? In one part of the note, his son reported that the patient gets up and moves about the house freely.? In another, it stated that the son's is unable to lift him out of bed.? He has declined to work with physical therapy throughout his hospitalization.? Therefore, physical therapy orders were discontinued. 3. Progressive transaminitis, undetermined etiology -On December 08, his LFTs were within normal limits.? On December 12 his AST was up to 61, it has progressively risen and is up to 126 today.? His ALT has p rogressively increased from normal at 27 on December 08-143 today.? -His alkaline phosphatase was 224 on admission and appears to have been chronically elevated, it is up to 471 today.? It has been as high as 1169 in September of 2021.? -Abdominal ultrasound on December 17 revealed no evidence of gallstones, normal- appearing liver, nondilated intrahepatic bile ducts.? Visualized portions of the pancreas appeared normal.? Patient stopped the procedure prior to spleen and left kidney being visualized. -pt denies abd pain, N/V -check labs periodically 4. Chronic iron deficiency anemia -pt started on oral PPI since he is on clopidogrel -pt started on oral iron -etiology unclear, currently not good candidate for endoscopy 5. Coronary artery disease Previous stenting.? No acute symptoms.? Continue home meds 6. Hypertension He is normotensive.? Continue usual home meds. 7. Dementia Reported per son.? There is no documentation of dementia and prior records. -stopped Seroquel 8. Depression Continue Zoloft 9. Left arm numbness [place] to be secondary to Lovenox injection.? Brain MRI revealed no acute changes.? He reports it has resolved. Code status Previously documented DNR DNI Prophylaxis Continue Lovenox Disposition Unknown Surrogate decision maker: Son, Sudhakar Asher VTE Deep Vein Thrombosis/Pulmonary Embolism Present on Admission: No
[2022-12-20] MEDS: ACETAMINOPHEN 325 MG TABLET 650 MG PO ×3 (09:36→21:28)
[2022-12-20] MEDS: lisinopriL 10 MG TABLET PO (09:36)
[2022-12-20] MEDS: ENOXAPARIN 40 MG/0.4 ML SYRINGE SUBCUT (09:37)
--- NOTE | 2022-12-20 11:30 | CM.DPC ---
DCP/continued: Received vm from [facility] supervisor correspondence section/Blaine Erendira cell# [phone] he confirms that [facility] and [facility] are working together to move patient into facility without the needed paperwork from the son. Blaine confirms that son is not cooperating and Blaine hopes that hospital will be able to move patient without formal guardianship. P: Pending. No follow up on weekend because state offices are closed. CM team to f/u in AM on 12-22-22. LORETO
[2022-12-20] MEDS: CLOPIDOGREL 75 MG TABLET PO (21:28)
[2022-12-20] MEDS: SERTRALINE 50 MG TABLET PO (21:28)
[2022-12-20] MEDS: METOPROLOL ER 25 MG TABLET 12.5 MG PO (21:29)
[2022-12-21] MEDS: PANTOPRAZOLE DR 40 MG TABLET PO (06:05)
[2022-12-21] MEDS: LEVOTHYROXINE 75 MCG TABLET 150 MCG PO (06:05)
[2022-12-21 07:26] VITALS: BP 133/49; PULSE 60; RESP 16; TEMP 37.2; O2SAT 100
--- NOTE | 2022-12-21 07:34 | PM.PN.1 ---
Subjective Subjective Interval history: No complaints. Sitting up in bed eating. Exam Vital Signs (past 8 hours): - 12/21/22 07:26 Temperature 98.9 F Pulse Rate 60 Respiratory Rate 16 Blood Pressure 133/49 L Pulse Oximetry 100 Oxygen Flow Rate 0 Oxygen Delivery Method Room Air Oxygen Flow Rate 0 Narrative Exam Narrative: GEN: Alert but not oriented, no verbal interaction HEENT:NC, Face symmetric, thin with generalized sarcopenia CHEST: Respiratory excursions symmetric, CTAB CV: RRR, no M/R/G ABD: Soft, NT/ND, BT present in all 4 quadrants, no organomegaly or masses EXTR: warm, well perfused, no C/C/E, generalized sarcopenia SKIN: warm and dry, no rash NEURO: No focal deficits. Objective Labs 12/18/22 05:35 12/19/22 04:40 [facility] Medical History Cerebrovascular accident Chronic GERD Dementia Hyperlipidemia Hypertension Social History household members: children Smoking Status: Former smoker alcohol intake: current Assessment & Plan Assessment & Plan narrative: 1. Unstable discharge for a debilitated elderly male with multiple medical comorbidities Patient remains here under observation status while an appropriate disposition is identified.? He has no acute, decompensated medical issue, but is chronically weak, debilitated, and quite malnourished. 2. History of stroke with left-sided weakness There is mixed information in the chart about his mobility.? In one part of the note, his son reported that the patient gets up and moves about the house freely.? In another, it stated that the son's is unable to lift him out of bed.? He has declined to work with physical therapy throughout his hospitalization.? Therefore, physical therapy orders were discontinued. 3. Progressive transaminitis, undetermined etiology -On December 08, his LFTs were within normal limits.? On December 12 his AST was up to 61, it has progressively risen and is up to 126 today.? His ALT has progressively increased from normal at 27 on December 08-143 today.? -His alkaline phosphatase was 224 on admission and appears to have been chronically elevated, it is up to 471 today.? It has been as high as 1169 in September of 2021.? -Abdominal ultrasound on December 17 revealed no evidence of gallstones, normal-appearing liver, nondilated intrahepatic bile ducts.? Visualized portions of the pancreas appeared normal.? Patient stopped the procedure prior to spleen and left kidney being visualized. -pt denies abd pain, N/V -check labs periodically 4. Chronic iron deficiency anemia -pt started on oral PPI since he is on clopidogrel -pt started on oral iron -etiology unclear, currently not good candidate for endoscopy 5. Coronary artery disease Previous stenting.? No acute symptoms.? Continue home meds 6. Hypertension He is normotensive.? Continue usual home meds. 7. Dementia Reported per son.? There is no documentation of dementia and prior records. -stopped Seroquel 8. Depression Continue Zoloft 9. Left arm numbness [place] to be secondary to Lovenox injection.? Brain MRI revealed no acute changes.? He reports it has resolved. Code status Previously documented DNR DNI Prophylaxis Continue Lovenox Disposition Unknown Surrogate decision maker: SonSudhakar VTE Deep Vein Thrombosis/Pulmonary Embolism Present on Admission: No
[2022-12-21 08:46] VITALS: BP 133/49; PULSE 60
[2022-12-21] MEDS: lisinopriL 10 MG TABLET PO (08:46)
[2022-12-21] MEDS: ACETAMINOPHEN 325 MG TABLET 650 MG PO ×2 (08:47→18:38)
[2022-12-21] MEDS: FERROUS SULFATE 325 MG TABLET PO ×2 (08:47→18:37)
[2022-12-21 19:00] VITALS: O2SAT 98
[2022-12-21 20:00] VITALS: BP 129/59; PULSE 61; RESP 18; TEMP 36.5; O2SAT 98
[2022-12-21] MEDS: METOPROLOL ER 25 MG TABLET 12.5 MG PO (20:15)
[2022-12-21] MEDS: diphenhydrAMINE 25 MG TABLET PO (20:15)
[2022-12-21] MEDS: CLOPIDOGREL 75 MG TABLET PO (20:15)
[2022-12-21] MEDS: SERTRALINE 50 MG TABLET PO (20:15)
--- NOTE | 2022-12-22 00:47 | PC.NURSE ---
patient refusing changing due to staff limits on behavior as well as promoting self independence and self care. patient is upset that staff is requesting patient to participate in self care. patient yelled at this RN and AGRICULTURAL SPECIALIST to get out of the room. patient educated on the importance of staying clean. patient informed that there will need to be some care done before the end of shift, patient did not reposed
--- NOTE | 2022-12-22 01:05 | PC.NURSE ---
Pt called for assistance and primary RN (job specification writer) checked on pt. Pt stated, I'm wet and I need to be cleaned up. RN informed pt that she will assist him in getting cleaned but in order to promote independence with ADLs pt was asked to perform rosita-care on himself with the assistance of his primary RN since he has full ROM of upper extremities and is fully capable. Pt became angry and stated, I don't want to do that. I don't need to be cleaned up anymore. I'm not wet. Get out of my room. Pt also started cursing at RN and TUMBLING BARREL PAINTER who came to assist pt. RN and TUMBLING BARREL PAINTER offered to assist with rosita-care again but pt refused; stated get out of my room. Pt has been belligerent towards staff; cursing and yelling. RN asked pt multiple times to be more respectful towards staff and refrain from cursing and yelling. RN coordinator was made aware of pt's behavior.
[2022-12-22] MEDS: LEVOTHYROXINE 50 MCG TABLET 150 MCG PO (07:00)
[2022-12-22] MEDS: PANTOPRAZOLE DR 40 MG TABLET PO (07:00)
--- NOTE | 2022-12-22 08:24 | PM.PN.1 ---
Subjective Subjective Interval history: No complaints. Exam Vital Signs (past 8 hours): Oxygen Delivery Method Room Air Oxygen Flow Rate 0 Narrative Exam Narrative: GEN: Alert but not oriented, no verbal interaction HEENT:NC, Face symmetric, thin with generalized sarcopenia CHEST: Respiratory excursions symmetric, CTAB CV: RRR, no M/R/G ABD: Soft, NT/ND, BT present in all 4 quadrants, no organomegaly or masses EXTR: warm, well perfused, no C/C/E, generalized sarcopenia SKIN: warm and dry, no rash NEURO: No focal deficits. Objective Labs 12/18/22 05:35 12/19/22 04:40 [facility] Medical History Cerebrovascular accident Chronic GERD Dementia Hyperlipidemia Hypertension Social History household members: children Smoking Status: Former smoker alcohol intake: current Assessment & Plan Assessment & Plan narrative: 1. Unstable discharge for a debilitated elderly male with multiple medical comorbidities Patient remains here under observation status while an appropriate disposition is identified.? He has no acute, decompensated medical issue, but is chronically weak, debilitated, and quite malnourished. 2. History of stroke with left-sided weakness There is mixed information in the chart about his mobility.? In one part of the note, his son reported that the patient gets up and moves about the house freely.? In another, it stated that the son's is unable to lift him out of bed.? He has declined to work with physical therapy throughout his hospitalization.? Therefore, physical therapy orders were discontinued. 3. Progressive transaminitis, undetermined etiology -On December 08, his LFTs were within normal limits.? On December 12 his AST was up to 61, it has progressively risen and is up to 126 today.? His ALT has progressively increased from normal at 27 on December 08-143 today.? -His alkaline phosphatase was 224 on admission and appears to have been chronically elevated, it is up to 471 today.? It has been as high as 1169 in September of 2021.? -Abdominal ultrasound on December 17 revealed no evidence of gallstones, normal-appearing liver, nondilated intrahepatic bile ducts.? Visualized portions of the pancreas appeared normal.? Patient stopped the procedure prior to spleen and left kidney being visualized. -pt denies abd pain, N/V -check labs periodically 4. Chronic iron deficiency anemia -pt started on oral PPI since he is on clopidogrel -pt started on oral iron -etiology unclear, currently not good candidate for endoscopy 5. Coronary artery disease Previous stenting.? No acute symptoms.? Continue home meds 6. Hypertension He is normotensive.? Continue usual home meds. 7. Dementia Reported per son.? There is no documentation of dementia and prior records. -stopped Seroquel 8. Depression Continue Zoloft 9. Left arm numbness [place] to be secondary to Lovenox injection.? Brain MRI revealed no acute changes.? He reports it has resolved. Code status Previously documented DNR DNI Prophylaxis Continue Lovenox Disposition Unknown Surrogate decision maker: SonSudhakar VTE Deep Vein Thrombosis/Pulmonary Embolism Present on Admission: No
[2022-12-22] MEDS: FERROUS SULFATE 325 MG TABLET PO ×2 (09:18→18:09)
[2022-12-22] MEDS: lisinopriL 10 MG TABLET PO (09:18)
[2022-12-22] MEDS: ACETAMINOPHEN 325 MG TABLET 650 MG PO ×2 (09:18→20:41)
[2022-12-22 09:27] VITALS: BP 139/60; PULSE 60; RESP 16; TEMP 36.8; O2SAT 99
--- NOTE | 2022-12-22 10:46 | PC.NURSE ---
Patient ate breakfast and is now resting and watching television. His behavior has been appropriate this morning.
[2022-12-22 14:57] LABS: HEMOLYSIS 30 (0-50); Vitamin B12 572 pg/mL (239-931)
--- NOTE | 2022-12-22 15:22 | CM.DPC ---
DCP Cont: SW returned APS Research Neuropsychologist Blaine Rollins phone call to [phone] and left detailed msg as Blaine is not working today but will return tomorrow 12/23/22 to inquire if a meeting can/has been scheduled between APS and [facility] regarding their request for approving a waiver for Medicaid due to inability to secure pt's finances so that pt could be placed at [facility] in [place]. SW also inquired how long this process might typically take. SW also left msg for [facility] updating that still waiting for confirmation of Medicaid approval through the requested waiver and requested they continue to follow for placement if this can be arranged. SW also left msg for pt's assigned [facility]CS worker Juliana Spicer [phone] to see if she had any additional updates. Plan: SW to continue to follow closely for APS Blaine to return to work tomorrow 12/23 to gather additional information regarding Medicaid waiver for placement and timeline for possible acceptance towards LTC placement. CHARITY Bradshaw
--- NOTE | 2022-12-22 15:53 | DIET.CONS2 ---
Dietary Inpatient Consultation Note Admission Date: 12/14/2022 15:06 Pt on dysphagia diet due to being edentulous. RD okay with pt eating chocolate tort or cookie dipped in milk as pt desires these desserts due to long length of stay. Diet: 12/18/22 Lunch Dysphagia Diet Diet Modifications: Liquid consistency: Normal/Thin Food texture: Dysphagia Mechanical Soft Nutrition Percent Meal Consumed 100% 12/22/22 13:13 Percent Meal Consumed 100% 12/21/22 15:18 Percent Meal Consumed 100% 12/21/22 09:01 Percent Meal Consumed 75% 12/20/22 18:23 Electronically Signed by: Judy Mukherjee 12/22/22 15:53 Clinical Diet[address] [address]
--- NOTE | 2022-12-22 17:44 | PC.NURSE ---
Discussion with patient related to behaviors reported by staff, swearing, name calling and inappropriate behavior. Patient defensive states that staff told him to wipe his own ass after incontinent episode. States they had a attitude regarding care. Discussed use of profanity, and Patient Rights and Responsibilities. Patient states his insurance pays the bill and staff is here to take care of him. Reinforced the necessity of respectful and appropriate interactions. Patient describes several positive interactions with staff. States that only a few staff member have a problem with me. Discussed patient mobility and limitations, denies working with physical therapy. Reinforced need to participate in care. Patient resistive to feedback. Will revisit as needed.
[2022-12-22 20:00] VITALS: BP 145/72; PULSE 61; RESP 17; TEMP 36.4; O2SAT 98
[2022-12-22] MEDS: SERTRALINE 50 MG TABLET PO (20:37)
[2022-12-22] MEDS: CLOPIDOGREL 75 MG TABLET PO (20:37)
[2022-12-22 21:32] VITALS: BP 145/72; PULSE 61
[2022-12-22] MEDS: METOPROLOL ER 25 MG TABLET 12.5 MG PO (21:32)
[2022-12-23] MEDS: diphenhydrAMINE 25 MG TABLET PO (03:05)
[2022-12-23] MEDS: ACETAMINOPHEN 325 MG TABLET 650 MG PO ×2 (03:06→08:53)
--- NOTE | 2022-12-23 06:35 | PC.NURSE ---
Pt c/o back pain and itching around 0300, tylenol and benadryl given with relief. This am the BI MANAGER Kevon tried to see if patient needed his brief change but patient refused.
[2022-12-23 07:00] VITALS: BP 133/50; PULSE 57; RESP 16; TEMP 36.6; O2SAT 98
--- NOTE | 2022-12-23 08:05 | PM.PN.1 ---
Subjective Subjective Interval history: No updates or complaints. Exam Vital Signs (past 8 hours): Oxygen Delivery Method Room Air Oxygen Flow Rate 0 Narrative Exam Narrative: GEN: Alert but not oriented, no verbal interaction HEENT:NC, Face symmetric, thin with generalized sarcopenia CHEST: Respiratory excursions symmetric, CTAB CV: RRR, no M/R/G ABD: Soft, NT/ND, BT present in all 4 quadrants, no organomegaly or masses EXTR: warm, well perfused, no C/C/E, generalized sarcopenia SKIN: warm and dry, no rash NEURO: No focal deficits. Objective Labs 12/18/22 05:35 12/19/22 04:40 Labs: Laboratory Results - last 24 hr 12/17/22 11:10 Sodium 139 Potassium 4.4 Chloride 103 Carbon Dioxide 30 BUN 26 H Creatinine 0.79 Estimated GFR > 60 BUN/Creatinine Ratio 32.9 H Glucose 120 H Calcium 9.8 Total Bilirubin 0.4 Conjugated Bilirubin 0.0 Unconjugated Bilirubin 0.1 AST 110 H ALT 126 H Alkaline Phosphatase 442 H D Lactate Dehydrogenase 237 Total Protein 7.6 Albumin 4.0 Globulin 3.6 Albumin/Globulin Ratio 1.1 Vitamin B12 572 Folate 17.4 PFSH Medical History Cerebrovascular accident Chronic GERD Dementia Hyperlipidemia Hypertension Social History household members: children Smoking Status: Former smoker alcohol intake: current Assessment & Plan Assessment & Plan narrative: 1. Unstable discharge for a debilitated elderly male with multiple medical comorbidities Patient remains here under observation status while an appropriate disposition is identified.? He has no acute, decompensated medical issue, but is chronically weak, debilitated, and quite malnourished. 2. History of stroke with left-sided weakness There is mixed information in the chart about his mobility.? In one part of the note, his son reported that the patient gets up and moves about the house freely.? In another, it stated that the son's is unable to lift him out of bed.? He has declined to work with physical therapy throughout his hospitalization.? Therefore, physical therapy orders were discontinued. 3. Progressive transaminitis, undetermined etiology -On December 08, his LFTs were within normal limits.? On December 12 his AST was up to 61, it has progressively risen and is up to 126 today.? His ALT has progressively increased from normal at 27 on December 08-143 today.? -His alkaline phosphatase was 224 on admission and appears to have been chronically elevated, it is up to 471 today.? It has been as high as 1169 in September of 2021.? -Abdominal ultrasound on December 17 revealed no evidence of gallstones, normal-appearing liver, nondilated intrahepatic bile ducts.? Visualized portions of the pancreas appeared normal.? Patient stopped the procedure prior to spleen and left kidney being visualized. -pt denies abd pain, N/V -check labs periodically 4. Chronic iron deficiency anemia -pt started on oral PPI since he is on clopidogrel -pt started on oral iron -etiology unclear, currently not good candidate for endoscopy 5. Coronary artery disease Previous stenting.? No acute symptoms.? Continue home meds 6. Hypertension He is normotensive.? Continue usual home meds. 7. Dementia Reported per son.? There is no documentation of dementia and prior records. -stopped Seroquel 8. Depression Continue Zoloft 9. Left arm numbness [place] to be secondary to Lovenox injection.? Brain MRI revealed no acute changes.? He reports it has resolved. Code status Previously documented DNR DNI Prophylaxis Continue Lovenox Disposition Unknown Surrogate decision maker: SonSudhakar VTE Deep Vein Thrombosis/Pulmonary Embolism Present on Admission: No
[2022-12-23] MEDS: PANTOPRAZOLE DR 40 MG TABLET PO (08:53)
[2022-12-23] MEDS: FERROUS SULFATE 325 MG TABLET PO ×2 (08:53→17:27)
[2022-12-23] MEDS: lisinopriL 10 MG TABLET PO (08:53)
[2022-12-23] MEDS: ENOXAPARIN 40 MG/0.4 ML SYRINGE SUBCUT (08:53)
[2022-12-23] MEDS: LEVOTHYROXINE 50 MCG TABLET 150 MCG PO (08:53)
--- NOTE | 2022-12-23 09:01 | CM.DPNOTE ---
Addendum entered by Reanna Nails, SALES NEGOTIATOR 12/23/22 14:36: ADD: Tia, [employer] Crewmember, [facility] P [phone] Original Note: DCP Note TC from [facility] worker Juliana Nayan [phone]. There was a mtg held yesterday between higher ups within [facility]. Unfortunately, per Juliana, there was not much progress made Juliana anticipates the hardship waiver will not get approved until patient has guardian assigned The stated concern by HCS, per Juliana, thus far is that patient has hundreds of thousands of dollars unaccounted for and someone needs to be able to pay the expected co-pay Son Shane is still listed on patient's bank account Meanwhile, patient's deadline for the financial portion of his [employer] application to be approved/denied is this and Juliana cannot tell this SALES NEGOTIATOR if this will remain in pending status until above can be sorted out Overall, no progress on this unfortunate case- awaiting more information from home and community services and [facility] One known fact: Patient requires guardianship JW
--- NOTE | 2022-12-23 09:15 | PC.NURSE ---
Assess- Patient is alert and oriented x3, he does have some periods of confusion. Yesterday patient was talking well, no hand gestures used. No silent lip talking. He has been having appropriate behaviors for the last two day shifts. No issues with any staff last night or this morning. Patient ate 100% at breakfast. He is resting now. Awaiting placement out of hospital.
[2022-12-23 19:00] VITALS: O2SAT 99
[2022-12-23 19:55] VITALS: BP 145/66; PULSE 62; RESP 16; TEMP 36.9; O2SAT 99
[2022-12-23 21:44] VITALS: BP 145/66; PULSE 62
[2022-12-23] MEDS: METOPROLOL ER 25 MG TABLET 12.5 MG PO (21:44)
[2022-12-23] MEDS: SERTRALINE 50 MG TABLET PO (21:45)
[2022-12-23] MEDS: CLOPIDOGREL 75 MG TABLET PO (21:45)
[2022-12-23 22:10] VITALS: BP 136/64; PULSE 60
[2022-12-24] MEDS: ACETAMINOPHEN 325 MG TABLET 650 MG PO ×4 (00:24→21:00)
[2022-12-24] MEDS: PANTOPRAZOLE DR 40 MG TABLET PO (06:10)
[2022-12-24] MEDS: LEVOTHYROXINE 50 MCG TABLET 150 MCG PO (06:11)
[2022-12-24 07:00] VITALS: BP 143/53; PULSE 54; RESP 17; TEMP 36.6; O2SAT 97
[2022-12-24 08:00] VITALS: O2SAT 97
[2022-12-24 09:16] VITALS: BP 143/53
[2022-12-24] MEDS: lisinopriL 10 MG TABLET PO (09:16)
[2022-12-24] MEDS: FERROUS SULFATE 325 MG TABLET PO ×2 (09:16→17:20)
--- NOTE | 2022-12-24 15:24 | CM.DPNOTE ---
Addendum entered by CHARITY Yadav 12/25/22 14:28: ADD: According to conversation w/ Tia, Home and Community Services Speeder Worker: The deadline for son Shane to submit financial documentation is today. If Shane does not submit, patient will be denied. Once denied, the Home and Community Service director social welfare, in this case, Juliana Medeiros, can then submit an appeal on patient's behalf, which would be the request that would go up the chain to be reviewed for the hardship waiver. Tia will assist Juliana Medeiros with this Since patient does not currently have a guardian or fabric worker supervisor assigned, this case may be denied altogether because 1. There are hundreds of thousands of dollars unaccounted for that [facility] wants accounted for 2. Ryne Lynn is still the only one on patient's bank acct 3. Even if patient is inevitably approved for [facility] and placement, someone will need to manage patient's finances and potential participation fees ERIC Original Note: DCP Note Placed call to HCS Speeder Worker Tia, had to leave detailed message asking for an update once available ERIC
--- NOTE | 2022-12-24 15:55 | P.PN_ITS ---
Subjective Subjective Interval history: No updates or complaints. Exam Vital Signs (past 8 hours): - 12/24/22 09:16 12/24/22 08:00 Blood Pressure 143/53 H Pulse Oximetry 97 Oxygen Delivery Method Room Air Oxygen Flow Rate 0 Oxygen Delivery Method Room Air Oxygen Flow Rate 0 Narrative Exam Narrative: GEN: Alert but not oriented, no verbal interaction HEENT:NC, Face symmetric, thin with generalized sarcopenia CHEST: Respiratory excursions symmetric, CTAB CV: RRR, no M/R/G ABD: Soft, NT/ND, BT present in all 4 quadrants, no organomegaly or masses EXTR: warm, well perfused, no C/C/E, generalized sarcopenia SKIN: warm and dry, no rash NEURO: No focal deficits. Objective Labs 12/18/22 05:35 12/19/22 04:40 [facility] Medical History Cerebrovascular accident Chronic GERD Dementia Hyperlipidemia Hypertension Social History household members: children Smoking Status: Former smoker alcohol intake: current Assessment & Plan Assessment & Plan narrative: 1. Unstable discharge for a debilitated elderly male with multiple medical comorbidities Patient remains here under observation status while an appropriate disposition is identified.? He has no acute, decompensated medical issue, but is chronically weak, debilitated, and quite malnourished. 2. History of stroke with left-sided weakness There is mixed information in the chart about his mobility.? In one part of the note, his son reported that the patient gets up and moves about the house freely.? In another, it stated that the son's is unable to lift him out of bed.? He has declined to work with physical therapy throughout his hospitalization.? Therefore, physical therapy orders were discontinued. 3. Progressive transaminitis, undetermined etiology -On December 08, his LFTs were within normal limits. Were continuing to rise over the course of admission here. Etiology is not entirely clear. -Abdominal ultrasound on December 17 revealed no evidence of gallstones, normal-appearing liver, nondilated intrahepatic bile ducts.? Visualized portions of the pancreas appeared normal.? Patient stopped the procedure prior to spleen and left kidney being visualized. -pt denies abd pain, N/V -will recheck labs tomorrow 4. Chronic iron deficiency anemia -pt started on oral PPI since he is on clopidogrel -pt started on oral iron -etiology unclear, currently not good candidate for endoscopy 5. Coronary artery disease Previous stenting.? No acute symptoms.? Continue home meds 6. Hypertension He is normotensive.? Continue usual home meds. 7. Dementia Reported per son.? There is no documentation of dementia and prior records. -stopped Seroquel 8. Depression Continue Zoloft 9. Left arm numbness [place] to be secondary to Lovenox injection.? Brain MRI revealed no acute changes.? He reports it has resolved. Code status Previously documented DNR DNI Prophylaxis Continue Lovenox Disposition Unknown Surrogate decision maker: SonSudhakar VTE Deep Vein Thrombosis/Pulmonary Embolism Present on Admission: No
[2022-12-24 20:00] VITALS: BP 143/67; PULSE 61; RESP 17; TEMP 36.8; O2SAT 98
[2022-12-24 21:01] VITALS: BP 143/67; PULSE 61
[2022-12-24] MEDS: CLOPIDOGREL 75 MG TABLET PO (21:01)
[2022-12-24] MEDS: METOPROLOL ER 25 MG TABLET 12.5 MG PO (21:01)
[2022-12-24] MEDS: SERTRALINE 50 MG TABLET PO (21:02)
[2022-12-24] MEDS: diphenhydrAMINE 25 MG TABLET PO (21:02)
[2022-12-24 21:55] VITALS: BP 138/64; PULSE 60
[2022-12-25] MEDS: PANTOPRAZOLE DR 40 MG TABLET PO (06:48)
[2022-12-25] MEDS: LEVOTHYROXINE 50 MCG TABLET 150 MCG PO (06:48)
[2022-12-25 07:00] VITALS: BP 140/73; PULSE 55; RESP 20; TEMP 36.6; O2SAT 100
[2022-12-25] MEDS: diphenhydrAMINE 25 MG TABLET PO ×2 (07:06→20:55)
[2022-12-25 07:30] VITALS: O2SAT 96
[2022-12-25 07:53] LABS: Alanine Aminotransferase 95 IU/L (<50); Albumin 3.7 g/dL (3.5-5.0); Albumin Globulin Ratio 1.1 (1.0-2.8); Alkaline Phosphatase 389 U/L (38-126); Aspartate Aminotransferase 59 IU/L (17-59); BUN Creatinine Ratio 31.1 (6-22); Bilirubin Total 0.2 mg/dL (0.2-1.3); Blood Urea Nitrogen 32 mg/dL (9-20); Calcium 9.5 mg/dL (8.4-10.2); Carbon Dioxide 26 mmol/L (22-32); Chloride 108 mmol/L (98-107); Estimated Glomerular Filt Rate > 60 mL/min (>60); Globulin 3.4 g/dL (1.7-4.1); Glucose 89 mg/dL (80-110); HEMOLYSIS < 15 (0-50); Potassium 4.6 mmol/L (3.4-5.1); Sodium 139 mmol/L (137-145); Total Protein 7.1 g/dL (6.3-8.2)
[2022-12-25] MEDS: ENOXAPARIN 40 MG/0.4 ML SYRINGE SUBCUT (08:17)
[2022-12-25] MEDS: ACETAMINOPHEN 325 MG TABLET 650 MG PO ×2 (08:17→20:55)
[2022-12-25 08:18] VITALS: BP 140/73; PULSE 63
[2022-12-25] MEDS: FERROUS SULFATE 325 MG TABLET PO ×2 (08:18→17:03)
[2022-12-25] MEDS: lisinopriL 10 MG TABLET PO (08:18)
[2022-12-25] MEDS: GABAPENTIN 100 MG CAPSULE PO ×2 (09:06→20:55)
--- NOTE | 2022-12-25 14:29 | PM.PN.1 ---
Subjective Subjective Interval history: No updates. complained of left leg numbness today, then resolved later on. Exam Vital Signs (past 8 hours): - 12/25/22 07:30 12/25/22 08:18 12/25/22 07:00 Temperature 97.9 F Pulse Rate 63 55 L Respiratory Rate 20 Blood Pressure 140/73 140/73 Pulse Oximetry 96 100 Oxygen Delivery Method Room Air Oxygen Flow Rate 0 0 Oxygen Delivery Method Room Air Oxygen Flow Rate 0 Narrative Exam Narrative: GEN: Alert but not oriented, no verbal interaction HEENT:NC, Face symmetric, thin with generalized sarcopenia CHEST: Respiratory excursions symmetric, CTAB CV: RRR, no M/R/G ABD: Soft, NT/ND, BT present in all 4 quadrants, no organomegaly or masses EXTR: warm, well perfused, no C/C/E, generalized sarcopenia SKIN: warm and dry, no rash NEURO: No focal deficits. Objective Labs 12/18/22 05:35 12/25/22 06:00 Labs: Laboratory Results - last 24 hr 12/25/22 06:00 Sodium 139 Potassium 4.6 Chloride 108 H Carbon Dioxide 26 BUN 32 H Creatinine 1.03 Estimated GFR > 60 BUN/Creatinine Ratio 31.1 H Glucose 89 Calcium 9.5 Total Bilirubin 0.2 AST 59 ALT 95 H Alkaline Phosphatase 389 H Total Protein 7.1 Albumin 3.7 Globulin 3.4 Albumin/Globulin Ratio 1.1 PFSH Medical History Cerebrovascular accident Chronic GERD Dementia Hyperlipidemia Hypertension Social History household members: children Smoking Status: Former smoker alcohol intake: current Assessment & Plan Assessment & Plan narrative: 1. Unstable discharge for a debilitated elderly male with multiple medical comorbidities Patient remains here under observation status while an appropriate disposition is identified.? He has no acute, decompensated medical issue, but is chronically weak, debilitated, and quite malnourished. 2. History of stroke with left-sided weakness There is mixed information in the chart about his mobility.? In one part of the note, his son reported that the patient gets up and moves about the house freely.? In another, it stated that the son's is unable to lift him out of bed.? He has declined to work with physical therapy throughout his hospitalization.? Therefore, physical therapy orders were discontinued. 3. Progressive transaminitis, undetermined etiology -On December 08, his LFTs were within normal limits. Were continuing to rise over the course of admission here. Etiology is not entirely clear. -Abdominal ultrasound on December 17 revealed no evidence of gallstones, normal-appearing liver, nondilated intrahepatic bile ducts.? Visualized portions of the pancreas appeared normal.? Patient stopped the procedure prior to spleen and left kidney being visualized. -pt denies abd pain, N/V -transaminase levels markedly improved on 12/25. No further evaluation in the hospital, recommend 3 month follow up. 4. Chronic iron deficiency anemia -pt started on oral PPI since he is on clopidogrel -pt started on oral iron -etiology unclear, currently not good candidate for endoscopy 5. Coronary artery disease Previous stenting.? No acute symptoms.? Continue home meds 6. Hypertension He is normotensive.? Continue usual home meds. 7. Dementia Reported per son.? There is no documentation of dementia and prior records. -stopped Seroquel 8. Depression Continue Zoloft 9. Left arm numbness [place] to be secondary to Lovenox injection.? Brain MRI revealed no acute changes.? He reports it has resolved. Code status Previously documented DNR DNI Prophylaxis Continue Lovenox Disposition Unknown Surrogate decision maker: SonSudhakar VTE Deep Vein Thrombosis/Pulmonary Embolism Present on Admission: No
[2022-12-25 19:40] VITALS: BP 106/59; PULSE 61; RESP 18; TEMP 36.7; O2SAT 99
[2022-12-25 20:30] VITALS: O2SAT 99
[2022-12-25 20:56] VITALS: BP 106/59; PULSE 61
[2022-12-25] MEDS: CLOPIDOGREL 75 MG TABLET PO (20:56)
[2022-12-25] MEDS: SERTRALINE 50 MG TABLET PO (20:56)
[2022-12-26] MEDS: ACETAMINOPHEN 325 MG TABLET 650 MG PO ×3 (03:40→19:46)
[2022-12-26] MEDS: diphenhydrAMINE 25 MG TABLET PO ×2 (03:41→19:48)
[2022-12-26] MEDS: LEVOTHYROXINE 50 MCG TABLET 150 MCG PO (06:10)
[2022-12-26] MEDS: PANTOPRAZOLE DR 40 MG TABLET PO (06:10)
[2022-12-26 07:00] VITALS: O2SAT 98
[2022-12-26 08:00] VITALS: TEMP 36.6
[2022-12-26 09:23] VITALS: BP 133/63; PULSE 61
[2022-12-26] MEDS: lisinopriL 10 MG TABLET PO (09:23)
[2022-12-26] MEDS: ENOXAPARIN 40 MG/0.4 ML SYRINGE SUBCUT (09:23)
[2022-12-26] MEDS: GABAPENTIN 100 MG CAPSULE PO ×2 (09:23→19:48)
[2022-12-26] MEDS: FERROUS SULFATE 325 MG TABLET PO ×2 (09:24→16:57)
--- NOTE | 2022-12-26 11:16 | PM.PN.1 ---
Subjective Subjective Interval history: No updates. No complaints today. Exam Vital Signs (past 8 hours): - 12/26/22 09:23 12/26/22 07:00 Pulse Rate 61 Blood Pressure 133/63 Pulse Oximetry 98 Oxygen Delivery Method Room Air Oxygen Flow Rate 0 Oxygen Delivery Method Room Air Oxygen Flow Rate 0 Narrative Exam Narrative: GEN: Alert but not oriented, no verbal interaction HEENT:NC, Face symmetric, thin with generalized sarcopenia CHEST: Respiratory excursions symmetric, CTAB CV: RRR, no M/R/G ABD: Soft, NT/ND, BT present in all 4 quadrants, no organomegaly or masses EXTR: warm, well perfused, no C/C/E, generalized sarcopenia SKIN: warm and dry, no rash NEURO: No focal deficits. Objective Labs 12/18/22 05:35 12/25/22 06:00 [facility] Medical History Cerebrovascular accident Chronic GERD Dementia Hyperlipidemia Hypertension Social History household members: children Smoking Status: Former smoker alcohol intake: current Assessment & Plan Assessment & Plan narrative: 1. Unstable discharge for a debilitated elderly male with multiple medical comorbidities Patient remains here under observation status while an appropriate disposition is identified.? He has no acute, decompensated medical issue, but is chronically weak, debilitated, and quite malnourished. 2. History of stroke with left-sided weakness There is mixed information in the chart about his mobility.? In one part of the note, his son reported that the patient gets up and moves about the house freely.? In another, it stated that the son's is unable to lift him out of bed.? He has declined to work with physical therapy throughout his hospitalization.? Therefore, physical therapy orders were discontinued. 3. Progressive transaminitis, undetermined etiology -On December 08, his LFTs were within normal limits. Were continuing to rise over the course of admission here. Etiology is not entirely clear. -Abdominal ultrasound on December 17 revealed no evidence of gallstones, normal-appearing liver, nondilated intrahepatic bile ducts.? Visualized portions of the pancreas appeared normal.? Patient stopped the procedure prior to spleen and left kidney being visualized. -pt denies abd pain, N/V -transaminase levels markedly improved on 12/25. No further evaluation in the hospital, recommend 3 month follow up. 4. Chronic iron deficiency anemia -pt started on oral PPI since he is on clopidogrel -pt started on oral iron -etiology unclear, currently not good candidate for endoscopy 5. Coronary artery disease Previous stenting.? No acute symptoms.? Continue home meds 6. Hypertension He is normotensive.? Continue usual home meds. 7. Dementia Reported per son.? There is no documentation of dementia and prior records. -stopped Seroquel 8. Depression Continue Zoloft 9. Left arm numbness [place] to be secondary to Lovenox injection.? Brain MRI revealed no acute changes.? He reports it has resolved. Code status Previously documented DNR DNI Prophylaxis Continue Lovenox Disposition Unknown Surrogate decision maker: SonSudhakar VTE Deep Vein Thrombosis/Pulmonary Embolism Present on Admission: No
--- NOTE | 2022-12-26 17:05 | PC.NURSE ---
pt is rude, out of line, throw a dirty brief on the floor, very unpleasant, hard to deal and very demanding. pt using signs asks the pt is if he can used his words pt get mad and told me to shot myself. I politely talked to the and asks what is wrong and what can i help him to feel better, pt throw again all his blankets on the floor. Offer pt at least to get up pt said he cannot walk. Pt put middle finger when i tried to open his milk. At this point I dont know what to do. Nurse is aware,and I observed pt only being rude or being out of line to women staffs.
[2022-12-26 19:00] VITALS: O2SAT 98
[2022-12-26] MEDS: METOPROLOL ER 25 MG TABLET 12.5 MG PO (19:46)
[2022-12-26] MEDS: CLOPIDOGREL 75 MG TABLET PO (19:47)
[2022-12-26] MEDS: SERTRALINE 50 MG TABLET PO (19:48)
[2022-12-26 20:00] VITALS: BP 139/68; PULSE 62; RESP 18; TEMP 36.9; O2SAT 98
[2022-12-26] MEDS: HYDROCODONE/ACET 10/325 TABLET 1 TAB PO (21:05)
[2022-12-26 21:19] VITALS: BP 132/68; PULSE 64
[2022-12-27] MEDS: HYDROCODONE/ACET 10/325 TABLET 1 TAB PO ×5 (00:47→17:41)
[2022-12-27] MEDS: ACETAMINOPHEN 325 MG TABLET 650 MG PO ×3 (03:59→22:06)
[2022-12-27] MEDS: LEVOTHYROXINE 50 MCG TABLET 150 MCG PO (05:09)
[2022-12-27 07:55] VITALS: O2SAT 96
[2022-12-27 08:23] VITALS: BP 128/63; PULSE 68; RESP 19; TEMP 36.6; O2SAT 98
[2022-12-27 08:56] VITALS: BP 128/63; PULSE 71
[2022-12-27] MEDS: lisinopriL 10 MG TABLET PO (08:56)
[2022-12-27] MEDS: ENOXAPARIN 40 MG/0.4 ML SYRINGE SUBCUT (08:56)
[2022-12-27] MEDS: diphenhydrAMINE 25 MG TABLET PO ×3 (08:56→23:37)
[2022-12-27] MEDS: FERROUS SULFATE 325 MG TABLET PO ×2 (08:57→17:42)
[2022-12-27] MEDS: GABAPENTIN 100 MG CAPSULE PO ×2 (08:57→22:10)
--- NOTE | 2022-12-27 13:07 | P.PN_ITS ---
Subjective Subjective Interval history: No new nursing or patient complaints. Exam Vital Signs (past 8 hours): - 12/27/22 08:23 12/27/22 08:56 12/27/22 07:55 Temperature 97.8 F Pulse Rate 68 71 Respiratory Rate 19 Blood Pressure 128/63 128/63 Pulse Oximetry 98 96 Oxygen Delivery Method Room Air Oxygen Flow Rate 0 0 Oxygen Delivery Method Room Air Oxygen Flow Rate 0 Narrative Exam Narrative: GEN: Alert but not oriented, chatty. Watching a TV show. HEENT:NC, Face symmetric, thin with generalized sarcopenia CHEST: Respiratory excursions symmetric, CTAB CV: RRR, no M/R/G ABD: Soft, NT/ND, BT present in all 4 quadrants, no organomegaly or masses EXTR: warm, well perfused, no C/C/E, generalized sarcopenia SKIN: warm and dry, no rash NEURO: No focal deficits. Objective Labs 12/18/22 05:35 12/25/22 06:00 [facility] Medical History Cerebrovascular accident Chronic GERD Dementia Hyperlipidemia Hypertension Social History household members: children Smoking Status: Former smoker alcohol intake: current Assessment & Plan Assessment & Plan narrative: Plan unchanged from yesterday: 1. Unstable discharge for a debilitated elderly male with multiple medical co- morbidities Patient remains here under observation status while an appropriate disposition is identified.? He has no acute, decompensated medical issue, but is chronically weak, debilitated, and quite malnourished. 2. History of stroke with left-sided weakness There is mixed information in the chart about his mobility.? In one part of the note, his son reported that the patient gets up and moves about the house freely.? In another, it stated that the son's is unable to lift him out of bed.? He has declined to work with physical therapy throughout his hosp italization.? Therefore, physical therapy orders were discontinued. 3. Progressive transaminitis, undetermined etiology -On December 08, his LFTs were within normal limits. Were continuing to rise over the course of admission here. Etiology is not entirely clear. -Abdominal ultrasound on December 17 revealed no evidence of gallstones, normal- appearing liver, nondilated intrahepatic bile ducts.? Visualized portions of the pancreas appeared normal.? Patient stopped the procedure prior to spleen and left kidney being visualized. -pt denies abd pain, N/V -transaminase levels markedly improved on 12/25. No further evaluation in the hospital, recommend 3 month follow up. 4. Chronic iron deficiency anemia -pt started on oral PPI since he is on clopidogrel -pt started on oral iron -etiology unclear, currently not good candidate for endoscopy 5. Coronary artery disease Previous stenting.? No acute symptoms.? Continue home meds 6. Hypertension He is normotensive.? Continue usual home meds. 7. Dementia Reported per son.? There is no documentation of dementia and prior records. -stopped Seroquel 8. Depression Continue Zoloft 9. Left arm numbness [place] to be secondary to Lovenox injection.? Brain MRI revealed no acute changes.? He reports it has resolved. Code status Previously documented DNR DNI Prophylaxis Continue Lovenox Disposition Unknown Surrogate decision maker: SonSudhakar VTE Deep Vein Thrombosis/Pulmonary Embolism Present on Admission: No
[2022-12-27 19:20] VITALS: BP 110/55; PULSE 57; RESP 16; TEMP 37; O2SAT 98
[2022-12-27 22:06] VITALS: BP 142/42; PULSE 61
[2022-12-27] MEDS: METOPROLOL ER 25 MG TABLET 12.5 MG PO (22:06)
[2022-12-27] MEDS: CLOPIDOGREL 75 MG TABLET PO (22:06)
[2022-12-27] MEDS: SERTRALINE 50 MG TABLET PO (22:10)
[2022-12-27 22:53] VITALS: BP 129/63; PULSE 63
[2022-12-28 00:02] VITALS: O2SAT 98
[2022-12-28] MEDS: ACETAMINOPHEN 325 MG TABLET 650 MG PO ×3 (03:27→16:28)
[2022-12-28] MEDS: LEVOTHYROXINE 50 MCG TABLET 150 MCG PO (06:14)
[2022-12-28] MEDS: PANTOPRAZOLE DR 40 MG TABLET PO (06:14)
--- NOTE | 2022-12-28 06:51 | PC.NURSE ---
Pt. found on the floor around 0320 this morning by the entrance of the pt's bathroom door. Pt. stated that he did not fall but slid himself on the side of the bed and drag himself to the bathroom using his bottom to take a shower. IRIS Cohen and no further test done since pt. did not c/o pain nor any new injury is noted. VSS.
[2022-12-28 07:00] VITALS: O2SAT 95
[2022-12-28 07:40] VITALS: BP 130/68; PULSE 60; RESP 17; TEMP 37.1; O2SAT 99
[2022-12-28] MEDS: lisinopriL 10 MG TABLET PO (08:48)
[2022-12-28] MEDS: GABAPENTIN 100 MG CAPSULE PO ×2 (08:48→21:13)
[2022-12-28] MEDS: FERROUS SULFATE 325 MG TABLET PO ×2 (08:48→16:28)
[2022-12-28] MEDS: ENOXAPARIN 40 MG/0.4 ML SYRINGE SUBCUT (08:48)
[2022-12-28] MEDS: diphenhydrAMINE 25 MG TABLET PO ×2 (10:17→18:55)
[2022-12-28] MEDS: HYDROCODONE/ACET 10/325 TABLET 1 TAB PO ×3 (10:17→23:12)
--- NOTE | 2022-12-28 10:25 | P.PN_ITS ---
Subjective Subjective Interval history: Sleeping quietly. Did not disturb. No new nursing complaints. Exam Vital Signs (past 8 hours): - 12/28/22 07:00 12/28/22 07:40 Temperature 98.8 F Pulse Rate 60 Respiratory Rate 17 Blood Pressure 130/68 Pulse Oximetry 95 99 Oxygen Delivery Method Room Air Oxygen Flow Rate 0 Oxygen Delivery Method Room Air Oxygen Flow Rate 0 Narrative Exam Narrative: GEN: Sleeping. Does not appear to be in any acute medical distress. HEENT:NC, Face symmetric CHEST: Respiratory excursions symmetric CV: Peripheral pulse normal EXTR: Noted, generalized sarcopenia SKIN: warm and dry Objective Labs 12/18/22 05:35 12/25/22 06:00 PFSH Medical History Cerebrovascular accident Chronic GERD Dementia Hyperlipidemia Hypertension Social History household members: children Smoking Status: Former smoker alcohol intake: current Assessment & Plan Assessment & Plan narrative: Plan unchanged. 1. Unstable discharge for a debilitated elderly male with multiple medical co- morbidities Patient remains here under observation status while an appropriate disposition is identified.? He has no acute, decompensated medical issue, but is chronically weak, debilitated, and quite malnourished. 2. History of stroke with left-sided weakness There is mixed information in the chart about his mobility.? In one part of the note, his son reported that the patient gets up and moves about the house freely.? In another, it stated that the son's is unable to lift him out of bed.? He has declined to work with physical therapy throughout his hospitalization.? Therefore, physical therapy orders were discontinued. 3. Progressive transaminitis, undetermined etiology -On December 08, his LFTs were within normal limits. Were continuing to rise over the course of admission here. Etiology is not entirely clear. -Abdominal ultrasound on December 17 revealed no evidence of gallstones, normal- appearing liver, nondilated intrahepatic bile ducts.? Visualized portions of the pancreas appeared normal.? Patient stopped the procedure prior to spleen and left kidney being visualized. -pt denies abd pain, N/V -transaminase levels markedly improved on 12/25. No further evaluation in the hospital, recommend 3 month follow up. 4. Chronic iron deficiency anemia -pt started on oral PPI since he is on clopidogrel -pt started on oral iron -etiology unclear, currently not good candidate for endoscopy 5. Coronary artery disease Previous stenting.? No acute symptoms.? Continue home meds 6. Hypertension He is normotensive.? Continue usual home meds. 7. Dementia Reported per son.? There is no documentation of dementia and prior records. -stopped Seroquel 8. Depression Continue Zoloft 9. Left arm numbness [place] to be secondary to Lovenox injection.? Brain MRI revealed no acute changes.? He reports it has resolved. Code status Previously documented DNR DNI Prophylaxis Continue Lovenox Disposition Unknown Surrogate decision maker: SonSudhakar VTE Deep Vein Thrombosis/Pulmonary Embolism Present on Admission: No
--- NOTE | 2022-12-28 18:48 | PC.NURSE ---
a/o, voices needs by use of call light. appetite is good, ate well, accepted snacks between meals. 1pa ADL assistance, uses urinal. able to assist w/ bed mobility. almost agreed to let me trim his alvarez and eyebrows. but will try again tomorrow. PRN norco and benadryl given x 1 w/ good result. slept between meals, did not get OOB. will try again tomorrow to encourage to get more active. turning frequently by self, likes to stay warm w/ lots of blankets. accepts pills whole w/ sips of water. frequent safety and room checks thru the shift. bed alarm is on, call light w/in reach.
[2022-12-28 20:00] VITALS: BP 103/49; PULSE 60; RESP 20; TEMP 36.7; O2SAT 97
[2022-12-28] MEDS: CLOPIDOGREL 75 MG TABLET PO (21:13)
[2022-12-28] MEDS: SERTRALINE 50 MG TABLET PO (21:13)
--- NOTE | 2022-12-28 21:43 | PC.NURSE ---
Patient is alert but disoriented to date and situation. Breath sounds CTA with RA sat of 97%. HRR but bradycardic in 50's apical and BP low at 103/49; discussed with Noel SIMMONS, and order to hold Metoprolol tonight. Denies nausea. BT present and abdomen is soft. Voiding per urinal but is sometimes incontinent of urine so is wearing a brief. Is able to turn himself in bed. Gait not assessed as is not up at this time. Complains of back pain and is receiving scheduled tylenol as well as prn vicodin; currently states pain is 6/10 but last vicodin was given at 1854 so too early to give additional and patient states he can wait until next dose is due. Refuses to wear SCD's. Fall risk score is high and bed alarm is activated.
[2022-12-29] MEDS: PANTOPRAZOLE DR 40 MG TABLET PO (06:09)
[2022-12-29] MEDS: LEVOTHYROXINE 50 MCG TABLET 150 MCG PO (06:09)
[2022-12-29 07:00] VITALS: BP 133/49; PULSE 56; RESP 18; TEMP 36.7; O2SAT 99
--- NOTE | 2022-12-29 08:02 | PC.NURSE ---
Addendum entered by Jannette Soto R.N. 12/29/22 15:04: Patients son Sudhakar visited with patient for a couple of hours today,he left.Discharge planning aware of this. Addendum entered by Jannette Soto R.N. 12/29/22 12:52: Patients son is here visiting, Holley from discharge planning is aware. Original Note: Patient is sleeping soundly.
[2022-12-29] MEDS: GABAPENTIN 100 MG CAPSULE PO ×2 (09:37→21:09)
[2022-12-29] MEDS: ENOXAPARIN 40 MG/0.4 ML SYRINGE SUBCUT (09:37)
[2022-12-29] MEDS: ACETAMINOPHEN 325 MG TABLET 650 MG PO ×2 (09:37→21:07)
[2022-12-29] MEDS: FERROUS SULFATE 325 MG TABLET PO ×2 (09:37→16:48)
[2022-12-29] MEDS: diphenhydrAMINE 25 MG TABLET PO ×2 (09:37→18:38)
--- NOTE | 2022-12-29 13:38 | CM.DPC ---
Addendum entered by CHARITY Bradshaw 12/29/22 15:05: ADD: Per RN, unfortunately son Sudhakar left without staff noticing and SW was unable to meet in person with him and attempted to call and left msg at his place of work. SW attempted to research Payee options in [place] and left msg with [facility] and [facility] to determine the option regarding Protective Payee Procedure for this patient. He is in need of relocation associate placement and if Protective Payee assignment is not an option, it would seem he qualifies for ?extremely difficult case? and would meet criteria for Direct Vendor Payment?? Protective Payee seems to be an easier process than guardianship that could be helpful towards placement of the pt in a more timely manner from the hospital and awaiting return calls from [facility] and [facility]. BF Original Note: DCP Cont: SW left msgs with [facility] Medeiros ([phone]) and [facility] [employer] Tia ([phone]) and [facility] [employer] Blaine ([phone]) inquiring if appeal has been filed yet in regards to the Medicaid Waiver request as son did not turn in financial documentation in the allotted timeframe. SW also inquired about possible Payee or Payee agencies and the process that might happen between [facility]. Unfortunately, today Friday 12/29 is a federal holiday and likely these agencies are not open until tomorrow . Per RN, pt's son arrived bedside to visit and brought pt some food. SW attempted to meet bedside with pt and son but pt refused SW to enter but son did confirm he is Sudhakar and attempted to get pt to allow SW to check in bedside but pt agitated and refused. SW requested RN sitting outside the room to alert SW when son leaves the room in order to better check in with son and provide update and attempt to get movement on pt leaving the hospital. RN kindly agreed. SW called Abilio Macias, community automotive quality manager, and left msg for him as well. Plan: SW to follow closely for ongoing coordination attempts at getting pt placed outside of the hospital. CHARITY Bradshaw
--- NOTE | 2022-12-29 13:59 | PM.PN.1 ---
Subjective Subjective Interval history: No updates. No complaints today. Exam Vital Signs (past 8 hours): - 12/29/22 07:58 12/29/22 07:00 Temperature 98.0 F Pulse Rate 56 L Respiratory Rate 18 Blood Pressure 133/49 L Pulse Oximetry 99 Oxygen Delivery Method Room Air Oxygen Flow Rate 0 Oxygen Delivery Method Room Air Oxygen Flow Rate 0 Narrative Exam Narrative: GEN: Alert but not oriented, no verbal interaction HEENT:NC, Face symmetric, thin with generalized sarcopenia CHEST: Respiratory excursions symmetric, CTAB CV: RRR, no M/R/G ABD: Soft, NT/ND EXTR: warm, well perfused, no C/C/E, generalized sarcopenia SKIN: warm and dry, no rash NEURO: No focal deficits. Objective Labs 12/18/22 05:35 12/25/22 06:00 [facility] Medical History Cerebrovascular accident Chronic GERD Dementia Hyperlipidemia Hypertension Social History household members: children Smoking Status: Former smoker alcohol intake: current Assessment & Plan Assessment & Plan narrative: Plan unchanged. 1. Unstable discharge for a debilitated elderly male with multiple medical co-morbidities Patient remains here under observation status while an appropriate disposition is identified.? He has no acute, decompensated medical issue, but is chronically weak, debilitated, and quite malnourished. 2. History of stroke with left-sided weakness There is mixed information in the chart about his mobility.? In one part of the note, his son reported that the patient gets up and moves about the house freely.? In another, it stated that the son's is unable to lift him out of bed.? He has declined to work with physical therapy throughout his hospitalization.? Therefore, physical therapy orders were discontinued. 3. Progressive transaminitis, undetermined etiology -On December 08, his LFTs were within normal limits. Were continuing to rise over the course of admission here. Etiology is not entirely clear. -Abdominal ultrasound on December 17 revealed no evidence of gallstones, normal-appearing liver, nondilated intrahepatic bile ducts.? Visualized portions of the pancreas appeared normal.? Patient stopped the procedure prior to spleen and left kidney being visualized. -pt denies abd pain, N/V -transaminase levels markedly improved on 6/15. No further evaluation in the hospital, recommend 3 month follow up. 4. Chronic iron deficiency anemia -pt started on oral PPI since he is on clopidogrel -pt started on oral iron -etiology unclear, currently not good candidate for endoscopy 5. Coronary artery disease Previous stenting.? No acute symptoms.? Continue home meds 6. Hypertension He is normotensive.? Continue usual home meds. 7. Dementia Reported per son.? There is no documentation of dementia and prior records. -stopped Seroquel 8. Depression Continue Zoloft 9. Left arm numbness [place] to be secondary to Lovenox injection.? Brain MRI revealed no acute changes.? He reports it has resolved. Code status Previously documented DNR DNI Prophylaxis Continue Lovenox Disposition Unknown Surrogate decision maker: SonSudhakar VTE Deep Vein Thrombosis/Pulmonary Embolism Present on Admission: No
[2022-12-29 20:00] VITALS: BP 150/59; PULSE 72; RESP 19; TEMP 36.8; O2SAT 99
[2022-12-29] MEDS: CLOPIDOGREL 75 MG TABLET PO (21:07)
[2022-12-29] MEDS: METOPROLOL IR 25 MG TABLET 12.5 MG PO (21:07)
[2022-12-29] MEDS: SERTRALINE 50 MG TABLET PO (21:09)
--- NOTE | 2022-12-30 00:05 | PC.NURSE ---
Patient is alert and mostly oriented tonight; did not know day of month. Breath sounds CTA with RA sat of 99%. HRR. BP elevated tonight at 150/59 but did not get Metoprolol either last night or this morning related to low BP. Denies nausea. Incontinent of stool and sometimes urine; wearing a brief. Does urinate in urinal amounts ranging from 100 to 200cc each time; denies dysuria. Is able to turn himself in bed. Has not been getting out of bed but did agree tonight to get up and walked with walker and 1 assist into bathroom and was showered. Denied pain tonight; receiving scheduled Tylenol. Fall risk score is high and bed alarm is activated.
[2022-12-30] MEDS: diphenhydrAMINE 25 MG TABLET PO ×3 (00:26→16:50)
[2022-12-30] MEDS: LEVOTHYROXINE 50 MCG TABLET 150 MCG PO (06:04)
[2022-12-30] MEDS: PANTOPRAZOLE DR 40 MG TABLET PO (06:04)
[2022-12-30 09:00] VITALS: BP 138/70; PULSE 80; RESP 20; TEMP 37; O2SAT 96
[2022-12-30] MEDS: ACETAMINOPHEN 325 MG TABLET 650 MG PO ×3 (09:34→20:45)
[2022-12-30] MEDS: GABAPENTIN 100 MG CAPSULE PO ×2 (09:34→20:47)
[2022-12-30] MEDS: FERROUS SULFATE 325 MG TABLET PO ×2 (09:34→16:35)
[2022-12-30] MEDS: METOPROLOL IR 25 MG TABLET 12.5 MG PO ×2 (09:35→20:45)
[2022-12-30] MEDS: lisinopriL 10 MG TABLET PO (09:35)
--- NOTE | 2022-12-30 14:34 | P.PN_ITS ---
Subjective Subjective Interval history: No updates. No complaints today. Exam Vital Signs (past 8 hours): - 12/30/22 09:00 12/30/22 09:00 Temperature 98.6 F Pulse Rate 80 Respiratory Rate 20 Blood Pressure 138/70 Pulse Oximetry 96 Oxygen Delivery Method Room Air Oxygen Flow Rate 0 Oxygen Delivery Method Room Air Oxygen Flow Rate 0 Narrative Exam Narrative: GEN: Alert but not oriented, no verbal interaction HEENT:NC, Face symmetric, thin with generalized sarcopenia CHEST: Respiratory excursions symmetric, CTAB CV: RRR, no M/R/G ABD: Soft, NT/ND EXTR: warm, well perfused, no C/C/E, generalized sarcopenia SKIN: warm and dry, no rash NEURO: No focal deficits. Objective Labs 12/18/22 05:35 12/25/22 06:00 [facility] Medical History Cerebrovascular accident Chronic GERD Dementia Hyperlipidemia Hypertension Social History household members: children Smoking Status: Former smoker alcohol intake: current Assessment & Plan Assessment & Plan narrative: Plan unchanged. 1. Unstable discharge for a debilitated elderly male with multiple medical co- morbidities Patient remains here under observation status while an appropriate disposition is identified.? He has no acute, decompensated medical issue, but is chronically weak, debilitated, and quite malnourished. 2. History of stroke with left-sided weakness There is mixed information in the chart about his mobility.? In one part of the note, his son reported that the patient gets up and moves about the house freely.? In another, it stated that the son's is unable to lift him out of bed.? He has declined to work with physical therapy throughout his hospitalization.? Therefore, physical therapy orders were discontinued. 3. Progressive transaminitis, undetermined etiology -On December 08, his LFTs were within normal limits. Were continuing to rise over the course of admission here. Etiology is not entirely clear. -Abdominal ultrasound on December 17 revealed no evidence of gallstones, normal- appearing liver, nondilated intrahepatic bile ducts.? Visualized portions of the pancreas appeared normal.? Patient stopped the procedure prior to spleen and left kidney being visualized. -pt denies abd pain, N/V -transaminase levels markedly improved on 12/25. No further evaluation in the hospital, recommend 3 month follow up. 4. Chronic iron deficiency anemia -pt started on oral PPI since he is on clopidogrel -pt started on oral iron -etiology unclear, currently not good candidate for endoscopy 5. Coronary artery disease Previous stenting.? No acute symptoms.? Continue home meds 6. Hypertension He is normotensive.? Continue usual home meds. 7. Dementia Reported per son.? There is no documentation of dementia and prior records. -stopped Seroquel 8. Depression Continue Zoloft 9. Left arm numbness [place] to be secondary to Lovenox injection.? Brain MRI revealed no acute changes.? He reports it has resolved. Code status Previously documented DNR DNI Prophylaxis Continue Lovenox Disposition Unknown Surrogate decision maker: SonSudhakar VTE Deep Vein Thrombosis/Pulmonary Embolism Present on Admission: No
--- NOTE | 2022-12-30 16:18 | CM.DPC ---
DCP/continued: CM team made several calls to the following individuals today: Blaine Krishna with [employer] [facility] spikemaking supervisor Tia and [facility] CM Juliana Dumont. As of 4:20pm today have not heard back from any of them. In addition, emails were sent to all including [facility] supervisors Dianne Galarza and Berta Minor. UR team sending case to EHR for review. Per Charity davis possibility that patient might meet criteria now for malnutrition? P: Pending. Awaiting state assistance with either guardianship OR Medicaid waiver for detention placement. Several facilities have been contacted but none will comitt until they know payor source. LORETO
[2022-12-30 19:00] VITALS: O2SAT 100
[2022-12-30] MEDS: CLOPIDOGREL 75 MG TABLET PO (20:44)
[2022-12-30] MEDS: SERTRALINE 50 MG TABLET PO (20:45)
[2022-12-30 22:07] VITALS: BP 104/51; PULSE 64; RESP 21; TEMP 36.2; O2SAT 100
[2022-12-31] MEDS: PANTOPRAZOLE DR 40 MG TABLET PO (06:25)
[2022-12-31] MEDS: LEVOTHYROXINE 50 MCG TABLET 150 MCG PO (06:25)
[2022-12-31 07:00] VITALS: BP 123/69; PULSE 56; RESP 16; TEMP 36.7; O2SAT 97
--- NOTE | 2022-12-31 08:16 | P.PN_ITS ---
Subjective Subjective Interval history: No complaints. Exam Vital Signs (past 8 hours): Oxygen Delivery Method Room Air Oxygen Flow Rate 0 Narrative Exam Narrative: GEN: Alert but not oriented, no verbal interaction HEENT:NC, Face symmetric, thin with generalized sarcopenia CHEST: Respiratory excursions symmetric, CTAB CV: RRR, no M/R/G ABD: Soft, NT/ND EXTR: warm, well perfused, no C/C/E, generalized sarcopenia SKIN: warm and dry, no rash NEURO: No focal deficits. Objective Labs 12/18/22 05:35 12/25/22 06:00 [facility] Medical History Cerebrovascular accident Chronic GERD Dementia Hyperlipidemia Hypertension Social History household members: children Smoking Status: Former smoker alcohol intake: current Assessment & Plan Assessment & Plan narrative: Plan unchanged. 1. Unstable discharge for a debilitated elderly male with multiple medical co- morbidities Patient remains here under observation status while an appropriate disposition is identified.? He has no acute, decompensated medical issue, but is chronically weak, debilitated, and quite malnourished. 2. History of stroke with left-sided weakness There is mixed information in the chart about his mobility.? In one part of the note, his son reported that the patient gets up and moves about the house freely.? In another, it stated that the son's is unable to lift him out of bed.? He has declined to work with physical therapy throughout his hospitalization.? Therefore, physical therapy orders were discontinued. 3. Progressive transaminitis, undetermined etiology -On December 08, his LFTs were within normal limits. Were continuing to rise over the course of admission here. Etiology is not entirely clear. -Abdominal ultrasound on December 17 revealed no evidence of gallstones, normal- appearing liver, nondilated intrahepatic bile ducts.? Visualized portions of the pancreas appeared normal.? Patient stopped the procedure prior to spleen and left kidney being visualized. -pt denies abd pain, N/V -transaminase levels markedly improved on 12/25. No further evaluation in the hospital, recommend 3 month follow up. 4. Chronic iron deficiency anemia -pt started on oral PPI since he is on clopidogrel -pt started on oral iron -etiology unclear, currently not good candidate for endoscopy 5. Coronary artery disease Previous stenting.? No acute symptoms.? Continue home meds 6. Hypertension He is normotensive.? Continue usual home meds. 7. Dementia Reported per son.? There is no documentation of dementia and prior records. -stopped Seroquel 8. Depression Continue Zoloft 9. Left arm numbness [place] to be secondary to Lovenox injection.? Brain MRI revealed no acute changes.? He reports it has resolved. Code status Previously documented DNR DNI Prophylaxis Continue Lovenox Disposition Unknown Surrogate decision maker: SonSudhakar VTE Deep Vein Thrombosis/Pulmonary Embolism Present on Admission: No
[2022-12-31 08:58] VITALS: BP 123/69; PULSE 56
[2022-12-31] MEDS: HYDROCODONE/ACET 10/325 TABLET 1 TAB PO ×3 (08:58→21:29)
[2022-12-31] MEDS: lisinopriL 10 MG TABLET PO (08:58)
[2022-12-31] MEDS: GABAPENTIN 100 MG CAPSULE PO ×2 (08:58→20:41)
[2022-12-31] MEDS: FERROUS SULFATE 325 MG TABLET PO (08:58)
[2022-12-31] MEDS: METOPROLOL IR 25 MG TABLET 12.5 MG PO ×2 (08:59→20:41)
[2022-12-31] MEDS: diphenhydrAMINE 25 MG TABLET PO ×2 (14:43→20:41)
[2022-12-31] MEDS: ACETAMINOPHEN 325 MG TABLET 650 MG PO ×2 (14:43→20:40)
[2022-12-31 19:00] VITALS: BP 109/52; PULSE 56; RESP 20; TEMP 36.7; O2SAT 99
[2022-12-31] MEDS: SERTRALINE 50 MG TABLET PO (20:41)
[2022-12-31] MEDS: CLOPIDOGREL 75 MG TABLET PO (20:41)
[2023-01-01] MEDS: HYDROCODONE/ACET 10/325 TABLET 1 TAB PO ×3 (04:45→18:51)
[2023-01-01] MEDS: diphenhydrAMINE 25 MG TABLET PO ×3 (04:46→23:48)
[2023-01-01] MEDS: LEVOTHYROXINE 50 MCG TABLET 150 MCG PO (04:53)
[2023-01-01] MEDS: PANTOPRAZOLE DR 40 MG TABLET PO (04:54)
[2023-01-01] MEDS: GABAPENTIN 100 MG CAPSULE PO ×2 (08:56→20:22)
[2023-01-01] MEDS: METOPROLOL IR 25 MG TABLET 12.5 MG PO ×2 (08:57→20:22)
[2023-01-01 09:02] VITALS: BP 127/76
[2023-01-01] MEDS: lisinopriL 10 MG TABLET PO (09:02)
[2023-01-01 09:07] VITALS: BP 127/56; PULSE 55; RESP 17; TEMP 36.5; O2SAT 100
[2023-01-01 09:55] VITALS: O2SAT 100
--- NOTE | 2023-01-01 12:16 | P.PN_ITS ---
Subjective Subjective Date Patient Seen: 01/01/23 Interval history: No complaints or new developments. Awaiting placement. Exam Vital Signs (past 8 hours): - 01/01/23 09:02 01/01/23 09:07 01/01/23 09:55 Temperature 97.7 F Pulse Rate 55 L Respiratory Rate 17 Blood Pressure 127/76 127/56 L Pulse Oximetry 100 100 Oxygen Delivery Method Room Air Oxygen Delivery Method Room Air Oxygen Flow Rate 0 Narrative Exam Narrative: Gen: alert, NAD Objective Labs 12/18/22 05:35 12/25/22 06:00 [facility] Medical History Cerebrovascular accident Chronic GERD Dementia Hyperlipidemia Hypertension Social History household members: children Smoking Status: Former smoker alcohol intake: current Assessment & Plan Assessment & Plan narrative: 1. Unstable discharge for a debilitated elderly male with multiple medical co-morbidities Patient remains here under observation status while an appropriate disposition is identified.? He has no acute, decompensated medical issue, but is chronically weak, debilitated, and quite malnourished. 2. History of stroke with left-sided weakness There is mixed information in the chart about his mobility.? In one part of the note, his son reported that the patient gets up and moves about the house freely.? In another, it stated that the son's is unable to lift him out of bed.? He has declined to work with physical therapy throughout his hospitalization.? Therefore, physical therapy orders were discontinued. 3. Progressive transaminitis, undetermined etiology -On December 08, his LFTs were within normal limits. Were continuing to rise over the course of admission here. Etiology is not entirely clear. -Abdominal ultrasound on December 17 revealed no evidence of gallstones, normal-a ppearing liver, nondilated intrahepatic bile ducts.? Visualized portions of the pancreas appeared normal.? Patient stopped the procedure prior to spleen and left kidney being visualized. -pt denies abd pain, N/V -transaminase levels markedly improved on 12/25. No further evaluation in the hospital, recommend 3 month follow up. 4. Chronic iron deficiency anemia -pt started on oral PPI since he is on clopidogrel -pt started on oral iron -etiology unclear, currently not good candidate for endoscopy 5. Coronary artery disease Previous stenting.? No acute symptoms.? Continue home meds 6. Hypertension He is normotensive.? Continue usual home meds. 7. Dementia Reported per son.? There is no documentation of dementia and prior records. -stopped Seroquel 8. Depression Continue Zoloft 9. Left arm numbness [place] to be secondary to Lovenox injection.? Brain MRI revealed no acute changes.? He reports it has resolved. Code status Previously documented DNR DNI Prophylaxis Continue Lovenox Disposition Unknown Surrogate decision maker: SonSudhakar VTE Deep Vein Thrombosis/Pulmonary Embolism Present on Admission: No
[2023-01-01] MEDS: ACETAMINOPHEN 325 MG TABLET 650 MG PO ×2 (14:58→20:22)
--- NOTE | 2023-01-01 15:08 | CM.DPC ---
DCP/continued: ADMINISTRATIVE SUPPORT COORDINATOR/Director has been involved and assisting ADMINISTRATIVE SUPPORT COORDINATOR/Holley with obtaining needed information for the state so that patient can qualify for Medicaid. It was suggested by LICO/María that hospital file for guardianship. María sent paperwork via email for patient to sign for assistance obtaining information from other family members. ADMINISTRATIVE SUPPORT COORDINATOR and Director met [facility] patient today. Patient Alert and Oriented x3. Patient aware that he is in the hospital until long-term placement can be found. Patient understood this might take awhile. Patent reports that before he came to [place]. he lived in [place] with his spouse of 40yrs. Spouse and this is when patient moved to [place]. to live with his son. The sale of his residence in [place] has been barrier to getting patient on Medcaid/ALCIDES because there is large sum of money that is unaccounted for. Patient reports that he is unaware of how much money he has? Patient reports that his son Shane does not tell him. Numerous [employer] reports have been placed by CM team when patient has been brought into the ED by son and left. [employer] county supervisor Blaine Krishna sent confirmation via email that case was pending. As far as CM team can tell [employer] has not filed for guardianship as outpatient which was previously suggested. Attempts to reach [employer] county supervisor on 12-31 and 01-01 have been unsuccessful. Only received email indicating case was pending. After discussion with patient today CHARITY Babb to call report into [employer] Patient has no idea where is money is or how much he has? In addition, son has failed to cooperate with state to get patient on Medicaid so that he can be safely placed. Instead son has continued to bring patient to the hospital. Director sent email to Administration today with suggestion for guardianship and the agency used often by [facility]. In addition, meeting scheduled tomorrow with [facility]/Berta Minor who is the Acute Hospital Muck Miner Blasting. Quality Perch Machine Inspector Yahir Mckeon updated and sent invite. Unclear if they will be able to offer additional solutions or programs that patient might be eligible for in his current situation. Patient agreeable for [facility] to be his designated payee therefore, CM team hopeful we will get additional options tomorrow 01-02-23. Lug Breaker And Wire Puller Yahir S. updated on the above and has contacted well testing operator for the potential need for hospital to file for guardianship. Yahir given name and number of son/Shane and involved agencies: Blaine with [employer] and María with [facility]. Yahir will remain in contact with well testing operator re: guardianship and he will call son/Shane and state. CM team requested meeting with all agencies on 12-31 however, never heard back from county supervisor Blaine Garcia with [employer] CM team continues to stay in contact with [facility] interested in accepting patient. Unfortunately until guardianship or payee can be determined they cannot accept. Director off tomorrow 01-02 but UR/Lead Charity wooten and CHARITY/Holley here to answer questions, attend meeting at 1:30pm and continue to work with Yahir from Quality on plan. P: Pending see notes today from Director Jalyn and CHARITY/Holley. CHARITY Duque
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
[2023-01-01 19:00] VITALS: O2SAT 98
[2023-01-01 19:56] VITALS: BP 128/54; PULSE 60; RESP 17; TEMP 36.4; O2SAT 93
[2023-01-01 20:20] VITALS: BP 126/52; PULSE 54; RESP 18; TEMP 36.7; O2SAT 97
[2023-01-01] MEDS: CLOPIDOGREL 75 MG TABLET PO (20:23)
[2023-01-01] MEDS: SERTRALINE 50 MG TABLET PO (20:23)
[2023-01-02] MEDS: LEVOTHYROXINE 50 MCG TABLET 150 MCG PO (05:36)
[2023-01-02] MEDS: PANTOPRAZOLE DR 40 MG TABLET PO (06:27)
[2023-01-02 08:30] VITALS: BP 111/54; PULSE 55; RESP 16; TEMP 36.6; O2SAT 98
[2023-01-02 09:00] VITALS: O2SAT 98
[2023-01-02 09:14] VITALS: BP 107/66; PULSE 77
[2023-01-02] MEDS: lisinopriL 10 MG TABLET PO (09:14)
[2023-01-02] MEDS: GABAPENTIN 100 MG CAPSULE PO ×2 (09:14→20:44)
[2023-01-02] MEDS: diphenhydrAMINE 25 MG TABLET PO ×2 (09:14→15:27)
[2023-01-02] MEDS: METOPROLOL IR 25 MG TABLET 12.5 MG PO ×2 (09:15→20:43)
[2023-01-02] MEDS: ACETAMINOPHEN 325 MG TABLET 650 MG PO ×2 (09:47→15:27)
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
--- NOTE | 2023-01-02 17:11 | PM.PN.1 ---
Subjective Subjective Interval history: No changes. Exam Vital Signs (past 8 hours): - 01/02/23 09:14 Pulse Rate 77 Blood Pressure 107/66 Oxygen Delivery Method Room Air Oxygen Flow Rate 0 Narrative Exam Narrative: Gen: alert, NAD Objective Labs 12/18/22 05:35 12/25/22 06:00 [facility] Medical History Cerebrovascular accident Chronic GERD Dementia Hyperlipidemia Hypertension Social History household members: children Smoking Status: Former smoker alcohol intake: current Assessment & Plan Assessment & Plan narrative: 1. Unstable discharge for a debilitated elderly male with multiple medical co-morbidities Patient remains here under observation status while an appropriate disposition is identified.? He has no acute, decompensated medical issue, but is chronically weak, debilitated, and quite malnourished. 2. History of stroke with left-sided weakness There is mixed information in the chart about his mobility.? In one part of the note, his son reported that the patient gets up and moves about the house freely.? In another, it stated that the son's is unable to lift him out of bed.? He has declined to work with physical therapy throughout his hospitalization.? Therefore, physical therapy orders were discontinued. 3. Progressive transaminitis, undetermined etiology -On December 08, his LFTs were within normal limits. Were continuing to rise over the course of admission here. Etiology is not entirely clear. -Abdominal ultrasound on December 17 revealed no evidence of gallstones, normal-appearing liver, nondilated intrahepatic bile ducts.? Visualized portions of the pancreas appeared normal.? Patient stopped the procedure prior to spleen and left kidney being visualized. -pt denies abd pain, N/V -transaminase levels markedly improved on 12/25. No further evaluation in the hospital, recommend 3 month follow up. 4. Chronic iron deficiency anemia -pt started on oral PPI since he is on clopidogrel -pt started on oral iron -etiology unclear, currently not good candidate for endoscopy 5. Coronary artery disease Previous stenting.? No acute symptoms.? Continue home meds 6. Hypertension He is normotensive.? Continue usual home meds. 7. Dementia Reported per son.? There is no documentation of dementia and prior records. -stopped Seroquel 8. Depression Continue Zoloft 9. Left arm numbness [place] to be secondary to Lovenox injection.? Brain MRI revealed no acute changes.? He reports it has resolved. Code status Previously documented DNR DNI Prophylaxis Continue Lovenox Disposition Unknown Surrogate decision maker: SonSudhakar VTE Deep Vein Thrombosis/Pulmonary Embolism Present on Admission: No
[2023-01-02 19:00] VITALS: O2SAT 98
[2023-01-02] MEDS: DOCUSATE 100 MG CAPSULE PO ×2 (19:46→20:44)
[2023-01-02] MEDS: polyethylene glycoL 3350 17 GM POWD.PACK PO (19:46)
[2023-01-02] MEDS: CLOPIDOGREL 75 MG TABLET PO (20:43)
[2023-01-02] MEDS: SERTRALINE 50 MG TABLET PO (20:44)
[2023-01-02 20:45] VITALS: BP 139/73; PULSE 63; RESP 18; TEMP 36.8; O2SAT 99
[2023-01-03] MEDS: LEVOTHYROXINE 50 MCG TABLET 150 MCG PO (06:34)
[2023-01-03] MEDS: PANTOPRAZOLE DR 40 MG TABLET PO (06:34)
[2023-01-03 07:00] VITALS: BP 137/69; PULSE 63; RESP 16; TEMP 36.2; O2SAT 98
--- NOTE | 2023-01-03 08:25 | P.PN_ITS ---
Subjective Subjective Interval history: No changes. Copied forward daily. Exam Vital Signs (past 8 hours): Oxygen Delivery Method Room Air Oxygen Flow Rate 0 Narrative Exam Narrative: Gen: alert, NAD Objective Labs 12/18/22 05:35 12/25/22 06:00 [facility] Medical History Cerebrovascular accident Chronic GERD Dementia Hyperlipidemia Hypertension Social History household members: children Smoking Status: Former smoker alcohol intake: current Assessment & Plan Assessment & Plan narrative: 1. Unstable discharge for a debilitated elderly male with multiple medical co- morbidities Patient remains here under observation status while an appropriate disposition is identified.? He has no acute, decompensated medical issue, but is chronically weak, debilitated, and quite malnourished. 2. History of stroke with left-sided weakness There is mixed information in the chart about his mobility.? In one part of the note, his son reported that the patient gets up and moves about the house marco comfort.? In another, it stated that the son's is unable to lift him out of bed.? He has declined to work with physical therapy throughout his hospitalization.? Therefore, physical therapy orders were discontinued. 3. Progressive transaminitis, undetermined etiology -On December 08, his LFTs were within normal limits. Were continuing to rise over the course of admission here. Etiology is not entirely clear. -Abdominal ultrasound on December 17 revealed no evidence of gallstones, normal- appearing liver, nondilated intrahepatic bile ducts.? Visualized portions of the pancreas appeared normal.? Patient stopped the procedure prior to spleen and left kidney being visualized. -pt denies abd pain, N/V -transaminase levels markedly improved on 12/25. No further evaluation in the hospital, recommend 3 month follow up. 4. Chronic iron deficiency anemia -pt started on oral PPI since he is on clopidogrel -pt started on oral iron -etiology unclear, currently not good candidate for endoscopy 5. Coronary artery disease Previous stenting.? No acute symptoms.? Continue home meds 6. Hypertension He is normotensive.? Continue usual home meds. 7. Dementia Reported per son.? There is no documentation of dementia and prior records. -stopped Seroquel 8. Depression Continue Zoloft 9. Left arm numbness [place] to be secondary to Lovenox injection.? Brain MRI revealed no acute changes.? He reports it has resolved. Code status Previously documented DNR DNI Prophylaxis Continue Lovenox Disposition Unknown Surrogate decision maker: Son, Sudhakar Asher VTE Deep Vein Thrombosis/Pulmonary Embolism Present on Admission: No
[2023-01-03 09:31] VITALS: BP 137/69; PULSE 62
[2023-01-03] MEDS: FERROUS SULFATE 325 MG TABLET PO ×2 (09:31→17:44)
[2023-01-03] MEDS: METOPROLOL IR 25 MG TABLET 12.5 MG PO ×2 (09:31→20:10)
[2023-01-03] MEDS: polyethylene glycoL 3350 17 GM POWD.PACK PO (09:31)
[2023-01-03] MEDS: lisinopriL 10 MG TABLET PO (09:31)
[2023-01-03] MEDS: DOCUSATE 100 MG CAPSULE PO ×2 (09:32→20:11)
[2023-01-03] MEDS: GABAPENTIN 100 MG CAPSULE PO ×2 (09:32→20:11)
[2023-01-03] MEDS: ACETAMINOPHEN 325 MG TABLET 650 MG PO ×2 (09:33→23:43)
[2023-01-03 09:37] VITALS: O2SAT 98
[2023-01-03 19:00] VITALS: O2SAT 97
[2023-01-03 20:00] VITALS: BP 105/50; PULSE 58; RESP 18; TEMP 36.7; O2SAT 98
[2023-01-03] MEDS: diphenhydrAMINE 25 MG TABLET PO (20:10)
[2023-01-03] MEDS: SERTRALINE 50 MG TABLET PO (20:11)
[2023-01-03] MEDS: CLOPIDOGREL 75 MG TABLET PO (20:11)
[2023-01-04] MEDS: LEVOTHYROXINE 50 MCG TABLET 150 MCG PO (06:02)
[2023-01-04] MEDS: PANTOPRAZOLE DR 40 MG TABLET PO (06:02)
[2023-01-04 07:00] VITALS: BP 145/70; PULSE 58; RESP 16; O2SAT 99
[2023-01-04 09:26] VITALS: BP 145/70
[2023-01-04] MEDS: DOCUSATE 100 MG CAPSULE PO (09:26)
[2023-01-04] MEDS: FERROUS SULFATE 325 MG TABLET PO (09:26)
[2023-01-04] MEDS: lisinopriL 10 MG TABLET PO (09:26)
[2023-01-04] MEDS: polyethylene glycoL 3350 17 GM POWD.PACK PO (09:26)
[2023-01-04] MEDS: GABAPENTIN 100 MG CAPSULE PO ×2 (09:26→20:32)
[2023-01-04] MEDS: diphenhydrAMINE 25 MG TABLET PO ×2 (09:27→21:18)
[2023-01-04] MEDS: ACETAMINOPHEN 325 MG TABLET 650 MG PO ×2 (09:27→17:36)
[2023-01-04] MEDS: METOPROLOL IR 25 MG TABLET 12.5 MG PO (09:28)
--- NOTE | 2023-01-04 10:54 | P.PN_ITS ---
Subjective Subjective Interval history: No new complaints. Has back pain that he gets medications for. Quietly watching TV. Exam Vital Signs (past 8 hours): - 01/04/23 07:00 01/04/23 09:26 01/04/23 07:00 Pulse Rate 58 L Respiratory Rate 16 Blood Pressure 145/70 H 145/70 H Pulse Oximetry 99 99 Oxygen Delivery Method Room Air Oxygen Flow Rate 0 0 Oxygen Delivery Method Room Air Oxygen Flow Rate 0 Narrative Exam Narrative: General: Appears to be in no acute distress. A cachectic-appearing. HEENT: Trachea midline. Extraocular movements normal CHEST: Respiratory excursions symmetric CV:? Peripheral pulse normal EXTR:? Noted, generalized sarcopenia SKIN: warm and dry Objective Labs 12/18/22 05:35 12/25/22 06:00 [facility] Medical History Cerebrovascular accident Chronic GERD Dementia Hyperlipidemia Hypertension Social History household members: children Smoking Status: Former smoker alcohol intake: current Assessment & Plan Assessment & Plan narrative: 1. Unstable discharge for a debilitated elderly male with multiple medical co- morbidities Patient remains here under observation status while an appropriate disposition is identified.? He has no acute, decompensated medical issue, but is chronically weak, debilitated, has back pain and quite malnourished. 2. History of stroke with left-sided weakness There is mixed information in the chart about his mobility.? In one part of the note, his son reported that the patient gets up and moves about the house freely.? In another, it stated that the son's is unable to lift him out of bed.? He has declined to work with physical therapy throughout his hospitalization.? Therefore, physical therapy orders were discontinued. 3. Progressive transaminitis, undetermined etiology -On December 08, his LFTs were within normal limits. Were continuing to rise over the course of admission here. Etiology is not entirely clear. -Abdominal ultrasound on December 17 revealed no evidence of gallstones, normal- appearing liver, nondilated intrahepatic bile ducts.? Visualized portions of the pancreas appeared normal.? Patient stopped the procedure prior to spleen and left kidney being visualized. -pt denies abd pain, N/V -transaminase levels markedly improved on 12/25. No further evaluation in the hospital, recommend 3 month follow up. 4. Chronic iron deficiency anemia -pt on oral PPI since he is on clopidogrel -pt on oral iron -etiology unclear, currently not good candidate for endoscopy 5. Coronary artery disease Previous stenting.? No acute symptoms.? Continue home meds 6. Hypertension He is normotensive.? Continue usual home meds. 7. Dementia Reported per son.? There is no documentation of dementia and prior records. -stopped Seroquel 8. Depression Continue Zoloft 9. Left arm numbness [place] to be secondary to Lovenox injection during this admission.? Brain MRI revealed no acute changes.? Left arm numbness has resolved. Code status Previously documented DNR DNI Prophylaxis Continue Lovenox Disposition Unknown Surrogate decision maker: SonSudhakar VTE Deep Vein Thrombosis/Pulmonary Embolism Present on Admission: No
[2023-01-04 19:00] VITALS: BP 109/53; PULSE 66; RESP 20; TEMP 36.8; O2SAT 98
[2023-01-04 19:50] VITALS: O2SAT 98
[2023-01-04 20:31] VITALS: BP 111/52; PULSE 58; RESP 18
[2023-01-04] MEDS: CLOPIDOGREL 75 MG TABLET PO (20:32)
[2023-01-04] MEDS: SERTRALINE 50 MG TABLET PO (20:32)
[2023-01-04] MEDS: HYDROCODONE/ACET 10/325 TABLET 1 TAB PO (20:32)
[2023-01-05] MEDS: diphenhydrAMINE 25 MG TABLET PO ×4 (04:18→22:24)
[2023-01-05] MEDS: HYDROCODONE/ACET 10/325 TABLET 1 TAB PO ×3 (04:44→22:24)
[2023-01-05] MEDS: LEVOTHYROXINE 50 MCG TABLET 150 MCG PO (06:03)
[2023-01-05] MEDS: PANTOPRAZOLE DR 40 MG TABLET PO (06:04)
[2023-01-05 07:00] VITALS: BP 118/57; PULSE 53; RESP 22; TEMP 36.8; O2SAT 99
[2023-01-05] MEDS: GABAPENTIN 100 MG CAPSULE PO ×2 (10:17→20:44)
[2023-01-05] MEDS: polyethylene glycoL 3350 17 GM POWD.PACK PO (10:17)
[2023-01-05] MEDS: ACETAMINOPHEN 325 MG TABLET 650 MG PO ×2 (10:17→20:44)
[2023-01-05] MEDS: lisinopriL 10 MG TABLET PO (10:18)
[2023-01-05] MEDS: FERROUS SULFATE 325 MG TABLET PO ×2 (10:19→18:03)
--- NOTE | 2023-01-05 10:56 | PC.NURSE ---
Patient given benadryl for itching.
--- NOTE | 2023-01-05 12:49 | PM.PN.1 ---
Subjective Subjective Interval history: No new nursing or patient complaints. Exam Vital Signs (past 8 hours): - 01/05/23 07:00 01/05/23 10:53 Temperature 98.2 F Pulse Rate 53 L Respiratory Rate 22 Blood Pressure 118/57 L Pulse Oximetry 99 Oxygen Delivery Method Room Air Oxygen Delivery Method Room Air Oxygen Flow Rate 0 Narrative Exam Narrative: General:? Appears to be in no acute distress.? A cachectic-appearing. HEENT:? Trachea midline.? Extraocular movements normal CHEST: Respiratory excursions symmetric CV:? Peripheral pulse normal EXTR:? Noted, generalized sarcopenia SKIN: warm and dry Objective Labs 12/18/22 05:35 12/25/22 06:00 [facility] Medical History Cerebrovascular accident Chronic GERD Dementia Hyperlipidemia Hypertension Social History household members: children Smoking Status: Former smoker alcohol intake: current Assessment & Plan Assessment & Plan narrative: 1. Unstable discharge for a debilitated elderly male with multiple medical co-morbidities Patient remains here under observation status while an appropriate disposition is identified.? He has no acute, decompensated medical issue, but is chronically weak, debilitated, has back pain and quite malnourished. 2. History of stroke with left-sided weakness There is mixed information in the chart about his mobility.? In one part of the note, his son reported that the patient gets up and moves about the house freely.? In another, it stated that the son's is unable to lift him out of bed.? He has declined to work with physical therapy throughout his hospitalization.? Therefore, physical therapy orders were discontinued. 3. Progressive transaminitis, undetermined etiology -On December 08, his LFTs were within normal limits. Were continuing to rise over the course of admission here. Etiology is not entirely clear. -Abdominal ultrasound on December 17 revealed no evidence of gallstones, normal-appearing liver, nondilated intrahepatic bile ducts.? Visualized portions of the pancreas appeared normal.? Patient stopped the procedure prior to spleen and left kidney being visualized. -pt denies abd pain, N/V -transaminase levels markedly improved on 12/25. No further evaluation in the hospital, recommend 3 month follow up. 4. Chronic iron deficiency anemia -pt on oral PPI since he is on clopidogrel -pt on oral iron -etiology unclear, currently not good candidate for endoscopy 5. Coronary artery disease Previous stenting.? No acute symptoms.? Continue home meds 6. Hypertension He is normotensive.? Continue usual home meds. 7. Dementia Reported per son.? There is no documentation of dementia and prior records. -stopped Seroquel 8. Depression Continue Zoloft 9. Left arm numbness [place] to be secondary to Lovenox injection during this admission.? Brain MRI revealed no acute changes.? Left arm numbness has resolved. Code status Previously documented DNR DNI Prophylaxis Continue Lovenox Disposition Unknown Surrogate decision maker: SonSudhakar VTE Deep Vein Thrombosis/Pulmonary Embolism Present on Admission: No
[2023-01-05 19:00] VITALS: BP 108/56; PULSE 60; RESP 18; TEMP 36.8; O2SAT 98
[2023-01-05] MEDS: SERTRALINE 50 MG TABLET PO (20:44)
[2023-01-05] MEDS: CLOPIDOGREL 75 MG TABLET PO (20:44)
[2023-01-06] MEDS: LEVOTHYROXINE 50 MCG TABLET 150 MCG PO (06:17)
[2023-01-06] MEDS: diphenhydrAMINE 25 MG TABLET PO ×3 (06:17→22:08)
[2023-01-06] MEDS: PANTOPRAZOLE DR 40 MG TABLET PO (06:19)
[2023-01-06 07:50] VITALS: O2SAT 97
[2023-01-06] MEDS: FERROUS SULFATE 325 MG TABLET PO ×2 (09:35→16:44)
[2023-01-06] MEDS: GABAPENTIN 100 MG CAPSULE PO ×2 (09:36→20:54)
[2023-01-06] MEDS: lisinopriL 10 MG TABLET PO (09:36)
[2023-01-06] MEDS: METOPROLOL IR 25 MG TABLET 12.5 MG PO (09:36)
[2023-01-06] MEDS: ACETAMINOPHEN 325 MG TABLET 650 MG PO (09:40)
[2023-01-06] MEDS: HYDROCODONE/ACET 10/325 TABLET 1 TAB PO ×3 (09:41→20:53)
[2023-01-06 10:43] VITALS: RESP 18
--- NOTE | 2023-01-06 12:35 | PM.PN.1 ---
Subjective Subjective Interval history: No new nursing or patient complaints. Awaiting guardianship per case management. Exam Vital Signs (past 8 hours): - 01/06/23 10:43 Respiratory Rate 18 Oxygen Delivery Method Room Air Oxygen Flow Rate 0 Narrative Exam Narrative: General:? Appears to be in no acute distress.? A cachectic-appearing. HEENT:? Trachea midline.? Extraocular movements normal CHEST: Respiratory excursions symmetric CV:? Peripheral pulse normal EXTR:? Noted, generalized sarcopenia SKIN: warm and dry Objective Labs 12/18/22 05:35 12/25/22 06:00 [facility] Medical History Cerebrovascular accident Chronic GERD Dementia Hyperlipidemia Hypertension Social History household members: children Smoking Status: Former smoker alcohol intake: current Assessment & Plan Assessment & Plan narrative: 1. Unstable discharge for a debilitated elderly male with multiple medical co-morbidities Patient remains here under observation status while an appropriate disposition is identified.? He has no acute, decompensated medical issue, but is chronically weak, debilitated, has back pain and quite malnourished. 2. History of stroke with left-sided weakness There is mixed information in the chart about his mobility.? In one part of the note, his son reported that the patient gets up and moves about the house freely.? In another, it stated that the son's is unable to lift him out of bed.? He has declined to work with physical therapy throughout his hospitalization.? Therefore, physical therapy orders were discontinued. 3. Progressive transaminitis, undetermined etiology -On December 08, his LFTs were within normal limits. Were continuing to rise over the course of admission here. Etiology is not entirely clear. -Abdominal ultrasound on December 17 revealed no evidence of gallstones, normal-appearing liver, nondilated intrahepatic bile ducts.? Visualized portions of the pancreas appeared normal.? Patient stopped the procedure prior to spleen and left kidney being visualized. -pt denies abd pain, N/V -transaminase levels markedly improved on 12/25. No further evaluation in the hospital, recommend 3 month follow up. 4. Chronic iron deficiency anemia -pt on oral PPI since he is on clopidogrel -pt on oral iron -etiology unclear, currently not good candidate for endoscopy 5. Coronary artery disease Previous stenting.? No acute symptoms.? Continue home meds 6. Hypertension He is normotensive.? Continue usual home meds. 7. Dementia Reported per son.? There is no documentation of dementia and prior records. -stopped Seroquel 8. Depression Continue Zoloft 9. Left arm numbness [place] to be secondary to Lovenox injection during this admission.? Brain MRI revealed no acute changes.? Left arm numbness has resolved. Code status Previously documented DNR DNI Prophylaxis Continue Lovenox Disposition Pending guardianship per case management, appreciate assistance with placement. Surrogate decision maker: Sudhakar Michele VTE Deep Vein Thrombosis/Pulmonary Embolism Present on Admission: No
[2023-01-06 19:00] VITALS: O2SAT 98
[2023-01-06] MEDS: CLOPIDOGREL 75 MG TABLET PO (20:53)
[2023-01-06] MEDS: DOCUSATE 100 MG CAPSULE PO (20:54)
[2023-01-06] MEDS: SERTRALINE 50 MG TABLET PO (20:54)
[2023-01-06 21:28] VITALS: BP 120/59; PULSE 56; RESP 18; TEMP 36.6; O2SAT 98
[2023-01-07] MEDS: LEVOTHYROXINE 50 MCG TABLET 150 MCG PO (06:20)
[2023-01-07] MEDS: PANTOPRAZOLE DR 40 MG TABLET PO (06:20)
[2023-01-07 07:00] VITALS: BP 123/63; PULSE 57; RESP 16; TEMP 36.6; O2SAT 99
[2023-01-07 07:50] VITALS: O2SAT 95
[2023-01-07] MEDS: HYDROCODONE/ACET 10/325 TABLET 1 TAB PO ×2 (09:16→16:06)
[2023-01-07] MEDS: METOPROLOL IR 25 MG TABLET 12.5 MG PO ×2 (09:16→20:47)
[2023-01-07] MEDS: GABAPENTIN 100 MG CAPSULE PO ×2 (09:16→20:46)
[2023-01-07] MEDS: lisinopriL 10 MG TABLET PO (09:17)
[2023-01-07] MEDS: FERROUS SULFATE 325 MG TABLET PO ×2 (09:17→16:07)
[2023-01-07] MEDS: diphenhydrAMINE 25 MG TABLET PO ×3 (09:17→22:18)
--- NOTE | 2023-01-07 13:52 | P.PN_ITS ---
Subjective Subjective Interval history: Awaiting guardianship per case management. He is wanting his nails trimmed on his toes, unfortunately there are no nail clippers in the hospital. Exam Vital Signs (past 8 hours): - 01/07/23 07:00 01/07/23 07:50 01/07/23 07:50 Temperature 97.9 F Pulse Rate 57 L Respiratory Rate 16 Blood Pressure 123/63 Pulse Oximetry 99 95 Oxygen Delivery Method Room Air Room Air Oxygen Flow Rate 0 Oxygen Delivery Method Room Air Oxygen Flow Rate 0 Narrative Exam Narrative: General:? Appears to be in no acute distress.? A cachectic-appearing. HEENT:? Trachea midline.? Extraocular movements normal CHEST: Respiratory excursions symmetric CV:? Peripheral pulse normal EXTR:? Noted, generalized sarcopenia SKIN: warm and dry Objective Labs 12/18/22 05:35 12/25/22 06:00 [facility] Medical History Cerebrovascular accident Chronic GERD Dementia Hyperlipidemia Hypertension Social History household members: children Smoking Status: Former smoker alcohol intake: current Assessment & Plan Assessment & Plan narrative: 1. Unstable discharge for a debilitated elderly male with multiple medical co-morbidities Patient remains here under observation status while an appropriate disposition is identified.? He has no acute, decompensated medical issue, but is chronically weak, debilitated, has back pain and quite malnourished. 2. History of stroke with left-sided weakness There is mixed information in the chart about his mobility.? In one part of the note, his son reported that the patient gets up and moves about the house freely.? In another, it stated that the son's is unable to lift him out of bed.? He has declined to work with physical therapy throughout his hospitalization.? Therefore, physical therapy orders were discontinued. 3. Progressive transaminitis, undetermined etiology -On December 08, his LFTs were within normal limits. Were continuing to rise over the course of admission here. Etiology is not entirely clear. -Abdominal ultrasound on December 17 revealed no evidence of gallstones, normal- appearing liver, nondilated intrahepatic bile ducts.? Visualized portions of the pancreas appeared normal.? Patient stopped the procedure prior to spleen and left kidney being visualized. -pt denies abd pain, N/V -transaminase levels markedly improved on 12/25. No further evaluation in the h ospital, recommend 3 month follow up. 4. Chronic iron deficiency anemia -pt on oral PPI since he is on clopidogrel -pt on oral iron -etiology unclear, currently not good candidate for endoscopy 5. Coronary artery disease Previous stenting.? No acute symptoms.? Continue home meds 6. Hypertension He is normotensive.? Continue usual home meds. 7. Dementia Reported per son.? There is no documentation of dementia and prior records. -stopped Seroquel 8. Depression Continue Zoloft 9. Left arm numbness [place] to be secondary to Lovenox injection during this admission.? Brain MRI revealed no acute changes.? Left arm numbness has resolved. Code status Previously documented DNR DNI Prophylaxis Continue Lovenox Disposition Pending guardianship per case management, appreciate assistance with placement. Surrogate decision maker: SonSudhakar VTE Deep Vein Thrombosis/Pulmonary Embolism Present on Admission: No
[2023-01-07 19:45] VITALS: O2SAT 95
[2023-01-07 20:00] VITALS: BP 114/62; PULSE 53; RESP 17; TEMP 36.5; O2SAT 98
[2023-01-07] MEDS: SERTRALINE 50 MG TABLET PO (20:46)
[2023-01-07] MEDS: DOCUSATE 100 MG CAPSULE PO (20:47)
[2023-01-07] MEDS: ACETAMINOPHEN 325 MG TABLET 650 MG PO (20:48)
[2023-01-07] MEDS: CLOPIDOGREL 75 MG TABLET PO (21:11)
--- NOTE | 2023-01-08 05:13 | PC.NURSE ---
This morning around 0500 this TICKET COUNTER went into the patients room to change the patient. On the side of the bed closest to the window there appeared to be a puddle of yellow looking fluid. When asked the patient if it was urine patient stated that when the staff empties and flushes his urinal they leave water in the bottom and he dropped it. When telling the patient that it was not water but was urine patient stated that he had dropped the his urinal on the floor. It should be noted that the urinal was on the bedside table upright and that he had not called throughout the night to have it empty or that he had dropped it. Patient was changed and repositioned, warm blankets were provided, call light within reach and all needs were met
[2023-01-08] MEDS: LEVOTHYROXINE 50 MCG TABLET 150 MCG PO (06:19)
[2023-01-08] MEDS: PANTOPRAZOLE DR 40 MG TABLET PO (06:19)
[2023-01-08] MEDS: diphenhydrAMINE 25 MG TABLET PO ×2 (06:19→20:19)
[2023-01-08 07:00] VITALS: BP 131/60; PULSE 56; RESP 20; TEMP 36.7; O2SAT 98
[2023-01-08 07:34] VITALS: O2SAT 98
--- NOTE | 2023-01-08 09:26 | PM.PN.1 ---
Subjective Subjective Interval history: Awaiting guardianship per case management. No changes. Exam Vital Signs (past 8 hours): - 01/08/23 07:34 Pulse Oximetry 98 Oxygen Delivery Method Room Air Oxygen Flow Rate 0 Oxygen Delivery Method Room Air Oxygen Flow Rate 0 Narrative Exam Narrative: General:? Appears to be in no acute distress.? A cachectic-appearing. HEENT:? Trachea midline.? Extraocular movements normal CHEST: Respiratory excursions symmetric CV:? Peripheral pulse normal EXTR:? Noted, generalized sarcopenia SKIN: warm and dry Objective Labs 12/18/22 05:35 12/25/22 06:00 [facility] Medical History Cerebrovascular accident Chronic GERD Dementia Hyperlipidemia Hypertension Social History household members: children Smoking Status: Former smoker alcohol intake: current Assessment & Plan Assessment & Plan narrative: 1. Unstable discharge for a debilitated elderly male with multiple medical co-morbidities Patient remains here under observation status while an appropriate disposition is identified.? He has no acute, decompensated medical issue, but is chronically weak, debilitated, has back pain and quite malnourished. 2. History of stroke with left-sided weakness There is mixed information in the chart about his mobility.? In one part of the note, his son reported that the patient gets up and moves about the house freely.? In another, it stated that the son's is unable to lift him out of bed.? He has declined to work with physical therapy throughout his hospitalization.? Therefore, physical therapy orders were discontinued. 3. Progressive transaminitis, undetermined etiology -On December 08, his LFTs were within normal limits. Were continuing to rise over the course of admission here. Etiology is not entirely clear. -Abdominal ultrasound on December 17 revealed no evidence of gallstones, normal-appearing liver, nondilated intrahepatic bile ducts.? Visualized portions of the pancreas appeared normal.? Patient stopped the procedure prior to spleen and left kidney being visualized. -pt denies abd pain, N/V -transaminase levels markedly improved on 12/25. No further evaluation in the hospital, recommend 3 month follow up. 4. Chronic iron deficiency anemia -pt on oral PPI since he is on clopidogrel -pt on oral iron -etiology unclear, currently not good candidate for endoscopy 5. Coronary artery disease Previous stenting.? No acute symptoms.? Continue home meds 6. Hypertension He is normotensive.? Continue usual home meds. 7. Dementia Reported per son.? There is no documentation of dementia and prior records. -stopped Seroquel 8. Depression Continue Zoloft 9. Left arm numbness [place] to be secondary to Lovenox injection during this admission.? Brain MRI revealed no acute changes.? Left arm numbness has resolved. Code status Previously documented DNR DNI Prophylaxis Continue Lovenox Disposition Pending guardianship per case management, appreciate assistance with placement. Surrogate decision maker: Sudhakar Michele VTE Deep Vein Thrombosis/Pulmonary Embolism Present on Admission: No
--- NOTE | 2023-01-08 10:15 | PC.NURSE ---
Day shift: Pt c/o toenails needing to be cut. Dr Scanlon made aware.
[2023-01-08] MEDS: ENOXAPARIN 40 MG/0.4 ML SYRINGE SUBCUT (10:36)
[2023-01-08 10:37] VITALS: BP 136/69; PULSE 54
[2023-01-08] MEDS: GABAPENTIN 100 MG CAPSULE PO ×2 (10:37→20:19)
[2023-01-08] MEDS: DOCUSATE 100 MG CAPSULE PO ×2 (10:37→20:19)
[2023-01-08] MEDS: lisinopriL 10 MG TABLET PO (10:37)
[2023-01-08] MEDS: ACETAMINOPHEN 325 MG TABLET 650 MG PO ×2 (10:37→20:19)
[2023-01-08] MEDS: polyethylene glycoL 3350 17 GM POWD.PACK PO (10:38)
[2023-01-08 19:00] VITALS: O2SAT 99
[2023-01-08] MEDS: CLOPIDOGREL 75 MG TABLET PO (20:20)
[2023-01-08] MEDS: SERTRALINE 50 MG TABLET PO (20:20)
[2023-01-08] MEDS: METOPROLOL IR 25 MG TABLET 12.5 MG PO (20:20)
[2023-01-08 20:58] VITALS: BP 119/57; PULSE 61; RESP 17; TEMP 36.4; O2SAT 99
[2023-01-09] MEDS: LEVOTHYROXINE 50 MCG TABLET 150 MCG PO (06:36)
[2023-01-09] MEDS: PANTOPRAZOLE DR 40 MG TABLET PO (06:36)
[2023-01-09] MEDS: diphenhydrAMINE 25 MG TABLET PO ×2 (06:36→20:30)
[2023-01-09 08:00] VITALS: O2SAT 98
[2023-01-09 08:55] VITALS: BP 106/83; PULSE 60; RESP 17; TEMP 36.8; O2SAT 99
[2023-01-09 08:58] VITALS: BP 126/68; PULSE 55
[2023-01-09] MEDS: METOPROLOL IR 25 MG TABLET 12.5 MG PO ×2 (08:58→20:31)
[2023-01-09] MEDS: lisinopriL 10 MG TABLET PO (08:58)
[2023-01-09] MEDS: ACETAMINOPHEN 325 MG TABLET 650 MG PO ×2 (08:58→20:33)
[2023-01-09] MEDS: polyethylene glycoL 3350 17 GM POWD.PACK PO (08:58)
[2023-01-09] MEDS: GABAPENTIN 100 MG CAPSULE PO ×2 (08:58→20:29)
[2023-01-09] MEDS: HYDROCODONE/ACET 10/325 TABLET 1 TAB PO ×3 (08:59→20:31)
[2023-01-09] MEDS: FERROUS SULFATE 325 MG TABLET PO ×2 (08:59→17:10)
[2023-01-09] MEDS: DOCUSATE 100 MG CAPSULE PO ×2 (08:59→20:31)
--- NOTE | 2023-01-09 14:53 | PM.PN.1 ---
Subjective Subjective Interval history: No changes. Exam Vital Signs (past 8 hours): - 01/09/23 08:00 01/09/23 08:55 01/09/23 08:58 Temperature 98.2 F Pulse Rate 60 55 L Respiratory Rate 17 Blood Pressure 106/83 126/68 Pulse Oximetry 98 99 Oxygen Delivery Method Room Air Oxygen Flow Rate 0 0 Oxygen Delivery Method Room Air Oxygen Flow Rate 0 Narrative Exam Narrative: General:? Appears to be in no acute distress.? A cachectic-appearing. HEENT:? Trachea midline.? Extraocular movements normal CHEST: Respiratory excursions symmetric CV:? Peripheral pulse normal EXTR:? Noted, generalized sarcopenia SKIN: warm and dry Objective Labs 12/18/22 05:35 12/25/22 06:00 [facility] Medical History Cerebrovascular accident Chronic GERD Dementia Hyperlipidemia Hypertension Social History household members: children Smoking Status: Former smoker alcohol intake: current Assessment & Plan Assessment & Plan narrative: 1. Unstable discharge for a debilitated elderly male with multiple medical co-morbidities Patient remains here under observation status while an appropriate disposition is identified.? He has no acute, decompensated medical issue, but is chronically weak, debilitated, has back pain and quite malnourished. 2. History of stroke with left-sided weakness There is mixed information in the chart about his mobility.? In one part of the note, his son reported that the patient gets up and moves about the house freely.? In another, it stated that the son's is unable to lift him out of bed.? He has declined to work with physical therapy throughout his hospitalization.? Therefore, physical therapy orders were discontinued. 3. Progressive transaminitis, undetermined etiology -On December 08, his LFTs were within normal limits. Were continuing to rise over the course of admission here. Etiology is not entirely clear. -Abdominal ultrasound on December 17 revealed no evidence of gallstones, normal-appearing liver, nondilated intrahepatic bile ducts.? Visualized portions of the pancreas appeared normal.? Patient stopped the procedure prior to spleen and left kidney being visualized. -pt denies abd pain, N/V -transaminase levels markedly improved on 12/25. No further evaluation in the hospital, recommend 3 month follow up. 4. Chronic iron deficiency anemia -pt on oral PPI since he is on clopidogrel -pt on oral iron -etiology unclear, currently not good candidate for endoscopy 5. Coronary artery disease Previous stenting.? No acute symptoms.? Continue home meds 6. Hypertension He is normotensive.? Continue usual home meds. 7. Dementia Reported per son.? There is no documentation of dementia and prior records. -stopped Seroquel 8. Depression Continue Zoloft 9. Left arm numbness Wallback to be secondary to Lovenox injection during this admission.? Brain MRI revealed no acute changes.? Left arm numbness has resolved. Code status Previously documented DNR DNI Prophylaxis Continue Lovenox Disposition Pending guardianship per case management, appreciate assistance with placement. Surrogate decision maker: SonSudhakar VTE Deep Vein Thrombosis/Pulmonary Embolism Present on Admission: No
[2023-01-09 19:00] VITALS: O2SAT 99
[2023-01-09 20:00] VITALS: BP 129/64; PULSE 55; RESP 18; TEMP 36.3; O2SAT 99
[2023-01-09] MEDS: SERTRALINE 50 MG TABLET PO (20:30)
[2023-01-09] MEDS: CLOPIDOGREL 75 MG TABLET PO (20:30)
[2023-01-10] MEDS: diphenhydrAMINE 25 MG TABLET PO ×2 (03:45→21:28)
[2023-01-10] MEDS: ACETAMINOPHEN 325 MG TABLET 650 MG PO ×3 (03:45→21:30)
[2023-01-10] MEDS: PANTOPRAZOLE DR 40 MG TABLET PO (05:41)
[2023-01-10] MEDS: HYDROCODONE/ACET 10/325 TABLET 1 TAB PO ×4 (05:42→21:31)
[2023-01-10] MEDS: LEVOTHYROXINE 50 MCG TABLET 150 MCG PO (05:43)
--- NOTE | 2023-01-10 07:44 | PM.PN.1 ---
Subjective Subjective Interval history: 72-year-old gentleman with hypertension, hyperlipidemia, dementia, previous stroke with left-sided weakness, coronary artery disease status post stents, depression, and general debility who was admitted with an unsafe home environment. He remains hospitalized as care management is working towards a safe disposition for him. Patient reports he is feeling well overall. He reports he has been eating well and he believes he is gained some weight since being in the hospital. He denies any trouble with urinating. He is taking MiraLax and moving his bowels regularly. He did have a shower last night which he was happy to have, but states he unfortunately was awake all night Exam Vital Signs (past 8 hours): Oxygen Delivery Method Room Air Oxygen Flow Rate 0 Narrative Exam Narrative: GEN: Alert and oriented x 3, NAD HEENT:NC, Face symmetric CHEST: Respiratory excursions symmetric, CTAB CV: RRR, no M/R/G ABD: Soft, NT/ND, BT present in all 4 quadrants, no organomegaly or masses EXTR: warm, well perfused, no C/C/E SKIN: warm and dry, no rash NEURO: Alert and oriented x 3 Objective Labs 12/18/22 05:35 12/25/22 06:00 [facility] Medical History Cerebrovascular accident Chronic GERD Dementia Hyperlipidemia Hypertension Social History household members: children Smoking Status: Former smoker alcohol intake: current Assessment & Plan Assessment & Plan narrative: 1. Unstable discharge for a debilitated elderly male with multiple medical comorbidities Patient remains here under observation status while an appropriate disposition is identified.? He has no acute, decompensated medical issue, but is chronically weak and debilitated. 2. History of stroke with left-sided weakness He declined PT and OT during this admission. 3. Progressive transaminitis LFTs were improving on last labs drawn on December 25 4. Coronary artery disease Previous stenting.? No acute symptoms.? Continue home meds 5. Hypertension Remains normotensive.? Continue usual home meds. 6. Dementia Reported per son.? There is no documentation of dementia and prior records.? Patient is alert and oriented, He does appear to have capacity at this time. 7. Depression Continue Zoloft Code status DNR DNI Prophylaxis Continue Lovenox Disposition Unknown Quality VTE Deep Vein Thrombosis/Pulmonary Embolism Present on Admission: No
[2023-01-10 07:47] VITALS: BP 125/73; PULSE 60; RESP 17; TEMP 36.6; O2SAT 98
[2023-01-10] MEDS: DOCUSATE 100 MG CAPSULE PO ×2 (08:38→21:30)
[2023-01-10] MEDS: polyethylene glycoL 3350 17 GM POWD.PACK PO (08:38)
[2023-01-10] MEDS: FERROUS SULFATE 325 MG TABLET PO ×2 (08:38→17:28)
[2023-01-10] MEDS: METOPROLOL IR 25 MG TABLET 12.5 MG PO ×2 (08:38→21:28)
[2023-01-10] MEDS: GABAPENTIN 100 MG CAPSULE PO ×2 (08:39→21:27)
[2023-01-10] MEDS: lisinopriL 10 MG TABLET PO (08:40)
[2023-01-10 08:45] VITALS: O2SAT 98
--- NOTE | 2023-01-10 10:19 | SLP.IPNOTE ---
At rounds, CHEMIST INTERNSHIP was requested to complete a cognitive assessment with this pt. CHEMIST INTERNSHIP agreeable to complete and orders were put in. CHEMIST INTERNSHIP entered the pt's room at 10:10 and pt was agreeable to this CHEMIST INTERNSHIP entering and participating in assessment. After three questions, the pt appeared to be agitated as noted by furrowed brow and sharp tone of voice. Pt reported, I am getting upset, you need to leave. When asked if he could complete a few more questions, the pt reinterred that he was upset and wanted this CHEMIST INTERNSHIP to leave. CHEMIST INTERNSHIP then exited the room at 10:15. Uncompleted assessment will be in the pt's chart to hopefully continue and complete at a later date.
--- NOTE | 2023-01-10 14:20 | CM.DPNOTE ---
Placement Efforts [facility], a [facility] law firm, now working on the petition for guardianship on patient's behalf which is expected to be filed with [facility] [address] next week Placed order for OT and SITE DIRECTOR in order to have an updated cognitive assessment. No OT until Thursday although SITE DIRECTOR available today to complete According to JONO Jackson, cog assessment was started but patient lacked the tolerance for the questions. Likely OT will attempt again Thursday JW
[2023-01-10 19:00] VITALS: O2SAT 94
[2023-01-10 20:00] VITALS: BP 106/51; PULSE 57; RESP 20; TEMP 36.7; O2SAT 95
[2023-01-10] MEDS: CLOPIDOGREL 75 MG TABLET PO (21:30)
[2023-01-10] MEDS: SERTRALINE 50 MG TABLET PO (21:31)
[2023-01-11] MEDS: ACETAMINOPHEN 325 MG TABLET 650 MG PO ×3 (03:38→20:21)
[2023-01-11] MEDS: diphenhydrAMINE 25 MG TABLET PO (03:39)
[2023-01-11] MEDS: HYDROCODONE/ACET 10/325 TABLET 1 TAB PO ×3 (03:39→23:57)
[2023-01-11] MEDS: LEVOTHYROXINE 50 MCG TABLET 150 MCG PO (05:26)
[2023-01-11] MEDS: PANTOPRAZOLE DR 40 MG TABLET PO (05:26)
[2023-01-11 07:00] VITALS: BP 120/62; PULSE 54; RESP 16; TEMP 36.4; O2SAT 95; O2SAT 99
--- NOTE | 2023-01-11 08:31 | P.PN_ITS ---
Subjective Subjective Interval history: 72-year-old gentleman with hypertension, hyperlipidemia, dementia, previous stroke with left-sided weakness, coronary artery disease status post stents, depression, and general debility who was admitted with an unsafe home environment.? He remains hospitalized as care management is working towards a safe disposition for him. Patient reports that he slept better last night. He notes that about 3:00 a.m. this morning he became very itchy on his arms and ended up using ice packs to help calm it down. It has resolved this morning. No new complaints. Exam Vital Signs (past 8 hours): Oxygen Delivery Method Room Air Oxygen Flow Rate 0 Narrative Exam Narrative: GEN: Alert and oriented x 3, NAD HEENT:NC, Face symmetric CHEST: Respiratory excursions symmetric, CTAB CV: RRR, no M/R/G ABD: Soft, NT/ND, BT present in all 4 quadrants, no organomegaly or masses EXTR: warm, well perfused, no C/C/E SKIN: warm and dry, no rash NEURO: Alert and oriented x 3 Objective Labs 12/18/22 05:35 12/25/22 06:00 [facility] Medical History Cerebrovascular accident Chronic GERD Dementia Hyperlipidemia Hypertension Social History household members: children Smoking Status: Former smoker alcohol intake: current Assessment & Plan Assessment & Plan narrative: 1. Unstable discharge for a debilitated elderly male with multiple medical comorbidities Patient remains here under observation status while an appropriate disposition is identified.? He has no acute, decompensated medical issue, but is chronically weak and debilitated. Care management is working diligently on appropriate and safe discharge. 2. History of stroke with left-sided weakness He declined PT and OT during this admission. 3. Progressive transaminitis LFTs were improving on last labs drawn on December 25 . Will recheck labs in the morning. 4. Coronary artery disease Previous stenting.? No acute symptoms.? Continue home meds 5. Hypertension Remains normotensive.? Continue usual home meds. 6. Dementia Reported per son.? There is no documentation of dementia and prior records.? Patient is alert and oriented, He does appear to have capacity at this time. OT to do a slums assessment. 7. Depression Continue Zoloft 8. Hypothyroidism Continue levothyroxine. Uncertain when his last TSH was performed. Will order A TSH for the morning to ensure he is appropriately replaced. Code status DNR DNI Prophylaxis Continue Lovenox Disposition Unknown Quality VTE Deep Vein Thrombosis/Pulmonary Embolism Present on Admission: No
[2023-01-11] MEDS: DOCUSATE 100 MG CAPSULE PO ×2 (10:05→20:19)
[2023-01-11] MEDS: GABAPENTIN 100 MG CAPSULE PO ×2 (10:05→20:19)
[2023-01-11] MEDS: FERROUS SULFATE 325 MG TABLET PO ×2 (10:05→17:57)
[2023-01-11] MEDS: METOPROLOL IR 25 MG TABLET 12.5 MG PO ×2 (10:05→20:19)
[2023-01-11] MEDS: lisinopriL 10 MG TABLET PO (10:07)
--- NOTE | 2023-01-11 12:22 | SLP.IPNOTE ---
GREEN CHAIN OPERATOR re-entered the room in an attempt to complete cognitive testing. Pt became agitated and reported to this GREEN CHAIN OPERATOR, I thought I told you to never come back here?. Pt refused to participate in testing and requested this GREEN CHAIN OPERATOR to leave the room. Nurse attempted to assist as well, but the pt still refused. Incomplete test was returned back to the pt folder.
[2023-01-11 19:00] VITALS: O2SAT 96
[2023-01-11 20:00] VITALS: BP 122/57; PULSE 59; RESP 17; TEMP 36.8; O2SAT 96
[2023-01-11] MEDS: CLOPIDOGREL 75 MG TABLET PO (20:19)
[2023-01-11] MEDS: SERTRALINE 50 MG TABLET PO (20:19)
[2023-01-11 20:21] VITALS: TEMP 36.8
[2023-01-12] MEDS: LEVOTHYROXINE 50 MCG TABLET 150 MCG PO (04:56)
[2023-01-12] MEDS: diphenhydrAMINE 25 MG TABLET PO ×2 (04:56→14:10)
[2023-01-12] MEDS: HYDROCODONE/ACET 10/325 TABLET 1 TAB PO ×4 (04:59→17:49)
[2023-01-12] MEDS: PANTOPRAZOLE DR 40 MG TABLET PO (05:00)
[2023-01-12 05:20] LABS: Add Manual Diff / Slide Review NO; Basophils Absolute Auto 100 /uL (0-100); Basophils Percent Auto 1.2 % (0-2); Eosinophils Absolute Auto 1400 /uL (0-450); Eosinophils Percent Auto 18.5 % (2-4); Hematocrit 28.1 % (41-53); Hemoglobin 9.3 g/dL (13.5-17.5); Lymphocytes Absolute Auto 1200 /uL (1100-4500); Lymphocytes Percent Auto 16.7 % (25-40); Mean Corpuscular HGB Conc 33.1 % (30-36); Mean Corpuscular Hemoglobin 28.9 PG (26-34); Mean Corpuscular Volume 87.5 fL (80-100); Monocytes Absolute Auto 900 /uL (0-900); Monocytes Percent Auto 12.2 % (3-14); Neutrophils Absolute Auto 3800 /uL (1500-7000); Neutrophils Percent Auto 51.4 % (50-75); Platelet Count 257 X10^3/uL (150-400); Red Blood Cell Count 3.21 X10^6/uL (4.5-5.9); Red Cell Distribution Width 19.4 % (11.6-14.8); White Blood Cell Count 7.5 X10^3/uL (4.5-11.0)
[2023-01-12 05:28] LABS: Alanine Aminotransferase 67 IU/L (<50); Albumin 3.4 g/dL (3.5-5.0); Alkaline Phosphatase 435 U/L (38-126); Aspartate Aminotransferase 66 IU/L (17-59); BUN Creatinine Ratio 34.9 (6-22); Bilirubin Total 0.2 mg/dL (0.2-1.3); Blood Urea Nitrogen 37 mg/dL (9-20); Calcium 9.4 mg/dL (8.4-10.2); Carbon Dioxide 24 mmol/L (22-32); Chloride 109 mmol/L (98-107); Estimated Glomerular Filt Rate > 60 mL/min (>60); Globulin 3.5 g/dL (1.7-4.1); Glucose 102 mg/dL (80-110); HEMOLYSIS < 15 (0-50); Potassium 4.9 mmol/L (3.4-5.1); Sodium 136 mmol/L (137-145); Total Protein 6.9 g/dL (6.3-8.2)
[2023-01-12 06:00] LABS: Thyroid Stimulating Hormone 0.128 uIU/mL (0.47-4.68)
[2023-01-12 07:00] VITALS: O2SAT 96
[2023-01-12] MEDS: polyethylene glycoL 3350 17 GM POWD.PACK PO (08:52)
[2023-01-12] MEDS: FERROUS SULFATE 325 MG TABLET PO ×2 (08:52→17:49)
[2023-01-12 08:53] VITALS: BP 127/64; PULSE 78
[2023-01-12] MEDS: lisinopriL 10 MG TABLET PO (08:53)
[2023-01-12] MEDS: DOCUSATE 100 MG CAPSULE PO ×2 (08:53→21:34)
[2023-01-12] MEDS: GABAPENTIN 100 MG CAPSULE PO ×2 (08:53→21:33)
[2023-01-12] MEDS: METOPROLOL IR 25 MG TABLET 12.5 MG PO (08:53)
--- NOTE | 2023-01-12 10:34 | OT.IPNOTE ---
Discussed case with CM. Per Christy (BRYSON), please bring all questions directly to her regarding this patient. Pt initially agreeable to SLUMS but then requests that we do it tomorrow as he just woke up. Requested that nursing hold pain medications in the AM till after the assessment so pt would be alert. Information passed on to to the OT scheduled for 01/13.
--- NOTE | 2023-01-12 10:37 | PM.PN.1 ---
Subjective Subjective Interval history: 72-year-old gentleman with hypertension, hyperlipidemia, dementia, previous stroke with left-sided weakness, coronary artery disease status post stents, depression, and general debility who was admitted with an unsafe home environment.? He remains hospitalized as care management is working towards a safe disposition for him. No new complaints. Exam Vital Signs (past 8 hours): - 01/12/23 08:53 01/12/23 07:00 Pulse Rate 78 Blood Pressure 127/64 Pulse Oximetry 96 Oxygen Delivery Method Room Air Oxygen Flow Rate 0 Oxygen Delivery Method Room Air Oxygen Flow Rate 0 Narrative Exam Narrative: GEN: Alert in no acute distress HEENT:NC, Face symmetric CHEST: Respiratory excursions symmetric SKIN: warm and dry, no rash NEURO: Alert and oriented x 3 Objective Labs 01/12/23 04:54 01/12/23 04:54 Labs: Laboratory Results - last 24 hr 01/12/23 01/12/23 01/12/23 04:54 04:54 04:54 WBC 7.5 RBC 3.21 L Hgb 9.3 L Hct 28.1 L MCV 87.5 MCH 28.9 MCHC 33.1 RDW 19.4 H Plt Count 257 Neut % (Auto) 51.4 Lymph % (Auto) 16.7 L Wolfe % (Auto) 12.2 Eos % (Auto) 18.5 H Baso % (Auto) 1.2 Neut # (Auto) 3800 Lymph # (Auto) 1200 Wolfe # (Auto) 900 Eos # (Auto) 1400 H Baso # (Auto) 100 Sodium 136 L Potassium 4.9 Chloride 109 H Carbon Dioxide 24 BUN 37 H Creatinine 1.06 Estimated GFR > 60 BUN/Creatinine Ratio 34.9 H Glucose 102 Calcium 9.4 Total Bilirubin 0.2 AST 66 H ALT 67 H Alkaline Phosphatase 435 H Total Protein 6.9 Albumin 3.4 L Globulin 3.5 Albumin/Globulin Ratio 1.0 TSH 0.128 L PFSH Medical History Cerebrovascular accident Chronic GERD Dementia Hyperlipidemia Hypertension Social History household members: children Smoking Status: Former smoker alcohol intake: current Assessment & Plan Assessment & Plan narrative: 1. Unstable discharge for a debilitated elderly male with multiple medical comorbidities Patient remains here under observation status while an appropriate disposition is identified.? He has no acute, decompensated medical issue, but is chronically weak and debilitated. Care management is working diligently on appropriate and safe discharge. 2. History of stroke with left-sided weakness He declined PT and OT during this admission. 3. Progressive transaminitis LFTs were improving on last labs drawn on December 25 . Will recheck labs in the morning. 4. Coronary artery disease Previous stenting.? No acute symptoms.? Continue home meds 5. Hypertension Remains normotensive.? Continue usual home meds. 6. Dementia Reported per son.? There is no documentation of dementia and prior records.? Patient is alert and oriented, He does appear to have capacity at this time. OT to do a slums assessment. 7. Depression Continue Zoloft 8. Hypothyroidism Continue levothyroxine. Uncertain when his last TSH was performed. Will order A TSH for the morning to ensure he is appropriately replaced. Code status DNR DNI Prophylaxis Continue Lovenox Disposition Unknown Quality VTE Deep Vein Thrombosis/Pulmonary Embolism Present on Admission: No
[2023-01-12 11:00] VITALS: BP 117/51; PULSE 59; RESP 18; TEMP 36.6; O2SAT 98
--- NOTE | 2023-01-12 11:32 | PC.NURSE ---
Social work came by this morning and spoke to his RN at approximately 10:20 about the pt. Social work is requesting that the pt's hydrocodone beheld in the morning so that the pt can be questioned and the pt needs to remain as alert and oriented as possible in attempt to get a clear picture of the pt's mental status and orientation level at baseline. Pt has been able to inform this RN of his location and which hospital he's in and that it's almost the 13 of January and there will be fireworks. Pt is very hard of hearing.
[2023-01-12] MEDS: ACETAMINOPHEN 325 MG TABLET 650 MG PO ×2 (14:10→21:33)
[2023-01-12 21:00] VITALS: BP 109/47; PULSE 72; RESP 21; TEMP 36.3; O2SAT 96
[2023-01-12 21:30] VITALS: BP 100/52; PULSE 50
[2023-01-12] MEDS: CLOPIDOGREL 75 MG TABLET PO (21:33)
[2023-01-12] MEDS: SERTRALINE 50 MG TABLET 100 MG PO (21:34)
[2023-01-13] MEDS: PANTOPRAZOLE DR 40 MG TABLET PO (06:07)
[2023-01-13] MEDS: LEVOTHYROXINE 125 MCG TABLET PO (06:07)
[2023-01-13 07:00] VITALS: O2SAT 96
[2023-01-13 08:20] VITALS: BP 110/53; PULSE 62; RESP 16; TEMP 36.3; O2SAT 96
[2023-01-13] MEDS: FERROUS SULFATE 325 MG TABLET PO (08:20)
[2023-01-13] MEDS: polyethylene glycoL 3350 17 GM POWD.PACK PO (08:20)
[2023-01-13] MEDS: GABAPENTIN 100 MG CAPSULE PO ×2 (08:20→19:54)
[2023-01-13] MEDS: DOCUSATE 100 MG CAPSULE PO ×2 (08:20→19:53)
[2023-01-13 08:26] VITALS: BP 110/53; PULSE 62
[2023-01-13] MEDS: lisinopriL 10 MG TABLET PO (08:26)
--- NOTE | 2023-01-13 09:35 | OT.IP.EVAL ---
Past Medical History (Last Reviewed 12/13/22 @ 07:19 by Abdon Conroy DO) Cerebrovascular accident Chronic GERD Dementia Hyperlipidemia Hypertension Occupational Therapy Inpatient Evaluation/Re-Eval M3 OT- IP Subjective and Pain Start: 01/13/23 12:13 Freq: Status: Active Protocol: Document 01/13/23 09:20 [facility] (Rec: 01/13/23 12:34 [facility] [id number]) OT- Subjective Occupational Therapy Visit Type Type Initial Evaluation Visit Start Time 09:20 Visit Stop Time 09:35 Total Visit Minutes 15 Occupational Therapy Visit Comments Patient Comments Pt agreed to do the SLUMS. OT able to do SLUMS with pt today . M6 OT- IP Functional Cognition Start: 01/13/23 12:13 Freq: Status: Active Protocol: Document 01/13/23 09:20 [facility] (Rec: 01/13/23 12:34 [facility] [id number]) Cognitive Factors Limiting Selfcare Function Cognitive Ability Level of Alertness Alert Patient Orientation Name,Year Attention Span Ability Capable of Focused Attention, Capable of Sustained Attention Ability to Follow Commands Able to Follow One Step Commands Cognitive Tests SLUMS Pt scored 21/30 , pt did not know the day of the week, able to recall 4/5 objects after time passed, not able to state 4 digit number backwards, not able to draw the hands of the clock correctly and able to answer 3/4 questions after paragraph read. Pt's score implies mild cognitive deficits. Cognitive Comments Cognitive Assessment Comments Pt able to follow commands for SLUMS and scored 21/30. M9 OT- IP Assessment and Plan Start: 01/13/23 12:13 Freq: Status: Active Protocol: Document 01/13/23 09:20 [facility] (Rec: 01/13/23 12:34 [facility] [id number]) OT Summary Assessment and Plan Potential Analytic Complexity at Evaluation Low Summary Assessment Summary OT orders for SLUMS. Pt scored 21/30 on the SLUMS which implies mild cognitive deficits, able to notify case management and hospitalist of his score. Frequency of Treatment Frequency Of Treatment Discharge
--- NOTE | 2023-01-13 10:02 | PC.NURSE ---
Alert and oriented, making needs know appropriately, taking b'fast well. Watching TV. Erlinda OT in to do eval.
--- NOTE | 2023-01-13 10:26 | PM.PN.1 ---
Subjective Subjective Interval history: 72-year-old gentleman with hypertension, hyperlipidemia, dementia, previous stroke with left-sided weakness, coronary artery disease status post stents, depression, and general debility who was admitted with an unsafe home environment.? He remains hospitalized as care management is working towards a safe disposition for him. No new complaints. Exam Vital Signs (past 8 hours): - 01/13/23 08:26 01/13/23 07:00 01/13/23 08:20 Temperature 97.3 F L Pulse Rate 62 62 Respiratory Rate 16 Blood Pressure 110/53 L 110/53 L Pulse Oximetry 96 96 Oxygen Delivery Method Room Air Oxygen Delivery Method Room Air Oxygen Flow Rate 0 Narrative Exam Narrative: GEN: Alert in no acute distress HEENT:NC, Face symmetric CHEST: Respiratory excursions symmetric SKIN: warm and dry, no rash NEURO: Alert and oriented x 3 Objective Labs 01/12/23 04:54 01/12/23 04:54 PFSH Medical History Cerebrovascular accident Chronic GERD Dementia Hyperlipidemia Hypertension Social History household members: children Smoking Status: Former smoker alcohol intake: current Assessment & Plan Assessment & Plan narrative: 1. Unstable discharge for a debilitated elderly male with multiple medical comorbidities Patient remains here under observation status while an appropriate disposition is identified.? He has no acute, decompensated medical issue, but is chronically weak and debilitated. Care management is working diligently on appropriate and safe discharge. 2. History of stroke with left-sided weakness He declined PT and OT during this admission. 3. Progressive transaminitis LFTs were improving on last labs drawn on December 25 . Will recheck labs in the morning. 4. Coronary artery disease Previous stenting.? No acute symptoms.? Continue home meds 5. Hypertension Remains normotensive.? Continue usual home meds. 6. Dementia Reported per son.? There is no documentation of dementia and prior records.? Patient is alert and oriented, He does appear to have capacity at this time. - SLUMS on 01/13. 7. Depression Continue Zoloft 8. Hypothyroidism Continue levothyroxine. Uncertain when his last TSH was performed. Will order A TSH for the morning to ensure he is appropriately replaced. Code status DNR DNI Prophylaxis Continue Lovenox Disposition Unknown Quality VTE Deep Vein Thrombosis/Pulmonary Embolism Present on Admission: No
[2023-01-13 19:00] VITALS: O2SAT 97
[2023-01-13] MEDS: ACETAMINOPHEN 325 MG TABLET 650 MG PO (19:54)
[2023-01-13] MEDS: HYDROCODONE/ACET 10/325 TABLET 1 TAB PO (19:54)
[2023-01-13] MEDS: METOPROLOL IR 25 MG TABLET 12.5 MG PO (19:54)
[2023-01-13] MEDS: SERTRALINE 50 MG TABLET 100 MG PO (19:55)
[2023-01-13] MEDS: diphenhydrAMINE 25 MG TABLET PO (19:55)
[2023-01-13 20:00] VITALS: BP 125/63; PULSE 76; RESP 17; TEMP 37.1; O2SAT 96
[2023-01-14] MEDS: diphenhydrAMINE 25 MG TABLET PO ×3 (03:34→18:43)
[2023-01-14] MEDS: HYDROCODONE/ACET 10/325 TABLET 1 TAB PO ×3 (03:34→18:43)
[2023-01-14] MEDS: LEVOTHYROXINE 125 MCG TABLET PO (05:18)
[2023-01-14] MEDS: PANTOPRAZOLE DR 40 MG TABLET PO (05:18)
[2023-01-14 07:00] VITALS: BP 114/60; PULSE 76; RESP 16; TEMP 36.7; O2SAT 93
[2023-01-14 07:18] VITALS: O2SAT 98
[2023-01-14 08:08] VITALS: BP 125/63; PULSE 76
[2023-01-14] MEDS: METOPROLOL IR 25 MG TABLET 12.5 MG PO ×2 (08:08→21:34)
[2023-01-14] MEDS: lisinopriL 10 MG TABLET PO (08:08)
[2023-01-14] MEDS: DOCUSATE 100 MG CAPSULE PO ×2 (08:08→21:34)
[2023-01-14] MEDS: polyethylene glycoL 3350 17 GM POWD.PACK PO (08:09)
[2023-01-14] MEDS: GABAPENTIN 100 MG CAPSULE PO ×2 (08:09→21:34)
[2023-01-14] MEDS: ACETAMINOPHEN 325 MG TABLET 650 MG PO (08:09)
--- NOTE | 2023-01-14 13:55 | SLP.IPNOTE ---
From [facility] re: 01/13/23 - 219 - I have attempted to give the SLUMS twice as the correctional casework specialist asked me to try on Thursday, but he refused both times and told me he ?doesn?t want me to come in his room ever again? so I don?t suspect he?ll cooperate with me at least to complete it. His moods change very quickly and he becomes agitated very easily.?
--- NOTE | 2023-01-14 14:55 | SLP.IPNOTE ---
Spoke with Dr Fox. Pt completed SLUMS with OT with score of 21/30. ST no longer needed. MD agreed. Will d/c
--- NOTE | 2023-01-14 15:32 | PM.PN.1 ---
Subjective Subjective Interval history: 72-year-old gentleman with hypertension, hyperlipidemia, dementia, previous stroke with left-sided weakness, coronary artery disease status post stents, depression, and general debility who was admitted with an unsafe home environment.? He remains hospitalized as care management is working towards a safe disposition for him. No new complaints. Exam Vital Signs (past 8 hours): - 01/14/23 08:08 Pulse Rate 76 Blood Pressure 125/63 Oxygen Delivery Method Room Air Oxygen Flow Rate 0 Narrative Exam Narrative: GEN: Alert in no acute distress HEENT:NC, Face symmetric CHEST: Respiratory excursions symmetric SKIN: warm and dry, no rash NEURO: Alert and oriented x 3 Objective Labs 01/12/23 04:54 01/12/23 04:54 PFSH Medical History Cerebrovascular accident Chronic GERD Dementia Hyperlipidemia Hypertension Social History household members: children Smoking Status: Former smoker alcohol intake: current Assessment & Plan Assessment & Plan narrative: 1. Unstable discharge for a debilitated elderly male with multiple medical comorbidities Patient remains here under observation status while an appropriate disposition is identified.? He has no acute, decompensated medical issue, but is chronically weak and debilitated. Care management is working diligently on appropriate and safe discharge. 2. History of stroke with left-sided weakness He declined PT and OT during this admission. 3. Progressive transaminitis LFTs were improving on last labs drawn on December 25 . Will recheck labs in the morning. 4. Coronary artery disease Previous stenting.? No acute symptoms.? Continue home meds 5. Hypertension Remains normotensive.? Continue usual home meds. 6. Dementia Reported per son.? There is no documentation of dementia and prior records.? Patient is alert and oriented, He does appear to have capacity at this time. - SLUMS on 01/13. 7. Depression Continue Zoloft 8. Hypothyroidism TSH low on admission at 0.128, levothyroxine was lowered from 150 to 125 mcg. Repeat TSH in Mid January if patient still in the hospital. Code status DNR DNI Prophylaxis Continue Lovenox Disposition pending guardianship Quality VTE Deep Vein Thrombosis/Pulmonary Embolism Present on Admission: No
[2023-01-14 19:00] VITALS: O2SAT 95
[2023-01-14 20:00] VITALS: BP 133/67; PULSE 70; RESP 17; TEMP 36.9; O2SAT 95
[2023-01-14] MEDS: SERTRALINE 50 MG TABLET 100 MG PO (21:34)
--- NOTE | 2023-01-15 06:35 | PC.NURSE ---
ASSISTANT LABORATORY DIRECTOR went in pt room around 0600 and noticed a smell in the air. ASSISTANT LABORATORY DIRECTOR found a small bowel movement on the floor and smeared on the side of trash can. Tissues with BM were also scattered on the floor. ASSISTANT LABORATORY DIRECTOR asked pt why there was BM on the floor and pt responded with I dont know this is my sisters house. ASSISTANT LABORATORY DIRECTOR asked again why there was BM on the floor and pt stated it was not him who put it there. Reported to RN and coordinator.
[2023-01-15] MEDS: LEVOTHYROXINE 125 MCG TABLET PO (06:37)
[2023-01-15] MEDS: PANTOPRAZOLE DR 40 MG TABLET PO (06:37)
[2023-01-15 07:00] VITALS: O2SAT 96
[2023-01-15] MEDS: GABAPENTIN 100 MG CAPSULE PO ×2 (07:57→20:36)
[2023-01-15] MEDS: ENOXAPARIN 40 MG/0.4 ML SYRINGE SUBCUT (07:57)
[2023-01-15] MEDS: FERROUS SULFATE 325 MG TABLET PO (07:57)
[2023-01-15] MEDS: lisinopriL 10 MG TABLET PO (07:57)
[2023-01-15 08:00] VITALS: BP 123/65; PULSE 61; RESP 18; TEMP 36.9; O2SAT 97
--- NOTE | 2023-01-15 08:22 | PM.PN.1 ---
Subjective Subjective Interval history: 72-year-old gentleman with hypertension, hyperlipidemia, dementia, previous stroke with left-sided weakness, coronary artery disease status post stents, depression, and general debility who was admitted with an unsafe home environment.? He remains hospitalized as care management is working towards a safe disposition for him. No new complaints. Exam Vital Signs (past 8 hours): - 01/15/23 08:00 Temperature 98.5 F Pulse Rate 61 Respiratory Rate 18 Blood Pressure 123/65 Pulse Oximetry 97 Oxygen Flow Rate 0 Oxygen Delivery Method Room Air Oxygen Flow Rate 0 Narrative Exam Narrative: GEN: Alert in no acute distress HEENT:NC, Face symmetric CHEST: Respiratory excursions symmetric SKIN: warm and dry, no rash NEURO: Alert and oriented x 3 Objective Labs 01/12/23 04:54 01/12/23 04:54 PFSH Medical History Cerebrovascular accident Chronic GERD Dementia Hyperlipidemia Hypertension Social History household members: children Smoking Status: Former smoker alcohol intake: current Assessment & Plan Assessment & Plan narrative: 1. Unstable discharge for a debilitated elderly male with multiple medical comorbidities Patient remains here under observation status while an appropriate disposition is identified.? He has no acute, decompensated medical issue, but is chronically weak and debilitated. Care management is working diligently on appropriate and safe discharge. 2. History of stroke with left-sided weakness He declined PT and OT during this admission. 3. Progressive transaminitis LFTs were improving on last labs drawn on December 25 . Will recheck labs in the morning. 4. Coronary artery disease Previous stenting.? No acute symptoms.? Continue home meds 5. Hypertension Remains normotensive.? Continue usual home meds. 6. Dementia Reported per son.? There is no documentation of dementia and prior records.? Patient is alert and oriented, He does appear to have capacity at this time. - SLUMS on 01/13. 7. Depression Continue Zoloft 8. Hypothyroidism TSH low on admission at 0.128, levothyroxine was lowered from 150 to 125 mcg. Repeat TSH in Mid January if patient still in the hospital. Code status DNR DNI Prophylaxis Continue Lovenox Disposition pending guardianship Quality VTE Deep Vein Thrombosis/Pulmonary Embolism Present on Admission: No
[2023-01-15] MEDS: METOPROLOL IR 25 MG TABLET 12.5 MG PO (08:24)
--- NOTE | 2023-01-15 15:28 | PC.NURSE ---
Pt has been cooprerative and appropriate. Denies discomfort. Sat in chair for couple hours w/o incidence. Condition remains essentially unchanged. Call light w/in reach. bed larm on for pt safety. Continue w/plan of care,
[2023-01-15 19:50] VITALS: BP 139/63; PULSE 59; RESP 17; TEMP 36.6; O2SAT 100
[2023-01-15] MEDS: SERTRALINE 50 MG TABLET 100 MG PO (20:36)
[2023-01-15 23:20] VITALS: BP 137/65; PULSE 66; RESP 17; TEMP 36.2; O2SAT 99
[2023-01-16 05:35] VITALS: BP 104/63; PULSE 58; RESP 17; TEMP 36.3; O2SAT 100
[2023-01-16] MEDS: PANTOPRAZOLE DR 40 MG TABLET PO (06:49)
[2023-01-16] MEDS: LEVOTHYROXINE 125 MCG TABLET PO (06:49)
[2023-01-16 07:00] VITALS: BP 114/59; PULSE 59; RESP 16; O2SAT 99
--- NOTE | 2023-01-16 07:25 | PM.PN.1 ---
Subjective Subjective Interval history: 72-year-old gentleman with hypertension, hyperlipidemia, dementia, previous stroke with left-sided weakness, coronary artery disease status post stents, depression, and general debility who was admitted with an unsafe home environment.? He remains hospitalized as care management is working towards a safe disposition for him. No new complaints. Exam Vital Signs (past 8 hours): - 01/16/23 05:35 Temperature 97.4 F L Pulse Rate 58 L Respiratory Rate 17 Blood Pressure 104/63 Pulse Oximetry 100 Oxygen Flow Rate 0 Oxygen Delivery Method Room Air Oxygen Flow Rate 0 Narrative Exam Narrative: GEN: Alert in no acute distress HEENT:NC, Face symmetric CHEST: Respiratory excursions symmetric SKIN: warm and dry, no rash NEURO: Alert and oriented x 3 Objective Labs 01/12/23 04:54 01/12/23 04:54 PFSH Medical History Cerebrovascular accident Chronic GERD Dementia Hyperlipidemia Hypertension Social History household members: children Smoking Status: Former smoker alcohol intake: current Assessment & Plan Assessment & Plan narrative: 1. Unstable discharge for a debilitated elderly male with multiple medical comorbidities Patient remains here under observation status while an appropriate disposition is identified.? He has no acute, decompensated medical issue, but is chronically weak and debilitated. Care management is working diligently on appropriate and safe discharge. 2. History of stroke with left-sided weakness He declined PT and OT during this admission. 3. Progressive transaminitis LFTs were improving on last labs drawn on December 25 . Will recheck labs in the morning. 4. Coronary artery disease Previous stenting.? No acute symptoms.? Continue home meds 5. Hypertension Remains normotensive.? Continue usual home meds. 6. Dementia Reported per son.? There is no documentation of dementia and prior records.? Patient is alert and oriented, He does appear to have capacity at this time. - SLUMS on 01/13. 7. Depression Continue Zoloft 8. Hypothyroidism TSH low on admission at 0.128, levothyroxine was lowered from 150 to 125 mcg. Repeat TSH in Mid January if patient still in the hospital. Code status DNR DNI Prophylaxis Continue Lovenox Disposition pending guardianship Quality VTE Deep Vein Thrombosis/Pulmonary Embolism Present on Admission: No
[2023-01-16] MEDS: HYDROCODONE/ACET 10/325 TABLET 1 TAB PO ×3 (09:15→20:43)
[2023-01-16] MEDS: FERROUS SULFATE 325 MG TABLET PO ×2 (09:16→17:10)
[2023-01-16] MEDS: GABAPENTIN 100 MG CAPSULE PO ×2 (09:16→20:40)
[2023-01-16] MEDS: lisinopriL 10 MG TABLET PO (09:16)
[2023-01-16] MEDS: diphenhydrAMINE 25 MG TABLET PO ×2 (17:57→22:11)
[2023-01-16 20:05] VITALS: BP 108/54; PULSE 57; RESP 18; TEMP 36.7; O2SAT 97
[2023-01-16] MEDS: SERTRALINE 50 MG TABLET 100 MG PO (20:40)
[2023-01-16 20:51] VITALS: O2SAT 96
[2023-01-17] MEDS: PANTOPRAZOLE DR 40 MG TABLET PO (06:05)
[2023-01-17] MEDS: LEVOTHYROXINE 125 MCG TABLET PO (06:05)
[2023-01-17 07:00] VITALS: O2SAT 97
[2023-01-17 07:45] VITALS: BP 128/66; PULSE 56; RESP 17; TEMP 36.4; O2SAT 97
[2023-01-17] MEDS: DOCUSATE 100 MG CAPSULE PO ×2 (08:38→20:08)
[2023-01-17] MEDS: lisinopriL 10 MG TABLET PO (08:38)
[2023-01-17] MEDS: GABAPENTIN 100 MG CAPSULE PO ×2 (08:38→20:08)
[2023-01-17] MEDS: HYDROCODONE/ACET 10/325 TABLET 1 TAB PO ×3 (08:38→21:56)
[2023-01-17] MEDS: diphenhydrAMINE 25 MG TABLET PO ×2 (13:49→20:05)
--- NOTE | 2023-01-17 15:36 | PM.PN.1 ---
Subjective Subjective Interval history: 72-year-old gentleman with hypertension, hyperlipidemia, dementia, previous stroke with left-sided weakness, coronary artery disease status post stents, depression, and general debility who was admitted with an unsafe home environment.? He remains hospitalized as care management is working towards a safe disposition for him. No new complaints. Carried forward daily. Exam Vital Signs (past 8 hours): - 01/17/23 07:45 Temperature 97.6 F Pulse Rate 56 L Respiratory Rate 17 Blood Pressure 128/66 Pulse Oximetry 97 Oxygen Flow Rate 0 Oxygen Delivery Method Room Air Oxygen Flow Rate 0 Narrative Exam Narrative: GEN: Alert in no acute distress HEENT:NC, Face symmetric CHEST: Respiratory excursions symmetric SKIN: warm and dry, no rash NEURO: Alert and oriented x 3 Objective Labs 01/12/23 04:54 01/12/23 04:54 PFSH Medical History Cerebrovascular accident Chronic GERD Dementia Hyperlipidemia Hypertension Social History household members: children Smoking Status: Former smoker alcohol intake: current Assessment & Plan Assessment & Plan narrative: 1. Unstable discharge for a debilitated elderly male with multiple medical comorbidities Patient remains here under observation status while an appropriate disposition is identified.? He has no acute, decompensated medical issue, but is chronically weak and debilitated. Care management is working diligently on appropriate and safe discharge. 2. History of stroke with left-sided weakness He declined PT and OT during this admission. 3. Progressive transaminitis LFTs were improving on last labs drawn on December 25 . Will recheck labs in the morning. 4. Coronary artery disease Previous stenting.? No acute symptoms.? Continue home meds 5. Hypertension Remains normotensive.? Continue usual home meds. 6. Dementia Reported per son.? There is no documentation of dementia and prior records.? Patient is alert and oriented, He does appear to have capacity at this time. - SLUMS on 01/13. 7. Depression Continue Zoloft 8. Hypothyroidism TSH low on admission at 0.128, levothyroxine was lowered from 150 to 125 mcg. Repeat TSH in Mid January if patient still in the hospital. Code status DNR DNI Prophylaxis Continue Lovenox Disposition pending guardianship Quality VTE Deep Vein Thrombosis/Pulmonary Embolism Present on Admission: No
--- NOTE | 2023-01-17 16:05 | PC.NURSE ---
Day shift: Pt refused Lovenox shot this AM. Explained this drugs use and purpose of preventing blood clots and potentially TIA/stroke. Pt still refused.
[2023-01-17 19:00] VITALS: O2SAT 97
[2023-01-17] MEDS: SERTRALINE 50 MG TABLET 100 MG PO (20:06)
[2023-01-17] MEDS: METOPROLOL IR 25 MG TABLET 12.5 MG PO (20:11)
[2023-01-17 20:15] VITALS: BP 108/67; PULSE 60; RESP 18; TEMP 36.7; O2SAT 99
[2023-01-18] MEDS: diphenhydrAMINE 25 MG TABLET PO ×4 (02:21→21:16)
[2023-01-18] MEDS: HYDROCODONE/ACET 10/325 TABLET 1 TAB PO ×4 (02:22→21:17)
[2023-01-18] MEDS: PANTOPRAZOLE DR 40 MG TABLET PO (06:46)
[2023-01-18] MEDS: LEVOTHYROXINE 125 MCG TABLET PO (06:46)
[2023-01-18 07:00] VITALS: BP 131/67; PULSE 54; RESP 17; TEMP 35.9; O2SAT 100
--- NOTE | 2023-01-18 07:48 | P.PN_ITS ---
Subjective Subjective Date Patient Seen: 01/18/23 Interval history: He is seen today to follow up his chronic medical condition final discharge disposition. He greets me with ?I remember you from the other hospital.? He also has a sense of humor and tells me ?I am waiting for somebody to adopt me. ? The 01/12 hemoglobin was 9.3 with a normal BNP. The AST was 66 and the ALT was 87 and improving. The alkaline phosphatase was 435. The TSH was 0.128. Exam Vital Signs (past 8 hours): Oxygen Delivery Method Room Air Oxygen Flow Rate 0 Narrative Exam Narrative: Alert and oriented to name and people that he remembers from previous interactio ns. Intact sense of humor Heart is regular rate and rhythm without murmur Lungs are clear to auscultation bilaterally Extremities have no ankle edema Objective Labs 01/12/23 04:54 01/12/23 04:54 PFSH Medical History Cerebrovascular accident Chronic GERD Dementia Hyperlipidemia Hypertension Social History household members: children Smoking Status: Former smoker alcohol intake: current Assessment & Plan Assessment & Plan narrative: 1. Unstable discharge for a debilitated elderly male with multiple medical comorbidities Patient remains here under observation status while an appropriate disposition is identified.? He has no acute, decompensated medical issue, but is chronically weak and debilitated.? Care management is working diligently on appropriate? and safe discharge. 2. History of stroke with left-sided weakness He declined PT and OT during this admission. 3. Progressive transaminitis LFTs were improving on last labs drawn on January 12. 4. Coronary artery disease Previous stenting.? No acute symptoms.? Continue home meds 5. Hypertension Remains normotensive.? Continue usual home meds. 6. Dementia Reported per son.? There is no documentation of dementia in prior records.? Patient is alert and oriented, He does appear to have capacity at this time. - SLUMS on 01/13. 7. Depression Continue Zoloft 8. Hypothyroidism TSH low on admission at 0.128, levothyroxine was lowered from 150 to 125 mcg. Repeat TSH in Mid January if patient still in the hospital. Code status DNR DNI Prophylaxis Continue Lovenox Disposition pending guardianship Quality VTE Deep Vein Thrombosis/Pulmonary Embolism Present on Admission: No
[2023-01-18] MEDS: GABAPENTIN 100 MG CAPSULE PO ×2 (08:39→21:16)
[2023-01-18] MEDS: METOPROLOL IR 25 MG TABLET 12.5 MG PO (08:39)
[2023-01-18 19:00] VITALS: O2SAT 97
[2023-01-18 20:00] VITALS: BP 100/46; PULSE 52; RESP 17; TEMP 36.9; O2SAT 97
[2023-01-18] MEDS: SERTRALINE 50 MG TABLET 100 MG PO (21:16)
[2023-01-18] MEDS: ACETAMINOPHEN 325 MG TABLET 650 MG PO (21:17)
[2023-01-19] MEDS: HYDROCODONE/ACET 10/325 TABLET 1 TAB PO ×4 (02:40→21:46)
[2023-01-19] MEDS: diphenhydrAMINE 25 MG TABLET PO ×3 (02:40→21:53)
[2023-01-19] MEDS: LEVOTHYROXINE 125 MCG TABLET PO (06:07)
[2023-01-19] MEDS: PANTOPRAZOLE DR 40 MG TABLET PO (06:07)
[2023-01-19 07:00] VITALS: BP 116/65; PULSE 52; RESP 16; TEMP 35.9; O2SAT 98
[2023-01-19] MEDS: GABAPENTIN 100 MG CAPSULE PO ×2 (07:47→21:52)
--- NOTE | 2023-01-19 12:29 | PM.PN.1 ---
Subjective Subjective Interval history: 72-year-old gentleman with hypertension, hyperlipidemia, dementia, previous stroke with left-sided weakness, coronary artery disease status post stents, depression, and general debility who was admitted with an unsafe home environment.? He remains hospitalized as care management is working towards a safe disposition for him. No new complaints. Carried forward daily. Exam Vital Signs (past 8 hours): - 01/19/23 07:00 01/19/23 07:00 Temperature 96.7 F L Pulse Rate 52 L Respiratory Rate 16 Blood Pressure 116/65 Pulse Oximetry 98 98 Oxygen Delivery Method Room Air Oxygen Delivery Method Room Air Oxygen Flow Rate 0 Narrative Exam Narrative: Alert and oriented to name Heart is regular rate and rhythm without murmur Lungs are clear to auscultation bilaterally Extremities have no ankle edema Objective Labs 01/12/23 04:54 01/12/23 04:54 PFSH Medical History Cerebrovascular accident Chronic GERD Dementia Hyperlipidemia Hypertension Social History household members: children Smoking Status: Former smoker alcohol intake: current Assessment & Plan Assessment & Plan narrative: 1. Unstable discharge for a debilitated elderly male with multiple medical comorbidities Patient remains here under observation status while an appropriate disposition is identified.? He has no acute, decompensated medical issue, but is chronically weak and debilitated.? Care management is working diligently on appropriate? and safe discharge. 2. History of stroke with left-sided weakness He declined PT and OT during this admission. 3. Progressive transaminitis LFTs were improving on last labs drawn on January 12. 4. Coronary artery disease Previous stenting.? No acute symptoms.? Continue home meds 5. Hypertension Remains normotensive.? Continue usual home meds. 6. Dementia Reported per son.? There is no documentation of dementia in prior records.? Patient is alert and oriented, He does appear to have capacity at this time. - SLUMS on 01/13. 7. Depression Continue Zoloft 8. Hypothyroidism TSH low on admission at 0.128, levothyroxine was lowered from 150 to 125 mcg. Repeat TSH in Mid January if patient still in the hospital. Code status DNR DNI Prophylaxis Continue Lovenox Disposition pending guardianship Quality VTE Deep Vein Thrombosis/Pulmonary Embolism Present on Admission: No
--- NOTE | 2023-01-19 13:08 | CM.DPC ---
DCP Guardianship Cont: CLOCK MECHANIC participated in meeting today with CM Director Jalyn, HOOK LOADER Claudette, and Lb/Risk Sinclair along with Erlinda from [facility] retained legal team for an update on the process of Guardianship. Erlinda confirms that they are applying for Guardianship Conservator this week in order to make medical, financial, placement decisions rather than have a separate decision maker for financial and medical. Erlinda states that the court will first appoint a court visitor and they are petitioning to get access to pt's financial information towards moving forward with determining his finances for placement (private pay vs Medicaid depending on pt's assets) prior to having to wait for Professional Guardianship appointment. [facility] will also need a Physician assessment/eval completed and they can auto fill some of the information that was provided by hospital clinicals and Hospitalist can then review and sign if in agreement with the information to present to the court for guardianship request. Erlinda states Professional Guardianship assignment/court approval can take an average of 60 days to even sometimes 120 days but Erlinda hopeful for the timeframe of 60 days. Per RN, pt has been able to tolerate sitting up in chair for significant lengths of time and has been cooperative with care. Plan: SW to continue to follow for at least weekly updates from [facility] legal team and [facility] staff towards continuing to move forward with the Guardianship process and the soonest finances can be accessed towards determining placement as private pay or having to apply for Medicaid LTC placement. CHARITY Bradshaw
[2023-01-19 19:00] VITALS: O2SAT 97
[2023-01-19 20:41] VITALS: BP 121/59; PULSE 57; RESP 18; TEMP 36.9; O2SAT 97
[2023-01-19] MEDS: METOPROLOL IR 25 MG TABLET 12.5 MG PO (21:47)
[2023-01-19] MEDS: DOCUSATE 100 MG CAPSULE PO (21:52)
[2023-01-19] MEDS: SERTRALINE 50 MG TABLET 100 MG PO (21:52)
[2023-01-20] MEDS: HYDROCODONE/ACET 10/325 TABLET 1 TAB PO ×4 (02:18→20:17)
[2023-01-20] MEDS: LEVOTHYROXINE 125 MCG TABLET PO (06:07)
[2023-01-20] MEDS: diphenhydrAMINE 25 MG TABLET PO ×3 (06:07→20:16)
[2023-01-20 07:00] VITALS: BP 118/60; PULSE 52; RESP 18; TEMP 36.7; O2SAT 98
--- NOTE | 2023-01-20 08:26 | PC.NURSE ---
Patient is eating his breakfast. He denies discomfort at this time.
[2023-01-20] MEDS: METOPROLOL IR 25 MG TABLET 12.5 MG PO (10:04)
[2023-01-20] MEDS: GABAPENTIN 100 MG CAPSULE PO ×2 (10:05→20:17)
[2023-01-20] MEDS: DOCUSATE 100 MG CAPSULE PO (10:05)
--- NOTE | 2023-01-20 14:08 | PM.PN.1 ---
Subjective Subjective Interval history: 72-year-old gentleman with hypertension, hyperlipidemia, dementia, previous stroke with left-sided weakness, coronary artery disease status post stents, depression, and general debility who was admitted with an unsafe home environment.? He remains hospitalized as care management is working towards a safe disposition for him. No new complaints. Carried forward daily. Exam Vital Signs (past 8 hours): - 01/20/23 07:00 01/20/23 08:19 Temperature 98.1 F Pulse Rate 52 L Respiratory Rate 18 Blood Pressure 118/60 Pulse Oximetry 98 Oxygen Delivery Method Room Air Oxygen Flow Rate 0 Oxygen Delivery Method Room Air Oxygen Flow Rate 0 Narrative Exam Narrative: Alert and oriented to name Heart is regular rate and rhythm without murmur Lungs are clear to auscultation bilaterally Extremities have no ankle edema Objective Labs 01/12/23 04:54 01/12/23 04:54 PFSH Medical History Cerebrovascular accident Chronic GERD Dementia Hyperlipidemia Hypertension Social History household members: children Smoking Status: Former smoker alcohol intake: current Assessment & Plan Assessment & Plan narrative: 1. Unstable discharge for a debilitated elderly male with multiple medical comorbidities Patient remains here under observation status while an appropriate disposition is identified.? He has no acute, decompensated medical issue, but is chronically weak and debilitated.? Care management is working diligently on appropriate? and safe discharge. 2. History of stroke with left-sided weakness He declined PT and OT during this admission. 3. Progressive transaminitis LFTs were improving on last labs drawn on January 12. 4. Coronary artery disease Previous stenting.? No acute symptoms.? Continue home meds 5. Hypertension Remains normotensive.? Continue usual home meds. 6. Dementia Reported per son.? There is no documentation of dementia in prior records.? Patient is alert and oriented, He does appear to have capacity at this time. - SLUMS on 01/13. 7. Depression Continue Zoloft 8. Hypothyroidism TSH low on admission at 0.128, levothyroxine was lowered from 150 to 125 mcg. Repeat TSH in Mid January if patient still in the hospital. Code status DNR DNI Prophylaxis Continue Lovenox Disposition pending guardianship Quality VTE Deep Vein Thrombosis/Pulmonary Embolism Present on Admission: No
[2023-01-20 19:50] VITALS: BP 116/51; PULSE 54; RESP 18; TEMP 36.9; O2SAT 99
[2023-01-20 20:16] VITALS: O2SAT 100
[2023-01-20] MEDS: SERTRALINE 50 MG TABLET 100 MG PO (20:17)
[2023-01-21] MEDS: HYDROCODONE/ACET 10/325 TABLET 1 TAB PO ×4 (01:45→18:44)
[2023-01-21] MEDS: diphenhydrAMINE 25 MG TABLET PO ×4 (01:46→21:04)
[2023-01-21] MEDS: LEVOTHYROXINE 125 MCG TABLET PO (06:21)
[2023-01-21 07:00] VITALS: BP 115/53; PULSE 52; RESP 17; TEMP 36.6; O2SAT 97
[2023-01-21 09:00] VITALS: O2SAT 98
[2023-01-21] MEDS: GABAPENTIN 100 MG CAPSULE PO ×2 (09:05→21:04)
[2023-01-21] MEDS: METOPROLOL IR 25 MG TABLET 12.5 MG PO ×2 (09:06→21:04)
--- NOTE | 2023-01-21 12:24 | PM.PN.1 ---
Subjective Subjective Interval history: 72-year-old gentleman with hypertension, hyperlipidemia, dementia, previous stroke with left-sided weakness, coronary artery disease status post stents, depression, and general debility who was admitted with an unsafe home environment.? He remains hospitalized as care management is working towards a safe disposition for him. No new complaints. Carried forward daily. Exam Vital Signs (past 8 hours): - 01/21/23 07:00 01/21/23 09:00 01/21/23 09:00 Temperature 97.9 F Pulse Rate 52 L Respiratory Rate 17 Blood Pressure 115/53 L Pulse Oximetry 97 98 Oxygen Delivery Method Room Air Room Air Oxygen Flow Rate 0 Oxygen Delivery Method Room Air Oxygen Flow Rate 0 Narrative Exam Narrative: Alert and oriented to name Heart is regular rate and rhythm without murmur Lungs are clear to auscultation bilaterally Extremities have no ankle edema Objective Labs 01/12/23 04:54 01/12/23 04:54 PFSH Medical History Cerebrovascular accident Chronic GERD Dementia Hyperlipidemia Hypertension Social History household members: children Smoking Status: Former smoker alcohol intake: current Assessment & Plan Assessment & Plan narrative: 1. Unstable discharge for a debilitated elderly male with multiple medical comorbidities Patient remains here under observation status while an appropriate disposition is identified.? He has no acute, decompensated medical issue, but is chronically weak and debilitated.? Care management is working diligently on appropriate? and safe discharge. 2. History of stroke with left-sided weakness He declined PT and OT during this admission. 3. Progressive transaminitis LFTs were improving on last labs drawn on January 12. 4. Coronary artery disease Previous stenting.? No acute symptoms.? Continue home meds 5. Hypertension Remains normotensive.? Continue usual home meds. 6. Dementia Reported per son.? There is no documentation of dementia in prior records.? Patient is alert and oriented, He does appear to have capacity at this time. - SLUMS on 01/13. 7. Depression Continue Zoloft 8. Hypothyroidism TSH low on admission at 0.128, levothyroxine was lowered from 150 to 125 mcg. Repeat TSH in Mid January if patient still in the hospital. Code status DNR DNI Prophylaxis Continue Lovenox Disposition pending guardianship Quality VTE Deep Vein Thrombosis/Pulmonary Embolism Present on Admission: No
--- NOTE | 2023-01-21 12:25 | PC.NURSE ---
Went outside today to the inner court yard for the first time since his admit. Pt got teary. Chaplain Meneses took pt out side and stayed with him. When patient returned he had a big smile on his face and had picked a small piece of lavender which he placed on his table. He shook Gideon's hand and thanked him. Pt much calmer and smiling since then.
--- NOTE | 2023-01-21 14:10 | CM.DPC ---
SW spoke to Muck Operatorpaulette Meneses who confirms that RN Pyrotechnic Mixer Jessica has approved Chaplains to w/c patient down to the hospital inner courtyard for sunshine and fresh air when pt is agreeable. Chaplains Gideon and Corina took pt to the courtyard today and pt seemed appreciative and was brought back to his room. Chaplains plan to check on pt regularly during his [facility]cc stay here at the hospital and have offered pt books, art work, etc.. and so far pt has declined but if pt identifies an item or food he would like, they request you let the Chaplains know so they can try to get the item for the patient. CHARITY Bradshaw
[2023-01-21 20:00] VITALS: BP 121/54; PULSE 61; RESP 17; TEMP 36.7; O2SAT 95
[2023-01-21] MEDS: SERTRALINE 50 MG TABLET 100 MG PO (21:04)
[2023-01-21] MEDS: DOCUSATE 100 MG CAPSULE PO (21:06)
[2023-01-21 23:00] VITALS: O2SAT 95
[2023-01-22] MEDS: HYDROCODONE/ACET 10/325 TABLET 1 TAB PO ×4 (06:07→20:30)
[2023-01-22] MEDS: diphenhydrAMINE 25 MG TABLET PO ×3 (06:07→20:30)
[2023-01-22] MEDS: LEVOTHYROXINE 125 MCG TABLET PO (06:08)
[2023-01-22 07:00] VITALS: BP 112/73; PULSE 55; RESP 17; TEMP 37; O2SAT 98
[2023-01-22] MEDS: METOPROLOL IR 25 MG TABLET 12.5 MG PO (08:52)
[2023-01-22] MEDS: GABAPENTIN 100 MG CAPSULE PO ×2 (08:52→20:30)
--- NOTE | 2023-01-22 10:57 | PM.PN.1 ---
Subjective Subjective Interval history: 72-year-old gentleman with hypertension, hyperlipidemia, dementia, previous stroke with left-sided weakness, coronary artery disease status post stents, depression, and general debility who was admitted with an unsafe home environment.? He remains hospitalized as care management is working towards a safe disposition for him. No new complaints. Carried forward daily. Exam Vital Signs (past 8 hours): - 01/22/23 07:00 01/22/23 07:00 Temperature 98.6 F Pulse Rate 55 L Respiratory Rate 17 Blood Pressure 112/73 Pulse Oximetry 98 98 Oxygen Delivery Method Room Air Oxygen Flow Rate 0 0 Oxygen Delivery Method Room Air Oxygen Flow Rate 0 Narrative Exam Narrative: Alert and oriented to name Heart is regular rate and rhythm without murmur Lungs are clear to auscultation bilaterally Extremities have no ankle edema Objective Labs 01/12/23 04:54 01/12/23 04:54 PFSH Medical History Cerebrovascular accident Chronic GERD Dementia Hyperlipidemia Hypertension Social History household members: children Smoking Status: Former smoker alcohol intake: current Assessment & Plan Assessment & Plan narrative: 1. Unstable discharge for a debilitated elderly male with multiple medical comorbidities Patient remains here under observation status while an appropriate disposition is identified.? He has no acute, decompensated medical issue, but is chronically weak and debilitated.? Care management is working diligently on appropriate? and safe discharge. 2. History of stroke with left-sided weakness He declined PT and OT during this admission. 3. Progressive transaminitis LFTs were improving on last labs drawn on January 12. 4. Coronary artery disease Previous stenting.? No acute symptoms.? Continue home meds 5. Hypertension Remains normotensive.? Continue usual home meds. 6. Dementia Reported per son.? There is no documentation of dementia in prior records.? Patient is alert and oriented, He does appear to have capacity at this time. - SLUMS on 01/13. 7. Depression Continue Zoloft 8. Hypothyroidism TSH low on admission at 0.128, levothyroxine was lowered from 150 to 125 mcg. Repeat TSH in Mid January if patient still in the hospital. Code status DNR DNI Prophylaxis Continue Lovenox Disposition pending guardianship Quality VTE Deep Vein Thrombosis/Pulmonary Embolism Present on Admission: No
[2023-01-22 19:00] VITALS: O2SAT 98
[2023-01-22 20:00] VITALS: BP 121/61; PULSE 58; RESP 17; TEMP 36.6; O2SAT 98
[2023-01-22] MEDS: SERTRALINE 50 MG TABLET 100 MG PO (20:30)
[2023-01-23] MEDS: HYDROCODONE/ACET 10/325 TABLET 1 TAB PO ×4 (03:42→22:16)
[2023-01-23] MEDS: diphenhydrAMINE 25 MG TABLET PO ×2 (03:42→17:54)
[2023-01-23] MEDS: LEVOTHYROXINE 125 MCG TABLET PO (06:15)
[2023-01-23 07:00] VITALS: BP 130/81; PULSE 57; RESP 17; TEMP 36.7; O2SAT 98
[2023-01-23] MEDS: METOPROLOL IR 25 MG TABLET 12.5 MG PO ×2 (08:53→21:04)
[2023-01-23] MEDS: GABAPENTIN 100 MG CAPSULE PO ×2 (08:53→21:07)
--- NOTE | 2023-01-23 09:27 | CM.DPNOTE ---
DCP Note Efforts to secure guardianship continue. Patient served with court ppk this morning by Hövding This PARKING METER COLLECTOR met w/patient before and after this visit and acted as a witness Explained to patient that efforts to secure an advocate and guardian for patient continue. Further explained that in order to secure Medicaid, the state funding needed to pay for intermediate card tender care, and to secure a facility where patient can live and be cared for, a guardian needs to be assigned Patient states understanding. Patient then said before he makes a decision about where to live he would like his son present Discussed two important points: -Medicaid funded beds in the state are limited and so placement will be dependent on what is available. If there is more than one facility available, patient will be presented with choices -Son Shane has been difficult to get a hold of and may not be available for ongoing conversation about placement Patient agrees son is hard to get a hold of and I'm his Dad and even I can't get a hold of him CHARITY Mcgill
--- NOTE | 2023-01-23 13:54 | PM.PN.1 ---
Subjective Subjective Interval history: 72-year-old gentleman with hypertension, hyperlipidemia, dementia, previous stroke with left-sided weakness, coronary artery disease status post stents, depression, and general debility who was admitted with an unsafe home environment.? He remains hospitalized as care management is working towards a safe disposition for him. No new complaints. Carried forward daily. Exam Vital Signs (past 8 hours): - 01/23/23 07:00 01/23/23 07:00 Temperature 98.0 F Pulse Rate 57 L Respiratory Rate 17 Blood Pressure 130/81 Pulse Oximetry 98 98 Oxygen Delivery Method Room Air Oxygen Flow Rate 0 0 Oxygen Delivery Method Room Air Oxygen Flow Rate 0 Narrative Exam Narrative: Alert and oriented to name Heart is regular rate and rhythm without murmur Lungs are clear to auscultation bilaterally Extremities have no ankle edema Objective Labs 01/12/23 04:54 01/12/23 04:54 PFSH Medical History Cerebrovascular accident Chronic GERD Dementia Hyperlipidemia Hypertension Social History household members: children Smoking Status: Former smoker alcohol intake: current Assessment & Plan Assessment & Plan narrative: 1. Unstable discharge for a debilitated elderly male with multiple medical comorbidities Patient remains here under observation status while an appropriate disposition is identified.? He has no acute, decompensated medical issue, but is chronically weak and debilitated.? Care management is working diligently on appropriate? and safe discharge. 2. History of stroke with left-sided weakness He has declined PT and OT during this admission. 3. Progressive transaminitis LFTs were improving on last labs drawn on January 12. 4. Coronary artery disease Previous stenting.? No acute symptoms.? Continue home meds 5. Hypertension Remains normotensive.? Continue usual home meds. 6. Dementia Reported per son.? There is no documentation of dementia in prior records.? Patient is alert and oriented - SLUMS on 01/13. 7. Depression Continue Zoloft 8. Hypothyroidism TSH low on admission at 0.128, levothyroxine was lowered from 150 to 125 mcg. Will repeat TSH tomorrow. Code status DNR DNI Prophylaxis Continue Lovenox Disposition pending placement, with guardianship pending. He was served legal paperwork today. Quality VTE Deep Vein Thrombosis/Pulmonary Embolism Present on Admission: No
[2023-01-23 20:00] VITALS: BP 126/60; PULSE 60; RESP 14; TEMP 36.4; O2SAT 99
[2023-01-23] MEDS: SERTRALINE 50 MG TABLET 100 MG PO (21:04)
[2023-01-24] MEDS: HYDROCODONE/ACET 10/325 TABLET 1 TAB PO ×2 (04:16→20:21)
[2023-01-24] MEDS: LEVOTHYROXINE 125 MCG TABLET PO (06:19)
[2023-01-24 06:55] LABS: TSH w/ Reflex to FT4 0.22 uIU/mL (0.47-4.68)
[2023-01-24 07:00] VITALS: O2SAT 98
[2023-01-24 07:34] LABS: Free T4, Direct Thyroxine 1.06 ng/dL (0.78-2.19)
[2023-01-24 08:00] VITALS: BP 128/56; PULSE 51; RESP 17; TEMP 36.4; O2SAT 98
[2023-01-24] MEDS: ENOXAPARIN 40 MG/0.4 ML SYRINGE SUBCUT (09:13)
[2023-01-24] MEDS: METOPROLOL IR 25 MG TABLET 12.5 MG PO ×2 (09:13→20:11)
[2023-01-24] MEDS: GABAPENTIN 100 MG CAPSULE PO ×2 (09:13→20:31)
--- NOTE | 2023-01-24 09:28 | PM.PN.1 ---
Subjective Subjective Interval history: Patient not having any new complaints today. Nursing not having any new complaints. Exam Vital Signs (past 8 hours): - 01/24/23 07:00 01/24/23 08:00 Temperature 97.5 F L Pulse Rate 51 L Respiratory Rate 17 Blood Pressure 128/56 L Pulse Oximetry 98 98 Oxygen Delivery Method Room Air Oxygen Flow Rate 0 Oxygen Delivery Method Room Air Oxygen Flow Rate 0 Narrative Exam Narrative: Alert and oriented to name Heart is regular rate and rhythm without murmur Lungs are clear to auscultation bilaterally Extremities able to move volitionally, no ankle edema Objective Labs 01/12/23 04:54 01/12/23 04:54 Labs: Laboratory Results - last 24 hr 01/24/23 05:47 TSH 0.22 L Free T4 1.06 PFSH Medical History Cerebrovascular accident Chronic GERD Dementia Hyperlipidemia Hypertension Social History household members: children Smoking Status: Former smoker alcohol intake: current Assessment & Plan Assessment & Plan narrative: 1. Unstable discharge for a debilitated elderly male with multiple medical comorbidities Patient remains here under observation status while an appropriate disposition is identified.? He has no acute, decompensated medical issue, but is chronically weak and debilitated.? Care management is working diligently on appropriate and safe discharge. 2. History of stroke with left-sided weakness He has declined PT and OT during this admission. 3. Progressive transaminitis LFTs were improving on last labs drawn on January 12. 4. Coronary artery disease Previous stenting.? No acute symptoms.? Continue home meds 5. Hypertension Remains normotensive.? Continue usual home meds. 6. Dementia Reported per son.? There is no documentation of dementia in prior records.? Patient is alert and oriented - SLUMS on 01/13. 7. Depression Continue Zoloft 8. Hypothyroidism TSH low on admission at 0.128, levothyroxine was lowered from 150 to 125 mcg. Will repeat TSH tomorrow. Code status DNR DNI Prophylaxis Continue Lovenox Disposition pending placement, with guardianship pending. He has been served legal paperwork. Quality VTE Deep Vein Thrombosis/Pulmonary Embolism Present on Admission: No
--- NOTE | 2023-01-24 16:52 | PC.NURSE ---
Uneventful day, denies discomfort. Condition remains essentially unchanged. Call light w/in reach, bed alarm om for pt safety. Continue w/plan of care.
[2023-01-24 20:00] VITALS: BP 140/66; PULSE 58; RESP 17; TEMP 36.5; O2SAT 98
[2023-01-24] MEDS: DOCUSATE 100 MG CAPSULE PO (20:10)
[2023-01-24] MEDS: SERTRALINE 50 MG TABLET 100 MG PO (20:11)
[2023-01-25] MEDS: LEVOTHYROXINE 125 MCG TABLET PO (05:21)
--- NOTE | 2023-01-25 05:25 | PC.NURSE ---
Pt confused this am, stating I am going to ride my bike to [place] with my friend. Able to reorient pt.
[2023-01-25 07:00] VITALS: O2SAT 97
--- NOTE | 2023-01-25 08:48 | PM.PN.1 ---
Subjective Subjective Interval history: No new complaints by the patient today. Exam Vital Signs (past 8 hours): Oxygen Delivery Method Room Air Oxygen Flow Rate 0 Narrative Exam Narrative: Alert and oriented to name Resting comfortably in bed Heart is regular rate and rhythm without murmur Lungs are clear to auscultation bilaterally Extremities able to move volitionally, no ankle edema Objective Labs 01/12/23 04:54 01/12/23 04:54 PFSH Medical History Cerebrovascular accident Chronic GERD Dementia Hyperlipidemia Hypertension Social History household members: children Smoking Status: Former smoker alcohol intake: current Assessment & Plan Assessment & Plan narrative: 1. Unstable discharge for a debilitated elderly male with multiple medical comorbidities Patient remains here under observation status while an appropriate disposition is identified.? He has no acute, decompensated medical issue, but is chronically weak and debilitated.? Care management is working diligently on appropriate and safe discharge. 2. History of stroke with left-sided weakness He has declined PT and OT during this admission. 3. Progressive transaminitis LFTs were improving on last labs drawn on January 12. 4. Coronary artery disease Previous stenting.? No acute symptoms.? Continue home meds 5. Hypertension Remains normotensive.? Continue usual home meds. 6. Dementia Reported per son.? There is no documentation of dementia in prior records.? Patient is alert and oriented - SLUMS on 01/13. 7. Depression Continue Zoloft 8. Hypothyroidism TSH low on admission at 0.128, levothyroxine was lowered from 150 to 125 mcg. Has measured on 01/24/2023 TSH remains low at 0.22, however free T4 is normal and therefore replacement is appropriate at this time. Code status DNR DNI Prophylaxis Continue Lovenox Disposition pending placement, with guardianship pending. He has been served legal paperwork. Quality VTE Deep Vein Thrombosis/Pulmonary Embolism Present on Admission: No
[2023-01-25] MEDS: GABAPENTIN 100 MG CAPSULE PO ×2 (09:22→20:39)
[2023-01-25] MEDS: DOCUSATE 100 MG CAPSULE PO ×2 (09:22→20:39)
[2023-01-25] MEDS: HYDROCODONE/ACET 10/325 TABLET 1 TAB PO ×4 (09:30→22:38)
[2023-01-25 09:52] VITALS: BP 126/75; PULSE 76; RESP 17; TEMP 36.6; O2SAT 99
[2023-01-25] MEDS: polyethylene glycoL 3350 17 GM POWD.PACK PO (11:20)
[2023-01-25] MEDS: ACETAMINOPHEN 325 MG TABLET 650 MG PO (11:20)
[2023-01-25 19:00] VITALS: BP 126/56; PULSE 55; RESP 16; TEMP 36.5; O2SAT 98
[2023-01-25] MEDS: diphenhydrAMINE 25 MG TABLET PO (20:38)
[2023-01-25] MEDS: METOPROLOL IR 25 MG TABLET 12.5 MG PO (20:39)
[2023-01-25] MEDS: SERTRALINE 50 MG TABLET 100 MG PO (20:39)
[2023-01-26] MEDS: HYDROCODONE/ACET 10/325 TABLET 1 TAB PO ×3 (03:56→21:27)
--- NOTE | 2023-01-26 04:08 | PC.NURSE ---
Addendum entered by Marychuy Keen R.N. 01/26/23 05:46: pt was combative this am with staff, using foul language against the staff. Wanted to get out of bed which he did with the assistance of two nurses to the bedside commode. Pt kept saying Put my bed back where it belong, now, 'this is bull shit. pt was provided a clean brief, this nursed notice some redness around his buttocks but nothing open. Pt helped back in bed, gave his 3 warm blankets. bed alarm in place. Original Note: According to dayshift nurse, pt had an extremely hard BM and pt needed to help disimpacting himself. PT could benefict from increasing stool softener and or adding a laxative.
[2023-01-26 07:00] VITALS: O2SAT 96
[2023-01-26] MEDS: diphenhydrAMINE 25 MG TABLET PO ×2 (09:50→21:28)
[2023-01-26] MEDS: METOPROLOL IR 25 MG TABLET 12.5 MG PO (09:50)
[2023-01-26] MEDS: GABAPENTIN 100 MG CAPSULE PO ×2 (09:50→21:27)
[2023-01-26] MEDS: polyethylene glycoL 3350 17 GM POWD.PACK PO (09:55)
[2023-01-26 10:00] VITALS: BP 126/95; PULSE 71; RESP 17; TEMP 36.2; O2SAT 98
[2023-01-26] MEDS: DOCUSATE 100 MG CAPSULE PO ×2 (10:03→21:27)
--- NOTE | 2023-01-26 12:00 | CM.DPC ---
Addendum entered by CHARITY Bradshaw 01/26/23 15:00: ADD: Return email from [facility] [employer] Radha who states that they cannot provide other agencies patient's information without the interested agency going through [facility] [employer] ([phone]). SW forwarded this information to Director Jalyn to likely provide to [facility] and the assigned Court Visitor Breezy. BF Addendum entered by CHARITY Bradshaw 01/26/23 12:24: ADD: SW also left voicemail for APS Molding Engineer Blaine Jamil ([phone]) inquiring if they can provide any financial information for Court Visitor or [facility] to review. Blaine's states he is only working tomorrow Tues and Wed this week. JEOVANY also emailed Blaine requesting this same information as well to [email or web address]. BF Original Note: DCP Court Visitor In virtual meeting this morning with Erlinda from [employer] legal team, court visitor/GAL has been assigned and is Breezy Reyes from [place] ([phone] [email or web address]) and he will be attempting to meet with the patient (likely in person, but may attempt virtual meeting potentially). Per Erlinda at [employer] [facility], The Court authorized Breezy to obtain financial information/bank statements for Mr. Cotter, complete Medicaid/HCS applications/assessments, and consent to discharge. ?Breezy will typically agree to exercise this type of interim authority when authorized.? I will ask him to do so today, but feel free to contact Breezy anytime you need to discuss these types of matters and work with him to achieve Mr. Cotter?s discharge. Erlinda, [facility], requested SW to reach out to [facility] to determine if they can provide the financial information they have received from pt's son Shane during the past few attempts son has made at applying for LTC Medicaid for the patient. JEOVANY left voicemail with pt's assigned HCS SW Juliana Wadsworthalbert ([phone]). SW also left voicemail with HCS Molding Engineer Tia ([phone]). JEOVANY emailed pt's recent HCS financial worker Radha requesting if the financial information could be shared towards guardianship and placement to email . CHARITY Bradshaw
--- NOTE | 2023-01-26 15:13 | PM.PN.1 ---
Subjective Subjective Interval history: Patient indicates he has no new needs today. Resting calmly in bed. Exam Vital Signs (past 8 hours): - 01/26/23 10:00 Temperature 97.1 F L Pulse Rate 71 Respiratory Rate 17 Blood Pressure 126/95 H Pulse Oximetry 98 Oxygen Flow Rate 0 Oxygen Delivery Method Room Air Oxygen Flow Rate 0 Narrative Exam Narrative: Alert and oriented to name Resting comfortably in bed Heart is regular rate and rhythm without murmur Lungs are clear to auscultation bilaterally Extremities able to move volitionally, no ankle edema Objective Labs 01/12/23 04:54 01/12/23 04:54 [facility] Medical History Cerebrovascular accident Chronic GERD Dementia Hyperlipidemia Hypertension Social History household members: children Smoking Status: Former smoker alcohol intake: current Assessment & Plan Assessment & Plan narrative: Assessment and plan is unchanged: 1. Unstable discharge for a debilitated elderly male with multiple medical comorbidities Patient remains here under observation status while an appropriate disposition is identified.? He has no acute, decompensated medical issue, but is chronically weak and debilitated.? Care management is working diligently on appropriate and safe discharge. 2. History of stroke with left-sided weakness He has declined PT and OT during this admission. 3. Progressive transaminitis LFTs were improving on last labs drawn on January 12. 4. Coronary artery disease Previous stenting.? No acute symptoms.? Continue home meds 5. Hypertension Remains normotensive.? Continue usual home meds. 6. Dementia Reported per son.? There is no documentation of dementia in prior records.? Patient is alert and oriented - SLUMS on 01/13. 7. Depression Continue Zoloft 8. Hypothyroidism TSH low on admission at 0.128, levothyroxine was lowered from 150 to 125 mcg.? Has measured on 01/24/2023? TSH remains low at 0.22, however free T4 is normal and therefore replacement is appropriate at this time. Code status DNR DNI Prophylaxis Continue Lovenox Disposition pending placement, with guardianship pending. He has been served legal paperwork. Quality VTE Deep Vein Thrombosis/Pulmonary Embolism Present on Admission: No
[2023-01-26 19:00] VITALS: O2SAT 98
[2023-01-26 20:25] VITALS: BP 112/57; PULSE 59; RESP 18; TEMP 36.8; O2SAT 98
[2023-01-26] MEDS: SERTRALINE 50 MG TABLET 100 MG PO (21:27)
[2023-01-27] MEDS: LEVOTHYROXINE 125 MCG TABLET PO (06:23)
[2023-01-27 07:00] VITALS: BP 128/66; PULSE 69; RESP 18; TEMP 36.3; O2SAT 96
[2023-01-27] MEDS: GABAPENTIN 100 MG CAPSULE PO ×2 (09:06→21:00)
[2023-01-27] MEDS: HYDROCODONE/ACET 10/325 TABLET 1 TAB PO ×4 (09:06→23:29)
[2023-01-27] MEDS: DOCUSATE 100 MG CAPSULE PO ×2 (09:07→21:00)
[2023-01-27] MEDS: polyethylene glycoL 3350 17 GM POWD.PACK PO (09:07)
[2023-01-27] MEDS: METOPROLOL IR 25 MG TABLET 12.5 MG PO ×2 (09:07→21:00)
--- NOTE | 2023-01-27 10:59 | PC.NURSE ---
Awake for late b'fast. C/o pain in lower back. Med per orders.
--- NOTE | 2023-01-27 12:07 | PM.PN.1 ---
Subjective Subjective Interval history: Patient sleeping calmly in bed. Not awakened. Exam Vital Signs (past 8 hours): - 01/27/23 07:00 01/27/23 07:00 Temperature 97.4 F L Pulse Rate 69 Respiratory Rate 18 Blood Pressure 128/66 Pulse Oximetry 96 96 Oxygen Delivery Method Room Air Oxygen Flow Rate 0 Oxygen Delivery Method Room Air Oxygen Flow Rate 0 Narrative Exam Narrative: Alert and oriented to name Resting comfortably in bed Heart is regular rate and rhythm without murmur Lungs are clear to auscultation bilaterally Extremities able to move volitionally, no ankle edema Objective Labs 01/12/23 04:54 01/12/23 04:54 PFSH Medical History Cerebrovascular accident Chronic GERD Dementia Hyperlipidemia Hypertension Social History household members: children Smoking Status: Former smoker alcohol intake: current Assessment & Plan Assessment & Plan narrative: Assessment and plan is unchanged: 1. Unstable discharge for a debilitated elderly male with multiple medical comorbidities Patient remains here under observation status while an appropriate disposition is identified.? He has no acute, decompensated medical issue, but is chronically weak and debilitated.? Care management is working diligently on appropriate and safe discharge. 2. History of stroke with left-sided weakness He has declined PT and OT during this admission. 3. Progressive transaminitis LFTs were improving on last labs drawn on January 12. 4. Coronary artery disease Previous stenting.? No acute symptoms.? Continue home meds 5. Hypertension Remains normotensive.? Continue usual home meds. 6. Dementia Reported per son.? There is no documentation of dementia in prior records.? Patient is alert and oriented - SLUMS on 01/13. 7. Depression Continue Zoloft 8. Hypothyroidism TSH low on admission at 0.128, levothyroxine was lowered from 150 to 125 mcg.? Has measured on 01/24/2023? TSH remains low at 0.22, however free T4 is normal and therefore replacement is appropriate at this time. Code status DNR DNI Prophylaxis Continue Lovenox Disposition pending placement, with guardianship pending. He has been served legal paperwork. Quality VTE Deep Vein Thrombosis/Pulmonary Embolism Present on Admission: No
[2023-01-27 19:00] VITALS: O2SAT 97
[2023-01-27] MEDS: diphenhydrAMINE 25 MG TABLET PO (20:59)
[2023-01-27] MEDS: SERTRALINE 50 MG TABLET 100 MG PO (20:59)
[2023-01-27 21:35] VITALS: BP 130/61; PULSE 59; RESP 17; TEMP 36.6; O2SAT 97
[2023-01-28] MEDS: HYDROCODONE/ACET 10/325 TABLET 1 TAB PO ×4 (04:07→22:02)
[2023-01-28] MEDS: diphenhydrAMINE 25 MG TABLET PO ×2 (04:07→20:00)
[2023-01-28] MEDS: LEVOTHYROXINE 125 MCG TABLET PO (06:30)
[2023-01-28 07:00] VITALS: BP 121/56; PULSE 50; RESP 16; TEMP 36.6; O2SAT 96
[2023-01-28] MEDS: GABAPENTIN 100 MG CAPSULE PO ×2 (09:24→20:00)
[2023-01-28] MEDS: DOCUSATE 100 MG CAPSULE PO ×2 (09:26→20:01)
[2023-01-28] MEDS: polyethylene glycoL 3350 17 GM POWD.PACK PO (09:26)
[2023-01-28 19:00] VITALS: O2SAT 97
[2023-01-28 20:00] VITALS: BP 132/65; PULSE 60; RESP 16; O2SAT 97
[2023-01-28] MEDS: SERTRALINE 50 MG TABLET 100 MG PO (20:00)
[2023-01-28] MEDS: METOPROLOL IR 25 MG TABLET 12.5 MG PO (20:01)
[2023-01-29] MEDS: diphenhydrAMINE 25 MG TABLET PO (05:13)
[2023-01-29] MEDS: HYDROCODONE/ACET 10/325 TABLET 1 TAB PO ×2 (05:13→20:54)
[2023-01-29] MEDS: LEVOTHYROXINE 125 MCG TABLET PO (05:13)
[2023-01-29 07:00] VITALS: BP 133/60; PULSE 56; RESP 20; TEMP 36.9; O2SAT 95
[2023-01-29] MEDS: GABAPENTIN 100 MG CAPSULE PO ×2 (08:33→20:54)
[2023-01-29] MEDS: DOCUSATE 100 MG CAPSULE PO ×2 (08:33→20:53)
[2023-01-29] MEDS: polyethylene glycoL 3350 17 GM POWD.PACK PO (08:33)
[2023-01-29 19:00] VITALS: O2SAT 96
[2023-01-29] MEDS: SERTRALINE 50 MG TABLET 100 MG PO (20:53)
[2023-01-29] MEDS: METOPROLOL IR 25 MG TABLET 12.5 MG PO (20:54)
[2023-01-29 21:54] VITALS: BP 135/58; PULSE 59; RESP 20; TEMP 36.6; O2SAT 97
[2023-01-30] MEDS: LEVOTHYROXINE 125 MCG TABLET PO (05:59)
[2023-01-30 07:00] VITALS: BP 115/60; PULSE 52; RESP 18; TEMP 36.6; O2SAT 97
[2023-01-30] MEDS: DOCUSATE 100 MG CAPSULE PO (09:41)
[2023-01-30] MEDS: polyethylene glycoL 3350 17 GM POWD.PACK PO (09:41)
[2023-01-30] MEDS: GABAPENTIN 100 MG CAPSULE PO ×2 (09:46→20:38)
[2023-01-30] MEDS: ACETAMINOPHEN 325 MG TABLET 650 MG PO (20:37)
[2023-01-30] MEDS: SERTRALINE 50 MG TABLET 100 MG PO (20:38)
[2023-01-30] MEDS: METOPROLOL IR 25 MG TABLET 12.5 MG PO (20:38)
[2023-01-30 21:33] VITALS: BP 139/79; PULSE 66; RESP 16; TEMP 36.7; O2SAT 98
--- NOTE | 2023-01-30 22:26 | PC.NURSE ---
Patient is alert and oriented except to day of month. Breath sounds CTA with RA sat of 98%. HRR. Denies nausea. BT present and had loose stool on previous shift so Colace held tonight. Is voiding per urinal and denies dysuria. Is able to turn himself but because he has blanchable redness on coccyx staff is encouraging frequent repositioning; waffle cushion placed. Complains of lower back pain and was medicated with tylenol. Fall risk score is high and bed alarm is activated.
[2023-01-30] MEDS: diphenhydrAMINE 25 MG TABLET PO (22:39)
[2023-01-30] MEDS: HYDROCODONE/ACET 10/325 TABLET 1 TAB PO (22:39)
[2023-01-31] MEDS: HYDROCODONE/ACET 10/325 TABLET 1 TAB PO ×3 (02:28→17:57)
[2023-01-31] MEDS: LEVOTHYROXINE 125 MCG TABLET PO (05:59)
[2023-01-31 07:00] VITALS: BP 127/73; PULSE 58; RESP 18; TEMP 35.9; O2SAT 97
--- NOTE | 2023-01-31 07:25 | PM.PN.1 ---
Subjective Subjective Interval history: 72-year-old gentleman with hypertension, hyperlipidemia, dementia, previous stroke with left-sided weakness, coronary artery disease status post stents, depression, and general debility who was admitted with an unsafe home environment.? He remains hospitalized as care management is working towards a safe disposition for him. No new complaints. Carried forward daily. Exam Vital Signs (past 8 hours): Oxygen Delivery Method Room Air Oxygen Flow Rate 0 Narrative Exam Narrative: Alert and oriented to name Resting comfortably in bed Heart is regular rate and rhythm without murmur Lungs are clear to auscultation bilaterally Extremities able to move volitionally, no ankle edema Objective Labs 01/12/23 04:54 01/12/23 04:54 PFSH Medical History Cerebrovascular accident Chronic GERD Dementia Hyperlipidemia Hypertension Social History household members: children Smoking Status: Former smoker alcohol intake: current Assessment & Plan Assessment & Plan narrative: Assessment and plan is unchanged: 1. Unstable discharge for a debilitated elderly male with multiple medical comorbidities Patient remains here under observation status while an appropriate disposition is identified.? He has no acute, decompensated medical issue, but is chronically weak and debilitated.? Care management is working diligently on appropriate and safe discharge. 2. History of stroke with left-sided weakness He has declined PT and OT during this admission. 3. Progressive transaminitis LFTs were improving on last labs drawn on January 12. 4. Coronary artery disease Previous stenting.? No acute symptoms.? Continue home meds 5. Hypertension Remains normotensive.? Continue usual home meds. 6. Dementia Reported per son.? There is no documentation of dementia in prior records.? Patient is alert and oriented - SLUMS on 01/13. 7. Depression Continue Zoloft 8. Hypothyroidism TSH low on admission at 0.128, levothyroxine was lowered from 150 to 125 mcg.? Has measured on 01/24/2023? TSH remains low at 0.22, however free T4 is normal and therefore replacement is appropriate at this time. Code status DNR DNI Prophylaxis Continue Lovenox Disposition pending placement, with guardianship pending. He has been served legal paperwork. Quality VTE Deep Vein Thrombosis/Pulmonary Embolism Present on Admission: No
[2023-01-31] MEDS: GABAPENTIN 100 MG CAPSULE PO ×2 (08:22→20:42)
[2023-01-31] MEDS: diphenhydrAMINE 25 MG TABLET PO ×2 (09:53→19:53)
[2023-01-31] MEDS: METOPROLOL IR 25 MG TABLET 12.5 MG PO ×2 (09:53→20:42)
[2023-01-31 19:55] VITALS: BP 104/58; PULSE 62; RESP 18; TEMP 36.9; O2SAT 97
[2023-01-31] MEDS: SERTRALINE 50 MG TABLET 100 MG PO (20:42)
[2023-01-31] MEDS: DOCUSATE 100 MG CAPSULE PO (20:42)
--- NOTE | 2023-02-01 00:36 | PC.NURSE ---
Addendum entered by Graciela Gaspar R.N. 02/01/23 05:45: At 0400 patient more oriented but now crying, with tears streaming from his eyes, say he is scared. Doesn't seem to recognize his room as where he has been since the beginning of December. Believes there used to be a second bed in his room and is wondering what happened to the patient's who used to be across the [address] (hospitalist office is across [address] and used to have the lights on every night). Does recognize staff but still expressing fear. Provided reassurance and allowed to vent. Gotten up in wheelchair and staff member took him for ride around the hospital for 30-40 minutes and then back to room and now patient is much calmer. Addendum entered by Graciela Gaspar R.N. 02/01/23 03:21: Continues to talk to the guys in his room and heard to be hollering out to them. When talked to he is now stating they are almost done. Informs RN they have to move the room 2 more feet although he doesn't think they'll be able to make that. States they are doing it to make more rooms. Addendum entered by Graciela Gaspar R.N. 02/01/23 02:57: Overheard patient talking in his room. When questioned states he is talking to the 4 guys in his room. States they are taking the wall down in the room to make room for additional beds. When attempted to reorient patient becomes angry at RN. Turned light on in room to show him no one was there and he stated well they better be there. Was able to converse with him about his family and seemed calmer but when asked if he wanted light off in room he said no because he had to make certain the 4 guys finished the work they needed to do. After leaving the room can still hear patient talking to the 4 guys. Original Note: Patient is alert and oriented although has difficulty remembering day of month and day of week. Breath sounds CTA with RA sat of 97%. HRR. Denies nausea. BT present and had 2 soft, formed stools on previous shift today. Voiding per urinal and denies dysuria although tends to void in small amounts. Is able to turn himself but coccyx is light pink so has waffle cushion under him. Gait not assessed but reports he is able to get up with walker and 1 assist although has some chronic left sided weakness. Complains of low back pain but states it is never better than a 7/10; requests vicodin prn. Complained of itching at start of shift and was medicated with Benadryl with resolution of symptoms. Fall risk score is high and bed alarm is activated.
[2023-02-01] MEDS: LEVOTHYROXINE 125 MCG TABLET PO (05:51)
[2023-02-01 07:00] VITALS: BP 127/68; PULSE 59; RESP 16; TEMP 36.1; O2SAT 98
[2023-02-01] MEDS: METOPROLOL IR 25 MG TABLET 12.5 MG PO ×2 (08:10→20:14)
[2023-02-01] MEDS: DOCUSATE 100 MG CAPSULE PO (08:11)
[2023-02-01] MEDS: GABAPENTIN 100 MG CAPSULE PO ×2 (08:11→20:14)
--- NOTE | 2023-02-01 13:29 | P.PN_ITS ---
Subjective Subjective Interval history: 72-year-old gentleman with hypertension, hyperlipidemia, dementia, previous stroke with left-sided weakness, coronary artery disease status post stents, depression, and general debility who was admitted with an unsafe home environment.? He remains hospitalized as care management is working towards a safe disposition for him. No new complaints. Carried forward daily. Exam Vital Signs (past 8 hours): - 02/01/23 07:00 Temperature 97 F L Pulse Rate 59 L Respiratory Rate 16 Blood Pressure 127/68 Pulse Oximetry 98 Oxygen Flow Rate 0 Oxygen Delivery Method Room Air Oxygen Flow Rate 0 Narrative Exam Narrative: Alert and oriented to name Resting comfortably in bed Heart is regular rate and rhythm without murmur Lungs are clear to auscultation bilaterally Extremities able to move volitionally, no ankle edema Objective Labs 01/12/23 04:54 01/12/23 04:54 PFSH Medical History Cerebrovascular accident Chronic GERD Dementia Hyperlipidemia Hypertension Social History household members: children Smoking Status: Former smoker alcohol intake: current Assessment & Plan Assessment & Plan narrative: Assessment and plan is unchanged: 1. Unstable discharge for a debilitated elderly male with multiple medical comorbidities Patient remains here under observation status while an appropriate disposition i s identified.? He has no acute, decompensated medical issue, but is chronically weak and debilitated.? Care management is working diligently on appropriate and safe discharge. 2. History of stroke with left-sided weakness He has declined PT and OT during this admission. 3. Progressive transaminitis LFTs were improving on last labs drawn on January 12. 4. Coronary artery disease Previous stenting.? No acute symptoms.? Continue home meds 5. Hypertension Remains normotensive.? Continue usual home meds. 6. Dementia Reported per son.? There is no documentation of dementia in prior records.? Patient is alert and oriented - SLUMS on 01/13. 7. Depression Continue Zoloft 8. Hypothyroidism TSH low on admission at 0.128, levothyroxine was lowered from 150 to 125 mcg.? Has measured on 01/24/2023? TSH remains low at 0.22, however free T4 is normal and therefore replacement is appropriate at this time. Code status DNR DNI Prophylaxis Continue Lovenox Disposition pending placement, with guardianship pending. He has been served legal paperwork. Quality VTE Deep Vein Thrombosis/Pulmonary Embolism Present on Admission: No
[2023-02-01 19:00] VITALS: O2SAT 98
[2023-02-01 19:26] VITALS: BP 134/67; PULSE 61; RESP 18; TEMP 37.2; O2SAT 98
[2023-02-01] MEDS: HYDROCODONE/ACET 10/325 TABLET 1 TAB PO (20:13)
[2023-02-01] MEDS: ACETAMINOPHEN 325 MG TABLET 650 MG PO (20:13)
[2023-02-01] MEDS: diphenhydrAMINE 25 MG TABLET PO (20:14)
[2023-02-01] MEDS: SERTRALINE 50 MG TABLET 100 MG PO (20:15)
[2023-02-02] MEDS: HYDROCODONE/ACET 10/325 TABLET 1 TAB PO ×4 (01:58→20:24)
[2023-02-02] MEDS: diphenhydrAMINE 25 MG TABLET PO ×2 (01:58→20:11)
[2023-02-02] MEDS: LEVOTHYROXINE 125 MCG TABLET PO (06:10)
[2023-02-02 07:00] VITALS: BP 124/61; PULSE 54; RESP 16; TEMP 36.4; O2SAT 98
[2023-02-02] MEDS: GABAPENTIN 100 MG CAPSULE PO ×2 (09:30→20:11)
[2023-02-02] MEDS: METOPROLOL IR 25 MG TABLET 12.5 MG PO ×2 (09:30→20:11)
--- NOTE | 2023-02-02 13:27 | PM.PN.1 ---
Subjective Subjective Interval history: 72-year-old gentleman with hypertension, hyperlipidemia, dementia, previous stroke with left-sided weakness, coronary artery disease status post stents, depression, and general debility who was admitted with an unsafe home environment.? He remains hospitalized as care management is working towards a safe disposition for him. No new complaints. Carried forward daily. Exam Vital Signs (past 8 hours): - 02/02/23 07:00 02/02/23 08:00 Temperature 97.5 F L Pulse Rate 54 L Respiratory Rate 16 Blood Pressure 124/61 Pulse Oximetry 98 Oxygen Delivery Method Room Air Oxygen Flow Rate 0 Oxygen Delivery Method Room Air Oxygen Flow Rate 0 Narrative Exam Narrative: Alert and oriented to name Resting comfortably in bed Heart is regular rate and rhythm without murmur Lungs are clear to auscultation bilaterally Extremities able to move volitionally, no ankle edema Objective Labs 01/12/23 04:54 01/12/23 04:54 PFSH Medical History Cerebrovascular accident Chronic GERD Dementia Hyperlipidemia Hypertension Social History household members: children Smoking Status: Former smoker alcohol intake: current Assessment & Plan Assessment & Plan narrative: Assessment and plan is unchanged: 1. Unstable discharge for a debilitated elderly male with multiple medical comorbidities Patient remains here under observation status while an appropriate disposition is identified.? He has no acute, decompensated medical issue, but is chronically weak and debilitated.? Care management is working diligently on appropriate and safe discharge. 2. History of stroke with left-sided weakness He has declined PT and OT during this admission. 3. Progressive transaminitis LFTs were improving on last labs drawn on January 12. 4. Coronary artery disease Previous stenting.? No acute symptoms.? Continue home meds 5. Hypertension Remains normotensive.? Continue usual home meds. 6. Dementia Reported per son.? There is no documentation of dementia in prior records.? Patient is alert and oriented - SLUMS on 01/13. 7. Depression Continue Zoloft 8. Hypothyroidism TSH low on admission at 0.128, levothyroxine was lowered from 150 to 125 mcg.? Has measured on 01/24/2023? TSH remains low at 0.22, however free T4 is normal and therefore replacement is appropriate at this time. Code status DNR DNI Prophylaxis Continue Lovenox Disposition pending placement, with guardianship pending. He has been served legal paperwork. Quality VTE Deep Vein Thrombosis/Pulmonary Embolism Present on Admission: No
[2023-02-02 19:00] VITALS: BP 109/61; PULSE 57; RESP 20; TEMP 36.5; O2SAT 97
[2023-02-02] MEDS: SERTRALINE 50 MG TABLET 100 MG PO (20:10)
[2023-02-02] MEDS: ACETAMINOPHEN 325 MG TABLET 650 MG PO (20:14)
[2023-02-03] MEDS: ACETAMINOPHEN 325 MG TABLET 650 MG PO ×2 (00:54→20:53)
[2023-02-03] MEDS: HYDROCODONE/ACET 10/325 TABLET 1 TAB PO ×4 (00:54→22:54)
[2023-02-03] MEDS: LEVOTHYROXINE 125 MCG TABLET PO (05:39)
[2023-02-03 07:00] VITALS: BP 122/58; PULSE 57; RESP 16; TEMP 37; O2SAT 95; O2SAT 98
--- NOTE | 2023-02-03 08:11 | PM.PN.1 ---
Subjective Subjective Interval history: 72-year-old gentleman with hypertension, hyperlipidemia, dementia, previous stroke with left-sided weakness, coronary artery disease status post stents, depression, and general debility who was admitted with an unsafe home environment.? He remains hospitalized as care management is working towards a safe disposition for him. No new complaints. Carried forward daily. Exam Vital Signs (past 8 hours): - 02/03/23 07:00 Pulse Oximetry 95 Oxygen Delivery Method Room Air Oxygen Delivery Method Room Air Oxygen Flow Rate 0 Narrative Exam Narrative: Alert and oriented to name Resting comfortably in bed Heart is regular rate and rhythm without murmur Lungs are clear to auscultation bilaterally Extremities able to move volitionally, no ankle edema Objective Labs 01/12/23 04:54 01/12/23 04:54 PFSH Medical History Cerebrovascular accident Chronic GERD Dementia Hyperlipidemia Hypertension Social History household members: children Smoking Status: Former smoker alcohol intake: current Assessment & Plan Assessment & Plan narrative: Assessment and plan is unchanged: 1. Unstable discharge for a debilitated elderly male with multiple medical comorbidities Patient remains here under observation status while an appropriate disposition is identified.? He has no acute, decompensated medical issue, but is chronically weak and debilitated.? Care management is working diligently on appropriate and safe discharge. 2. History of stroke with left-sided weakness He has declined PT and OT during this admission. 3. Progressive transaminitis LFTs were improving on last labs drawn on January 12. 4. Coronary artery disease Previous stenting.? No acute symptoms.? Continue home meds 5. Hypertension Remains normotensive.? Continue usual home meds. 6. Dementia Reported per son.? There is no documentation of dementia in prior records.? Patient is alert and oriented - SLUMS on 01/13. 7. Depression Continue Zoloft 8. Hypothyroidism TSH low on admission at 0.128, levothyroxine was lowered from 150 to 125 mcg.? Has measured on 01/24/2023? TSH remains low at 0.22, however free T4 is normal and therefore replacement is appropriate at this time. Code status DNR DNI Prophylaxis Continue Lovenox Disposition pending placement, with guardianship pending. He has been served legal paperwork. Quality VTE Deep Vein Thrombosis/Pulmonary Embolism Present on Admission: No
[2023-02-03] MEDS: GABAPENTIN 100 MG CAPSULE PO ×2 (09:18→20:49)
[2023-02-03] MEDS: DOCUSATE 100 MG CAPSULE PO (09:18)
[2023-02-03] MEDS: METOPROLOL IR 25 MG TABLET 12.5 MG PO ×2 (09:19→20:49)
--- NOTE | 2023-02-03 11:15 | CM.DPC ---
DCP Cont: In virtual meeting this morning with Erlinda from [employer] legal team, court visitor/GAL Breezy Reyes from [place] ([phone] [email or web address]) should be getting access to pt's [employer] records towards determining pt's financial assets and SW provided pt's address from his home sale for Breezy to look into towards attempting to get pt Medicaid Eligible. Breezy also plans to call son Sudhakar and Dtr duyen to review pt's mail towards gathering additional information. Next court date is Mar and if Court Visitor Breezy has completed his assessment and presented to the court then [facility] can then present an identified Guardian nominee to the courts. Easier to find an accepting Guardian agency if pt is Medicaid eligible as Guardian will be able to be paid from Medicaid. [facility] can then complete the paperwork for [facility] to request Guardianship [employer] through [facility]. [facility] will also provide the Physician Assessment form to CM team this week for Hospitalist to review and then sign or change any of the pwk as needed that will then be presented to the court in their petition for Guardianship. Erlinda with [employer] will be in close contact with Court Visitor Breezy this week to confirm if he has done bedside assessment with pt at the hospital, confirm he has received [employer] documentation, and if he has received approval from the petition to get access to APS documentation. CHARITY Bradshaw
[2023-02-03] MEDS: diphenhydrAMINE 25 MG TABLET PO (18:20)
[2023-02-03 19:00] VITALS: O2SAT 99
[2023-02-03] MEDS: SERTRALINE 50 MG TABLET 100 MG PO (20:53)
[2023-02-03 21:43] VITALS: BP 118/66; PULSE 63; RESP 16; TEMP 36.7; O2SAT 99
[2023-02-04] MEDS: diphenhydrAMINE 25 MG TABLET PO ×3 (05:56→18:52)
[2023-02-04] MEDS: HYDROCODONE/ACET 10/325 TABLET 1 TAB PO ×4 (05:56→21:10)
[2023-02-04] MEDS: LEVOTHYROXINE 125 MCG TABLET PO (05:56)
[2023-02-04 07:00] VITALS: O2SAT 96
[2023-02-04 08:30] VITALS: BP 130/61; PULSE 50; RESP 18; TEMP 36.4; O2SAT 97
[2023-02-04] MEDS: METOPROLOL IR 25 MG TABLET 12.5 MG PO (08:43)
[2023-02-04] MEDS: GABAPENTIN 100 MG CAPSULE PO ×2 (08:44→21:10)
[2023-02-04 19:00] VITALS: O2SAT 98
[2023-02-04 20:10] VITALS: BP 129/52; PULSE 60; RESP 18; TEMP 36.8; O2SAT 98
[2023-02-04] MEDS: SERTRALINE 50 MG TABLET 100 MG PO (21:10)
[2023-02-05] MEDS: HYDROCODONE/ACET 10/325 TABLET 1 TAB PO ×5 (02:16→22:50)
[2023-02-05] MEDS: LEVOTHYROXINE 125 MCG TABLET PO (06:38)
[2023-02-05 07:00] VITALS: O2SAT 98
[2023-02-05] MEDS: GABAPENTIN 100 MG CAPSULE PO ×2 (08:24→22:00)
[2023-02-05] MEDS: diphenhydrAMINE 25 MG TABLET PO ×2 (08:24→18:47)
[2023-02-05] MEDS: METOPROLOL IR 25 MG TABLET 12.5 MG PO ×2 (08:24→22:00)
--- NOTE | 2023-02-05 09:38 | PM.PN.1 ---
Subjective Subjective Interval history: No current complaints, he is awaiting placement. Exam Vital Signs (past 8 hours): Oxygen Delivery Method Room Air Oxygen Flow Rate 0 Narrative Exam Narrative: NAD Lungs clear Heart regular Abdomen soft No leg edema Normal speech Objective Labs 01/12/23 04:54 01/12/23 04:54 [facility] Medical History Cerebrovascular accident Chronic GERD Dementia Hyperlipidemia Hypertension Social History household members: children Smoking Status: Former smoker alcohol intake: current Assessment & Plan Assessment & Plan narrative: 1. Plcement pending, under observation pending placement. 2. Remote CVA and left hemiparesis, POAS. 3. CAD, POAS. Continue usual medications. 4. HTN, POAS. Continue usual medications. 5. Dementia, POAS. DNR/DNI Dispo: placement pending. Time Spent With Patient Time with patient: less than 30 minutes Quality VTE Deep Vein Thrombosis/Pulmonary Embolism Present on Admission: No
[2023-02-05 16:22] VITALS: BP 119/59; PULSE 57; RESP 16; TEMP 36.3; O2SAT 96
[2023-02-05 19:00] VITALS: O2SAT 99
[2023-02-05 20:00] VITALS: BP 116/63; PULSE 55; RESP 17; TEMP 36.5; O2SAT 99
[2023-02-05] MEDS: SERTRALINE 50 MG TABLET 100 MG PO (22:00)
--- NOTE | 2023-02-06 02:39 | PC.NURSE ---
Pt struggling with pain in his back this shift, and concerned about being awake all night, then too sleepy to do anything all day. Pt is pleasant and conversant, using the urinal and call light appropriately, and turning self in bed.
[2023-02-06] MEDS: HYDROCODONE/ACET 10/325 TABLET 1 TAB PO ×2 (02:43→08:47)
[2023-02-06] MEDS: diphenhydrAMINE 25 MG TABLET PO ×2 (02:43→08:47)
[2023-02-06] MEDS: LEVOTHYROXINE 125 MCG TABLET PO (06:13)
[2023-02-06 07:00] VITALS: O2SAT 96
[2023-02-06 07:37] VITALS: BP 114/68; PULSE 52; RESP 16; TEMP 36.5; O2SAT 96
--- NOTE | 2023-02-06 07:47 | PM.PN.1 ---
Subjective Subjective Interval history: Insomnia (melatonin ordered). No new concerns. No pain or dyspnea. Exam Vital Signs (past 8 hours): - 02/06/23 07:37 Temperature 97.7 F Pulse Rate 52 L Respiratory Rate 16 Blood Pressure 114/68 Pulse Oximetry 96 Oxygen Flow Rate 0 Oxygen Delivery Method Room Air Oxygen Flow Rate 0 Narrative Exam Narrative: NAD, oriented, pleasant Lungs clear, normal effort Heart regular and without murmur Abdomen soft and non-tender No leg edema Objective Labs 01/12/23 04:54 01/12/23 04:54 PFS Medical History Cerebrovascular accident Chronic GERD Dementia Hyperlipidemia Hypertension Social History household members: children Smoking Status: Former smoker alcohol intake: current Assessment & Plan Assessment & Plan narrative: Assessment & Plan narrative: 1. Placement pending, under observation pending placement. 2. Remote CVA and left hemiparesis, POAS (present on admission and stable). 3. CAD, POAS. Continue usual medications. 4. HTN, POAS. Continue usual medications. 5. Dementia, POAS. 6. Insomnia, new and active. Plan: -add melatonin. -encourage out of bed -discuss with social work DNR/DNI Dispo: placement pending. Time Spent With Patient Time with patient: less than 30 minutes Quality VTE Deep Vein Thrombosis/Pulmonary Embolism Present on Admission: No
[2023-02-06] MEDS: GABAPENTIN 100 MG CAPSULE PO ×2 (08:47→20:24)
[2023-02-06 19:44] VITALS: BP 125/64; PULSE 62; RESP 16; TEMP 36.9; O2SAT 97
[2023-02-06] MEDS: SERTRALINE 50 MG TABLET 100 MG PO (20:22)
[2023-02-06] MEDS: METOPROLOL IR 25 MG TABLET 12.5 MG PO (20:23)
[2023-02-06] MEDS: DOCUSATE 100 MG CAPSULE PO (20:23)
[2023-02-06] MEDS: MELATONIN 3 MG TABLET 6 MG PO (20:24)
--- NOTE | 2023-02-07 06:40 | PC.NURSE ---
Pt slept most of the night. requested to have his night medications early tonight. Pt used his urinal on his own most of the night. Did had an episode where he spill some urine on him, needed his brief changed. This nurse noticed pt has a smear of stool in his brief. This nurse tried to provide rosita care which pt declined.
[2023-02-07 07:00] VITALS: O2SAT 95
--- NOTE | 2023-02-07 09:18 | PM.PN.1 ---
Subjective Subjective Interval history: Patient and nursing voices no new complaints. Exam Vital Signs (past 8 hours): Oxygen Delivery Method Room Air Oxygen Flow Rate 0 Narrative Exam Narrative: Exam Narrative: NAD, oriented to person, pleasant Lungs clear, normal effort Heart regular and without murmur Abdomen soft and non-tender No leg edema Objective Labs 01/12/23 04:54 01/12/23 04:54 PFSH Medical History Cerebrovascular accident Chronic GERD Dementia Hyperlipidemia Hypertension Social History household members: children Smoking Status: Former smoker alcohol intake: current Assessment & Plan Assessment & Plan narrative: 1. Placement pending, under observation pending placement. Has [id number]-[id number]. 2. Remote CVA and left hemiparesis, POAS (present on admission and stable). 3. CAD, POAS. Continue usual medications. 4. HTN, POAS. Continue usual medications. 5. Dementia, POAS. 6. Insomnia, new post admission and active. Continue treatment with melatonin. Time spent with patient with greater than 50% of time spent in counseling or coordination of care: 15 minutes. Code status: Do not resuscitate do not intubate DVT prophylaxis: Enoxaparin 40 mg subQ daily Substitute decision maker: Consistently in place due to patient being incompetent to make decisions and has a POA. Dispo: placement pending. Quality VTE Deep Vein Thrombosis/Pulmonary Embolism Present on Admission: No
[2023-02-07] MEDS: DOCUSATE 100 MG CAPSULE PO ×2 (10:26→20:05)
[2023-02-07] MEDS: HYDROCODONE/ACET 10/325 TABLET 1 TAB PO ×2 (10:26→19:25)
[2023-02-07] MEDS: METOPROLOL IR 25 MG TABLET 12.5 MG PO ×2 (10:26→20:05)
[2023-02-07] MEDS: GABAPENTIN 100 MG CAPSULE PO ×2 (10:26→20:05)
[2023-02-07] MEDS: LEVOTHYROXINE 125 MCG TABLET PO (10:31)
[2023-02-07 17:00] VITALS: BP 141/68; PULSE 78; RESP 17; TEMP 36.2; O2SAT 96
[2023-02-07 19:41] VITALS: BP 121/69; PULSE 63; RESP 18; TEMP 36.6; O2SAT 97
[2023-02-07 19:44] VITALS: O2SAT 96
[2023-02-07] MEDS: SERTRALINE 50 MG TABLET 100 MG PO (20:05)
[2023-02-07] MEDS: MELATONIN 3 MG TABLET 6 MG PO (20:05)
[2023-02-07] MEDS: CALCIUM CARBONATE 500 MG TAB 1000 MG PO (23:21)
[2023-02-08] MEDS: HYDROCODONE/ACET 10/325 TABLET 1 TAB PO ×6 (01:57→22:25)
[2023-02-08] MEDS: diphenhydrAMINE 25 MG TABLET PO ×2 (04:59→14:29)
[2023-02-08] MEDS: LEVOTHYROXINE 125 MCG TABLET PO (05:40)
--- NOTE | 2023-02-08 06:21 | PC.NURSE ---
Pt c/o of not being able to sleep tonight, despite 6 mg of melatonin, 25 mg of benadryl, and 2 norcos tonight. pt also c/o heart burn tonight and now has a new order from [facility] as needed. Pt was appropiate tonight, using call light appropriately.
[2023-02-08 07:00] VITALS: BP 138/74; PULSE 57; RESP 17; O2SAT 95; O2SAT 97
--- NOTE | 2023-02-08 09:27 | P.PN_ITS ---
Subjective Subjective Interval history: No new nursing or patient concerns. Patient politely states that everything is fine. Exam Vital Signs (past 8 hours): - 02/08/23 07:00 02/08/23 07:00 Pulse Rate 57 L Respiratory Rate 17 Blood Pressure 138/74 Pulse Oximetry 95 97 Oxygen Delivery Method Room Air Oxygen Flow Rate 0 Oxygen Delivery Method Room Air Oxygen Flow Rate 0 Narrative Exam Narrative: NAD, oriented to person, pleasant Lungs clear, normal effort Heart regular and without murmur Abdomen soft and non-tender No leg edema Objective Labs 01/12/23 04:54 01/12/23 04:54 [facility] Medical History Cerebrovascular accident Chronic GERD Dementia Hyperlipidemia Hypertension Social History household members: children Smoking Status: Former smoker alcohol intake: current Assessment & Plan Assessment & Plan narrative: 1. Placement pending, under observation pending placement.? Has [id number]. 2. Remote CVA and left hemiparesis, POAS (present on admission and stable). 3. CAD, POAS. Continue usual medications. 4. HTN, POAS. Continue usual medications. 5. Dementia, POAS. 6. Insomnia, new post admission and active.? Continue treatment with melatonin. Code status:? Do not resuscitate do not intubate DVT prophylaxis:? Enoxaparin 40 mg subQ daily Substitute decision maker:? Consistently in place due to patient being incompe tent to make decisions and has a POA. Dispo: placement pending. Time Spent With Patient Time with patient: less than 30 minutes Quality VTE Deep Vein Thrombosis/Pulmonary Embolism Present on Admission: No
[2023-02-08] MEDS: DOCUSATE 100 MG CAPSULE PO ×2 (10:26→20:22)
[2023-02-08] MEDS: GABAPENTIN 100 MG CAPSULE PO ×2 (10:27→20:24)
[2023-02-08] MEDS: METOPROLOL IR 25 MG TABLET 12.5 MG PO (10:27)
[2023-02-08 19:25] VITALS: BP 121/47; PULSE 55; RESP 18; TEMP 36.6; O2SAT 96
[2023-02-08] MEDS: MELATONIN 3 MG TABLET 6 MG PO (20:22)
[2023-02-08] MEDS: SERTRALINE 50 MG TABLET 100 MG PO (20:23)
--- NOTE | 2023-02-09 06:36 | PC.NURSE ---
1929: pt demanding pain medicine, stating 'it was due at 6;30 pm and i've been calling and waiting for hours. This RN spoke with patient, saying I just got here, but will check the chart and be back. Pt yelled at RN its your fucking fault you weren't here. RN asked pt to not speak this way. Patient repeatedly yelled with curse words. Pain and night meds given. Pt left with call light and bed alarm on.
[2023-02-09 07:00] VITALS: BP 127/66; PULSE 57; RESP 16; TEMP 36.8; O2SAT 99
[2023-02-09] MEDS: LEVOTHYROXINE 125 MCG TABLET PO (08:27)
[2023-02-09] MEDS: DOCUSATE 100 MG CAPSULE PO ×2 (08:27→19:21)
[2023-02-09] MEDS: GABAPENTIN 100 MG CAPSULE PO ×2 (08:28→19:20)
[2023-02-09] MEDS: METOPROLOL IR 25 MG TABLET 12.5 MG PO (08:28)
[2023-02-09] MEDS: HYDROCODONE/ACET 10/325 TABLET 1 TAB PO ×4 (08:29→23:41)
--- NOTE | 2023-02-09 09:40 | PM.PN.1 ---
Subjective Subjective Interval history: No new concerns by nursing or the patient. Exam Vital Signs (past 8 hours): - 02/09/23 07:00 Temperature 98.3 F Pulse Rate 57 L Respiratory Rate 16 Blood Pressure 127/66 Pulse Oximetry 99 Oxygen Flow Rate 0 Oxygen Delivery Method Room Air Oxygen Flow Rate 0 Narrative Exam Narrative: NAD, oriented to person, pleasant Lungs clear, normal effort Heart regular and without murmur Abdomen soft and non-tender No leg edema Objective Labs 01/12/23 04:54 01/12/23 04:54 PFSH Medical History Cerebrovascular accident Chronic GERD Dementia Hyperlipidemia Hypertension Social History household members: children Smoking Status: Former smoker alcohol intake: current Assessment & Plan Assessment & Plan narrative: 1. Placement pending, under observation pending placement.? Has soifb-tz-[id number]. 2. Remote CVA and left hemiparesis, POAS (present on admission and stable). 3. CAD, POAS. Continue usual medications. 4. HTN, POAS. Continue usual medications. 5. Dementia, POAS. 6. Insomnia, new post admission and active.? Continue treatment with melatonin. Code status:? Do not resuscitate do not intubate DVT prophylaxis:? Enoxaparin 40 mg subQ daily Substitute decision maker:?Has a POA. Dispo: placement pending. Time Spent With Patient Time with patient: less than 30 minutes Quality VTE Deep Vein Thrombosis/Pulmonary Embolism Present on Admission: No
--- NOTE | 2023-02-09 10:35 | PC.NURSE ---
At around 0900, STREET SWEEPER OPERATOR went in room to help pt sit up in bed for breakfast. STREET SWEEPER OPERATOR went and got warm blankets for pt, and once returned, pt began to become frustrated with STREET SWEEPER OPERATOR. STREET SWEEPER OPERATOR handed a towel for pt to put on his chest while eating, and pt responded with you're such a lazy bitch STREET SWEEPER OPERATOR did not respond and finished getting breakfast set up.
--- NOTE | 2023-02-09 13:50 | CM.DPC ---
DCP Cont: SW attended virtual meeting this morning with Erlinda from [facility] legal team, CM Director Lb Gunderson for weekly update from legal team and Erlinda confirmed that she submitted the order to the court on 02/05 to receive the APS records. Erlinda states the Director And Professor determined that APS could provide the records for pt's closed APS investigation information and could make the decision on if they would supply records on any currently open investigations with the patient. Erlinda states court visitor/GAL Breezy Reyes from [place] ([phone] [email or web address]) continues to work with [employer] Legal team towards getting pt's financial/bank documentation and anticipate he should receive this week. Breezy had met bedside with pt last week and left the form for Professional Evaluation Medical Report for Hospitalist to complete towards presenting to the court and Erlinda states she has the same form that is auto populated from the medical records they have reviewed and recommended waiting for her to email to CM team this week for Hospitalist to review and sign and send back. Next court hearing is Mar 20. CHARITY Bradshaw
[2023-02-09] MEDS: diphenhydrAMINE 25 MG TABLET PO (18:15)
[2023-02-09 19:00] VITALS: BP 122/62; PULSE 54; RESP 16; TEMP 36.4; O2SAT 96
[2023-02-09] MEDS: SERTRALINE 50 MG TABLET 100 MG PO (19:21)
[2023-02-09] MEDS: MELATONIN 3 MG TABLET 6 MG PO (19:21)
[2023-02-10] MEDS: HYDROCODONE/ACET 10/325 TABLET 1 TAB PO ×2 (09:51→20:49)
[2023-02-10] MEDS: DOCUSATE 100 MG CAPSULE PO ×2 (09:51→20:49)
[2023-02-10] MEDS: GABAPENTIN 100 MG CAPSULE PO ×2 (09:51→20:49)
[2023-02-10] MEDS: METOPROLOL IR 25 MG TABLET 12.5 MG PO ×2 (09:53→20:49)
[2023-02-10 09:55] VITALS: BP 118/60; PULSE 60; RESP 15; TEMP 36.6; O2SAT 97
--- NOTE | 2023-02-10 16:53 | P.PN_ITS ---
Subjective Subjective Interval history: Patient today complains of gum pain. He states he has a retained toothpick. It is unknown if he has access to toothpicks with meals. Exam Vital Signs (past 8 hours): - 02/10/23 09:55 Temperature 98 F Pulse Rate 60 Respiratory Rate 15 Blood Pressure 118/60 Pulse Oximetry 97 Oxygen Flow Rate 0 Oxygen Delivery Method Room Air Oxygen Flow Rate 0 Narrative Exam Narrative: NAD, oriented to person, agitated ENT: aphthous ulceration, no obvious foreign body, poor dentition Ext: no edema Objective Labs 01/12/23 04:54 01/12/23 04:54 PFSH Medical History Cerebrovascular accident Chronic GERD Dementia Hyperlipidemia Hypertension Social History household members: children Smoking Status: Former smoker alcohol intake: current Assessment & Plan Assessment & Plan narrative: 1. Placement pending, under observation pending placement.? Has lbidt-nl-vowtdfqk. 2. Remote CVA and left hemiparesis, POAS (present on admission and stable). 3. CAD, POAS. Continue usual medications. 4. HTN, POAS. Continue usual medications. 5. Dementia, POAS. 6. Insomnia, new post admission and active.? Continue treatment with melatonin. New: apthous ulcer of the mouth. No obvious foreign body, continue to monitor, start cetacaine spray as formulary but will order orajel as it is a non- formulary medication. Code status:? Do not resuscitate do not intubate DVT prophylaxis:? Enoxaparin 40 mg subQ daily Substitute decision maker:?Has a POA. Dispo: placement pending. Time Spent With Patient Time with patient: less than 30 minutes Quality VTE Deep Vein Thrombosis/Pulmonary Embolism Present on Admission: No
[2023-02-10 19:00] VITALS: O2SAT 99
[2023-02-10 19:37] VITALS: BP 138/77; PULSE 64; RESP 16; TEMP 36.3; O2SAT 99
[2023-02-10] MEDS: SERTRALINE 50 MG TABLET 100 MG PO (20:49)
[2023-02-10] MEDS: TETRACAINE/BENZOCAINE/BUTAMBEN (CETACAINE) BOTTLE 1 SPRAY TOP (20:50)
[2023-02-10] MEDS: diphenhydrAMINE 25 MG TABLET PO (20:51)
[2023-02-10] MEDS: MELATONIN 3 MG TABLET 6 MG PO (20:51)
[2023-02-11] MEDS: diphenhydrAMINE 25 MG TABLET PO (02:47)
[2023-02-11] MEDS: HYDROCODONE/ACET 10/325 TABLET 1 TAB PO ×4 (02:47→23:57)
[2023-02-11] MEDS: LEVOTHYROXINE 125 MCG TABLET PO (06:56)
[2023-02-11 07:00] VITALS: BP 125/62; PULSE 56; RESP 16; TEMP 36.5; O2SAT 95
[2023-02-11] MEDS: DOCUSATE 100 MG CAPSULE PO ×2 (10:09→21:07)
[2023-02-11] MEDS: GABAPENTIN 100 MG CAPSULE PO ×2 (10:09→21:07)
[2023-02-11] MEDS: METOPROLOL IR 25 MG TABLET 12.5 MG PO ×2 (10:10→21:08)
[2023-02-11] MEDS: polyethylene glycoL 3350 17 GM POWD.PACK PO (10:15)
--- NOTE | 2023-02-11 14:20 | PM.PN.1 ---
Subjective Subjective Interval history: 72-year-old gentleman with hypertension, hyperlipidemia, dementia, previous stroke with left-sided weakness, coronary artery disease status post stents, depression, and general debility who was admitted with an unsafe home environment.? He remains hospitalized as care management is working towards a safe disposition for him. No new complaints. Carried forward daily. Exam Vital Signs (past 8 hours): - 02/11/23 07:00 02/11/23 07:00 Temperature 97.7 F Pulse Rate 56 L Respiratory Rate 16 Blood Pressure 125/62 Pulse Oximetry 95 95 Oxygen Delivery Method Room Air Oxygen Delivery Method Room Air Oxygen Flow Rate 0 Narrative Exam Narrative: NAD, oriented to person, pleasant No leg edema Objective Labs 01/12/23 04:54 01/12/23 04:54 PFSH Medical History Cerebrovascular accident Chronic GERD Dementia Hyperlipidemia Hypertension Social History household members: children Smoking Status: Former smoker alcohol intake: current Assessment & Plan Assessment & Plan narrative: 1. Placement pending, under observation pending placement.? Has trtew-kv-oktbxltk. 2. Remote CVA and left hemiparesis, POAS (present on admission and stable). 3. CAD, POAS. Continue usual medications. 4. HTN, POAS. Continue usual medications. 5. Dementia, POAS. 6. Insomnia, new post admission and active.? Continue treatment with melatonin. Code status:? Do not resuscitate do not intubate DVT prophylaxis:? Enoxaparin 40 mg subQ daily Substitute decision maker:?Has a POA. Dispo: placement pending. Quality VTE Deep Vein Thrombosis/Pulmonary Embolism Present on Admission: No
[2023-02-11 19:00] VITALS: BP 127/60; PULSE 58; RESP 18; TEMP 36.6; O2SAT 97
[2023-02-11] MEDS: SERTRALINE 50 MG TABLET 100 MG PO (21:07)
[2023-02-11] MEDS: MELATONIN 3 MG TABLET 6 MG PO (21:23)
[2023-02-12] MEDS: LEVOTHYROXINE 125 MCG TABLET PO (05:58)
[2023-02-12] MEDS: HYDROCODONE/ACET 10/325 TABLET 1 TAB PO ×2 (06:02→18:41)
[2023-02-12 07:00] VITALS: BP 127/59; PULSE 52; RESP 16; TEMP 36.6; O2SAT 98
[2023-02-12] MEDS: DOCUSATE 100 MG CAPSULE PO ×2 (09:42→21:05)
[2023-02-12] MEDS: METOPROLOL IR 25 MG TABLET 12.5 MG PO ×2 (09:42→21:05)
[2023-02-12] MEDS: GABAPENTIN 100 MG CAPSULE PO ×2 (09:42→21:06)
--- NOTE | 2023-02-12 15:14 | PM.PN.1 ---
Subjective Subjective Interval history: 72-year-old gentleman with hypertension, hyperlipidemia, dementia, previous stroke with left-sided weakness, coronary artery disease status post stents, depression, and general debility who was admitted with an unsafe home environment.? He remains hospitalized as care management is working towards a safe disposition for him. No new complaints. Carried forward daily. Exam Vital Signs (past 8 hours): Oxygen Delivery Method Room Air Oxygen Flow Rate 0 Narrative Exam Narrative: NAD, oriented to person, pleasant No leg edema Objective Labs 01/12/23 04:54 01/12/23 04:54 PFSH Medical History Cerebrovascular accident Chronic GERD Dementia Hyperlipidemia Hypertension Social History household members: children Smoking Status: Former smoker alcohol intake: current Assessment & Plan Assessment & Plan narrative: 1. Placement pending, under observation pending placement.? Has bjhdl-kr-zkdhztnf. 2. Remote CVA and left hemiparesis, POAS (present on admission and stable). 3. CAD, POAS. Continue usual medications. 4. HTN, POAS. Continue usual medications. 5. Dementia, POAS. 6. Insomnia, new post admission and active.? Continue treatment with melatonin. 7. Gum pain, resolved Code status:? Do not resuscitate do not intubate DVT prophylaxis:? Enoxaparin 40 mg subQ daily Substitute decision maker:?Has a POA. Dispo: placement pending. Quality VTE Deep Vein Thrombosis/Pulmonary Embolism Present on Admission: No
[2023-02-12 19:00] VITALS: O2SAT 98
[2023-02-12 20:00] VITALS: BP 115/55; PULSE 60; RESP 18; TEMP 36.7; O2SAT 98
[2023-02-12] MEDS: SERTRALINE 50 MG TABLET 100 MG PO (21:04)
[2023-02-12] MEDS: diphenhydrAMINE 25 MG TABLET PO (21:05)
[2023-02-12] MEDS: MELATONIN 3 MG TABLET 6 MG PO (21:09)
[2023-02-13] MEDS: HYDROCODONE/ACET 10/325 TABLET 1 TAB PO ×3 (01:07→20:19)
[2023-02-13] MEDS: diphenhydrAMINE 25 MG TABLET PO ×2 (04:30→20:20)
[2023-02-13] MEDS: LEVOTHYROXINE 75 MCG TABLET 150 MCG PO (06:28)
[2023-02-13 07:50] VITALS: O2SAT 97
[2023-02-13 08:00] VITALS: BP 116/44; PULSE 69; RESP 17; TEMP 36.5; O2SAT 96
[2023-02-13] MEDS: METOPROLOL IR 25 MG TABLET 12.5 MG PO ×2 (09:19→20:20)
[2023-02-13] MEDS: CLOPIDOGREL 75 MG TABLET PO (09:19)
[2023-02-13] MEDS: GABAPENTIN 100 MG CAPSULE PO ×2 (09:20→20:20)
--- NOTE | 2023-02-13 14:09 | PM.PN.1 ---
Subjective Subjective Interval history: 72-year-old gentleman with hypertension, hyperlipidemia, dementia, previous stroke with left-sided weakness, coronary artery disease status post stents, depression, and general debility who was admitted with an unsafe home environment.? He remains hospitalized as care management is working towards a safe disposition for him. Nothing new. Awaiting placement. Exam Vital Signs (past 8 hours): - 02/13/23 08:00 02/13/23 07:50 02/13/23 07:50 Temperature 97.7 F Pulse Rate 69 Respiratory Rate 17 Blood Pressure 116/44 L Pulse Oximetry 96 97 Oxygen Delivery Method Room Air Room Air Oxygen Flow Rate 0 Oxygen Delivery Method Room Air Oxygen Flow Rate 0 Objective Labs 01/12/23 04:54 01/12/23 04:54 PFSH Medical History Cerebrovascular accident Chronic GERD Dementia Hyperlipidemia Hypertension Social History household members: children Smoking Status: Former smoker alcohol intake: current Assessment & Plan Assessment & Plan narrative: 1. Placement pending, under observation pending placement.? Has lbniy-ei-fctvjsfa. 2. Remote CVA and left hemiparesis, POAS (present on admission and stable). 3. CAD, POAS. Continue usual medications. 4. HTN, POAS. Continue usual medications. 5. Dementia, POAS. 6. Insomnia, new post admission and active.? Continue treatment with melatonin. 7. Gum pain, resolved Code status:? Do not resuscitate do not intubate DVT prophylaxis:? Enoxaparin 40 mg subQ daily Substitute decision maker:?Has a POA. Dispo: placement pending. Quality VTE Deep Vein Thrombosis/Pulmonary Embolism Present on Admission: No
[2023-02-13 17:23] VITALS: BP 135/63; PULSE 59; RESP 17; TEMP 36.2; O2SAT 98
[2023-02-13 19:00] VITALS: O2SAT 98
[2023-02-13] MEDS: SERTRALINE 50 MG TABLET 100 MG PO (20:19)
[2023-02-13] MEDS: DOCUSATE 100 MG CAPSULE PO (20:19)
[2023-02-13] MEDS: MELATONIN 3 MG TABLET 6 MG PO (20:21)
[2023-02-13 21:08] VITALS: BP 114/57; PULSE 59; RESP 16; TEMP 36.6; O2SAT 98
[2023-02-14] MEDS: LEVOTHYROXINE 75 MCG TABLET 150 MCG PO (06:22)
[2023-02-14] MEDS: HYDROCODONE/ACET 10/325 TABLET 1 TAB PO ×4 (06:23→21:58)
[2023-02-14 07:00] VITALS: BP 117/58; PULSE 51; RESP 17; TEMP 36.2; O2SAT 98
[2023-02-14 08:00] VITALS: O2SAT 96
[2023-02-14] MEDS: METOPROLOL IR 25 MG TABLET 12.5 MG PO ×2 (09:38→22:05)
[2023-02-14] MEDS: CLOPIDOGREL 75 MG TABLET PO (09:38)
[2023-02-14] MEDS: DOCUSATE 100 MG CAPSULE PO (09:38)
[2023-02-14] MEDS: GABAPENTIN 100 MG CAPSULE PO ×2 (09:38→21:59)
[2023-02-14] MEDS: polyethylene glycoL 3350 17 GM POWD.PACK PO (09:39)
--- NOTE | 2023-02-14 15:12 | PM.PN.1 ---
Subjective Subjective Date Patient Seen: 02/14/23 Interval history: 72-year-old gentleman with hypertension, hyperlipidemia, dementia, previous stroke with left-sided weakness, coronary artery disease status post stents, depression, and general debility who was admitted with an unsafe home environment.? He remains hospitalized as care management is working towards a safe disposition for him. Pt resting comfortably. Awaiting placement. Exam Vital Signs (past 8 hours): - 02/14/23 08:00 02/14/23 08:00 Pulse Oximetry 96 Oxygen Delivery Method Room Air Room Air Oxygen Delivery Method Room Air Oxygen Flow Rate 0 Objective Labs 01/12/23 04:54 01/12/23 04:54 PFSH Medical History Cerebrovascular accident Chronic GERD Dementia Hyperlipidemia Hypertension Social History household members: children Smoking Status: Former smoker alcohol intake: current Assessment & Plan Assessment & Plan narrative: 1. Placement pending, under observation pending placement.? Has [id number]-lkmocnve. 2. Remote CVA and left hemiparesis, POAS (present on admission and stable). 3. CAD, POAS. Continue usual medications. 4. HTN, POAS. Continue usual medications. 5. Dementia, POAS. 6. Insomnia, new post admission and active.? Continue treatment with melatonin. 7. Gum pain, resolved Code status:? Do not resuscitate do not intubate DVT prophylaxis:? Enoxaparin 40 mg subQ daily Substitute decision maker:?Has a POA. Dispo: placement pending. Quality VTE Deep Vein Thrombosis/Pulmonary Embolism Present on Admission: No
[2023-02-14 19:00] VITALS: O2SAT 99
[2023-02-14 19:35] VITALS: BP 135/66; PULSE 60; RESP 16; TEMP 36.6; O2SAT 99
[2023-02-14] MEDS: SERTRALINE 50 MG TABLET 100 MG PO (21:58)
[2023-02-14] MEDS: MELATONIN 3 MG TABLET 6 MG PO (21:58)
[2023-02-14] MEDS: diphenhydrAMINE 25 MG TABLET PO (21:59)
[2023-02-15] MEDS: HYDROCODONE/ACET 10/325 TABLET 1 TAB PO ×4 (06:27→21:31)
[2023-02-15] MEDS: LEVOTHYROXINE 75 MCG TABLET 150 MCG PO (06:27)
[2023-02-15 07:00] VITALS: O2SAT 98
--- NOTE | 2023-02-15 07:38 | P.PN_ITS ---
Subjective Subjective Date Patient Seen: 02/15/23 Interval history: He looks more frail. His alvarez is longer. He does not seem to recognize me. The 01/12 hemoglobin was 9.3 up from 8.4 in December. The BMP was normal. Exam Vital Signs (past 8 hours): Oxygen Delivery Method Room Air Oxygen Flow Rate 0 Narrative Exam Narrative: Unkempt appearance He appears somewhat wasted and thinner than I expected from my last interaction. Heart is regular rate and rythym without murmur. Pectus Excavatum. Lungs are clear to auscultation bilaterally There is no ankle edema Objective Labs 01/12/23 04:54 01/12/23 04:54 [facility] Medical History Cerebrovascular accident Chronic GERD Dementia Hyperlipidemia Hypertension Social History household members: children Smoking Status: Former smoker alcohol intake: current Assessment & Plan Assessment & Plan narrative: 1. Placement pending, under observation pending placement.? His guardianship hearing is scheduled in March. 2. Remote CVA and left hemiparesis, POAS (present on admission and stable). 3. CAD, POAS. Continue usual medications. 4. HTN, POAS. Continue usual medications. 5. Dementia, POAS. 6. Insomnia, new post admission and active.? Continue treatment with melatonin. 7. Gum pain, resolved Code status:? Do not resuscitate do not intubate DVT prophylaxis:? Enoxaparin 40 mg subQ daily Substitute decision maker:?Has a POA. Dispo: placement pending. Quality VTE Deep Vein Thrombosis/Pulmonary Embolism Present on Admission: No
[2023-02-15] MEDS: CLOPIDOGREL 75 MG TABLET PO (10:29)
[2023-02-15] MEDS: GABAPENTIN 100 MG CAPSULE PO ×2 (10:29→21:30)
[2023-02-15] MEDS: DOCUSATE 100 MG CAPSULE PO ×2 (10:29→21:31)
[2023-02-15] MEDS: METOPROLOL IR 25 MG TABLET 12.5 MG PO (10:29)
[2023-02-15 13:00] VITALS: BP 118/58; PULSE 57; RESP 16; TEMP 36.2; O2SAT 96
[2023-02-15 20:00] VITALS: BP 129/62; PULSE 51; RESP 16; TEMP 36.8; O2SAT 97
[2023-02-15] MEDS: MELATONIN 3 MG TABLET 6 MG PO (21:29)
[2023-02-15] MEDS: SERTRALINE 50 MG TABLET 100 MG PO (21:30)
[2023-02-16 07:00] VITALS: BP 134/65; PULSE 54; RESP 16; TEMP 36.6; O2SAT 98
[2023-02-16] MEDS: GABAPENTIN 100 MG CAPSULE PO ×2 (10:00→20:25)
[2023-02-16] MEDS: CLOPIDOGREL 75 MG TABLET PO (10:00)
[2023-02-16] MEDS: HYDROCODONE/ACET 10/325 TABLET 1 TAB PO ×2 (10:00→20:25)
[2023-02-16] MEDS: DOCUSATE 100 MG CAPSULE PO ×2 (10:00→20:24)
[2023-02-16] MEDS: METOPROLOL IR 25 MG TABLET 12.5 MG PO ×2 (10:01→20:25)
[2023-02-16] MEDS: polyethylene glycoL 3350 17 GM POWD.PACK PO (10:01)
[2023-02-16] MEDS: LEVOTHYROXINE 75 MCG TABLET 150 MCG PO (10:02)
--- NOTE | 2023-02-16 10:33 | PC.NURSE ---
Addendum entered by Jannette Soto R.N. 02/16/23 15:44: Patient is resting comfortably. Original Note: Patient is alert and oriented x2, he does have some confusion at times. Given vicodin for discomfort to his back. Patient is watching television and his behaviors are good this morning.
--- NOTE | 2023-02-16 14:12 | CM.DPC ---
Addendum entered by CHARITY Bradshaw 02/16/23 15:49: ADD: No response to the email yet sent to multiple [facility] staff, so called and left msgs for Dianne Galarza, acute hospital customer consultant with [facility] [phone], and also with Radha Schneider, financial institution treasurer with [facility] [phone] and requested call back or email response. BF Original Note: DCP Ongoing Guardianship SW attended virtual meeting this morning with Erlinda from [facility] legal team, Director Lb Gunderson and DNJessica Wilkins for weekly update from legal team and Erlinda confirmed that the phone screener approved the petition submitted requesting the APS records. Erlinda states that she submitted the request for records to [facility] on 02/13/23 and hopes to receive them this week. Erlinda also states that court visitor/GAL Breezy Reyes from [place] ([phone] [email or web address]) has been attempting to get pt's current [employer] financial records but was just denied by [employer] as pt's bank account is jointly held with his son Peter Cotter. [facility] submitted a new petition order to the phone screener requesting access to the jointly held accounts and now awaiting approval and then subsequent request to [employer]. Court Visitor Breezy states that he was able to contact pt's son Peter and gathered additional information regarding the sale of the [place] home proceeds amount and the distribution to which family members. Peter was agreeable with providing a year of [employer] statements to Breezy. Erlinda requested assist with [facility] to determine if: 1) Can [facility] accept a signed Affidavit from patient/family in regards to their information on the proceeds from the home sale and the distribution amount and to which family members it was distributed to in case the Court Visitor also cannot locate the information from [place] on the home sale? 2) And how many years of current financial bank records is needed?? Is a year of current bank records adequate? JEOVANY emailed Viv in the financial dept with [facility], Berta Minor/Dianne Galarza/Angela Cook all at [facility] to determine if they can provide the answers to the above questions. Hospitalist updated his date error on the Provider Professional Eval documentation and resent to Erlinda at [facility] and she confirmed that she received it. CHARITY Bradshaw
--- NOTE | 2023-02-16 14:21 | PM.PN.1 ---
Subjective Subjective Interval history: 72-year-old gentleman with hypertension, hyperlipidemia, dementia, previous stroke with left-sided weakness, coronary artery disease status post stents, depression, and general debility who was admitted with an unsafe home environment.? He remains hospitalized as care management is working towards a safe disposition for him. No new complaints. Carried forward daily. Exam Vital Signs (past 8 hours): - 02/16/23 07:00 02/16/23 10:16 Temperature 97.8 F Pulse Rate 54 L Respiratory Rate 16 Blood Pressure 134/65 Pulse Oximetry 98 Oxygen Delivery Method Room Air Oxygen Flow Rate 0 Oxygen Delivery Method Room Air Oxygen Flow Rate 0 Narrative Exam Narrative: NAD, oriented to person, pleasant No leg edema Objective Labs 01/12/23 04:54 01/12/23 04:54 PFSH Medical History Cerebrovascular accident Chronic GERD Dementia Hyperlipidemia Hypertension Social History household members: children Smoking Status: Former smoker alcohol intake: current Assessment & Plan Assessment & Plan narrative: 1. Placement pending, under observation pending placement.? His guardianship hearing is scheduled in March. 2. Remote CVA and left hemiparesis, POAS (present on admission and stable). 3. CAD, POAS. Continue usual medications. 4. HTN, POAS. Continue usual medications. 5. Dementia, POAS. 6. Insomnia, new post admission and active.? Continue treatment with melatonin. 7. Gum pain, resolved Code status:? Do not resuscitate do not intubate DVT prophylaxis:? Enoxaparin 40 mg subQ daily Substitute decision maker:?Has a POA. Dispo: placement pending. Quality VTE Deep Vein Thrombosis/Pulmonary Embolism Present on Admission: No
[2023-02-16 19:00] VITALS: O2SAT 98
[2023-02-16] MEDS: SERTRALINE 50 MG TABLET 100 MG PO (20:24)
[2023-02-16] MEDS: diphenhydrAMINE 25 MG TABLET PO (20:25)
[2023-02-16] MEDS: MELATONIN 3 MG TABLET 6 MG PO (20:25)
[2023-02-16] MEDS: hydrOXYzine pamoate 25 MG CAPSULE PO (20:26)
[2023-02-16 21:00] VITALS: BP 129/69; PULSE 61; RESP 16; TEMP 36.8; O2SAT 98
[2023-02-17] MEDS: HYDROCODONE/ACET 10/325 TABLET 1 TAB PO ×3 (05:40→22:13)
[2023-02-17] MEDS: LEVOTHYROXINE 75 MCG TABLET 150 MCG PO (05:40)
[2023-02-17] MEDS: diphenhydrAMINE 25 MG TABLET PO (05:40)
[2023-02-17 07:00] VITALS: BP 114/58; PULSE 56; RESP 17; TEMP 36.2; O2SAT 98
[2023-02-17] MEDS: DOCUSATE 100 MG CAPSULE PO ×2 (09:27→22:13)
[2023-02-17] MEDS: METOPROLOL IR 25 MG TABLET 12.5 MG PO ×2 (09:27→22:13)
[2023-02-17] MEDS: CLOPIDOGREL 75 MG TABLET PO (09:27)
[2023-02-17] MEDS: GABAPENTIN 100 MG CAPSULE PO ×2 (09:28→22:12)
--- NOTE | 2023-02-17 09:58 | PC.NURSE ---
Patient slept late this morning, he is eating his breakfast now and tolerating well. He refused his miralax.
--- NOTE | 2023-02-17 13:58 | PM.PN.1 ---
Subjective Subjective Interval history: 72-year-old gentleman with hypertension, hyperlipidemia, dementia, previous stroke with left-sided weakness, coronary artery disease status post stents, depression, and general debility who was admitted with an unsafe home environment.? He remains hospitalized as care management is working towards a safe disposition for him. No new complaints. Carried forward daily. Exam Vital Signs (past 8 hours): - 02/17/23 07:00 02/17/23 07:00 Temperature 97.1 F L Pulse Rate 56 L Respiratory Rate 17 Blood Pressure 114/58 L Pulse Oximetry 98 Oxygen Delivery Method Room Air Oxygen Flow Rate 0 Oxygen Delivery Method Room Air Oxygen Flow Rate 0 Narrative Exam Narrative: NAD, oriented to person, pleasant No leg edema Objective Labs 01/12/23 04:54 01/12/23 04:54 PFSH Medical History Cerebrovascular accident Chronic GERD Dementia Hyperlipidemia Hypertension Social History household members: children Smoking Status: Former smoker alcohol intake: current Assessment & Plan Assessment & Plan narrative: 1. Placement pending, under observation pending placement.? His guardianship hearing is scheduled in March. 2. Remote CVA and left hemiparesis, POAS (present on admission and stable). 3. CAD, POAS. Continue usual medications. 4. HTN, POAS. Continue usual medications. 5. Dementia, POAS. 6. Insomnia, new post admission and active.? Continue treatment with melatonin. 7. Gum pain, resolved Code status:? Do not resuscitate do not intubate DVT prophylaxis:? Enoxaparin 40 mg subQ daily Substitute decision maker:?Has a POA. Dispo: placement pending. Quality VTE Deep Vein Thrombosis/Pulmonary Embolism Present on Admission: No
[2023-02-17 19:00] VITALS: O2SAT 98
[2023-02-17 19:35] VITALS: BP 128/67; PULSE 66; RESP 16; TEMP 37.1; O2SAT 98
[2023-02-17] MEDS: MELATONIN 3 MG TABLET 6 MG PO (22:12)
[2023-02-17] MEDS: SERTRALINE 50 MG TABLET 100 MG PO (22:13)
[2023-02-18] MEDS: HYDROCODONE/ACET 10/325 TABLET 1 TAB PO ×5 (03:50→23:54)
[2023-02-18] MEDS: LEVOTHYROXINE 75 MCG TABLET 150 MCG PO (05:24)
[2023-02-18 07:00] VITALS: BP 112/58; PULSE 53; RESP 16; TEMP 36.6; O2SAT 99
[2023-02-18] MEDS: METOPROLOL IR 25 MG TABLET 12.5 MG PO ×2 (09:21→21:52)
[2023-02-18] MEDS: CLOPIDOGREL 75 MG TABLET PO (09:21)
[2023-02-18] MEDS: diphenhydrAMINE 25 MG TABLET PO ×3 (09:21→23:54)
[2023-02-18] MEDS: GABAPENTIN 100 MG CAPSULE PO ×2 (09:21→21:52)
[2023-02-18] MEDS: DOCUSATE 100 MG CAPSULE PO ×2 (09:21→21:52)
[2023-02-18] MEDS: polyethylene glycoL 3350 17 GM POWD.PACK PO (09:22)
--- NOTE | 2023-02-18 16:54 | PM.PN.1 ---
Subjective Subjective Interval history: 72-year-old gentleman with hypertension, hyperlipidemia, dementia, previous stroke with left-sided weakness, coronary artery disease status post stents, depression, and general debility who was admitted with an unsafe home environment.? He remains hospitalized as care management is working towards a safe disposition for him. Guardianship process is ensuing and the guardianship hearing is in March. Patient denies any new complaints. He expresses ongoing disappointment that his children do not come to visit him. He states he gets very good care here and he knows it will be hard to leave when a disposition is arranged. Exam Vital Signs (past 8 hours): Oxygen Delivery Method Room Air Oxygen Flow Rate 0 Narrative Exam Narrative: GEN: aged male,Alert and oriented x 3, NAD HEENT:NC, Face symmetric CHEST: Respiratory excursions symmetric, CTAB CV: RRR, no M/R/G ABD: Soft, NT/ND, BT present in all 4 quadrants, no organomegaly or masses EXTR: warm, well perfused, no C/C/E SKIN: warm and dry, no rash NEURO: Alert and oriented x 3, nonfocal Objective Labs 01/12/23 04:54 01/12/23 04:54 PFSH Medical History Cerebrovascular accident Chronic GERD Dementia Hyperlipidemia Hypertension Social History household members: children Smoking Status: Former smoker alcohol intake: current Assessment & Plan Assessment & Plan narrative: 1. Unstable discharge for a debilitated elderly male with multiple medical comorbidities Patient remains here under observation status while an appropriate disposition is identified.? He has no acute, decompensated medical issue, but is chronically weak and debilitated.? Care management is working diligently on appropriate? and safe discharge. guardianship in process. 2. History of stroke with left-sided weakness chronic, stable 3. Coronary artery disease Previous stenting.? No acute symptoms.? Continue home meds 4. Hypertension Remains normotensive.? Continue usual home meds. 5. Dementia slums assessment performed last month resulted in a 21/30, consistent with mild cognitive deficits. 6. Depression Continue Zoloft 7. Hypothyroidism On labs performed January 12 he hada TSH of 0.128. On January 24 it was up to 0.22. however, his T4 has been mid range at 1.06. Therefore, he does not have any clear evidence of his thyroid being over replaced. Code status DNR DNI Prophylaxis Continue Lovenox Disposition Unknown Quality VTE Deep Vein Thrombosis/Pulmonary Embolism Present on Admission: No
--- NOTE | 2023-02-18 18:09 | DIET.CONS2 ---
Dietary Inpatient Consultation Note Admission Date: 12/14/2022 15:06 Pt on LOS day 66 awaiting guardianship and placement. Pt eating well with no nutrition needs identified. Diet: 12/27/22 Lunch Easy to Chew/IDDSI7 Diet Diet Modifications: no dentures Nutrition Percent Meal Consumed 100% 02/18/23 10:24 Percent Meal Consumed 75% 02/17/23 18:40 Percent Meal Consumed 50% 02/17/23 17:00 Electronically Signed by: Judy Mukherjee 02/18/23 18:09 Clinical Dietitian [address] [id number]
[2023-02-18 19:00] VITALS: O2SAT 95
[2023-02-18 20:25] VITALS: BP 139/71; PULSE 70; RESP 16; TEMP 36.6; O2SAT 96
[2023-02-18] MEDS: MELATONIN 3 MG TABLET 6 MG PO (21:52)
[2023-02-18] MEDS: SERTRALINE 50 MG TABLET 100 MG PO (21:52)
[2023-02-18] MEDS: hydrOXYzine pamoate 25 MG CAPSULE PO (21:52)
[2023-02-19] MEDS: LEVOTHYROXINE 75 MCG TABLET 150 MCG PO (06:02)
[2023-02-19 07:00] VITALS: BP 108/62; PULSE 56; RESP 16; TEMP 36.9; O2SAT 95; O2SAT 98
[2023-02-19] MEDS: polyethylene glycoL 3350 17 GM POWD.PACK PO (10:37)
[2023-02-19] MEDS: HYDROCODONE/ACET 10/325 TABLET 1 TAB PO ×3 (10:37→21:16)
[2023-02-19] MEDS: diphenhydrAMINE 25 MG TABLET PO ×2 (10:38→21:15)
[2023-02-19] MEDS: DOCUSATE 100 MG CAPSULE PO ×2 (10:38→21:15)
[2023-02-19] MEDS: CLOPIDOGREL 75 MG TABLET PO (10:38)
[2023-02-19] MEDS: GABAPENTIN 100 MG CAPSULE PO ×2 (10:38→21:15)
[2023-02-19] MEDS: METOPROLOL IR 25 MG TABLET 12.5 MG PO ×2 (10:38→21:15)
--- NOTE | 2023-02-19 14:49 | PM.PN.1 ---
Subjective Subjective Interval history: 72-year-old gentleman with hypertension, hyperlipidemia, dementia, previous stroke with left-sided weakness, coronary artery disease status post stents, depression, and general debility who was admitted with an unsafe home environment.? He remains hospitalized as care management is working towards a safe disposition for him. No new complaints. Carried forward daily. Exam Vital Signs (past 8 hours): - 02/19/23 07:00 02/19/23 07:00 Temperature 98.5 F Pulse Rate 56 L Respiratory Rate 16 Blood Pressure 108/62 Pulse Oximetry 98 95 Oxygen Delivery Method Room Air Oxygen Flow Rate 0 0 Oxygen Delivery Method Room Air Oxygen Flow Rate 0 Narrative Exam Narrative: NAD, oriented to person, pleasant No leg edema Objective Labs 01/12/23 04:54 01/12/23 04:54 PFSH Medical History Cerebrovascular accident Chronic GERD Dementia Hyperlipidemia Hypertension Social History household members: children Smoking Status: Former smoker alcohol intake: current Assessment & Plan Assessment & Plan narrative: 1. Unstable discharge for a debilitated elderly male with multiple medical comorbidities Patient remains here under observation status while an appropriate disposition is identified.? He has no acute, decompensated medical issue, but is chronically weak and debilitated.? Care management is working diligently on appropriate? and safe discharge. guardianship in process. 2. History of stroke with left-sided weakness chronic, stable 3. Coronary artery disease Previous stenting.? No acute symptoms.? Continue home meds 4. Hypertension Remains normotensive.? Continue usual home meds. 5. Dementia slums assessment performed last month resulted in a 21/30, consistent with mild cognitive deficits. 6. Depression Continue Zoloft 7. Hypothyroidism On labs performed January 12 he hada TSH of 0.128. On January 24 it was up to 0.22. however, his T4 has been mid range at 1.06. Therefore, he does not have any clear evidence of his thyroid being over replaced. Code status DNR DNI Prophylaxis Continue Lovenox Disposition Unknown Quality VTE Deep Vein Thrombosis/Pulmonary Embolism Present on Admission: No
[2023-02-19 19:00] VITALS: O2SAT 96
[2023-02-19 20:10] VITALS: BP 110/58; PULSE 54; RESP 18; TEMP 36.6; O2SAT 98
[2023-02-19] MEDS: MELATONIN 3 MG TABLET 6 MG PO (21:16)
[2023-02-19] MEDS: SERTRALINE 50 MG TABLET 100 MG PO (21:16)
[2023-02-20] MEDS: LEVOTHYROXINE 75 MCG TABLET 150 MCG PO (05:44)
[2023-02-20] MEDS: HYDROCODONE/ACET 10/325 TABLET 1 TAB PO ×3 (05:44→21:12)
[2023-02-20 07:00] VITALS: RESP 18; O2SAT 97
[2023-02-20] MEDS: GABAPENTIN 100 MG CAPSULE PO ×2 (09:29→21:13)
[2023-02-20] MEDS: METOPROLOL IR 25 MG TABLET 12.5 MG PO ×2 (09:29→21:13)
[2023-02-20] MEDS: CLOPIDOGREL 75 MG TABLET PO (09:29)
[2023-02-20] MEDS: DOCUSATE 100 MG CAPSULE PO ×2 (09:29→21:13)
--- NOTE | 2023-02-20 14:15 | CM.DPNOTE ---
Placement Efforts Spoke with Berta Minor, [facility] Fee Clerk, asked her the following questions, as drafted by CHARITY Babb and by Erlinda with [facility]: -Whether in lieu of records they ([facility]) would be able to complete Mr. Cotter's Medicaid financial eligibility if Mr. Cotter signed a declaration (or affidavit) stating (1) how much in funds he received from the sale of his home and the date of the sale; and (2) how he spent those funds? - Re the $32,000 transfer of funds from patient to son Shane...ask [facility] what they ([facility]) would need as proof that the $32,000 transfer was made in consideration of care provided by Wander Cotter, as an exception to the uncompensated transfer rule? Berta refers this SALES PROGRAM COORDINATOR to Mayra Duong, Fee Clerk for financial worker Radha. Placed call to Mayra, had to LM Oncoming CM team members, check voice message left this afternoon on ext [phone] 02.20.23 from Mayra Duong. Unable to return call d/t caseload demands JW
--- NOTE | 2023-02-20 17:16 | PC.NURSE ---
Pt cooperative, refuses to get up, for meals, Med x 1 for discomfort w/relief. 'Condition remaoins essentially unchanged. Call light w/in reach, pt is able to make needs known. Continue w/plan of care.
[2023-02-20 18:10] VITALS: BP 127/58; PULSE 57; RESP 18; TEMP 36.2; O2SAT 100
[2023-02-20 19:00] VITALS: O2SAT 99
[2023-02-20 20:08] VITALS: BP 115/53; PULSE 56; RESP 16; TEMP 36.9; O2SAT 96
[2023-02-20] MEDS: SERTRALINE 50 MG TABLET 100 MG PO (21:12)
[2023-02-20] MEDS: MELATONIN 3 MG TABLET 6 MG PO (21:13)
[2023-02-20] MEDS: hydrOXYzine pamoate 25 MG CAPSULE PO (21:13)
[2023-02-20] MEDS: diphenhydrAMINE 25 MG TABLET PO (21:13)
[2023-02-21] MEDS: HYDROCODONE/ACET 10/325 TABLET 1 TAB PO ×2 (05:12→20:09)
[2023-02-21] MEDS: diphenhydrAMINE 25 MG TABLET PO ×2 (05:12→20:09)
[2023-02-21] MEDS: LEVOTHYROXINE 75 MCG TABLET 150 MCG PO (05:15)
[2023-02-21 07:00] VITALS: BP 145/69; PULSE 55; RESP 17; TEMP 36.7; O2SAT 96; O2SAT 99
[2023-02-21] MEDS: GABAPENTIN 100 MG CAPSULE PO ×2 (09:32→20:08)
[2023-02-21] MEDS: CLOPIDOGREL 75 MG TABLET PO (09:32)
[2023-02-21] MEDS: polyethylene glycoL 3350 17 GM POWD.PACK PO (09:34)
[2023-02-21] MEDS: DOCUSATE 100 MG CAPSULE PO ×2 (09:34→20:08)
[2023-02-21] MEDS: METOPROLOL IR 25 MG TABLET 12.5 MG PO ×2 (09:35→20:09)
--- NOTE | 2023-02-21 12:11 | PC.NURSE ---
1100: tolerated OOB to chair for a haircut. sat straight up and was conversant w/ navarro. allowed hair, alvarez and eyebrow trim. assisted back to bed. BA and call light on and in place.
[2023-02-21 19:00] VITALS: O2SAT 98
[2023-02-21 19:51] VITALS: BP 125/69; PULSE 64; RESP 18; TEMP 36.9; O2SAT 97
[2023-02-21] MEDS: SERTRALINE 50 MG TABLET 100 MG PO (20:08)
[2023-02-21] MEDS: hydrOXYzine pamoate 25 MG CAPSULE PO (20:08)
[2023-02-21] MEDS: MELATONIN 3 MG TABLET 6 MG PO (20:09)
[2023-02-22] MEDS: LEVOTHYROXINE 75 MCG TABLET 150 MCG PO (05:14)
[2023-02-22] MEDS: HYDROCODONE/ACET 10/325 TABLET 1 TAB PO (05:15)
[2023-02-22] MEDS: diphenhydrAMINE 25 MG TABLET PO (05:16)
[2023-02-22 08:00] VITALS: BP 147/73; PULSE 62; RESP 17; TEMP 36.6; O2SAT 96
--- NOTE | 2023-02-22 08:01 | PM.PN.1 ---
Subjective Subjective Interval history: 72-year-old gentleman with hypertension, hyperlipidemia, dementia, previous stroke with left-sided weakness, coronary artery disease status post stents, depression, and general debility who was admitted with an unsafe home environment.? He remains hospitalized as care management is working towards a safe disposition for him. No new complaints. Carried forward daily. Exam Vital Signs (past 8 hours): - 02/22/23 07:00 Oxygen Delivery Method Room Air Oxygen Delivery Method Room Air Oxygen Flow Rate 0 Narrative Exam Narrative: NAD, oriented to person, pleasant No leg edema Objective Labs 01/12/23 04:54 01/12/23 04:54 PFSH Medical History Cerebrovascular accident Chronic GERD Dementia Hyperlipidemia Hypertension Social History household members: children Smoking Status: Former smoker alcohol intake: current Assessment & Plan Assessment & Plan narrative: 1. Unstable discharge for a debilitated elderly male with multiple medical comorbidities Patient remains here under observation status while an appropriate disposition is identified.? He has no acute, decompensated medical issue, but is chronically weak and debilitated.? Care management is working diligently on appropriate? and safe discharge. guardianship in process. 2. History of stroke with left-sided weakness chronic, stable 3. Coronary artery disease Previous stenting.? No acute symptoms.? Continue home meds 4. Hypertension Remains normotensive.? Continue usual home meds. 5. Dementia slums assessment performed last month resulted in a 21/30, consistent with mild cognitive deficits. 6. Depression Continue Zoloft 7. Hypothyroidism On labs performed January 12 he hada TSH of 0.128. On January 24 it was up to 0.22. however, his T4 has been mid range at 1.06. Therefore, he does not have any clear evidence of his thyroid being over replaced. Code status DNR DNI Prophylaxis Continue Lovenox Disposition Unknown Quality VTE Deep Vein Thrombosis/Pulmonary Embolism Present on Admission: No
[2023-02-22] MEDS: polyethylene glycoL 3350 17 GM POWD.PACK PO (09:09)
[2023-02-22] MEDS: DOCUSATE 100 MG CAPSULE PO ×2 (09:09→20:00)
[2023-02-22] MEDS: CLOPIDOGREL 75 MG TABLET PO (09:09)
[2023-02-22] MEDS: METOPROLOL IR 25 MG TABLET 12.5 MG PO ×2 (09:10→20:00)
[2023-02-22] MEDS: GABAPENTIN 100 MG CAPSULE PO ×2 (09:11→20:00)
[2023-02-22 10:24] VITALS: O2SAT 98
[2023-02-22] MEDS: SERTRALINE 50 MG TABLET 100 MG PO (20:00)
[2023-02-22] MEDS: MELATONIN 3 MG TABLET 6 MG PO (20:01)
[2023-02-22 20:22] VITALS: BP 122/57; PULSE 59; RESP 18; TEMP 37.2; O2SAT 99
[2023-02-23 07:00] VITALS: RESP 18; O2SAT 97
[2023-02-23] MEDS: LEVOTHYROXINE 75 MCG TABLET 150 MCG PO (07:39)
[2023-02-23] MEDS: HYDROCODONE/ACET 10/325 TABLET 1 TAB PO ×3 (07:40→18:28)
[2023-02-23] MEDS: GABAPENTIN 100 MG CAPSULE PO ×2 (09:04→19:57)
[2023-02-23] MEDS: diphenhydrAMINE 25 MG TABLET PO ×2 (09:04→18:26)
[2023-02-23] MEDS: DOCUSATE 100 MG CAPSULE PO ×2 (09:04→19:57)
[2023-02-23] MEDS: polyethylene glycoL 3350 17 GM POWD.PACK PO (09:04)
[2023-02-23] MEDS: CLOPIDOGREL 75 MG TABLET PO (09:04)
[2023-02-23] MEDS: METOPROLOL IR 25 MG TABLET 12.5 MG PO ×2 (09:04→19:58)
--- NOTE | 2023-02-23 17:46 | PM.PN.1 ---
Subjective Subjective Date Patient Seen: 02/23/23 Time Patient Seen: 08:00 Interval history: No new complaints. Exam Vital Signs (past 8 hours): Oxygen Delivery Method Room Air Oxygen Flow Rate 0 Narrative Exam Narrative: no acute distress Objective Labs 01/12/23 04:54 01/12/23 04:54 [facility] Medical History Cerebrovascular accident Chronic GERD Dementia Hyperlipidemia Hypertension Social History household members: children Smoking Status: Former smoker alcohol intake: current Assessment & Plan Assessment & Plan narrative: 1. Unstable discharge for a debilitated elderly male with multiple medical comorbidities Patient remains here under observation status while an appropriate disposition is identified.? He has no acute, decompensated medical issue, but is chronically weak and debilitated.? Care management is working diligently on appropriate? and safe discharge. guardianship in process. 2. History of stroke with left-sided weakness chronic, stable 3. Coronary artery disease Previous stenting.? No acute symptoms.? Continue home meds 4. Hypertension Remains normotensive.? Continue usual home meds. 5. Dementia slums assessment performed last month resulted in a 21/30, consistent with mild cognitive deficits. 6. Depression Continue Zoloft 7. Hypothyroidism On labs performed January 12 he hada TSH of 0.128. On January 24 it was up to 0.22. however, his T4 has been mid range at 1.06. Therefore, he does not have any clear evidence of his thyroid being over replaced. Code status DNR DNI Prophylaxis Continue Lovenox Disposition Unknown Quality VTE Deep Vein Thrombosis/Pulmonary Embolism Present on Admission: No
[2023-02-23 19:35] VITALS: BP 103/68; PULSE 54; RESP 18; TEMP 36.4; O2SAT 99
[2023-02-23 19:40] VITALS: O2SAT 99
[2023-02-23] MEDS: SERTRALINE 50 MG TABLET 100 MG PO (19:58)
[2023-02-23] MEDS: MELATONIN 3 MG TABLET 6 MG PO (19:58)
[2023-02-24] MEDS: HYDROCODONE/ACET 10/325 TABLET 1 TAB PO ×5 (01:41→18:38)
[2023-02-24] MEDS: LEVOTHYROXINE 75 MCG TABLET 150 MCG PO (06:05)
[2023-02-24 07:00] VITALS: BP 123/53; PULSE 98; RESP 16; O2SAT 97
[2023-02-24] MEDS: GABAPENTIN 100 MG CAPSULE PO ×2 (09:44→20:17)
[2023-02-24] MEDS: CLOPIDOGREL 75 MG TABLET PO (09:44)
[2023-02-24] MEDS: diphenhydrAMINE 25 MG TABLET PO ×2 (09:44→18:38)
[2023-02-24] MEDS: polyethylene glycoL 3350 17 GM POWD.PACK PO (09:45)
[2023-02-24] MEDS: METOPROLOL IR 25 MG TABLET 12.5 MG PO ×2 (09:45→20:17)
[2023-02-24] MEDS: DOCUSATE 100 MG CAPSULE PO ×2 (09:46→20:17)
--- NOTE | 2023-02-24 10:46 | PC.NURSE ---
Ambulated pt into bathroom to shower- 1 assist with walker- feels more comfortable with two people assisting. Patient is sitting up in chair waiting for document advisor to come visit.
--- NOTE | 2023-02-24 15:03 | CM.DPC ---
Addendum entered by Jalyn Keen 03/02/23 13:55: DEPUTY COMMISSIONER and RN/Charity met with Mr. Cotter this AM. He asks what is it that we want? DEPUTY COMMISSIONER explained to patient that we were continuing to assist with his long-term placement. DEPUTY COMMISSIONER asked patient if he had preference in location of facility. Patient reports he would prefer to stay in the area but is agreeable to whatever can be found on his behalf. KJS Original Note: DCP Cont: SW attempted to contact [facility] Shell Core And Molding Supervisor Mayra Duong ([phone]) regarding the following questions: ? -Whether in lieu of records they ([facility]) would be able to complete Mr. Cotter's Medicaid financial eligibility if Mr. Cotter signed a declaration (or affidavit) stating (1) how much in funds he received from the sale of his home and the date of the sale; and (2) how he spent those funds? ? - Re the $32,000 transfer of funds from patient to [facility] Shane...ask [facility] what they ([facility]) would need as proof that the $32,000 transfer was made in consideration of care provided by Wander Cotter, as an exception to the uncompensated transfer rule? SW had to leave another VM for Mayra but Erlinda at [facility] willing to attempt to reach Mayra directly herself but also had to leave a vm as their phone system is down and should be back online tomorrow 02/25. SW received a voicemail last night from [facility] assigned registered nurse hh case manager Reanna Woody ([phone]) regarding patient?s Panel Machine Operator Care application (waiting to confirm if this is a new application submitted during his hospitalization or if she is following up on prior application?) SW attempted to call Reanna back and left her two voicemails inquiring about the application and the question from Erlinda at [facility] if pt has an assigned [facility]/Medicaid file number and requested a call back for more clarification. CHARITY Bradshaw
--- NOTE | 2023-02-24 15:39 | PM.PN.1 ---
Subjective Subjective Date Patient Seen: 02/24/23 Time Patient Seen: 08:00 Interval history: No new complaints. Exam Vital Signs (past 8 hours): Oxygen Delivery Method Room Air Oxygen Flow Rate 0 Narrative Exam Narrative: no acute distress Objective Labs 01/12/23 04:54 01/12/23 04:54 PFS Medical History Cerebrovascular accident Chronic GERD Dementia Hyperlipidemia Hypertension Social History household members: children Smoking Status: Former smoker alcohol intake: current Assessment & Plan Assessment & Plan narrative: 1. Unstable discharge for a debilitated elderly male with multiple medical comorbidities Patient remains here under observation status while an appropriate disposition is identified 2. History of stroke with left-sided weakness chronic, stable 3. Coronary artery disease Previous stenting.? No acute symptoms.? Continue home meds 4. Hypertension Remains normotensive.? Continue usual home meds. 5. Dementia slums assessment performed last month resulted in a 21/30, consistent with mild cognitive deficits. 6. Depression Continue Zoloft 7. Hypothyroidism On labs performed January 12 he hada TSH of 0.128. On January 24 it was up to 0.22. however, his T4 has been mid range at 1.06. Therefore, he does not have any clear evidence of his thyroid being over replaced. Code status DNR DNI Quality VTE Deep Vein Thrombosis/Pulmonary Embolism Present on Admission: No
[2023-02-24 19:00] VITALS: BP 141/66; PULSE 58; RESP 20; TEMP 36.3; O2SAT 99
[2023-02-24] MEDS: SERTRALINE 50 MG TABLET 100 MG PO (20:16)
[2023-02-24] MEDS: MELATONIN 3 MG TABLET 6 MG PO (20:17)
[2023-02-25] MEDS: HYDROCODONE/ACET 10/325 TABLET 1 TAB PO ×5 (00:04→18:41)
[2023-02-25] MEDS: diphenhydrAMINE 25 MG TABLET PO ×3 (00:08→14:30)
[2023-02-25] MEDS: LEVOTHYROXINE 75 MCG TABLET 150 MCG PO (05:54)
[2023-02-25 07:00] VITALS: BP 121/62; PULSE 52; RESP 17; TEMP 36.3; O2SAT 98
[2023-02-25 07:50] VITALS: O2SAT 97
[2023-02-25] MEDS: CLOPIDOGREL 75 MG TABLET PO (10:08)
[2023-02-25] MEDS: DOCUSATE 100 MG CAPSULE PO ×2 (10:08→21:45)
[2023-02-25] MEDS: GABAPENTIN 100 MG CAPSULE PO ×2 (10:08→21:44)
[2023-02-25] MEDS: polyethylene glycoL 3350 17 GM POWD.PACK PO (10:08)
[2023-02-25] MEDS: METOPROLOL IR 25 MG TABLET 12.5 MG PO ×2 (10:08→21:44)
--- NOTE | 2023-02-25 15:52 | PM.PN.1 ---
Subjective Subjective Interval history: No doing great, feels weak. Depressed. Exam Vital Signs (past 8 hours): Oxygen Delivery Method Room Air Oxygen Flow Rate 0 Narrative Exam Narrative: NAD, fluent speech. Anicteric sclera Lungs clear CV regular Abdomen soft and NT No leg edema. Objective Labs 01/12/23 04:54 01/12/23 04:54 [facility] Medical History Cerebrovascular accident Chronic GERD Dementia Hyperlipidemia Hypertension Social History household members: children Smoking Status: Former smoker alcohol intake: current Assessment & Plan Assessment & Plan narrative: 1. Unstable discharge for a debilitated elderly male with multiple medical comorbidities Patient remains here under observation status while an appropriate disposition is identified. Placement efforts ongoing. 2. History of stroke with left-sided weakness, POA and stable. ? chronic, stable 3. Coronary artery disease, POA and stable. Previous stenting.? No acute symptoms.? Continue home meds 4. Hypertension, POA and stable. Remains normotensive.? Continue usual home meds. 5. Dementia, POA and stable. ?slums assessment performed last month resulted in a 21/30, consistent with mild cognitive deficits. 6. Depression, POA and stable. Continue Zoloft 7. Hypothyroidism, POA and stable. Periodic TSH. Code status DNR DNI Time Spent With Patient Time with patient: less than 30 minutes Quality VTE Deep Vein Thrombosis/Pulmonary Embolism Present on Admission: No
[2023-02-25] MEDS: hydrOXYzine pamoate 25 MG CAPSULE PO (18:41)
[2023-02-25 19:00] VITALS: BP 117/54; PULSE 59; RESP 20; TEMP 37.1; O2SAT 98
[2023-02-25] MEDS: MELATONIN 3 MG TABLET 6 MG PO (21:45)
[2023-02-25] MEDS: SERTRALINE 50 MG TABLET 100 MG PO (21:45)
[2023-02-26] MEDS: diphenhydrAMINE 25 MG TABLET PO ×3 (06:24→21:16)
[2023-02-26] MEDS: HYDROCODONE/ACET 10/325 TABLET 1 TAB PO ×5 (06:24→22:43)
[2023-02-26] MEDS: LEVOTHYROXINE 75 MCG TABLET 150 MCG PO (06:24)
--- NOTE | 2023-02-26 08:15 | PM.PN.1 ---
Subjective Subjective Date Patient Seen: 02/26/23 Time Patient Seen: 08:00 Interval history: No new complaints. Feels depressed from being stuck in the hospital for over 70 days. Exam Vital Signs (past 8 hours): Oxygen Delivery Method Room Air Oxygen Flow Rate 0 Narrative Exam Narrative: NAD, fluent speech. Anicteric sclera Lungs clear CV regular Abdomen soft and NT No leg edema. Objective Labs 01/12/23 04:54 01/12/23 04:54 PFSH Medical History Cerebrovascular accident Chronic GERD Dementia Hyperlipidemia Hypertension Social History household members: children Smoking Status: Former smoker alcohol intake: current Assessment & Plan Assessment & Plan narrative: 1. Unstable discharge for a debilitated elderly male with multiple medical comorbidities Patient remains here under observation status while an appropriate disposition is identified. Placement efforts ongoing. 2. History of stroke with left-sided weakness, POA and stable. ? chronic, stable 3. Coronary artery disease, POA and stable. Previous stenting.? No acute symptoms.? Continue home meds 4. Hypertension, POA and stable. Remains normotensive.? Continue usual home meds. 5. Dementia, POA and stable. ?slums assessment performed last month resulted in a 21/30, consistent with mild cognitive deficits. 6. Depression, POA and stable. Continue Zoloft 7. Hypothyroidism, POA and stable. Periodic TSH. Code status DNR DNI Time Spent With Patient Time with patient: less than 30 minutes Quality VTE Deep Vein Thrombosis/Pulmonary Embolism Present on Admission: No
[2023-02-26] MEDS: GABAPENTIN 100 MG CAPSULE PO ×2 (09:03→21:13)
[2023-02-26] MEDS: DOCUSATE 100 MG CAPSULE PO ×2 (09:03→21:13)
[2023-02-26] MEDS: METOPROLOL IR 25 MG TABLET 12.5 MG PO (09:03)
[2023-02-26] MEDS: CLOPIDOGREL 75 MG TABLET PO (09:03)
[2023-02-26] MEDS: polyethylene glycoL 3350 17 GM POWD.PACK PO (09:03)
[2023-02-26 09:07] VITALS: RESP 18
[2023-02-26 19:43] VITALS: BP 122/63; PULSE 61; RESP 17; TEMP 36.6; O2SAT 98
[2023-02-26] MEDS: SERTRALINE 50 MG TABLET 100 MG PO (21:13)
[2023-02-26] MEDS: MELATONIN 3 MG TABLET 6 MG PO (21:13)
[2023-02-27] MEDS: diphenhydrAMINE 25 MG TABLET PO ×3 (04:30→20:45)
[2023-02-27] MEDS: HYDROCODONE/ACET 10/325 TABLET 1 TAB PO ×4 (04:31→20:21)
[2023-02-27] MEDS: LEVOTHYROXINE 75 MCG TABLET 150 MCG PO (05:44)
--- NOTE | 2023-02-27 07:34 | PM.PN.1 ---
Subjective Subjective Date Patient Seen: 02/26/23 Time Patient Seen: 08:00 Interval history: No new complaints. Exam Vital Signs (past 8 hours): Oxygen Delivery Method Room Air Oxygen Flow Rate 0 Narrative Exam Narrative: NAD, fluent speech. Anicteric sclera Lungs clear CV regular Abdomen soft and NT No leg edema. Objective Labs 01/12/23 04:54 01/12/23 04:54 PFSH Medical History Cerebrovascular accident Chronic GERD Dementia Hyperlipidemia Hypertension Social History household members: children Smoking Status: Former smoker alcohol intake: current Assessment & Plan Assessment & Plan narrative: 1. Unstable discharge for a debilitated elderly male with multiple medical comorbidities Patient remains here under observation status while an appropriate disposition is identified. Placement efforts ongoing. 2. History of stroke with left-sided weakness, POA and stable. ? chronic, stable 3. Coronary artery disease, POA and stable. Previous stenting.? No acute symptoms.? Continue home meds 4. Hypertension, POA and stable. Remains normotensive.? Continue usual home meds. 5. Dementia, POA and stable. ?slums assessment performed last month resulted in a 21/30, consistent with mild cognitive deficits. 6. Depression, POA and stable. Continue Zoloft 7. Hypothyroidism, POA and stable. Periodic TSH. Code status DNR DNI Time Spent With Patient Time with patient: less than 30 minutes Quality VTE Deep Vein Thrombosis/Pulmonary Embolism Present on Admission: No
[2023-02-27] MEDS: DOCUSATE 100 MG CAPSULE PO ×2 (08:47→20:21)
[2023-02-27] MEDS: GABAPENTIN 100 MG CAPSULE PO ×2 (08:47→20:21)
[2023-02-27] MEDS: METOPROLOL IR 25 MG TABLET 12.5 MG PO ×2 (08:47→20:21)
[2023-02-27] MEDS: CLOPIDOGREL 75 MG TABLET PO (08:47)
[2023-02-27] MEDS: polyethylene glycoL 3350 17 GM POWD.PACK PO (08:47)
[2023-02-27] MEDS: SERTRALINE 50 MG TABLET 100 MG PO (20:21)
[2023-02-27] MEDS: MELATONIN 3 MG TABLET 6 MG PO (20:21)
[2023-02-28 00:20] VITALS: BP 125/51; PULSE 60; RESP 18; TEMP 36.9; O2SAT 94
[2023-02-28] MEDS: HYDROCODONE/ACET 10/325 TABLET 1 TAB PO ×4 (01:30→21:19)
[2023-02-28] MEDS: diphenhydrAMINE 25 MG TABLET PO ×3 (02:42→21:20)
[2023-02-28] MEDS: LEVOTHYROXINE 75 MCG TABLET 150 MCG PO (06:59)
[2023-02-28] MEDS: CLOPIDOGREL 75 MG TABLET PO (09:26)
[2023-02-28] MEDS: DOCUSATE 100 MG CAPSULE PO ×2 (09:26→21:19)
[2023-02-28] MEDS: METOPROLOL IR 25 MG TABLET 12.5 MG PO ×2 (09:26→21:20)
[2023-02-28] MEDS: GABAPENTIN 100 MG CAPSULE PO ×2 (09:26→21:20)
[2023-02-28] MEDS: polyethylene glycoL 3350 17 GM POWD.PACK PO (09:26)
[2023-02-28 13:08] VITALS: BP 121/64; PULSE 53; RESP 16; TEMP 36; O2SAT 97
--- NOTE | 2023-02-28 15:02 | PM.PN.1 ---
Subjective Subjective Date Patient Seen: 02/28/23 Time Patient Seen: 08:00 Interval history: No new complaints Exam Vital Signs (past 8 hours): - 02/28/23 13:08 Temperature 96.8 F L Pulse Rate 53 L Respiratory Rate 16 Blood Pressure 121/64 Pulse Oximetry 97 Oxygen Flow Rate 0 Oxygen Delivery Method Room Air Oxygen Flow Rate 0 Narrative Exam Narrative: GEN: no acute distress Objective Labs 01/12/23 04:54 01/12/23 04:54 PFSH Medical History Cerebrovascular accident Chronic GERD Dementia Hyperlipidemia Hypertension Social History household members: children Smoking Status: Former smoker alcohol intake: current Assessment & Plan Assessment & Plan narrative: 1. Unstable discharge for a debilitated elderly male with multiple medical comorbidities Patient remains here under observation status while an appropriate disposition is identified. Placement efforts ongoing. 2. History of stroke with left-sided weakness, POA and stable. ? chronic, stable 3. Coronary artery disease, POA and stable. Previous stenting.? No acute symptoms.? Continue home meds 4. Hypertension, POA and stable. Remains normotensive.? Continue usual home meds. 5. Dementia, POA and stable. ?slums assessment performed last month resulted in a 21/30, consistent with mild cognitive deficits. 6. Depression, POA and stable. Continue Zoloft 7. Hypothyroidism, POA and stable. Periodic TSH. Code status DNR DNI Time Spent With Patient Time with patient: less than 30 minutes Quality VTE Deep Vein Thrombosis/Pulmonary Embolism Present on Admission: No
[2023-02-28 20:44] VITALS: BP 119/59; PULSE 59; RESP 18; TEMP 36.6; O2SAT 98
[2023-02-28] MEDS: SERTRALINE 50 MG TABLET 100 MG PO (21:19)
[2023-02-28] MEDS: MELATONIN 3 MG TABLET 6 MG PO (21:20)
[2023-02-28] MEDS: hydrOXYzine pamoate 25 MG CAPSULE PO (21:20)
[2023-03-01] MEDS: HYDROCODONE/ACET 10/325 TABLET 1 TAB PO ×4 (02:56→20:35)
[2023-03-01] MEDS: LEVOTHYROXINE 75 MCG TABLET 150 MCG PO (07:50)
[2023-03-01] MEDS: METOPROLOL IR 25 MG TABLET 12.5 MG PO ×2 (09:53→20:35)
[2023-03-01] MEDS: GABAPENTIN 100 MG CAPSULE PO ×2 (09:53→20:34)
[2023-03-01] MEDS: DOCUSATE 100 MG CAPSULE PO ×2 (09:53→20:35)
[2023-03-01] MEDS: CLOPIDOGREL 75 MG TABLET PO (09:53)
[2023-03-01] MEDS: diphenhydrAMINE 25 MG TABLET PO ×2 (09:53→20:34)
[2023-03-01] MEDS: polyethylene glycoL 3350 17 GM POWD.PACK PO (09:53)
--- NOTE | 2023-03-01 12:54 | PM.PN.1 ---
Subjective Subjective Date Patient Seen: 03/01/23 Time Patient Seen: 08:00 Interval history: No new complaints Exam Vital Signs (past 8 hours): Oxygen Delivery Method Room Air Oxygen Flow Rate 0 Narrative Exam Narrative: GEN: no acute distress Objective Labs 01/12/23 04:54 01/12/23 04:54 PFSH Medical History Cerebrovascular accident Chronic GERD Dementia Hyperlipidemia Hypertension Social History household members: children Smoking Status: Former smoker alcohol intake: current Assessment & Plan Assessment & Plan narrative: 1. Unstable discharge for a debilitated elderly male with multiple medical comorbidities Patient remains here under observation status while an appropriate disposition is identified. Placement efforts ongoing. 2. History of stroke with left-sided weakness, POA and stable. ? chronic, stable 3. Coronary artery disease, POA and stable. Previous stenting.? No acute symptoms.? Continue home meds 4. Hypertension, POA and stable. Remains normotensive.? Continue usual home meds. 5. Dementia, POA and stable. ?slums assessment performed last month resulted in a 21/30, consistent with mild cognitive deficits. 6. Depression, POA and stable. Continue Zoloft 7. Hypothyroidism, POA and stable. Periodic TSH. Code status DNR DNI Time Spent With Patient Time with patient: less than 30 minutes Quality VTE Deep Vein Thrombosis/Pulmonary Embolism Present on Admission: No
[2023-03-01 14:04] VITALS: RESP 18
[2023-03-01 15:17] VITALS: BP 110/60; PULSE 54; RESP 18; TEMP 36.8; O2SAT 96
[2023-03-01 20:32] VITALS: BP 115/57; PULSE 55; RESP 16; TEMP 37; O2SAT 98
[2023-03-01] MEDS: MELATONIN 3 MG TABLET 6 MG PO (20:34)
[2023-03-01] MEDS: SERTRALINE 50 MG TABLET 100 MG PO (20:35)
[2023-03-02] MEDS: HYDROCODONE/ACET 10/325 TABLET 1 TAB PO ×4 (00:35→19:50)
[2023-03-02] MEDS: diphenhydrAMINE 25 MG TABLET PO ×2 (02:39→09:19)
[2023-03-02] MEDS: LEVOTHYROXINE 75 MCG TABLET 150 MCG PO (06:18)
[2023-03-02 07:00] VITALS: BP 128/67; PULSE 59; RESP 16; TEMP 36.1; O2SAT 98
[2023-03-02] MEDS: METOPROLOL IR 25 MG TABLET 12.5 MG PO ×2 (09:19→19:50)
[2023-03-02] MEDS: polyethylene glycoL 3350 17 GM POWD.PACK PO (09:19)
[2023-03-02] MEDS: CLOPIDOGREL 75 MG TABLET PO (09:19)
[2023-03-02] MEDS: GABAPENTIN 100 MG CAPSULE PO ×2 (09:20→19:50)
[2023-03-02] MEDS: DOCUSATE 100 MG CAPSULE PO (09:20)
--- NOTE | 2023-03-02 13:50 | CM.DPC ---
DCP Cont: JEOVANY attended virtual meeting this morning with Erlinda from [facility] legal team, CM Director Jalyn, Lb Hermosillo and DNS Claudette and SENIOR ESCROW OFFICER Jeanie for weekly update from legal team and Erlinda confirmed that Court Visitor Breezy should be receiving all bank records this week as the submitted subpoena to include records that pt holds jointly with son Shane was approved by the housing court judge. Per Breezy, pt was able to provide him with the information of what bank he used in [place] and the amount of $79,000 for the sale of the [place] home and where the proceeds were distributed to. Erlinda from [facility] plans to submit another subpoena to gain access to pt's [place] bank, title and escrow information from [place] but will take longer since out of state records. CM Director Jalyn left a message with assigned business risk analyst Reanna Bong with [employer] ph# [phone] inquiring about who submitted most recent Medicaid application on Mr. Cotter?s behalf and also Jalyn called and left message with Mayra Duong the [facility] financial investment adviser ph# [phone] regarding the ongoing questions from Erlinda at [facility]. JEOVANY also left msg for Reanna Woody today as well as called Mayra Duong and left detailed msg requesting call back yosvany from both. CHARITY Bradshaw
--- NOTE | 2023-03-02 17:45 | PM.PN.1 ---
Subjective Subjective Date Patient Seen: 03/02/23 Time Patient Seen: 08:00 Interval history: No new concerns Exam Vital Signs (past 8 hours): Oxygen Delivery Method Room Air Oxygen Flow Rate 0 Narrative Exam Narrative: GEN: no acute distress Objective Labs 01/12/23 04:54 01/12/23 04:54 PFSH Medical History Cerebrovascular accident Chronic GERD Dementia Hyperlipidemia Hypertension Social History household members: children Smoking Status: Former smoker alcohol intake: current Assessment & Plan Assessment & Plan narrative: 1. Unstable discharge for a debilitated elderly male with multiple medical comorbidities Patient remains here under observation status while an appropriate disposition is identified. Placement efforts ongoing. 2. History of stroke with left-sided weakness, POA and stable. ? chronic, stable 3. Coronary artery disease, POA and stable. Previous stenting.? No acute symptoms.? Continue home meds 4. Hypertension, POA and stable. Remains normotensive.? Continue usual home meds. 5. Dementia, POA and stable. ?slums assessment performed last month resulted in a 21/30, consistent with mild cognitive deficits. 6. Depression, POA and stable. Continue Zoloft 7. Hypothyroidism, POA and stable. Periodic TSH. Code status DNR DNI Time Spent With Patient Time with patient: less than 30 minutes Quality VTE Deep Vein Thrombosis/Pulmonary Embolism Present on Admission: No
--- NOTE | 2023-03-02 18:18 | PC.NURSE ---
Day shift: While cleaning up patient, noted small area of redness on L buttock with a small scratch-like open area. Approximately 1/4 in long and very thin. No bleeding. Put barrier cream on buttocks. Scratch noted in skin assessment already. Will continue to monitor. Pt denies pain in that area. Encouraged patient to turn and get up to the chair - patient refused x 3 today. Waffle cushion under bottom. Will continue to monitor.
[2023-03-02 19:00] VITALS: BP 117/57; PULSE 59; RESP 16; TEMP 36.5; O2SAT 100
[2023-03-02] MEDS: SERTRALINE 50 MG TABLET 100 MG PO (19:49)
[2023-03-02] MEDS: hydrOXYzine pamoate 25 MG CAPSULE PO (19:50)
[2023-03-02] MEDS: MELATONIN 3 MG TABLET 6 MG PO (19:50)
[2023-03-03] MEDS: LEVOTHYROXINE 75 MCG TABLET 150 MCG PO (06:48)
[2023-03-03 07:00] VITALS: BP 120/64; PULSE 53; RESP 20; TEMP 36.5; O2SAT 98
[2023-03-03] MEDS: DOCUSATE 100 MG CAPSULE PO ×2 (08:29→20:20)
[2023-03-03] MEDS: CLOPIDOGREL 75 MG TABLET PO (08:29)
[2023-03-03] MEDS: GABAPENTIN 100 MG CAPSULE PO ×2 (08:30→20:20)
--- NOTE | 2023-03-03 12:29 | PM.PN.1 ---
Subjective Subjective Interval history: No new concerns Exam Vital Signs (past 8 hours): - 03/03/23 07:00 Temperature 97.7 F Pulse Rate 53 L Respiratory Rate 20 Blood Pressure 120/64 Pulse Oximetry 98 Oxygen Delivery Method Room Air Oxygen Flow Rate 0 Narrative Exam Narrative: GEN: no acute distress Objective Labs 01/12/23 04:54 01/12/23 04:54 PFSH Medical History Cerebrovascular accident Chronic GERD Dementia Hyperlipidemia Hypertension Social History household members: children Smoking Status: Former smoker alcohol intake: current Assessment & Plan Assessment & Plan narrative: 1. Unstable discharge for a debilitated elderly male with multiple medical comorbidities Patient remains here under observation status while an appropriate disposition is identified. Placement efforts ongoing. 2. History of stroke with left-sided weakness, POA and stable. ? chronic, stable 3. Coronary artery disease, POA and stable. Previous stenting.? No acute symptoms.? Continue home meds 4. Hypertension, POA and stable. Remains normotensive.? Continue usual home meds. 5. Dementia, POA and stable. ?slums assessment performed last month resulted in a 21/30, consistent with mild cognitive deficits. 6. Depression, POA and stable. Continue Zoloft 7. Hypothyroidism, POA and stable. Periodic TSH. Code status DNR DNI Time Spent With Patient Time with patient: less than 30 minutes Quality VTE Deep Vein Thrombosis/Pulmonary Embolism Present on Admission: No
--- NOTE | 2023-03-03 13:39 | CM.DPC ---
DCP Cont: SW received a return call from Reanna Woody at [facility] ([phone]) and she clarified that pt currently does not have a new Medicaid application submitted. Reanna is the new assigned shelter case manager since pt has remained in the hospital setting and continues to need Custodial Placement from the Hospital and Reanna is in the Acute Hospital department of [facility]. Reanna states that she spoke to Leanne Tijerinaor, directly and informed him that he will need to submit a new Medicaid Custodial Care application once he receives the bank/financial information and then Reanna will do a bedside assessment to qualify patient for Medicaid care needs. The next step is the application needs to be approved by [facility] [employer]. (This is where pt?s prior Medicaid applications have been denied due to lack of documentation on the sale of his [place] home and assets from family members). Reanna will continue to be involved and will inform us of the newly assigned [employer] once Medicaid Charge Nurse Care application is submitted by Leanne Tijerina. JEOVANY requested Erlinda from [facility] to contact Leanne Tijerinaor, later this week to request that he submit that Medicaid application on behalf of the patient yosvany once he has the financial documentation from the bank this week. JEOVANY still waiting to speak directly to Mayra Duong, [employer] Quality Assurance Analyst from [facility], to determine if pt?s Medicaid application can be approved if the pt?s gifting of the $20 some thousand dollars to his son is not able to be accounted for. CHARITY Bradshaw
--- NOTE | 2023-03-03 18:39 | PC.NURSE ---
Pt A&Ox4, VSS, on RA. He is bradycardic this a.m. HR 53 metoprolol held. He declined miralax and lovenox injection. He does not request pain medication this shift, and takes a few long naps throughout the day. He has good po intake. He declined multiple offers to sit up in the chair or have assistance to shower. He did agree to a linen change and bed bath this evening. Continuous monitoring.
[2023-03-03 19:59] VITALS: BP 142/71; PULSE 67; RESP 18; TEMP 36.8; O2SAT 97
[2023-03-03] MEDS: MELATONIN 3 MG TABLET 6 MG PO (20:21)
[2023-03-03] MEDS: HYDROCODONE/ACET 10/325 TABLET 1 TAB PO (20:21)
[2023-03-03] MEDS: SERTRALINE 50 MG TABLET 100 MG PO (20:21)
[2023-03-03] MEDS: METOPROLOL IR 25 MG TABLET 12.5 MG PO (20:21)
--- NOTE | 2023-03-03 23:15 | PC.NURSE ---
Patient is alert and oriented except did not know day of month. Becomes teary intemittently when discussing care provided by staff and/or impending discharge once legal issues resolved. Breath sounds CTA with RA sat of 97%. HRR w/BP of 142/71. Denies nausea. BT present and is passing flatus; reports he had a BM yesterday. Denies dysuria with urination and is using urinal in bed. Is able to turn himself and reportedly gets up to sit in chair daily using walker and 1 assist. Complained of chronic back pain and was medicated with vicodin earlier but verbalizes minimal improvement although FLACC score is 0. Fall risk score is high and bed alarm is activated.
[2023-03-04] MEDS: LEVOTHYROXINE 75 MCG TABLET 150 MCG PO (05:39)
[2023-03-04 07:00] VITALS: BP 140/73; PULSE 57; RESP 16; TEMP 36.1; O2SAT 95
[2023-03-04] MEDS: HYDROCODONE/ACET 10/325 TABLET 1 TAB PO ×4 (08:05→20:07)
[2023-03-04] MEDS: METOPROLOL IR 25 MG TABLET 12.5 MG PO ×2 (09:18→20:06)
[2023-03-04] MEDS: GABAPENTIN 100 MG CAPSULE PO ×2 (09:18→20:07)
[2023-03-04] MEDS: CLOPIDOGREL 75 MG TABLET PO (09:19)
[2023-03-04] MEDS: DOCUSATE 100 MG CAPSULE PO ×2 (09:19→20:07)
--- NOTE | 2023-03-04 09:55 | PM.PN.1 ---
Subjective Subjective Interval history: No new concerns Exam Vital Signs (past 8 hours): - 03/04/23 07:00 Temperature 97 F L Pulse Rate 57 L Respiratory Rate 16 Blood Pressure 140/73 Pulse Oximetry 95 Oxygen Delivery Method Room Air Oxygen Flow Rate 0 Narrative Exam Narrative: GEN: no acute distress Objective Labs 01/12/23 04:54 01/12/23 04:54 PFSH Medical History Cerebrovascular accident Chronic GERD Dementia Hyperlipidemia Hypertension Social History household members: children Smoking Status: Former smoker alcohol intake: current Assessment & Plan Assessment & Plan narrative: 1. Unstable discharge for a debilitated elderly male with multiple medical comorbidities Patient remains here under observation status while an appropriate disposition is identified. Placement efforts ongoing. 2. History of stroke with left-sided weakness, POA and stable. ? chronic, stable 3. Coronary artery disease, POA and stable. Previous stenting.? No acute symptoms.? Continue home meds 4. Hypertension, POA and stable. Remains normotensive.? Continue usual home meds. 5. Dementia, POA and stable. ?slums assessment performed last month resulted in a 21/30, consistent with mild cognitive deficits. 6. Depression, POA and stable. Continue Zoloft 7. Hypothyroidism, POA and stable. Periodic TSH. Code status DNR DNI Time Spent With Patient Time with patient: less than 30 minutes Quality VTE Deep Vein Thrombosis/Pulmonary Embolism Present on Admission: No
--- NOTE | 2023-03-04 11:43 | PC.NURSE ---
Day Shift: Discussed with Dr. Fox that pt reports not sleeping well throughout the night, pt currently taking 6 mg Melatonin at night, Dr stated that he will address the issue.
[2023-03-04] MEDS: diphenhydrAMINE 25 MG TABLET PO ×2 (13:11→20:07)
[2023-03-04 19:00] VITALS: BP 114/70; PULSE 62; RESP 18; TEMP 36.6; O2SAT 96
[2023-03-04] MEDS: SERTRALINE 50 MG TABLET 100 MG PO (20:06)
[2023-03-04] MEDS: MELATONIN 3 MG TABLET 6 MG PO (20:07)
[2023-03-04] MEDS: hydrOXYzine pamoate 25 MG CAPSULE PO (22:10)
[2023-03-05] MEDS: TEMAZEPAM 15 MG CAPSULE PO ×2 (00:20→02:38)
--- NOTE | 2023-03-05 02:40 | PC.NURSE ---
obiee report developer Patient was asleep and woke up disorientated and had a hallucination of a man in the corner of the room, RN reorientated Patient to person, place and time, and situation. RN turned on lights and redirected patient, Patient no longer visualized any other personal in room. Patient requested another sleeping pill. Given Per SEP. Door left open per patient's request.
[2023-03-05 07:00] VITALS: BP 124/62; PULSE 57; RESP 17; TEMP 36.7; O2SAT 98
[2023-03-05] MEDS: METOPROLOL IR 25 MG TABLET 12.5 MG PO (09:52)
[2023-03-05] MEDS: DOCUSATE 100 MG CAPSULE PO ×2 (09:53→21:04)
[2023-03-05] MEDS: HYDROCODONE/ACET 10/325 TABLET 1 TAB PO ×2 (09:53→17:18)
[2023-03-05] MEDS: GABAPENTIN 100 MG CAPSULE PO ×2 (09:53→21:04)
[2023-03-05] MEDS: CLOPIDOGREL 75 MG TABLET PO (09:53)
[2023-03-05] MEDS: LEVOTHYROXINE 75 MCG TABLET 150 MCG PO (09:54)
[2023-03-05] MEDS: diphenhydrAMINE 25 MG TABLET PO (09:54)
--- NOTE | 2023-03-05 10:50 | PM.PN.1 ---
Subjective Subjective Interval history: No new concerns Exam Vital Signs (past 8 hours): - 03/05/23 07:00 Temperature 98.0 F Pulse Rate 57 L Respiratory Rate 17 Blood Pressure 124/62 Pulse Oximetry 98 Oxygen Delivery Method Room Air Oxygen Flow Rate 0 Narrative Exam Narrative: GEN: no acute distress Objective Labs 01/12/23 04:54 01/12/23 04:54 PFSH Medical History Cerebrovascular accident Chronic GERD Dementia Hyperlipidemia Hypertension Social History household members: children Smoking Status: Former smoker alcohol intake: current Assessment & Plan Assessment & Plan narrative: 1. Unstable discharge for a debilitated elderly male with multiple medical comorbidities Patient remains here under observation status while an appropriate disposition is identified. Placement efforts ongoing. 2. History of stroke with left-sided weakness, POA and stable. ? chronic, stable 3. Coronary artery disease, POA and stable. Previous stenting.? No acute symptoms.? Continue home meds 4. Hypertension, POA and stable. Remains normotensive.? Continue usual home meds. 5. Dementia, POA and stable. ?slums assessment performed last month resulted in a 21/30, consistent with mild cognitive deficits. 6. Depression, POA and stable. Continue Zoloft 7. Hypothyroidism, POA and stable. Periodic TSH. Code status DNR DNI Time Spent With Patient Time with patient: less than 30 minutes Quality VTE Deep Vein Thrombosis/Pulmonary Embolism Present on Admission: No
[2023-03-05] MEDS: SERTRALINE 50 MG TABLET 100 MG PO (21:04)
[2023-03-05] MEDS: MELATONIN 3 MG TABLET 6 MG PO (21:04)
[2023-03-05 21:05] VITALS: BP 121/62; PULSE 56; RESP 18; TEMP 36.5; O2SAT 99
[2023-03-06] MEDS: LEVOTHYROXINE 75 MCG TABLET 150 MCG PO (06:24)
--- NOTE | 2023-03-06 07:39 | P.PN_ITS ---
Subjective Subjective Interval history: No new complaints. Note copied forward daily. Exam Vital Signs (past 8 hours): Oxygen Delivery Method Room Air Oxygen Flow Rate 0 Narrative Exam Narrative: GEN: no acute distress Objective Labs 01/12/23 04:54 01/12/23 04:54 PFSH Medical History Cerebrovascular accident Chronic GERD Dementia Hyperlipidemia Hypertension Social History household members: children Smoking Status: Former smoker alcohol intake: current Assessment & Plan Assessment & Plan narrative: 1. Unstable discharge for a debilitated elderly male with multiple medical com orbidities Patient remains here under observation status while an appropriate disposition is identified. Placement efforts ongoing. 2. History of stroke with left-sided weakness, POA and stable. ? chronic, stable 3. Coronary artery disease, POA and stable. Previous stenting.? No acute symptoms.? Continue home meds 4. Hypertension, POA and stable. Remains normotensive.? Continue usual home meds. 5. Dementia, POA and stable. ?slums assessment performed last month resulted in a 21/30, consistent with mild cognitive deficits. 6. Depression, POA and stable. Continue Zoloft 7. Hypothyroidism, POA and stable. Last TSH 0.22 on 01/24. Recheck TSH and may lower current synthroid dose. Code status DNR/DNI Time Spent With Patient Time with patient: less than 30 minutes Quality VTE Deep Vein Thrombosis/Pulmonary Embolism Present on Admission: No
[2023-03-06 09:50] VITALS: TEMP 36.4
[2023-03-06] MEDS: GABAPENTIN 100 MG CAPSULE PO ×2 (10:00→21:06)
[2023-03-06] MEDS: CLOPIDOGREL 75 MG TABLET PO (10:00)
[2023-03-06] MEDS: DOCUSATE 100 MG CAPSULE PO ×2 (10:00→21:06)
[2023-03-06 11:58] VITALS: BP 126/54; PULSE 73; RESP 16; O2SAT 98
--- NOTE | 2023-03-06 17:32 | PC.NURSE ---
Addendum entered by Paulina Mcduffie R.N. 03/06/23 18:58: Visitor at bedside at 1730 was not son. He was a friend. Original Note: Pt is agreeable to shower this a.m. and sitting up in the chair. He is assisted back to bed per request and naps on and off throughout the day. He receives a call from his son today saying that he will be by this evening. He states He is an asshole. I've been here almost 90 days and he hasn't come to see me. RN informed patient that if he requests, he can ask for his son not to be allowed in to visit him. Patient states I want to see him. He states I got something I want to tell him. Patient son arrives at 1730 this evening and sits with patient at bedside. Continuous monitoring.
[2023-03-06 20:30] VITALS: BP 131/68; PULSE 67; RESP 16; TEMP 36.6; O2SAT 100
[2023-03-06] MEDS: HYDROCODONE/ACET 10/325 TABLET 1 TAB PO (21:05)
[2023-03-06] MEDS: MELATONIN 3 MG TABLET 6 MG PO (21:06)
[2023-03-06] MEDS: METOPROLOL IR 25 MG TABLET 12.5 MG PO (21:06)
[2023-03-06] MEDS: SERTRALINE 50 MG TABLET 100 MG PO (21:07)
[2023-03-07] MEDS: LEVOTHYROXINE 75 MCG TABLET 150 MCG PO (05:55)
[2023-03-07 07:00] VITALS: BP 128/74; PULSE 64; RESP 20; TEMP 36.6; O2SAT 99
--- NOTE | 2023-03-07 08:17 | PM.PN.1 ---
Subjective Subjective Interval history: Labs repeated and CMP/CBC look good. TSH low at 0.02. T4 normal. Patient wants a different sleeping pill as he is having trouble sleeping so trazodone ordered. Will hold synthroid for now in case of over medication driving down TSH and causing insomnia. Exam Vital Signs (past 8 hours): - 03/07/23 07:00 Temperature 97.8 F Pulse Rate 64 Respiratory Rate 20 Blood Pressure 128/74 Pulse Oximetry 99 Oxygen Flow Rate 0 Oxygen Delivery Method Room Air Oxygen Flow Rate 0 Narrative Exam Narrative: GEN: no acute distress Objective Labs 03/07/23 09:20 03/07/23 09:20 PFSH Medical History Cerebrovascular accident Chronic GERD Dementia Hyperlipidemia Hypertension Social History household members: children Smoking Status: Former smoker alcohol intake: current Assessment & Plan Assessment & Plan narrative: 1. Unstable discharge for a debilitated elderly male with multiple medical comorbidities Patient remains here under observation status while an appropriate disposition is identified. Placement efforts ongoing. 2. History of stroke with left-sided weakness, POA and stable. ? chronic, stable 3. Coronary artery disease, POA and stable. Previous stenting.? No acute symptoms.? Continue home meds 4. Hypertension, POA and stable. Remains normotensive.? Continue usual home meds. 5. Dementia, POA and stable. ?slums assessment performed last month resulted in a 21/30, consistent with mild cognitive deficits. 6. Depression, POA and stable. Continue Zoloft 7. Hypothyroidism, POA and stable. TSH 0.02 with normal T4 on 03/07. Will hold synthroid and recheck TSH in 1 week. 8. Insomnia Trazodone nightly ordered. Code status DNR/DNI Time Spent With Patient Time with patient: less than 30 minutes Quality VTE Deep Vein Thrombosis/Pulmonary Embolism Present on Admission: No
[2023-03-07 09:34] LABS: Add Manual Diff / Slide Review NO; Basophils Absolute Auto 100 /uL (0-100); Basophils Percent Auto 1.5 % (0-2); Eosinophils Absolute Auto 1200 /uL (0-450); Eosinophils Percent Auto 18.6 % (2-4); Hematocrit 29.9 % (41-53); Hemoglobin 9.9 g/dL (13.5-17.5); Lymphocytes Absolute Auto 1100 /uL (1100-4500); Lymphocytes Percent Auto 18.2 % (25-40); Mean Corpuscular Hemoglobin 28.4 PG (26-34); Mean Corpuscular Volume 86.1 fL (80-100); Monocytes Absolute Auto 600 /uL (0-900); Monocytes Percent Auto 10.2 % (3-14); Neutrophils Absolute Auto 3200 /uL (1500-7000); Neutrophils Percent Auto 51.5 % (50-75); Platelet Count 280 X10^3/uL (150-400); Red Blood Cell Count 3.47 X10^6/uL (4.5-5.9); Red Cell Distribution Width 17.4 % (11.6-14.8); White Blood Cell Count 6.2 X10^3/uL (4.5-11.0)
[2023-03-07 09:48] LABS: Alanine Aminotransferase 48 IU/L (<50); Albumin 3.6 g/dL (3.5-5.0); Alkaline Phosphatase 406 U/L (38-126); Aspartate Aminotransferase 53 IU/L (17-59); BUN Creatinine Ratio 35.8 (6-22); Bilirubin Total 0.3 mg/dL (0.2-1.3); Blood Urea Nitrogen 34 mg/dL (9-20); Calcium 9.6 mg/dL (8.4-10.2); Carbon Dioxide 25 mmol/L (22-32); Chloride 106 mmol/L (98-107); Estimated Glomerular Filt Rate > 60 mL/min (>60); Globulin 3.5 g/dL (1.7-4.1); Glucose 175 mg/dL (80-110); HEMOLYSIS < 15 (0-50); Potassium 3.9 mmol/L (3.4-5.1); Sodium 137 mmol/L (137-145); Total Protein 7.1 g/dL (6.3-8.2)
[2023-03-07 09:49] LABS: Magnesium 2.3 mg/dL (1.6-2.3)
[2023-03-07 10:21] LABS: TSH w/ Reflex to FT4 0.02 uIU/mL (0.47-4.68)
[2023-03-07 10:45] LABS: Free T4, Direct Thyroxine 1.73 ng/dL (0.78-2.19)
[2023-03-07] MEDS: CLOPIDOGREL 75 MG TABLET PO (10:57)
[2023-03-07] MEDS: DOCUSATE 100 MG CAPSULE PO ×2 (10:57→20:44)
[2023-03-07] MEDS: METOPROLOL IR 25 MG TABLET 12.5 MG PO (10:57)
[2023-03-07] MEDS: polyethylene glycoL 3350 17 GM POWD.PACK PO (10:58)
[2023-03-07] MEDS: GABAPENTIN 100 MG CAPSULE PO ×2 (11:00→20:45)
[2023-03-07] MEDS: diphenhydrAMINE 25 MG TABLET PO (14:33)
[2023-03-07] MEDS: HYDROCODONE/ACET 10/325 TABLET 1 TAB PO ×2 (14:33→20:47)
[2023-03-07 19:00] VITALS: BP 107/68; PULSE 56; RESP 16; TEMP 36.6; O2SAT 98
[2023-03-07] MEDS: TRAZODONE 50 MG TABLET PO (20:44)
[2023-03-07] MEDS: SERTRALINE 50 MG TABLET 100 MG PO (20:44)
[2023-03-07] MEDS: TEMAZEPAM 15 MG CAPSULE PO (23:50)
--- NOTE | 2023-03-08 07:35 | P.PN_ITS ---
Subjective Subjective Interval history: Patient sleep better, but took him until 0200 to fall asleep. Exam Vital Signs (past 8 hours): Oxygen Delivery Method Room Air Oxygen Flow Rate 0 Narrative Exam Narrative: GEN: no acute distress Objective Labs 03/07/23 09:20 03/07/23 09:20 Labs: Laboratory Results - last 24 hr 03/07/23 03/07/23 03/07/23 09:20 09:20 09:20 WBC 6.2 RBC 3.47 L Hgb 9.9 L Hct 29.9 L MCV 86.1 MCH 28.4 MCHC 33.0 RDW 17.4 H Plt Count 280 Neut % (Auto) 51.5 Lymph % (Auto) 18.2 L [place] % (Auto) 10.2 Eos % (Auto) 18.6 H Baso % (Auto) 1.5 Neut # (Auto) 3200 Lymph # (Auto) 1100 [place] # (Auto) 600 Eos # (Auto) 1200 H Baso # (Auto) 100 Sodium Potassium Chloride Carbon Dioxide BUN Creatinine Estimated GFR BUN/Creatinine Ratio Glucose Calcium Magnesium 2.3 Total Bilirubin AST ALT Alkaline Phosphatase Total Protein Albumin Globulin Albumin/Globulin Ratio TSH 0.02 L Free T4 1.73 03/07/23 09:20 WBC RBC Hgb Hct MCV MCH MCHC RDW Plt Count Neut % (Auto) Lymph % (Auto) [place] % (Auto) Eos % (Auto) Baso % (Auto) Neut # (Auto) Lymph # (Auto) [place] # (Auto) Eos # (Auto) Baso # (Auto) Sodium 137 Potassium 3.9 Chloride 106 Carbon Dioxide 25 BUN 34 H Creatinine 0.95 Estimated GFR > 60 BUN/Creatinine Ratio 35.8 H Glucose 175 H Calcium 9.6 Magnesium Total Bilirubin 0.3 AST 53 ALT 48 Alkaline Phosphatase 406 H Total Protein 7.1 Albumin 3.6 Globulin 3.5 Albumin/Globulin Ratio 1.0 TSH Free T4 [facility] Medical History Cerebrovascular accident Chronic GERD Dementia Hyperlipidemia Hypertension Social History household members: children Smoking Status: Former smoker alcohol intake: current Assessment & Plan Assessment & Plan narrative: 1. Unstable discharge for a debilitated elderly male with multiple medical comorbidities Patient remains here under observation status while an appropriate disposition is identified. Placement efforts ongoing. 2. History of stroke with left-sided weakness, POA and stable. ? chronic, stable 3. Coronary artery disease, POA and stable. Previous stenting.? No acute symptoms.? Continue home meds 4. Hypertension, POA and stable. Remains normotensive.? Continue usual home meds. 5. Dementia, POA and stable. ?slums assessment performed last month resulted in a 21/30, consistent with mild cognitive deficits. 6. Depression, POA and stable. Continue Zoloft 7. Hypothyroidism, POA and stable. TSH 0.02 with normal T4 on 03/07. Will hold synthroid and recheck TSH in 1 week. 8. Insomnia Trazodone nightly ordered plus temazepam PRN Code status DNR/DNI Time Spent With Patient Time with patient: less than 30 minutes Quality VTE Deep Vein Thrombosis/Pulmonary Embolism Present on Admission: No
[2023-03-08] MEDS: GABAPENTIN 100 MG CAPSULE PO ×2 (09:24→20:14)
[2023-03-08] MEDS: CLOPIDOGREL 75 MG TABLET PO (09:24)
--- NOTE | 2023-03-08 13:12 | PC.NURSE ---
Addendum entered by Juliet Ro R.N. 03/08/23 13:21: large loose bm, stool meds held. Original Note: 1100: patient agreeable to get OOB to shower and get up for meal. 2pa transfer OOB to w/c. hypotensive when moved from supine to sitting. due to weakened state, he had a difficult time sitting on shower chair. allowed hair to be placed into a braided ponytail + his alvarez to be combed into a braid. will attempt OOB for dinner as well. bed alarm is on, call light w/in reach.
[2023-03-08 19:54] VITALS: BP 116/67; PULSE 60; RESP 18; TEMP 37.1; O2SAT 98
[2023-03-08] MEDS: TRAZODONE 50 MG TABLET 100 MG PO (20:14)
[2023-03-08] MEDS: SERTRALINE 50 MG TABLET 100 MG PO (20:14)
[2023-03-08] MEDS: METOPROLOL IR 25 MG TABLET 12.5 MG PO (20:14)
[2023-03-08] MEDS: TEMAZEPAM 15 MG CAPSULE PO (23:06)
--- NOTE | 2023-03-09 00:03 | PC.NURSE ---
Patient is alert and oriented. Son, Sudhakar, and grand-daughter here to visit for 1 hour tonight from [id number] after which patient tearful and states son told him another one of his son's is having to back to [facility]. Also stated son stated he would be here tomorrow to have lunch with him. Breath sounds CTA with RA sat of 98%. HRR. Denies nausea. BT present and abdomen is soft; day RN reported he was incontinent of loose stool earlier this morning so Jessica held tonight. Is voiding per urinal but was also incontinent of urine and is wearing brief. Is able to turn himself in bed. Chronic weakness in left extremities and requires 1-2 assist with walker to get out of bed. Denied pain when asked. Requested sleeping pill tonight and was medicated with Temazepam and appears to be currently asleep. Fall risk score is high and bed alarm is activated.
[2023-03-09 07:00] VITALS: BP 135/73; PULSE 56; RESP 16; TEMP 36.3; O2SAT 99
[2023-03-09] MEDS: DOCUSATE 100 MG CAPSULE PO (08:22)
[2023-03-09] MEDS: HYDROCODONE/ACET 10/325 TABLET 1 TAB PO ×3 (08:22→19:24)
[2023-03-09] MEDS: diphenhydrAMINE 25 MG TABLET PO ×2 (08:23→19:26)
[2023-03-09] MEDS: GABAPENTIN 100 MG CAPSULE PO ×2 (08:23→20:41)
[2023-03-09] MEDS: METOPROLOL IR 25 MG TABLET 12.5 MG PO ×2 (08:23→20:41)
[2023-03-09] MEDS: CLOPIDOGREL 75 MG TABLET PO (08:23)
--- NOTE | 2023-03-09 14:19 | CM.DPC ---
DCP Cont: JEOVANY spoke to pt's appointed Court Visitor Breezy Reyes ([phone]) who confirms he is frustrated with the length of time [employer] legal team is taking to provide him with pt's financial bank records. Breezy confirms though and requests support with completing the Medicaid LTC application and submitting it to start the process and he will sign the application and provide the financial information that he has. JEOVANY attended virtual meeting this morning with Erlinda from [employer] legal team, Director Jalyn, DIDI Wilkins and CFO Ware for weekly update from legal team and Erlinda updated that pt's upcoming Mar [address] will likely be postponed/rescheduled as a Guardian has not been secured since pt has not been approved for Medicaid yet to help cover the cost of Guardianship fees. The hospital would either need to confirm they would be willing to cover the cost of the first couple months of Guardianship fees directly while awaiting Medicaid application to be submitted and approved or denied or await Medicaid application process to determine if any barriers to approval first. Erlinda confirmed that pt's financials/assets can only be controlled by a Guardian and therefore Breezy as the Court Visitor cannot access finances for payments for housing or guardianship. Per Erlinda: I submitted an application for [id number] subpoena with [facility] around lunchtime.? Hopefully that will be granted soon, so that Breezy can subpoena [employer] records as well. JEOVANY completed a majority of the Medicaid LTC application for the patient and scanned and emailed it to pt's Court Visitor Breezy at [email or web address] and requested he either scan and email back, fax to CM dept, or fax directly to [facility] once he completes the financial section and signs the first and last page. Plan: JEOVANY to follow closely for Breezy to complete the Medicaid application this week and submit to [facility] towards ongoing need to get pt approved for Medicaid so a Guardian will be willing to accept the pt as a client and towards getting LTC placement at likely an [facility]. CHARITY Bradshaw
--- NOTE | 2023-03-09 14:23 | PM.PN.1 ---
Subjective Subjective Interval history: Patient slept alot better last night. He found out his court date is set for Mar 20 so he is excited about that. Exam Vital Signs (past 8 hours): - 03/09/23 07:00 Temperature 97.4 F L Pulse Rate 56 L Respiratory Rate 16 Blood Pressure 135/73 Pulse Oximetry 99 Oxygen Flow Rate 0 Oxygen Delivery Method Room Air Oxygen Flow Rate 0 Narrative Exam Narrative: GEN: no acute distress Objective Labs 03/07/23 09:20 03/07/23 09:20 PFSH Medical History Cerebrovascular accident Chronic GERD Dementia Hyperlipidemia Hypertension Social History household members: children Smoking Status: Former smoker alcohol intake: current Assessment & Plan Assessment & Plan narrative: 1. Unstable discharge for a debilitated elderly male with multiple medical comorbidities Patient remains here under observation status while an appropriate disposition is identified. Placement efforts ongoing. 2. History of stroke with left-sided weakness, POA and stable. ? chronic, stable 3. Coronary artery disease, POA and stable. Previous stenting.? No acute symptoms.? Continue home meds 4. Hypertension, POA and stable. Remains normotensive.? Continue usual home meds. 5. Dementia, POA and stable. ?slums assessment performed last month resulted in a 21/30, consistent with mild cognitive deficits. 6. Depression, POA and stable. Continue Zoloft 7. Hypothyroidism, POA and stable. TSH 0.02 with normal T4 on 03/07. Will hold synthroid and recheck TSH in 1 week. 8. Insomnia Trazodone nightly ordered plus temazepam PRN Code status DNR/DNI Time Spent With Patient Time with patient: less than 30 minutes Quality VTE Deep Vein Thrombosis/Pulmonary Embolism Present on Admission: No
[2023-03-09] MEDS: polyethylene glycoL 3350 17 GM POWD.PACK PO (16:06)
--- NOTE | 2023-03-09 17:04 | PC.NURSE ---
1200- Patient's son and grandson at bedside eating lunch. Notified Elizabeth in care management. Son and grandson left ~1225-RN saw them from down the garcia. Informed Care Management that they had left before she could talk to them.
--- NOTE | 2023-03-09 18:06 | PC.NURSE ---
Patient up to bedside commode and chair for dinner- reports feeling weak and would like to resume physical therapy to get stronger. Notified Dr. Scanlon and he ordered physical therapy to start tomorrow. Call light in reach- warm blankets and hydration provided
[2023-03-09 20:25] VITALS: BP 120/59; PULSE 62; RESP 18; TEMP 36.5; O2SAT 98
[2023-03-09] MEDS: SERTRALINE 50 MG TABLET 100 MG PO (20:41)
[2023-03-09] MEDS: TRAZODONE 50 MG TABLET 100 MG PO (20:41)
[2023-03-09] MEDS: TEMAZEPAM 15 MG CAPSULE PO (21:59)
--- NOTE | 2023-03-10 01:32 | PC.NURSE ---
Patient is alert and mostly oriented but can be forgetful at times. Breath sounds CTA with RA sat of 98%. HRR. Denies nausea. BT present and abdomen is soft; had BM on previous shift. Is voiding per urinal but sometimes is also incontinent of urine so is wearing a pull-up. Is able to turn himself in bed. When out of bed is assisted with 1-2 people and using walker but reportedly complaining today of increased weakness so will be starting with PT in a.m. per patient request/MD order. Did complain of chronic back pain at shift change and was medicated with Vicodin. Also taking Temazepam at night for sleep and stated he slept well last night and is currently asleep again at this time. Bed alarm is activated as fall risk score is high.
[2023-03-10] MEDS: LEVOTHYROXINE 75 MCG TABLET 150 MCG PO (06:16)
[2023-03-10 07:00] VITALS: BP 124/60; PULSE 57; RESP 16; TEMP 36.8; O2SAT 98
--- NOTE | 2023-03-10 07:47 | PM.PN.1 ---
Subjective Subjective Interval history: No new complaints. Exam Vital Signs (past 8 hours): Oxygen Delivery Method Room Air Oxygen Flow Rate 0 Narrative Exam Narrative: GEN: no acute distress Objective Labs 03/07/23 09:20 03/07/23 09:20 PFS Medical History Cerebrovascular accident Chronic GERD Dementia Hyperlipidemia Hypertension Social History household members: children Smoking Status: Former smoker alcohol intake: current Assessment & Plan Assessment & Plan narrative: 1. Unstable discharge for a debilitated elderly male with multiple medical comorbidities Patient remains here under observation status while an appropriate disposition is identified. Placement efforts ongoing. 2. History of stroke with left-sided weakness, POA and stable. ? chronic, stable 3. Coronary artery disease, POA and stable. Previous stenting.? No acute symptoms.? Continue home meds 4. Hypertension, POA and stable. Remains normotensive.? Continue usual home meds. 5. Dementia, POA and stable. ?slums assessment performed last month resulted in a 21/30, consistent with mild cognitive deficits. 6. Depression, POA and stable. Continue Zoloft 7. Hypothyroidism, POA and stable. TSH 0.02 with normal T4 on 03/07. Will hold synthroid and recheck TSH in 1 week. 8. Insomnia Trazodone nightly ordered plus temazepam PRN Code status DNR/DNI Time Spent With Patient Time with patient: less than 30 minutes Quality VTE Deep Vein Thrombosis/Pulmonary Embolism Present on Admission: No
[2023-03-10] MEDS: GABAPENTIN 100 MG CAPSULE PO ×2 (09:29→20:07)
[2023-03-10] MEDS: METOPROLOL IR 25 MG TABLET 12.5 MG PO ×2 (09:29→20:08)
[2023-03-10] MEDS: CLOPIDOGREL 75 MG TABLET PO (09:29)
[2023-03-10] MEDS: HYDROCODONE/ACET 10/325 TABLET 1 TAB PO ×2 (13:53→20:08)
--- NOTE | 2023-03-10 14:07 | CM.DPC ---
INP Guardianship Per Erlinda at [facility], I spoke with professional guardian Keesha De La Cruz this morning about the barriers to Medicaid edibility and what steps we are taking to qualify Mr. Cotter for Medicaid.? She would like to meet with Mr. Cotter and then will tell us if this is a patient she would be willing to accept appointment as guardian and conservator.? I gave her the main Care Management number. Also, her accepting him as a client may depend on whether he would be willing to relocate to [facility]. CHARITY Bradshaw
--- NOTE | 2023-03-10 16:35 | PT-IP ANOTE ---
Attempted physical therapy evaluation. Pt refused to get up today. He reports he will get up tomorrow. He is very worried about his left LE being too weak to hold him up. Will attempt eval again tomorrow.
--- NOTE | 2023-03-10 18:21 | PC.NURSE ---
pt contacted son via telephone at 1500.
[2023-03-10 19:00] VITALS: BP 106/62; PULSE 57; TEMP 36.6
[2023-03-10] MEDS: TEMAZEPAM 15 MG CAPSULE PO (20:06)
[2023-03-10] MEDS: TRAZODONE 50 MG TABLET 100 MG PO (20:07)
[2023-03-10] MEDS: DOCUSATE 100 MG CAPSULE PO (20:08)
[2023-03-10] MEDS: SERTRALINE 50 MG TABLET 100 MG PO (20:08)
[2023-03-11] MEDS: LEVOTHYROXINE 75 MCG TABLET 150 MCG PO (06:27)
[2023-03-11 07:00] VITALS: BP 101/49; PULSE 57; RESP 16; TEMP 36.3; O2SAT 98
--- NOTE | 2023-03-11 07:57 | PM.PN.1 ---
Subjective Subjective Interval history: Patient worked with PT and he feels good about moving around more. He is going to continue doing exercises. Exam Vital Signs (past 8 hours): Oxygen Delivery Method Room Air Oxygen Flow Rate 0 Narrative Exam Narrative: GEN: no acute distress Objective Labs 03/07/23 09:20 03/07/23 09:20 [facility] Medical History Cerebrovascular accident Chronic GERD Dementia Hyperlipidemia Hypertension Social History household members: children Smoking Status: Former smoker alcohol intake: current Assessment & Plan Assessment & Plan narrative: 1. Unstable discharge for a debilitated elderly male with multiple medical comorbidities Patient remains here under observation status while an appropriate disposition is identified. Placement efforts ongoing. 2. History of stroke with left-sided weakness, POA and stable. ? chronic, stable 3. Coronary artery disease, POA and stable. Previous stenting.? No acute symptoms.? Continue home meds 4. Hypertension, POA and stable. Remains normotensive.? Continue usual home meds. 5. Dementia, POA and stable. ?slums assessment performed last month resulted in a 21/30, consistent with mild cognitive deficits. 6. Depression, POA and stable. Continue Zoloft 7. Hypothyroidism, POA and stable. TSH 0.02 with normal T4 on 03/07. Will hold synthroid and recheck TSH in 1 week. 8. Insomnia Trazodone nightly ordered plus temazepam PRN Code status DNR/DNI Time Spent With Patient Time with patient: less than 30 minutes Quality VTE Deep Vein Thrombosis/Pulmonary Embolism Present on Admission: No
[2023-03-11] MEDS: CLOPIDOGREL 75 MG TABLET PO (09:20)
[2023-03-11] MEDS: METOPROLOL IR 25 MG TABLET 12.5 MG PO ×2 (09:20→20:32)
[2023-03-11] MEDS: GABAPENTIN 100 MG CAPSULE PO ×2 (09:20→20:33)
--- NOTE | 2023-03-11 11:18 | PT.IIE ---
Current Diagnoses Weakness (12/14/22) Medical History (Last Reviewed 12/13/22 @ 07:19 by Abdon Conroy DO) Cerebrovascular accident Chronic GERD Dementia Hyperlipidemia Hypertension Physical Therapy Inpatient Evaluation/Re-Eval M3 PT-IP Subjective Start: 12/15/22 09:27 Freq: NEEDED Status: Active Protocol: Document 03/11/23 11:01 [facility] (Rec: 03/11/23 11:18 SAK [id number]) Subjective Physical Therapy Visit Type Type Initial Evaluation Visit Start Time 10:11 Visit Stop Time 10:43 Total Visit Minutes 32 Notes Patient willing to work with PT today, states I'm getting weak. Therapy Pain Assessment Pain When Pain Assessed During Mobility Pain Present Pain Present Pain Reported Location back Intensity 6 Scale Used Numeric (0 - 10) M4 PT-IP Mobility and Gait Start: 12/15/22 09:27 Freq: NEEDED Status: Active Protocol: Document 03/11/23 11:01 [facility] (Rec: 03/11/23 11:18 [facility] [id number]) PT-Bed Mobility Assessment Supine to Sit Supine to Sit Minimal Assistance,Head of Bed Elevated Scooting Scooting to Edge of Bed Minimal Assistance PT-Transfer Assessment Sit to and From Stand Sit to and from Stand Moderate Assistance Equipment Transfer Assistive Device Bed Rail,Gait Belt Transfers Transfer Destination Chair Transfer Technique Squat Pivot Transfer Ability Level of Assist Moderate Assistance,Use of Upper Extremities Comments Mobility Comments Patient performed ankle pumps and LAQ sitting EOB after MMT, unable to achieve full LAQ d/ t HS tightness, raj min resistance left quads. Patient unable to stand fully upright, tremulous right LE, flexed posture. After attempt at full stand x 2 using FWW, did squat pivot transfer bed to chair with mod assist, pt reaching for armrest of chair. Mod assist to scoot back in chair. Patient expressed fatigue after transfer. Gait Assessment Factors Limiting Gait Function Factors Limiting Gait Function Decreased Activity Tolerance, Decreased Strength,Poor Balance Comments Gait Comments unable to attempt, patient unable to attain full stand, tremulous, requested to sit back down on bed. PT-Balance Assessment Sitting Balance and Reactions Static Sitting Balance Ability Good Dynamic Sitting Balance Ability Fair Standing Balance and Reactions Static Standing Balance Ability Poor Dynamic Standing Balance Ability Poor M5 PT-IP Objective Assessments Start: 12/15/22 09:27 Freq: NEEDED Status: Active Protocol: Document 03/11/23 11:01 [facility] (Rec: 03/11/23 11:18 [facility] [id number]) Orientation Orientation/Cognition Level of Alertness Alert Orientation Name,Age,Place,Situation Language Function Ability No Deficits Noted Safety Awareness Understands Safety Issues Memory Description Short Term Impaired Gross Range of Motion Upper Extremity ROM Assessment Within Functional Limits Lower Extremity ROM Assessment Bilaterally Impaired Impairments lacking full knee extension in sitting approx 30 deg from straight, ankle df to 0 hilda Strength Upper Extremity Strength Assessment Within Functional Limits Lower Extremity Strength Hip flex 3-/5 Knee ext right 3-/5, left 2+/5, flex 4-/5 right, 3-/5 left Ankle 4/5 right, df 4-/5 left, pf 3/ 5 left M6 PT-IP Treatment Start: 12/15/22 09:27 Freq: NEEDED Status: Active Protocol: Document 03/11/23 11:01 [facility] (Rec: 03/11/23 11:18 [facility] [id number]) Physical Therapy Treatment Exercises Exercises Ankle Pumps,Gluteal Sets, Seated Knee Flexion/Extension M7 PT-IP Assessment and Plan Start: 12/15/22 09:27 Freq: NEEDED Status: Active Protocol: Document 03/11/23 11:01 [facility] (Rec: 03/11/23 11:18 [facility] [id number]) PT Summary Assessment and Plan Potential Rehabilitation Potential Fair Status of Condition at Evaluation Evolving Summary Impairments ROM,Strength,Balance,Gait Assessment Summary Patient weak and deconditioned due to long hospitalization and multiple prior refusals for PT. Patient requesting PT and highly receptive to PT intervention today. He required cues and min assist supine to sit, min assist to scoot to EOB, mod assist to transfer to chair, unable to ambulate due to weakness in legs, unsteadiness. Will benefit from PT to work on improving LE flexibility, strength, and all functional mobility skills for improved independence, and consult with SW to assist with appropriate discharge planning; SNF appears most appropriate. Goals Bed Mobility Goal Independent Transfer Goal Contact Guard Assistance Gait Goal Contact Guard Assistance Gait Distance 20 Days to Meet Goals 7 Frequency of Treatment Frequency Of Treatment Once a Day Treatment Plan Physical Therapy Treatment Plan Bed Mobility Training,Transfer Training,Gait Training, Therapeutic Exercise,Balance Retraining,Discharge Planning Weight Bearing Status Weight Bearing Status Full Weight Bearing Recommendations To Nursing Amount of Assist Needed 2 Person Assist,Mechanical Lift,Power Sit-Stand Discharge Recommendations PT Discharge Recommendations SNF Rehab
[2023-03-11 19:00] VITALS: BP 111/59; PULSE 62; RESP 20; TEMP 36.7; O2SAT 97
[2023-03-11] MEDS: TRAZODONE 50 MG TABLET 100 MG PO (20:33)
[2023-03-11] MEDS: SERTRALINE 50 MG TABLET 100 MG PO (20:33)
[2023-03-11] MEDS: TEMAZEPAM 15 MG CAPSULE PO (20:37)
[2023-03-12 07:00] VITALS: RESP 16
[2023-03-12] MEDS: LEVOTHYROXINE 75 MCG TABLET 150 MCG PO (07:06)
[2023-03-12] MEDS: METOPROLOL IR 25 MG TABLET 12.5 MG PO ×2 (09:44→20:37)
[2023-03-12] MEDS: CLOPIDOGREL 75 MG TABLET PO (09:45)
[2023-03-12] MEDS: GABAPENTIN 100 MG CAPSULE PO ×2 (09:45→20:39)
--- NOTE | 2023-03-12 11:55 | PT.IPTN ---
Current Diagnoses Weakness (12/14/22) Physical Therapy Treatment Note M3 PT-IP Subjective Start: 12/15/22 09:27 Freq: NEEDED Status: Active Protocol: Document 03/12/23 13:15 TS (Rec: 03/12/23 13:40 TS [id number]) Subjective Physical Therapy Visit Type Type Treatment Note Visit Start Time 11:55 Visit Stop Time 12:31 Total Visit Minutes 36 Number of COMMUNITY RELATIONS SPECIALIST Visits 1 Physical Therapy Visit Comments Patient Comments Found up with nursing using bathroom, reports feeling weak and pain in LLE when foot is flat, pt agreeable to PT. Therapy Pain Assessment Pain When Pain Assessed During Mobility Pain Present Pain Present Pain Reported M4 PT-IP Mobility and Gait Start: 12/15/22 09:27 Freq: NEEDED Status: Active Protocol: Document 03/12/23 13:15 TS (Rec: 03/12/23 13:40 TS [id number]) PT-Bed Mobility Assessment Sit to Supine Sit to Supine Minimal Assistance,1 Person Assistance PT-Transfer Assessment Sit to and From Stand Sit to and from Stand Maximum Assistance Equipment Transfer Assistive Device Gait Belt,Front Wheeled Walker Transfers Transfer Destination Bed Transfer Technique Stand Step Pivot Transfer Ability Level of Assist Maximum Assistance,1 Person Assistance,Use of Upper Extremities Comments Mobility Comments Pt ambulated ~10'ModA w/FWW, pt toe touches on LLE due to pain, leans laterally and posteriorly. Pt impulsive to sit before it is safe into chair due to weakness in LLE. He performed knee flex/ext and sitting marches x5 of each LE , demonstrates decreased strength in LLE. Pt requested not to ambulate but agreeable to sit to stands. performed sit to stand x3 MaxA with max cueing for scooting to edge of chair, weight forward and BUE support pushing from arms of chair. Pt is unsteady on feet and continues to lean laterally to left due poor strength in LLE. Pt requested back to bed, stand step pivot transfer MaxA with FWW. Pt slow with steps and requires max cueing for FWW management and keeping walker close to him. Sit to supine Carlin for LLE in bed, instrcuted pateint in assisting LLE with RLE hooking underneath ankle, pt performed with some success. Pt was left in bed with call light nearby, bed alarm on, all needs met. Gait Assessment Gait Gait Assistance Required: Minimum Assistance,Moderate Assistance,1 Person Assist Distance (Feet) 10 Assistive Devices Assistive Device Gait Belt,Front Wheeled Walker Orthotic/Prosthetic Devices or Brace: No Gait Deviations General Gait Pattern Antalgic,Decreased Stride Length,Decreased Feet Clearance,Lateral Trunk Lean, Narrow Based Gait,Step-to Gait Factors Limiting Gait Function Factors Limiting Gait Function Decreased Activity Tolerance, Decreased Strength, Incoordination,Limited Range of Motion,Pain,Poor Balance Comments Gait Comments See mobility comments. PT-Balance Assessment Sitting Balance and Reactions Static Sitting Balance Ability Good Dynamic Sitting Balance Ability Fair Standing Balance and Reactions Static Standing Balance Ability Poor Dynamic Standing Balance Ability Poor Comments Other Balance Tests/Deviations/Treatment See mobility comments : M5 PT-IP Objective Assessments Start: 12/15/22 09:27 Freq: NEEDED Status: Active Protocol: Document 03/11/23 11:01 SAK (Rec: 03/11/23 11:18 SAK [id number]) Orientation Orientation/Cognition Level of Alertness Alert Orientation Name,Age,Place,Situation Language Function Ability No Deficits Noted Safety Awareness Understands Safety Issues Memory Description Short Term Impaired Gross Range of Motion Upper Extremity ROM Assessment Within Functional Limits Lower Extremity ROM Assessment Bilaterally Impaired Impairments lacking full knee extension in sitting approx 30 deg from straight, ankle df to 0 hilda Strength Upper Extremity Strength Assessment Within Functional Limits Lower Extremity Strength Hip flex 3-/5 Knee ext right 3-/5, left 2+/5, flex 4-/5 right, 3-/5 left Ankle 4/5 right, df 4-/5 left, pf 3/ 5 left M6 PT-IP Treatment Start: 12/15/22 09:27 Freq: NEEDED Status: Active Protocol: Document 03/12/23 13:15 TS (Rec: 03/12/23 13:40 TS [id number]) Physical Therapy Treatment Exercises Exercises Seated Knee Flexion/Extension Education Education Provided Safety M7 PT-IP Assessment and Plan Start: 12/15/22 09:27 Freq: NEEDED Status: Active Protocol: Document 03/12/23 13:15 TS (Rec: 03/12/23 13:40 TS [id number]) PT Summary Assessment and Plan Potential Rehabilitation Potential Fair Summary Impairments ROM,Strength,Balance,Gait Progress Towards Goals Slow Progress due to Pain,Slow Progress due to Medical Issues,Slow Progress due to Activity Tolerance Assessment Summary Pt continues to be motivated and receptive to PT, he follows instruction well. He ambulated ~10' Carlin-ModA with FWW in room. He has poor balance and strength with gait requiring increased assist with increased time on feet, L >R. Pt attributes deficits on L side to previous strokes. He performed sit to stand x3 with MaxA from chair, pt requires max cueing for sit to stand technique. He performed stand step pivot transfer to bed with MaxA due to poor strenght and pain in LLE. Pt would benefit from continued skilled therapy to progress independence. Goals Bed Mobility Goal Independent Transfer Goal Contact Guard Assistance Gait Goal Contact Guard Assistance Gait Distance 20 Days to Meet Goals 7 Frequency of Treatment Frequency Of Treatment Once a Day Treatment Plan Physical Therapy Treatment Plan Bed Mobility Training,Transfer Training,Gait Training, Therapeutic Exercise,Balance Retraining,Discharge Planning Other Recommendations and Next Treatment bed mob, transfers, gait if Focus able tolerate using FWW, Continue safety education. Weight Bearing Status Weight Bearing Status Full Weight Bearing Recommendations To Nursing Amount of Assist Needed 2 Person Assist,Mechanical Lift,Power Sit-Stand Discharge Recommendations PT Discharge Recommendations SNF Rehab Transportation Needs at Discharge Private Vehicle,Wheelchair/ Cabulance
--- NOTE | 2023-03-12 12:26 | PM.PN.1 ---
Subjective Subjective Date Patient Seen: 03/12/23 Time Patient Seen: 08:00 Interval history: No new complaints Exam Vital Signs (past 8 hours): - 03/12/23 07:00 Respiratory Rate 16 Oxygen Delivery Method Room Air Oxygen Flow Rate 0 Narrative Exam Narrative: GEN: no acute distress Objective Labs 03/07/23 09:20 03/07/23 09:20 PFSH Medical History Cerebrovascular accident Chronic GERD Dementia Hyperlipidemia Hypertension Social History household members: children Smoking Status: Former smoker alcohol intake: current Assessment & Plan Assessment & Plan narrative: 1. Unstable discharge for a debilitated elderly male with multiple medical comorbidities Patient remains here under observation status while an appropriate disposition is identified. Placement efforts ongoing. 2. History of stroke with left-sided weakness, POA and stable. ? chronic, stable 3. Coronary artery disease, POA and stable. Previous stenting.? No acute symptoms.? Continue home meds 4. Hypertension, POA and stable. Remains normotensive.? Continue usual home meds. 5. Dementia, POA and stable. ?slums assessment performed last month resulted in a 21/30, consistent with mild cognitive deficits. 6. Depression, POA and stable. Continue Zoloft 7. Hypothyroidism, POA and stable. TSH 0.02 with normal T4 on 03/07. Will hold synthroid and recheck TSH in 1 week. 8. Insomnia Trazodone nightly ordered plus temazepam PRN Code status DNR/DNI Time Spent With Patient Time with patient: less than 30 minutes Quality VTE Deep Vein Thrombosis/Pulmonary Embolism Present on Admission: No
[2023-03-12 14:26] VITALS: BP 113/61; PULSE 61; RESP 16; TEMP 36.8; O2SAT 99
[2023-03-12 19:00] VITALS: BP 122/63; PULSE 67; RESP 20; TEMP 36.7; O2SAT 98
[2023-03-12] MEDS: SERTRALINE 50 MG TABLET 100 MG PO (20:37)
[2023-03-12] MEDS: TRAZODONE 50 MG TABLET 100 MG PO (20:37)
[2023-03-13] MEDS: LEVOTHYROXINE 75 MCG TABLET 150 MCG PO (05:49)
[2023-03-13 08:28] VITALS: BP 118/58; PULSE 57; TEMP 36.8; O2SAT 98
[2023-03-13] MEDS: GABAPENTIN 100 MG CAPSULE PO ×2 (09:55→20:46)
[2023-03-13] MEDS: CLOPIDOGREL 75 MG TABLET PO (09:55)
[2023-03-13] MEDS: METOPROLOL IR 25 MG TABLET 12.5 MG PO ×2 (09:55→20:47)
--- NOTE | 2023-03-13 14:06 | PT-IP ANOTE ---
Pt refused PT in morning and afternoon today. Pt was very apologetic but he is too tired today and would like therapist to return tomorrow.
--- NOTE | 2023-03-13 15:35 | PM.PN.1 ---
Subjective Subjective Date Patient Seen: 03/12/23 Interval history: No new complaints Exam Vital Signs (past 8 hours): - 03/13/23 08:28 Temperature 98.2 F Pulse Rate 57 L Blood Pressure 118/58 L Pulse Oximetry 98 Oxygen Flow Rate 0 Oxygen Delivery Method Room Air Oxygen Flow Rate 0 Narrative Exam Narrative: GEN: no acute distress Objective Labs 03/07/23 09:20 03/07/23 09:20 PFSH Medical History Cerebrovascular accident Chronic GERD Dementia Hyperlipidemia Hypertension Social History household members: children Smoking Status: Former smoker alcohol intake: current Assessment & Plan Assessment & Plan narrative: 1. Unstable discharge for a debilitated elderly male with multiple medical comorbidities Patient remains here under observation status while an appropriate disposition is identified. Placement efforts ongoing. 2. History of stroke with left-sided weakness, POA and stable. ? chronic, stable 3. Coronary artery disease, POA and stable. Previous stenting.? No acute symptoms.? Continue home meds 4. Hypertension, POA and stable. Remains normotensive.? Continue usual home meds. 5. Dementia, POA and stable. ?slums assessment performed last month resulted in a 21/30, consistent with mild cognitive deficits. 6. Depression, POA and stable. Continue Zoloft 7. Hypothyroidism, POA and stable. TSH 0.02 with normal T4 on 03/07. Will hold synthroid and recheck TSH in 1 week. 8. Insomnia Trazodone nightly ordered plus temazepam PRN Code status DNR/DNI Time Spent With Patient Time with patient: less than 30 minutes Quality VTE Deep Vein Thrombosis/Pulmonary Embolism Present on Admission: No
[2023-03-13 19:33] VITALS: BP 119/60; PULSE 66; RESP 20; TEMP 36.9; O2SAT 98
[2023-03-13] MEDS: TRAZODONE 50 MG TABLET 100 MG PO (20:46)
[2023-03-13] MEDS: SERTRALINE 50 MG TABLET 100 MG PO (20:46)
[2023-03-13] MEDS: HYDROCODONE/ACET 10/325 TABLET 1 TAB PO (21:20)
[2023-03-13] MEDS: TEMAZEPAM 15 MG CAPSULE PO (21:20)
--- NOTE | 2023-03-13 22:51 | PC.NURSE ---
Patient is alert and oriented except inaccurate on day of month and day of week. Does get weepy when talking about eventually moving to a facility and is sad to be leaving staff here. Breath sounds CTA with RA sat of 98%. HRR. Denies nausea. Reports he had 3 incontinent stools earlier today but was hard so is requesting Miralax and Colace in the morning. Is voiding per urinal but is also sometimes incontinent of urine so is wearing a pull-up. Is able to reposition himself in bed. During day gets up in the chair with walker and 1 assist and has been getting PT as well and states he is looking forward to trying to walk with them tomorrow. Does have weakness in left extremities related to history of CVA. Complains of chronic back pain and was medicated earlier with vicodin and states pain is diminishing. Medicated with Temazepam for sleep as without it he is awake most of night. Fall risk score is high and bed alarm is activated.
[2023-03-14] MEDS: DOCUSATE 100 MG CAPSULE PO (06:11)
[2023-03-14] MEDS: LEVOTHYROXINE 75 MCG TABLET 150 MCG PO (06:11)
[2023-03-14 07:00] VITALS: BP 99/50; PULSE 85; RESP 17; TEMP 36.6; O2SAT 98
[2023-03-14] MEDS: METOPROLOL IR 25 MG TABLET 12.5 MG PO ×2 (08:56→21:14)
[2023-03-14] MEDS: GABAPENTIN 100 MG CAPSULE PO ×2 (08:56→21:15)
[2023-03-14] MEDS: CLOPIDOGREL 75 MG TABLET PO (08:56)
[2023-03-14] MEDS: polyethylene glycoL 3350 17 GM POWD.PACK PO (10:41)
--- NOTE | 2023-03-14 12:22 | PT.IPTN ---
Current Diagnoses Weakness (12/14/22) Physical Therapy Treatment Note M3 PT-IP Subjective Start: 12/15/22 09:27 Freq: NEEDED Status: Active Protocol: Document 03/14/23 13:01 TS (Rec: 03/14/23 13:22 TS [id number]) Subjective Physical Therapy Visit Type Type Treatment Note Visit Start Time 12:22 Visit Stop Time 13:00 Total Visit Minutes 38 Number of WOOD ROOM SUPERVISOR Visits 2 Physical Therapy Visit Comments Patient Comments Pt found resting in bed, agreeable to PT. Therapy Pain Assessment Pain When Pain Assessed During Mobility Pain Present Pain Present Pain Reported M4 PT-IP Mobility and Gait Start: 12/15/22 09:27 Freq: NEEDED Status: Active Protocol: Document 03/14/23 13:01 TS (Rec: 03/14/23 13:22 TS [id number]) PT-Bed Mobility Assessment Supine to Sit Supine to Sit Minimal Assistance,Head of Bed Elevated Sit to Supine Sit to Supine Standby Assistance,1 Person Assistance Scooting Scooting to Edge of Bed Contact Guard Assistance Scooting Up and Down in Bed Independent PT-Transfer Assessment Sit to and From Stand Sit to and from Stand Maximum Assistance Equipment Transfer Assistive Device Gait Belt,Front Wheeled Walker Orthotic/Prosthetic Devices or Brace: No Transfers Transfer Destination Bed,Chair Transfer Technique Stand Step Pivot Transfer Ability Level of Assist Moderate Assistance,1 Person Assistance,Use of Upper Extremities Comments Mobility Comments Supine to sit Carlin for uprighting trunk with handheld assist, provided cues for handrail assist. pt scooted to EOB CGA with use of handrail, requires extra time and cues for handrail assist. He performed sit to stand MaxA for retrolean, provided cues for upright posture and weight forward. Pt performed stand step pivot to chair ModA for posterior lean, pt unsteady on his feet with TT on LLE. Sit to stand MaxA from chair w/FWW , pt ambulated ~20'ModA/Carlin, pt's posterior leans increases with increased gait, pt sat back on EOB due to fatigue. Sit to supine SBA with cues for active assist of LLE with use of RLE, pt demonstrates good carryover from previous session. Pt was left back in bed with call light nearby, all needs met. Gait Assessment Gait Gait Assistance Required: Minimum Assistance,Moderate Assistance,1 Person Assist Distance (Feet) 20 Assistive Devices Assistive Device Gait Belt,Front Wheeled Walker Orthotic/Prosthetic Devices or Brace: No Gait Deviations General Gait Pattern Antalgic,Decreased Stride Length,Decreased Feet Clearance,Lateral Trunk Lean, Narrow Based Gait,Step-to Gait Factors Limiting Gait Function Factors Limiting Gait Function Decreased Activity Tolerance, Decreased Strength, Incoordination,Limited Range of Motion,Pain,Poor Balance Comments Gait Comments See mobility comments. PT-Balance Assessment Sitting Balance and Reactions Static Sitting Balance Ability Good Dynamic Sitting Balance Ability Fair Standing Balance and Reactions Static Standing Balance Ability Poor Dynamic Standing Balance Ability Poor Comments Other Balance Tests/Deviations/Treatment See mobility comments : M5 PT-IP Objective Assessments Start: 12/15/22 09:27 Freq: NEEDED Status: Active Protocol: Document 03/11/23 11:01 [facility] (Rec: 03/11/23 11:18 SAK [id number]) Orientation Orientation/Cognition Level of Alertness Alert Orientation Name,Age,Place,Situation Language Function Ability No Deficits Noted Safety Awareness Understands Safety Issues Memory Description Short Term Impaired Gross Range of Motion Upper Extremity ROM Assessment Within Functional Limits Lower Extremity ROM Assessment Bilaterally Impaired Impairments lacking full knee extension in sitting approx 30 deg from straight, ankle df to 0 hilda Strength Upper Extremity Strength Assessment Within Functional Limits Lower Extremity Strength Hip flex 3-/5 Knee ext right 3-/5, left 2+/5, flex 4-/5 right, 3-/5 left Ankle 4/5 right, df 4-/5 left, pf 3/ 5 left M6 PT-IP Treatment Start: 12/15/22 09:27 Freq: NEEDED Status: Active Protocol: Document 03/14/23 13:01 TS (Rec: 03/14/23 13:22 TS [id number]) Physical Therapy Treatment Exercises Exercises Ankle Pumps,Heel Slides, Straight Leg Raises,Seated Knee Flexion/Extension Education Education Provided Safety Other Treatments Other Treatment Performed Pt performed supine and sitting EOB. M7 PT-IP Assessment and Plan Start: 12/15/22 09:27 Freq: NEEDED Status: Active Protocol: Document 03/14/23 13:01 TS (Rec: 03/14/23 13:22 TS [id number]) PT Summary Assessment and Plan Potential Rehabilitation Potential Fair Summary Impairments ROM,Strength,Balance,Gait Progress Towards Goals Slow Progress due to Pain,Slow Progress due to Medical Issues,Slow Progress due to Activity Tolerance Assessment Summary Gareth is making some progress but continues to be limited by continued pain in LLE, poor strength and low activity tolerance. He requires max cueing for use of handrails for bed mobility and sit to stand technique. He continues to ambulate short distances becoming fatigued quickly requiring short rest breaks. Pt is unsteady with gait and static standing due to poor balance and posterior leaning. Pt is motivated to work with therapy and wants to improve. Pt would benefit from continued skilled therapy. Goals Bed Mobility Goal Independent Transfer Goal Contact Guard Assistance Gait Goal Contact Guard Assistance Gait Distance 20 Days to Meet Goals 7 Frequency of Treatment Frequency Of Treatment Once a Day Treatment Plan Physical Therapy Treatment Plan Bed Mobility Training,Transfer Training,Gait Training, Therapeutic Exercise,Balance Retraining,Discharge Planning Other Recommendations and Next Treatment bed mob, transfers, gait if Focus able tolerate using FWW, Continue safety education. Weight Bearing Status Weight Bearing Status Full Weight Bearing Recommendations To Nursing Amount of Assist Needed 2 Person Assist Discharge Recommendations PT Discharge Recommendations SNF Rehab Transportation Needs at Discharge Private Vehicle,Wheelchair/ Cabulance
[2023-03-14] MEDS: HYDROCODONE/ACET 10/325 TABLET 1 TAB PO ×2 (13:03→21:15)
--- NOTE | 2023-03-14 14:27 | PM.PN.1 ---
Subjective Subjective Date Patient Seen: 03/12/23 Interval history: No new complaints Exam Vital Signs (past 8 hours): - 03/14/23 07:00 Temperature 97.8 F Pulse Rate 85 Respiratory Rate 17 Blood Pressure 99/50 L Pulse Oximetry 98 Oxygen Flow Rate 0 Oxygen Delivery Method Room Air Oxygen Flow Rate 0 Narrative Exam Narrative: GEN: no acute distress, chronically ill appearing Objective Labs 03/07/23 09:20 03/07/23 09:20 PFSH Medical History Cerebrovascular accident Chronic GERD Dementia Hyperlipidemia Hypertension Social History household members: children Smoking Status: Former smoker alcohol intake: current Assessment & Plan Assessment & Plan narrative: 1. Unstable discharge for a debilitated elderly male with multiple medical comorbidities Patient remains here under observation status while an appropriate disposition is identified. Placement efforts ongoing. 2. History of stroke with left-sided weakness, POA and stable. ? chronic, stable 3. Coronary artery disease, POA and stable. Previous stenting.? No acute symptoms.? Continue home meds 4. Hypertension, POA and stable. Remains normotensive.? Continue usual home meds. 5. Dementia, POA and stable. ?slums assessment performed last month resulted in a 21/30, consistent with mild cognitive deficits. 6. Depression, POA and stable. Continue Zoloft 7. Hypothyroidism, POA and stable. TSH 0.02 with normal T4 on 03/07. Will hold synthroid and recheck TSH in 1 week. 8. Insomnia Trazodone nightly ordered plus temazepam PRN Code status DNR/DNI Time Spent With Patient Time with patient: less than 30 minutes Quality VTE Deep Vein Thrombosis/Pulmonary Embolism Present on Admission: No
[2023-03-14 19:59] VITALS: BP 134/61; PULSE 60; RESP 16; TEMP 36.6; O2SAT 99
[2023-03-14] MEDS: SERTRALINE 50 MG TABLET 100 MG PO (21:14)
[2023-03-14] MEDS: TEMAZEPAM 15 MG CAPSULE PO (21:15)
[2023-03-14] MEDS: TRAZODONE 50 MG TABLET 100 MG PO (21:16)
--- NOTE | 2023-03-15 00:05 | PC.NURSE ---
Patient is alert and oriented except stated it was February and did not know day of month or day of week. Breath sounds CTA with RA sat of 99%. HRR. Denies nausea. BT hyperactive and abdomen is soft. Has been incontinent of B&B at times but also uses urinal. Is able to turn himself in bed. Has been working with PT and reports he was able to walk in room today from chair to door and back to chair with 1 assist + walker; chronic left sided weakness related to history of CVA. Chronic back pain relieved with use of prn vicodin. Took Temazepam again tonight and is already sleeping. Fall risk score is high and bed alarm is activated.
[2023-03-15] MEDS: LEVOTHYROXINE 75 MCG TABLET 150 MCG PO (06:07)
[2023-03-15] MEDS: METOPROLOL IR 25 MG TABLET 12.5 MG PO (10:17)
[2023-03-15] MEDS: CLOPIDOGREL 75 MG TABLET PO (10:17)
[2023-03-15] MEDS: GABAPENTIN 100 MG CAPSULE PO ×2 (10:17→20:17)
[2023-03-15 10:48] VITALS: BP 117/59; PULSE 60; RESP 18; TEMP 36.4; O2SAT 98
--- NOTE | 2023-03-15 14:19 | PT.IPTN ---
Current Diagnoses Weakness (12/14/22) Physical Therapy Treatment Note M3 PT-IP Subjective Start: 12/15/22 09:27 Freq: NEEDED Status: Active Protocol: Document 03/15/23 14:04 [place] (Rec: 03/15/23 14:37 KS [id number]) Subjective Physical Therapy Visit Type Type Treatment Note Visit Start Time 14:04 Visit Stop Time 14:19 Total Visit Minutes 15 Number of ADULT LIVE IN CAREGIVER Visits 3 Physical Therapy Visit Comments Patient Comments Pt agreeable to LE exs. M4 PT-IP Mobility and Gait Start: 12/15/22 09:27 Freq: NEEDED Status: Active Protocol: Document 03/15/23 14:04 KS (Rec: 03/15/23 14:37 KS [id number]) PT-Transfer Assessment Comments Mobility Comments Pt in bed reporting high level of fatigue due to lack of sleep last night. Does not wish to get out of bed at this time, but agreed to BLE exercises in supine. Pt completed 2x10 ankle pumps, quad sets, and glute sets, and 2x5 SLR, abduction, and heel slides. LLE weaker than RLE and needs min A for heel slides. Pt left in bed w/ all needs in reach. Gait Assessment Comments Gait Comments Refused gait d/t fatigue. Endorses recent ambulation to bathroom w. nursing staff. M5 PT-IP Objective Assessments Start: 12/15/22 09:27 Freq: NEEDED Status: Active Protocol: Document 03/11/23 11:01 SAK (Rec: 03/11/23 11:18 SAK [id number]) Orientation Orientation/Cognition Level of Alertness Alert Orientation Name,Age,Place,Situation Language Function Ability No Deficits Noted Safety Awareness Understands Safety Issues Memory Description Short Term Impaired Gross Range of Motion Upper Extremity ROM Assessment Within Functional Limits Lower Extremity ROM Assessment Bilaterally Impaired Impairments lacking full knee extension in sitting approx 30 deg from straight, ankle df to 0 hilda Strength Upper Extremity Strength Assessment Within Functional Limits Lower Extremity Strength Hip flex 3-/5 Knee ext right 3-/5, left 2+/5, flex 4-/5 right, 3-/5 left Ankle 4/5 right, df 4-/5 left, pf 3/ 5 left M6 PT-IP Treatment Start: 12/15/22 09:27 Freq: NEEDED Status: Active Protocol: Document 03/15/23 14:04 KS (Rec: 03/15/23 14:37 KS [id number]) Physical Therapy Treatment Exercises Exercises Ankle Pumps,Gluteal Sets,Quad Sets,Heel Slides,Straight Leg Raises,Supine Hip Abduction Education Education Provided Safety M7 PT-IP Assessment and Plan Start: 12/15/22 09:27 Freq: NEEDED Status: Active Protocol: Document 03/15/23 14:04 KS (Rec: 03/15/23 14:37 KS [id number]) PT Summary Assessment and Plan Potential Rehabilitation Potential Fair Summary Impairments ROM,Strength,Balance,Gait Progress Towards Goals Slow Progress due to Pain,Slow Progress due to Medical Issues,Slow Progress due to Activity Tolerance Assessment Summary Pt too fatigued for OOB mobility but demonstrated good tolerance for BLE exercises while supine to facilitate blood flow and strengthening. Pt would like to improve mobility and would benefit from continued skilled therapy . Goals Bed Mobility Goal Independent Transfer Goal Contact Guard Assistance Gait Goal Contact Guard Assistance Gait Distance 20 Days to Meet Goals 7 Frequency of Treatment Frequency Of Treatment Once a Day Treatment Plan Physical Therapy Treatment Plan Bed Mobility Training,Transfer Training,Gait Training, Therapeutic Exercise,Balance Retraining,Discharge Planning Other Recommendations and Next Treatment bed mob, transfers, gait if Focus able tolerate using FWW, Continue safety education. Weight Bearing Status Weight Bearing Status Full Weight Bearing Recommendations To Nursing Amount of Assist Needed 2 Person Assist Discharge Recommendations PT Discharge Recommendations SNF Rehab Transportation Needs at Discharge Private Vehicle,Wheelchair/ Cabulance
[2023-03-15] MEDS: HYDROCODONE/ACET 10/325 TABLET 1 TAB PO ×2 (15:09→20:16)
--- NOTE | 2023-03-15 16:56 | PM.PN.1 ---
Subjective Subjective Date Patient Seen: 03/15/23 Time Patient Seen: 08:00 Interval history: No new complaints. Exam Vital Signs (past 8 hours): - 03/15/23 10:48 Temperature 97.6 F Pulse Rate 60 Respiratory Rate 18 Blood Pressure 117/59 L Pulse Oximetry 98 Oxygen Flow Rate 0 Oxygen Delivery Method Room Air Oxygen Flow Rate 0 Narrative Exam Narrative: GEN: no acute distress, chronically ill appearing Objective Labs 03/07/23 09:20 03/07/23 09:20 PFSH Medical History Cerebrovascular accident Chronic GERD Dementia Hyperlipidemia Hypertension Social History household members: children Smoking Status: Former smoker alcohol intake: current Assessment & Plan Assessment & Plan narrative: 1. Unstable discharge for a debilitated elderly male with multiple medical comorbidities Patient remains here under observation status while an appropriate disposition is identified. Placement efforts ongoing. 2. History of stroke with left-sided weakness, POA and stable. ? chronic, stable 3. Coronary artery disease, POA and stable. Previous stenting.? No acute symptoms.? Continue home meds 4. Hypertension, POA and stable. Remains normotensive.? Continue usual home meds. 5. Dementia, POA and stable. ?slums assessment performed last month resulted in a 21/30, consistent with mild cognitive deficits. 6. Depression, POA and stable. Continue Zoloft 7. Hypothyroidism, POA and stable. TSH 0.02 with normal T4 on 03/07. Will hold synthroid and recheck TSH in 1 week. 8. Insomnia Trazodone nightly ordered plus temazepam PRN Code status DNR/DNI Time Spent With Patient Time with patient: less than 30 minutes Quality VTE Deep Vein Thrombosis/Pulmonary Embolism Present on Admission: No
[2023-03-15 19:00] VITALS: BP 110/62; PULSE 62; RESP 16; TEMP 36.7; O2SAT 98
[2023-03-15] MEDS: TRAZODONE 50 MG TABLET 100 MG PO (20:16)
[2023-03-16] MEDS: HYDROCODONE/ACET 10/325 TABLET 1 TAB PO ×3 (00:08→17:44)
[2023-03-16] MEDS: LEVOTHYROXINE 75 MCG TABLET 150 MCG PO (05:49)
[2023-03-16 07:00] VITALS: BP 110/58; PULSE 54; RESP 14; TEMP 36.6; O2SAT 96
--- NOTE | 2023-03-16 08:09 | CM.DPNOTE ---
Placement and Guardianship Efforts Communication continues between this CM team, [employer] group, court visitor Breezy and [facility] Clinical Office Technician Reanna Woody; discussing patient's Medicaid application and the efforts towards securing guardianship. On Thursday03.13.23, this AUTOMATIC PATTERN EDGER and court visitor Breezy completed the remainder of patient's [facility] LTC application with new financial documentation provided by Deborah diaz (obtained by [email or web address]). The completed and signed application was faxed to [phone] with three months of bank statements, escrow and title docs from the sale of patient's home in [place] in 2020. Meanwhile, this AUTOMATIC PATTERN EDGER facilitated a conversation by phone between patient and potential guardian Keesha Trejo# [phone] email : [email or web address] which went very smoothly Patient and Keesha were in good spirits and patient admitted he wanted to be taken care of and would consider moving closer to [place] if an AFH could be secured there, closer to Keesha (who lives and serves [place]) At the close of business day Thursday03.13.23, Keesha anticipated accepting patient as a client however next step would be communication between Keehsa's legal curyung and Deborah re contracts and potential advancement of her rate, fees etc. This AUTOMATIC PATTERN EDGER alerted Deborah and administrators of the progress made that day JW
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
[2023-03-16] MEDS: GABAPENTIN 100 MG CAPSULE PO ×2 (09:08→21:11)
[2023-03-16] MEDS: DOCUSATE 100 MG CAPSULE PO (09:08)
--- NOTE | 2023-03-16 14:24 | PT.IPTN ---
Current Diagnoses Weakness (12/14/22) Physical Therapy Treatment Note M2 PT-IP Current Condition Start: 12/15/22 09:27 Freq: NEEDED Status: Active Protocol: Document 03/15/23 16:35 DLM (Rec: 03/15/23 16:35 DLM [id number]) Physical Therapy Current Condition Current Condition Evaluation Date 03/11/23 Treatment Diagnosis Weakness, impaired gait Onset Date 12/14/22 M3 PT-IP Subjective Start: 12/15/22 09:27 Freq: NEEDED Status: Active Protocol: Document 03/16/23 14:24 AW (Rec: 03/16/23 15:04 AW [id number]) Subjective Physical Therapy Visit Type Type Treatment Note Visit Start Time 14:08 Visit Stop Time 14:24 Total Visit Minutes 16 Number of REHABILITATION COUNSELLOR Visits 0 Physical Therapy Visit Comments Patient Comments Pt complains of bilateral heel pain on the posterior aspect, suspects it may limit his standing tolerance. Patient Goals Practice transfers M4 PT-IP Mobility and Gait Start: 12/15/22 09:27 Freq: NEEDED Status: Active Protocol: Document 03/16/23 14:24 AW (Rec: 03/16/23 15:04 AW [id number]) PT-Bed Mobility Assessment Supine to Sit Supine to Sit Minimal Assistance,Head of Bed Elevated Sit to Supine Sit to Supine Standby Assistance,1 Person Assistance Scooting Scooting to Edge of Bed Contact Guard Assistance PT-Transfer Assessment Sit to and From Stand Sit to and from Stand Moderate Assistance,1 Person Assistance,Use of Upper Extremities Equipment Transfer Assistive Device Gait Belt,Front Wheeled Walker Orthotic/Prosthetic Devices or Brace: No Transfers Transfer Destination Bed,Chair Transfer Technique Stand Step Pivot Transfer Ability Level of Assist Minimal Assistance,Moderate Assistance,1 Person Assistance ,Use of Upper Extremities Comments Mobility Comments Pt very pleasant and agreeable to PT but worried that heel pain may be a factor. Min A to sit up EOB. Pt has good midline awareness in sitting. Mod A to stand from the bed with PT stabilizing the walker as pt pulled. In standing, pt had no significant retro lean but was generally unsteady, requiring CGA to min A at all times while standing in walker frame. He transferred to the chair, walking 4-5 feet with FWW to do so. Transfer training consisted of instruction in hand placement to ease transition from sitting <> standing but pt's fear of falling is a barrier to carryover. Pt rested briefly and then requested return to bed due to heel pain . Slightly improved transfer technique on return trip. Gait Assessment Gait Gait Assistance Required: Minimum Assistance,1 Person Assist Distance (Feet) 5 Assistive Devices Assistive Device Gait Belt,Front Wheeled Walker Orthotic/Prosthetic Devices or Brace: No Gait Deviations General Gait Pattern Antalgic,Decreased Stride Length,Decreased Feet Clearance,Lateral Trunk Lean, Narrow Based Gait,Step-to Gait Factors Limiting Gait Function Factors Limiting Gait Function Decreased Activity Tolerance, Decreased Strength, Incoordination,Limited Range of Motion,Pain,Poor Balance Comments Gait Comments Steps taken during transfers today. Pt refused gait progression secondary to heel pain. PT-Balance Assessment Sitting Balance and Reactions Static Sitting Balance Ability Good Dynamic Sitting Balance Ability Fair Standing Balance and Reactions Static Standing Balance Ability Poor Dynamic Standing Balance Ability Poor Device Used FWW Comments Other Balance Tests/Deviations/Treatment Pt able to housing quality standard inspector walker : frame with less assist today. Seems to have improved awareness and facility with weight shifting, better righting reactions. M5 PT-IP Objective Assessments Start: 12/15/22 09:27 Freq: NEEDED Status: Active Protocol: Document 03/11/23 11:01 SAK (Rec: 03/11/23 11:18 SAK [id number]) Orientation Orientation/Cognition Level of Alertness Alert Orientation Name,Age,Place,Situation Language Function Ability No Deficits Noted Safety Awareness Understands Safety Issues Memory Description Short Term Impaired Gross Range of Motion Upper Extremity ROM Assessment Within Functional Limits Lower Extremity ROM Assessment Bilaterally Impaired Impairments lacking full knee extension in sitting approx 30 deg from straight, ankle df to 0 hilda Strength Upper Extremity Strength Assessment Within Functional Limits Lower Extremity Strength Hip flex 3-/5 Knee ext right 3-/5, left 2+/5, flex 4-/5 right, 3-/5 left Ankle 4/5 right, df 4-/5 left, pf 3/ 5 left M6 PT-IP Treatment Start: 12/15/22 09:27 Freq: NEEDED Status: Active Protocol: Document 03/16/23 14:24 AW (Rec: 03/16/23 15:04 AW [id number]) Physical Therapy Treatment Exercises Exercises Ankle Pumps,Gluteal Sets,Quad Sets,Straight Leg Raises Other Treatments Other Treatment Performed Ther ex completed pre-OOB activity. M7 PT-IP Assessment and Plan Start: 12/15/22 09:27 Freq: NEEDED Status: Active Protocol: Document 03/16/23 14:24 AW (Rec: 03/16/23 15:04 AW [id number]) PT Summary Assessment and Plan Potential Rehabilitation Potential Fair Summary Impairments ROM,Strength,Balance,Gait Progress Towards Goals Slow Progress due to Pain,Slow Progress due to Medical Issues,Slow Progress due to Activity Tolerance Assessment Summary Pt eager to keep his strength up but not wanting to walk much today due to heel pain. Pt speaks highly of the therapy team and motivated to continue progressing. PT notes improved righting reactions during standing and walking activities this date. Continue to recommend SNF rehab at discharge for 02/02 assist and continued rehab activiities. Goals Bed Mobility Goal Independent Transfer Goal Contact Guard Assistance Gait Goal Contact Guard Assistance Gait Distance 20 Days to Meet Goals 7 Frequency of Treatment Frequency Of Treatment Once a Day Treatment Plan Physical Therapy Treatment Plan Bed Mobility Training,Transfer Training,Gait Training, Therapeutic Exercise,Balance Retraining,Discharge Planning Other Recommendations and Next Treatment bed mob, transfers, gait if Focus able tolerate using FWW, Continue safety education. Weight Bearing Status Weight Bearing Status Full Weight Bearing Recommendations To Nursing Amount of Assist Needed 2 Person Assist Discharge Recommendations PT Discharge Recommendations SNF Rehab Transportation Needs at Discharge Private Vehicle,Wheelchair/ Cabulance
--- NOTE | 2023-03-16 15:31 | P.PN_ITS ---
Subjective Subjective Date Patient Seen: 03/16/23 Time Patient Seen: 08:00 Interval history: No new complaints. Exam Vital Signs (past 8 hours): Oxygen Delivery Method Room Air Oxygen Flow Rate 0 Narrative Exam Narrative: GEN: no acute distress, chronically ill appearing Objective Labs 03/07/23 09:20 03/07/23 09:20 [facility] Medical History Cerebrovascular accident Chronic GERD Dementia Hyperlipidemia Hypertension Social History household members: children Smoking Status: Former smoker alcohol intake: current Assessment & Plan Assessment & Plan narrative: 1. Unstable discharge for a debilitated elderly male with multiple medical co morbidities Patient remains here under observation status while an appropriate disposition is identified. Placement efforts ongoing. 2. History of stroke with left-sided weakness, POA and stable. ? chronic, stable 3. Coronary artery disease, POA and stable. Previous stenting.? No acute symptoms.? Continue home meds 4. Hypertension, POA and stable. Remains normotensive.? Continue usual home meds. 5. Dementia, POA and stable. ?slums assessment performed last month resulted in a 21/30, consistent with mild cognitive deficits. 6. Depression, POA and stable. Continue Zoloft 7. Hypothyroidism, POA and stable. TSH 0.02 with normal T4 on 03/07. Will hold synthroid and recheck TSH in 1 week. 8. Insomnia Trazodone nightly ordered plus temazepam PRN Code status DNR/DNI Time Spent With Patient Time with patient: less than 30 minutes Quality VTE Deep Vein Thrombosis/Pulmonary Embolism Present on Admission: No
[2023-03-16 19:00] VITALS: BP 119/60; PULSE 65; RESP 16; TEMP 36.6; O2SAT 98
[2023-03-16] MEDS: TRAZODONE 50 MG TABLET 100 MG PO (21:11)
[2023-03-16] MEDS: METOPROLOL IR 25 MG TABLET 12.5 MG PO (21:11)
[2023-03-17] MEDS: HYDROCODONE/ACET 10/325 TABLET 1 TAB PO ×4 (02:07→20:11)
[2023-03-17] MEDS: LEVOTHYROXINE 75 MCG TABLET 150 MCG PO (06:02)
[2023-03-17 07:00] VITALS: BP 113/55; PULSE 56; RESP 14; TEMP 36.5; O2SAT 98
[2023-03-17] MEDS: GABAPENTIN 100 MG CAPSULE PO ×2 (08:18→20:10)
[2023-03-17] MEDS: METOPROLOL IR 25 MG TABLET 12.5 MG PO (08:18)
--- NOTE | 2023-03-17 10:05 | PT.IPTN ---
Current Diagnoses Weakness (12/14/22) Physical Therapy Treatment Note M2 PT-IP Current Condition Start: 12/15/22 09:27 Freq: NEEDED Status: Active Protocol: Document 03/15/23 16:35 DLM (Rec: 03/15/23 16:35 DLM [id number]) Physical Therapy Current Condition Current Condition Evaluation Date 03/11/23 Treatment Diagnosis Weakness, impaired gait Onset Date 12/14/22 M3 PT-IP Subjective Start: 12/15/22 09:27 Freq: NEEDED Status: Active Protocol: Document 03/17/23 11:36 TS (Rec: 03/17/23 11:46 TS [id number]) Subjective Physical Therapy Visit Type Type Treatment Note Visit Start Time 10:05 Visit Stop Time 10:28 Total Visit Minutes 23 Number of INSTALLER METAL FLOORING Visits 1 Physical Therapy Visit Comments Patient Comments Pt continues to report pain in heels, is agreeable to PT. M4 PT-IP Mobility and Gait Start: 12/15/22 09:27 Freq: NEEDED Status: Active Protocol: Document 03/17/23 11:36 TS (Rec: 03/17/23 11:46 TS [id number]) PT-Bed Mobility Assessment Supine to Sit Supine to Sit Minimal Assistance Sit to Supine Sit to Supine Standby Assistance Scooting Scooting to Edge of Bed Contact Guard Assistance Scooting Up and Down in Bed Independent PT-Transfer Assessment Comments Mobility Comments Pt agreeable to sit up EOB and perform bed exerises. Pt performed exercise of glute sets/bridges, SLR, Hip ABD, heel slides and ankle pumps. He sat EOB with Carlin for uprighting trunk and with use of handrail. He scooted to EOB CGA w/handrail. He performed knee flex/ext sitting EOB with use of handrail. Sit to supine SBA, pt scooted to HOB Ind with use of B handrails. Pt was left bakc in bed, call light within reach. Gait Assessment Comments Gait Comments Not this sesssion PT-Balance Assessment Sitting Balance and Reactions Static Sitting Balance Ability Good Dynamic Sitting Balance Ability Fair M5 PT-IP Objective Assessments Start: 12/15/22 09:27 Freq: NEEDED Status: Active Protocol: Document 03/11/23 11:01 SAK (Rec: 03/11/23 11:18 SAK [id number]) Orientation Orientation/Cognition Level of Alertness Alert Orientation Name,Age,Place,Situation Language Function Ability No Deficits Noted Safety Awareness Understands Safety Issues Memory Description Short Term Impaired Gross Range of Motion Upper Extremity ROM Assessment Within Functional Limits Lower Extremity ROM Assessment Bilaterally Impaired Impairments lacking full knee extension in sitting approx 30 deg from straight, ankle df to 0 hilda Strength Upper Extremity Strength Assessment Within Functional Limits Lower Extremity Strength Hip flex 3-/5 Knee ext right 3-/5, left 2+/5, flex 4-/5 right, 3-/5 left Ankle 4/5 right, df 4-/5 left, pf 3/ 5 left M6 PT-IP Treatment Start: 12/15/22 09:27 Freq: NEEDED Status: Active Protocol: Document 03/17/23 11:36 TS (Rec: 03/17/23 11:46 TS [id number]) Physical Therapy Treatment Exercises Exercises Ankle Pumps,Gluteal Sets,Heel Slides,Straight Leg Raises, Supine Hip Abduction,Seated Knee Flexion/Extension Other Treatments Other Treatment Performed See mobility comments. M7 PT-IP Assessment and Plan Start: 12/15/22 09:27 Freq: NEEDED Status: Active Protocol: Document 03/17/23 11:36 TS (Rec: 03/17/23 11:46 TS [id number]) PT Summary Assessment and Plan Potential Rehabilitation Potential Fair Summary Impairments ROM,Strength,Balance,Gait Progress Towards Goals Slow Progress due to Pain,Slow Progress due to Medical Issues,Slow Progress due to Activity Tolerance Assessment Summary Pt continues to have pain in B heels and was agreeable to sit EOB but did not want to perform OOB mobility. He continues to perform his bed ex and reports he is doing them all the time on his own. He has made some progress with L Hip ABD exercise with increased lift from bed and increased hip ABD. LLE is weak from previous stroke and has decreased strength and ROM. He required Carlin for sitting up in bed, demonstrates good carryover of technique from previous session. PT continues to recommend SNF rehab at this time. Pt is motivated to improve and work with PT. Goals Bed Mobility Goal Independent Transfer Goal Contact Guard Assistance Gait Goal Contact Guard Assistance Gait Distance 20 Days to Meet Goals 7 Frequency of Treatment Frequency Of Treatment Once a Day Treatment Plan Physical Therapy Treatment Plan Bed Mobility Training,Transfer Training,Gait Training, Therapeutic Exercise,Balance Retraining,Discharge Planning Other Recommendations and Next Treatment bed mob, transfers, gait if Focus able tolerate using FWW, Continue safety education. Weight Bearing Status Weight Bearing Status Full Weight Bearing Recommendations To Nursing Amount of Assist Needed 1 Person Assist Discharge Recommendations PT Discharge Recommendations SNF Rehab Transportation Needs at Discharge Private Vehicle,Wheelchair/ Cabulance
--- NOTE | 2023-03-17 16:31 | PM.PN.1 ---
Subjective Subjective Interval history: No new complaints. Exam Vital Signs (past 8 hours): Oxygen Delivery Method Room Air Oxygen Flow Rate 0 Narrative Exam Narrative: GEN: no acute distress, chronically ill appearing Objective Labs 03/07/23 09:20 03/07/23 09:20 [facility] Medical History Cerebrovascular accident Chronic GERD Dementia Hyperlipidemia Hypertension Social History household members: children Smoking Status: Former smoker alcohol intake: current Assessment & Plan Assessment & Plan narrative: 1. Unstable discharge for a debilitated elderly male with multiple medical comorbidities Patient remains here under observation status while an appropriate disposition is identified. Placement efforts ongoing. 2. History of stroke with left-sided weakness, POA and stable. ? chronic, stable 3. Coronary artery disease, POA and stable. Previous stenting.? No acute symptoms.? Continue home meds 4. Hypertension, POA and stable. Remains normotensive.? Continue usual home meds. 5. Dementia, POA and stable. ?slums assessment performed last month resulted in a 21/30, consistent with mild cognitive deficits. 6. Depression, POA and stable. Continue Zoloft 7. Hypothyroidism, POA and stable. TSH 0.02 with normal T4 on 03/07. Will hold synthroid and recheck TSH in 1 week. 8. Insomnia Trazodone nightly ordered plus temazepam PRN Code status DNR/DNI Time Spent With Patient Time with patient: less than 30 minutes Quality VTE Deep Vein Thrombosis/Pulmonary Embolism Present on Admission: No
[2023-03-17 20:00] VITALS: BP 115/54; PULSE 58; RESP 17; TEMP 36.7; O2SAT 96
[2023-03-17] MEDS: TRAZODONE 50 MG TABLET 100 MG PO (20:10)
[2023-03-18] MEDS: LEVOTHYROXINE 75 MCG TABLET 150 MCG PO (06:30)
[2023-03-18] MEDS: HYDROCODONE/ACET 10/325 TABLET 1 TAB PO ×3 (06:30→20:49)
[2023-03-18] MEDS: GABAPENTIN 100 MG CAPSULE PO ×2 (10:01→20:49)
[2023-03-18] MEDS: METOPROLOL IR 25 MG TABLET 12.5 MG PO ×2 (10:02→20:49)
[2023-03-18 10:08] VITALS: BP 120/56; PULSE 53; RESP 16; TEMP 36.6; O2SAT 98
--- NOTE | 2023-03-18 13:29 | PM.PN.1 ---
Subjective Subjective Interval history: No new complaints. Exam Vital Signs (past 8 hours): - 03/18/23 10:08 Temperature 97.9 F Pulse Rate 53 L Respiratory Rate 16 Blood Pressure 120/56 L Pulse Oximetry 98 Oxygen Flow Rate 0 Oxygen Delivery Method Room Air Oxygen Flow Rate 0 Narrative Exam Narrative: GEN: no acute distress, chronically ill appearing Objective Labs 03/07/23 09:20 03/07/23 09:20 PFSH Medical History Cerebrovascular accident Chronic GERD Dementia Hyperlipidemia Hypertension Social History household members: children Smoking Status: Former smoker alcohol intake: current Assessment & Plan Assessment & Plan narrative: 1. Unstable discharge for a debilitated elderly male with multiple medical comorbidities Patient remains here under observation status while an appropriate disposition is identified. Placement efforts ongoing. 2. History of stroke with left-sided weakness, POA and stable. ? chronic, stable 3. Coronary artery disease, POA and stable. Previous stenting.? No acute symptoms.? Continue home meds 4. Hypertension, POA and stable. Remains normotensive.? Continue usual home meds. 5. Dementia, POA and stable. ?slums assessment performed last month resulted in a 21/30, consistent with mild cognitive deficits. 6. Depression, POA and stable. Continue Zoloft 7. Hypothyroidism, POA and stable. TSH 0.02 with normal T4 on 03/07. Will hold synthroid and recheck TSH in 1 week. 8. Insomnia Trazodone nightly ordered plus temazepam PRN Code status DNR/DNI Time Spent With Patient Time with patient: less than 30 minutes Quality VTE Deep Vein Thrombosis/Pulmonary Embolism Present on Admission: No
--- NOTE | 2023-03-18 15:18 | PT.IPTN ---
Current Diagnoses Weakness (12/14/22) Physical Therapy Treatment Note M2 PT-IP Current Condition Start: 12/15/22 09:27 Freq: NEEDED Status: Active Protocol: Document 03/15/23 16:35 DLM (Rec: 03/15/23 16:35 DLM [id number]) Physical Therapy Current Condition Current Condition Evaluation Date 03/11/23 Treatment Diagnosis Weakness, impaired gait Onset Date 12/14/22 M3 PT-IP Subjective Start: 12/15/22 09:27 Freq: NEEDED Status: Active Protocol: Document 03/18/23 15:50 TS (Rec: 03/18/23 16:02 TS [id number]) Subjective Physical Therapy Visit Type Type Treatment Note Visit Start Time 15:18 Visit Stop Time 15:48 Total Visit Minutes 30 Number of WILDLAND FIREFIGHTER Visits 2 Physical Therapy Visit Comments Patient Comments Pt continues to report pain in heels, received some pain medication eariler in the day. Has new complaint of pain in 2nd digit on L foot, pt agreeable to PT. M4 PT-IP Mobility and Gait Start: 12/15/22 09:27 Freq: NEEDED Status: Active Protocol: Document 03/18/23 15:50 TS (Rec: 03/18/23 16:02 TS [id number]) PT-Bed Mobility Assessment Supine to Sit Supine to Sit Contact Guard Assistance Sit to Supine Sit to Supine Standby Assistance Scooting Scooting to Edge of Bed Standby Assistance Scooting Up and Down in Bed Independent PT-Transfer Assessment Sit to and From Stand Sit to and from Stand Standby Assistance,1 Person Assistance Equipment Transfer Assistive Device Gait Belt,Front Wheeled Walker Orthotic/Prosthetic Devices or Brace: No Comments Mobility Comments Pt found resting in bed, agreeable to bed ex and practicing standing from bed. Pt performed ex of ankle pumps , heel slides, SLR, hip ABD and bridge. Pt has some carryover of exercises but contiues to require some cueing. Supine to sit CGA with use of handrails, pt requires extra time to sit up. Sit to stand x5 from EOB SBA w/FWW, provided cues for feet flat, weight forward and pushing through heels. Sit to supine SBA, pt scooted to HOB SBA with use of B handrails. Pt was left in bed with call light nearby, all needs met, bed alarm on. Gait Assessment Comments Gait Comments Not this session. PT-Balance Assessment Sitting Balance and Reactions Static Sitting Balance Ability Good Dynamic Sitting Balance Ability Fair Standing Balance and Reactions Static Standing Balance Ability Fair Device Used FWW M5 PT-IP Objective Assessments Start: 12/15/22 09:27 Freq: NEEDED Status: Active Protocol: Document 03/11/23 11:01 SAK (Rec: 03/11/23 11:18 SAK [id number]) Orientation Orientation/Cognition Level of Alertness Alert Orientation Name,Age,Place,Situation Language Function Ability No Deficits Noted Safety Awareness Understands Safety Issues Memory Description Short Term Impaired Gross Range of Motion Upper Extremity ROM Assessment Within Functional Limits Lower Extremity ROM Assessment Bilaterally Impaired Impairments lacking full knee extension in sitting approx 30 deg from straight, ankle df to 0 hilda Strength Upper Extremity Strength Assessment Within Functional Limits Lower Extremity Strength Hip flex 3-/5 Knee ext right 3-/5, left 2+/5, flex 4-/5 right, 3-/5 left Ankle 4/5 right, df 4-/5 left, pf 3/ 5 left M6 PT-IP Treatment Start: 12/15/22 09:27 Freq: NEEDED Status: Active Protocol: Document 03/18/23 15:50 TS (Rec: 03/18/23 16:02 TS [id number]) Physical Therapy Treatment Exercises Exercises Ankle Pumps,Gluteal Sets,Heel Slides,Straight Leg Raises, Supine Hip Abduction Other Treatments Other Treatment Performed See mobility comments. M7 PT-IP Assessment and Plan Start: 12/15/22 09:27 Freq: NEEDED Status: Active Protocol: Document 03/18/23 15:50 TS (Rec: 03/18/23 16:02 TS [id number]) PT Summary Assessment and Plan Potential Rehabilitation Potential Fair Summary Impairments ROM,Strength,Balance,Gait Progress Towards Goals Slow Progress due to Pain,Slow Progress due to Medical Issues,Slow Progress due to Activity Tolerance Assessment Summary Pt continues to be motivated to participate with PT. He continues to report pain in B heels and new complaint of pain in 2nd toe on L foot. He continues to perform exercises listed above, has some carryover but still requires cueing. He performed sit to stand x5 w/FWW, pt progressed to SBA with max cueing for sequencing. PT continues to recommend SNF. Goals Bed Mobility Goal Independent Transfer Goal Contact Guard Assistance Gait Goal Contact Guard Assistance Gait Distance 20 Days to Meet Goals 7 Frequency of Treatment Frequency Of Treatment Once a Day Treatment Plan Physical Therapy Treatment Plan Bed Mobility Training,Transfer Training,Gait Training, Therapeutic Exercise,Balance Retraining,Discharge Planning Other Recommendations and Next Treatment bed mob, transfers, gait if Focus able tolerate using FWW, Continue safety education. Weight Bearing Status Weight Bearing Status Full Weight Bearing Recommendations To Nursing Amount of Assist Needed 1 Person Assist Discharge Recommendations PT Discharge Recommendations SNF Rehab Transportation Needs at Discharge Private Vehicle,Wheelchair/ Cabulance
--- NOTE | 2023-03-18 15:52 | CM.DPC ---
Addendum entered by CHARITY Bradshaw 03/18/23 16:11: ADD: Erlinda with [facility] is also submitting/filing a motion with the driver engineer requesting to freeze pt's bank account as it has been determined with the [employer] records that pt's Social Security checks that are automatically deposited into pt's bank account has continued to be transferred to another account during his hospitalization admission. This would allow pt's personal monthly payments to be secured to go towards his LTC needs and costs and personal expenses. BF Original Note: DCP Cont: JEOVANY attended virtual meeting this morning with Erlinda from [facility] legal team, Director Jalyn, Quality/Risk Yahir and FINANCIAL ASSISTANT Jeanie for weekly update from legal team and Erlinda updated that pt's upcoming Mar 20 [address] date has been postponed until Apr 03 as currently today no Professional Guardian secured for pt. Per Erlinda, professional guardian Keesha De La Cruz reached out to her and would be willing to be pt's Guardian if [facility] was willing to pay her court fees/etc of $11,000. Before Guardian can be approved by the court, court visitor Breezy also has to submit his report to the courts showing the need for Guardianship and Breezy will need to inform pt of his presentation of his report to the courts prior to court review. Plan is for the team to await [facility] to determine if pt will qualify for Medicaid LTC before considering paying costs of Professional Guardian as pt will likely need Medicaid to help with placement at a facility. JEOVANY and Director Jalyn left vm and email with Reanna Woody at [facility] ([phone]) and The assigned Public Endoscopy Technican is Radha Schneider: [phone] requesting an update with the review of pt's Medicaid application and urgent/expedited review to determine if pt is approved or denied Medicaid. CHARITY Bradshaw
[2023-03-18 19:00] VITALS: BP 121/58; PULSE 62; RESP 20; TEMP 36.3; O2SAT 97
[2023-03-18] MEDS: TRAZODONE 50 MG TABLET 100 MG PO (20:49)
[2023-03-18] MEDS: TEMAZEPAM 15 MG CAPSULE PO (20:49)
[2023-03-19 07:00] VITALS: BP 126/56; PULSE 60; RESP 18; TEMP 36.2; O2SAT 97
[2023-03-19] MEDS: LEVOTHYROXINE 75 MCG TABLET 150 MCG PO (07:36)
[2023-03-19] MEDS: GABAPENTIN 100 MG CAPSULE PO ×2 (09:50→20:21)
[2023-03-19] MEDS: HYDROCODONE/ACET 10/325 TABLET 1 TAB PO ×3 (09:50→18:35)
[2023-03-19] MEDS: METOPROLOL IR 25 MG TABLET 12.5 MG PO (09:51)
[2023-03-19] MEDS: DOCUSATE 100 MG CAPSULE PO (09:51)
--- NOTE | 2023-03-19 11:14 | PC.NURSE ---
pt c/o pain in his second toe on the left foot. States that the big toe is rubbing on it and it hurts. Upon assessing the toe noticed some redness but no open areas. Put barrier cream on both feet and placed allevyn dressing between big and second toe. Also placed bilateral foam booties on pt for reddened heals.
--- NOTE | 2023-03-19 11:35 | PT.IPTN ---
Current Diagnoses Weakness (12/14/22) Physical Therapy Treatment Note M2 PT-IP Current Condition Start: 12/15/22 09:27 Freq: NEEDED Status: Active Protocol: Document 03/15/23 16:35 DLM (Rec: 03/15/23 16:35 DLM [id number]) Physical Therapy Current Condition Current Condition Evaluation Date 03/11/23 Treatment Diagnosis Weakness, impaired gait Onset Date 12/14/22 M3 PT-IP Subjective Start: 12/15/22 09:27 Freq: NEEDED Status: Active Protocol: Document 03/19/23 12:42 TS (Rec: 03/19/23 12:50 TS [id number]) Subjective Physical Therapy Visit Type Type Treatment Note Visit Start Time 11:35 Visit Stop Time 12:00 Total Visit Minutes 25 Number of BOILING HOUSE HAND Visits 3 Physical Therapy Visit Comments Patient Comments Pt found resting in bed, foam heel protectors donned, pt continues to c/o pain in heels , agreeable to bed exercises but not OOB mobility. Therapy Pain Assessment Pain When Pain Assessed At Rest Pain Present Pain Present Pain Reported M4 PT-IP Mobility and Gait Start: 12/15/22 09:27 Freq: NEEDED Status: Active Protocol: Document 03/19/23 12:42 TS (Rec: 03/19/23 12:50 TS [id number]) PT-Transfer Assessment Comments Mobility Comments Pt agreed to bed exercises of glute sets, heel slides, SLR, Hip ABD/ADD and ankle pumps. Pt has some complaints of pain in heels when performing exercises. Pt was educated on the importance to performing exercises on own and for OOB mobility. Gait Assessment Comments Gait Comments Not this session. M5 PT-IP Objective Assessments Start: 12/15/22 09:27 Freq: NEEDED Status: Active Protocol: Document 03/11/23 11:01 SAK (Rec: 03/11/23 11:18 SAK [id number]) Orientation Orientation/Cognition Level of Alertness Alert Orientation Name,Age,Place,Situation Language Function Ability No Deficits Noted Safety Awareness Understands Safety Issues Memory Description Short Term Impaired Gross Range of Motion Upper Extremity ROM Assessment Within Functional Limits Lower Extremity ROM Assessment Bilaterally Impaired Impairments lacking full knee extension in sitting approx 30 deg from straight, ankle df to 0 hilda Strength Upper Extremity Strength Assessment Within Functional Limits Lower Extremity Strength Hip flex 3-/5 Knee ext right 3-/5, left 2+/5, flex 4-/5 right, 3-/5 left Ankle 4/5 right, df 4-/5 left, pf 3/ 5 left M6 PT-IP Treatment Start: 12/15/22 09:27 Freq: NEEDED Status: Active Protocol: Document 03/19/23 12:42 TS (Rec: 03/19/23 12:50 TS [id number]) Physical Therapy Treatment Exercises Exercises Ankle Pumps,Gluteal Sets,Heel Slides,Straight Leg Raises, Supine Hip Abduction Other Treatments Other Treatment Performed See mobility comments. M7 PT-IP Assessment and Plan Start: 12/15/22 09:27 Freq: NEEDED Status: Active Protocol: Document 03/19/23 12:42 TS (Rec: 03/19/23 12:50 TS [id number]) PT Summary Assessment and Plan Potential Rehabilitation Potential Fair Summary Impairments ROM,Strength,Balance,Gait Progress Towards Goals Slow Progress due to Pain,Slow Progress due to Medical Issues,Slow Progress due to Activity Tolerance Assessment Summary Pt continues to make slow progress with his mobility. Pt continues to c/o pain in B heels, pt had foam protectors donned prior to session. He continues to be agreeable to bed exercises but not for OOB mobility due to pain in heels. Pt was educated on the importance of continuing to do exercises and for OOB mobility. PT continues to recommend SNF rehab. Goals Bed Mobility Goal Independent Transfer Goal Contact Guard Assistance Gait Goal Contact Guard Assistance Gait Distance 20 Days to Meet Goals 7 Frequency of Treatment Frequency Of Treatment Once a Day Treatment Plan Physical Therapy Treatment Plan Bed Mobility Training,Transfer Training,Gait Training, Therapeutic Exercise,Balance Retraining,Discharge Planning Other Recommendations and Next Treatment bed mob, transfers, gait if Focus able tolerate using FWW, Continue safety education. Weight Bearing Status Weight Bearing Status Full Weight Bearing Recommendations To Nursing Amount of Assist Needed 1 Person Assist Discharge Recommendations PT Discharge Recommendations SNF Rehab Transportation Needs at Discharge Private Vehicle,Wheelchair/ Cabulance
--- NOTE | 2023-03-19 14:22 | PM.PN.1 ---
Subjective Subjective Interval history: No new complaints. Exam Vital Signs (past 8 hours): - 03/19/23 07:00 Temperature 97.2 F L Pulse Rate 60 Respiratory Rate 18 Blood Pressure 126/56 L Pulse Oximetry 97 Oxygen Flow Rate 0 Oxygen Delivery Method Room Air Oxygen Flow Rate 0 Narrative Exam Narrative: GEN: no acute distress, chronically ill appearing Objective Labs 03/07/23 09:20 03/07/23 09:20 PFSH Medical History Cerebrovascular accident Chronic GERD Dementia Hyperlipidemia Hypertension Social History household members: children Smoking Status: Former smoker alcohol intake: current Assessment & Plan Assessment & Plan narrative: 1. Unstable discharge for a debilitated elderly male with multiple medical comorbidities Patient remains here under observation status while an appropriate disposition is identified. Placement efforts ongoing. 2. History of stroke with left-sided weakness, POA and stable. ? chronic, stable 3. Coronary artery disease, POA and stable. Previous stenting.? No acute symptoms.? Continue home meds 4. Hypertension, POA and stable. Remains normotensive.? Continue usual home meds. 5. Dementia, POA and stable. ?slums assessment performed last month resulted in a 21/30, consistent with mild cognitive deficits. 6. Depression, POA and stable. Continue Zoloft 7. Hypothyroidism, POA and stable. TSH 0.02 with normal T4 on 03/07. Will hold synthroid and recheck TSH in 1 week. 8. Insomnia Trazodone nightly ordered plus temazepam PRN Code status DNR/DNI Quality VTE Deep Vein Thrombosis/Pulmonary Embolism Present on Admission: No
--- NOTE | 2023-03-19 14:29 | PC.NURSE ---
Addendum entered by Honey Purcell R.N. 03/19/23 15:00: Son left and patient seemed upset- When asked about his visit patient stated f him, he's charging me $600 for rent and has been for three months. Also stated he talked to Esther in Care Management and she was going to look into it. Original Note: Son is at bedside visiting and watching television with patient.
[2023-03-19 20:00] VITALS: BP 126/57; PULSE 54; RESP 17; TEMP 36.6; O2SAT 97
[2023-03-19] MEDS: TEMAZEPAM 15 MG CAPSULE PO (20:21)
[2023-03-19] MEDS: TRAZODONE 50 MG TABLET 100 MG PO (20:21)
[2023-03-20] MEDS: TEMAZEPAM 15 MG CAPSULE PO ×2 (04:18→22:55)
[2023-03-20 08:10] VITALS: RESP 18
[2023-03-20 11:00] VITALS: BP 120/60; PULSE 56
[2023-03-20] MEDS: LEVOTHYROXINE 75 MCG TABLET 150 MCG PO (11:05)
[2023-03-20] MEDS: GABAPENTIN 100 MG CAPSULE PO ×2 (11:05→20:35)
[2023-03-20] MEDS: DOCUSATE 100 MG CAPSULE PO (11:09)
[2023-03-20 11:14] VITALS: TEMP 36.7
--- NOTE | 2023-03-20 11:40 | PM.PN.1 ---
Subjective Subjective Interval history: No new complaints. Exam Vital Signs (past 8 hours): - 03/20/23 08:10 03/20/23 11:00 03/20/23 11:14 Temperature 98.1 F Pulse Rate 56 L Respiratory Rate 18 Blood Pressure 120/60 Oxygen Delivery Method Room Air Oxygen Flow Rate 0 Narrative Exam Narrative: GEN: no acute distress, chronically ill appearing Objective Labs 03/07/23 09:20 03/07/23 09:20 PFSH Medical History Cerebrovascular accident Chronic GERD Dementia Hyperlipidemia Hypertension Social History household members: children Smoking Status: Former smoker alcohol intake: current Assessment & Plan Assessment & Plan narrative: 1. Unstable discharge for a debilitated elderly male with multiple medical comorbidities Patient remains here under observation status while an appropriate disposition is identified. Placement efforts ongoing. 2. History of stroke with left-sided weakness, POA and stable. ? chronic, stable 3. Coronary artery disease, POA and stable. Previous stenting.? No acute symptoms.? Continue home meds 4. Hypertension, POA and stable. Remains normotensive.? Continue usual home meds. 5. Dementia, POA and stable. ?slums assessment performed last month resulted in a 21/30, consistent with mild cognitive deficits. 6. Depression, POA and stable. Continue Zoloft 7. Hypothyroidism, POA and stable. TSH 0.02 with normal T4 on 03/07. Will hold synthroid and recheck TSH in 1 week. 8. Insomnia Trazodone nightly ordered plus temazepam PRN Code status DNR/DNI Quality VTE Deep Vein Thrombosis/Pulmonary Embolism Present on Admission: No
--- NOTE | 2023-03-20 12:51 | PT.IPTN ---
Current Diagnoses Weakness (12/14/22) Physical Therapy Treatment Note M2 PT-IP Current Condition Start: 12/15/22 09:27 Freq: NEEDED Status: Active Protocol: Document 03/15/23 16:35 DLM (Rec: 03/15/23 16:35 DLM [id number]) Physical Therapy Current Condition Current Condition Evaluation Date 03/11/23 Treatment Diagnosis Weakness, impaired gait Onset Date 12/14/22 M3 PT-IP Subjective Start: 12/15/22 09:27 Freq: NEEDED Status: Active Protocol: Document 03/20/23 13:11 TS (Rec: 03/20/23 13:31 TS [id number]) Subjective Physical Therapy Visit Type Type Treatment Note Visit Start Time 12:51 Visit Stop Time 13:11 Total Visit Minutes 20 Number of MICA MINER BLASTING Visits 4 Physical Therapy Visit Comments Patient Comments Pt found resting in bed, continues to c/o pain in B heels with foam heel protector on L foot, pt agreeable to OOB mobility. Therapy Pain Assessment Pain When Pain Assessed At Rest Pain Present Pain Present Pain Reported M4 PT-IP Mobility and Gait Start: 12/15/22 09:27 Freq: NEEDED Status: Active Protocol: Document 03/20/23 13:11 TS (Rec: 03/20/23 13:31 TS [id number]) PT-Bed Mobility Assessment Supine to Sit Supine to Sit Moderate Assistance Sit to Supine Sit to Supine Standby Assistance Scooting Scooting to Edge of Bed Contact Guard Assistance PT-Transfer Assessment Sit to and From Stand Sit to and from Stand Minimal Assistance Equipment Transfer Assistive Device Gait Belt,Front Wheeled Walker Orthotic/Prosthetic Devices or Brace: No Comments Mobility Comments Pt found resting in bed, is agreeable to OOB mobility this morning. Supine to sit ModA for uprighting trunk, pt uses RLe to assist LLE to EOB, required handheld assist and handrail to assist up to EOB. Pt scooted to EOB CGA with extra effort and some difficulty, cued pt for handrail assist. He performed sit to stand x2 Carlin w/FWW and c/o increasing pain in his heels. In standing pt has flexed posture with some tremoring in arms and legs. He attempted to ambulate but reported lightheadedness and requested back to bed. Pt was left back in bed with call light nearby, all needs met, RN notified. Gait Assessment Comments Gait Comments Not this session. PT-Balance Assessment Sitting Balance and Reactions Static Sitting Balance Ability Good Dynamic Sitting Balance Ability Fair Standing Balance and Reactions Static Standing Balance Ability Fair Device Used FWW M5 PT-IP Objective Assessments Start: 12/15/22 09:27 Freq: NEEDED Status: Active Protocol: Document 03/11/23 11:01 SAK (Rec: 03/11/23 11:18 SAK [id number]) Orientation Orientation/Cognition Level of Alertness Alert Orientation Name,Age,Place,Situation Language Function Ability No Deficits Noted Safety Awareness Understands Safety Issues Memory Description Short Term Impaired Gross Range of Motion Upper Extremity ROM Assessment Within Functional Limits Lower Extremity ROM Assessment Bilaterally Impaired Impairments lacking full knee extension in sitting approx 30 deg from straight, ankle df to 0 hilda Strength Upper Extremity Strength Assessment Within Functional Limits Lower Extremity Strength Hip flex 3-/5 Knee ext right 3-/5, left 2+/5, flex 4-/5 right, 3-/5 left Ankle 4/5 right, df 4-/5 left, pf 3/ 5 left M6 PT-IP Treatment Start: 12/15/22 09:27 Freq: NEEDED Status: Active Protocol: Document 03/19/23 12:42 TS (Rec: 03/19/23 12:50 TS [id number]) Physical Therapy Treatment Exercises Exercises Ankle Pumps,Gluteal Sets,Heel Slides,Straight Leg Raises, Supine Hip Abduction Other Treatments Other Treatment Performed See mobility comments. M7 PT-IP Assessment and Plan Start: 12/15/22 09:27 Freq: NEEDED Status: Active Protocol: Document 03/20/23 13:11 TS (Rec: 03/20/23 13:31 TS [id number]) PT Summary Assessment and Plan Potential Rehabilitation Potential Fair Summary Impairments ROM,Strength,Balance,Gait Progress Towards Goals Slow Progress due to Pain,Slow Progress due to Medical Issues,Slow Progress due to Activity Tolerance Assessment Summary Pt continues to c/o pain in B heels wtih greater pain in L than R. He is requiring increased assist for bed mobility this session to ModA for uprighting trunk to sitting position. He did progress to standing w/FWW this session x2 Carlin, c/o pain in heels and some lightheadedness, pt requested back to bed. Therapist educated pt on the importance of mobility and to continue to do bed exercises on own. Goals Bed Mobility Goal Independent Transfer Goal Contact Guard Assistance Gait Goal Contact Guard Assistance Gait Distance 20 Days to Meet Goals 7 Frequency of Treatment Frequency Of Treatment Once a Day Treatment Plan Physical Therapy Treatment Plan Bed Mobility Training,Transfer Training,Gait Training, Therapeutic Exercise,Balance Retraining,Discharge Planning Other Recommendations and Next Treatment bed mob, transfers, gait if Focus able tolerate using FWW, Continue safety education. Weight Bearing Status Weight Bearing Status Full Weight Bearing Recommendations To Nursing Amount of Assist Needed 1 Person Assist Discharge Recommendations PT Discharge Recommendations SNF Rehab Transportation Needs at Discharge Private Vehicle,Wheelchair/ Cabulance
--- NOTE | 2023-03-20 13:48 | CM.DPNOTE ---
Placement Multiple attempts since 03.13.23 to get [facility] application submitted had failed. Spoke to Helen Dewitt at [facility] customer service, discussed this difficulty. Emailed patient's completed and signed application with supportive docs to Helen, also faxed to two separate fax machines per her request Helen confirmed that she had received patient's application and had submitted it to the proper place, she further explained that it could take an additional 1-2 business days for the application to be processed and assigned Not[facility] leadership[facility], court visitor and Care management team of above JW
[2023-03-20 19:00] VITALS: BP 121/67; PULSE 67; RESP 16; TEMP 36.6; O2SAT 98
[2023-03-20] MEDS: TRAZODONE 50 MG TABLET 100 MG PO (20:35)
[2023-03-20] MEDS: METOPROLOL IR 25 MG TABLET 12.5 MG PO (20:41)
[2023-03-20] MEDS: HYDROCODONE/ACET 10/325 TABLET 1 TAB PO (22:55)
[2023-03-21] MEDS: LEVOTHYROXINE 75 MCG TABLET 150 MCG PO (05:30)
[2023-03-21] MEDS: HYDROCODONE/ACET 10/325 TABLET 1 TAB PO (05:30)
--- NOTE | 2023-03-21 07:26 | PM.PN.1 ---
Subjective Subjective Interval history: Patient awake until 2am last night. Says trazodone no longer working. Requesting ambien at night instead. Exam Vital Signs (past 8 hours): Oxygen Delivery Method Room Air Oxygen Flow Rate 0 Narrative Exam Narrative: GEN: no acute distress, chronically ill appearing Objective Labs 03/07/23 09:20 03/07/23 09:20 PFSH Medical History Cerebrovascular accident Chronic GERD Dementia Hyperlipidemia Hypertension Social History household members: children Smoking Status: Former smoker alcohol intake: current Assessment & Plan Assessment & Plan narrative: 1. Unstable discharge for a debilitated elderly male with multiple medical comorbidities Patient remains here under observation status while an appropriate disposition is identified. Placement efforts ongoing. 2. History of stroke with left-sided weakness, POA and stable. ? chronic, stable 3. Coronary artery disease, POA and stable. Previous stenting.? No acute symptoms.? Continue home meds 4. Hypertension, POA and stable. Remains normotensive.? Continue usual home meds. 5. Dementia, POA and stable. ?slums assessment performed last month resulted in a 21/30, consistent with mild cognitive deficits. 6. Depression, POA and stable. Continue Zoloft 7. Hypothyroidism, POA and stable. TSH 0.02 with normal T4 on 03/07. Will hold synthroid and recheck TSH prior to discharge. 8. Insomnia Failed trazodone. Changed to ambien 5mg nightly plus temazepam PRN Code status DNR/DNI Quality VTE Deep Vein Thrombosis/Pulmonary Embolism Present on Admission: No
[2023-03-21] MEDS: METOPROLOL IR 25 MG TABLET 12.5 MG PO ×2 (08:32→20:39)
[2023-03-21] MEDS: GABAPENTIN 100 MG CAPSULE PO ×2 (08:33→20:39)
[2023-03-21 09:31] VITALS: BP 119/70; PULSE 70; RESP 17; TEMP 36.6; O2SAT 99
--- NOTE | 2023-03-21 09:58 | PT.IPTN ---
Current Diagnoses Weakness (12/14/22) Physical Therapy Treatment Note M2 PT-IP Current Condition Start: 12/15/22 09:27 Freq: NEEDED Status: Active Protocol: Document 03/15/23 16:35 DLM (Rec: 03/15/23 16:35 DLM [id number]) Physical Therapy Current Condition Current Condition Evaluation Date 03/11/23 Treatment Diagnosis Weakness, impaired gait Onset Date 12/14/22 M3 PT-IP Subjective Start: 12/15/22 09:27 Freq: NEEDED Status: Active Protocol: Document 03/21/23 10:36 TS (Rec: 03/21/23 10:55 TS [id number]) Subjective Physical Therapy Visit Type Type Treatment Note Visit Start Time 09:58 Visit Stop Time 10:28 Total Visit Minutes 30 Number of TRAINING AND DEVELOPMENT DIRECTOR Visits 5 Physical Therapy Visit Comments Patient Comments Pt found resting in bed, reports he is doing his exercises and he is having decreased pain in his heels, pt agreeable to PT. Therapy Pain Assessment Pain When Pain Assessed During Mobility Pain Present Pain Present Pain Reported M4 PT-IP Mobility and Gait Start: 12/15/22 09:27 Freq: NEEDED Status: Active Protocol: Document 03/21/23 10:36 TS (Rec: 03/21/23 10:55 TS [id number]) PT-Bed Mobility Assessment Supine to Sit Supine to Sit Minimal Assistance Sit to Supine Sit to Supine Standby Assistance Scooting Scooting to Edge of Bed Contact Guard Assistance PT-Transfer Assessment Sit to and From Stand Sit to and from Stand Contact Guard Assistance Equipment Transfer Assistive Device Gait Belt,Front Wheeled Walker Orthotic/Prosthetic Devices or Brace: No Comments Mobility Comments Pt found resting in bed, agreeable to PT. He performed bed exercises of SLR, hip ABD, ankle pumps, glute sets and heel slides with minimal cueing this session. Supine to sit HOB elevated ~Carlin for uprighting trunk. Pt cued self for use of handrails, has some difficulty sitting up to EOB. He performed sit to stand x3 CGA w/FWW, cues were provided for weight forward. He ambulated 2x10' CGA with unsteady gait, pt toe touches on LLE, has increased pain when attempting to get LLE flat on ground. He requires verbal cues for FWW management and for when it is safe to sit. Pt was left back in bed, call light nearby, all needs met, pt requesting to speak to hospitalist. Gait Assessment Gait Gait Assistance Required: Contact Guard Assist,1 Person Assist Distance (Feet) 20 Assistive Devices Assistive Device Gait Belt,Front Wheeled Walker Orthotic/Prosthetic Devices or Brace: No Gait Deviations General Gait Pattern Antalgic,Decreased Stride Length,Decreased Feet Clearance,Lateral Trunk Lean, Narrow Based Gait,Step-to Gait Factors Limiting Gait Function Factors Limiting Gait Function Decreased Activity Tolerance, Decreased Strength, Incoordination,Limited Range of Motion,Pain,Poor Balance, Poor Safety Awareness Comments Gait Comments See mobility comments. PT-Balance Assessment Sitting Balance and Reactions Static Sitting Balance Ability Good Dynamic Sitting Balance Ability Fair Standing Balance and Reactions Static Standing Balance Ability Fair Dynamic Standing Balance Ability Poor Device Used FWW M5 PT-IP Objective Assessments Start: 12/15/22 09:27 Freq: NEEDED Status: Active Protocol: Document 03/11/23 11:01 SAK (Rec: 03/11/23 11:18 [facility] [id number]) Orientation Orientation/Cognition Level of Alertness Alert Orientation Name,Age,Place,Situation Language Function Ability No Deficits Noted Safety Awareness Understands Safety Issues Memory Description Short Term Impaired Gross Range of Motion Upper Extremity ROM Assessment Within Functional Limits Lower Extremity ROM Assessment Bilaterally Impaired Impairments lacking full knee extension in sitting approx 30 deg from straight, ankle df to 0 hilda Strength Upper Extremity Strength Assessment Within Functional Limits Lower Extremity Strength Hip flex 3-/5 Knee ext right 3-/5, left 2+/5, flex 4-/5 right, 3-/5 left Ankle 4/5 right, df 4-/5 left, pf 3/ 5 left M6 PT-IP Treatment Start: 12/15/22 09:27 Freq: NEEDED Status: Active Protocol: Document 03/21/23 10:36 TS (Rec: 03/21/23 10:55 TS [id number]) Physical Therapy Treatment Exercises Exercises Ankle Pumps,Gluteal Sets,Heel Slides,Straight Leg Raises, Supine Hip Abduction Other Treatments Other Treatment Performed See mobility comments. M7 PT-IP Assessment and Plan Start: 12/15/22 09:27 Freq: NEEDED Status: Active Protocol: Document 03/21/23 10:36 TS (Rec: 03/21/23 10:55 [id number]) PT Summary Assessment and Plan Potential Rehabilitation Potential Fair Summary Impairments ROM,Strength,Balance,Gait Progress Towards Goals Slow Progress due to Pain,Slow Progress due to Medical Issues,Slow Progress due to Activity Tolerance Assessment Summary Pt c/o less pain this morning in his heels, increases with wbering. He demonstrated good carryover of his exercises and could perform with minimal cueing. He progressed to gait for first time with PT this week. He ambulated 2x10' CGA, he toe touches on LLE making him unsteady and lacks good safety awareness. PT continues to recommend SNF. Goals Bed Mobility Goal Independent Transfer Goal Contact Guard Assistance Gait Goal Contact Guard Assistance Gait Distance 20 Days to Meet Goals 7 Frequency of Treatment Frequency Of Treatment Once a Day Treatment Plan Physical Therapy Treatment Plan Bed Mobility Training,Transfer Training,Gait Training, Therapeutic Exercise,Balance Retraining,Discharge Planning Other Recommendations and Next Treatment bed mob, transfers, gait if Focus able tolerate using FWW, Continue safety education. Weight Bearing Status Weight Bearing Status Full Weight Bearing Recommendations To Nursing Amount of Assist Needed 1 Person Assist Discharge Recommendations PT Discharge Recommendations SNF Rehab Transportation Needs at Discharge Private Vehicle,Wheelchair/ Cabulance
[2023-03-21 20:00] VITALS: BP 125/55; PULSE 58; RESP 19; TEMP 36.5; O2SAT 98
[2023-03-21] MEDS: ZOLPIDEM 5 MG TABLET PO (20:39)
--- NOTE | 2023-03-22 06:58 | PC.NURSE ---
Pt sleeping this am, therefore NO levothyroxine given this morning (last night was pt's first night taking ambien).
[2023-03-22 07:00] VITALS: BP 120/75; PULSE 77; RESP 17; TEMP 36.1; O2SAT 97
--- NOTE | 2023-03-22 07:08 | PM.PN.1 ---
Subjective Subjective Interval history: No new complaints. Exam Vital Signs (past 8 hours): Oxygen Delivery Method Room Air Oxygen Flow Rate 0 Narrative Exam Narrative: GEN: no acute distress, chronically ill appearing Objective Labs 03/07/23 09:20 03/07/23 09:20 [facility] Medical History Cerebrovascular accident Chronic GERD Dementia Hyperlipidemia Hypertension Social History household members: children Smoking Status: Former smoker alcohol intake: current Assessment & Plan Assessment & Plan narrative: 1. Unstable discharge for a debilitated elderly male with multiple medical comorbidities Patient remains here under observation status while an appropriate disposition is identified. Placement efforts ongoing. 2. History of stroke with left-sided weakness, POA and stable. ? chronic, stable 3. Coronary artery disease, POA and stable. Previous stenting.? No acute symptoms.? Continue home meds 4. Hypertension, POA and stable. Remains normotensive.? Continue usual home meds. 5. Dementia, POA and stable. ?slums assessment performed last month resulted in a 21/30, consistent with mild cognitive deficits. 6. Depression, POA and stable. Continue Zoloft 7. Hypothyroidism, POA and stable. TSH 0.02 with normal T4 on 03/07. Will hold synthroid and recheck TSH prior to discharge. 8. Insomnia Failed trazodone. Changed to ambien 5mg nightly plus temazepam PRN Code status DNR/DNI Quality VTE Deep Vein Thrombosis/Pulmonary Embolism Present on Admission: No
[2023-03-22] MEDS: LEVOTHYROXINE 75 MCG TABLET 150 MCG PO (07:26)
[2023-03-22] MEDS: DOCUSATE 100 MG CAPSULE PO ×2 (10:28→20:13)
[2023-03-22] MEDS: METOPROLOL IR 25 MG TABLET 12.5 MG PO ×2 (10:28→20:13)
[2023-03-22] MEDS: GABAPENTIN 100 MG CAPSULE PO ×2 (10:29→20:13)
[2023-03-22] MEDS: HYDROCODONE/ACET 10/325 TABLET 1 TAB PO ×2 (10:29→20:12)
[2023-03-22] MEDS: polyethylene glycoL 3350 17 GM POWD.PACK PO (10:30)
[2023-03-22 20:00] VITALS: BP 127/64; PULSE 62; RESP 17; TEMP 36.6; O2SAT 97
[2023-03-22] MEDS: ZOLPIDEM 5 MG TABLET PO (20:13)
[2023-03-23] MEDS: HYDROCODONE/ACET 10/325 TABLET 1 TAB PO ×4 (00:06→20:48)
[2023-03-23] MEDS: LEVOTHYROXINE 75 MCG TABLET 150 MCG PO (08:47)
[2023-03-23] MEDS: METOPROLOL IR 25 MG TABLET 12.5 MG PO ×2 (08:47→20:49)
[2023-03-23] MEDS: GABAPENTIN 100 MG CAPSULE PO ×2 (08:47→20:48)
[2023-03-23 09:36] VITALS: BP 142/69; PULSE 57; RESP 18; TEMP 36.4; O2SAT 96
--- NOTE | 2023-03-23 10:36 | PT-IP ANOTE ---
DOWEL MACHINE OPERATOR attempted to work with pt 1034 am. Pt refused to performing mobility stating I don't want to do anything today, I am to weak. Declined suggestion to work to get up to the bathroom but declined I have been using my urinal, I don't need to get up. DOWEL MACHINE OPERATOR provided education on importance of mobility with nursing and therapy to improve in strength to be more independent. Pt confirmed understood but stated I am to tired to do anything today. Pt was not seen this am. Will continue to assess progress if patient willing to participate. Recommend nursing to encourage mobility up to chair, use commode.
--- NOTE | 2023-03-23 10:41 | PM.PN.1 ---
Subjective Subjective Interval history: No new complaints. Exam Vital Signs (past 8 hours): - 03/23/23 09:36 Temperature 97.6 F Pulse Rate 57 L Respiratory Rate 18 Blood Pressure 142/69 H Pulse Oximetry 96 Oxygen Flow Rate 0 Oxygen Delivery Method Room Air Oxygen Flow Rate 0 Narrative Exam Narrative: GEN: no acute distress, chronically ill appearing Objective Labs 03/07/23 09:20 03/07/23 09:20 PF[facility] Medical History Cerebrovascular accident Chronic GERD Dementia Hyperlipidemia Hypertension Social History household members: children Smoking Status: Former smoker alcohol intake: current Assessment & Plan Assessment & Plan narrative: 1. Unstable discharge for a debilitated elderly male with multiple medical comorbidities Patient remains here under observation status while an appropriate disposition is identified. Placement efforts ongoing. 2. History of stroke with left-sided weakness, POA and stable. ? chronic, stable 3. Coronary artery disease, POA and stable. Previous stenting.? No acute symptoms.? Continue home meds 4. Hypertension, POA and stable. Remains normotensive.? Continue usual home meds. 5. Dementia, POA and stable. ?slums assessment performed last month resulted in a 21/30, consistent with mild cognitive deficits. 6. Depression, POA and stable. Continue Zoloft 7. Hypothyroidism, POA and stable. TSH 0.02 with normal T4 on 03/07. Will hold synthroid and recheck TSH prior to discharge. 8. Insomnia Failed trazodone. Changed to ambien 5mg nightly plus temazepam PRN Code status DNR/DNI Quality VTE Deep Vein Thrombosis/Pulmonary Embolism Present on Admission: No
[2023-03-23 20:00] VITALS: BP 159/70; PULSE 56; RESP 19; TEMP 36.6; O2SAT 98
[2023-03-23] MEDS: ZOLPIDEM 5 MG TABLET PO (20:49)
[2023-03-24] MEDS: HYDROCODONE/ACET 10/325 TABLET 1 TAB PO ×3 (02:11→20:04)
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
[2023-03-24 08:30] VITALS: BP 128/61; PULSE 68; RESP 17; TEMP 36.4; O2SAT 98
[2023-03-24] MEDS: GABAPENTIN 100 MG CAPSULE PO ×2 (09:51→20:04)
[2023-03-24] MEDS: METOPROLOL IR 25 MG TABLET 12.5 MG PO ×2 (09:51→20:05)
[2023-03-24] MEDS: diazePAM 5 MG TABLET PO (12:19)
--- NOTE | 2023-03-24 12:21 | PT-IP ANOTE ---
Pt found resting in bed, crying and emotional this morning. Pt reports not wanting to live anymore and having suicidal thoughts, does not state having a plan. Therapist notified nursing, SW and hospitalist. PT will check back with pt tomorrow.
[2023-03-24 19:00] VITALS: BP 138/69; PULSE 61; RESP 16; TEMP 36.4; O2SAT 98
[2023-03-24] MEDS: ZOLPIDEM 5 MG TABLET PO (20:04)
[2023-03-24] MEDS: SERTRALINE 50 MG TABLET 100 MG PO (20:04)
[2023-03-25] MEDS: LEVOTHYROXINE 75 MCG TABLET 150 MCG PO (05:58)
[2023-03-25] MEDS: HYDROCODONE/ACET 10/325 TABLET 1 TAB PO ×2 (05:58→20:24)
--- NOTE | 2023-03-25 09:03 | PM.PN.1 ---
Subjective Subjective Interval history: Patient is still feeling quite depressed. His appetite has been poor lately. He is willing to try an appetite stimulant. Exam Vital Signs (past 8 hours): Oxygen Delivery Method Room Air Oxygen Flow Rate 0 Narrative Exam Narrative: GEN: no acute distress, chronically ill appearing, tearful Objective Labs 03/07/23 09:20 03/07/23 09:20 [facility] Medical History Cerebrovascular accident Chronic GERD Dementia Hyperlipidemia Hypertension Social History household members: children Smoking Status: Former smoker alcohol intake: current Assessment & Plan Assessment & Plan narrative: 1. Unstable discharge for a debilitated elderly male with multiple medical comorbidities Patient remains here under observation status while an appropriate disposition is identified. Placement efforts ongoing. 2. History of stroke with left-sided weakness, POA and stable. ? chronic, stable 3. Coronary artery disease, POA and stable. Previous stenting.? No acute symptoms.? Continue home meds 4. Hypertension, POA and stable. Remains normotensive.? Continue usual home meds. 5. Dementia, POA and stable. ?slums assessment performed last month resulted in a 21/30, consistent with mild cognitive deficits. 6. Depression, POA and stable. Continue Zoloft, had been stopped for some reason and patient because distraught on 03/24 due to his overall situation. This was restarted at 100mg daily. 7. Hypothyroidism, POA and stable. TSH 0.02 with normal T4 on 03/07. Will hold synthroid and recheck TSH prior to discharge. 8. Insomnia Failed trazodone. Changed to ambien 5mg nightly plus temazepam PRN. which has been working better. 9. Anxiety Valium PRN ordered. 10. Chronic pain Continue home norco PRN. 12. Anorexia Patient is now only really eating one meal a day plus a few snacks. Likely due to his depressed state. He would like to try marinol to help. Code status DNR/DNI Quality VTE Deep Vein Thrombosis/Pulmonary Embolism Present on Admission: No
[2023-03-25] MEDS: GABAPENTIN 100 MG CAPSULE PO ×2 (09:24→20:24)
[2023-03-25] MEDS: METOPROLOL IR 25 MG TABLET 12.5 MG PO (09:24)
[2023-03-25 09:37] VITALS: BP 136/60; PULSE 54; RESP 16; TEMP 36.8; O2SAT 98
[2023-03-25] MEDS: droNABinol 2.5 MG CAPSULE PO ×2 (12:12→15:42)
--- NOTE | 2023-03-25 12:35 | PT.IPTN ---
Current Diagnoses Weakness (12/14/22) Physical Therapy Treatment Note M2 PT-IP Current Condition Start: 12/15/22 09:27 Freq: NEEDED Status: Active Protocol: Document 03/15/23 16:35 DLM (Rec: 03/15/23 16:35 DLM [id number]) Physical Therapy Current Condition Current Condition Evaluation Date 03/11/23 Treatment Diagnosis Weakness, impaired gait Onset Date 12/14/22 M3 PT-IP Subjective Start: 12/15/22 09:27 Freq: NEEDED Status: Active Protocol: Document 03/25/23 13:16 TS (Rec: 03/25/23 13:30 TS [id number]) Subjective Physical Therapy Visit Type Type Treatment Note Visit Start Time 12:35 Visit Stop Time 13:02 Total Visit Minutes 27 Number of REAL PROPERTY EVALUATOR Visits 6 Physical Therapy Visit Comments Patient Comments Pt found resting in bed, reports pain in heels is improving, agreeable to PT. M4 PT-IP Mobility and Gait Start: 12/15/22 09:27 Freq: NEEDED Status: Active Protocol: Document 03/25/23 13:16 TS (Rec: 03/25/23 13:30 TS [id number]) PT-Bed Mobility Assessment Supine to Sit Supine to Sit Minimal Assistance Sit to Supine Sit to Supine Standby Assistance Scooting Scooting to Edge of Bed Standby Assistance PT-Transfer Assessment Sit to and From Stand Sit to and from Stand Contact Guard Assistance, Maximum Assistance,1 Person Assistance,Use of Upper Extremities Equipment Transfer Assistive Device Gait Belt,Front Wheeled Walker Orthotic/Prosthetic Devices or Brace: No Transfers Transfer Destination Bed,Chair Transfer Technique Stand Step Pivot Transfer Ability Level of Assist Contact Guard Assistance Comments Mobility Comments Supine to sit HOB elevated 40D Carlin with handheld assist for uprighting trunk and use of handrails. He performed sit to stand x2 CGA from bed w/FWW with BUE support on FWW. He performed stand step pivot transfer to chair CGA, he is unsteady with toe touching of LLE on ground, he fatigues quickly in standing and requests to sit in chair. Sit to stand x1 MaxA from lower surface of chair, provided cues for weight forward, feet underneath him and UEs pushing from arms of chair. He amblated back to bed w/FWW. Sit to supine SBA with use of bed rails. pt was left in bed with call light nearby, all needs met. Gait Assessment Gait Gait Assistance Required: Contact Guard Assist,1 Person Assist Distance (Feet) 10 Assistive Devices Assistive Device Gait Belt,Front Wheeled Walker Orthotic/Prosthetic Devices or Brace: No Gait Deviations General Gait Pattern Antalgic,Decreased Stride Length,Decreased Feet Clearance,Lateral Trunk Lean, Narrow Based Gait,Step-to Gait Factors Limiting Gait Function Factors Limiting Gait Function Decreased Activity Tolerance, Decreased Strength, Incoordination,Limited Range of Motion,Pain,Poor Balance, Poor Safety Awareness Comments Gait Comments See mobility comments. PT-Balance Assessment Sitting Balance and Reactions Static Sitting Balance Ability Good Dynamic Sitting Balance Ability Fair Standing Balance and Reactions Static Standing Balance Ability Fair Dynamic Standing Balance Ability Poor Device Used FWW M5 PT-IP Objective Assessments Start: 12/15/22 09:27 Freq: NEEDED Status: Active Protocol: Document 03/11/23 11:01 SAK (Rec: 03/11/23 11:18 SAK [id number]) Orientation Orientation/Cognition Level of Alertness Alert Orientation Name,Age,Place,Situation Language Function Ability No Deficits Noted Safety Awareness Understands Safety Issues Memory Description Short Term Impaired Gross Range of Motion Upper Extremity ROM Assessment Within Functional Limits Lower Extremity ROM Assessment Bilaterally Impaired Impairments lacking full knee extension in sitting approx 30 deg from straight, ankle df to 0 hilda Strength Upper Extremity Strength Assessment Within Functional Limits Lower Extremity Strength Hip flex 3-/5 Knee ext right 3-/5, left 2+/5, flex 4-/5 right, 3-/5 left Ankle 4/5 right, df 4-/5 left, pf 3/ 5 left M6 PT-IP Treatment Start: 12/15/22 09:27 Freq: NEEDED Status: Active Protocol: Document 03/21/23 10:36 TS (Rec: 03/21/23 10:55 TS [id number]) Physical Therapy Treatment Exercises Exercises Ankle Pumps,Gluteal Sets,Heel Slides,Straight Leg Raises, Supine Hip Abduction Other Treatments Other Treatment Performed See mobility comments. M7 PT-IP Assessment and Plan Start: 12/15/22 09:27 Freq: NEEDED Status: Active Protocol: Document 03/25/23 13:16 TS (Rec: 03/25/23 13:30 TS [id number]) PT Summary Assessment and Plan Potential Rehabilitation Potential Fair Summary Impairments ROM,Strength,Balance,Gait Progress Towards Goals Slow Progress due to Pain,Slow Progress due to Medical Issues,Slow Progress due to Activity Tolerance Assessment Summary Pt continues to make slow progress with his mobility. He requires Carlin for supine to sit with use of raisl and handheld assist. He is CGA for sit to stands from elevated surface of bed but requires MaxA for sit to stand from lower surface of the chair. Pt continues to have difficulty planting L foot on ground with ambulation making him unsteady with gait. PT continues to recommend SNF at this time. Goals Bed Mobility Goal Independent Transfer Goal Contact Guard Assistance Gait Goal Contact Guard Assistance Gait Distance 20 Days to Meet Goals 7 Frequency of Treatment Frequency Of Treatment Once a Day Treatment Plan Physical Therapy Treatment Plan Bed Mobility Training,Transfer Training,Gait Training, Therapeutic Exercise,Balance Retraining,Discharge Planning Other Recommendations and Next Treatment bed mob, transfers, gait if Focus able tolerate using FWW, Continue safety education. Weight Bearing Status Weight Bearing Status Full Weight Bearing Recommendations To Nursing Amount of Assist Needed 1 Person Assist Discharge Recommendations PT Discharge Recommendations SNF Rehab Transportation Needs at Discharge Private Vehicle,Wheelchair/ Cabulance
[2023-03-25] MEDS: SERTRALINE 50 MG TABLET 100 MG PO (20:24)
[2023-03-25] MEDS: ZOLPIDEM 5 MG TABLET PO (20:24)
[2023-03-25] MEDS: polyethylene glycoL 3350 17 GM POWD.PACK PO (20:25)
[2023-03-25 20:28] VITALS: BP 128/62; PULSE 57; RESP 14; TEMP 36.7; O2SAT 98
[2023-03-26] MEDS: LEVOTHYROXINE 75 MCG TABLET 150 MCG PO (06:34)
[2023-03-26] MEDS: droNABinol 2.5 MG CAPSULE PO ×2 (06:35→15:10)
[2023-03-26 09:00] VITALS: BP 129/62; PULSE 66; RESP 18; TEMP 36.7; O2SAT 97
[2023-03-26] MEDS: GABAPENTIN 100 MG CAPSULE PO ×2 (09:49→21:12)
[2023-03-26] MEDS: METOPROLOL IR 25 MG TABLET 12.5 MG PO (09:54)
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
--- NOTE | 2023-03-26 13:24 | PM.PN.1 ---
Subjective Subjective Date Patient Seen: 03/26/23 Time Patient Seen: 08:00 Interval history: No new issues Exam Vital Signs (past 8 hours): - 03/26/23 09:00 Temperature 98.1 F Pulse Rate 66 Respiratory Rate 18 Blood Pressure 129/62 Pulse Oximetry 97 Oxygen Flow Rate 0 Oxygen Delivery Method Room Air Oxygen Flow Rate 0 Narrative Exam Narrative: GEN: no acute distress Objective Labs 03/07/23 09:20 03/07/23 09:20 PFSH Medical History Cerebrovascular accident Chronic GERD Dementia Hyperlipidemia Hypertension Social History household members: children Smoking Status: Former smoker alcohol intake: current Assessment & Plan Assessment & Plan narrative: 1. Unstable discharge for a debilitated elderly male with multiple medical comorbidities Patient remains here under observation status while an appropriate disposition is identified. Placement efforts ongoing. 2. History of stroke with left-sided weakness, POA and stable. ? chronic, stable 3. Coronary artery disease, POA and stable. Previous stenting.? No acute symptoms.? Continue home meds 4. Hypertension, POA and stable. Remains normotensive.? Continue usual home meds. 5. Dementia, POA and stable. ?slums assessment performed last month resulted in a 21/30, consistent with mild cognitive deficits. 6. Depression, POA and stable. Continue Zoloft, had been stopped for some reason and patient because distraught on 03/24 due to his overall situation. This was restarted at 100mg daily. 7. Hypothyroidism, POA and stable. TSH 0.02 with normal T4 on 03/07. Will hold synthroid and recheck TSH prior to discharge. 8. Insomnia Failed trazodone. Changed to ambien 5mg nightly plus temazepam PRN. which has been working better. 9. Anxiety Valium PRN ordered. 10. Chronic pain Continue home norco PRN. 12. Anorexia Patient is now only really eating one meal a day plus a few snacks. Likely due to his depressed state. He would like to try marinol to help. Quality VTE Deep Vein Thrombosis/Pulmonary Embolism Present on Admission: No
--- NOTE | 2023-03-26 14:30 | PT.IPTN ---
Current Diagnoses Weakness (12/14/22) Physical Therapy Treatment Note M2 PT-IP Current Condition Start: 12/15/22 09:27 Freq: NEEDED Status: Active Protocol: Document 03/15/23 16:35 DLM (Rec: 03/15/23 16:35 DLM [id number]) Physical Therapy Current Condition Current Condition Evaluation Date 03/11/23 Treatment Diagnosis Weakness, impaired gait Onset Date 12/14/22 M3 PT-IP Subjective Start: 12/15/22 09:27 Freq: NEEDED Status: Active Protocol: Document 03/26/23 15:08 TS (Rec: 03/26/23 15:32 TS [id number]) Subjective Physical Therapy Visit Type Type Treatment Note Visit Start Time 14:30 Visit Stop Time 14:50 Total Visit Minutes 20 Number of DERRICK BOAT OPERATOR Visits 7 Physical Therapy Visit Comments Patient Comments Pt found resting in bed, reports feeling tired today and continues to have pain in his heels L>R, with motivation was agreeable to work with PT . Therapy Pain Assessment Pain When Pain Assessed During Mobility Pain Present Pain Present Pain Reported M4 PT-IP Mobility and Gait Start: 12/15/22 09:27 Freq: NEEDED Status: Active Protocol: Document 03/26/23 15:08 TS (Rec: 03/26/23 15:32 TS [id number]) PT-Bed Mobility Assessment Supine to Sit Supine to Sit Minimal Assistance Sit to Supine Sit to Supine Standby Assistance Scooting Scooting to Edge of Bed Contact Guard Assistance PT-Transfer Assessment Sit to and From Stand Sit to and from Stand Contact Guard Assistance, Maximum Assistance,1 Person Assistance,Use of Upper Extremities Equipment Transfer Assistive Device Gait Belt,Front Wheeled Walker Orthotic/Prosthetic Devices or Brace: No Transfers Transfer Destination Bed,Chair Transfer Technique Stand Step Pivot Transfer Ability Level of Assist Contact Guard Assistance Comments Mobility Comments Supine to sit HOB elevated Carlin with handheld assist and use of handrail. He performed sit to stand from bed CGA with cues for weight forward and feet underneath him. He ambulated ~6' to chair CGA w/ FWW, pt toe touches on LLE making him unsteady. Pt fatgiues quickly and requested to sit in chair. Sit to stand from chair MaxA w/FWW, provided cues for weight forward and hinging at hips. He ambulated back to bed ~6' CGA, continues to toe touch on LLE and reports pain in L heel. Sit to supine SBA with BUE support, pt repositions in bed SBA with use of rails. Pt was left back in bed with call light nearby, bed alarm on, all needs met. Gait Assessment Gait Gait Assistance Required: Contact Guard Assist,1 Person Assist Distance (Feet) 12 Assistive Devices Assistive Device Gait Belt,Front Wheeled Walker Orthotic/Prosthetic Devices or Brace: No Gait Deviations General Gait Pattern Antalgic,Decreased Stride Length,Decreased Feet Clearance,Lateral Trunk Lean, Narrow Based Gait,Step-to Gait Factors Limiting Gait Function Factors Limiting Gait Function Decreased Activity Tolerance, Decreased Strength, Incoordination,Limited Range of Motion,Pain,Poor Balance, Poor Safety Awareness Comments Gait Comments See mobility comments. PT-Balance Assessment Sitting Balance and Reactions Static Sitting Balance Ability Good Dynamic Sitting Balance Ability Fair Standing Balance and Reactions Static Standing Balance Ability Fair Dynamic Standing Balance Ability Poor Device Used FWW M5 PT-IP Objective Assessments Start: 12/15/22 09:27 Freq: NEEDED Status: Active Protocol: Document 03/11/23 11:01 SAK (Rec: 03/11/23 11:18 SAK [id number]) Orientation Orientation/Cognition Level of Alertness Alert Orientation Name,Age,Place,Situation Language Function Ability No Deficits Noted Safety Awareness Understands Safety Issues Memory Description Short Term Impaired Gross Range of Motion Upper Extremity ROM Assessment Within Functional Limits Lower Extremity ROM Assessment Bilaterally Impaired Impairments lacking full knee extension in sitting approx 30 deg from straight, ankle df to 0 hilda Strength Upper Extremity Strength Assessment Within Functional Limits Lower Extremity Strength Hip flex 3-/5 Knee ext right 3-/5, left 2+/5, flex 4-/5 right, 3-/5 left Ankle 4/5 right, df 4-/5 left, pf 3/ 5 left M6 PT-IP Treatment Start: 12/15/22 09:27 Freq: NEEDED Status: Active Protocol: Document 03/21/23 10:36 TS (Rec: 03/21/23 10:55 TS [id number]) Physical Therapy Treatment Exercises Exercises Ankle Pumps,Gluteal Sets,Heel Slides,Straight Leg Raises, Supine Hip Abduction Other Treatments Other Treatment Performed See mobility comments. M7 PT-IP Assessment and Plan Start: 12/15/22 09:27 Freq: NEEDED Status: Active Protocol: Document 03/26/23 15:08 TS (Rec: 03/26/23 15:32 TS [id number]) PT Summary Assessment and Plan Potential Rehabilitation Potential Fair Summary Impairments ROM,Strength,Balance,Gait Progress Towards Goals Slow Progress due to Pain,Slow Progress due to Medical Issues,Slow Progress due to Activity Tolerance Assessment Summary Pt continues to make slow progress with his mobility. He continues to require Carlin for sitting up to EOB due to poor strength. He shows some carryover and improvement with his sit to stand technique and use of FWW. He continues to have poor tolerance to gait due to pain in LLE and overall weakness. Pt has poor static and dynamic balance due to limited weight bearing on LLE. PT continues to recommend SNF. Goals Bed Mobility Goal Independent Transfer Goal Contact Guard Assistance Gait Goal Contact Guard Assistance Gait Distance 20 Days to Meet Goals 7 Frequency of Treatment Frequency Of Treatment Once a Day Treatment Plan Physical Therapy Treatment Plan Bed Mobility Training,Transfer Training,Gait Training, Therapeutic Exercise,Balance Retraining,Discharge Planning Other Recommendations and Next Treatment bed mob, transfers, gait if Focus able tolerate using FWW, Continue safety education. Weight Bearing Status Weight Bearing Status Full Weight Bearing Recommendations To Nursing Amount of Assist Needed 1 Person Assist Discharge Recommendations PT Discharge Recommendations SNF Rehab Transportation Needs at Discharge Private Vehicle,Wheelchair/ Cabulance
[2023-03-26 19:00] VITALS: BP 129/59; PULSE 59; RESP 20; TEMP 36.3; O2SAT 98
[2023-03-26] MEDS: SERTRALINE 50 MG TABLET 100 MG PO (21:12)
[2023-03-26] MEDS: TEMAZEPAM 15 MG CAPSULE PO ×2 (21:12→23:18)
[2023-03-26] MEDS: ZOLPIDEM 5 MG TABLET PO (21:12)
[2023-03-26] MEDS: HYDROCODONE/ACET 10/325 TABLET 1 TAB PO (21:12)
[2023-03-26] MEDS: diazePAM 5 MG TABLET PO (23:18)
[2023-03-27] MEDS: droNABinol 2.5 MG CAPSULE PO ×2 (06:05→15:14)
[2023-03-27] MEDS: LEVOTHYROXINE 75 MCG TABLET 150 MCG PO (06:05)
[2023-03-27 08:31] VITALS: BP 131/66; PULSE 61; RESP 20; TEMP 36.6; O2SAT 96
[2023-03-27] MEDS: METOPROLOL IR 25 MG TABLET 12.5 MG PO ×2 (08:52→21:05)
[2023-03-27] MEDS: HYDROCODONE/ACET 10/325 TABLET 1 TAB PO ×3 (08:52→21:05)
[2023-03-27] MEDS: GABAPENTIN 100 MG CAPSULE PO ×2 (08:52→21:04)
--- NOTE | 2023-03-27 10:39 | PM.PN.1 ---
Subjective Subjective Date Patient Seen: 03/27/23 Time Patient Seen: 08:00 Interval history: No new concerns Exam Vital Signs (past 8 hours): - 03/27/23 08:31 Temperature 97.9 F Pulse Rate 61 Respiratory Rate 20 Blood Pressure 131/66 Pulse Oximetry 96 Oxygen Flow Rate 0 Oxygen Delivery Method Room Air Oxygen Flow Rate 0 Narrative Exam Narrative: GEN: no acute distress Objective Labs 03/07/23 09:20 03/07/23 09:20 PFSH Medical History Cerebrovascular accident Chronic GERD Dementia Hyperlipidemia Hypertension Social History household members: children Smoking Status: Former smoker alcohol intake: current Assessment & Plan Assessment & Plan narrative: 1. Unstable discharge for a debilitated elderly male with multiple medical comorbidities Patient remains here under observation status while an appropriate disposition is identified. CHRONIC ISSUES 2. History of stroke with left-sided weakness, POA and stable. ? chronic, stable 3. Coronary artery disease, POA and stable. Previous stenting.? No acute symptoms.? Continue home meds 4. Hypertension, POA and stable. Remains normotensive.? Continue usual home meds. 5. Dementia, POA and stable. ?slums assessment resulted , consistent with mild cognitive deficits. 6. Depression, POA and stable. Continue Zoloft 7. Hypothyroidism, POA and stable. TSH 0.02 with normal T4 on 03/07 8. Insomnia ambien 5mg nightly plus temazepam PRN 9. Anxiety Valium PRN ordered. 10. Chronic pain Continue home norco PRN. 12. Anorexia -previous physician tried marinol for poor appetite Quality VTE Deep Vein Thrombosis/Pulmonary Embolism Present on Admission: No
--- NOTE | 2023-03-27 11:30 | PT.IPTN ---
Current Diagnoses Weakness (12/14/22) Physical Therapy Treatment Note M2 PT-IP Current Condition Start: 12/15/22 09:27 Freq: NEEDED Status: Active Protocol: Document 03/15/23 16:35 DLM (Rec: 03/15/23 16:35 DLM [id number]) Physical Therapy Current Condition Current Condition Evaluation Date 03/11/23 Treatment Diagnosis Weakness, impaired gait Onset Date 12/14/22 M3 PT-IP Subjective Start: 12/15/22 09:27 Freq: NEEDED Status: Active Protocol: Document 03/27/23 11:55 TS (Rec: 03/27/23 12:04 TS [id number]) Subjective Physical Therapy Visit Type Type Treatment Note Visit Start Time 11:30 Visit Stop Time 11:54 Total Visit Minutes 24 Number of HOTEL FRONT OFFICE MANAGER Visits 8 Physical Therapy Visit Comments Patient Comments Pt found resting in bed, reports not feeling well today and very tired, agreeable to PT. M4 PT-IP Mobility and Gait Start: 12/15/22 09:27 Freq: NEEDED Status: Active Protocol: Document 03/27/23 11:55 TS (Rec: 03/27/23 12:04 TS [id number]) PT-Bed Mobility Assessment Supine to Sit Supine to Sit Minimal Assistance Sit to Supine Sit to Supine Minimal Assistance Scooting Scooting to Edge of Bed Contact Guard Assistance Scooting Up and Down in Bed Standby Assistance PT-Transfer Assessment Comments Mobility Comments Pt found resting in bed, agreeable to PT. He performed supine to sit Carlin for uprighting trunk, pt required handheld assist and use of handrails. He scooted to EOB CGA, required extra time and with extra effort. Pt sat EOB, reported dizziness and requested back to bed. Sit to supine Carlin for LEs into bed, pt scooted to HOB SBA with use of BUE on handrails. Pt not agreeable to try and sit EOB again but agreeable to bed ex. He performed SLR, Hip ABD and ankle pumps. Pt was left in bed with call light nearby, all needs met. Gait Assessment Comments Gait Comments Not this session PT-Balance Assessment Sitting Balance and Reactions Static Sitting Balance Ability Good Dynamic Sitting Balance Ability Fair M5 PT-IP Objective Assessments Start: 12/15/22 09:27 Freq: NEEDED Status: Active Protocol: Document 03/11/23 11:01 SAK (Rec: 03/11/23 11:18 [facility] [id number]) Orientation Orientation/Cognition Level of Alertness Alert Orientation Name,Age,Place,Situation Language Function Ability No Deficits Noted Safety Awareness Understands Safety Issues Memory Description Short Term Impaired Gross Range of Motion Upper Extremity ROM Assessment Within Functional Limits Lower Extremity ROM Assessment Bilaterally Impaired Impairments lacking full knee extension in sitting approx 30 deg from straight, ankle df to 0 hilda Strength Upper Extremity Strength Assessment Within Functional Limits Lower Extremity Strength Hip flex 3-/5 Knee ext right 3-/5, left 2+/5, flex 4-/5 right, 3-/5 left Ankle 4/5 right, df 4-/5 left, pf 3/ 5 left M6 PT-IP Treatment Start: 12/15/22 09:27 Freq: NEEDED Status: Active Protocol: Document 03/21/23 10:36 TS (Rec: 03/21/23 10:55 TS [id number]) Physical Therapy Treatment Exercises Exercises Ankle Pumps,Gluteal Sets,Heel Slides,Straight Leg Raises, Supine Hip Abduction Other Treatments Other Treatment Performed See mobility comments. M7 PT-IP Assessment and Plan Start: 12/15/22 09:27 Freq: NEEDED Status: Active Protocol: Document 03/27/23 11:55 TS (Rec: 03/27/23 12:04 TS [id number]) PT Summary Assessment and Plan Potential Rehabilitation Potential Fair Summary Progress Towards Goals Slow Progress due to Pain,Slow Progress due to Medical Issues,Slow Progress due to Activity Tolerance Assessment Summary Pt reported feeling tired and weaker this morning and ould progress to OOB mobility. He needed increased assist for bed mobility with increased effort and time by him. He sat EOB but became dizzy and requested back to bed. He continues to perform bed ex of SLR, Hip ABD and ankle pumps. He demonstrates good carryover of ex and does not require cueing. PT continues to recommend SNF. Goals Bed Mobility Goal Independent Transfer Goal Contact Guard Assistance Gait Goal Contact Guard Assistance Gait Distance 20 Days to Meet Goals 7 Frequency of Treatment Frequency Of Treatment Once a Day Treatment Plan Physical Therapy Treatment Plan Bed Mobility Training,Transfer Training,Gait Training, Therapeutic Exercise,Balance Retraining,Discharge Planning Other Recommendations and Next Treatment bed mob, transfers, gait if Focus able tolerate using FWW, Continue safety education. Weight Bearing Status Weight Bearing Status Full Weight Bearing Recommendations To Nursing Amount of Assist Needed 1 Person Assist Discharge Recommendations PT Discharge Recommendations SNF Rehab Transportation Needs at Discharge Private Vehicle,Wheelchair/ Cabulance
[2023-03-27 19:00] VITALS: BP 125/64; PULSE 57; RESP 20; TEMP 36.2; O2SAT 98
[2023-03-27] MEDS: SERTRALINE 50 MG TABLET 100 MG PO (21:05)
[2023-03-27] MEDS: ZOLPIDEM 5 MG TABLET PO (21:05)
[2023-03-27] MEDS: TEMAZEPAM 15 MG CAPSULE PO (21:05)
[2023-03-28] MEDS: LEVOTHYROXINE 75 MCG TABLET 150 MCG PO (06:09)
[2023-03-28] MEDS: droNABinol 2.5 MG CAPSULE PO ×3 (06:09→20:17)
[2023-03-28 08:00] VITALS: O2SAT 96
[2023-03-28] MEDS: HYDROCODONE/ACET 10/325 TABLET 1 TAB PO ×2 (08:47→15:49)
[2023-03-28] MEDS: METOPROLOL IR 25 MG TABLET 12.5 MG PO ×2 (08:48→20:18)
[2023-03-28] MEDS: GABAPENTIN 100 MG CAPSULE PO ×2 (08:48→20:17)
[2023-03-28 09:36] LABS: TSH w/ Reflex to FT4 0.15 uIU/mL (0.47-4.68)
[2023-03-28 10:10] LABS: Free T4, Direct Thyroxine 1.49 ng/dL (0.78-2.19)
--- NOTE | 2023-03-28 11:50 | PT-IP ANOTE ---
Pt refused to work with PT today. He reports being too tired and would like to rest. Will check back in tomorrow.
--- NOTE | 2023-03-28 13:17 | CM.DPNOTE ---
Home and Community Services- [facility]TAN Application Spoke with assigned [facility] financial worker Deepika Trejo# [phone] [email or web address] over the last few days, assisted Deepika as she started processing the financial portion of patient's medicaid application Of note- Patient's current SSA is $1,299 per mo On Thursday, Deepika completed a letter that indicated what was still needed from patient in order to further process the financial portion of the CHETAN application. This letter was emailed to this BIOSTATISTICS TEACHER team in PDF format and will be snail mailed to patient at his listed address as well as to court visitor len at his POB Essentially, the letter requests information about the proceeds from the sale of patient's home in [place], $[phone] , where the funds were distributed and for what purpose Deepika explained a signed affidavit from patient declaring this information would suffice but patient should have witnesses and/or a notary present during signing before it is submitted This BIOSTATISTICS TEACHER had multiple lengthy conversations w/Deepika re patient, his background and requirements for this financial application to be processed appropriately This BIOSTATISTICS TEACHER team knows from conversations w/patient that he gifted his son Shane a portion of the proceeds from the sale of his home Deepika Whitlock indicated that there is a chance patient will not be penalized for these stinson gifts if son was caring for patient during/around the time of these stinson gifts .....and a physician can attest that the care the son was providing prevented institutional status prior to Dec 08 2022 (when patient was boarded in the ER and subsequently admitted) Furthermore, any review of penalties or if patient meets criteria for the hardship waiver will not happen until both financial and functional assessment comes together in completion and processing (Functional assessment currently scheduled by Tory Stack for Apr 28) Emailed Len, court visitor, today 03.28.23, with no response back This BIOSTATISTICS TEACHER intended to sit with patient to discuss the letter from [facility] and begin drafting the affidavit however ran out of time r/t caseload demands ' Plan: This BIOSTATISTICS TEACHER returning to shift Thursday04.01.23 and can assist again at that time, ideally with court visitor joining the conversation by phone JW
--- NOTE | 2023-03-28 14:45 | P.PN_ITS ---
Subjective Subjective Interval history: 72-year-old male with hypertension, hyperlipidemia, previous stroke with left- sided weakness, coronary artery disease status post stents, depression, and hypothyroidism as well as general debility who was admitted with an unsafe home environment. Today is hospital day 104. Patient notes he has been feeling down recently due to his very prolonged hospitalization. Notes his appetite was reduced but seems improved since starting on Marinol a couple of days ago. He does admit to feeling somewhat more depressed, and sleeping poorly overall. Exam Vital Signs (past 8 hours): - 03/28/23 08:00 03/28/23 08:00 Pulse Oximetry 96 Oxygen Delivery Method Room Air Oxygen Delivery Method Room Air Oxygen Flow Rate 0 Narrative Exam Narrative: GEN: Alert and oriented x 3, NAD HEENT:NC, Face symmetric CHEST: Respiratory excursions symmetric, CTAB CV: RRR, no M/R/G ABD: Soft, NT/? mildly distended, BT present in all 4 quadrants, no organomegaly or masses EXTR: warm, well perfused, no C/C/E SKIN: warm and dry, no rash NEURO: Alert and oriented x 3 Objective Labs 03/07/23 09:20 03/07/23 09:20 Labs: Laboratory Results - last 24 hr 03/28/23 08:35 TSH 0.15 L Free T4 1.49 PFSH Medical History Cerebrovascular accident Chronic GERD Dementia Hyperlipidemia Hypertension Social History household members: children Smoking Status: Former smoker alcohol intake: current Assessment & Plan Assessment & Plan narrative: 1. Unstable discharge for debilitated elderly male with multiple medical comorbidities Patient remains hospitalized pending appropriate placement. Discharge planning continues to work with the state regarding long-term care and Medicaid eligibility. 2. History of stroke with left-sided weakness Chronic, stable 3. Coronary artery disease Status post stenting. No acute symptoms. Continue metoprolol 4. Hypertension Well controlled on metoprolol. 5. ?Depression with vegetative symptoms Continue Zoloft. Some success with Marinol so far. This will be continued. I discussed adding Remeron for improving his sleep and appetite as well as depressive symptoms. He agreed. 7. Hypothyroidism Will repeat TSH, as his last TSH appeared suppressed at 0.02 with a free T4 of 1.73. Code status DNR DNI Prophylaxis Lovenox was discontinued earlier this hospitalization. Disposition Unknown Quality VTE Deep Vein Thrombosis/Pulmonary Embolism Present on Admission: No
[2023-03-28 19:42] VITALS: BP 128/56; PULSE 67; RESP 17; TEMP 36.9; O2SAT 97
[2023-03-28] MEDS: ZOLPIDEM 5 MG TABLET PO (20:17)
[2023-03-28] MEDS: SERTRALINE 50 MG TABLET 100 MG PO (20:18)
[2023-03-28] MEDS: MIRTAZAPINE 15 MG TABLET PO (20:18)
[2023-03-28] MEDS: diazePAM 5 MG TABLET PO (20:18)
[2023-03-28] MEDS: TEMAZEPAM 15 MG CAPSULE PO (21:37)
[2023-03-29] MEDS: HYDROCODONE/ACET 10/325 TABLET 1 TAB PO ×2 (01:50→17:06)
[2023-03-29] MEDS: TEMAZEPAM 15 MG CAPSULE PO (01:51)
[2023-03-29] MEDS: LEVOTHYROXINE 75 MCG TABLET 150 MCG PO (06:04)
[2023-03-29 07:00] VITALS: BP 107/57; PULSE 73; RESP 17; TEMP 36.7; O2SAT 97
[2023-03-29] MEDS: DOCUSATE 100 MG CAPSULE PO (10:11)
[2023-03-29] MEDS: polyethylene glycoL 3350 17 GM POWD.PACK PO (10:11)
[2023-03-29] MEDS: METOPROLOL IR 25 MG TABLET 12.5 MG PO ×2 (10:11→22:03)
[2023-03-29] MEDS: GABAPENTIN 100 MG CAPSULE PO ×2 (10:11→22:04)
[2023-03-29] MEDS: droNABinol 2.5 MG CAPSULE PO ×2 (10:12→22:02)
--- NOTE | 2023-03-29 10:23 | P.PN_ITS ---
Subjective Subjective Interval history: 72-year-old male with hypertension, hyperlipidemia, previous stroke with left- sided weakness, coronary artery disease status post stents, depression, and hypothyroidism as well as general debility who was admitted with an unsafe home environment.? Today is hospital day 105. Patient states he feels he slept well and did not wake up until 10:00 a.m. with the addition of the Remeron yesterday. He continues to feel Marinol is helping his appetite. He is a bit groggy and notes he also takes Ambien, but feels he would like to wait and see how he adopts to the addition of Remeron before making another change. No new complaints. Exam Vital Signs (past 8 hours): - 03/29/23 07:00 Temperature 98.1 F Pulse Rate 73 Respiratory Rate 17 Blood Pressure 107/57 L Pulse Oximetry 97 Oxygen Flow Rate 0 Oxygen Delivery Method Room Air Oxygen Flow Rate 0 Narrative Exam Narrative: GEN: Alert and oriented x 3, NAD HEENT:NC, Face symmetric CHEST: Respiratory excursions symmetric, CTAB CV: RRR, no M/R/G ABD: Soft, NT/ND, BT present in all 4 quadrants, no organomegaly or masses EXTR: warm, well perfused, no C/C/E SKIN: warm and dry, no rash NEURO: Alert and oriented x 3 Objective Labs 03/07/23 09:20 03/07/23 09:20 PFS Medical History Cerebrovascular accident Chronic GERD Dementia Hyperlipidemia Hypertension Social History household members: children Smoking Status: Former smoker alcohol intake: current Assessment & Plan Assessment & Plan narrative: 1. Unstable discharge for debilitated elderly male with multiple medical comorbidities Patient remains hospitalized pending appropriate placement.? Discharge planning continues to work with the state regarding long-term care and Medicaid eligibility. 2. History of stroke with left-sided weakness Chronic, stable 3. Coronary artery disease Status post stenting.? No acute symptoms.? Continue metoprolol 4. Hypertension Well controlled on metoprolol. 5. ?Depression with vegetative symptoms Continue Zoloft.? Some success with Marinol so far.? This will be continued.? Remeron added yesterday to help his sleep, appetite, and depressive symptoms. As noted, he feels a bit groggy today but reports he had a good night sleep. If he continues to be groggy over the next couple of days, would consider discontinuing scheduled Ambien. 7. Hypothyroidism Last labs performed March 07 revealed a TSH 0.02 with a free T4 of 1.73. Currently, TSH is up to 0.15 and free T4 is 1.49. Although his free T4 is within normal range, he likely could tolerate it a little bit lower. Given his persistent low TSH, will trial decreasing his levothyroxine to 125 mcg. Recommend repeat TSH in 3-4 weeks. Code status DNR DNI Prophylaxis Lovenox was discontinued earlier this hospitalization. Disposition Unknown Quality VTE Deep Vein Thrombosis/Pulmonary Embolism Present on Admission: No
--- NOTE | 2023-03-29 13:51 | PT-IP ANOTE ---
Attempted to treat patient this AM, however the pt refused, stating he is too tired to participate in therapy and that he would prefer later today. Returned to see pt in PM, however the pt refused, stating that he would like to be left alone. During both points of contact, the pt was educated on the benefits of skilled PT, with the pt continuing to refuse. Before leaving, PT ensured all needs were met and call light is within reach. Will check in again tomorrow.
[2023-03-29 19:00] VITALS: BP 114/62; PULSE 71; RESP 17; TEMP 37.1; O2SAT 98
[2023-03-29] MEDS: SERTRALINE 50 MG TABLET 100 MG PO (22:02)
[2023-03-30] MEDS: LEVOTHYROXINE 125 MCG TABLET PO (06:37)
[2023-03-30 07:00] VITALS: BP 127/68; PULSE 59; RESP 16; O2SAT 96
--- NOTE | 2023-03-30 10:03 | PC.NURSE ---
Addendum entered by Jannette Soto R.N. 03/30/23 16:38: Just checked on patient and he is sleeping soundly. Addendum entered by Jannette Soto R.N. 03/30/23 15:07: Patient is resting comfortably, and he denies discomfort. He has been appropriate today, mostly sleeping and groggy still. Addendum entered by Jannette Soto R.N. 03/30/23 11:51: Patient is more awake but still groggy. He is feeding himself slowly and has refused am medications at this time. He has been respectful to staff this morning. Original Note: Patient groggy this morning and just wants to sleep, he does not want his metoprolol or gabapentin at this time. Will try again after he is more awake. Dr. Fox d/cd some of patients medications and is aware of how somber and groggy he is. Will check on patient in an hour.
--- NOTE | 2023-03-30 14:25 | P.PN_ITS ---
Subjective Subjective Interval history: No new complaints. Nursing staff report increased lethargy with remeron and his appetite has been fine previously. Exam Vital Signs (past 8 hours): - 03/30/23 07:00 Pulse Rate 59 L Respiratory Rate 16 Blood Pressure 127/68 Pulse Oximetry 96 Oxygen Flow Rate 0 Oxygen Delivery Method Room Air Oxygen Flow Rate 0 Narrative Exam Narrative: GEN: no acute distress Objective Labs 03/07/23 09:20 03/07/23 09:20 PFSH Medical History Cerebrovascular accident Chronic GERD Dementia Hyperlipidemia Hypertension Social History household members: children Smoking Status: Former smoker alcohol intake: current Assessment & Plan Assessment & Plan narrative: 1. Unstable discharge for debilitated elderly male with multiple medical comorbidities Patient remains hospitalized pending appropriate placement.? Discharge planning continues to work with the state regarding long-term care and Medicaid eligibility. 2. History of stroke with left-sided weakness Chronic, stable 3. Coronary artery disease Status post stenting.? No acute symptoms.? Continue metoprolol 4. Hypertension Well controlled on metoprolol. 5. ?Depression with vegetative symptoms Continue Zoloft.? Stopping marinol as nursing staff reported no issues with his dietary intake recently. Remeron will also be discontinued to to grogginess lc pitts the day. Okay to continue with prn ambien but should be used sparingly. 6. Hypothyroidism Last labs performed March 07 revealed a TSH 0.02 with a free T4 of 1.73. Currently, TSH is up to 0.15 and free T4 is 1.49. Although his free T4 is within normal range, he likely could tolerate it a little bit lower. Given his persistent low TSH, will trial decreasing his levothyroxine to 125 mcg. Recommend repeat TSH in 3-4 weeks (sometime during the week of april if patient is still here). Code status DNR DNI Prophylaxis Lovenox was discontinued earlier this hospitalization. Disposition Unknown Quality VTE Deep Vein Thrombosis/Pulmonary Embolism Present on Admission: No
--- NOTE | 2023-03-30 14:52 | PT-IP ANOTE ---
Pt declines PT treatment today. Will follow up next service date.
--- NOTE | 2023-03-30 15:29 | CM.DPC ---
Addendum entered by CHARITY Bradshaw 03/30/23 15:57: ADD: SW also Secure emailed the Temporary Protection Order to assigned [facility] Financial Deepika to review towards her attempts at approving pt for Medicaid LTC. BF Original Note: DCP Cont: SW attended virtual meeting this morning with Erlinda from [facility] legal team, Quality/Risk Yahir and CFO Ware and DESIREE Wilkins for weekly update from legal team. Per Erlinda, [facility] called me yesterday to inform me that Commissioner Verona did amber the VAPO petition restraining Wander Cotter from spending Gareth Cotter's funds.? We have ordered a copy of the Temporary Protection Order (TPO) and will forward it to you once we have it. Based on the online court docket, it appears to court set the follow-up evidentiary hearing for April 08, 2023 at 9:00 a.m Request from Erlinda to clarify with [facility] Financial Deepika if a Declaration of Financial gifting or Affadavit needed? Affadavit requires a notary, and Erlinda can either send one of their legal team members with a notary license or find a mobile financial notary in the area to come bedside in the hospital. A Declaration would not require a notary. Erlinda also requested support with asking pt if he knows how his social security is being spent while he is in the hospital. Unfortunately, per RN and MD, pt was started on new medications this weekend and now he is very somnolent/drowsy/groggy and not able to be alert enough to answer financial questions. CM coworker Sil willing to attempt tomorrow if pt more alert. JEOVANY attempted to contact the assigned [facility] Financial worker Deepika Trejo# [phone] [email or web address] and left a msg and email inquiring about clarification on if an Affidavit OR a Declaration needed. Plan: SW to follow closely for closely for pt to be able to discuss how his social security is being spent while he is in the hospital and clarification from [facility] regarding Declaration vs Affidavit for finances. CHARITY Bradshaw
[2023-03-31] MEDS: LEVOTHYROXINE 125 MCG TABLET PO (06:18)
[2023-03-31 07:00] VITALS: BP 143/64; PULSE 55; RESP 16; O2SAT 98
[2023-03-31] MEDS: METOPROLOL IR 25 MG TABLET 12.5 MG PO ×2 (09:07→21:04)
[2023-03-31] MEDS: GABAPENTIN 100 MG CAPSULE PO ×2 (09:07→21:06)
--- NOTE | 2023-03-31 11:23 | CM.DPC ---
DCP Cont. CHARITY met with pt to ask him a question that the attorneys wanted to know for the ongoing legal case. Please see below this CHARITY's secure email communication: CHARITY met with Gareth today to ask him the very specific question that you wanted us to ask him, ?Do you know how your social security money is being spent while you are here in the hospital?? He was alert and oriented when I met with him. He clearly stated in response, ?yes, I?m sure my boy is spending it.? When I asked him if he knew what his son was spending the money on, he replied, ?probably rent, stuff like that. Maybe my part of the rent.?
--- NOTE | 2023-03-31 11:40 | PT.IPTN ---
Addendum entered and electronically signed by Aashish Keen 04/01/23 09:05: Spoke with Pt on lack of participation with therapy over the last few days. Informed pt if he continues to refuse therapy he will not be on the case load. Pt understood this and agreed to work with therapy. Original Note: Current Diagnoses Weakness (12/14/22) Physical Therapy Treatment Note M2 PT-IP Current Condition Start: 12/15/22 09:27 Freq: NEEDED Status: Active Protocol: Document 03/15/23 16:35 DLM (Rec: 03/15/23 16:35 DLM [id number]) Physical Therapy Current Condition Current Condition Evaluation Date 03/11/23 Treatment Diagnosis Weakness, impaired gait Onset Date 12/14/22 M3 PT-IP Subjective Start: 12/15/22 09:27 Freq: NEEDED Status: Active Protocol: Document 03/31/23 13:46 TS (Rec: 03/31/23 13:57 TS [id number]) Subjective Physical Therapy Visit Type Type Treatment Note Visit Start Time 11:40 Visit Stop Time 12:08 Total Visit Minutes 28 Number of BOX SORTER Visits 9 Physical Therapy Visit Comments Patient Comments Pt continues to report being tired, depressed, required some motivation to participate with PT. M4 PT-IP Mobility and Gait Start: 12/15/22 09:27 Freq: NEEDED Status: Active Protocol: Document 03/31/23 13:46 TS (Rec: 03/31/23 13:57 TS [id number]) PT-Bed Mobility Assessment Supine to Sit Supine to Sit Moderate Assistance Scooting Scooting to Edge of Bed Contact Guard Assistance PT-Transfer Assessment Sit to and From Stand Sit to and from Stand Minimal Assistance,Maximum Assistance,1 Person Assistance ,Use of Upper Extremities Equipment Transfer Assistive Device Gait Belt,Front Wheeled Walker Orthotic/Prosthetic Devices or Brace: No Transfers Transfer Destination Bed,Chair Transfer Technique Ambulation Transfer Ability Level of Assist Contact Guard Assistance Comments Mobility Comments Supine to sit ModA for uprighting trunk, pt required cues for BUE support and for LEs over EOB. He performed sit to stand w/FWW Carlin from elevated bed. He ambulated to chair ~5' CGA with slow step to gait and toe touch wbering on L side. Sit to stand from chair MaxA x1 w/FWW, pt ambulated bakc to bed. Sit to stand from bed back to chair Carlin w/FWW, pt continues to ambulate with step to gait and toe touch on L side, requires cues for when it is safe to sit. Pt was left back in chair with chair alarm on, call light nearby, all needs met. Gait Assessment Gait Gait Assistance Required: Contact Guard Assist,1 Person Assist Distance (Feet) 15 Assistive Devices Assistive Device Gait Belt,Front Wheeled Walker Orthotic/Prosthetic Devices or Brace: No Gait Deviations General Gait Pattern Antalgic,Decreased Stride Length,Decreased Feet Clearance,Lateral Trunk Lean, Narrow Based Gait,Step-to Gait Factors Limiting Gait Function Factors Limiting Gait Function Decreased Activity Tolerance, Decreased Strength, Incoordination,Limited Range of Motion,Pain,Poor Balance, Poor Safety Awareness Comments Gait Comments See mobility comments PT-Balance Assessment Sitting Balance and Reactions Static Sitting Balance Ability Good Dynamic Sitting Balance Ability Fair Standing Balance and Reactions Static Standing Balance Ability Fair Dynamic Standing Balance Ability Poor Device Used FWW M5 PT-IP Objective Assessments Start: 12/15/22 09:27 Freq: NEEDED Status: Active Protocol: Document 03/11/23 11:01 SAK (Rec: 03/11/23 11:18 SAK [id number]) Orientation Orientation/Cognition Level of Alertness Alert Orientation Name,Age,Place,Situation Language Function Ability No Deficits Noted Safety Awareness Understands Safety Issues Memory Description Short Term Impaired Gross Range of Motion Upper Extremity ROM Assessment Within Functional Limits Lower Extremity ROM Assessment Bilaterally Impaired Impairments lacking full knee extension in sitting approx 30 deg from straight, ankle df to 0 hilda Strength Upper Extremity Strength Assessment Within Functional Limits Lower Extremity Strength Hip flex 3-/5 Knee ext right 3-/5, left 2+/5, flex 4-/5 right, 3-/5 left Ankle 4/5 right, df 4-/5 left, pf 3/ 5 left M6 PT-IP Treatment Start: 12/15/22 09:27 Freq: NEEDED Status: Active Protocol: Document 03/21/23 10:36 TS (Rec: 03/21/23 10:55 TS [id number]) Physical Therapy Treatment Exercises Exercises Ankle Pumps,Gluteal Sets,Heel Slides,Straight Leg Raises, Supine Hip Abduction Other Treatments Other Treatment Performed See mobility comments. M7 PT-IP Assessment and Plan Start: 12/15/22 09:27 Freq: NEEDED Status: Active Protocol: Document 03/31/23 13:46 TS (Rec: 03/31/23 13:57 TS [id number]) PT Summary Assessment and Plan Summary Progress Towards Goals Slow Progress due to Pain,Slow Progress due to Medical Issues,Slow Progress due to Activity Tolerance Assessment Summary Gareth is requiring increased assist for bed mobility this session due to decreased strength. He performed transfers x3 from bed to chair CGA w/FWW, he continues to be have poor balance with gait due to weakness limited mobility on L side. He was educated on the importance of continuing to mobilize with PT while here in hospital due to declining functional mobility . PT continues to recommend to SNF. Goals Bed Mobility Goal Independent Transfer Goal Contact Guard Assistance Gait Goal Contact Guard Assistance Gait Distance 20 Days to Meet Goals 7 Frequency of Treatment Frequency Of Treatment Once a Day Treatment Plan Physical Therapy Treatment Plan Bed Mobility Training,Transfer Training,Gait Training, Therapeutic Exercise,Balance Retraining,Discharge Planning Other Recommendations and Next Treatment bed mob, transfers, gait if Focus able tolerate using FWW, Continue safety education. Weight Bearing Status Weight Bearing Status Full Weight Bearing Recommendations To Nursing Amount of Assist Needed 1 Person Assist Discharge Recommendations PT Discharge Recommendations SNF Rehab Transportation Needs at Discharge Private Vehicle,Wheelchair/ Cabulance
[2023-03-31] MEDS: HYDROCODONE/ACET 10/325 TABLET 1 TAB PO (12:38)
--- NOTE | 2023-03-31 13:41 | PM.PN.1 ---
Subjective Subjective Interval history: No new complaints. Exam Vital Signs (past 8 hours): - 03/31/23 07:00 Pulse Rate 55 L Respiratory Rate 16 Blood Pressure 143/64 H Pulse Oximetry 98 Oxygen Delivery Method Room Air Oxygen Flow Rate 0 Narrative Exam Narrative: GEN: no acute distress Objective Labs 03/07/23 09:20 03/07/23 09:20 PFSH Medical History Cerebrovascular accident Chronic GERD Dementia Hyperlipidemia Hypertension Social History household members: children Smoking Status: Former smoker alcohol intake: current Assessment & Plan Assessment & Plan narrative: 1. Unstable discharge for debilitated elderly male with multiple medical comorbidities Patient remains hospitalized pending appropriate placement.? Discharge planning continues to work with the state regarding long-term care and Medicaid eligibility. 2. History of stroke with left-sided weakness Chronic, stable 3. Coronary artery disease Status post stenting.? No acute symptoms.? Continue metoprolol 4. Hypertension Well controlled on metoprolol. 5. ?Depression with vegetative symptoms Continue Zoloft.? Stopping marinol as nursing staff reported no issues with his dietary intake recently. Remeron will also be discontinued due to grogginess during the day. Okay to continue with prn ambien but should be used sparingly. 6. Hypothyroidism Last labs performed March 07 revealed a TSH 0.02 with a free T4 of 1.73. Currently, TSH is up to 0.15 and free T4 is 1.49. Although his free T4 is within normal range, he likely could tolerate it a little bit lower. Given his persistent low TSH, will trial decreasing his levothyroxine to 125 mcg. Recommend repeat TSH in 3-4 weeks (sometime during the week of april if patient is still here). Code status DNR DNI Prophylaxis Lovenox was discontinued earlier this hospitalization. Disposition Unknown Quality VTE Deep Vein Thrombosis/Pulmonary Embolism Present on Admission: No
[2023-03-31 19:00] VITALS: BP 125/60; PULSE 65; RESP 18; TEMP 36.5; O2SAT 98
[2023-03-31] MEDS: SERTRALINE 50 MG TABLET 100 MG PO (21:04)
[2023-04-01] MEDS: HYDROCODONE/ACET 10/325 TABLET 1 TAB PO ×3 (02:22→21:56)
[2023-04-01] MEDS: ZOLPIDEM 5 MG TABLET PO ×2 (03:33→20:29)
[2023-04-01] MEDS: LEVOTHYROXINE 125 MCG TABLET PO (05:33)
[2023-04-01 07:00] VITALS: BP 118/53; PULSE 60; RESP 16; TEMP 36.9; O2SAT 98
[2023-04-01] MEDS: METOPROLOL IR 25 MG TABLET 12.5 MG PO ×2 (09:43→20:28)
[2023-04-01] MEDS: GABAPENTIN 100 MG CAPSULE PO ×2 (09:43→20:28)
--- NOTE | 2023-04-01 13:05 | PM.PN.1 ---
Subjective Subjective Interval history: No new complaints. Exam Vital Signs (past 8 hours): - 04/01/23 07:00 Temperature 98.5 F Pulse Rate 60 Respiratory Rate 16 Blood Pressure 118/53 L Pulse Oximetry 98 Oxygen Flow Rate 0 Oxygen Delivery Method Room Air Oxygen Flow Rate 0 Narrative Exam Narrative: GEN: no acute distress Objective Labs 03/07/23 09:20 03/07/23 09:20 PFSH Medical History Cerebrovascular accident Chronic GERD Dementia Hyperlipidemia Hypertension Social History household members: children Smoking Status: Former smoker alcohol intake: current Assessment & Plan Assessment & Plan narrative: 1. Unstable discharge for debilitated elderly male with multiple medical comorbidities Patient remains hospitalized pending appropriate placement.? Discharge planning continues to work with the state regarding long-term care and Medicaid eligibility. 2. History of stroke with left-sided weakness Chronic, stable 3. Coronary artery disease Status post stenting.? No acute symptoms.? Continue metoprolol 4. Hypertension Well controlled on metoprolol. 5. ?Depression with vegetative symptoms Continue Zoloft.? Stopping marinol as nursing staff reported no issues with his dietary intake recently. Remeron will also be discontinued due to grogginess during the day. Okay to continue with prn ambien but should be used sparingly. 6. Hypothyroidism Last labs performed March 07 revealed a TSH 0.02 with a free T4 of 1.73. Currently, TSH is up to 0.15 and free T4 is 1.49. Although his free T4 is within normal range, he likely could tolerate it a little bit lower. Given his persistent low TSH, trailling decrease in his levothyroxine to 125 mcg. Recommend repeat TSH in 3-4 weeks (sometime during the week of april if patient is still here). Code status DNR DNI Prophylaxis Lovenox was discontinued earlier this hospitalization. Disposition Unknown Quality VTE Deep Vein Thrombosis/Pulmonary Embolism Present on Admission: No
--- NOTE | 2023-04-01 13:52 | PT-IP ANOTE ---
Pt refused PT this afternoon. Pt reports he is not improving and does not want to work with physical therapy anymore. This therapist explained the pt's desire to not be on the therapy list to hospitalist but he would like him to stay on the census for physical therapy and to continue to check in with him. I spoke with pt about coming to see him every other day instead of once a day, pt was in agreement on this plan. This therapist also discussed with DONN Jones that pt would benefit from mobilizing more often and that it would beneficial to pt if nursing could assist. She reported he refused earlier today with nursing.
--- NOTE | 2023-04-01 17:21 | PC.NURSE ---
Day shift: This publications writer accompanied Fruita Bookya civil engineering design draftsperson into room and legal papers given to Pt and Pt requested they be put in chart. This was done. Pt was asked if he wanted to read or look at them now and he said Put in chart for now please.
[2023-04-01 20:00] VITALS: BP 125/61; PULSE 59; RESP 17; TEMP 36.3; O2SAT 97
[2023-04-01] MEDS: diazePAM 5 MG TABLET PO (20:28)
[2023-04-01] MEDS: SERTRALINE 50 MG TABLET 100 MG PO (20:28)
[2023-04-02] MEDS: LEVOTHYROXINE 125 MCG TABLET PO (06:39)
[2023-04-02] MEDS: GABAPENTIN 100 MG CAPSULE PO ×2 (09:07→21:14)
[2023-04-02] MEDS: METOPROLOL IR 25 MG TABLET 12.5 MG PO ×2 (09:07→21:14)
[2023-04-02 09:09] VITALS: BP 102/54; PULSE 54; RESP 17; TEMP 36.1; O2SAT 100
--- NOTE | 2023-04-02 12:35 | PM.PN.1 ---
Subjective Subjective Interval history: No new complaints. Exam Vital Signs (past 8 hours): - 04/02/23 09:09 Temperature 97.0 F L Pulse Rate 54 L Respiratory Rate 17 Blood Pressure 102/54 L Pulse Oximetry 100 Oxygen Flow Rate 0 Oxygen Delivery Method Room Air Oxygen Flow Rate 0 Narrative Exam Narrative: GEN: no acute distress Objective Labs 03/07/23 09:20 03/07/23 09:20 PFSH Medical History Cerebrovascular accident Chronic GERD Dementia Hyperlipidemia Hypertension Social History household members: children Smoking Status: Former smoker alcohol intake: current Assessment & Plan Assessment & Plan narrative: 1. Unstable discharge for debilitated elderly male with multiple medical comorbidities Patient remains hospitalized pending appropriate placement.? Discharge planning continues to work with the state regarding long-term care and Medicaid eligibility. 2. History of stroke with left-sided weakness Chronic, stable 3. Coronary artery disease Status post stenting.? No acute symptoms.? Continue metoprolol 4. Hypertension Well controlled on metoprolol. 5. ?Depression with vegetative symptoms Continue Zoloft.? Stopping marinol as nursing staff reported no issues with his dietary intake recently. Remeron will also be discontinued due to grogginess during the day. Okay to continue with prn ambien but should be used sparingly. 6. Hypothyroidism Last labs performed March 07 revealed a TSH 0.02 with a free T4 of 1.73. Currently, TSH is up to 0.15 and free T4 is 1.49. Although his free T4 is within normal range, he likely could tolerate it a little bit lower. Given his persistent low TSH, trailling decrease in his levothyroxine to 125 mcg. Recommend repeat TSH in 3-4 weeks (sometime during the week of april if patient is still here). Code status DNR DNI Prophylaxis Lovenox was discontinued earlier this hospitalization. Disposition Unknown Quality VTE Deep Vein Thrombosis/Pulmonary Embolism Present on Admission: No
--- NOTE | 2023-04-02 13:22 | PT.IPTN ---
Current Diagnoses Weakness (12/14/22) Physical Therapy Treatment Note M2 PT-IP Current Condition Start: 12/15/22 09:27 Freq: NEEDED Status: Active Protocol: Document 03/15/23 16:35 DLM (Rec: 03/15/23 16:35 DLM [id number]) Physical Therapy Current Condition Current Condition Evaluation Date 03/11/23 Treatment Diagnosis Weakness, impaired gait Onset Date 12/14/22 M3 PT-IP Subjective Start: 12/15/22 09:27 Freq: NEEDED Status: Active Protocol: Document 04/02/23 14:37 TS (Rec: 04/02/23 14:52 TS [id number]) Subjective Physical Therapy Visit Type Type Treatment Note Visit Start Time 13:22 Visit Stop Time 14:00 Total Visit Minutes 38 Number of LICENSED GUIDE Visits 10 Physical Therapy Visit Comments Patient Comments Pt found resting in bed, reports he might be leaving the , agreeable to PT. M4 PT-IP Mobility and Gait Start: 12/15/22 09:27 Freq: NEEDED Status: Active Protocol: Document 04/02/23 14:37 TS (Rec: 04/02/23 14:52 TS [id number]) PT-Bed Mobility Assessment Supine to Sit Supine to Sit Maximum Assistance Scooting Scooting to Edge of Bed Minimal Assistance Scooting Up and Down in Bed Standby Assistance PT-Transfer Assessment Sit to and From Stand Sit to and from Stand Minimal Assistance,1 Person Assistance,Use of Upper Extremities Equipment Transfer Assistive Device Gait Belt,Front Wheeled Walker Orthotic/Prosthetic Devices or Brace: No Transfers Transfer Destination Bed Transfer Technique Stand Pivot Comments Mobility Comments Supine to sit MaxA for uprighting trunk with handheld assist and LEs over EOB. Sit to stand from bed Carlin with cues for feet flat on floor and pushing through heels. He ambulatd ~15'CGA/Carlin for turning in FWW, pt continues to ambulate toe touch on LLE and fatigues quickly. Pt requested to use commode, required assist with pericare. Sit to stand from commode Carlin w/FWW to stand pivot onto bed, pt is impulsive to sit down before it is safe. Sit to supine Carlin for LEs into bed. pt scooted to [facility] SBA with cues for B handrail support. pt was left in bed with call light nearby, all needs met. Gait Assessment Gait Gait Assistance Required: Contact Guard Assist,Minimum Assistance,1 Person Assist Distance (Feet) 15 Assistive Devices Assistive Device Gait Belt,Front Wheeled Walker Orthotic/Prosthetic Devices or Brace: No Gait Deviations General Gait Pattern Antalgic,Decreased Stride Length,Decreased Feet Clearance,Lateral Trunk Lean, Narrow Based Gait,Step-to Gait Factors Limiting Gait Function Factors Limiting Gait Function Decreased Activity Tolerance, Decreased Strength, Incoordination,Limited Range of Motion,Pain,Poor Balance, Poor Safety Awareness Comments Gait Comments See mobility comments PT-Balance Assessment Sitting Balance and Reactions Static Sitting Balance Ability Good Dynamic Sitting Balance Ability Fair Standing Balance and Reactions Static Standing Balance Ability Fair Dynamic Standing Balance Ability Poor Device Used FWW M5 PT-IP Objective Assessments Start: 12/15/22 09:27 Freq: NEEDED Status: Active Protocol: Document 03/11/23 11:01 SAK (Rec: 03/11/23 11:18 SAK [id number]) Orientation Orientation/Cognition Level of Alertness Alert Orientation Name,Age,Place,Situation Language Function Ability No Deficits Noted Safety Awareness Understands Safety Issues Memory Description Short Term Impaired Gross Range of Motion Upper Extremity ROM Assessment Within Functional Limits Lower Extremity ROM Assessment Bilaterally Impaired Impairments lacking full knee extension in sitting approx 30 deg from straight, ankle df to 0 hilda Strength Upper Extremity Strength Assessment Within Functional Limits Lower Extremity Strength Hip flex 3-/5 Knee ext right 3-/5, left 2+/5, flex 4-/5 right, 3-/5 left Ankle 4/5 right, df 4-/5 left, pf 3/ 5 left M6 PT-IP Treatment Start: 12/15/22 09:27 Freq: NEEDED Status: Active Protocol: Document 03/21/23 10:36 TS (Rec: 03/21/23 10:55 TS [id number]) Physical Therapy Treatment Exercises Exercises Ankle Pumps,Gluteal Sets,Heel Slides,Straight Leg Raises, Supine Hip Abduction Other Treatments Other Treatment Performed See mobility comments. M7 PT-IP Assessment and Plan Start: 12/15/22 09:27 Freq: NEEDED Status: Active Protocol: Document 04/02/23 14:37 TS (Rec: 04/02/23 14:52 TS [id number]) PT Summary Assessment and Plan Potential Rehabilitation Potential Fair Summary Impairments ROM,Strength,Balance,Gait Progress Towards Goals Slow Progress due to Pain,Slow Progress due to Medical Issues,Slow Progress due to Activity Tolerance Assessment Summary Gareth continues to make slow progress with his mobility. He is requiring increased assist to MaxA for supine to sit for sitting up right EOB. He is Carlin for sit to stands from bed and commode w/ use of FWW. He continues to ambulate short distances ~15' in room CGA/Carlin, continues to be very unsteady due to weakness and toe touch wbering on LLE. PT continues to recommend SNF rehab. Goals Bed Mobility Goal Independent Transfer Goal Contact Guard Assistance Gait Goal Contact Guard Assistance Gait Distance 20 Days to Meet Goals 7 Frequency of Treatment Frequency Of Treatment Once a Day Treatment Plan Physical Therapy Treatment Plan Bed Mobility Training,Transfer Training,Gait Training, Therapeutic Exercise,Balance Retraining,Discharge Planning Other Recommendations and Next Treatment pt will be seen for PT every Focus other day. Weight Bearing Status Weight Bearing Status Full Weight Bearing Recommendations To Nursing Amount of Assist Needed 1 Person Assist Discharge Recommendations PT Discharge Recommendations SNF Rehab Transportation Needs at Discharge Private Vehicle,Wheelchair/ Cabulance
[2023-04-02] MEDS: HYDROCODONE/ACET 10/325 TABLET 1 TAB PO ×2 (16:38→21:14)
[2023-04-02] MEDS: SERTRALINE 50 MG TABLET 100 MG PO (21:15)
[2023-04-02] MEDS: ZOLPIDEM 5 MG TABLET PO (21:15)
[2023-04-03] MEDS: LEVOTHYROXINE 125 MCG TABLET PO (05:38)
[2023-04-03 07:00] VITALS: BP 123/54; PULSE 53; RESP 18; TEMP 36.9; O2SAT 97
[2023-04-03] MEDS: HYDROCODONE/ACET 10/325 TABLET 1 TAB PO ×3 (08:08→20:21)
[2023-04-03] MEDS: GABAPENTIN 100 MG CAPSULE PO ×2 (08:09→20:22)
[2023-04-03] MEDS: DOCUSATE 100 MG CAPSULE PO (08:09)
[2023-04-03] MEDS: droNABinol 2.5 MG CAPSULE PO (15:16)
[2023-04-03 16:12] VITALS: BP 110/53; PULSE 49; RESP 16; TEMP 36.6; O2SAT 97
[2023-04-03] MEDS: ZOLPIDEM 5 MG TABLET PO (20:20)
[2023-04-03] MEDS: SERTRALINE 50 MG TABLET 100 MG PO (20:23)
[2023-04-03 20:26] VITALS: BP 121/45; PULSE 16; RESP 16; TEMP 36.6; O2SAT 99
--- NOTE | 2023-04-03 21:22 | PM.PN.1 ---
Subjective Subjective Date Patient Seen: 04/03/23 Time Patient Seen: 08:00 Interval history: He notes marinol was working for his appetite. Medical staff notes he is not eating well. Exam Vital Signs (past 8 hours): - 04/03/23 16:12 04/03/23 20:26 Temperature 97.8 F 97.8 F Pulse Rate 49 L 16 L Respiratory Rate 16 16 Blood Pressure 110/53 L 121/45 L Pulse Oximetry 97 99 Oxygen Delivery Method Room Air Oxygen Flow Rate 0 Narrative Exam Narrative: GEN: no acute distress Objective Labs 03/07/23 09:20 03/07/23 09:20 PFSH Medical History Cerebrovascular accident Chronic GERD Dementia Hyperlipidemia Hypertension Social History household members: children Smoking Status: Former smoker alcohol intake: current Assessment & Plan Assessment & Plan narrative: 1. Unstable discharge for debilitated elderly male with multiple medical comorbidities Patient remains hospitalized pending appropriate placement.? Discharge planning continues to work with the state regarding long-term care and Medicaid eligibility. 2. History of stroke with left-sided weakness Chronic, stable 3. Coronary artery disease Status post stenting.? No acute symptoms.? Continue metoprolol 4. Hypertension Well controlled on metoprolol. 5. ?Depression Continue Zoloft 6. Poor appetite -had previously been on remeron and marinol -these were stopped due to report of patient lethargy -now eating worse -restart marinol but start once daily dosing for now instead of BID 6. Hypothyroidism Last labs performed March 07 revealed a TSH 0.02 with a free T4 of 1.73. Currently, TSH is up to 0.15 and free T4 is 1.49. Although his free T4 is within normal range, he likely could tolerate it a little bit lower. Given his persistent low TSH, trailling decrease in his levothyroxine to 125 mcg. Recommend repeat TSH in 3-4 weeks (sometime during the week of april if patient is still here). Quality VTE Deep Vein Thrombosis/Pulmonary Embolism Present on Admission: No
[2023-04-04] MEDS: LEVOTHYROXINE 125 MCG TABLET PO (05:06)
[2023-04-04 06:48] VITALS: BP 124/52; PULSE 53; RESP 16; TEMP 36.7; O2SAT 98
[2023-04-04 07:00] VITALS: RESP 18
--- NOTE | 2023-04-04 07:15 | P.PN_ITS ---
Subjective Subjective Interval history: Patient upset he had to move rooms and wants to go back to his old room or near it. Arranging this for him. Exam Vital Signs (past 8 hours): - 04/04/23 06:48 Temperature 98.0 F Pulse Rate 53 L Respiratory Rate 16 Blood Pressure 124/52 L Pulse Oximetry 98 Oxygen Delivery Method Room Air Oxygen Flow Rate 0 Narrative Exam Narrative: GEN: no acute distress Objective Labs 03/07/23 09:20 03/07/23 09:20 PFSH Medical History Cerebrovascular accident Chronic GERD Dementia Hyperlipidemia Hypertension Social History household members: children Smoking Status: Former smoker alcohol intake: current Assessment & Plan Assessment & Plan narrative: 1. Unstable discharge for debilitated elderly male with multiple medical comorbidities Patient remains hospitalized pending appropriate placement.? Discharge planning continues to work with the state regarding long-term care and Medicaid eligibility. 2. History of stroke with left-sided weakness Chronic, stable 3. Coronary artery disease Status post stenting.? No acute symptoms.? Continue metoprolol 4. Hypertension Well controlled on metoprolol. 5. ?Depression Continue Zoloft 6. Poor appetite -had previously been on remeron and marinol -these were stopped due to report of patient lethargy -now eating worse -restart marinol but start once daily dosing for now instead of BID 6. Hypothyroidism Last labs performed March 07 revealed a TSH 0.02 with a free T4 of 1.73. Currently, TSH is up to 0.15 and free T4 is 1.49. Although his free T4 is wit hin normal range, he likely could tolerate it a little bit lower. Given his persistent low TSH, trailling decrease in his levothyroxine to 125 mcg. Recommend repeat TSH in 3-4 weeks (sometime during the week of april if patient is still here). Quality VTE Deep Vein Thrombosis/Pulmonary Embolism Present on Admission: No
[2023-04-04] MEDS: droNABinol 2.5 MG CAPSULE PO (10:11)
[2023-04-04] MEDS: GABAPENTIN 100 MG CAPSULE PO ×2 (10:11→23:37)
[2023-04-04] MEDS: METOPROLOL IR 25 MG TABLET 12.5 MG PO ×2 (10:11→23:37)
--- NOTE | 2023-04-04 11:23 | PT-IP ANOTE ---
Pt refused to work with PT today. He is upset about being moved to a different room that he calls the room would like therapist to notify hospitalist of desire to move back to his old room.
--- NOTE | 2023-04-04 12:52 | PT.IPTN ---
Current Diagnoses Weakness (12/14/22) Physical Therapy Treatment Note M2 PT-IP Current Condition Start: 12/15/22 09:27 Freq: NEEDED Status: Active Protocol: Document 03/15/23 16:35 DLM (Rec: 03/15/23 16:35 DLM [id number]) Physical Therapy Current Condition Current Condition Evaluation Date 03/11/23 Treatment Diagnosis Weakness, impaired gait Onset Date 12/14/22 M3 PT-IP Subjective Start: 12/15/22 09:27 Freq: NEEDED Status: Active Protocol: Document 04/04/23 12:45 AB (Rec: 04/04/23 12:52 AB [id number]) Subjective Physical Therapy Visit Type Type Administrative Note Notes Per APPAREL SALES LEADER, pt refused PT today. pt has been inconsistent with participation with multiple refusals. pt has plateaued in progress and has low carryover of functional mobility progress made due to refusals and pt per choice just wants to stay in bed. pt was educated multiple times regarding PT importance and participation. pt aware of d/ c. medical case manager and hospitalist also were informed . M7 PT-IP Assessment and Plan Start: 12/15/22 09:27 Freq: NEEDED Status: Active Protocol: Document 04/04/23 12:45 AB (Rec: 04/04/23 12:52 AB [id number]) PT Summary Assessment and Plan Frequency of Treatment Frequency Of Treatment Discharge
--- NOTE | 2023-04-04 15:43 | PC.NURSE ---
Pt status remains essentially unchanged Denies discomfort Call light w/in reach, pt calls appropriately for needs Continue w/plan of care.
--- NOTE | 2023-04-04 18:44 | PC.NURSE ---
PATIENT AND ALL BELONGINGS TO ROOM 221
--- NOTE | 2023-04-04 21:38 | PC.NURSE ---
Pt was moved back from room floor around 184. pt has been sleeping since then. Bed alarm in place will wait until pt wakes up to do physical assessment and give night medications.
[2023-04-04] MEDS: SERTRALINE 50 MG TABLET 100 MG PO (23:37)
[2023-04-05] VITALS: BP 125/51; PULSE 57; RESP 17; TEMP 36.5; O2SAT 98
--- NOTE | 2023-04-05 07:41 | P.PN_ITS ---
Subjective Subjective Interval history: Patient happy to move rooms. Exam Vital Signs (past 8 hours): - 04/05/23 00:00 Temperature 97.7 F Pulse Rate 57 L Respiratory Rate 17 Blood Pressure 125/51 L Pulse Oximetry 98 Oxygen Delivery Method Room Air Oxygen Flow Rate 0 Narrative Exam Narrative: GEN: no acute distress Objective Labs 03/07/23 09:20 03/07/23 09:20 PFSH Medical History Cerebrovascular accident Chronic GERD Dementia Hyperlipidemia Hypertension Social History household members: children Smoking Status: Former smoker alcohol intake: current Assessment & Plan Assessment & Plan narrative: 1. Unstable discharge for debilitated elderly male with multiple medical comorbidities Patient remains hospitalized pending appropriate placement.? Discharge planning continues to work with the state regarding long-term care and Medicaid el igibility. 2. History of stroke with left-sided weakness Chronic, stable 3. Coronary artery disease Status post stenting.? No acute symptoms.? Continue metoprolol 4. Hypertension Well controlled on metoprolol. 5. ?Depression Continue Zoloft 6. Poor appetite -had previously been on remeron and marinol -these were stopped due to report of patient lethargy -now eating worse -restart marinol but start once daily dosing for now instead of BID 6. Hypothyroidism Last labs performed March 07 revealed a TSH 0.02 with a free T4 of 1.73. Currently, TSH is up to 0.15 and free T4 is 1.49. Although his free T4 is within normal range, he likely could tolerate it a little bit lower. Given his persistent low TSH, trailling decrease in his levothyroxine to 125 mcg. Recommend repeat TSH in 3-4 weeks (sometime during the week of april if patient is still here). Quality VTE Deep Vein Thrombosis/Pulmonary Embolism Present on Admission: No
[2023-04-05 08:00] VITALS: BP 144/66; PULSE 58; RESP 16; TEMP 36.5; O2SAT 97
[2023-04-05] MEDS: HYDROCODONE/ACET 10/325 TABLET 1 TAB PO ×2 (08:51→20:21)
[2023-04-05] MEDS: GABAPENTIN 100 MG CAPSULE PO ×2 (08:51→20:20)
[2023-04-05] MEDS: METOPROLOL IR 25 MG TABLET 12.5 MG PO ×2 (08:51→20:20)
[2023-04-05] MEDS: droNABinol 2.5 MG CAPSULE PO (08:51)
[2023-04-05 08:55] VITALS: BP 140/95; PULSE 62
--- NOTE | 2023-04-05 14:14 | CM.DPNOTE ---
Placement/Medicaid Met bedside with patient last week, reviewed the Request for Information Letter emailed to this MORTGAGE LOAN SPECIALIST from [facility] financial worker Lina Whitlock. From information provided by patient, legal group Deborah drafted a declaration letter which this MORTGAGE LOAN SPECIALIST reviewed w/patient today at bedside, patient agreed to it's validity and signed this declaration. DONN Fay and this MORTGAGE LOAN SPECIALIST acted as witnesses. Emailed the signed declaration to Deepika Whitlock, [facility] financial worker at '[employer] ([facility])' <[email or web address]> In this email, included the Request for Information letter, the signed declaration letter, the VAPO Petition and the Temporary Protection Order, supplied by Deborah. JW
[2023-04-05] MEDS: SERTRALINE 50 MG TABLET 100 MG PO (20:20)
[2023-04-05] MEDS: DOCUSATE 100 MG CAPSULE PO (20:22)
[2023-04-05 21:15] VITALS: BP 117/59; PULSE 60; RESP 18; TEMP 36.6; O2SAT 96
[2023-04-05] MEDS: ZOLPIDEM 5 MG TABLET PO (22:47)
[2023-04-06] MEDS: LEVOTHYROXINE 125 MCG TABLET PO (05:52)
[2023-04-06 08:00] VITALS: BP 131/59; PULSE 57; RESP 18; TEMP 36.4; O2SAT 99
--- NOTE | 2023-04-06 08:59 | PM.PN.1 ---
Subjective Subjective Interval history: No pain or dyspnea. Sleeping well at night. Walking a bit with PT. Exam Vital Signs (past 8 hours): Oxygen Delivery Method Room Air Oxygen Flow Rate 0 Narrative Exam Narrative: NAD, normal speech. Lungs CTA, normal effort CV RRR. No MGR Abdomen soft, ND No leg edema. No skin rash. Objective Labs 03/07/23 09:20 03/07/23 09:20 [facility] Medical History Cerebrovascular accident Chronic GERD Dementia Hyperlipidemia Hypertension Social History household members: children Smoking Status: Former smoker alcohol intake: current Assessment & Plan Assessment & Plan narrative: 1. Unstable discharge for debilitated elderly male with multiple medical comorbidities Patient remains hospitalized pending appropriate placement.? Discharge planning continues to work with the state regarding long-term care and Medicaid eligibility. 2. History of stroke with left-sided weakness, POA and stable. -Monitor. 3. Coronary artery disease (PCI), POA and stable. ? Continue metoprolol. Monitor. 4. Hypertension, POA and stable. Well controlled on metoprolol. 5. ?Depression, POA and stable. Continue Zoloft 6. Poor appetite, POA and stable. -had previously been on remeron and marinol -these were stopped due to report of patient lethargy -now eating worse -restart marinol but start once daily dosing for now instead of BID 6. Hypothyroidism, POA and stable. Last labs performed March 07 revealed a TSH 0.02 with a free T4 of 1.73.? Currently, TSH is up to 0.15 and free T4 is 1.49.? Although his free T4 is within normal range, he likely could tolerate it a little bit lower.? Given his persistent low TSH, trailling decrease in his levothyroxine to 125 mcg.? Recommend repeat TSH in 3-4 weeks (sometime during the of april if patient is still here). Quality VTE Deep Vein Thrombosis/Pulmonary Embolism Present on Admission: No Time Spent With Patient Time with patient: less than 30 minutes Quality VTE Deep Vein Thrombosis/Pulmonary Embolism Present on Admission: No
[2023-04-06] MEDS: METOPROLOL IR 25 MG TABLET 12.5 MG PO ×2 (09:18→20:30)
[2023-04-06] MEDS: HYDROCODONE/ACET 10/325 TABLET 1 TAB PO ×3 (09:18→20:31)
[2023-04-06] MEDS: droNABinol 2.5 MG CAPSULE PO (09:18)
[2023-04-06] MEDS: GABAPENTIN 100 MG CAPSULE PO ×2 (09:19→20:30)
[2023-04-06] MEDS: DOCUSATE 100 MG CAPSULE PO (09:19)
--- NOTE | 2023-04-06 15:28 | CM.DPC ---
DCP Cont: JEOVANY attended virtual meeting this morning with Erlinda from [employer] legal team, Interim Director Ashley and CFO Ware and DESIREE Wilkins for weekly update from legal team. Per Erlinda, pt's VAPO hearing is still scheduled for 04/08 at 0900 and JEOVANY confirmed that IS set up Zoom on CM tablet for pt to participate in the hearing. Pt's next Guardianship hearing is currently scheduled for Apr 17 but if [facility] has not made determination of Medicaid eligibility and potential Guardian not identified then that hearing would likely be rescheduled for a week or so later. Erlinda emailed a copy of Notice of Exhibits for Hearing on Petition for Protection Order to be provided to pt and then JEOVANY signed the Return of Service and emailed back to Erlinda. JEOVANY called and left a msg with [facility] Financial reviewer Deepika ([phone]) to confirm if she received the scanned and emailed Declaration of Financial distribution signed by patient and return msg from Deepika that she did not receive and JEOVANY re-emailed and faxed. CHARITY Bradshaw
[2023-04-06 19:00] VITALS: BP 112/62; PULSE 55; RESP 18; TEMP 36.4; O2SAT 98
[2023-04-06] MEDS: SERTRALINE 50 MG TABLET 100 MG PO (20:30)
--- NOTE | 2023-04-06 23:01 | PC.NURSE ---
Addendum entered by Graciela Gaspar R.N. 04/07/23 06:57: Slept most of night. Never requested sleeping pill. Original Note: Patient is alert and oriented except did not know month or day of month tongith. Breath sounds CTA with RA sat of 98%. HRR but has been bradycardic intermittently. Denies nausea. BT present and BM earlier today but is incontinent of stool. Voiding per urinal but also intermittently incontinent of urine; denies dysuria. Is able to turn himself in bed. Gets out of bed with walker and 1 assist; PT has discontinued him due to multiple refusals to participate in therapy. Coccyx area is light pink but blanchable and has no open areas. Skin is dry. Complained of 8/10 chronic back pain so was medicated with vicodin at 2030 and was asleep on reassessment and remains asleep at this time. Fall risk score remains high and bed alarm is activated.
[2023-04-07] MEDS: LEVOTHYROXINE 125 MCG TABLET PO (05:34)
[2023-04-07 07:00] VITALS: BP 126/55; PULSE 53; RESP 16; TEMP 35.8; O2SAT 98
[2023-04-07] MEDS: HYDROCODONE/ACET 10/325 TABLET 1 TAB PO ×3 (08:22→20:12)
[2023-04-07] MEDS: GABAPENTIN 100 MG CAPSULE PO ×2 (08:22→20:13)
[2023-04-07] MEDS: DOCUSATE 100 MG CAPSULE PO (08:22)
--- NOTE | 2023-04-07 09:17 | P.PN_ITS ---
Subjective Subjective Interval history: Slept well. No issues today. Denies pain, dyspnea, constipation or other concerns. Exam Vital Signs (past 8 hours): - 04/07/23 07:00 Temperature 96.4 F L Pulse Rate 53 L Respiratory Rate 16 Blood Pressure 126/55 L Pulse Oximetry 98 Oxygen Flow Rate 0 Oxygen Delivery Method Room Air Oxygen Flow Rate 0 Narrative Exam Narrative: NAD, normal speech and calm. Atraumatic head, EOMI. Neck supple and midline trachea. Lungs CTA, normal rate and effort. Heart RRR, without murmur, gallop, or rub. Abdomen Soft, NT, ND No leg edema. No skin rash. Objective Labs 03/07/23 09:20 03/07/23 09:20 [facility] Medical History Cerebrovascular accident Chronic GERD Dementia Hyperlipidemia Hypertension Social History household members: children Smoking Status: Former smoker alcohol intake: current Assessment & Plan Assessment & Plan narrative: 1. Unstable discharge for debilitated elderly male with multiple medical comorbidities Patient remains hospitalized pending appropriate placement.? Discharge planning continues to work with the state regarding long-term care and Medicaid eligibility. 2. History of stroke with left-sided weakness, POA and stable. -Monitor. 3. Coronary artery disease (PCI), POA and stable. ?? Continue metoprolol. Monitor. 4. Hypertension, POA and stable. Well controlled on metoprolol. 5. ?Depression, POA and stable. Continue Zoloft 6. Poor appetite, POA and stable. -had previously been on remeron and marinol -these were stopped due to report of patient lethargy -now eating worse -restart marinol but start once daily dosing for now instead of BID 6. Hypothyroidism, POA and stable. Last labs performed March 07 revealed a TSH 0.02 with a free T4 of 1.73.? Currently, TSH is up to 0.15 and free T4 is 1.49.? Although his free T4 is within normal range, he likely could tolerate it a little bit lower.? Given his persistent low TSH, trailling decrease in his levothyroxine to 125 mcg.? Recommend repeat TSH in 3-4 weeks (sometime during the week of april if patient is still here). Time Spent With Patient Time with patient: less than 30 minutes Quality VTE Deep Vein Thrombosis/Pulmonary Embolism Present on Admission: No
[2023-04-07] MEDS: polyethylene glycoL 3350 17 GM POWD.PACK PO (16:04)
[2023-04-07 19:00] VITALS: BP 121/63; PULSE 61; RESP 18; TEMP 36.3; O2SAT 96
[2023-04-07] MEDS: SERTRALINE 50 MG TABLET 100 MG PO (20:11)
[2023-04-07] MEDS: ZOLPIDEM 5 MG TABLET PO (20:11)
[2023-04-07] MEDS: METOPROLOL IR 25 MG TABLET 12.5 MG PO (20:12)
[2023-04-08] MEDS: LEVOTHYROXINE 125 MCG TABLET PO (05:17)
[2023-04-08 07:00] VITALS: BP 117/54; PULSE 58; RESP 18; TEMP 36; O2SAT 94
[2023-04-08 08:41] VITALS: BP 117/54; PULSE 58; RESP 18; TEMP 36; O2SAT 94
[2023-04-08] MEDS: polyethylene glycoL 3350 17 GM POWD.PACK PO (09:51)
[2023-04-08] MEDS: GABAPENTIN 100 MG CAPSULE PO ×2 (09:51→21:12)
--- NOTE | 2023-04-08 12:21 | PM.PN.1 ---
Subjective Subjective Interval history: No new complaints, doing well. Exam Vital Signs (past 8 hours): - 04/08/23 07:00 04/08/23 08:41 Temperature 96.8 F L 96.8 F L Pulse Rate 58 L 58 L Respiratory Rate 18 18 Blood Pressure 117/54 L 117/54 L Pulse Oximetry 94 94 Oxygen Flow Rate 0 0 Oxygen Delivery Method Room Air Oxygen Flow Rate 0 Narrative Exam Narrative: NAD, normal speech and calm. Atraumatic head, EOMI. Neck supple and midline trachea. Lungs CTA, normal rate and effort. Heart RRR, without murmur, gallop, or rub. Abdomen Soft, NT, ND No leg edema. No skin rash. Objective Labs 03/07/23 09:20 03/07/23 09:20 [facility] Medical History Cerebrovascular accident Chronic GERD Dementia Hyperlipidemia Hypertension Social History household members: children Smoking Status: Former smoker alcohol intake: current Assessment & Plan Assessment & Plan narrative: 1. Unstable discharge for debilitated elderly male with multiple medical comorbidities -Patient remains hospitalized pending appropriate placement.? Discharge planning continues to work with the state regarding long-term care and Medicaid eligibility. 2. History of stroke with left-sided weakness, POA and stable. -Monitor. 3. Coronary artery disease (PCI), POA and stable. ?? -Continue metoprolol. Monitor. 4. Hypertension, POA and stable. -Well controlled on metoprolol. 5. ?Depression, POA and stable. -Continue Zoloft. 6. Poor appetite, POA and stable. -had previously been on remeron and marinol -these were stopped due to report of patient lethargy 6. Hypothyroidism, POA and stable. -Last labs performed March 07 revealed a TSH 0.02 with a free T4 of 1.73.? Currently, TSH is up to 0.15 and free T4 is 1.49.? Although his free T4 is within normal range, he likely could tolerate it a little bit lower.? Given his persistent low TSH, trailling decrease in his levothyroxine to 125 mcg.??Recommend repeat TSH in 3-4 weeks (sometime during the of april if patient is still here). Time Spent With Patient Time with patient: less than 30 minutes Quality VTE Deep Vein Thrombosis/Pulmonary Embolism Present on Admission: No
--- NOTE | 2023-04-08 13:19 | CM.DPC ---
VAPO Hearing Per Erlinda with [employer] attorneys, pt's VAPO hearing scheduled for today [address] [facility]. SW testified in the hearing on behalf of [facility] and Declaration submitted to [facility]. Present was pt, son Wander, and this SW via Zoom and electron tube assembler Erlinda in person at the court house. [employer] ruled that the VAPO order would remain in place for one year and that Wander was to no longer have access to the joint checking account between himself and the pt and no longer manage his social security or finances and that Wander would need to present documentation of the use of pt's social security funds used during the time that the pt has been admitted to [facility] starting December 12, 2022 until current. [employer] ruled that mike Viramontes can still have access to the pt himself and can continue visiting and interacting with the patient. JEOVANY also spoke to [facility] Financial reviewer Deepika Grimes ([phone]) and assisted Deepika in getting access to the secured email sent to her over the weekend and again Thu04/06/23. Deepika was able to access the pt's signed Declaration and the copy of the VAPO and will review with her Baggageman as they will need to determine if pt's stated amount spent on his care that was given to his son is a reasonable amount by comparing to average cost of private in-home care and review his gifting amounts. Plan: SW to follow closely with [facility] Deepika to determine any barriers to Medicaid LTC approval and upcoming functional assessment with [facility] Tory Stack ([email or web address]) currently scheduled for 04/21/23 at 1100 in person. CHARITY Bradshaw
--- NOTE | 2023-04-08 13:36 | CM.DPC ---
DCP Continued: This SEWING MACHINE REPAIRER was asked by CHARITY Babb and CM Luncheonette Operator/RN Ashley to assist in the zoom court hearing process for patient and to act as tech support/informal liaison for current proceedings. SEWING MACHINE REPAIRER entered room and introduced self and role. Patient resting in bed. Patient agreeable to sit with this author during zoom court hearing. This SEWING MACHINE REPAIRER logged into the zoom meeting and explained the circumstances to patient. Patient become irritable throughout process as evidenced by occasionally scoffing, occasional swearing at this author, throwing his hands up, and asking this author to turn it off a few times. However, he appeared overall begrudgingly agreeable to listen in. Patient appeared to alternate between tuning in to the proceedings and watching TV. Towards the end of the hearing, patient requested to hold the IPad the zoom meeting was on. Patient requested to speak with son and SEWING MACHINE REPAIRER Esthre following the hearing. This SEWING MACHINE REPAIRER agreed to pass along the message to SEWING MACHINE REPAIRERJason Santana. See CHARITY Babb note for more in depth details regarding court proceeding for this patient. This SEWING MACHINE REPAIRER will continue to assist as able in d/c planning process. CHARITY Porter
[2023-04-08] MEDS: HYDROCODONE/ACET 10/325 TABLET 1 TAB PO ×2 (17:36→21:12)
[2023-04-08 20:00] VITALS: BP 143/63; PULSE 63; RESP 18; TEMP 36.8; O2SAT 96
[2023-04-08] MEDS: METOPROLOL IR 25 MG TABLET 12.5 MG PO (21:12)
[2023-04-08] MEDS: ZOLPIDEM 5 MG TABLET PO (21:12)
[2023-04-08] MEDS: SERTRALINE 50 MG TABLET 100 MG PO (21:12)
[2023-04-09] MEDS: HYDROCODONE/ACET 10/325 TABLET 1 TAB PO ×2 (04:14→20:41)
[2023-04-09] MEDS: LEVOTHYROXINE 125 MCG TABLET PO (06:58)
[2023-04-09 07:00] VITALS: BP 117/63; PULSE 55; RESP 18; TEMP 36.2; O2SAT 97
[2023-04-09] MEDS: GABAPENTIN 100 MG CAPSULE PO ×2 (08:54→20:42)
[2023-04-09] MEDS: METOPROLOL IR 25 MG TABLET 12.5 MG PO ×2 (08:54→20:42)
--- NOTE | 2023-04-09 14:11 | PC.NURSE ---
Pt declined to get Out of bed with today to go to visit therapy dogs.. Chaplain Meneses states he had been looking forward to it earlier in the week. Continuous monitoring. Offered support.
--- NOTE | 2023-04-09 18:08 | P.PN_ITS ---
Subjective Subjective Interval history: No complaints. Exam Vital Signs (past 8 hours): Oxygen Delivery Method Room Air Oxygen Flow Rate 0 Narrative Exam Narrative: NAD, normal speech and calm. Atraumatic head, EOMI. Neck supple and midline trachea. Lungs CTA, normal rate and effort. Heart RRR, without murmur, gallop, or rub. Abdomen Soft, NT, ND No leg edema. No skin rash. Objective Labs 03/07/23 09:20 03/07/23 09:20 [facility] Medical History Cerebrovascular accident Chronic GERD Dementia Hyperlipidemia Hypertension Social History household members: children Smoking Status: Former smoker alcohol intake: current Assessment & Plan Assessment & Plan narrative: 1. Unstable discharge for debilitated elderly male with multiple medical comorbidities -Patient remains hospitalized pending appropriate placement.? Discharge planning continues to work with the state regarding long-term care and Medicaid eligibility. 2. History of stroke with left-sided weakness, POA and stable. -Monitor. 3. Coronary artery disease (PCI), POA and stable. ?? -Continue metoprolol. Monitor. 4. Hypertension, POA and stable. -Well controlled on metoprolol. 5. ?Depression, POA and stable. -Continue Zoloft. 6. Poor appetite, POA and stable. -had previously been on remeron and marinol -these were stopped due to report of patient lethargy 6. Hypothyroidism, POA and stable. -Last labs performed March 07 revealed a TSH 0.02 with a free T4 of 1.73.? Currently, TSH is up to 0.15 and free T4 is 1.49.? Although his free T4 is within normal range, he likely could tolerate it a little bit lower.? Given his persistent low TSH, trailling decrease in his levothyroxine to 125 mcg.?? Recommend repeat TSH in 3-4 weeks (sometime during the of april if patient is still here). Time Spent With Patient Time with patient: less than 30 minutes Quality VTE Deep Vein Thrombosis/Pulmonary Embolism Present on Admission: No
[2023-04-09 19:00] VITALS: BP 119/76; PULSE 62; RESP 16; TEMP 36.6; O2SAT 98
[2023-04-09] MEDS: SERTRALINE 50 MG TABLET 100 MG PO (20:42)
[2023-04-09] MEDS: ZOLPIDEM 5 MG TABLET PO (20:42)
[2023-04-10] MEDS: ZOLPIDEM 5 MG TABLET PO ×2 (03:49→21:33)
[2023-04-10] MEDS: LEVOTHYROXINE 125 MCG TABLET PO (06:15)
[2023-04-10 10:00] VITALS: BP 127/66; PULSE 57; RESP 16; TEMP 36.6
[2023-04-10] MEDS: GABAPENTIN 100 MG CAPSULE PO ×2 (10:00→21:26)
[2023-04-10] MEDS: droNABinol 2.5 MG CAPSULE PO (10:00)
[2023-04-10 19:55] VITALS: BP 140/69; PULSE 58; RESP 16; TEMP 36.6; O2SAT 99
[2023-04-10] MEDS: METOPROLOL IR 25 MG TABLET 12.5 MG PO (21:26)
[2023-04-10] MEDS: SERTRALINE 50 MG TABLET 100 MG PO (21:26)
[2023-04-11] MEDS: LEVOTHYROXINE 125 MCG TABLET PO (05:12)
[2023-04-11 07:00] VITALS: BP 131/68; PULSE 54; RESP 17; TEMP 36.6; O2SAT 99
[2023-04-11] MEDS: METOPROLOL IR 25 MG TABLET 12.5 MG PO ×2 (09:32→20:28)
[2023-04-11] MEDS: GABAPENTIN 100 MG CAPSULE PO ×2 (09:33→20:28)
[2023-04-11] MEDS: droNABinol 2.5 MG CAPSULE PO (09:33)
[2023-04-11] MEDS: HYDROCODONE/ACET 10/325 TABLET 1 TAB PO ×2 (09:34→21:11)
--- NOTE | 2023-04-11 09:37 | PM.PN.1 ---
Subjective Subjective Interval history: No complaints. Exam Vital Signs (past 8 hours): - 04/11/23 07:00 Temperature 97.8 F Pulse Rate 54 L Respiratory Rate 17 Blood Pressure 131/68 Pulse Oximetry 99 Oxygen Flow Rate 0 Oxygen Delivery Method Room Air Oxygen Flow Rate 0 Narrative Exam Narrative: NAD, normal speech and calm. Atraumatic head, EOMI. Neck supple and midline trachea. Lungs CTA, normal rate and effort. Heart RRR, without murmur, gallop, or rub. Abdomen Soft, NT, ND No leg edema. No skin rash. Objective Labs 03/07/23 09:20 03/07/23 09:20 [facility] Medical History Cerebrovascular accident Chronic GERD Dementia Hyperlipidemia Hypertension Social History household members: children Smoking Status: Former smoker alcohol intake: current Assessment & Plan Assessment & Plan narrative: 1. Unstable discharge for debilitated elderly male with multiple medical comorbidities -Patient remains hospitalized pending appropriate placement.? Discharge planning continues to work with the state regarding long-term care and Medicaid eligibility. 2. History of stroke with left-sided weakness, POA and stable. -Monitor. 3. Coronary artery disease (PCI), POA and stable. ?? -Continue metoprolol. Monitor. 4. Hypertension, POA and stable. -Well controlled on metoprolol. 5. ?Depression, POA and stable. -Continue Zoloft. 6. Poor appetite, POA and stable. -had previously been on remeron and marinol -these were stopped due to report of patient lethargy 6. Hypothyroidism, POA and stable. -Last labs performed March 07 revealed a TSH 0.02 with a free T4 of 1.73.? Currently, TSH is up to 0.15 and free T4 is 1.49.? Although his free T4 is within normal range, he likely could tolerate it a little bit lower.? Given his persistent low TSH, trailling decrease in his levothyroxine to 125 mcg.??Recommend repeat TSH in 3-4 weeks (sometime during the week of april if patient is still here). Time Spent With Patient Time with patient: less than 30 minutes Quality VTE Deep Vein Thrombosis/Pulmonary Embolism Present on Admission: No
--- NOTE | 2023-04-11 18:42 | PC.NURSE ---
Day shift: Pt refused bathing today after multiple attempts from this RN and PCT. Refused breakfast, refused dinner. Pt declining oral care at this time after several attempts. Pt educated on importance of hygiene care. Care ongoing.
[2023-04-11] MEDS: SERTRALINE 50 MG TABLET 100 MG PO (20:28)
[2023-04-11] MEDS: ZOLPIDEM 5 MG TABLET PO (20:28)
[2023-04-11 20:29] VITALS: BP 116/57; PULSE 59; RESP 16; TEMP 36.6; O2SAT 97
[2023-04-11] MEDS: diazePAM 5 MG TABLET PO (22:49)
[2023-04-12] MEDS: LEVOTHYROXINE 125 MCG TABLET PO (06:33)
[2023-04-12 07:00] VITALS: BP 155/73; PULSE 59; RESP 17; TEMP 36.6; O2SAT 99
--- NOTE | 2023-04-12 08:08 | PM.PN.1 ---
Subjective Subjective Interval history: Patient having alot of LE itching on calves and shins. Asking for benadryl po and topical cream. Exam Vital Signs (past 8 hours): Oxygen Delivery Method Room Air Oxygen Flow Rate 0 Narrative Exam Narrative: NAD, normal speech and calm. Atraumatic head, EOMI. Neck supple and midline trachea. Lungs CTA, normal rate and effort. Heart RRR, without murmur, gallop, or rub. Abdomen Soft, NT, ND No leg edema. Bilateral light rash on shins with excoriations from itching. Objective Labs 03/07/23 09:20 03/07/23 09:20 [facility] Medical History Cerebrovascular accident Chronic GERD Dementia Hyperlipidemia Hypertension Social History household members: children Smoking Status: Former smoker alcohol intake: current Assessment & Plan Assessment & Plan narrative: 1. Unstable discharge for debilitated elderly male with multiple medical comorbidities -Patient remains hospitalized pending appropriate placement.? Discharge planning continues to work with the state regarding long-term care and Medicaid eligibility. 2. History of stroke with left-sided weakness, POA and stable. -Monitor. 3. Coronary artery disease (PCI), POA and stable. ?? -Continue metoprolol. Monitor. 4. Hypertension, POA and stable. -Well controlled on metoprolol. 5. ?Depression, POA and stable. -Continue Zoloft. 6. Poor appetite, POA and stable. -had previously been on remeron and marinol -now just on marinol due to remoron causing lethargy 6. Hypothyroidism, POA and stable. -Last labs performed March 07 revealed a TSH 0.02 with a free T4 of 1.73.? Currently, TSH is up to 0.15 and free T4 is 1.49.? Although his free T4 is within normal range, he likely could tolerate it a little bit lower.? Given his persistent low TSH, trailling decrease in his levothyroxine to 125 mcg.??Recommend repeat TSH in 3-4 weeks (sometime during the week of april if patient is still here). 7. LE rash with itching - unclear cause - benadryl po PRN and topical hydrocortisone to bilat shins/calves Time Spent With Patient Time with patient: less than 30 minutes Quality VTE Deep Vein Thrombosis/Pulmonary Embolism Present on Admission: No
[2023-04-12] MEDS: GABAPENTIN 100 MG CAPSULE PO ×2 (08:18→21:45)
[2023-04-12] MEDS: droNABinol 2.5 MG CAPSULE PO (08:18)
[2023-04-12] MEDS: METOPROLOL IR 25 MG TABLET 12.5 MG PO (08:18)
[2023-04-12] MEDS: HYDROCODONE/ACET 10/325 TABLET 1 TAB PO ×2 (08:19→21:54)
[2023-04-12] MEDS: HYDROCORTISONE 1% CREAM 28 GM 1 APPLIC TOP (21:45)
[2023-04-12] MEDS: SERTRALINE 50 MG TABLET 100 MG PO (21:45)
[2023-04-12 21:51] VITALS: BP 112/50; PULSE 57; RESP 16; O2SAT 100
[2023-04-12] MEDS: ZOLPIDEM 5 MG TABLET PO (21:54)
[2023-04-13] MEDS: LEVOTHYROXINE 125 MCG TABLET PO (06:42)
[2023-04-13 08:00] VITALS: BP 111/49; PULSE 62; RESP 16; TEMP 36.2; O2SAT 98
[2023-04-13] MEDS: GABAPENTIN 100 MG CAPSULE PO ×2 (09:27→20:21)
[2023-04-13] MEDS: droNABinol 2.5 MG CAPSULE PO (09:27)
[2023-04-13] MEDS: HYDROCODONE/ACET 10/325 TABLET 1 TAB PO ×2 (09:27→20:21)
[2023-04-13] MEDS: METOPROLOL IR 25 MG TABLET 12.5 MG PO (09:27)
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
--- NOTE | 2023-04-13 17:27 | P.PN_ITS ---
Subjective Subjective Interval history: No complaints Exam Vital Signs (past 8 hours): Oxygen Delivery Method Room Air Oxygen Flow Rate 0 Narrative Exam Narrative: NAD, normal speech and calm. Objective Labs 03/07/23 09:20 03/07/23 09:20 [facility] Medical History Cerebrovascular accident Chronic GERD Dementia Hyperlipidemia Hypertension Social History household members: children Smoking Status: Former smoker alcohol intake: current Assessment & Plan Assessment & Plan narrative: 1. Unstable discharge for debilitated elderly male with multiple medical comorbidities -Patient remains hospitalized pending appropriate placement.? Discharge planning continues to work with the state regarding long-term care and Medicaid eligibility. 2. History of stroke with left-sided weakness, POA and stable. -Monitor. 3. Coronary artery disease (PCI), POA and stable. ?? -Continue metoprolol. Monitor. 4. Hypertension, POA and stable. -Well controlled on metoprolol. 5. ?Depression, POA and stable. -Continue Zoloft. 6. Poor appetite, POA and stable. -had previously been on remeron and marinol -now just on marinol due to remoron causing lethargy 6. Hypothyroidism, POA and stable. -Last labs performed March 07 revealed a TSH 0.02 with a free T4 of 1.73 .? Currently, TSH is up to 0.15 and free T4 is 1.49.? Although his free T4 is within normal range, he likely could tolerate it a little bit lower.? Given his persistent low TSH, trailling decrease in his levothyroxine to 125 mcg.?? Recommend repeat TSH in 3-4 weeks (sometime during the of april if patient is still here). 7. LE rash with itching - unclear cause - benadryl po PRN and topical hydrocortisone to bilat shins/calves Time Spent With Patient Time with patient: less than 30 minutes Quality VTE Deep Vein Thrombosis/Pulmonary Embolism Present on Admission: No
[2023-04-13] MEDS: SERTRALINE 50 MG TABLET 100 MG PO (20:21)
[2023-04-13] MEDS: ZOLPIDEM 5 MG TABLET PO (20:30)
[2023-04-14] MEDS: LEVOTHYROXINE 125 MCG TABLET PO (05:10)
--- NOTE | 2023-04-14 07:05 | PC.NURSE ---
maintenance supervisor 2nd shift: Patient was tearful yesterday evening, emotional support provided. Patient is incontinent of stool and spilled urine on himself, requiring a full linen change. Vocalized anger and started cussing when changing bed linens/brief, and insistent on things being done immediately. Patient not motivated to clean self. Reminded patient that we are here to help him, assisted with hygiene and repositioning. Had complaints of legs being itchy, cream applied.
[2023-04-14] MEDS: HYDROCORTISONE 1% CREAM 28 GM 1 APPLIC TOP (07:24)
[2023-04-14 08:00] VITALS: BP 126/60; PULSE 60; RESP 14; TEMP 36.7; O2SAT 99
[2023-04-14] MEDS: METOPROLOL IR 25 MG TABLET 12.5 MG PO ×2 (08:20→20:32)
[2023-04-14] MEDS: GABAPENTIN 100 MG CAPSULE PO ×2 (08:20→20:31)
[2023-04-14] MEDS: HYDROCODONE/ACET 10/325 TABLET 1 TAB PO ×3 (08:20→20:27)
[2023-04-14] MEDS: diphenhydrAMINE 25 MG TABLET PO ×2 (08:20→15:46)
[2023-04-14] MEDS: droNABinol 2.5 MG CAPSULE PO (08:20)
--- NOTE | 2023-04-14 11:01 | PT-IP ANOTE ---
Pt presents supine in bed. After PT introduction, the pt is reluctant to participate but is agreeable on transferring to chair after education regarding benefits of skilled PT. PT set up chair, bed and equipment for transfer, the pt stated he this is not a good time to go to the chair. PT again attempted to educate the pt and provided option for bed level exercises, however pt refused and asked to be seen later today. PT will reattempt this afternoon.
--- NOTE | 2023-04-14 14:01 | CM.DPC ---
DCP Continued: Per request from Erlinda at [facility] and CM Fabric Coating Supervisor CHARITY Ramirez gave patient protection order paperwork. Patient held paperwork and flipped through and appeared to skim and flip through the pages of the document. [employer] answered patient's questions to best of ability. Patient handed protection order paperwork back to this [employer] and requested [employer] Esther explain the documentation to him. [employer] completed Return of Service paperwork and emailed copy back to Erlinda at [facility]. CM team will continue to follow closely. CHARITY Porter
--- NOTE | 2023-04-14 14:14 | P.PN_ITS ---
Subjective Subjective Interval history: No complaints Exam Vital Signs (past 8 hours): - 04/14/23 08:00 04/14/23 08:00 Temperature 98.1 F Pulse Rate 60 Respiratory Rate 14 Blood Pressure 126/60 Pulse Oximetry 99 Oxygen Delivery Method Room Air Oxygen Delivery Method Room Air Oxygen Flow Rate 0 Narrative Exam Narrative: NAD, normal speech and calm. Objective Labs 03/07/23 09:20 03/07/23 09:20 [facility] Medical History Cerebrovascular accident Chronic GERD Dementia Hyperlipidemia Hypertension Social History household members: children Smoking Status: Former smoker alcohol intake: current Assessment & Plan Assessment & Plan narrative: 1. Unstable discharge for debilitated elderly male with multiple medical comorbidities -Patient remains hospitalized pending appropriate placement.? Discharge planning continues to work with the state regarding long-term care and Medicaid eligibility. 2. History of stroke with left-sided weakness, POA and stable. -Monitor. 3. Coronary artery disease (PCI), POA and stable. ?? -Continue metoprolol. Monitor. 4. Hypertension, POA and stable. -Well controlled on metoprolol. 5. ?Depression, POA and stable. -Continue Zoloft. 6. Poor appetite, POA and stable. -had previously been on remeron and marinol -now just on marinol due to remoron causing lethargy 6. Hypothyroidism, POA and stable. -Last labs performed March 07 revealed a TSH 0.02 with a free T4 of 1.73.? Currently, TSH is up to 0.15 and free T4 is 1.49.? Although his free T4 is within normal range, he likely could tolerate it a little bit lower.? Given his persistent low TSH, trailling decrease in his levothyroxine to 125 mcg.?? Recommend repeat TSH in 3-4 weeks (sometime during the of april if patient is still here). 7. LE rash with itching - unclear cause - benadryl po PRN and topical hydrocortisone to bilat shins/calves Time Spent With Patient Time with patient: less than 30 minutes Quality VTE Deep Vein Thrombosis/Pulmonary Embolism Present on Admission: No
--- NOTE | 2023-04-14 15:44 | PT.IPRE ---
Current Diagnoses Weakness (12/14/22) Medical History (Last Reviewed 12/13/22 @ 07:19 by Abdon Conroy DO) Cerebrovascular accident Chronic GERD Dementia Hyperlipidemia Hypertension Physical Therapy Inpatient Evaluation/Re-Eval M2 PT-IP Current Condition Start: 12/15/22 09:27 Freq: NEEDED Status: Active Protocol: Document 04/14/23 15:54 AB (Rec: 04/14/23 16:12 AB [id number]) Physical Therapy Current Condition Current Condition Evaluation Date 03/11/23 Treatment Diagnosis Weakness, impaired gait Onset Date 12/14/22 M3 PT-IP Subjective Start: 12/15/22 09:27 Freq: NEEDED Status: Active Protocol: Document 04/14/23 15:54 AB (Rec: 04/14/23 16:12 AB [id number]) Subjective Physical Therapy Visit Type Type Re-Evaluation Visit Start Time 15:26 Visit Stop Time 15:44 Total Visit Minutes 18 Physical Therapy Visit Comments Patient Comments Pt presents supine in bed and is agreeable to attempting mobility for PT session this PM. Therapy Pain Assessment Pain When Pain Assessed During Mobility Pain Present Pain Present Pain Reported Location back Scale Used unable to rate Pain Behaviors Facial Grimacing M4 PT-IP Mobility and Gait Start: 12/15/22 09:27 Freq: NEEDED Status: Active Protocol: Document 04/14/23 15:54 AB (Rec: 04/14/23 16:12 AB [id number]) PT-Bed Mobility Assessment Rolling Type of Rolling Bilateral Level of Assist Standby Assistance Supine to Sit Supine to Sit Moderate Assistance,Head of Bed Elevated,Bedrails Sit to Supine Sit to Supine Minimal Assistance,Head of Bed Elevated Scooting Scooting to Edge of Bed Minimal Assistance Scooting Up and Down in Bed Standby Assistance PT-Transfer Assessment Comments Mobility Comments Pt is able to perform supine<> sit with min-modA with HOB elevated and use of bed rails. Upon sitting at EOB, the pt reports increased dizziness and that the room is spinning, however no nystagmus is observed. The pt was allowed to rest for a few minutes and shows fair sitting balance. Symptoms did not improve and the pt requested to return to supine. Pt is able to perform sit<>supine with Drew. Once back in bed, the pt is able to roll and scoot up in bed with SBA. At end of session, pt is in bed with all needs met and call light within reach. Gait Assessment Comments Gait Comments NT d/t symptoms Stair Climbing Assessment Comments Stair Climbing Comments NT d/t symptoms PT-Balance Assessment Sitting Balance and Reactions Static Sitting Balance Ability Fair M5 PT-IP Objective Assessments Start: 12/15/22 09:27 Freq: NEEDED Status: Active Protocol: Document 04/14/23 15:54 AB (Rec: 04/14/23 16:12 AB [id number]) Gross Range of Motion Upper Extremity ROM Assessment Within Functional Limits Lower Extremity ROM Assessment Bilaterally Impaired Strength Upper Extremity Strength Assessment Within Functional Limits Lower Extremity Strength Assessment Bilaterally Impaired M6 PT-IP Treatment Start: 12/15/22 09:27 Freq: NEEDED Status: Active Protocol: Document 04/14/23 15:54 AB (Rec: 04/14/23 16:12 AB [id number]) Physical Therapy Treatment Education Education Provided Safety Brace Education Patient M7 PT-IP Assessment and Plan Start: 12/15/22 09:27 Freq: NEEDED Status: Active Protocol: Document 04/14/23 15:54 AB (Rec: 04/14/23 16:12 AB [id number]) PT Summary Assessment and Plan Potential Rehabilitation Potential Fair Summary Impairments ROM,Strength,Balance,Gait Progress Towards Goals Slow Progress due to Pain,Slow Progress due to Medical Issues,Slow Progress due to Activity Tolerance Assessment Summary Gareth demonstrates continued impairments which are limiting his ability to perform functional mobility with independence. He currently requires SBA to modA along with ideal positioning of bed for bed mobility due to weakness and fatigue. Upon sitting at EOB, the pt complains of dizziness, therefore no further mobility was performed today. The pt would benefit from continued skilled PT intervention to improve his deficits. However, the pt has a history of lack of participation in therapy, therefore has a guarded prognosis. Based on his current level of function, PT continues to recommend discharge to SNF to improve to his highest level of function . Goals Bed Mobility Goal Independent Transfer Goal Contact Guard Assistance Gait Goal Contact Guard Assistance Gait Distance 20 Days to Meet Goals 10 Frequency of Treatment Frequency Of Treatment Once a Day Treatment Plan Physical Therapy Treatment Plan Bed Mobility Training,Transfer Training,Gait Training, Therapeutic Exercise,Balance Retraining,Discharge Planning Other Recommendations and Next Treatment Perform therapeutic activities Focus or therapeutic exercises as able. Weight Bearing Status Weight Bearing Status Full Weight Bearing Recommendations To Nursing Amount of Assist Needed 1 Person Assist Discharge Recommendations PT Discharge Recommendations SNF Rehab Transportation Needs at Discharge Private Vehicle,Wheelchair/ Cabulance
[2023-04-14 20:14] VITALS: BP 116/57; PULSE 59; RESP 16; TEMP 36.3; O2SAT 97
[2023-04-14] MEDS: SERTRALINE 50 MG TABLET 100 MG PO (20:31)
[2023-04-14] MEDS: ZOLPIDEM 5 MG TABLET PO (20:31)
[2023-04-15] MEDS: diphenhydrAMINE 25 MG TABLET PO ×2 (06:53→21:06)
[2023-04-15] MEDS: HYDROCODONE/ACET 10/325 TABLET 1 TAB PO ×3 (06:53→21:04)
[2023-04-15] MEDS: LEVOTHYROXINE 125 MCG TABLET PO (06:53)
[2023-04-15 07:58] VITALS: BP 118/58; PULSE 53; RESP 16; TEMP 36.6; O2SAT 96
[2023-04-15] MEDS: GABAPENTIN 100 MG CAPSULE PO ×2 (09:25→21:06)
[2023-04-15] MEDS: METOPROLOL IR 25 MG TABLET 12.5 MG PO ×2 (09:25→21:04)
[2023-04-15] MEDS: droNABinol 2.5 MG CAPSULE PO (09:48)
--- NOTE | 2023-04-15 13:40 | PT-IP ANOTE ---
Pt presents seated in w/c having just finished a shower with CONTROL ROOM HELPER. PT helped pt perform STS with FWW and mod-maxA x2 to dry off, and provided verbal cues for proper hand placement, though pt has poor follow through. The pt then performed stand pivot transfer to bed using FWW and modA x2 to help maintain balance due to BLE weakness. Pt performed sit<>supine with Drew from CONTROL ROOM HELPER, and states he does not want to participate in further mobility with PT at this time and requested PT return later today. PT will attempt again later this afternoon.
--- NOTE | 2023-04-15 14:04 | P.PN_ITS ---
Subjective Subjective Interval history: No complaints Exam Vital Signs (past 8 hours): - 04/15/23 07:58 Temperature 97.8 F Pulse Rate 53 L Respiratory Rate 16 Blood Pressure 118/58 L Pulse Oximetry 96 Oxygen Flow Rate 0 Oxygen Delivery Method Room Air Oxygen Flow Rate 0 Narrative Exam Narrative: NAD, normal speech and calm. Objective Labs 03/07/23 09:20 03/07/23 09:20 [facility] Medical History Cerebrovascular accident Chronic GERD Dementia Hyperlipidemia Hypertension Social History household members: children Smoking Status: Former smoker alcohol intake: current Assessment & Plan Assessment & Plan narrative: 1. Unstable discharge for debilitated elderly male with multiple medical comorbidities -Patient remains hospitalized pending appropriate placement.? Discharge planning continues to work with the state regarding long-term care and Medicaid eligibility. 2. History of stroke with left-sided weakness, POA and stable. -Monitor. 3. Coronary artery disease (PCI), POA and stable. ?? -Continue metoprolol. Monitor. 4. Hypertension, POA and stable. -Well controlled on metoprolol. 5. ?Depression, POA and stable. -Continue Zoloft. 6. Poor appetite, POA and stable. -had previously been on remeron and marinol -now just on marinol due to remoron causing lethargy 6. Hypothyroidism, POA and stable. -Last labs performed March 07 revealed a TSH 0.02 with a free T4 of 1.73.? Currently, TSH is up to 0.15 and free T4 is 1.49.? Although his free T4 is within normal range, he likely could tolerate it a little bit lower.? Given his persistent low TSH, trailling decrease in his levothyroxine to 125 mcg.??R ecommend repeat TSH in 3-4 weeks (sometime during the week of april if patient is still here). 7. LE rash with itching - unclear cause - benadryl po PRN and topical hydrocortisone to bilat shins/calves Time Spent With Patient Time with patient: less than 30 minutes Quality VTE Deep Vein Thrombosis/Pulmonary Embolism Present on Admission: No
[2023-04-15] MEDS: diazePAM 5 MG TABLET PO (15:11)
--- NOTE | 2023-04-15 17:17 | PT-IP ANOTE ---
PT attempted to see pt this PM, however pt reports he just found out about the passing of his son and does not want to participate in PT. PT will assess pt's disposition tomorrow.
[2023-04-15] MEDS: SERTRALINE 50 MG TABLET 100 MG PO (21:06)
[2023-04-15] MEDS: ZOLPIDEM 5 MG TABLET PO (21:06)
[2023-04-16] MEDS: LEVOTHYROXINE 125 MCG TABLET PO (06:14)
[2023-04-16] MEDS: diphenhydrAMINE 25 MG TABLET PO (06:14)
[2023-04-16] MEDS: HYDROCODONE/ACET 10/325 TABLET 1 TAB PO ×2 (06:15→20:46)
[2023-04-16] MEDS: GABAPENTIN 100 MG CAPSULE PO ×2 (09:53→20:46)
[2023-04-16] MEDS: METOPROLOL IR 25 MG TABLET 12.5 MG PO ×2 (09:53→20:44)
[2023-04-16] MEDS: droNABinol 2.5 MG CAPSULE PO (09:53)
[2023-04-16] MEDS: CLOPIDOGREL 75 MG TABLET PO (11:46)
[2023-04-16 12:00] VITALS: BP 113/61; PULSE 61; RESP 15; TEMP 36.6; O2SAT 94
--- NOTE | 2023-04-16 12:37 | PM.PN.1 ---
Subjective Subjective Interval history: No complaints but he is feeling very sad after finding out that his son has . Exam Vital Signs (past 8 hours): Oxygen Delivery Method Room Air Oxygen Flow Rate 0 Narrative Exam Narrative: NAD, normal speech and calm. Objective Labs 03/07/23 09:20 03/07/23 09:20 [facility] Medical History Cerebrovascular accident Chronic GERD Dementia Hyperlipidemia Hypertension Social History household members: children Smoking Status: Former smoker alcohol intake: current Assessment & Plan Assessment & Plan narrative: 1. Unstable discharge for debilitated elderly male with multiple medical comorbidities -Patient remains hospitalized pending appropriate placement.? Discharge planning continues to work with the state regarding long-term care and Medicaid eligibility. 2. History of stroke with left-sided weakness, POA and stable. -Monitor. 3. Coronary artery disease (PCI), POA and stable. ?? -Continue metoprolol. Monitor. 4. Hypertension, POA and stable. -Well controlled on metoprolol. 5. ?Depression, POA and stable. -Continue Zoloft. 6. Poor appetite, POA and stable. -had previously been on remeron and marinol -now just on marinol due to remoron causing lethargy 6. Hypothyroidism, POA and stable. -Last labs performed March 07 revealed a TSH 0.02 with a free T4 of 1.73.? Currently, TSH is up to 0.15 and free T4 is 1.49.? Although his free T4 is within normal range, he likely could tolerate it a little bit lower.? Given his persistent low TSH, trailling decrease in his levothyroxine to 125 mcg.??Recommend repeat TSH in 3-4 weeks (sometime during the week of april if patient is still here). 7. LE rash with itching - unclear cause - benadryl po PRN and topical hydrocortisone to bilat shins/calves Time Spent With Patient Time with patient: less than 30 minutes Quality VTE Deep Vein Thrombosis/Pulmonary Embolism Present on Admission: No
--- NOTE | 2023-04-16 13:40 | PT-IP ANOTE ---
Addendum entered and electronically signed by Juvencio Clayton PT 04/16/23 16:54: Of note, pt also has extensive history of poor participation. The pt has not been participating in therapy to make significant and functional improvements towards improving his level of function. Original Note: Pt presents sleeping in chair and reports not feeling up for participating with PT at this moment. All needs met and call light is within reach. Pt will be discharged from PT due to poor participation with therapy.
--- NOTE | 2023-04-16 15:55 | CM.DPNOTE ---
[facility] Placed call to Deepika Grimes, financial worker through [facility], had to LM requesting CB to discuss her processing patient's financial assessment (?) Voicemail back from Deepika says she has not made any progress r/t her caseload demands. May need to be escalated to supervision if still no progress this week or next. Functional assessment still scheduled for 04.21.23. Meanwhile, Deborah has completed the application/form titled Referral to [facility] Division for Identification of Certified Professional Guardian/Conservator which this DRIVER ENGINEER reviewed, signed and sent back to kanwal Larson at [facility]. Jose submitted this to [facility] today. Patient told this week of his son iSmone's . Testing Coordinatorpaulette Meneses has made himself available for supportive care. ERIC
[2023-04-16] MEDS: SERTRALINE 50 MG TABLET 100 MG PO (20:46)
[2023-04-16] MEDS: ZOLPIDEM 5 MG TABLET PO (20:52)
[2023-04-17] MEDS: LEVOTHYROXINE 125 MCG TABLET PO (06:05)
[2023-04-17] MEDS: METOPROLOL IR 25 MG TABLET 12.5 MG PO ×2 (08:13→20:37)
[2023-04-17] MEDS: droNABinol 2.5 MG CAPSULE PO (08:13)
[2023-04-17] MEDS: GABAPENTIN 100 MG CAPSULE PO ×2 (08:13→20:37)
[2023-04-17] MEDS: CLOPIDOGREL 75 MG TABLET PO (08:13)
--- NOTE | 2023-04-17 08:26 | PC.NURSE ---
Patient is awake and eating his breakfast. He denies pain or discomfort. He has not mentioned anything about his sons . Watching television at this time.
--- NOTE | 2023-04-17 15:03 | P.PN_ITS ---
Subjective Subjective Interval history: No complaints but he is feeling very sad after finding out that his son has . Exam Vital Signs (past 8 hours): Oxygen Delivery Method Room Air Oxygen Flow Rate 0 Narrative Exam Narrative: NAD, normal speech and calm. Objective Labs 03/07/23 09:20 03/07/23 09:20 [facility] Medical History Cerebrovascular accident Chronic GERD Dementia Hyperlipidemia Hypertension Social History household members: children Smoking Status: Former smoker alcohol intake: current Assessment & Plan Assessment & Plan narrative: 1. Unstable discharge for debilitated elderly male with multiple medical comorbidities -Patient remains hospitalized pending appropriate placement.? Discharge planning continues to work with the state regarding long-term care and Medicaid eligibility. 2. History of stroke with left-sided weakness, POA and stable. -Monitor. 3. Coronary artery disease (PCI), POA and stable. ?? -Continue metoprolol. Monitor. 4. Hypertension, POA and stable. -Well controlled on metoprolol. 5. ?Depression, POA and stable. -Continue Zoloft. 6. Poor appetite, POA and stable. -had previously been on remeron and marinol -now just on marinol due to remoron causing lethargy 6. Hypothyroidism, POA and stable. -Last labs performed March 07 revealed a TSH 0.02 with a free T4 of 1.73.? Currently, TSH is up to 0.15 and free T4 is 1.49.? Although his free T4 is within normal range, he likely could tolerate it a little bit lower.? Given his persistent low TSH, trailling decrease in his levothyroxine to 125 mcg.??R ecommend repeat TSH in 3-4 weeks (sometime during the week of april if patient is still here). 7. LE rash with itching - unclear cause - benadryl po PRN and topical hydrocortisone to bilat shins/calves Time Spent With Patient Time with patient: less than 30 minutes Quality VTE Deep Vein Thrombosis/Pulmonary Embolism Present on Admission: No
[2023-04-17 18:26] VITALS: BP 116/57; PULSE 61; RESP 16; TEMP 36.1; O2SAT 98
[2023-04-17] MEDS: SERTRALINE 50 MG TABLET 100 MG PO (20:37)
[2023-04-17] MEDS: HYDROCODONE/ACET 10/325 TABLET 1 TAB PO (22:26)
[2023-04-17] MEDS: diphenhydrAMINE 25 MG TABLET PO (22:26)
[2023-04-17] MEDS: diazePAM 5 MG TABLET PO (22:26)
[2023-04-17] MEDS: ZOLPIDEM 5 MG TABLET PO (23:41)
[2023-04-18] MEDS: LEVOTHYROXINE 125 MCG TABLET PO (06:34)
--- NOTE | 2023-04-18 08:52 | P.PN_ITS ---
Subjective Subjective Interval history: No updates. Exam Vital Signs (past 8 hours): Oxygen Delivery Method Room Air Oxygen Flow Rate 0 Narrative Exam Narrative: NAD, normal speech and calm. Objective Labs 03/07/23 09:20 03/07/23 09:20 [facility] Medical History Cerebrovascular accident Chronic GERD Dementia Hyperlipidemia Hypertension Social History household members: children Smoking Status: Former smoker alcohol intake: current Assessment & Plan Assessment & Plan narrative: 1. Unstable discharge for debilitated elderly male with multiple medical comorbidities -Patient remains hospitalized pending appropriate placement.? Discharge planning continues to work with the state regarding long-term care and Medicaid eligibility. 2. History of stroke with left-sided weakness, POA and stable. -Monitor. 3. Coronary artery disease (PCI), POA and stable. ?? -Continue metoprolol. Monitor. 4. Hypertension, POA and stable. -Well controlled on metoprolol. 5. ?Depression, POA and stable. -Continue Zoloft. 6. Poor appetite, POA and stable. -had previously been on remeron and marinol -now just on marinol due to remoron causing lethargy 6. Hypothyroidism, POA and stable. -Last labs performed March 07 revealed a TSH 0.02 with a free T4 of 1.73.? Currently, TSH is up to 0.15 and free T4 is 1.49.? Although his free T4 is within normal range, he likely could tolerate it a little bit lower.? Given his persistent low TSH, trailling decrease in his levothyroxine to 125 mcg.??R ecommend repeat TSH in 3-4 weeks (sometime during the week of april if patient is still here). 7. LE rash with itching - unclear cause - benadryl po PRN and topical hydrocortisone to bilat shins/calves Time Spent With Patient Time with patient: less than 30 minutes Quality VTE Deep Vein Thrombosis/Pulmonary Embolism Present on Admission: No
[2023-04-18 09:00] VITALS: BP 128/61; PULSE 66; RESP 16; TEMP 36.7; O2SAT 97
[2023-04-18] MEDS: METOPROLOL IR 25 MG TABLET 12.5 MG PO ×2 (09:01→20:54)
[2023-04-18] MEDS: GABAPENTIN 100 MG CAPSULE PO ×2 (09:02→20:53)
[2023-04-18] MEDS: droNABinol 2.5 MG CAPSULE PO (09:02)
[2023-04-18] MEDS: CLOPIDOGREL 75 MG TABLET PO (09:02)
--- NOTE | 2023-04-18 19:28 | PC.NURSE ---
0900: patient is a/o, voices needs. 1-2pa adls and mobility. needs encouragement to increase mobility, stamina, get OOB. tearful today, as he is grieving the loss of one of his sons. provided 1:1 listening support. 1600: agreeable to get into shower, was able to walk in w/ 1-2pa FWW and gait belt. 1800: resting now in bed. its his birthday tonight/tomorrow. smiling and conversing w/ staff members this evening. call light w/in reach. bed alarm is on.
[2023-04-18] MEDS: HYDROCODONE/ACET 10/325 TABLET 1 TAB PO (20:53)
[2023-04-18] MEDS: SERTRALINE 50 MG TABLET 100 MG PO (20:53)
[2023-04-19] MEDS: HYDROCODONE/ACET 10/325 TABLET 1 TAB PO ×2 (00:41→22:05)
[2023-04-19] MEDS: ZOLPIDEM 5 MG TABLET PO (00:42)
[2023-04-19] MEDS: LEVOTHYROXINE 125 MCG TABLET PO (06:34)
[2023-04-19] MEDS: GABAPENTIN 100 MG CAPSULE PO ×2 (07:57→22:06)
[2023-04-19] MEDS: droNABinol 2.5 MG CAPSULE PO (07:58)
[2023-04-19] MEDS: METOPROLOL IR 25 MG TABLET 12.5 MG PO (07:58)
[2023-04-19] MEDS: CLOPIDOGREL 75 MG TABLET PO (07:58)
[2023-04-19 08:00] VITALS: BP 140/58; PULSE 53; RESP 17; TEMP 36.2; O2SAT 99
--- NOTE | 2023-04-19 08:18 | P.PN_ITS ---
Subjective Subjective Interval history: Patient very sad since his son recently unexpectedly. He is having trouble sleeping and would like his ambien dose raised. Exam Vital Signs (past 8 hours): - 04/19/23 08:00 Temperature 97.1 F L Pulse Rate 53 L Respiratory Rate 17 Blood Pressure 140/58 L Pulse Oximetry 99 Oxygen Flow Rate 0 Oxygen Delivery Method Room Air Oxygen Flow Rate 0 Narrative Exam Narrative: NAD, normal speech and calm. Objective Labs 03/07/23 09:20 03/07/23 09:20 [facility] Medical History Cerebrovascular accident Chronic GERD Dementia Hyperlipidemia Hypertension Social History household members: children Smoking Status: Former smoker alcohol intake: current Assessment & Plan Assessment & Plan narrative: 1. Unstable discharge for debilitated elderly male with multiple medical comorbidities -Patient remains hospitalized pending appropriate placement.? Discharge planning continues to work with the state regarding long-term care and Medicaid eligibility. 2. History of stroke with left-sided weakness, POA and stable. -Monitor. 3. Coronary artery disease (PCI), POA and stable. ?? -Continue metoprolol. Monitor. 4. Hypertension, POA and stable. -Well controlled on metoprolol. 5. ?Depression and insomnia, POA and stable. -Continue Zoloft and ambien PRN 6. Poor appetite, POA and stable. -had previously been on remeron and marinol -now just on marinol due to remoron causing lethargy 6. Hypothyroidism, POA and stable. -Last labs performed March 07 revealed a TSH 0.02 with a free T4 of 1.73.? Currently, TSH is up to 0.15 and free T4 is 1.49.? Although his free T4 is within normal range, he likely could tolerate it a little bit lower.? Given his persistent low TSH, trailling decrease in his levothyroxine to 125 mcg.??R ecommend repeat TSH in 3-4 weeks (sometime during the week of april if patient is still here). 7. LE rash with itching - unclear cause - benadryl po PRN and topical hydrocortisone to bilat shins/calves Time Spent With Patient Time with patient: less than 30 minutes Quality VTE Deep Vein Thrombosis/Pulmonary Embolism Present on Admission: No
[2023-04-19 21:29] VITALS: BP 111/45; PULSE 63
[2023-04-19] MEDS: ZOLPIDEM 5 MG TABLET 10 MG PO (22:06)
[2023-04-19] MEDS: SERTRALINE 50 MG TABLET 100 MG PO (22:07)
--- NOTE | 2023-04-19 22:54 | PC.NURSE ---
Pt's birthday was tonight and was tearful and crying at times. Patient family came in to see him. Pt was more cooperative with care tonrd and assisted staff in pulling himself in bed. Tonrd we held is metoprolol due to his b/p 111/47 with a map 47. Pt heart rate has been low 60's and as low as 53.
[2023-04-20] MEDS: HYDROCORTISONE 1% CREAM 28 GM 1 APPLIC TOP (00:33)
[2023-04-20] MEDS: diphenhydrAMINE 25 MG TABLET PO (00:33)
--- NOTE | 2023-04-20 11:45 | CM.DPNOTE ---
Medicaid Application/ Placement Efforts This REUSE TECHNICIAN attempted contact with financial worker Deepika Grimes again this morning, had to LM. Placed call to Dianne Galarza, [facility] Social and Health [employer] [facility], P [phone], [email or web address] who shared Manager Sustainability info: Darren Trejo# [phone] email: [email or web address] Dianne recommended escalating this up to LICO Mayer, so placed call to Darren and left a message. Dianne at [facility] suggested calling her again if no response from Deepika or Darren over the next 24hrs so that she can escalate to her supervisor labor gang. Waiting now on the financial portion of the application to be processed and completed by LICO Guerra. We have been told that once the functional assessment is completed (scheduled tomorrow 04.21.23) and the financial portion is completed, we will know if patient has been approved for Medicaid or if he has a penalty period related to the stinson he gifted his family over the last 5 years. ERIC
[2023-04-20] MEDS: LEVOTHYROXINE 125 MCG TABLET PO (13:38)
[2023-04-20] MEDS: GABAPENTIN 100 MG CAPSULE PO ×2 (13:40→20:40)
[2023-04-20] MEDS: droNABinol 2.5 MG CAPSULE PO (13:40)
[2023-04-20] MEDS: METOPROLOL IR 25 MG TABLET 12.5 MG PO ×2 (13:41→20:40)
[2023-04-20] MEDS: CLOPIDOGREL 75 MG TABLET PO (13:41)
--- NOTE | 2023-04-20 17:19 | PM.PN.1 ---
Subjective Subjective Interval history: No updates. Exam Vital Signs (past 8 hours): Oxygen Delivery Method Room Air Oxygen Flow Rate 0 Narrative Exam Narrative: NAD, normal speech and calm. Objective Labs 03/07/23 09:20 03/07/23 09:20 [facility] Medical History Cerebrovascular accident Chronic GERD Dementia Hyperlipidemia Hypertension Social History household members: children Smoking Status: Former smoker alcohol intake: current Assessment & Plan Assessment & Plan narrative: 1. Unstable discharge for debilitated elderly male with multiple medical comorbidities -Patient remains hospitalized pending appropriate placement.? Discharge planning continues to work with the state regarding long-term care and Medicaid eligibility. 2. History of stroke with left-sided weakness, POA and stable. -Monitor. 3. Coronary artery disease (PCI), POA and stable. ?? -Continue metoprolol. Monitor. 4. Hypertension, POA and stable. -Well controlled on metoprolol. 5. ?Depression and insomnia, POA and stable. -Continue Zoloft and ambien PRN 6. Poor appetite, POA and stable. -had previously been on remeron and marinol -now just on marinol due to remoron causing lethargy 6. Hypothyroidism, POA and stable. -Last labs performed March 07 revealed a TSH 0.02 with a free T4 of 1.73.? Currently, TSH is up to 0.15 and free T4 is 1.49.? Although his free T4 is within normal range, he likely could tolerate it a little bit lower.? Given his persistent low TSH, trailling decrease in his levothyroxine to 125 mcg.??Recommend repeat TSH in 3-4 weeks (sometime during the week of april if patient is still here). 7. LE rash with itching - unclear cause - benadryl po PRN and topical hydrocortisone to bilat shins/calves Time Spent With Patient Time with patient: less than 30 minutes Quality VTE Deep Vein Thrombosis/Pulmonary Embolism Present on Admission: No
[2023-04-20] MEDS: SERTRALINE 50 MG TABLET 100 MG PO (20:40)
[2023-04-20] MEDS: ZOLPIDEM 5 MG TABLET 10 MG PO (20:40)
[2023-04-20] MEDS: HYDROCODONE/ACET 10/325 TABLET 1 TAB PO (20:48)
[2023-04-20 21:00] VITALS: BP 120/62; PULSE 58; RESP 16; TEMP 36.9; O2SAT 97
--- NOTE | 2023-04-21 00:26 | PC.NURSE ---
Gareth is alert and oriented except to day of week. Breath sounds diminished at bases but CTA with RA sat of 97%. HRR. Denied nausea. BT present and abdomen is soft. Has been incontinent of both B&B but often using urinal at bedside; denied dysuria. Is able to turn himself in bed but often lying on back. Has been d'cd from PT due to poor participation but is up in room with walker and 1 assist. Received vicodin and ambien at bedtime but is still unable to sleep; states he has too many things going through his head and is unable to relax. Coccyx area is lightly red but blanchable and has no breakdown. Continues to be weepy intermittently related to recent of 1 of his sons as well as situation of not being able to be discharged as yet; provided opportunity to vent and offered reassurances. Fall risk score is high and bed alarm is activated.
[2023-04-21] MEDS: LEVOTHYROXINE 125 MCG TABLET PO (06:33)
--- NOTE | 2023-04-21 07:51 | PM.PN.1 ---
Subjective Subjective Interval history: No changes. Exam Vital Signs (past 8 hours): Oxygen Delivery Method Room Air Oxygen Flow Rate 0 Narrative Exam Narrative: NAD, normal speech and calm. Objective Labs 03/07/23 09:20 03/07/23 09:20 [facility] Medical History Cerebrovascular accident Chronic GERD Dementia Hyperlipidemia Hypertension Social History household members: children Smoking Status: Former smoker alcohol intake: current Assessment & Plan Assessment & Plan narrative: 1. Unstable discharge for debilitated elderly male with multiple medical comorbidities -Patient remains hospitalized pending appropriate placement.? Discharge planning continues to work with the state regarding long-term care and Medicaid eligibility. 2. History of stroke with left-sided weakness, POA and stable. -Monitor. 3. Coronary artery disease (PCI), POA and stable. ?? -Continue metoprolol. Monitor. 4. Hypertension, POA and stable. -Well controlled on metoprolol. 5. ?Depression and insomnia, POA and stable. -Continue Zoloft and ambien PRN 6. Poor appetite, POA and stable. -had previously been on remeron and marinol -now just on marinol due to remoron causing lethargy 6. Hypothyroidism, POA and stable. -Last labs performed March 07 revealed a TSH 0.02 with a free T4 of 1.73.? Currently, TSH is up to 0.15 and free T4 is 1.49.? Although his free T4 is within normal range, he likely could tolerate it a little bit lower.? Given his persistent low TSH, trailling decrease in his levothyroxine to 125 mcg. Repeating TSH and T4 labs. 7. LE rash with itching - unclear cause - benadryl po PRN and topical hydrocortisone to bilat shins/calves Time Spent With Patient Time with patient: less than 30 minutes Quality VTE Deep Vein Thrombosis/Pulmonary Embolism Present on Admission: No
[2023-04-21] MEDS: CLOPIDOGREL 75 MG TABLET PO (08:51)
[2023-04-21] MEDS: METOPROLOL IR 25 MG TABLET 12.5 MG PO ×2 (08:51→20:19)
[2023-04-21] MEDS: GABAPENTIN 100 MG CAPSULE PO ×2 (08:51→20:19)
[2023-04-21] MEDS: droNABinol 2.5 MG CAPSULE PO (08:52)
[2023-04-21 08:54] VITALS: BP 125/63; PULSE 63
[2023-04-21 10:57] LABS: Thyroid Stimulating Hormone 0.058 uIU/mL (0.47-4.68)
--- NOTE | 2023-04-21 15:40 | CM.DPC ---
[facility] Medicaid LTC SW called pt's assigned [facility] Financial reviewer Deepika Cornelio ([phone]) and she apologized for the lengthy time in completing pt's Financial Review but was currently reviewing to determine if pt would qualify and be approved. Deepika called back at the end of SW shift and states that she has approved the pt for Medicaid LTC as he is Financially eligible and now they just need the Service Start Date and the Level of Care information from their assigned [facility] Functional Hearings Reporter Tory Stack. SW spoke to [facility] Functional Hearings Reporter Tory Stack [phone] as she was scheduled to complete the Functional Assessment bedside with pt today at 1100. Tory states she left a vm for SW in the Care [facility]nmgt office to confirm pt was still in-house and since she did not get a return call she did not arrive bedside. SW inquired if she had attempted to call the RN station to confirm pt's admission and she did not. SW inquired if she had received this SW email last week confirming pt was still admitted and confirming the assessment need and she was unsure if she had received that email. Tory states it could be another couple weeks before she can complete this assessment and JEOVANY requested that she speak to her Utility Bag Assembler Angela to confirm if assessment can be completed by phone or Ipad with SW assist with patient or if his case could be reassigned to another worker in order to get this completed this week. Tory states she will reach out to her Utility Bag Assembler Angela and confirm. SW also emailed this request to Angela including Tory, coworker Esther and Director Ashley to expedite this Functional Assessment as pt has shown signs of Failure to Thrive remaining in the hospital setting and with recent of one of his adult sons. CHARITY Bradshaw
[2023-04-21 19:00] VITALS: BP 140/60; PULSE 63; RESP 20; TEMP 36.6; O2SAT 97
[2023-04-21] MEDS: HYDROCODONE/ACET 10/325 TABLET 1 TAB PO (20:20)
[2023-04-21] MEDS: ZOLPIDEM 5 MG TABLET 10 MG PO (20:20)
[2023-04-21] MEDS: SERTRALINE 50 MG TABLET 100 MG PO (20:20)
[2023-04-21] MEDS: diphenhydrAMINE 25 MG TABLET PO (20:24)
[2023-04-22] MEDS: diazePAM 5 MG TABLET PO ×2 (04:30→21:12)
[2023-04-22] MEDS: HYDROCODONE/ACET 10/325 TABLET 1 TAB PO ×2 (04:43→21:12)
[2023-04-22] MEDS: LEVOTHYROXINE 75 MCG TABLET PO (05:33)
--- NOTE | 2023-04-22 07:49 | PM.PN.1 ---
Subjective Subjective Interval history: TSH 0.058 with normal free T4 at 1.6. Lowered synthroid to 75mcg daily. Exam Vital Signs (past 8 hours): Oxygen Delivery Method Room Air Oxygen Flow Rate 0 Narrative Exam Narrative: NAD, normal speech and calm. Objective Labs 03/07/23 09:20 03/07/23 09:20 Labs: Laboratory Results - last 24 hr 04/21/23 09:58 TSH 0.058 L Free T4 1.60 PFSH Medical History Cerebrovascular accident Chronic GERD Dementia Hyperlipidemia Hypertension Social History household members: children Smoking Status: Former smoker alcohol intake: current Assessment & Plan Assessment & Plan narrative: 1. Unstable discharge for debilitated elderly male with multiple medical comorbidities -Patient remains hospitalized pending appropriate placement.? Discharge planning continues to work with the state regarding long-term care and Medicaid eligibility. 2. History of stroke with left-sided weakness, POA and stable. -Monitor. 3. Coronary artery disease (PCI), POA and stable. ?? -Continue metoprolol. Monitor. 4. Hypertension, POA and stable. -Well controlled on metoprolol. 5. ?Depression and insomnia, POA and stable. -Continue Zoloft and ambien PRN 6. Poor appetite, POA and stable. -had previously been on remeron and marinol -now just on marinol due to remoron causing lethargy 6. Hypothyroidism, POA and stable. -Last labs performed March 07 revealed a TSH 0.02 with a free T4 of 1.73.? Currently, TSH is up to 0.15 and free T4 is 1.49.? Although his free T4 is within normal range, he likely could tolerate it a little bit lower.? Given his persistent low TSH, trailling decrease in his levothyroxine to 125 mcg. Repeating TSH and T4 labs. -repeat TSH on 04/21 is 0.058. Lowered synthroid again to 75mcg daily. Recheck TSH in 4-6 weeks. 7. LE rash with itching - unclear cause - benadryl po PRN and topical hydrocortisone to bilat shins/calves Time Spent With Patient Time with patient: less than 30 minutes Quality VTE Deep Vein Thrombosis/Pulmonary Embolism Present on Admission: No
[2023-04-22] MEDS: droNABinol 2.5 MG CAPSULE PO (08:04)
[2023-04-22] MEDS: GABAPENTIN 100 MG CAPSULE PO ×2 (08:05→21:10)
[2023-04-22] MEDS: CLOPIDOGREL 75 MG TABLET PO (08:05)
[2023-04-22] MEDS: METOPROLOL IR 25 MG TABLET 12.5 MG PO ×2 (08:07→21:11)
[2023-04-22 21:04] VITALS: BP 137/69; PULSE 54; RESP 17; TEMP 36.6; O2SAT 96
[2023-04-22] MEDS: diphenhydrAMINE 25 MG TABLET PO (21:10)
[2023-04-22] MEDS: SERTRALINE 50 MG TABLET 100 MG PO (21:12)
[2023-04-22] MEDS: ZOLPIDEM 5 MG TABLET 10 MG PO (22:14)
[2023-04-23] MEDS: HYDROCODONE/ACET 10/325 TABLET 1 TAB PO ×2 (05:15→21:47)
[2023-04-23] MEDS: diphenhydrAMINE 25 MG TABLET PO (05:15)
[2023-04-23] MEDS: LEVOTHYROXINE 75 MCG TABLET PO (05:17)
[2023-04-23] MEDS: droNABinol 2.5 MG CAPSULE PO (08:38)
[2023-04-23] MEDS: METOPROLOL IR 25 MG TABLET 12.5 MG PO ×2 (08:38→21:48)
[2023-04-23] MEDS: CLOPIDOGREL 75 MG TABLET PO (08:38)
[2023-04-23] MEDS: GABAPENTIN 100 MG CAPSULE PO ×2 (08:38→21:48)
[2023-04-23 21:00] VITALS: TEMP 36.3
[2023-04-23] MEDS: ZOLPIDEM 5 MG TABLET 10 MG PO (21:47)
[2023-04-23] MEDS: SERTRALINE 50 MG TABLET 100 MG PO (21:47)
[2023-04-24] MEDS: LEVOTHYROXINE 75 MCG TABLET PO (06:51)
[2023-04-24 08:17] VITALS: BP 106/60; PULSE 62; RESP 15; TEMP 36.6; O2SAT 98
[2023-04-24] MEDS: GABAPENTIN 100 MG CAPSULE PO ×2 (08:25→20:59)
[2023-04-24] MEDS: CLOPIDOGREL 75 MG TABLET PO (08:25)
[2023-04-24] MEDS: METOPROLOL IR 25 MG TABLET 12.5 MG PO ×2 (08:26→20:59)
[2023-04-24] MEDS: droNABinol 2.5 MG CAPSULE PO (08:29)
[2023-04-24] MEDS: HYDROCODONE/ACET 10/325 TABLET 1 TAB PO ×2 (15:13→19:42)
[2023-04-24] MEDS: BISACODYL 5 MG TABLET PO (15:55)
[2023-04-24 20:13] VITALS: BP 122/65; PULSE 58; RESP 16; TEMP 36.1; O2SAT 97
[2023-04-24] MEDS: ZOLPIDEM 5 MG TABLET 10 MG PO (22:16)
[2023-04-25] MEDS: LEVOTHYROXINE 75 MCG TABLET PO (05:45)
[2023-04-25 08:00] VITALS: BP 114/56; PULSE 59; RESP 16; TEMP 36.4; O2SAT 99
[2023-04-25] MEDS: GABAPENTIN 100 MG CAPSULE PO ×2 (09:16→20:29)
[2023-04-25] MEDS: METOPROLOL IR 25 MG TABLET 12.5 MG PO (09:16)
[2023-04-25] MEDS: CLOPIDOGREL 75 MG TABLET PO (09:16)
[2023-04-25] MEDS: droNABinol 2.5 MG CAPSULE PO (09:19)
[2023-04-25] MEDS: HYDROCODONE/ACET 10/325 TABLET 1 TAB PO ×2 (11:12→20:29)
--- NOTE | 2023-04-25 13:08 | PC.NURSE ---
pt sat in the chair for lunch time. he was in chair for about 2hrs. patient also had a large BM today, he used the commode.
[2023-04-25 19:35] VITALS: BP 112/59; PULSE 55; RESP 16; TEMP 36.3; O2SAT 97
[2023-04-25] MEDS: ZOLPIDEM 5 MG TABLET 10 MG PO (20:29)
[2023-04-25] MEDS: diphenhydrAMINE 25 MG TABLET PO (21:53)
[2023-04-25] MEDS: HYDROCORTISONE 1% CREAM 28 GM 1 APPLIC TOP (22:45)
[2023-04-26] MEDS: LEVOTHYROXINE 75 MCG TABLET PO (05:35)
[2023-04-26] MEDS: GABAPENTIN 100 MG CAPSULE PO ×2 (09:51→21:59)
[2023-04-26] MEDS: CLOPIDOGREL 75 MG TABLET PO (09:52)
[2023-04-26] MEDS: METOPROLOL IR 25 MG TABLET 12.5 MG PO (09:52)
[2023-04-26] MEDS: HYDROCODONE/ACET 10/325 TABLET 1 TAB PO ×2 (09:53→22:59)
[2023-04-26] MEDS: droNABinol 2.5 MG CAPSULE PO (09:54)
[2023-04-26 10:00] VITALS: BP 128/75; PULSE 59; RESP 16; TEMP 36.2; O2SAT 98
--- NOTE | 2023-04-26 10:47 | P.PN_ITS ---
Subjective Subjective Interval history: No changes. Exam Vital Signs (past 8 hours): Oxygen Delivery Method Room Air Oxygen Flow Rate 0 Narrative Exam Narrative: NAD, normal speech and calm. Objective Labs 03/07/23 09:20 03/07/23 09:20 [facility] Medical History Cerebrovascular accident Chronic GERD Dementia Hyperlipidemia Hypertension Social History household members: children Smoking Status: Former smoker alcohol intake: current Assessment & Plan Assessment & Plan narrative: 1. Unstable discharge for debilitated elderly male with multiple medical comorbidities -Patient remains hospitalized pending appropriate placement.? Discharge planning continues to work with the state regarding long-term care and Medicaid eligibility. 2. History of stroke with left-sided weakness, POA and stable. -Monitor. 3. Coronary artery disease (PCI), POA and stable. ?? -Continue metoprolol. Monitor. 4. Hypertension, POA and stable. -Well controlled on metoprolol. 5. ?Depression and insomnia, POA and stable. -Continue Zoloft and ambien PRN 6. Poor appetite, POA and stable. -had previously been on remeron and marinol -now just on marinol due to remoron causing lethargy 6. Hypothyroidism, POA and stable. -Last labs performed March 07 revealed a TSH 0.02 with a free T4 of 1.73.? Currently, TSH is up to 0.15 and free T4 is 1.49.? Although his free T4 is within normal range, he likely could tolerate it a little bit lower.? Given his persistent low TSH, trailling decrease in his levothyroxine to 125 mcg. Repeating TSH and T4 labs. -repeat TSH on 04/21 is 0.058. Lowered synthroid again to 75mcg daily. Recheck TSH in 4-6 weeks. 7. LE rash with itching - unclear cause - benadryl po PRN and topical hydrocortisone to bilat shins/calves Time Spent With Patient Time with patient: less than 30 minutes Quality VTE Deep Vein Thrombosis/Pulmonary Embolism Present on Admission: No
[2023-04-26 21:57] VITALS: BP 122/61; PULSE 57; RESP 16; TEMP 36.8; O2SAT 98
[2023-04-26] MEDS: ZOLPIDEM 5 MG TABLET 10 MG PO (22:58)
[2023-04-27] MEDS: LEVOTHYROXINE 75 MCG TABLET PO (05:34)
--- NOTE | 2023-04-27 06:07 | PC.NURSE ---
Offered to assist patient to chair for breakfast this morning, but patient refused.
[2023-04-27] MEDS: droNABinol 2.5 MG CAPSULE PO (11:49)
[2023-04-27] MEDS: METOPROLOL IR 25 MG TABLET 12.5 MG PO ×2 (11:49→20:36)
[2023-04-27] MEDS: CLOPIDOGREL 75 MG TABLET PO (11:49)
[2023-04-27] MEDS: GABAPENTIN 100 MG CAPSULE PO ×2 (11:49→20:36)
--- NOTE | 2023-04-27 15:16 | CM.DPC ---
Addendum entered by CHARITY Bradshaw 04/28/23 15:08: ADD: Spoke to Netta from [facility] and he is very interested and states since his brother Arie had completed bedside assessment with pt a couple months ago then they would not likely need to meet pt in person. JEOVANY emailed clinicals to Netta at [email or web address]. Per Erlinda securities attorney at [facility], finding placement in [facility] will likely increase pt's chances of getting an accepting Guardian/Conservator through the Medicaid Guardianship [employer] Program as more Guardians are available in that area. BF Addendum entered by CHARITY Bradshaw 04/27/23 16:01: ADD: JEOVANY also spoke to supervisor bottle house cleaners at [facility] and they have 4 facilities and likely have one male Medicaid opening. Willing to review and faxed clinicals to [phone]. BF Original Note: [facility] planning: Pt approved Financially for Medicaid and awaiting Functional Assessment by [facility] Tory Stack [phone] on 05/14/23 at 1100 to determine his Medicaid Daily Rate for placement at a facility. JEOVANY began the process of determining possible open Medicaid beds at [facility]. See below: [facility]: has open Medicaid beds, interested and waiting for fax or email to send clinicals [facility]: has open Medicaid bed, very interested, emailed clinicals to [email or web address] [facility]: full [facility]: Full Patrice Sullivan: Full JEOVANY emailed pt's appoited court visitor/ANSLEY Reyes from [facility] ([phone] [email or web address]) and updated him on the two interested AF in case they reach out to him for additional information. Both above [facility] would like to review the Functional Assessment and Daily Rate prior to accepting pt at this time. CHARITY Bradshaw
[2023-04-27 17:00] VITALS: BP 134/68; PULSE 67; RESP 16; TEMP 37; O2SAT 98
[2023-04-27 20:34] VITALS: BP 133/53; PULSE 58; RESP 17; TEMP 36.6; O2SAT 99
[2023-04-27] MEDS: HYDROCODONE/ACET 10/325 TABLET 1 TAB PO (20:36)
[2023-04-27] MEDS: ZOLPIDEM 5 MG TABLET 10 MG PO (21:59)
[2023-04-28] MEDS: HYDROCODONE/ACET 10/325 TABLET 1 TAB PO ×2 (04:47→21:01)
--- NOTE | 2023-04-28 08:19 | PC.NURSE ---
Patient is in good spirits this morning and he is going to eat some breakfast. States that he did not get any sleep last night. Patient has been having a hard time since his son last week. Will check on patient in an hour.
[2023-04-28 08:25] VITALS: BP 119/68; PULSE 53; RESP 18; TEMP 36.7; O2SAT 96
[2023-04-28] MEDS: GABAPENTIN 100 MG CAPSULE PO ×2 (08:38→21:01)
[2023-04-28] MEDS: LEVOTHYROXINE 75 MCG TABLET PO (08:38)
[2023-04-28] MEDS: CLOPIDOGREL 75 MG TABLET PO (08:38)
[2023-04-28] MEDS: droNABinol 2.5 MG CAPSULE PO (08:39)
[2023-04-28] MEDS: METOPROLOL IR 25 MG TABLET 12.5 MG PO (08:39)
--- NOTE | 2023-04-28 19:15 | PM.PN.1 ---
Subjective Subjective Date Patient Seen: 04/28/23 Time Patient Seen: 08:00 Interval history: No new concerns Exam Vital Signs (past 8 hours): Oxygen Delivery Method Room Air Oxygen Flow Rate 0 Narrative Exam Narrative: no acute distress Objective Labs 03/07/23 09:20 03/07/23 09:20 [facility] Medical History Cerebrovascular accident Chronic GERD Dementia Hyperlipidemia Hypertension Social History household members: children Smoking Status: Former smoker alcohol intake: current Assessment & Plan Assessment & Plan narrative: 1. Unstable discharge for debilitated elderly male with multiple medical comorbidities -Patient remains hospitalized pending appropriate placement.? Discharge planning continues to work with the state regarding long-term care and Medicaid eligibility. 2. History of stroke with left-sided weakness, POA and stable. -Monitor. 3. Coronary artery disease (PCI), POA and stable. ?? -Continue metoprolol. Monitor. 4. Hypertension, POA and stable. -Well controlled on metoprolol. 5. ?Depression and insomnia, POA and stable. -Continue Zoloft and ambien PRN 6. Poor appetite, POA and stable. -had previously been on remeron and marinol -now just on marinol due to remoron causing lethargy 6. Hypothyroidism, POA and stable. -Last labs performed March 07 revealed a TSH 0.02 with a free T4 of 1.73.? Currently, TSH is up to 0.15 and free T4 is 1.49.? Although his free T4 is within normal range, he likely could tolerate it a little bit lower.? Given his persistent low TSH, trailling decrease in his levothyroxine to 125 mcg. Repeating TSH and T4 labs. -repeat TSH on 04/21 is 0.058. Lowered synthroid again to 75mcg daily. Recheck TSH in 4-6 weeks. 7. LE rash with itching - unclear cause - benadryl po PRN and topical hydrocortisone to bilat shins/calves Time Spent With Patient Time with patient: less than 30 minutes Quality VTE Deep Vein Thrombosis/Pulmonary Embolism Present on Admission: No
[2023-04-28] MEDS: ZOLPIDEM 5 MG TABLET 10 MG PO (21:01)
[2023-04-28] MEDS: diphenhydrAMINE 25 MG TABLET PO (21:02)
[2023-04-29] MEDS: LEVOTHYROXINE 75 MCG TABLET PO (05:31)
[2023-04-29 08:00] VITALS: BP 120/68; PULSE 60; RESP 16; TEMP 36.7; O2SAT 98
[2023-04-29] MEDS: GABAPENTIN 100 MG CAPSULE PO ×2 (08:28→21:09)
[2023-04-29] MEDS: CLOPIDOGREL 75 MG TABLET PO (08:28)
[2023-04-29] MEDS: droNABinol 2.5 MG CAPSULE PO (08:28)
[2023-04-29] MEDS: HYDROCODONE/ACET 10/325 TABLET 1 TAB PO ×2 (08:28→21:09)
--- NOTE | 2023-04-29 15:27 | PM.PN.1 ---
Subjective Subjective Interval history: No new complaints Exam Vital Signs (past 8 hours): - 04/29/23 08:00 04/29/23 10:00 Temperature 98.1 F Pulse Rate 60 Respiratory Rate 16 Blood Pressure 120/68 Pulse Oximetry 98 Oxygen Delivery Method Room Air Oxygen Delivery Method Room Air Oxygen Flow Rate 0 Narrative Exam Narrative: no acute distress Objective Labs 03/07/23 09:20 03/07/23 09:20 PFSH Medical History Cerebrovascular accident Chronic GERD Dementia Hyperlipidemia Hypertension Social History household members: children Smoking Status: Former smoker alcohol intake: current Assessment & Plan Assessment & Plan narrative: 1. Unstable discharge for debilitated elderly male with multiple medical comorbidities -Patient remains hospitalized pending appropriate placement.? Discharge planning continues to work with the state regarding long-term care and Medicaid eligibility. 2. History of stroke with left-sided weakness, POA and stable. -Monitor. 3. Coronary artery disease (PCI), POA and stable. ?? -Continue metoprolol. Monitor. 4. Hypertension, POA and stable. -Well controlled on metoprolol. 5. ?Depression and insomnia, POA and stable. -Continue Zoloft and ambien PRN 6. Poor appetite, POA and stable. -had previously been on remeron and marinol -now just on marinol due to remoron causing lethargy 6. Hypothyroidism, POA and stable. -Last labs performed March 07 revealed a TSH 0.02 with a free T4 of 1.73.? Currently, TSH is up to 0.15 and free T4 is 1.49.? Although his free T4 is within normal range, he likely could tolerate it a little bit lower.? Given his persistent low TSH, trailling decrease in his levothyroxine to 125 mcg. Repeating TSH and T4 labs. -repeat TSH on 04/21 is 0.058. Lowered synthroid again to 75mcg daily. Recheck TSH in 4-6 weeks. 7. LE rash with itching - unclear cause - benadryl po PRN and topical hydrocortisone to bilat shins/calves Time Spent With Patient Time with patient: less than 30 minutes Quality VTE Deep Vein Thrombosis/Pulmonary Embolism Present on Admission: No
[2023-04-29] MEDS: diphenhydrAMINE 25 MG TABLET PO ×2 (15:59→22:01)
[2023-04-29] MEDS: ZOLPIDEM 5 MG TABLET 10 MG PO (21:09)
[2023-04-29] MEDS: SERTRALINE 50 MG TABLET 100 MG PO (21:09)
[2023-04-29] MEDS: METOPROLOL IR 25 MG TABLET 12.5 MG PO (21:09)
[2023-04-30] MEDS: diphenhydrAMINE 25 MG TABLET PO (03:36)
[2023-04-30] MEDS: HYDROCODONE/ACET 10/325 TABLET 1 TAB PO ×3 (03:37→18:51)
[2023-04-30] MEDS: LEVOTHYROXINE 75 MCG TABLET PO (05:16)
[2023-04-30 08:00] VITALS: BP 113/61; RESP 16; TEMP 36.9; O2SAT 95
--- NOTE | 2023-04-30 09:33 | PM.PN.1 ---
Subjective Subjective Interval history: Leg leg hurts, no chest pain or dyspnea. Exam Vital Signs (past 8 hours): Oxygen Delivery Method Room Air Oxygen Flow Rate 0 Narrative Exam Narrative: NAD Lungs clear with normal effort CV RRR without M/G/R Abdomen Soft, NT/ND No rash No leg edema Both legs with increased tone. Objective ECG Impression: 1. Unstable discharge for debilitated elderly male with multiple medical co-morbidities -Patient remains hospitalized pending appropriate placement.? Discharge planning continues to work with the state regarding long-term care and Medicaid eligibility. 2. History of stroke with left-sided weakness, POA and stable. -Monitor. 3. Coronary artery disease (PCI), POA and stable. ?? -Continue metoprolol. Monitor. 4. Hypertension, POA and stable. -Well controlled on metoprolol. 5. ?Depression and insomnia, POA and stable. -Continue Zoloft and ambien PRN 6. Poor appetite, POA and stable. -had previously been on remeron and marinol -now just on marinol due to remoron causing lethargy. -will continue. 6. Hypothyroidism, POA and stable. -Last labs performed March 07 revealed a TSH 0.02 with a free T4 of 1.73.? Currently, TSH is up to 0.15 and free T4 is 1.49.? Although his free T4 is within normal range, he likely could tolerate it a little bit lower.? Given his persistent low TSH, trailling decrease in his levothyroxine to 125 mcg. Repeating TSH and T4 labs. -repeat TSH on 04/21 is 0.058. Lowered synthroid again to 75mcg daily. Recheck TSH in 4-6 weeks. 7. LE rash with itching - unclear cause - benadryl po PRN and topical hydrocortisone to bilat shins/calves Labs 03/07/23 09:20 03/07/23 09:20 [facility] Medical History Cerebrovascular accident Chronic GERD Dementia Hyperlipidemia Hypertension Social History household members: children Smoking Status: Former smoker alcohol intake: current Assessment & Plan Time Spent With Patient Time with patient: less than 30 minutes Quality VTE Deep Vein Thrombosis/Pulmonary Embolism Present on Admission: No
[2023-04-30] MEDS: droNABinol 2.5 MG CAPSULE PO (10:52)
[2023-04-30] MEDS: METOPROLOL IR 25 MG TABLET 12.5 MG PO ×2 (10:52→21:07)
[2023-04-30] MEDS: GABAPENTIN 100 MG CAPSULE PO ×2 (10:53→21:07)
[2023-04-30] MEDS: CLOPIDOGREL 75 MG TABLET PO (10:53)
[2023-04-30] MEDS: SERTRALINE 50 MG TABLET 100 MG PO (21:07)
[2023-04-30] MEDS: ZOLPIDEM 5 MG TABLET 10 MG PO (21:07)
[2023-05-01] MEDS: HYDROCODONE/ACET 10/325 TABLET 1 TAB PO ×3 (04:29→20:12)
[2023-05-01] MEDS: LEVOTHYROXINE 75 MCG TABLET PO (06:11)
[2023-05-01 07:52] VITALS: BP 112/56; PULSE 60; RESP 18; TEMP 36.2; O2SAT 98
--- NOTE | 2023-05-01 08:34 | PM.PN.1 ---
Subjective Subjective Interval history: He is not very talkative today, flat affect. He states his throat is sore. He slept well last night. Exam Vital Signs (past 8 hours): - 05/01/23 07:52 Temperature 97.2 F L Pulse Rate 60 Respiratory Rate 18 Blood Pressure 112/56 L Pulse Oximetry 98 Oxygen Flow Rate 0 Oxygen Delivery Method Room Air Oxygen Flow Rate 0 Narrative Exam Narrative: Flat affect, whispering. No distress. Lungs are clear, normal effort. Heart is regular, no murmur. Abdomen is soft, nontender. No skin rash, and no leg edema. Objective Labs 03/07/23 09:20 03/07/23 09:20 [facility] Medical History Cerebrovascular accident Chronic GERD Dementia Hyperlipidemia Hypertension Social History household members: children Smoking Status: Former smoker alcohol intake: current Assessment & Plan Assessment & Plan narrative: 1. Debilitation, with placement pending. 2. Remote stroke with left hemiparesis, present on admission and stable. 3. Hypertension, present on admission and stable. 4. Depression, present on admission and stable. 5. Anorexia, present on admission and stable. 6. Hypothyroidism, present on admission and stable. Plan: Continue current medications without change and encourage activity. Placement is pending. Time Spent With Patient Time with patient: less than 30 minutes Quality VTE Deep Vein Thrombosis/Pulmonary Embolism Present on Admission: No
[2023-05-01] MEDS: METOPROLOL IR 25 MG TABLET 12.5 MG PO ×2 (09:42→20:12)
[2023-05-01] MEDS: droNABinol 2.5 MG CAPSULE PO (09:42)
[2023-05-01] MEDS: GABAPENTIN 100 MG CAPSULE PO ×2 (09:42→20:12)
[2023-05-01] MEDS: CLOPIDOGREL 75 MG TABLET PO (09:42)
[2023-05-01] MEDS: SERTRALINE 50 MG TABLET 100 MG PO (20:13)
[2023-05-01] MEDS: ZOLPIDEM 5 MG TABLET 10 MG PO (21:12)
[2023-05-01] MEDS: HYDROCORTISONE 1% CREAM 28 GM 1 APPLIC TOP (21:15)
[2023-05-02] MEDS: diphenhydrAMINE 25 MG TABLET PO (04:52)
[2023-05-02] MEDS: HYDROCODONE/ACET 10/325 TABLET 1 TAB PO ×2 (04:52→21:00)
[2023-05-02] MEDS: LEVOTHYROXINE 75 MCG TABLET PO (05:04)
[2023-05-02 07:00] VITALS: BP 113/58; PULSE 61; RESP 18; TEMP 36.1; O2SAT 97
--- NOTE | 2023-05-02 08:35 | P.PN_ITS ---
Subjective Subjective Date Patient Seen: 05/02/23 Interval history: He is seen in his room here to follow-up the weakness and insomnia. He is quite convinced the Ambien is not helping his sleep. This is somebody who naps all during the day but wishes to be sound asleep at night. He would like a stronger sleeping pill. We will trial him on Seroquel. That is likely not the 1st time but we will see how he does tomorrow. There are no new labs to review. It is looking like he will be placed an adult family home in the next few months. Exam Vital Signs (past 8 hours): - 05/02/23 07:00 Oxygen Delivery Method Room Air Oxygen Delivery Method Room Air Oxygen Flow Rate 0 Narrative Exam Narrative: Slurred speech, several epithets Heart: RRR without murmur Lungs: Bilateral wheezing Ext: No ankle edema. Objective Labs 03/07/23 09:20 03/07/23 09:20 [facility] Medical History Cerebrovascular accident Chronic GERD Dementia Hyperlipidemia Hypertension Social History household members: children Smoking Status: Former smoker alcohol intake: current Assessment & Plan Assessment & Plan narrative: 1. Debilitation, with placement pending. 2. Remote stroke with left hemiparesis, present on admission and stable. 3. Hypertension, present on admission and stable. 4. Depression, present on admission and stable. 5. Anorexia, present on admission and stable. 6. Hypothyroidism, present on admission and stable. 7. Insomnia - Continue Ambien. Trial of Seroquel on 05/02/23. Plan: Continue current medications without change and encourage activity. Placement is pending. Quality VTE Deep Vein Thrombosis/Pulmonary Embolism Present on Admission: No
[2023-05-02] MEDS: GABAPENTIN 100 MG CAPSULE PO ×2 (09:57→21:00)
[2023-05-02] MEDS: CLOPIDOGREL 75 MG TABLET PO (09:57)
[2023-05-02] MEDS: METOPROLOL IR 25 MG TABLET 12.5 MG PO ×2 (09:57→20:58)
[2023-05-02] MEDS: droNABinol 2.5 MG CAPSULE PO (09:58)
--- NOTE | 2023-05-02 18:30 | PC.NURSE ---
Addendum entered by Juliet Ro R.N. 05/02/23 19:34: orders to send for UA when patient uses urinal. clean urinal placed at bedside. Original Note: patient is more sleepy, withdrawn. has strong body odor, noted to be scratching at rosita-area. able to give bed bath at end of shift. urine noted to have a strong odor, will request order to check urine for infection. fluids available at bedside. bed alarm on, call light w/in reach.
[2023-05-02] MEDS: SERTRALINE 50 MG TABLET 100 MG PO (21:00)
[2023-05-02] MEDS: QUETIAPINE 25 MG TABLET PO (21:01)
[2023-05-02] MEDS: HYDROCORTISONE 1% CREAM 28 GM 1 APPLIC TOP (23:09)
[2023-05-03 02:36] LABS: Appearance Urine UA CLEAR; Bilirubin Urine UA NEGATIVE (NEGATIVE); Color Urine UA YELLOW; Glucose Urine UA NEGATIVE (Negative); Ketones Urine UA NEGATIVE (NEGATIVE); Leukocyte Esterase Urine UA NEGATIVE (NEGATIVE); Nitrite Urine UA NEGATIVE (Negative); Occult Blood Urine UA NEGATIVE (Negative); Protein Urine UA NEGATIVE (Negative); Urobilinogen Urine UA 0.2 E.U./dL (0.2); pH Urine UA 5.5 (4.5-8.0)
[2023-05-03 03:16] LABS: Amorphous Sediment Urine 2+; Bacteria Urine Few (2-10); Culture Indicated Urine Specimen Cultured; RBC Urine None Seen (0-5/HPF); Squamous Epithelial Cell Urine 1-5 /HPF (0-5/HPF); WBC Urine 0-1/HPF (0-5/HPF)
[2023-05-03 07:00] VITALS: BP 121/62; PULSE 56; RESP 19; TEMP 36.9; O2SAT 98
[2023-05-03] MEDS: LEVOTHYROXINE 75 MCG TABLET PO (07:00)
[2023-05-03 08:04] VITALS: BP 121/62; PULSE 56; RESP 18; TEMP 36.9; O2SAT 98
[2023-05-03] MEDS: droNABinol 2.5 MG CAPSULE PO (10:01)
[2023-05-03] MEDS: GABAPENTIN 100 MG CAPSULE PO ×2 (10:01→20:48)
[2023-05-03] MEDS: CLOPIDOGREL 75 MG TABLET PO (10:03)
[2023-05-03] MEDS: METOPROLOL IR 25 MG TABLET 12.5 MG PO (10:03)
--- NOTE | 2023-05-03 13:39 | PM.PN.1 ---
Subjective Subjective Interval history: He is still awaiting upcoming court date. Medicaid has been approved. Exam Vital Signs (past 8 hours): - 05/03/23 07:00 05/03/23 08:04 Temperature 98.5 F 98.5 F Pulse Rate 56 L 56 L Respiratory Rate 19 18 Blood Pressure 121/62 121/62 Pulse Oximetry 98 98 Oxygen Flow Rate 0 0 Oxygen Delivery Method Room Air Oxygen Flow Rate 0 Narrative Exam Narrative: Flat affect, whispering. No distress. Lungs are clear, normal effort. Heart is regular, no murmur. Abdomen is soft, nontender. No skin rash, and no leg edema. Objective Labs 03/07/23 09:20 03/07/23 09:20 Labs: Laboratory Results - last 24 hr 05/02/23 22:00 Urine Color Yellow Urine Appearance Clear Urine pH 5.5 Ur Specific [place] 1.020 Urine Protein Negative Urine Glucose (UA) Negative Urine Ketones Negative Urine Occult Blood Negative Urine Nitrate Negative Urine Bilirubin Negative Urine Urobilinogen 0.2 Ur Leukocyte Esterase Negative Urine RBC None seen Urine WBC 0-1/hpf Ur Squamous Epith Cells 1-5 /hpf Amorphous Sediment 2+ Urine Bacteria Few (2-10) H Ur Culture Indicated? Specimen cultured [facility] Medical History Cerebrovascular accident Chronic GERD Dementia Hyperlipidemia Hypertension Social History household members: children Smoking Status: Former smoker alcohol intake: current Assessment & Plan Assessment & Plan narrative: 1. Debilitation, with placement pending. 2. Remote stroke with left hemiparesis, present on admission and stable. 3. Hypertension, present on admission and stable. 4. Depression, present on admission and stable. 5. Anorexia, present on admission and stable. 6. Hypothyroidism, present on admission and stable. 7. Insomnia - Continue Ambien. Trial of Seroquel on 05/02/23. Plan: Continue current medications without change and encourage activity. Placement is pending. Quality VTE Deep Vein Thrombosis/Pulmonary Embolism Present on Admission: No
--- NOTE | 2023-05-03 18:32 | PC.NURSE ---
pt has been sleeping on off all shift -grumpy most day but did get up to chair for meal other romero no c/o
[2023-05-03] MEDS: HYDROCODONE/ACET 10/325 TABLET 1 TAB PO (20:47)
[2023-05-03] MEDS: SERTRALINE 50 MG TABLET 100 MG PO (20:48)
[2023-05-03] MEDS: ZOLPIDEM 5 MG TABLET 10 MG PO (20:50)
[2023-05-03 20:51] VITALS: BP 126/52; PULSE 53; RESP 16; TEMP 37; O2SAT 98
[2023-05-04] MEDS: HYDROCORTISONE 1% CREAM 28 GM 1 APPLIC TOP ×2 (00:15→10:38)
[2023-05-04] MEDS: LEVOTHYROXINE 75 MCG TABLET PO (05:29)
--- NOTE | 2023-05-04 07:26 | PC.NURSE ---
Pt has been crying on and off throughout the shift. At times he would help staff with repositioning in bed. Using the urinal most of the night, until this am when he urinated on himself and needed to be change. Pt probable slept 4 hours last night. metoprolo held due to HR of 53.
[2023-05-04 08:46] VITALS: BP 136/63; PULSE 57; RESP 18; TEMP 37.1; O2SAT 96
[2023-05-04] MEDS: METOPROLOL IR 25 MG TABLET 12.5 MG PO ×2 (09:02→20:08)
[2023-05-04] MEDS: GABAPENTIN 100 MG CAPSULE PO ×2 (09:02→20:08)
[2023-05-04] MEDS: droNABinol 2.5 MG CAPSULE PO (09:02)
[2023-05-04] MEDS: HYDROCODONE/ACET 10/325 TABLET 1 TAB PO ×3 (09:02→23:21)
[2023-05-04] MEDS: CLOPIDOGREL 75 MG TABLET PO (09:03)
--- NOTE | 2023-05-04 11:26 | CM.DPC ---
Addendum entered by CHARITY Bradshaw 05/04/23 13:49: ADD: SW [facility] bedside with pt tomorrow 05/05 and SW confirmed they could to make final determination if they would accept pt at their facility. JEOVANY met bedside with pt and explained role and updated him on the Guardian Mark accepting the position and court hearing on Thu this week as well as [facility] [place] coming to do bedside assessment with pt tomorrow. He is agreeable and would like to meet Guardian Mark if possible and willing for the bedside assessment with [facility] tomorrow. SW discussed process getting much closer to pt being able to leave the hospital into a more appropriate and enjoyable setting and pt acknowledged understanding. JEOVANY updated MD and RN. BF Original Note: Guardianship/Placement SW had conference call with David Grimm Environmental Analyst Erlinda today and she confirms that pt now has an accepting Guardian/Conservator: Mark Santoro Guardianship [facility] #[id number] [phone] Iphone Danielle [email or web address] [address] [place] [id number] Erlinda states that pt has an upcoming hearing this week ThuMay 08 at 0900 and this is for the [employer] to officially appoint Mark Araujo as the pt's official Guardian/Conservator. Prior to this hearing, pt's current assigned Court Visitor Breezy Reyes has to complete his report to provide to the court and Erlinda will contact Breezy today to update and discuss. JEOVANY confirmed that with Breezy that he is working on the court report now. Erlinda states that pt might need to be present during the court hearing on Thursday via Ipad but Erlinda will keep JEOVANY updated on this as the week progresses. JEOVANY called [facility] Functional Orthotics Assistant Tory Stack [phone] and confirmed she is currently on annual leave until May 08. CHARITY Bradshaw
[2023-05-04] MEDS: SERTRALINE 50 MG TABLET 100 MG PO (20:08)
--- NOTE | 2023-05-04 20:08 | PM.PN.1 ---
Subjective Subjective Date Patient Seen: 05/04/23 Time Patient Seen: 08:00 Interval history: No changes. Exam Vital Signs (past 8 hours): Oxygen Delivery Method Room Air Oxygen Flow Rate 0 Narrative Exam Narrative: GEN: no acute distress Objective Labs 03/07/23 09:20 03/07/23 09:20 Labs: Laboratory Results - last 24 hr 05/02/23 22:00 Urine Color Yellow Urine Appearance Clear Urine pH 5.5 Ur Specific [place] 1.020 Urine Protein Negative Urine Glucose (UA) Negative Urine Ketones Negative Urine Occult Blood Negative Urine Nitrate Negative Urine Bilirubin Negative Urine Urobilinogen 0.2 Ur Leukocyte Esterase Negative Urine RBC None seen Urine WBC 0-1/hpf Ur Squamous Epith Cells 1-5 /hpf Amorphous Sediment 2+ Urine Bacteria Few (2-10) H Ur Culture Indicated? Specimen cultured [facility] Medical History Cerebrovascular accident Chronic GERD Dementia Hyperlipidemia Hypertension Social History household members: children Smoking Status: Former smoker alcohol intake: current Assessment & Plan Assessment & Plan narrative: 1. Debilitation, with placement pending. 2. Remote stroke with left hemiparesis, present on admission and stable. 3. Insomnia - Continue Ambien. Trial of Seroquel on 05/02/23. Plan: Placement is pending. Quality VTE Deep Vein Thrombosis/Pulmonary Embolism Present on Admission: No
[2023-05-04] MEDS: QUETIAPINE 25 MG TABLET PO (23:21)
[2023-05-04] MEDS: ZOLPIDEM 5 MG TABLET 10 MG PO (23:21)
[2023-05-05 05:44] LABS: Hemoglobin 8.6 g/dL (13.5-17.5); Mean Corpuscular HGB Conc 33.1 % (30-36); Mean Corpuscular Hemoglobin 26.9 PG (26-34); Mean Corpuscular Volume 81.1 fL (80-100); Platelet Count 260 X10^3/uL (150-400); Red Cell Distribution Width 15.5 % (11.6-14.8); White Blood Cell Count 5.8 X10^3/uL (4.5-11.0)
[2023-05-05 06:39] LABS: BUN Creatinine Ratio 27.2 (6-22); Blood Urea Nitrogen 31 mg/dL (9-20); Calcium 9.4 mg/dL (8.4-10.2); Carbon Dioxide 25 mmol/L (22-32); Chloride 106 mmol/L (98-107); Estimated Glomerular Filt Rate > 60 mL/min (>60); Glucose 97 mg/dL (80-110); HEMOLYSIS < 15 (0-50); Potassium 4.5 mmol/L (3.4-5.1); Sodium 134 mmol/L (137-145)
[2023-05-05 09:00] VITALS: BP 136/63; PULSE 57; RESP 18; TEMP 37.1; O2SAT 96
[2023-05-05] MEDS: CLOPIDOGREL 75 MG TABLET PO (10:18)
[2023-05-05] MEDS: METOPROLOL IR 25 MG TABLET 12.5 MG PO (10:18)
[2023-05-05] MEDS: GABAPENTIN 100 MG CAPSULE PO ×2 (10:18→21:58)
[2023-05-05] MEDS: DOCUSATE 100 MG CAPSULE PO (10:18)
[2023-05-05] MEDS: TRIMETH/SULFA 160/800 (DS) TABLET 1 TAB PO ×2 (13:27→21:58)
--- NOTE | 2023-05-05 13:47 | PM.PN.1 ---
Subjective Subjective Date Patient Seen: 05/05/23 Time Patient Seen: 08:00 Interval history: No new concerns Exam Vital Signs (past 8 hours): - 05/05/23 09:00 Temperature 98.8 F Pulse Rate 57 L Respiratory Rate 18 Blood Pressure 136/63 Pulse Oximetry 96 Oxygen Flow Rate 0 Oxygen Delivery Method Room Air Oxygen Flow Rate 0 Narrative Exam Narrative: GEN: no acute distress Objective Labs 05/05/23 05:02 05/05/23 05:02 Labs: Laboratory Results - last 24 hr 05/05/23 05:02 WBC 5.8 RBC 3.20 L Hgb 8.6 L Hct 26.0 L MCV 81.1 MCH 26.9 MCHC 33.1 RDW 15.5 H Plt Count 260 Sodium 134 L Potassium 4.5 Chloride 106 Carbon Dioxide 25 BUN 31 H Creatinine 1.14 Estimated GFR > 60 BUN/Creatinine Ratio 27.2 H Glucose 97 Calcium 9.4 PFSH Medical History Cerebrovascular accident Chronic GERD Dementia Hyperlipidemia Hypertension Social History household members: children Smoking Status: Former smoker alcohol intake: current Assessment & Plan Assessment & Plan narrative: 1. UTI -ordered bactrim for plan for 5 days, day 1 05/05 2. Debilitation, with placement pending. 3. Remote stroke with left hemiparesis, present on admission and stable. 4. Insomnia - Continue Ambien. Trial of Seroquel on 05/02/23. Plan: Placement is pending. Quality VTE Deep Vein Thrombosis/Pulmonary Embolism Present on Admission: No
--- NOTE | 2023-05-05 14:27 | CM.DPC ---
[facility] and Guardianship Cont: SW met bedside with pt and Netta and Arie from [facility] and introduced them and they explained their facility to the pt and answered the few questions pt had regarding their facility. SW and RN provided additional information regarding pt's care needs and assist level. They confirm they have private room available and feel that pt would be a good fit for their Adult Family Home and will wait for [facility] Functional Assessment/Daily Rate to be determined next week but state they could likely accept. SW explained that pt may have an accepting Guardian appointed and will provide their information to the Guardian once the court hearing is completed and they were very appreciative and agreeable. JEOVANY also received a call from Mehdi from [facility] requesting to do a bedside visit with patient tomorrow 05/06 in the afternoon to meet the pt and answer questions. JEOVANY received information from [facility] stating the interested Guardian Mark Araujo ([phone]) will need to visit pt either in person or via media contact and then make determination within 3 days if they accept the Guardianship appointment. JEOVANY reached out to Mark Araujo via email [email or web address] to help coordinate a visit with the pt either today or tomorrow. JEOVANY also called Mark via phone and Mark requested call back in half an hour. Plan: JEOVANY to follow closely for coordination of visit between pt and potential Guardian Mark Araujo as well and maintaining contact with [facility] and the 2-3 [facility] interested in accepting pt. CHARITY Bradshaw
[2023-05-05] MEDS: HYDROCODONE/ACET 10/325 TABLET 1 TAB PO (21:58)
[2023-05-05] MEDS: SERTRALINE 50 MG TABLET 100 MG PO (21:58)
[2023-05-05] MEDS: QUETIAPINE 25 MG TABLET PO (21:58)
[2023-05-06] MEDS: HYDROCODONE/ACET 10/325 TABLET 1 TAB PO ×2 (01:45→20:39)
[2023-05-06] MEDS: LEVOTHYROXINE 75 MCG TABLET PO (05:54)
[2023-05-06] MEDS: CLOPIDOGREL 75 MG TABLET PO (08:27)
[2023-05-06] MEDS: METOPROLOL IR 25 MG TABLET 12.5 MG PO ×2 (08:27→20:38)
[2023-05-06] MEDS: TRIMETH/SULFA 160/800 (DS) TABLET 1 TAB PO ×2 (08:27→20:46)
[2023-05-06] MEDS: GABAPENTIN 100 MG CAPSULE PO ×2 (08:27→20:38)
[2023-05-06 09:00] VITALS: BP 128/62; PULSE 60; RESP 16; TEMP 36.5; O2SAT 95
--- NOTE | 2023-05-06 14:24 | PM.PN.1 ---
Subjective Subjective Date Patient Seen: 05/06/23 Time Patient Seen: 08:00 Interval history: No new concerns Exam Vital Signs (past 8 hours): - 05/06/23 09:00 Temperature 97.7 F Pulse Rate 60 Respiratory Rate 16 Blood Pressure 128/62 Pulse Oximetry 95 Oxygen Flow Rate 0 Oxygen Delivery Method Room Air Oxygen Flow Rate 0 Narrative Exam Narrative: GEN: no acute distress Objective Labs 05/05/23 05:02 05/05/23 05:02 PF[facility] Medical History Cerebrovascular accident Chronic GERD Dementia Hyperlipidemia Hypertension Social History household members: children Smoking Status: Former smoker alcohol intake: current Assessment & Plan Assessment & Plan narrative: 1. UTI -ordered bactrim for plan for 5 days, day 1 05/05 2. Debilitation, with placement pending. 3. Remote stroke with left hemiparesis, present on admission and stable. 4. Insomnia - Continue Ambien. Trial of Seroquel on 05/02/23. Plan: Placement is pending. Quality VTE Deep Vein Thrombosis/Pulmonary Embolism Present on Admission: No
--- NOTE | 2023-05-06 15:06 | CM.DPC ---
[facility] placement Cont: SW assisted pt with introduction to interested Guardian/Conservator Mark Araujo ([phone]) via Zoom Call with pt and pt was agreeable and talked to Mark and Mark confirms that he is willing to be pt's appointed Guardian and pt is also agreeable. SW also presented pt's documents provided by [facility] Supervisor Rod Placing Erlinda with upcoming Guardianship hearing this Fri 05/08 0900 that states Mark Araujo is a willing Guardian for the pt and the recent filings to the courts. JEOVANY signed the Return of Service forms and emailed back to Erlinda at [facility]. SW also discussed with pt the possible bedside assessment this afternoon with Mehdi from [facility] and pt was agreeable but pt and Guardian in agreement that preference for placement would be in [facility] if possible. JEOVANY continued the process of determining possible open Medicaid beds at Adult Family Homes in [facility] and [facility]. See below: [facility] AFHs: [place] [facility] [place] [facility]: full [place]: Full [place]: Full [facility]: Full [place]: Full [place]: Full [facility] AFHs: [place]: msg [facility]: no answer [facility]: full but two residents on Hospice, can check back in a week or two [facility] [facility]: Full [place]: Full [place] [facility]: Full [facility]: has opening, willing to review, emailed Shane at [email or web address] [facility]: msg [facility]: Full [facility]: full but can check back with Kate [phone] in a week to confirm [place]: shared room, discussed pt, willing to review and do bedside assess this Sat 05/09 around 1030 to see if good fit. [facility] [place]: Full Currently interested and reviewing AF: [facility]: completed bedside assessment and interested. [facility]: plans to do bedside assessment today. [facility] [place]: reviewing [facility]: reviewing and can do bedside assess this weekend. CHARITY Bradshaw
[2023-05-06] MEDS: QUETIAPINE 25 MG TABLET PO (20:38)
[2023-05-06] MEDS: SERTRALINE 50 MG TABLET 100 MG PO (20:39)
[2023-05-07] MEDS: LEVOTHYROXINE 75 MCG TABLET PO (04:49)
[2023-05-07] MEDS: HYDROCODONE/ACET 10/325 TABLET 1 TAB PO ×2 (04:49→08:03)
[2023-05-07] MEDS: diphenhydrAMINE 25 MG TABLET PO (04:51)
[2023-05-07 08:00] VITALS: BP 126/65; PULSE 55; RESP 16; TEMP 36.6; O2SAT 93
[2023-05-07] MEDS: HYDROCORTISONE 1% CREAM 28 GM 1 APPLIC TOP (08:02)
[2023-05-07] MEDS: CLOPIDOGREL 75 MG TABLET PO (08:03)
[2023-05-07] MEDS: GABAPENTIN 100 MG CAPSULE PO ×2 (08:03→20:36)
[2023-05-07] MEDS: TRIMETH/SULFA 160/800 (DS) TABLET 1 TAB PO (08:03)
--- NOTE | 2023-05-07 09:06 | PM.PN.1 ---
Subjective Subjective Interval history: Patient thinks he may finally have a place to live. Denies any urinary complaints. Exam Vital Signs (past 8 hours): - 05/07/23 08:00 Temperature 98 F Pulse Rate 55 L Respiratory Rate 16 Blood Pressure 126/65 Pulse Oximetry 93 Oxygen Delivery Method Room Air Oxygen Flow Rate 0 Narrative Exam Narrative: GEN: no acute distress Objective Labs 05/05/23 05:02 05/05/23 05:02 PFSH Medical History Cerebrovascular accident Chronic GERD Dementia Hyperlipidemia Hypertension Social History household members: children Smoking Status: Former smoker alcohol intake: current Assessment & Plan Assessment & Plan narrative: 1. Debilitation, with placement pending. 2. UTI ruled out, UA negative 3. Remote stroke with left hemiparesis, present on admission and stable. 4. Insomnia - Continue Ambien. Trial of Seroquel on 05/02/23. Plan: Placement is pending. Quality VTE Deep Vein Thrombosis/Pulmonary Embolism Present on Admission: No
[2023-05-07] MEDS: METOPROLOL IR 25 MG TABLET 12.5 MG PO (11:53)
[2023-05-07] MEDS: SERTRALINE 50 MG TABLET 100 MG PO (20:36)
[2023-05-07] MEDS: ZOLPIDEM 5 MG TABLET 10 MG PO (20:36)
[2023-05-07] MEDS: QUETIAPINE 25 MG TABLET PO (20:36)
[2023-05-08] MEDS: LEVOTHYROXINE 75 MCG TABLET PO (06:48)
--- NOTE | 2023-05-08 08:19 | P.PN_ITS ---
Subjective Subjective Interval history: Having itchy bilateral calves and upper thighs. Hydrocortisone cream has been less effective lately. Exam Vital Signs (past 8 hours): Oxygen Delivery Method Room Air Oxygen Flow Rate 0 Narrative Exam Narrative: GEN: no acute distress SKIN: dry skin without visible rash on bilateral calves, scratch murphy from itching Objective Labs 05/05/23 05:02 05/05/23 05:02 [facility] Medical History Cerebrovascular accident Chronic GERD Dementia Hyperlipidemia Hypertension Social History household members: children Smoking Status: Former smoker alcohol intake: current Assessment & Plan Assessment & Plan narrative: 1. Debilitation, with placement pending. 2. UTI ruled out, UA negative 3. Remote stroke with left hemiparesis, present on admission and stable. 4. Insomnia - Continue Ambien. Trial of Seroquel on 05/02/23. 5. Itching of LE's - Kenalog cream BID PRN Plan: Placement is pending. Quality VTE Deep Vein Thrombosis/Pulmonary Embolism Present on Admission: No
[2023-05-08] MEDS: METOPROLOL IR 25 MG TABLET 12.5 MG PO ×2 (09:49→20:46)
[2023-05-08] MEDS: CLOPIDOGREL 75 MG TABLET PO (09:49)
[2023-05-08] MEDS: GABAPENTIN 100 MG CAPSULE PO ×2 (09:49→20:45)
[2023-05-08] MEDS: droNABinol 2.5 MG CAPSULE PO (10:25)
[2023-05-08 10:52] VITALS: BP 131/60; PULSE 74; RESP 19; TEMP 36.3; O2SAT 96
--- NOTE | 2023-05-08 10:56 | CM.DPNOTE ---
Addendum entered by CHARITY Yadav 05/09/23 14:49: ADD: Patient had a Visit with licensed therapist, provider Melvin from [facility] today, Melvin felt the visit went very well and that patient would be a good fit in their AFH in [place] [phone]. Acceptance pending completion of patient's functional assessment and assignment of daily rate. JW Addendum entered by CHARITY Yadav 05/08/23 14:31: ADD: Visit went very well. [facility] is on [facility]. Patient and licensed therapist Shane agree [facility] could be a great fit for patient. This [place] PAINTER will keep in touch with Shane and spouse Crystal once patient's functional assessment is complete and daily rate is available ERIC Original Note: AFH Placement Shane from [facility] coming to visit patient this morning. Contact: Maya [phone] email: [email or web address] [phone] Updated patient, he is appreciative for all work being done on his behalf. ERIC
--- NOTE | 2023-05-08 11:17 | PC.NURSE ---
Day shift: Adult family home people are here now (1115) and talking w/ Pt. CM made aware.
--- NOTE | 2023-05-08 12:04 | PC.NURSE ---
Day shift: Back in bed 2 ppl assist at this time. Was in chair for about 2 hours and tolerated well. No complaints. Stated Those people were very nice. In regards to the adult family home people.
--- NOTE | 2023-05-08 14:34 | CM.DPNOTE ---
Guardianship According to Erlinda at [facility], The Court has appointed REAGAN Goldberg as patient's full guardian and conservator this morning. Breezy Reyes?s interim authority is terminated. REAGAN Goldberg [facility] Guardianship [address] [place] [id number] [email or web address] JW
[2023-05-08] MEDS: SERTRALINE 50 MG TABLET 100 MG PO (20:45)
[2023-05-08 22:45] VITALS: BP 158/74; PULSE 90; RESP 16; TEMP 36; O2SAT 96
[2023-05-09] MEDS: BISACODYL 5 MG TABLET PO (00:06)
[2023-05-09] MEDS: HYDROCODONE/ACET 10/325 TABLET 1 TAB PO ×2 (00:23→23:23)
[2023-05-09 05:20] VITALS: BP 152/60; PULSE 54; RESP 19; TEMP 36.3; O2SAT 97
[2023-05-09] MEDS: LEVOTHYROXINE 75 MCG TABLET PO (06:23)
--- NOTE | 2023-05-09 08:16 | PM.PN.1 ---
Subjective Subjective Interval history: No complaints. Exam Vital Signs (past 8 hours): - 05/09/23 05:20 Temperature 97.3 F L Pulse Rate 54 L Respiratory Rate 19 Blood Pressure 152/60 H Pulse Oximetry 97 Oxygen Flow Rate 0 Oxygen Delivery Method Room Air Oxygen Flow Rate 0 Narrative Exam Narrative: GEN: no acute distress SKIN: dry skin without visible rash on bilateral calves, scratch murphy from itching Objective Labs 05/05/23 05:02 05/05/23 05:02 [facility] Medical History Cerebrovascular accident Chronic GERD Dementia Hyperlipidemia Hypertension Social History household members: children Smoking Status: Former smoker alcohol intake: current Assessment & Plan Assessment & Plan narrative: 1. Debilitation, with placement pending. 2. UTI ruled out, UA negative 3. Remote stroke with left hemiparesis, present on admission and stable. 4. Insomnia - Continue Ambien. Trial of Seroquel on 05/02/23. 5. Itching of LE's - Kenalog cream BID PRN Plan: Placement is pending. Quality VTE Deep Vein Thrombosis/Pulmonary Embolism Present on Admission: No
[2023-05-09] MEDS: droNABinol 2.5 MG CAPSULE PO ×2 (08:52→15:48)
[2023-05-09] MEDS: METOPROLOL IR 25 MG TABLET 12.5 MG PO ×2 (09:03→21:10)
[2023-05-09] MEDS: GABAPENTIN 100 MG CAPSULE PO ×2 (09:03→21:10)
[2023-05-09] MEDS: CLOPIDOGREL 75 MG TABLET PO (09:04)
[2023-05-09 09:08] VITALS: BP 145/73; PULSE 66; RESP 12; TEMP 36.7; O2SAT 97
--- NOTE | 2023-05-09 14:45 | PC.NURSE ---
Pt A&Ox4, VSS. Visit from a malik in afternoon. Contacted son by phone at [phone].
[2023-05-09] MEDS: TRIAMCINOLONE 0.1% CREAM 15 GM 1 APPLIC TOP (21:10)
[2023-05-09] MEDS: SERTRALINE 50 MG TABLET 100 MG PO (21:10)
[2023-05-09] MEDS: ZOLPIDEM 5 MG TABLET 10 MG PO (23:23)
[2023-05-09] MEDS: QUETIAPINE 25 MG TABLET PO (23:23)
[2023-05-10] MEDS: LEVOTHYROXINE 75 MCG TABLET PO (06:54)
--- NOTE | 2023-05-10 07:34 | P.PN_ITS ---
Subjective Subjective Interval history: No complaints. Exam Vital Signs (past 8 hours): Oxygen Delivery Method Room Air Oxygen Flow Rate 0 Narrative Exam Narrative: GEN: no acute distress SKIN: dry skin without visible rash on bilateral calves, scratch murphy from itching Objective Labs 05/05/23 05:02 05/05/23 05:02 [facility] Medical History Cerebrovascular accident Chronic GERD Dementia Hyperlipidemia Hypertension Social History household members: children Smoking Status: Former smoker alcohol intake: current Assessment & Plan Assessment & Plan narrative: 1. Debilitation, with placement pending. 2. UTI ruled out, UA negative 3. Remote stroke with left hemiparesis, present on admission and stable. 4. Insomnia - Continue Ambien. Trial of Seroquel on 05/02/23. 5. Itching of LE's - Kenalog cream BID PRN Plan: Placement is pending. Quality VTE Deep Vein Thrombosis/Pulmonary Embolism Present on Admission: No
[2023-05-10] MEDS: droNABinol 2.5 MG CAPSULE PO ×2 (08:01→14:28)
[2023-05-10] MEDS: CLOPIDOGREL 75 MG TABLET PO (08:01)
[2023-05-10] MEDS: METOPROLOL IR 25 MG TABLET 12.5 MG PO (08:02)
[2023-05-10] MEDS: GABAPENTIN 100 MG CAPSULE PO ×2 (08:02→20:50)
[2023-05-10 09:00] VITALS: PULSE 60; RESP 18; TEMP 36.7; O2SAT 96
[2023-05-10] MEDS: HYDROCODONE/ACET 10/325 TABLET 1 TAB PO ×2 (14:28→20:54)
[2023-05-10] MEDS: BISACODYL 5 MG TABLET PO (14:28)
[2023-05-10] MEDS: SERTRALINE 50 MG TABLET 100 MG PO (20:50)
[2023-05-10] MEDS: ZOLPIDEM 5 MG TABLET 10 MG PO (20:50)
[2023-05-10 21:00] VITALS: BP 118/55; PULSE 55
[2023-05-11] MEDS: HYDROCODONE/ACET 10/325 TABLET 1 TAB PO ×2 (01:36→22:07)
[2023-05-11] MEDS: TRIAMCINOLONE 0.1% CREAM 15 GM 1 APPLIC TOP (02:02)
[2023-05-11] MEDS: droNABinol 2.5 MG CAPSULE PO ×2 (06:42→16:22)
[2023-05-11] MEDS: LEVOTHYROXINE 75 MCG TABLET PO (06:42)
--- NOTE | 2023-05-11 06:46 | PC.NURSE ---
Patient is calm and cooperative this shift, slept most of the night. Complaints of itchiness in groin area, Kenalog cream applied. Declined brief change this morning.
[2023-05-11] MEDS: CLOPIDOGREL 75 MG TABLET PO (09:05)
[2023-05-11] MEDS: METOPROLOL IR 25 MG TABLET 12.5 MG PO (09:05)
[2023-05-11] MEDS: GABAPENTIN 100 MG CAPSULE PO ×2 (09:05→22:07)
--- NOTE | 2023-05-11 13:28 | CM.DPC ---
Addendum entered by CHARITY Yadav 05/14/23 15:14: ADD: Left voice message for Letitia Buitrago Ph. requesting a CB to confirm patient's bedside, functional assessment is scheduled for ThursdayMay 19 from [id number] JW Original Note: DCP Functional Assess SW called [facility] Tory Stack and she states she is no longer the assigned [facility] CARES Functional Assurance Senior since pt was accepted into the Guardianship Tie In Hand Program. Tory states the newly assigned [facility] worker is: Letitia Buitrago??(she/her) / Region 2 Guardianship Manager Copy [facility] and Community Services / Aging and Long-Term Support Administration [facility] Department of Social and Health Services Ph. /??F.? ?/ [email or web address] JEOVANY called Letitia Buitrago along with Berta Minor and Juliana Robbins from [facility] LTC placement team. Letitia emailed back stating currently she has the pt scheduled for bedside assessment on May 19 [id number]. Letitia requested the last 2 months of clinicals be faxed and SW answered a few questions regarding the pt towards her assessment to determine the daily rate. JEOVANY faxed these documents to [phone]. JEOVANY updated CM Director Ashley as well as including appointed Guardian Mark Araujo. CHARITY Bradshaw
--- NOTE | 2023-05-11 15:33 | PM.PN.1 ---
Subjective Subjective Date Patient Seen: 05/11/23 Time Patient Seen: 08:00 Interval history: No new complaints. Exam Vital Signs (past 8 hours): Oxygen Delivery Method Room Air Oxygen Flow Rate 0 Narrative Exam Narrative: GEN: no acute distress Objective Labs 05/05/23 05:02 05/05/23 05:02 [facility] Medical History Cerebrovascular accident Chronic GERD Dementia Hyperlipidemia Hypertension Social History household members: children Smoking Status: Former smoker alcohol intake: current Assessment & Plan Assessment & Plan narrative: 1. Debilitation, with placement pending. 2. Remote stroke with left hemiparesis, present on admission and stable. 3 Insomnia - Continue Ambien. Trial of Seroquel on 05/02/23. 4. Itching of LE's - Kenalog cream BID PRN Plan: Placement is pending. Quality VTE Deep Vein Thrombosis/Pulmonary Embolism Present on Admission: No
[2023-05-11] MEDS: SERTRALINE 50 MG TABLET 100 MG PO (22:07)
[2023-05-11] MEDS: ZOLPIDEM 5 MG TABLET 10 MG PO (22:07)
--- NOTE | 2023-05-11 22:22 | PC.NURSE ---
Patient received bed bath & linen change per GRINDING ROOM SUPERVISOR; blanchable redness in the coccyx & redness/itchiness in groin area, barrier cream applied. Patient agreed to sit up for a bit this evening, independently wheeled himself in the hallway w/ supervision, tolerated well. Required heavy assistance (2 PA w/ gait belt) when transferring to wheelchair and back to bed.
[2023-05-11 23:00] VITALS: BP 117/66; PULSE 53
[2023-05-12] MEDS: HYDROCODONE/ACET 10/325 TABLET 1 TAB PO ×2 (04:49→23:28)
[2023-05-12] MEDS: LEVOTHYROXINE 75 MCG TABLET PO (05:57)
[2023-05-12] MEDS: diphenhydrAMINE 25 MG TABLET PO (05:57)
[2023-05-12] MEDS: droNABinol 2.5 MG CAPSULE PO ×2 (06:01→15:48)
[2023-05-12] MEDS: CLOPIDOGREL 75 MG TABLET PO (08:47)
[2023-05-12] MEDS: GABAPENTIN 100 MG CAPSULE PO ×2 (08:47→21:02)
[2023-05-12] MEDS: METOPROLOL IR 25 MG TABLET 12.5 MG PO ×2 (08:47→21:02)
[2023-05-12 09:38] VITALS: BP 156/70; PULSE 64; RESP 16; TEMP 36.6; O2SAT 98
--- NOTE | 2023-05-12 15:53 | PM.PN.1 ---
Subjective Subjective Date Patient Seen: 05/12/23 Time Patient Seen: 08:00 Interval history: No new concerns. Exam Vital Signs (past 8 hours): - 05/12/23 09:38 Temperature 97.8 F Pulse Rate 64 Respiratory Rate 16 Blood Pressure 156/70 H Pulse Oximetry 98 Oxygen Flow Rate 0 Oxygen Delivery Method Room Air Oxygen Flow Rate 0 Narrative Exam Narrative: GEN: no acute distress Objective Labs 05/05/23 05:02 05/05/23 05:02 [facility] Medical History Cerebrovascular accident Chronic GERD Dementia Hyperlipidemia Hypertension Social History household members: children Smoking Status: Former smoker alcohol intake: current Assessment & Plan Assessment & Plan narrative: 1. Debilitation, with placement pending. 2. Remote stroke with left hemiparesis, present on admission and stable. 3 Insomnia - Continue Ambien. Trial of Seroquel on 05/02/23. 4. Itching of LE's - Kenalog cream BID PRN Plan: Placement is pending. Quality VTE Deep Vein Thrombosis/Pulmonary Embolism Present on Admission: No
--- NOTE | 2023-05-12 19:27 | PC.NURSE ---
a/o, voices needs. 1pa bed mobility/ADL assistance. urinal independantly. agreeable to get OOB at end of shift. 2pa transfer w/ gait belt to do rosita-care and pull up britches. self-propel w/c up and down hallway independantly, talking w/ staff. 2pa assist back to bed after 30 min. bed alarm on, call light w/in reach.
--- NOTE | 2023-05-12 20:07 | PC.NURSE ---
Son Rosalino and granddaughter Verona visiting Patient. Door open patient appears to be happy to have visitors.
[2023-05-12] MEDS: QUETIAPINE 25 MG TABLET PO (21:02)
[2023-05-12] MEDS: SERTRALINE 50 MG TABLET 100 MG PO (21:02)
[2023-05-12] MEDS: ZOLPIDEM 5 MG TABLET 10 MG PO (21:02)
[2023-05-13] MEDS: diphenhydrAMINE 25 MG TABLET PO ×2 (00:33→22:02)
[2023-05-13] MEDS: LEVOTHYROXINE 75 MCG TABLET PO (06:24)
[2023-05-13] MEDS: droNABinol 2.5 MG CAPSULE PO (06:24)
[2023-05-13] MEDS: CLOPIDOGREL 75 MG TABLET PO (11:24)
[2023-05-13] MEDS: GABAPENTIN 100 MG CAPSULE PO ×2 (11:24→22:02)
[2023-05-13] MEDS: METOPROLOL IR 25 MG TABLET 12.5 MG PO ×2 (11:24→22:03)
[2023-05-13 15:00] VITALS: BP 116/70; PULSE 55; RESP 16; TEMP 36.7; O2SAT 96
--- NOTE | 2023-05-13 15:35 | PM.PN.1 ---
Subjective Subjective Date Patient Seen: 05/13/23 Interval history: No new concerns Exam Vital Signs (past 8 hours): - 05/13/23 15:00 Temperature 98.0 F Pulse Rate 55 L Respiratory Rate 16 Blood Pressure 116/70 Pulse Oximetry 96 Oxygen Flow Rate 0 Oxygen Delivery Method Room Air Oxygen Flow Rate 0 Narrative Exam Narrative: GEN: no acute distress Objective Labs 05/05/23 05:02 05/05/23 05:02 [facility] Medical History Cerebrovascular accident Chronic GERD Dementia Hyperlipidemia Hypertension Social History household members: children Smoking Status: Former smoker alcohol intake: current Assessment & Plan Assessment & Plan narrative: 1. Debilitation, with placement pending. 2. Remote stroke with left hemiparesis, present on admission and stable. 3 Insomnia - Continue Ambien. Trial of Seroquel on 05/02/23. 4. Itching of LE's - Kenalog cream BID PRN Plan: Placement is pending. Quality VTE Deep Vein Thrombosis/Pulmonary Embolism Present on Admission: No
[2023-05-13 20:58] VITALS: BP 120/77; PULSE 60; RESP 17; TEMP 36.8; O2SAT 96
[2023-05-13] MEDS: SERTRALINE 50 MG TABLET 100 MG PO (22:02)
[2023-05-13] MEDS: ZOLPIDEM 5 MG TABLET 10 MG PO (22:02)
[2023-05-13] MEDS: QUETIAPINE 25 MG TABLET PO (22:02)
[2023-05-14] MEDS: LEVOTHYROXINE 75 MCG TABLET PO (06:53)
[2023-05-14] MEDS: droNABinol 2.5 MG CAPSULE PO ×2 (06:53→15:35)
--- NOTE | 2023-05-14 09:23 | PM.PN.1 ---
Subjective Subjective Interval history: No new concerns Exam Vital Signs (past 8 hours): Oxygen Delivery Method Room Air Oxygen Flow Rate 0 Narrative Exam Narrative: GEN: no acute distress Objective Labs 05/05/23 05:02 05/05/23 05:02 [facility] Medical History Cerebrovascular accident Chronic GERD Dementia Hyperlipidemia Hypertension Social History household members: children Smoking Status: Former smoker alcohol intake: current Assessment & Plan Assessment & Plan narrative: 1. Debilitation, with placement pending. 2. Remote stroke with left hemiparesis, present on admission and stable. 3 Insomnia - Continue Ambien. Trial of Seroquel on 05/02/23. 4. Itching of LE's - Kenalog cream BID PRN Plan: Placement is pending. Quality VTE Deep Vein Thrombosis/Pulmonary Embolism Present on Admission: No
[2023-05-14 11:20] VITALS: TEMP 36.4
[2023-05-14] MEDS: GABAPENTIN 100 MG CAPSULE PO ×2 (11:20→21:45)
[2023-05-14] MEDS: HYDROCODONE/ACET 10/325 TABLET 1 TAB PO ×2 (11:20→15:35)
[2023-05-14] MEDS: CLOPIDOGREL 75 MG TABLET PO (11:20)
[2023-05-14 11:23] VITALS: BP 134/69; PULSE 55; TEMP 36.4; O2SAT 97
[2023-05-14] MEDS: TRIAMCINOLONE 0.1% CREAM 15 GM 1 APPLIC TOP (17:09)
[2023-05-14] MEDS: SERTRALINE 50 MG TABLET 100 MG PO (21:44)
[2023-05-14] MEDS: METOPROLOL IR 25 MG TABLET 12.5 MG PO (21:44)
[2023-05-14] MEDS: diphenhydrAMINE 25 MG TABLET PO (21:46)
[2023-05-14] MEDS: ZOLPIDEM 5 MG TABLET 10 MG PO (21:46)
[2023-05-14] MEDS: QUETIAPINE 25 MG TABLET PO (21:50)
[2023-05-15] MEDS: droNABinol 2.5 MG CAPSULE PO ×2 (06:50→15:06)
[2023-05-15] MEDS: LEVOTHYROXINE 75 MCG TABLET PO (06:50)
[2023-05-15] MEDS: HYDROCODONE/ACET 10/325 TABLET 1 TAB PO ×2 (10:43→21:28)
[2023-05-15] MEDS: GABAPENTIN 100 MG CAPSULE PO ×2 (10:43→21:29)
[2023-05-15] MEDS: CLOPIDOGREL 75 MG TABLET PO (10:43)
[2023-05-15 10:44] VITALS: BP 116/60; PULSE 53; RESP 16; TEMP 36.8; O2SAT 98
--- NOTE | 2023-05-15 13:07 | CM.DPNOTE ---
Second VM left today for Letitia Buitrago Ph. today, awaiting CB to confirm patient's functional assessment 05/19/23 from [id number] JW
--- NOTE | 2023-05-15 14:06 | PM.PN.1 ---
Subjective Subjective Interval history: No complaints. Exam Vital Signs (past 8 hours): - 05/15/23 10:44 Temperature 98.3 F Pulse Rate 53 L Respiratory Rate 16 Blood Pressure 116/60 Pulse Oximetry 98 Oxygen Flow Rate 0 Oxygen Delivery Method Room Air Oxygen Flow Rate 0 Narrative Exam Narrative: GEN: no acute distress Objective Labs 05/05/23 05:02 05/05/23 05:02 [facility] Medical History Cerebrovascular accident Chronic GERD Dementia Hyperlipidemia Hypertension Social History household members: children Smoking Status: Former smoker alcohol intake: current Assessment & Plan Assessment & Plan narrative: 1. Debilitation, with placement pending. 2. Remote stroke with left hemiparesis, present on admission and stable. 3 Insomnia - Continue Ambien. Trial of Seroquel on 05/02/23. 4. Itching of LE's - Kenalog cream BID PRN Plan: Placement is pending. Quality VTE Deep Vein Thrombosis/Pulmonary Embolism Present on Admission: No
[2023-05-15] MEDS: METOPROLOL IR 25 MG TABLET 12.5 MG PO (21:27)
[2023-05-15] MEDS: SERTRALINE 50 MG TABLET 100 MG PO (21:27)
[2023-05-15] MEDS: diphenhydrAMINE 25 MG TABLET PO (21:28)
[2023-05-15] MEDS: QUETIAPINE 25 MG TABLET PO (21:28)
[2023-05-15] MEDS: ZOLPIDEM 5 MG TABLET 10 MG PO (21:29)
[2023-05-16] MEDS: LEVOTHYROXINE 75 MCG TABLET PO (05:34)
[2023-05-16] MEDS: HYDROCODONE/ACET 10/325 TABLET 1 TAB PO ×3 (05:34→17:25)
[2023-05-16] MEDS: diphenhydrAMINE 25 MG TABLET PO (05:34)
[2023-05-16] MEDS: droNABinol 2.5 MG CAPSULE PO ×2 (07:31→17:25)
[2023-05-16] MEDS: TRIAMCINOLONE 0.1% CREAM 15 GM 1 APPLIC TOP (07:34)
[2023-05-16] MEDS: GABAPENTIN 100 MG CAPSULE PO ×2 (09:40→21:51)
[2023-05-16] MEDS: CLOPIDOGREL 75 MG TABLET PO (09:40)
[2023-05-16 09:41] VITALS: BP 116/53; PULSE 54; RESP 16; TEMP 36.9; O2SAT 95
--- NOTE | 2023-05-16 10:36 | PM.PN.1 ---
Subjective Subjective Interval history: No interval change. No voiced complaints. Exam Vital Signs (past 8 hours): - 05/16/23 09:41 Temperature 98.5 F Pulse Rate 54 L Respiratory Rate 16 Blood Pressure 116/53 L Pulse Oximetry 95 Oxygen Flow Rate 0 Oxygen Delivery Method Room Air Oxygen Flow Rate 0 Narrative Exam Narrative: General: in no acute distress Objective Labs 05/05/23 05:02 05/05/23 05:02 [facility] Medical History Cerebrovascular accident Chronic GERD Dementia Hyperlipidemia Hypertension Social History household members: children Smoking Status: Former smoker alcohol intake: current Assessment & Plan Assessment & Plan narrative: 1. Debilitation, with placement pending. 2. Remote stroke with left divya-paresis, present on admission and stable. 3 Insomnia - Continue Ambien. Trial of Seroquel started on 05/02/23. 4. Itching of LE's - Kenalog cream BID PRN Plan: Placement is pending. Quality VTE Deep Vein Thrombosis/Pulmonary Embolism Present on Admission: No
--- NOTE | 2023-05-16 16:48 | PC.NURSE ---
Pt's two sons, Sudhakar and Juan Manuel, and grandson visited pt today. This RN introduced herself and asked if pt or family members needed anything, and collectively they stated they were fine. Family only stayed for about 45 mins. Pt looked happy and relaxed after they left. Pt currently taking a nap, resting comfortably.
[2023-05-16] MEDS: METOPROLOL IR 25 MG TABLET 12.5 MG PO (21:51)
[2023-05-16] MEDS: ZOLPIDEM 5 MG TABLET 10 MG PO (21:52)
[2023-05-16] MEDS: QUETIAPINE 25 MG TABLET PO (21:52)
[2023-05-16] MEDS: SERTRALINE 50 MG TABLET 100 MG PO (21:52)
[2023-05-17] MEDS: LEVOTHYROXINE 75 MCG TABLET PO (06:57)
[2023-05-17] MEDS: droNABinol 2.5 MG CAPSULE PO ×2 (06:59→16:36)
[2023-05-17 08:36] VITALS: BP 110/65; PULSE 61; RESP 17; TEMP 36.6; O2SAT 97
[2023-05-17] MEDS: GABAPENTIN 100 MG CAPSULE PO ×2 (10:10→20:26)
[2023-05-17] MEDS: METOPROLOL IR 25 MG TABLET 12.5 MG PO ×2 (10:11→20:26)
[2023-05-17] MEDS: HYDROCODONE/ACET 10/325 TABLET 1 TAB PO ×2 (10:19→20:25)
--- NOTE | 2023-05-17 13:52 | P.PN_ITS ---
Subjective Subjective Date Patient Seen: 05/17/23 Interval history: No patient or nursing concerns. Exam Vital Signs (past 8 hours): - 05/17/23 08:36 Temperature 97.8 F Pulse Rate 61 Respiratory Rate 17 Blood Pressure 110/65 Pulse Oximetry 97 Oxygen Flow Rate 0 Oxygen Delivery Method Room Air Oxygen Flow Rate 0 Narrative Exam Narrative: Exam Narrative: General: in no acute distress Objective Labs 05/05/23 05:02 05/05/23 05:02 [facility] Medical History Cerebrovascular accident Chronic GERD Dementia Hyperlipidemia Hypertension Social History household members: children Smoking Status: Former smoker alcohol intake: current Assessment & Plan Assessment & Plan narrative: 1. Debilitation, with placement pending. 2. Remote stroke with left divya-paresis, present on admission and stable. 3 Insomnia - Continue Ambien. Trial of Seroquel started on 05/02/23. 4. Itching of LE's - Kenalog cream BID PRN Plan: Placement is pending. Quality VTE Deep Vein Thrombosis/Pulmonary Embolism Present on Admission: No
--- NOTE | 2023-05-17 14:56 | PC.NURSE ---
Pt slept for most of shift, withdrawn when awake, miming answers where possible and giving 1-word answers to direct questions when not. Verbalized to pt that he seemed unhappy today and he nodded, but when asked if anything could be done to help him or improve his day, shook his head. Did perk up slightly when waving to staff in hallway. Ate breakfast and accepted medications. Declined to get up to chair. Warm blankets provided, pt mouthed Thank you and returned to sleep.
[2023-05-17 20:23] VITALS: BP 114/62; PULSE 61; RESP 16; TEMP 36.4; O2SAT 96
[2023-05-17] MEDS: SERTRALINE 50 MG TABLET 100 MG PO (20:26)
[2023-05-17] MEDS: ZOLPIDEM 5 MG TABLET 10 MG PO (20:26)
[2023-05-17] MEDS: BISACODYL 5 MG TABLET PO (21:33)
[2023-05-18] MEDS: LEVOTHYROXINE 75 MCG TABLET PO (06:48)
[2023-05-18] MEDS: droNABinol 2.5 MG CAPSULE PO ×2 (06:48→17:52)
--- NOTE | 2023-05-18 07:01 | PC.NURSE ---
Pt has been less talkative tonight. abdomen is distended with active bowel tones. pt requested extra bowel meds, dulcolax po given. Pt had a large bowel movement and was incontinent of urine and stool. Pt needed full bed changed and not cooperating with care and needed his bottom clean up. pt was offer to get out of bed tonight, pt declined.
[2023-05-18 07:30] VITALS: BP 125/65; PULSE 60; RESP 16; TEMP 36.9; O2SAT 100
[2023-05-18] MEDS: HYDROCODONE/ACET 10/325 TABLET 1 TAB PO ×2 (08:05→21:21)
[2023-05-18] MEDS: METOPROLOL IR 25 MG TABLET 12.5 MG PO ×2 (08:05→21:15)
[2023-05-18] MEDS: GABAPENTIN 100 MG CAPSULE PO ×2 (08:05→21:15)
--- NOTE | 2023-05-18 11:31 | PM.PN.1 ---
Subjective Subjective Date Patient Seen: 05/18/23 Interval history: Patient comfortable, no complaints from patient or nursing. Exam Vital Signs (past 8 hours): - 05/18/23 07:30 Temperature 98.5 F Pulse Rate 60 Respiratory Rate 16 Blood Pressure 125/65 Pulse Oximetry 100 Oxygen Flow Rate 0 Oxygen Delivery Method Room Air Oxygen Flow Rate 0 Narrative Exam Narrative: General: in no acute distress, resting comfortably in bed watching TV. Objective Labs 05/05/23 05:02 05/05/23 05:02 [facility] Medical History Cerebrovascular accident Chronic GERD Dementia Hyperlipidemia Hypertension Social History household members: children Smoking Status: Former smoker alcohol intake: current Assessment & Plan Assessment & Plan narrative: 1. Debilitation, with placement pending. 2. Remote stroke with left divya-paresis, present on admission and stable. 3 Insomnia - Continue Ambien. Trial of Seroquel started on 05/02/23. 4. Itching of LE's - Kenalog cream BID PRN Plan: Placement is pending. Quality VTE Deep Vein Thrombosis/Pulmonary Embolism Present on Admission: No
--- NOTE | 2023-05-18 14:24 | CM.DPC ---
[facility] CARES Functional Assessment SW emailed and called both assigned HCS worker Letitia Watkinsuse and her Anthropology And Archeology Instructor Juliana Robbins and left voicemails and received response confirming that Letitia will complete bedside functional assessment with the patient tomorrow 05/19/23 at 1300. CHARITY Bradshaw
[2023-05-18] MEDS: ZOLPIDEM 5 MG TABLET 10 MG PO (21:14)
[2023-05-18] MEDS: diphenhydrAMINE 25 MG TABLET PO (21:15)
[2023-05-18] MEDS: SERTRALINE 50 MG TABLET 100 MG PO (21:15)
[2023-05-19] MEDS: LEVOTHYROXINE 75 MCG TABLET PO (06:34)
[2023-05-19] MEDS: droNABinol 2.5 MG CAPSULE PO (06:34)
[2023-05-19 08:00] VITALS: BP 120/68; PULSE 50; RESP 16; TEMP 36.1; O2SAT 98
[2023-05-19] MEDS: GABAPENTIN 100 MG CAPSULE PO ×2 (08:56→20:22)
[2023-05-19] MEDS: METOPROLOL IR 25 MG TABLET 12.5 MG PO (08:56)
[2023-05-19] MEDS: HYDROCODONE/ACET 10/325 TABLET 1 TAB PO ×2 (08:57→20:24)
--- NOTE | 2023-05-19 14:10 | CM.DPNOTE ---
DCP Note ACID CHANGER reviewed EMR. ACID CHANGER spoke with HCS worker Letitia post functional assessment at approximately 1400 outside of room in hallway. Letitia reports she has all she needs for her assessment. Letitia reports she will complete her paperwork and send it to our team late this week to early next week. CM team will continue to follow closely. CHARITY Porter
--- NOTE | 2023-05-19 18:38 | P.PN_ITS ---
Subjective Subjective Date Patient Seen: 05/18/23 Interval history: Patient comfortable, no complaints from patient or nursing. Exam Vital Signs (past 8 hours): Oxygen Delivery Method Room Air Oxygen Flow Rate 0 Narrative Exam Narrative: General: in no acute distress, resting comfortably in bed watching TV. Objective Labs 05/05/23 05:02 05/05/23 05:02 [facility] Medical History Cerebrovascular accident Chronic GERD Dementia Hyperlipidemia Hypertension Social History household members: children Smoking Status: Former smoker alcohol intake: current Assessment & Plan Assessment & Plan narrative: 1. Debilitation, with placement pending. 2. Remote stroke with left divya-paresis, present on admission and stable. 3 Insomnia - Continue Ambien. Trial of Seroquel started on 05/02/23. 4. Itching of LE's - Kenalog cream BID PRN Plan: Placement is pending. Quality VTE Deep Vein Thrombosis/Pulmonary Embolism Present on Admission: No
[2023-05-19 20:20] VITALS: BP 124/58; PULSE 51; O2SAT 94
[2023-05-19] MEDS: SERTRALINE 50 MG TABLET 100 MG PO (20:21)
[2023-05-19] MEDS: QUETIAPINE 25 MG TABLET PO (20:22)
[2023-05-19] MEDS: diphenhydrAMINE 25 MG TABLET PO (20:22)
--- NOTE | 2023-05-20 06:07 | PC.NURSE ---
Pt had bowel movement in brief, pt stating still had to go more. Offered and recommended pt use bedside commode, pt refused to wipe self or use commode.
[2023-05-20] MEDS: droNABinol 2.5 MG CAPSULE PO (15:10)
[2023-05-20 17:02] VITALS: BP 126/54; PULSE 52; RESP 18; TEMP 36.6; O2SAT 95
[2023-05-20] MEDS: METOPROLOL IR 25 MG TABLET 12.5 MG PO (20:32)
[2023-05-20] MEDS: QUETIAPINE 25 MG TABLET PO (20:32)
[2023-05-20] MEDS: ZOLPIDEM 5 MG TABLET 10 MG PO (20:32)
[2023-05-20] MEDS: SERTRALINE 50 MG TABLET 100 MG PO (20:33)
[2023-05-20] MEDS: diphenhydrAMINE 25 MG TABLET PO (20:33)
[2023-05-20] MEDS: HYDROCODONE/ACET 10/325 TABLET 1 TAB PO (20:33)
[2023-05-20] MEDS: GABAPENTIN 100 MG CAPSULE PO (20:33)
[2023-05-21] MEDS: HYDROCODONE/ACET 10/325 TABLET 1 TAB PO ×2 (05:52→20:35)
[2023-05-21] MEDS: LEVOTHYROXINE 75 MCG TABLET PO (05:52)
[2023-05-21] MEDS: droNABinol 2.5 MG CAPSULE PO ×2 (05:52→16:25)
[2023-05-21 08:00] VITALS: BP 139/77; PULSE 55; RESP 16; TEMP 37.4; O2SAT 97
[2023-05-21] MEDS: GABAPENTIN 100 MG CAPSULE PO ×2 (09:20→20:37)
[2023-05-21] MEDS: METOPROLOL IR 25 MG TABLET 12.5 MG PO ×2 (09:21→20:37)
--- NOTE | 2023-05-21 11:30 | PM.PN.1 ---
Subjective Subjective Interval history: No changes. Exam Vital Signs (past 8 hours): - 05/21/23 08:00 Temperature 99.3 F Pulse Rate 55 L Respiratory Rate 16 Blood Pressure 139/77 Pulse Oximetry 97 Oxygen Flow Rate 0 Oxygen Delivery Method Room Air Oxygen Flow Rate 0 Narrative Exam Narrative: General: in no acute distress, resting comfortably in bed watching TV. Objective Labs 05/05/23 05:02 05/05/23 05:02 [facility] Medical History Cerebrovascular accident Chronic GERD Dementia Hyperlipidemia Hypertension Social History household members: children Smoking Status: Former smoker alcohol intake: current Assessment & Plan Assessment & Plan narrative: 1. Unstable discharge for debilitated elderly male with multiple medical comorbidities -Patient remains hospitalized pending appropriate placement.? Discharge planning continues to work with the state regarding long-term care and Medicaid eligibility. 2. History of stroke with left-sided weakness, POA and stable. -Monitor. 3. Coronary artery disease (PCI), POA and stable. ?? -Continue metoprolol. Monitor. 4. Hypertension, POA and stable. -Well controlled on metoprolol. 5. ?Depression and insomnia, POA and stable. -Continue Zoloft and ambien PRN 6. Poor appetite, POA and stable. -had previously been on remeron and marinol -now just on marinol due to remoron causing lethargy 6. Hypothyroidism, POA and stable. -Last labs performed March 07 revealed a TSH 0.02 with a free T4 of 1.73.? Currently, TSH is up to 0.15 and free T4 is 1.49.? Although his free T4 is within normal range, he likely could tolerate it a little bit lower.? Given his persistent low TSH, trailling decrease in his levothyroxine to 125 mcg. Repeating TSH and T4 labs. -repeat TSH on 04/21 is 0.058. Lowered synthroid again to 75mcg daily. Recheck TSH in 4-6 weeks. 7. LE rash with itching - unclear cause - benadryl po PRN and topical hydrocortisone to bilat shins/calves Time Spent With Patient Time with patient: less than 30 minutes Quality VTE Deep Vein Thrombosis/Pulmonary Embolism Present on Admission: No
[2023-05-21] MEDS: SERTRALINE 50 MG TABLET 100 MG PO (20:37)
[2023-05-21] MEDS: ZOLPIDEM 5 MG TABLET 10 MG PO (20:37)
[2023-05-22] MEDS: diphenhydrAMINE 25 MG TABLET PO (01:46)
[2023-05-22] MEDS: HYDROCODONE/ACET 10/325 TABLET 1 TAB PO ×2 (01:46→21:09)
[2023-05-22] MEDS: LEVOTHYROXINE 75 MCG TABLET PO (06:40)
[2023-05-22] MEDS: droNABinol 2.5 MG CAPSULE PO ×2 (06:40→15:15)
[2023-05-22 12:00] VITALS: BP 117/55; PULSE 54; RESP 16; TEMP 36.8; O2SAT 97
[2023-05-22] MEDS: CLOPIDOGREL 75 MG TABLET PO (12:40)
[2023-05-22] MEDS: GABAPENTIN 100 MG CAPSULE PO ×2 (12:40→20:53)
--- NOTE | 2023-05-22 13:30 | P.PN_ITS ---
Subjective Subjective Interval history: No changes. Exam Vital Signs (past 8 hours): Oxygen Delivery Method Room Air Oxygen Flow Rate 0 Narrative Exam Narrative: General: in no acute distress, resting comfortably in bed watching TV. Objective Labs 05/05/23 05:02 05/05/23 05:02 [facility] Medical History Cerebrovascular accident Chronic GERD Dementia Hyperlipidemia Hypertension Social History household members: children Smoking Status: Former smoker alcohol intake: current Assessment & Plan Assessment & Plan narrative: 1. Unstable discharge for debilitated elderly male with multiple medical comorbidities -Patient remains hospitalized pending appropriate placement.? Discharge planning continues to work with the state regarding long-term care and Medicaid eligibility. 2. History of stroke with left-sided weakness, POA and stable. -Monitor. 3. Coronary artery disease (PCI), POA and stable. ?? -Continue metoprolol. Monitor. 4. Hypertension, POA and stable. -Well controlled on metoprolol. 5. ?Depression and insomnia, POA and stable. -Continue Zoloft and ambien PRN 6. Poor appetite, POA and stable. -had previously been on remeron and marinol -now just on marinol due to remoron causing lethargy 6. Hypothyroidism, POA and stable. -Last labs performed March 07 revealed a TSH 0.02 with a free T4 of 1.73.? Currently, TSH is up to 0.15 and free T4 is 1.49.? Although his free T4 is within normal range, he likely could tolerate it a little bit lower.? Given his persistent low TSH, trailling decrease in his levothyroxine to 125 mcg. Repeating TSH and T4 labs. -repeat TSH on 04/21 is 0.058. Lowered synthroid again to 75mcg daily. Recheck TSH in 4-6 weeks. 7. LE rash with itching - unclear cause - benadryl po PRN and topical hydrocortisone to bilat shins/calves Time Spent With Patient Time with patient: less than 30 minutes Quality VTE Deep Vein Thrombosis/Pulmonary Embolism Present on Admission: No
[2023-05-22] MEDS: SERTRALINE 50 MG TABLET 100 MG PO (20:53)
[2023-05-22] MEDS: QUETIAPINE 25 MG TABLET PO (21:09)
[2023-05-22] MEDS: ZOLPIDEM 5 MG TABLET 10 MG PO (21:09)
--- NOTE | 2023-05-22 23:26 | PC.NURSE ---
Patient is alert and oriented except did not know day of month or day of week. Breath sounds coarse in bilateral UL which cleared after coughing. HRR but bradycardic with rate of 52 bpm. Denied nausea. BT present and had incontinent BM earlier this shift. Is using urinal in bed but sometimes either incontinent or spills urinal; denied dysuria. Is able to move himself in bed but tends to lie mostly on back and declines to be repositioned to stay off back; no redness noted on coccyx/sacrum or other pressure points. Gait not assessed at this time. Did complain of 8/10 back pain and was medicated with vicodin and pain reassessed at 12/20. Fall risk score is high and bed alarm is activated. When PCT provided care for patient he was using profanity toward her and then after would put on his call light but refused to respond to her when she asked what he needed. Spoke to patient about his behavior and told him that profanity would not be tolerated. Also talked with him about importance of being respectful toward all staff; he apologized for his behavior.
[2023-05-23] MEDS: LEVOTHYROXINE 75 MCG TABLET PO (06:30)
[2023-05-23] MEDS: droNABinol 2.5 MG CAPSULE PO ×2 (06:30→14:46)
[2023-05-23] MEDS: HYDROCODONE/ACET 10/325 TABLET 1 TAB PO ×3 (10:08→21:08)
[2023-05-23] MEDS: GABAPENTIN 100 MG CAPSULE PO ×2 (10:09→20:45)
[2023-05-23] MEDS: CLOPIDOGREL 75 MG TABLET PO (10:09)
--- NOTE | 2023-05-23 10:18 | PM.PN.1 ---
Subjective Subjective Interval history: 73-year-old male with previous stroke, coronary artery disease, hypothyroidism, depression with vegetative symptoms who is presently hospital day #160 admitted secondary to chronic debility and no safe discharge. Patient tells me his son 3 days prior to the patient's birthday. He states it was an unexpected and it was related to his son's diabetes. He had not seen him in the recent months prior to his . He admits to feeling depressed, but does not wish to adjust his medications. Exam Vital Signs (past 8 hours): Oxygen Delivery Method Room Air Oxygen Flow Rate 0 Narrative Exam Narrative: GEN: Alert and oriented x 3, flat affect, NAD HEENT:NC, Face symmetric CHEST: Respiratory excursions symmetric, CTAB CV: RRR, no M/R/G ABD: Soft, NT/ND, BT present in all 4 quadrants, no organomegaly or masses EXTR: warm, well perfused, no C/C/E SKIN: warm and dry, no rash NEURO: Alert and oriented x 3, nonfocal MOOD: Flat affect, depressed appearing Objective Labs 05/05/23 05:02 05/05/23 05:02 [facility] Medical History Cerebrovascular accident Chronic GERD Dementia Hyperlipidemia Hypertension Social History household members: children Smoking Status: Former smoker alcohol intake: current Assessment & Plan Assessment & Plan narrative: 1. Chronic debility Stable. Await appropriate and safe discharge. 2. History of stroke with left-sided weakness Continue Plavix. At his baseline currently. 3. Coronary artery disease Continue Plavix and metoprolol. He is asymptomatic. 4. Hypothyroidism He is presently on 75 mcg daily. He was on 150 mcg daily on admission. His TSH has continued to be suppressed. Normal free T4. Will repeat labs today. 5. Depression He does appear more depressed, especially in light of his son's recent unexpected . He does not wish to adjust his medications. Continue sertraline and dronabinol. He declines meeting with doll surgeon Code status DNR Prophy No chemical prophylaxis d/t previous pain from site. Disposition Guardian is in place. He is now awaiting the [facility] determination of a daily rate for adult family home placement. It is anticipated this could come back next week. Quality VTE Deep Vein Thrombosis/Pulmonary Embolism Present on Admission: No
[2023-05-23 11:24] LABS: TSH w/ Reflex to FT4 1.53 uIU/mL (0.47-4.68)
[2023-05-23 20:34] VITALS: BP 129/62; PULSE 60; RESP 16; TEMP 36.5; O2SAT 98
[2023-05-23] MEDS: SERTRALINE 50 MG TABLET 100 MG PO (20:45)
[2023-05-23] MEDS: METOPROLOL IR 25 MG TABLET 12.5 MG PO (20:48)
[2023-05-23] MEDS: ZOLPIDEM 5 MG TABLET 10 MG PO (20:58)
[2023-05-23] MEDS: QUETIAPINE 25 MG TABLET PO (20:58)
--- NOTE | 2023-05-24 00:41 | PC.NURSE ---
Patient is alert and oriented except does not know day of month or day of week. Breath sounds CTA with RA sat of 98%. HRR. Denied nausea. BT present and abdomen is soft; incontinent of stool on previous shift. Voiding per urinal and denied dysuria. Is able to turn himself but prefers to lie on back and declines offers to place pillows for different position; no pressure injuries noted. Complains of chronic back pain and was medicated with vicodin earlier with pain decreasing and tolerable. Medicated also with both ambien and seroquel to help him sleep but he is still awake watching TV. Fall risk score is high and bed alarm is activated.
[2023-05-24] MEDS: LEVOTHYROXINE 75 MCG TABLET PO (06:29)
[2023-05-24] MEDS: droNABinol 2.5 MG CAPSULE PO ×2 (06:30→15:39)
[2023-05-24] MEDS: GABAPENTIN 100 MG CAPSULE PO ×2 (09:13→20:22)
[2023-05-24] MEDS: METOPROLOL IR 25 MG TABLET 12.5 MG PO ×2 (09:13→20:22)
[2023-05-24] MEDS: CLOPIDOGREL 75 MG TABLET PO (09:13)
[2023-05-24 11:55] VITALS: BP 114/56; PULSE 57; RESP 16; TEMP 36.5; O2SAT 96
--- NOTE | 2023-05-24 15:33 | P.PN_ITS ---
Subjective Subjective Interval history: 73-year-old male with previous stroke, coronary artery disease, hypothyroidism, depression with vegetative symptoms who is presently hospital day #161 admitted secondary to chronic debility and no safe discharge. He continues to admit to depression but does not wish to adjust his antidepressants. He denies any other complaint. He is less receptive to having conversation with me this weekend compared with prior visits. He reports he is moving his bowels regularly. Exam Vital Signs (past 8 hours): - 05/24/23 11:55 Temperature 97.7 F Pulse Rate 57 L Respiratory Rate 16 Blood Pressure 114/56 L Pulse Oximetry 96 Oxygen Flow Rate 0 Oxygen Delivery Method Room Air Oxygen Flow Rate 0 Narrative Exam Narrative: GEN: Alert and oriented x 3, flat affect, NAD HEENT:NC, Face symmetric CHEST: Respiratory excursions symmetric, CTAB CV: RRR, no M/R/G ABD: Soft, NT/ND, BT present in all 4 quadrants, no organomegaly or masses EXTR: warm, well perfused, no C/C/E SKIN: warm and dry, no rash NEURO: Alert and oriented x 3 MOOD: Flat affect, depressed appearing Objective Labs 05/05/23 05:02 05/05/23 05:02 [facility] Medical History Cerebrovascular accident Chronic GERD Dementia Hyperlipidemia Hypertension Social History household members: children Smoking Status: Former smoker alcohol intake: current Assessment & Plan Assessment & Plan narrative: 1. Chronic debility Stable. Await appropriate and safe discharge. It is anticipated that the state will be providing a daily rate for admit for an adult family home this coming week. Once that has been obtained, final disposition can be arranged. 2. History of stroke with left-sided weakness Continue Plavix. At his baseline currently. 3. Coronary artery disease Continue Plavix and metoprolol. He is asymptomatic. 4. Hypothyroidism He is presently on 75 mcg daily. He was on 150 mcg daily on admission. His TSH has now normalized. Continue current dose of levothyroxine. 5. Depression He does appear more depressed, especially in light of his son's recent unexpected . He does not wish to adjust his medications. Continue sertraline and dronabinol. He declines meeting with medical office specialist Code status DNR Prophy No chemical prophylaxis d/t previous pain from injection site. Disposition Guardian is in place. He is now awaiting the [facility] determination of a daily rate for adult family home placement. It is anticipated this could come back next week. Quality VTE Deep Vein Thrombosis/Pulmonary Embolism Present on Admission: No
[2023-05-24] MEDS: ZOLPIDEM 5 MG TABLET 10 MG PO (20:22)
[2023-05-24] MEDS: QUETIAPINE 25 MG TABLET PO (20:22)
[2023-05-24] MEDS: SERTRALINE 50 MG TABLET 100 MG PO (20:22)
[2023-05-24 20:27] VITALS: BP 119/62; PULSE 59; RESP 16; TEMP 36.1; O2SAT 96
[2023-05-25] MEDS: LEVOTHYROXINE 75 MCG TABLET PO (06:43)
--- NOTE | 2023-05-25 07:53 | CM.DPNOTE ---
DCP Note WATER CONSERVATIONIST lvm with Letitia Buitrago (ph [phone]) to inquire about the state of the assessment and daily rate. CHARITY Porter
[2023-05-25] MEDS: METOPROLOL IR 25 MG TABLET 12.5 MG PO ×2 (09:17→21:29)
[2023-05-25] MEDS: CLOPIDOGREL 75 MG TABLET PO (09:18)
[2023-05-25] MEDS: GABAPENTIN 100 MG CAPSULE PO ×2 (09:18→21:29)
[2023-05-25] MEDS: HYDROCODONE/ACET 10/325 TABLET 1 TAB PO ×3 (10:19→22:14)
--- NOTE | 2023-05-25 11:13 | PC.NURSE ---
Patient is more anxious than usual today. He has been on his light quite a bit. Complains of left hip pain and side pain. Given vicodin for discomfort and he states that after 20 minutes its not working. Explained to patient that it can take up to 45 minutes for oral pain medication to start having an effect and he was not interested in hearing this. Ice pack given and patient is resting.
--- NOTE | 2023-05-25 13:49 | P.PN_ITS ---
Subjective Subjective Interval history: 73-year-old male with previous stroke, coronary artery disease, hypothyroidism, depression with vegetative symptoms who is presently admitted secondary to chronic debility and no safe discharge. No changes today. Exam Vital Signs (past 8 hours): Oxygen Delivery Method Room Air Oxygen Flow Rate 0 Narrative Exam Narrative: General: in no acute distress, resting comfortably in bed watching TV. Objective Labs 05/05/23 05:02 05/05/23 05:02 [facility] Medical History Cerebrovascular accident Chronic GERD Dementia Hyperlipidemia Hypertension Social History household members: children Smoking Status: Former smoker alcohol intake: current Assessment & Plan Assessment & Plan narrative: 1. Chronic debility Stable. Await appropriate and safe discharge. It is anticipated that the [facility] will be providing a daily rate for admit for an adult family home this coming week. Once that has been obtained, final disposition can be arranged. 2. History of stroke with left-sided weakness Continue Plavix. At his baseline currently. 3. Coronary artery disease Continue Plavix and metoprolol. He is asymptomatic. 4. Hypothyroidism He is presently on 75 mcg daily. He was on 150 mcg daily on admission. His TSH has now normalized. Continue current dose of levothyroxine. 5. Depression He does appear more depressed, especially in light of his son's recent unexpected . He does not wish to adjust his medications. Continue sertraline and dronabinol. He declines meeting with design engineering intern Code status DNR Prophy No chemical prophylaxis d/t previous pain from injection site. Disposition Guardian is in place. He is now awaiting the [facility] determination of a daily rate for adult family home placement. Quality VTE Deep Vein Thrombosis/Pulmonary Embolism Present on Admission: No
[2023-05-25] MEDS: droNABinol 2.5 MG CAPSULE PO (15:25)
[2023-05-25] MEDS: TRIAMCINOLONE 0.1% CREAM 15 GM 1 APPLIC TOP (16:15)
[2023-05-25 20:00] VITALS: BP 120/66; PULSE 66; RESP 16; TEMP 36.7; O2SAT 98
[2023-05-25] MEDS: QUETIAPINE 25 MG TABLET PO (21:29)
[2023-05-25] MEDS: ZOLPIDEM 5 MG TABLET 10 MG PO (21:29)
[2023-05-25] MEDS: SERTRALINE 50 MG TABLET 100 MG PO (21:29)
[2023-05-25] MEDS: diphenhydrAMINE 25 MG TABLET PO (21:29)
[2023-05-26] MEDS: HYDROCODONE/ACET 10/325 TABLET 1 TAB PO ×2 (02:33→20:13)
[2023-05-26] MEDS: diphenhydrAMINE 25 MG TABLET PO (03:01)
[2023-05-26] MEDS: TRIAMCINOLONE 0.1% CREAM 15 GM 1 APPLIC TOP (03:02)
--- NOTE | 2023-05-26 10:42 | CM.DPC ---
DCP Continued: CHARITY lvm with Letitia re: daily rate Medicaid paperwork. No response. VENDING ATTENDANT received call from Netta at [facility] inquiring about patient. VENDING ATTENDANT informed him that we're still waiting on a daily rate. CHARITY Porter
--- NOTE | 2023-05-26 14:49 | P.PN_ITS ---
Subjective Subjective Interval history: 73-year-old male with previous stroke, coronary artery disease, hypothyroidism, depression with vegetative symptoms who is presently admitted secondary to chronic debility and no safe discharge. No changes today. Exam Vital Signs (past 8 hours): Oxygen Delivery Method Room Air Oxygen Flow Rate 0 Narrative Exam Narrative: General: in no acute distress, resting comfortably in bed watching TV. Objective Labs 05/05/23 05:02 05/05/23 05:02 [facility] Medical History Cerebrovascular accident Chronic GERD Dementia Hyperlipidemia Hypertension Social History household members: children Smoking Status: Former smoker alcohol intake: current Assessment & Plan Assessment & Plan narrative: 1. Chronic debility Stable. Await appropriate and safe discharge. It is anticipated that the [facility] will be providing a daily rate for admit for an adult family home this coming week. Once that has been obtained, final disposition can be arranged. 2. History of stroke with left-sided weakness Continue Plavix. At his baseline currently. 3. Coronary artery disease Continue Plavix and metoprolol. He is asymptomatic. 4. Hypothyroidism He is presently on 75 mcg daily. He was on 150 mcg daily on admission. His TSH has now normalized. Continue current dose of levothyroxine. 5. Depression He does appear more depressed, especially in light of his son's recent unexpected . He does not wish to adjust his medications. Continue sertraline and dronabinol. He declines meeting with teacher of the hearing impaired Code status DNR Prophy No chemical prophylaxis d/t previous pain from injection site. Disposition Guardian is in place. He is now awaiting the [facility] determination of a daily rate for adult family home placement. Quality VTE Deep Vein Thrombosis/Pulmonary Embolism Present on Admission: No
[2023-05-26] MEDS: droNABinol 2.5 MG CAPSULE PO (15:19)
[2023-05-26 20:00] VITALS: BP 113/58; PULSE 57; RESP 18; TEMP 35.9; O2SAT 98
[2023-05-26] MEDS: METOPROLOL IR 25 MG TABLET 12.5 MG PO (20:13)
[2023-05-26] MEDS: GABAPENTIN 100 MG CAPSULE PO (20:14)
[2023-05-26] MEDS: SERTRALINE 50 MG TABLET 100 MG PO (20:14)
[2023-05-26] MEDS: ZOLPIDEM 5 MG TABLET 10 MG PO (20:14)
[2023-05-27] MEDS: LEVOTHYROXINE 75 MCG TABLET PO (06:56)
[2023-05-27] MEDS: droNABinol 2.5 MG CAPSULE PO ×2 (06:56→14:16)
[2023-05-27] MEDS: CLOPIDOGREL 75 MG TABLET PO (08:45)
[2023-05-27] MEDS: GABAPENTIN 100 MG CAPSULE PO ×2 (08:45→20:15)
[2023-05-27] MEDS: METOPROLOL IR 25 MG TABLET 12.5 MG PO ×2 (08:45→20:14)
[2023-05-27] MEDS: HYDROCODONE/ACET 10/325 TABLET 1 TAB PO ×2 (08:45→20:15)
--- NOTE | 2023-05-27 08:50 | PM.PN.1 ---
Subjective Subjective Interval history: 73-year-old male with previous stroke, coronary artery disease, hypothyroidism, depression with vegetative symptoms who is presently admitted secondary to chronic debility and no safe discharge. No changes today. Exam Vital Signs (past 8 hours): Oxygen Delivery Method Room Air Oxygen Flow Rate 0 Narrative Exam Narrative: General: in no acute distress, resting comfortably in bed watching TV. Objective Labs 05/05/23 05:02 05/05/23 05:02 [facility] Medical History Cerebrovascular accident Chronic GERD Dementia Hyperlipidemia Hypertension Social History household members: children Smoking Status: Former smoker alcohol intake: current Assessment & Plan Assessment & Plan narrative: 1. Chronic debility Stable. Await appropriate and safe discharge. It is anticipated that the [facility] will be providing a daily rate for admit for an adult family home fairly soon. Once that has been obtained, final disposition can be arranged. 2. History of stroke with left-sided weakness Continue Plavix. At his baseline currently. 3. Coronary artery disease Continue Plavix and metoprolol. He is asymptomatic. 4. Hypothyroidism He is presently on 75 mcg daily. He was on 150 mcg daily on admission. His TSH has now normalized. Continue current dose of levothyroxine. 5. Depression He does appear more depressed, especially in light of his son's recent unexpected . He does not wish to adjust his medications. Continue sertraline and dronabinol. He declines meeting with table operator Code status DNR Prophy No chemical prophylaxis d/t previous pain from injection site. Disposition Guardian is in place. He is now awaiting the [facility] determination of a daily rate for adult family home placement. Quality VTE Deep Vein Thrombosis/Pulmonary Embolism Present on Admission: No
--- NOTE | 2023-05-27 13:13 | PC.NURSE ---
Day shift: Calm and cooperative with care this AM. Breakfast in bed tolerated. Plan is for shower today and sitting in chair for dinner. Taking medications this AM. Remains A&Ox3. Left side weakness and difficulty ambulating due to this left side weakness. VS WNL. RA 96%. Bed alarm is on and call light in reach. Has not been impulsive. Voids in urinal.
--- NOTE | 2023-05-27 15:38 | PC.NURSE ---
Day shift: OOB to shower this afternoon. Tolerated well. 2ppl assist pivot transfer. Skin looks ok. Barrier cream applied to coccyx area. Encouraged to move in bed and Q2 turns as Pt allows. Call light in reach and bed alarm is on.
[2023-05-27] MEDS: DOCUSATE 100 MG CAPSULE PO ×2 (15:41→20:15)
[2023-05-27 16:15] VITALS: BP 119/56; PULSE 53; RESP 18; TEMP 36.6; O2SAT 96
[2023-05-27] MEDS: SERTRALINE 50 MG TABLET 100 MG PO (20:15)
[2023-05-27] MEDS: ZOLPIDEM 5 MG TABLET 10 MG PO (20:15)
[2023-05-28] MEDS: diphenhydrAMINE 25 MG TABLET PO (03:49)
[2023-05-28] MEDS: HYDROCODONE/ACET 10/325 TABLET 1 TAB PO ×3 (03:49→20:36)
--- NOTE | 2023-05-28 07:50 | PM.PN.1 ---
Subjective Subjective Interval history: 73-year-old male with previous stroke, coronary artery disease, hypothyroidism, depression with vegetative symptoms who is presently admitted secondary to chronic debility and no safe discharge. No changes today. Exam Vital Signs (past 8 hours): Oxygen Delivery Method Room Air Oxygen Flow Rate 0 Narrative Exam Narrative: General: in no acute distress, resting comfortably in bed watching TV. Objective Labs 05/05/23 05:02 05/05/23 05:02 [facility] Medical History Cerebrovascular accident Chronic GERD Dementia Hyperlipidemia Hypertension Social History household members: children Smoking Status: Former smoker alcohol intake: current Assessment & Plan Assessment & Plan narrative: 1. Chronic debility Stable. Await appropriate and safe discharge. It is anticipated that the state will be providing a daily rate for admit for an adult family home fairly soon. Once that has been obtained, final disposition can be arranged. 2. History of stroke with left-sided weakness Continue Plavix. At his baseline currently. 3. Coronary artery disease Continue Plavix and metoprolol. He is asymptomatic. 4. Hypothyroidism He is presently on 75 mcg daily. He was on 150 mcg daily on admission. His TSH has now normalized. Continue current dose of levothyroxine. 5. Depression He does appear more depressed, especially in light of his son's recent unexpected . He does not wish to adjust his medications. Continue sertraline and dronabinol. He declines meeting with collections specialist Code status DNR Prophy No chemical prophylaxis d/t previous pain from injection site. Disposition Guardian is in place. He is now awaiting [facility] determination of a daily rate for adult family home placement. Quality VTE Deep Vein Thrombosis/Pulmonary Embolism Present on Admission: No
--- NOTE | 2023-05-28 09:49 | PC.NURSE ---
Day shift: Per NOC RN report Pt did not sleep much last night. He is sleeping now w/ no s/s of pain or discomfort. Will give AM meds when he awakes.
[2023-05-28] MEDS: LEVOTHYROXINE 75 MCG TABLET PO (11:11)
[2023-05-28] MEDS: droNABinol 2.5 MG CAPSULE PO (11:13)
[2023-05-28] MEDS: DOCUSATE 100 MG CAPSULE PO ×2 (11:13→20:35)
[2023-05-28] MEDS: CLOPIDOGREL 75 MG TABLET PO (11:13)
--- NOTE | 2023-05-28 12:50 | PC.NURSE ---
Addendum entered by Yfn Kwon R.N. 05/28/23 13:47: Pt asleep now. No s/s of pain or discomfort. Call light in reach and bed alarm is on. Original Note: Day shift: Sons in room at approx 1115 and Pt awake. Has taken AM meds and tolerated well. Ate breakfast and then lunch. Still awake and watching TV with no issues or complaints at this time (1300).
[2023-05-28] MEDS: ZOLPIDEM 5 MG TABLET 10 MG PO (20:35)
[2023-05-28] MEDS: SERTRALINE 50 MG TABLET 100 MG PO (20:36)
[2023-05-29] MEDS: LEVOTHYROXINE 75 MCG TABLET PO (05:05)
[2023-05-29] MEDS: HYDROCODONE/ACET 10/325 TABLET 1 TAB PO ×2 (05:05→21:22)
[2023-05-29] MEDS: droNABinol 2.5 MG CAPSULE PO ×3 (06:04→16:10)
--- NOTE | 2023-05-29 08:04 | PM.PN.1 ---
Subjective Subjective Interval history: 73-year-old male with previous stroke, coronary artery disease, hypothyroidism, depression with vegetative symptoms who is presently admitted secondary to chronic debility and no safe discharge. No changes today. Exam Vital Signs (past 8 hours): Oxygen Delivery Method Room Air Oxygen Flow Rate 0 Narrative Exam Narrative: General: in no acute distress, resting comfortably in bed watching TV. Objective Labs 05/05/23 05:02 05/05/23 05:02 [facility] Medical History Cerebrovascular accident Chronic GERD Dementia Hyperlipidemia Hypertension Social History household members: children Smoking Status: Former smoker alcohol intake: current Assessment & Plan Assessment & Plan narrative: 1. Chronic debility Stable. Await appropriate and safe discharge. It is anticipated that the state will be providing a daily rate for admit for an adult family home fairly soon. Once that has been obtained, final disposition can be arranged. 2. History of stroke with left-sided weakness Continue Plavix. At his baseline currently. 3. Coronary artery disease Continue Plavix and metoprolol. He is asymptomatic. 4. Hypothyroidism He is presently on 75 mcg daily. He was on 150 mcg daily on admission. His TSH has now normalized. Continue current dose of levothyroxine. 5. Depression He does appear more depressed, especially in light of his son's recent unexpected . He does not wish to adjust his medications. Continue sertraline and dronabinol. He declines meeting with regional company truck driver Code status DNR Prophy No chemical prophylaxis d/t previous pain from injection site. Disposition Guardian is in place. He is now awaiting [facility] determination of a daily rate for adult family home placement. Quality VTE Deep Vein Thrombosis/Pulmonary Embolism Present on Admission: No
[2023-05-29] MEDS: CLOPIDOGREL 75 MG TABLET PO (09:28)
[2023-05-29] MEDS: DOCUSATE 100 MG CAPSULE PO ×2 (09:28→21:21)
[2023-05-29 16:00] VITALS: BP 138/62; PULSE 58; RESP 16; TEMP 36.5; O2SAT 98
[2023-05-29] MEDS: TRIAMCINOLONE 0.1% CREAM 15 GM 1 APPLIC TOP (16:06)
[2023-05-29] MEDS: ZOLPIDEM 5 MG TABLET 10 MG PO (21:21)
[2023-05-29] MEDS: diphenhydrAMINE 25 MG TABLET PO (21:22)
[2023-05-29] MEDS: QUETIAPINE 25 MG TABLET PO (21:22)
[2023-05-29] MEDS: SERTRALINE 50 MG TABLET 100 MG PO (21:22)
[2023-05-30] MEDS: LEVOTHYROXINE 75 MCG TABLET PO (06:34)
[2023-05-30] MEDS: HYDROCODONE/ACET 10/325 TABLET 1 TAB PO ×2 (06:34→20:18)
[2023-05-30] MEDS: diphenhydrAMINE 25 MG TABLET PO (06:34)
[2023-05-30] MEDS: droNABinol 2.5 MG CAPSULE PO ×2 (06:35→12:46)
--- NOTE | 2023-05-30 07:35 | P.PN_ITS ---
Subjective Subjective Interval history: 73-year-old male with previous stroke, coronary artery disease, hypothyroidism, depression with vegetative symptoms who is presently admitted secondary to chronic debility and no safe discharge. No changes today. Exam Vital Signs (past 8 hours): Oxygen Delivery Method Room Air Oxygen Flow Rate 0 Narrative Exam Narrative: General: in no acute distress, resting comfortably in bed watching TV. Objective Labs 05/05/23 05:02 05/05/23 05:02 [facility] Medical History Cerebrovascular accident Chronic GERD Dementia Hyperlipidemia Hypertension Social History household members: children Smoking Status: Former smoker alcohol intake: current Assessment & Plan Assessment & Plan narrative: 1. Chronic debility Stable. Await appropriate and safe discharge. It is anticipated that the state will be providing a daily rate for admit for an adult family home fairly soon. Once that has been obtained, final disposition can be arranged. 2. History of stroke with left-sided weakness Continue Plavix. At his baseline currently. 3. Coronary artery disease Continue Plavix and metoprolol. He is asymptomatic. 4. Hypothyroidism He is presently on 75 mcg daily. He was on 150 mcg daily on admission. His TSH has now normalized. Continue current dose of levothyroxine. 5. Depression He does appear more depressed, especially in light of his son's recent unexpected . He does not wish to adjust his medications. Continue sertraline and dronabinol. He declines meeting with tile and marble installer. Code status DNR Prophy No chemical prophylaxis d/t previous pain from injection site. Disposition Guardian is in place. He is now awaiting [facility] determination of a daily rate for adult family home placement. Quality VTE Deep Vein Thrombosis/Pulmonary Embolism Present on Admission: No
[2023-05-30] MEDS: METOPROLOL IR 25 MG TABLET 12.5 MG PO ×2 (09:28→20:18)
[2023-05-30] MEDS: GABAPENTIN 100 MG CAPSULE PO ×2 (09:28→20:18)
[2023-05-30] MEDS: DOCUSATE 100 MG CAPSULE PO ×2 (09:28→20:17)
[2023-05-30] MEDS: CLOPIDOGREL 75 MG TABLET PO (09:28)
[2023-05-30 09:34] VITALS: BP 117/63; PULSE 60; RESP 18; TEMP 36.8
[2023-05-30 10:40] VITALS: O2SAT 98
[2023-05-30 20:14] VITALS: BP 119/57; PULSE 60; RESP 18; TEMP 36.6; O2SAT 97
[2023-05-30] MEDS: SERTRALINE 50 MG TABLET 100 MG PO (20:17)
[2023-05-30] MEDS: QUETIAPINE 25 MG TABLET PO (20:17)
[2023-05-30] MEDS: ZOLPIDEM 5 MG TABLET 10 MG PO (20:18)
[2023-05-31 07:00] VITALS: BP 124/59; PULSE 50; RESP 16; TEMP 36.2; O2SAT 97
--- NOTE | 2023-05-31 07:46 | PM.PN.1 ---
Subjective Subjective Interval history: 73-year-old male with previous stroke, coronary artery disease, hypothyroidism, depression with vegetative symptoms who is presently admitted secondary to chronic debility and no safe discharge. No changes today. Exam Vital Signs (past 8 hours): Oxygen Delivery Method Room Air Oxygen Flow Rate 0 Narrative Exam Narrative: General: in no acute distress, resting comfortably in bed watching TV. Objective Labs 05/05/23 05:02 05/05/23 05:02 [facility] Medical History Cerebrovascular accident Chronic GERD Dementia Hyperlipidemia Hypertension Social History household members: children Smoking Status: Former smoker alcohol intake: current Assessment & Plan Assessment & Plan narrative: 1. Chronic debility Stable. Await appropriate and safe discharge. It is anticipated that the state will be providing a daily rate for admit for an adult family home fairly soon. Once that has been obtained, final disposition can be arranged. 2. History of stroke with left-sided weakness Continue Plavix. At his baseline currently. 3. Coronary artery disease Continue Plavix and metoprolol. He is asymptomatic. 4. Hypothyroidism He is presently on 75 mcg daily. He was on 150 mcg daily on admission. His TSH has now normalized. Continue current dose of levothyroxine. 5. Depression He does appear more depressed, especially in light of his son's recent unexpected . He does not wish to adjust his medications. Continue sertraline and dronabinol. He declines meeting with private branch exchange installer. Code status DNR Prophy No chemical prophylaxis d/t previous pain from injection site. Disposition Guardian is in place. He is now awaiting [facility] determination of a daily rate for adult family home placement. Quality VTE Deep Vein Thrombosis/Pulmonary Embolism Present on Admission: No
[2023-05-31] MEDS: GABAPENTIN 100 MG CAPSULE PO ×2 (08:19→20:10)
[2023-05-31] MEDS: METOPROLOL IR 25 MG TABLET 12.5 MG PO ×2 (08:19→20:10)
[2023-05-31] MEDS: CLOPIDOGREL 75 MG TABLET PO (08:19)
[2023-05-31] MEDS: DOCUSATE 100 MG CAPSULE PO (08:20)
--- NOTE | 2023-05-31 08:49 | PC.NURSE ---
Addendum entered by Jannette Soto R.N. 05/31/23 12:58: Patient is sleeping and has been groggy. Marinol not given. He is resting comfortably. Original Note: Patient is a bit confused this morning. He ate some breakfast and woke up about 20 minutes ago. He is groggy and tired this morning. Denies pain and took meds without any issue.
--- NOTE | 2023-05-31 09:32 | CM.DPC ---
Addendum entered by CHARITY Bradshaw 05/31/23 14:45: ADD: SW received confirmation from Mehdi at [facility] that they can accept pt and SW updated him that we need to wait until tomorrow 06/01 for discussion with HCS and Guardian. SW updated [facility] Letitia and Denisse Flores on [place] acceptance and requesting likely Zoom with patient Thursday for d/c planning. SW met bedside with pt and explained role and discussed possible 4 AFH placement options but waiting to hear back from all 4. Pt confirms again his preference is [facility] if possible and preference would be [facility] over [facility] [address] due to location of [facility]. Pt remembered Melvin from her bedside assessment with pt. Pt agreeable with Zoom discussion with Guardijacqueline Flores to make final decision on AFH placement based on accepting facilities confirmation by tomorrow 06/01. BF Original Note: AFH Planning Cont: SW received an email from his assigned HCS manager field services Letitia Buitrago with pt's Daily rate (ranging anywhere from $146.89-$162.85 [place] and [place]) and a copy of his [facility] Functional Assessment. SW forwarded these documents to the following AFH's that have completed bedside assessment with pt and have been interested: [facility] [address]: [email or web address]: [facility]: [email or web address]: SW requested they review and let SW know by tomorrow Thu06/01/23 if they are still willing to accept pt to their facility for hopeful move in this week. SW will need to update [facility] Letitia Buitrago ([email or web address] as well as pt's Denisse Araujo [phone] once determined which AF's are willing to accept for final decision based on conversation between SW, pt, and Denisse Flores. CHARITY Bradshaw
[2023-05-31] MEDS: droNABinol 2.5 MG CAPSULE PO (17:08)
[2023-05-31] MEDS: SERTRALINE 50 MG TABLET 100 MG PO (20:10)
[2023-05-31] MEDS: HYDROCODONE/ACET 10/325 TABLET 1 TAB PO (20:12)
[2023-05-31] MEDS: ZOLPIDEM 5 MG TABLET 10 MG PO (22:09)
[2023-05-31] MEDS: QUETIAPINE 25 MG TABLET PO (22:10)
[2023-06-01] MEDS: diphenhydrAMINE 25 MG TABLET PO (00:08)
--- NOTE | 2023-06-01 00:51 | PC.NURSE ---
Patient is alert and oriented except to day of month/day of week. Breath sounds CTA. HRR. Denied nausea. BT present and abdomen is soft; incontinent of soft, unformed stool. Is voiding per urinal with occasional episodes of incontinence vs urinal spillage. Is able to move himself in bed. Gait not assessed at this time. Complained of chronic back pain with severity of 7/10 and was medicated with vicodin with pain declining at time of assessment. Did complain of generalized itching at 0000 so was medicated with benadryl. Requested ambien and seroquel at 2210 but is still awake although he states he has been sleeping better. Still with an abrasion to left elbow but no signs of infection. Fall risk score is high as fell back in December after admission to facility; bed alarm is activated.
[2023-06-01] MEDS: droNABinol 2.5 MG CAPSULE PO ×2 (06:33→17:11)
[2023-06-01] MEDS: LEVOTHYROXINE 75 MCG TABLET PO (06:33)
[2023-06-01 07:00] VITALS: BP 111/52; PULSE 58; RESP 16; TEMP 36.6; O2SAT 99
--- NOTE | 2023-06-01 07:30 | P.PN_ITS ---
Subjective Subjective Interval history: 73-year-old male with previous stroke, coronary artery disease, hypothyroidism, depression with vegetative symptoms who is presently admitted secondary to chronic debility and no safe discharge. Patient asking for increased marinol as it helps his mood and appetite. Changed to TID with meals from BID. Exam Vital Signs (past 8 hours): Oxygen Delivery Method Room Air Oxygen Flow Rate 0 Narrative Exam Narrative: General: in no acute distress, resting comfortably in bed watching TV. Objective Labs 05/05/23 05:02 05/05/23 05:02 [facility] Medical History Cerebrovascular accident Chronic GERD Dementia Hyperlipidemia Hypertension Social History household members: children Smoking Status: Former smoker alcohol intake: current Assessment & Plan Assessment & Plan narrative: 1. Chronic debility Stable. Await appropriate and safe discharge. It is anticipated that the state will be providing a daily rate for admit for an adult family home fairly soon. Once that has been obtained, final disposition can be arranged. 2. History of stroke with left-sided weakness Continue Plavix. At his baseline currently. 3. Coronary artery disease Continue Plavix and metoprolol. He is asymptomatic. 4. Hypothyroidism He is presently on 75 mcg daily. He was on 150 mcg daily on admission. His TSH has now normalized. Continue current dose of levothyroxine. 5. Depression He does appear more depressed, especially in light of his son's recent unexpected . He does not wish to adjust his medications. Continue sertraline and dronabinol. He declines meeting with farm appraiser. Code status DNR Prophy No chemical prophylaxis d/t previous pain from injection site. Disposition Guardian is in place. He is now awaiting [facility] determination of a daily rate for adult family home placement. Quality VTE Deep Vein Thrombosis/Pulmonary Embolism Present on Admission: No
[2023-06-01] MEDS: GABAPENTIN 100 MG CAPSULE PO ×2 (09:48→20:41)
[2023-06-01] MEDS: CLOPIDOGREL 75 MG TABLET PO (09:49)
[2023-06-01] MEDS: METOPROLOL IR 25 MG TABLET 12.5 MG PO (09:49)
[2023-06-01] MEDS: DOCUSATE 100 MG CAPSULE PO ×2 (09:49→20:41)
--- NOTE | 2023-06-01 13:03 | CM.DPC ---
Addendum entered by CHARITY Bradshaw 06/01/23 14:27: ADD: SW attempted to call Guardijacqueline Araujo again at 1300 and left msg to inquire if he had chosen an AFH yet. Per [place] and [facility], they have not yet heard from Mark. SW provided Denisse Flores's contact cell phone to both AF to attempt reaching out to him today. BF Original Note: AFH planning: SW heard back from the 4 interested [facility] Family [facility]: [facility]- no longer have a bed available, took too long for HCS assess and daily rate and the room was filled. [facility]- no longer accepting new admits, moving away from being an AFH [facility]- can accept right away. Met with pt yesterday afternoon bedside. [facility]- can accept right away. Willing to come today. JEOVANY emailed [facility] and Denisse Araujo regarding above update and then called Denisse Flores [phone] and discussed above and requested he help make final decision between the two accepting [facility] by late morning so that the process can begin for discharging the pt prior to Thanksgiving. Mark states he will call both AF today. SW called Mark Araujo around 1300 and left msg inquiring which AFH to proceed with for transitioning pt to. Plan: SW following closely for return call from Denisse Araujo towards final determination of which AFH to discharge pt to so that SW can begin the process of admission pwk/meds/etc.. for pt discharge to LTC from the hospital. CHARITY Bradshaw
[2023-06-01] MEDS: HYDROCODONE/ACET 10/325 TABLET 1 TAB PO ×2 (14:29→20:52)
[2023-06-01 20:16] VITALS: BP 119/58; PULSE 58; RESP 16; TEMP 35.9; O2SAT 95
[2023-06-01] MEDS: SERTRALINE 50 MG TABLET 100 MG PO (20:41)
[2023-06-01] MEDS: QUETIAPINE 25 MG TABLET PO (22:27)
[2023-06-01] MEDS: ZOLPIDEM 5 MG TABLET 10 MG PO (22:27)
--- NOTE | 2023-06-02 00:07 | PC.NURSE ---
Patient is alert and mostly oriented; can't remember day of week, day of month. Breath sounds CTA. HRR but bradycardic with rate of 56 so Metoprolol held this evening. Denied nausea. BT present and abdomen is round but soft; has had fecal incontinence at times. Voiding per urinal although sometimes incontinent or spills urinal so he is wearing a pull up. Able to turn himself in bed and prefers to lie on back; declines positioning on sides. Gait not assessed although during day is sometimes agreeable to getting up in chair with walker and 1 assist. Continues to complain of chronic back pain and was medicated earlier with vicodin with pain declining from 7/10 to 610. Has been taking both ambien and seroquel at bedtime and last night slept from 0000 until 0700. Fall risk score is high and bed alarm is activated. Patient reports he is unaware of where he will be discharging to so discussed with him possibility that if decision is made he could discharge as early as tomorrow. Patient became teary with discussion and states he doesn't want to leave until next week and that he won't go until Dr. Scanlon is back on Thursday. Further discussion with him explaining that option may not be available depending on circumstances with finances and guardian. He called his son who came to visit. Son reportedly told him he would make sure his room decorations get taken down and sent with him or he would be willing to pick them up once he is discharged.
[2023-06-02] MEDS: droNABinol 2.5 MG CAPSULE PO ×3 (06:31→17:55)
[2023-06-02] MEDS: LEVOTHYROXINE 75 MCG TABLET PO (06:31)
[2023-06-02] MEDS: DOCUSATE 100 MG CAPSULE PO ×2 (08:25→21:35)
[2023-06-02] MEDS: METOPROLOL IR 25 MG TABLET 12.5 MG PO ×2 (08:25→21:34)
[2023-06-02] MEDS: CLOPIDOGREL 75 MG TABLET PO (08:25)
[2023-06-02] MEDS: GABAPENTIN 100 MG CAPSULE PO ×2 (08:26→21:34)
[2023-06-02] MEDS: HYDROCODONE/ACET 10/325 TABLET 1 TAB PO ×2 (15:35→21:34)
--- NOTE | 2023-06-02 19:20 | P.PN_ITS ---
Subjective Subjective Date Patient Seen: 06/02/23 Time Patient Seen: 08:00 Interval history: No acute changes Exam Vital Signs (past 8 hours): Oxygen Delivery Method Room Air Oxygen Flow Rate 0 Narrative Exam Narrative: General: in no acute distress Objective Labs 05/05/23 05:02 05/05/23 05:02 [facility] Medical History Cerebrovascular accident Chronic GERD Dementia Hyperlipidemia Hypertension Social History household members: children Smoking Status: Former smoker alcohol intake: current Assessment & Plan Assessment & Plan narrative: 1. Chronic debility Stable. Await appropriate and safe discharge. 2. History of stroke with left-sided weakness Continue Plavix. At his baseline currently. 3. Coronary artery disease Continue Plavix and metoprolol. He is asymptomatic. 4. Hypothyroidism He is presently on 75 mcg daily. He was on 150 mcg daily on admission. His TSH has now normalized. Continue current dose of levothyroxine. 5. Depression He does appear more depressed, especially in light of his son's recent unexpected . He does not wish to adjust his medications. Continue sertraline and dronabinol. He declines meeting with assembler engine. Quality VTE Deep Vein Thrombosis/Pulmonary Embolism Present on Admission: No
[2023-06-02 20:00] VITALS: BP 120/82; PULSE 66; RESP 16; TEMP 36.6; O2SAT 94
[2023-06-02] MEDS: SERTRALINE 50 MG TABLET 100 MG PO (21:34)
[2023-06-02] MEDS: diphenhydrAMINE 25 MG TABLET PO (21:34)
[2023-06-02] MEDS: QUETIAPINE 25 MG TABLET PO (22:18)
[2023-06-02] MEDS: ZOLPIDEM 5 MG TABLET 10 MG PO (22:18)
[2023-06-03] MEDS: HYDROCODONE/ACET 10/325 TABLET 1 TAB PO ×2 (05:52→20:16)
[2023-06-03] MEDS: diphenhydrAMINE 25 MG TABLET PO (05:52)
[2023-06-03] MEDS: LEVOTHYROXINE 75 MCG TABLET PO (05:52)
[2023-06-03] MEDS: droNABinol 2.5 MG CAPSULE PO ×3 (08:24→16:29)
[2023-06-03] MEDS: DOCUSATE 100 MG CAPSULE PO ×2 (08:24→20:16)
[2023-06-03] MEDS: CLOPIDOGREL 75 MG TABLET PO (08:24)
[2023-06-03] MEDS: METOPROLOL IR 25 MG TABLET 12.5 MG PO ×2 (08:24→20:16)
[2023-06-03] MEDS: GABAPENTIN 100 MG CAPSULE PO ×2 (08:25→20:16)
--- NOTE | 2023-06-03 08:59 | CM.DPC ---
DCP Cont. Reviewed EMR for status updates. Completed the Medicaid Transportation form and faxed to [facility]. Please see address/phone number for Anali RO below: Anali [facility] [address] [place] [id number]
--- NOTE | 2023-06-03 13:21 | CM.DPC ---
DCP Cont. Per AF, we will need to fax the [facility] intake form along with the prescriptions that pt will d/c with on Thursday morning before he d/c's. Form will be attached to his facesheet.
[2023-06-03 13:49] VITALS: BP 117/50; PULSE 57; RESP 16; TEMP 37; O2SAT 98
--- NOTE | 2023-06-03 16:18 | PM.PN.1 ---
Subjective Subjective Interval history: No acute issues. Exam Vital Signs (past 8 hours): - 06/03/23 13:49 Temperature 98.6 F Pulse Rate 57 L Respiratory Rate 16 Blood Pressure 117/50 L Pulse Oximetry 98 Oxygen Delivery Method Room Air Oxygen Flow Rate 0 Narrative Exam Narrative: General: in no acute distress Objective Labs 05/05/23 05:02 05/05/23 05:02 [facility] Medical History Cerebrovascular accident Chronic GERD Dementia Hyperlipidemia Hypertension Social History household members: children Smoking Status: Former smoker alcohol intake: current Assessment & Plan Assessment & Plan narrative: 1. Chronic debility Stable. Await appropriate and safe discharge. 2. History of stroke with left-sided weakness Continue Plavix. At his baseline currently. 3. Coronary artery disease Continue Plavix and metoprolol. He is asymptomatic. 4. Hypothyroidism He is presently on 75 mcg daily. He was on 150 mcg daily on admission. His TSH has now normalized. Continue current dose of levothyroxine. 5. Depression He does appear more depressed, especially in light of his son's recent unexpected . He does not wish to adjust his medications. Continue sertraline and dronabinol. 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 Quality VTE Deep Vein Thrombosis/Pulmonary Embolism Present on Admission: No
[2023-06-03] MEDS: QUETIAPINE 25 MG TABLET PO (20:16)
[2023-06-03] MEDS: SERTRALINE 50 MG TABLET 100 MG PO (20:16)
[2023-06-03] MEDS: ZOLPIDEM 5 MG TABLET 10 MG PO (20:16)
[2023-06-04] MEDS: LEVOTHYROXINE 75 MCG TABLET PO (06:44)
[2023-06-04] MEDS: droNABinol 2.5 MG CAPSULE PO ×3 (06:44→16:49)
[2023-06-04] MEDS: GABAPENTIN 100 MG CAPSULE PO ×2 (09:36→20:12)
[2023-06-04] MEDS: CLOPIDOGREL 75 MG TABLET PO (09:36)
[2023-06-04 10:08] VITALS: BP 127/66; PULSE 56; RESP 14; TEMP 36.6; O2SAT 97
--- NOTE | 2023-06-04 11:50 | PM.PN.1 ---
Subjective Subjective Date Patient Seen: 06/04/23 Time Patient Seen: 08:00 Interval history: No acute issues Exam Vital Signs (past 8 hours): - 06/04/23 10:08 Temperature 97.9 F Pulse Rate 56 L Respiratory Rate 14 Blood Pressure 127/66 Pulse Oximetry 97 Oxygen Delivery Method Room Air Oxygen Flow Rate 0 Narrative Exam Narrative: General: in no acute distress Objective Labs 05/05/23 05:02 05/05/23 05:02 [facility] Medical History Cerebrovascular accident Chronic GERD Dementia Hyperlipidemia Hypertension Social History household members: children Smoking Status: Former smoker alcohol intake: current Assessment & Plan Assessment & Plan narrative: 1. Chronic debility Stable. Await appropriate and safe discharge. 2. History of stroke with left-sided weakness Continue Plavix. At his baseline currently. 3. Coronary artery disease Continue Plavix and metoprolol. He is asymptomatic. 4. Hypothyroidism He is presently on 75 mcg daily. He was on 150 mcg daily on admission. Continue current dose of levothyroxine. 5. Depression Continue sertraline and dronabinol Quality VTE Deep Vein Thrombosis/Pulmonary Embolism Present on Admission: No
--- NOTE | 2023-06-04 14:07 | CM.DPC ---
DCP Cont. Reviewed EMR and team rounds for status updates. HARNESSMAKER had emailed pt's Guardian, Mark, on 06/03 re: need for payment for [facility], as well as wanting to clarify if he will cover the cost of pt's medical transportation to his new AF placement on Thursday. Recieved return call from Mark, he doesn't have pt's BD or social security number, and wants the [facility] payment form sent to him to complete. HARNESSMAKER responded to his email and requested a fax number, waiting for reply. Did provide the last 4-of pt's SS# and pt's , but was surprised as pt's legal Guardian that he didn't already have that information available. [facility] will need ALL the scrips on pt's med list faxed to them, along with the intake forms, which are attached to pt's facesheet. F/u Thursday with both Mark and [facility], as well as arrange for transportation by 1:30pm, for a 2:30 arrival time at the [facility].
[2023-06-04] MEDS: METOPROLOL IR 25 MG TABLET 12.5 MG PO (20:10)
[2023-06-04] MEDS: DOCUSATE 100 MG CAPSULE PO (20:10)
[2023-06-04] MEDS: SERTRALINE 50 MG TABLET 100 MG PO (20:11)
[2023-06-04] MEDS: HYDROCODONE/ACET 10/325 TABLET 1 TAB PO (20:12)
[2023-06-05] MEDS: HYDROCODONE/ACET 10/325 TABLET 1 TAB PO ×3 (03:05→13:09)
[2023-06-05] MEDS: LEVOTHYROXINE 75 MCG TABLET PO (06:23)
[2023-06-05] MEDS: droNABinol 2.5 MG CAPSULE PO (06:59)
[2023-06-05 08:30] VITALS: BP 132/60; PULSE 55; RESP 16; TEMP 36.5; O2SAT 96
[2023-06-05] MEDS: GABAPENTIN 100 MG CAPSULE PO (08:35)
[2023-06-05] MEDS: CLOPIDOGREL 75 MG TABLET PO (08:35)
[2023-06-05] MEDS: METOPROLOL IR 25 MG TABLET 12.5 MG PO (08:36)
--- NOTE | 2023-06-05 09:03 | CM.DPNOTE ---
Sil requested that I call [facility] for [phone] transport pt. to [facility], [address] [place] [address], [place]. I called [facility] and spoke to Osmel at approx 0830 and Osmel said we could be billed for this serivice instead of paying up front. The cost is $224.25. I relayed this information to Sil. Gabriela Lee, [employer]chandising Associate.
--- NOTE | 2023-06-05 11:15 | P.DS_ITS ---
History of Present Illness History of Present Illness Chief complaint: weakness slurred speech Narrative: 72-year-old gentleman with hypertension, hyperlipidemia, dementia, previous stroke with left-sided weakness, coronary artery disease status post stents, depression who was brought into the emergency department on the evening of December 12 with chief complaint of weakness and slurred speech. His son, Sudhakar, contacted EMS and patient was transported into the emergency department. Patient had also been complaining of chest discomfort and back discomfort. He underwent workup inclusive of head CT, EKG, and lab work. All of these were negative. The emergency room doctor plan to discharge the patient. Unfortunately, they were unable to get in contact with the patient's son and he remained in the emergency department. On the morning of December 13, apparently the patient's son presented to the emergency department, stayed for 5 minutes, refused to wait for the physician as he stated he had to go to work, and refused to leave his phone number due to concerns that the police would get his number. I was asked to admit the patient, but he is at baseline and does not appear to meet even observation criteria. I spoke w/Charity, inpatient care mgmt, and was advised that previous efforts at placement were unsuccessful as pt's son would not provide patient's financial information to determine if he can qualify for Medicaid. Per ED SOURCING ASSISTANT's note, patient's son has brought him to the emergency department 6 times in the last 8 months and has delayed discharge and refused to pick patient up once he has been medically cleared. The emergency department staff attempted to contact the son, Sudhakar on 12 occasions yesterday and could not get in contact. Markos MARADIAGA was also contacted notified the ER staff that the patient's son, Sudhakar is not allowed near his due to a restraining order she has against him. Therefore, he can not return home. He is reportedly presently ?couch surfing?. Ultimately, the ED staff were able to get in touch with the patient's son, Sudhakar at his place of business. He reported that his dad can not stay at friend's houses with him as he would not be welcome. The patient can not return to [facility] home where his is as the is afraid of the patient. Sudhakar reported that the patient gets out of bed, walks around, defecate on himself and bangs on the rosales. It was recommended that the patient's son, Sudhakar, comes and picks up his dad and they stay in a hotel. However, Sudhakar reports he can not afford it. He is estranged from his siblings and reportedly did not have other phone numbers for the social organization professor to contact. Continued efforts were made to discharge the patient out of the emergency department, but unfortunately they were not successful. I was contacted by the emergency department physician again today regarding admission as she feels the emergency department is not a safe place for him to be given his history of dementia. The hospital benefits administrator on-call was contacted and apparently approved his admission to the acute care floor as a boarder without medical need. Currently, patient complains only of being thirsty. Reports he feels poorly but has no focal complaints. He is asking for water. He also tells me he would like to be placed in a senior care facility. Discharge Providers Provider Date of admission: 12/14/22 15:06 Discharge Date: 06/05/23 Primary care physician: Charity Georges MD Consults: 12/13/22 12:14 Consult to [facility] - Professor Of Theology Stat Comment: need placement 12/13/22 21:07 Consult to Physical Therapy Evaluate & Treat Comment: Physician Instructions: Evaluate and Treat 12/14/22 14:56 Consult to Discharge Planning Routine Comment: 12/15/22 10:55 Consult to Dietitian, Adult Routine Comment: Reason For Exam: chronic pcm 12/16/22 13:13 Consult to Pastoral Services Routine Comment: Pt wants to speak to new grad rn 01/09/23 15:50 Consult to Occupational Therapy Evaluate & Treat Comment: Physician Instructions: SLUMS Need Cog eval 01/10/23 10:03 Consult to Speech Therapy Evaluate & Treat Comment: Physician Instructions: Cog eval 03/09/23 16:39 Consult to Physical Therapy Evaluate & Treat Comment: wants to get up and walk daily Physician Instructions: Evaluate and Treat 04/13/23 15:25 Consult to Physical Therapy Evaluate & Treat Comment: Physician Instructions: Evaluate and Treat Discharge provider: Guzman Scanlon DO Summary Hospital Course Discharge Diagnosis: 1. Chronic debility Stable. Going to [facility]. 2. History of stroke with left-sided weakness Continue Plavix. At his baseline currently. 3. Coronary artery disease Continue Plavix and metoprolol. He is asymptomatic. 4. Hypothyroidism He is presently on 75 mcg daily. He was on 150 mcg daily on admission. Continue current dose of levothyroxine. 5. Depression Continue sertraline and dronabinol 6. Itching Continue benadryl PRN at night and kenalog PRN 7. Insomnia Continue ambien and seroquel nightly Hospital Course: Admitted for family not taking care of patient who due to cog deficit unable to make decisions for himself. SOURCING ASSISTANT worked tirelessly to have guardian appointed by the state and apply for medicaid. Finally after 172 days patient was accepted to [facility] in [place]. His home synthroid dose was lowered. Discharged on pain meds, marinol, metoprolol, plavix, ambien, seroquel, gabapentin and zoloft. Exam Vital Signs (past 8 hours): - 06/05/23 08:30 Temperature 97.7 F Pulse Rate 55 L Respiratory Rate 16 Blood Pressure 132/60 Pulse Oximetry 96 Oxygen Flow Rate 0 Oxygen Delivery Method Room Air Oxygen Flow Rate 0 Narrative Exam Narrative: General: in no acute distress Objective Labs 05/05/23 05:02 05/05/23 05:02 [facility] Medical History Cerebrovascular accident Chronic GERD Dementia Hyperlipidemia Hypertension Social History household members: children Smoking Status: Former smoker alcohol intake: current Discharge Plan Discharge Plan Patient Disposition: Home Provider Discharge Comment: 72-year-old gentleman with hypertension, hyperlipidemia, dementia, previous stroke with left-sided weakness, coronary artery disease status post stents, depression who was brought into the emergency department on the evening of December 12 with chief complaint of weakness and slurred speech.? He was cleared of any acute medical issues, but on due to family psychosocial issues, he is unable to return home.? He has no family willing to care for him.? Therefore, he was admitted for placement. Stayed 172 days until a group family home was found and patient was discharged there on 06/05/23. Discharge orders & Medications Prescriptions: New clopidogrel 75 mg Tablet 75 mg PO DAILY Qty: 30 0RF diphenhydramine HCl [Allergy (diphenhydramine)] 25 mg Tablet 25 mg PO BEDTIME PRN (Reason: itching) Qty: 30 0RF docusate sodium 100 mg Capsule 100 mg PO DAILY PRN (Reason: constipation) Qty: 30 0RF dronabinol 2.5 mg Capsule 2.5 mg PO 0700,1200,1700 Qty: 90 0RF quetiapine 25 mg Tablet 25 mg PO BEDTIME PRN (Reason: sleep) Qty: 30 0RF triamcinolone acetonide 0.5 % Cream 1 applic topical BID PRN (Reason: skin irritation) Qty: 15 0RF hydrocodone-acetaminophen 10-325 mg Tablet 1 tab PO Q4HR PRN (Reason: pain 4-10) Qty: 30 0RF levothyroxine [Synthroid] 75 mcg Tablet 75 mcg PO 0700 Qty: 30 0RF gabapentin 100 mg Capsule 100 mg PO BID Qty: 60 0RF metoprolol tartrate 25 mg Tablet 12.5 mg PO BID Qty: 30 0RF zolpidem [Ambien] 10 mg tablet 10 mg PO BEDTIME PRN (Reason: insomnia) Qty: 30 0RF sertraline [Zoloft] 100 mg tablet 100 mg PO DAILY Qty: 30 0RF Discontinued sertraline 50 mg tablet 50 mg PO DAILY clopidogrel 75 mg Tablet 75 mg PO DAILY Qty: 30 0RF cephalexin 500 mg capsule 500 mg PO BID 5 Days Qty: 10 0RF Rx Instructions: 12/09 x 5 days levothyroxine 150 mcg tablet 150 mcg PO DAILY Patient Comments: take 1 tablet by mouth once daily metoprolol succinate 25 mg tablet extended release 24 hr 12.5 mg PO DAILY Patient Comments: take 1/2 tablet by mouth once daily Follow up/Referrals: Charity Georges MD [Primary Care Provider] - Visit Report/Discharge Packet Instructions: DI for Muscle Weakness Stand Alone Forms: Patient Portal/API, Stroke Signs & Symptoms Discharge Data Primary Care Provider: Charity Georges Attending Provider: Rani Bartlett Admit Date/Time: 12/14/22 15:06 Quality VTE Deep Vein Thrombosis/Pulmonary Embolism Present on Admission: No
--- NOTE | 2023-06-05 12:06 | CM.DPC ---
Addendum entered and electronically signed by CHARITY Smith 06/28/23 12:08: Correction to name of AFH that pt discharged to, but same address. Pt d/c on 06/05/23 to [facility] at the following address: [address] [place] [address]. [id number]. Contacted pt's guardian, Mark Araujo, later that day to confirm that everything went ok, he stated that he was in contact with Mehdi, the [facility] winding inspector, and was assisting with payment arrangements, etc, and that it seemed to be fine. Mehdi had told this LAUNCH STEWARD that he had been in contact with Mark and that he was the one that Mark had confirmed with that pt was to go to his AF there in [place]. Original Note: DCP Cont. Reviewed EMR and team rounds for status updates. Pt will d/c today between 1:30 and 2:00pm to [facility]. [facility] will transport, they will bill [facility] for this, as pt's guardian is not yet set-up to provide payment. Faxed intake forms and hard copies of the scrips to [facility]. [facility] in[facility] pharmacy will provide 3-days worth of his meds just in case [facility] can't deliver right away. Guardian is updated. No further d/c needs identified at this time. Guardian: Mark Araujo, REAGAN, [employer] [address] [place] [id number] P [phone]
--- NOTE | 2023-06-17 10:50 | CM.DPNOTE ---
Spoke with Volunteer Sheep Rancher who explained she spoke with Gareth Cotter before his discharge about connecting him with the [facility] in [place] to secure a home bound clinic manager that would be able to bring Gareth sheriff. Provided Gareth Cotter's guardian's name and contact information. ERIC
== END 2023-06-05 13:50 | disposition home or self-care (01) ==
LOC: ED 12-14 07:15 → AC 12-14 15:06
PROVIDERS: Emergency Medicine; Family Medicine; Internal Medicine; Student in an Organized Health Care Education/Training Program; Admitting Provider Family Medicine; Emergency Provider Emergency Medicine; PCP Internal Medicine; Referring Provider Emergency Medicine; Visit Provider Family Medicine
DX: R53.1 Weakness (principal); R47.81 Slurred speech; I10 Essential (primary) hypertension; E78.5 Hyperlipidemia, unspecified; F03.90 Unspecified dementia, unspecified severity, without behavioral disturbance, psychotic disturbance, mood disturbance, and anxiety; I69.354 Hemiplegia and hemiparesis following cerebral infarction affecting left non-dominant side; I25.10 Atherosclerotic heart disease of native coronary artery without angina pectoris; F32.A Depression, unspecified
CPT/HCPCS: 36415; 70450; 70551; 76700; 80048; 80053; 80074; 80076; 80320; 81001; 82550; 82607; 82746; 83540; 83550; 83615; 83690; 83735; 84439; 84443; 84484; 85025; 85027; 85045; 85610; 85730; 87077; 87086; 87186; 93005; 93010; 96372; 97110; 97116; 97162; 97165; 97530; 99285; G0378; J1650